=== PATIENT | female | born 1950 | race Two or more races ===

== ENCOUNTER 2024-05-09 18:03 | Inpatient (IN) | payer OTHER ==
[~2024-05-09] VITALS: Ht 162.6 cm; Wt 119.8 kg
--- NOTE | 2024-05-09 18:34 | ECG ---
[facility] Test Date: 2024-05-09 Test Time: 18:21:00 Pat Name: ARELIS CROWLEY Department: er Room: 0216T Gender: F Clinical Administrator: gp : 1950 Requested By: PRISCILA ALLEN Order Number: [id number] Reading MD: Noel Mojica Measurements Intervals [place] Rate: 132 P: 0 OR: 0 QRS: -36 QRSD: 96 T: -5 QT: 346 QTc: 513 Interpretive Statements Atrial fibrillation Left axis deviation Repol abnrm suggests ischemia, inferior leads Electronically Signed On 05-10-2024 14:59:39 PDT by Noel Mojica Please click the below link to view image of tracing.
[2024-05-09 19:00] VITALS: PULSE 115; RESP 17; O2SAT 95
--- NOTE | 2024-05-09 19:52 | ED.PDOC ---
History of Present Illness HPI Comments 73 y/o F, with a Hx of HLD, HTN, hypothyroidism, morbid obesity, and 2xC- sections, presents with c/o non-radiating, lower abdominal pain, nausea, diarrhea, and poor appetite, today. Patient reports being sent from an urgent care facility after being seen, earlier today, for unprovoked onset of persisting symptoms, with exception of diarrhea, 3 days ago. Patient states on also having urine retention, constipation, and fever symptoms, initially, for the first 2 days that subsided on their own, with onset of diarrhea, today. Patient denies having any vomiting, blood-streaked stools, urinary symptoms, weakness, fever, chills, or other associated symptoms or modifiers at this time. 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 Hx Family History Family History: Unknown Social History Smoker: Non-Smoker Alcohol: Denies ETOH Use Drugs: Denies Drug Use Lives In: Home Constitutional: denies: chills, diaphoresis, fatigue, fever, malaise, sweats, weakness, others EENTM: denies: blurred vision, double vision, ear bleeding, ear discharge, ear drainage, ear pain, ear ringing, eye pain, eye redness, hearing loss, mouth pain, mouth swelling, nasal discharge, nose bleeding, nose congestion, nose pain , photophobia, tearing, throat pain, throat swelling, voice changes, others Respiratory: denies: cough, hemoptysis, orthopnea, SOB at rest, shortness of breath, SOB with excertion, stridor, wheezing, others Cardiovascular: denies: chest pain, dizzy spells, diaphoresis, Dyspnea on exertion, edema, irregular heart beat, left arm pain, lightheadedness, palpitations, PND, syncope, others Gastrointestinal: reports: abdominal pain (lower abdominal region ), diarrhea, nausea, poor appetite; denies: abdomen distended, blood streaked bowels, constipated, dysphagia, difficulty swallowing, hematemesis, melena, poor fluid intake, rectal bleeding, rectal pain, vomiting, others Genitourinary: denies: abnormal vagina bleeding, burning, dyspareunia, dysuria, flank pain, frequency, hematuria, incontinence, pain, , vagina discharge, urgency, others Neurological: denies: dizziness, fainting, headache, left sided numbness, left sided weakness, numbness, paresthesia, pre-existing deficit, right sided numbness, right sided weakness, seizure, speech problems, tingling, tremors, weakness, others Musculoskeletal: denies: back pain, gout, joint pain, joint swelling, muscle pain, muscle stiffness, neck pain, others Integumetry: denies: bruises, change in color, change in hair/nails, dryness, laceration, lesions, lumps, rash, wounds, others Hematologic/Lymphatic: denies: anemia, blood clots, easy bleeding, easy bruising, swollen glands, others Endocrine: denies: excessive hunger, excessive sweating, excessive thirst, excessive urination, flushing, intolerance to cold, intolerance to heat, unexplained weight gain, unexplained weight loss, others Psychiatric: denies: anxiety, bipolar disorder, depression, hopeless, panic disorder, schizophrenia, sleepless, suicidal, others All Other Systems: Reviewed and Negative Physical Exam General Appearance: Moderate Distress, Obese HEENT: Normal ENT Inspection, Pharynx Normal, TMs Normal Neck: Full Range of Motion, Non-Tender, Normal, Normal Inspection Respiratory: Chest Non-Tender, Lungs Clear, No Accessory Muscle Use, No Respiratory Distress, Normal Breath Sounds Cardiovascular: No Edema, No JVD, No Murmur, No Gallop, Normal Peripheral Pulses, Regular Rate/Rhythm Breast Exam: Deferred Gastrointestinal: No Organomegaly, No Pulsatile Mass, Normal Bowel Sounds, Soft, Other (lower sub-pannus tenderness ) Genitalia: Deferred Pelvic: Deferred Rectal: Deferred Extremities: No calf tenderness, Normal capillary refill, Normal inspection, Normal range of motion, Non-tender, No pedal edema Musculoskeletal : Apperance: Normal 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 Was a procedure done?: No EKG EKG : Pulse Rate (adult): 132 [place]: Normal Cardiac Rhythm: Afib Block: None Hypertrophy: None ST: Normal Differential Dx Considerations may include: gastritis, gastroenteritis, appendicitis, diverticulitis, cholecystitis, cholelithiasis, nephrolithiasis, PUD, spoiled food, UTI, acute abdomen X-Ray, Labs, Meds, VS Vital Signs Date Time Temp Pulse Resp B/P (MAP) Pulse Ox O2 Delivery O2 Flow Rate FiO2 05/09/24 22:16 98 21 149/51 05/09/24 22:11 98 149/58 05/09/24 20:08 98.8 109 15 155/49 (84) 96 98.8 05/09/24 20:08 109 15 96 Room Air* 0 21 05/09/24 19:52 132 05/09/24 19:00 115 17 95 Room Air* 0 21 05/09/24 19:00 115 14 125/52 (76) 93 05/09/24 18:21 132 05/09/24 18:15 98.6 132 18 121/96 (104) 98 Lab Test 05/09/24 21:26 05/09/24 21:14 05/09/24 20:14 05/09/24 18:24 Range/Units Troponin I High Sensitivity 324 *H 322 *H </=34 ng/L Urine Color [place] H Yellow Urine Clarity Turbid H Clear Urine pH 6.0 5.0-9.0 Urine Specific [place] 1.024 1.001-1.035 Urine Protein 3+ H Negative Urine Ketones Trace Negative Urine Blood 1+ H Negative /uL Urine Nitrite Negative Negative Urine Bilirubin 1+ H Negative Urine Urobilinogen 3 H Negative mg/dL Urine Leukocyte Esterase 3+ Negative /uL Urine RBC 4 0 - 4 /hpf Urine WBC 316 0 - 5 /hpf Urine Squamous Epithelial Cells Few <5 /hpf Urine Bacteria None seen None Seen /hpf Urine Hyaline Casts Mod 0 - 2 /lpf Urine Granular Casts Few 0 /lpf Urine Mucus Moderate None Seen Urine Glucose Normal Normal mg/dL White Blood Count 22.2 H 4.4-10.8 10^3/uL Red Blood Count 3.75 L 4.0-5.20 10^6/uL Hemoglobin 11.1 L 12.2-16.2 g/dL Hematocrit 34.2 L 36.0-46.0 % Mean Corpuscular Volume 91.2 80.0-100.0 fL Mean Corpuscular Hemoglobin 29.7 28.0-32.0 pg Mean Corpuscular Hemoglobin Concent 32.6 32.0-36.0 g/dL Red Cell Distribution Width 14.8 H 11.8-14.3 % Platelet Count 385 140-450 10^3/uL Mean Platelet Volume 8.6 6.9-10.8 fL Neutrophils (%) (Auto) 86.7 H 37.0-80.0 % Lymphocytes (%) (Auto) 5.4 L 10.0-50.0 % Monocytes (%) (Auto) 7.0 0.0-12.0 % Eosinophils (%) (Auto) 0.6 0.0-7.0 % Basophils (%) (Auto) 0.3 0.0-2.0 % Neutrophils # (Auto) 19.3 H 1.6-8.6 10 ^3/uL Lymphocytes # (Auto) 1.2 0.4-5.4 10 ^3/uL Monocytes # (Auto) 1.6 H 0-1.3 10 ^3/uL Eosinophils # (Auto) 0.1 0-0.8 10 ^3/uL Basophils # (Auto) 0.1 0-0.2 10 ^3/uL Nucleated Red Blood Cells 0.0 % Prothrombin Time 12.1 H 9.3-11.8 sec Prothrombin Time INR 1.15 0.9-1.15 Activated Partial Thromboplast Time 28.3 24.5-34.5 SEC Sodium Level 132 L 136-145 mmol/L Potassium Level 3.4 L 3.5-5.1 mmol/L Chloride Level 101 98-107 mmol/L Carbon Dioxide Level 25 20-31 mmol/L Anion Gap 6 5-15 Blood Urea Nitrogen 10 9-23 mg/dL Creatinine 0.91 0.550-1.02 mg/dL Glomerular Filtration Rate Calc 66 >90 mL/min BUN/Creatinine Ratio 11.0 10.0-20.0 Serum Glucose 111 H 74-106 mg/dL Calcium Level 9.0 8.7-10.4 mg/dL Total Bilirubin 1.0 0.2-1.0 mg/dL Aspartate Amino Transferase (AST) 36 13-40 U/L Alanine Aminotransferase (ALT) 78 H 7-40 U/L Alkaline Phosphatase 150 H 46-116 U/L B-Type Natriuretic Peptide 722.28 0-100 pg/mL Total Protein 6.0 5.7-8.2 g/dL Albumin 3.6 3.2-4.8 g/dL Lipase 29 12-53 U/L POC Glucose 123 H 70-106 mg/dl Current Medications Medications (Trade) Dose Ordered Sig/Lanette Route Start Time Stop Time Status Last Admin Metoprolol Tartrate (Lopressor) 5 mg Q5M IV 05/09/24 19:45 05/09/24 22:11 Hydromorphone HCl (Dilaudid Injection) 1 mg ONCE ONCE IV 05/09/24 20:15 05/09/24 20:16 DC 05/09/24 22:16 Sodium Chloride 1,000 ml @ 1,000 mls/hr Q1H ONCE IV 05/09/24 20:15 05/09/24 21:14 DC 05/09/24 22:08 Ondansetron HCl (Zofran) 4 mg ONCE ONCE IV 05/09/24 20:15 05/09/24 20:16 DC 05/09/24 22:16 [place] [id number] Ph: [phone] DIAGNOSTIC IMAGING Diagnostic Imaging Report : [id number] Signed PATIENT: ARELIS CROWLEY ACCT: [id number] UNIT: [id number] : 1950 LOC: ER ROOM / BED: / AGE / SEX: 73 / F ADM STATUS: REG ER SERVICE 02 ORDERING PHYSICIAN: PRISCILA ALLEN MD PROCEDURE(s): CXRP - CHEST PORTABLE REASON: abd pain ORDER NUMBER(s): [id number], ACCESSION NUMBER(s): [id number] CHEST RADIOGRAPH Indication:abd pain Technique: Single frontal view of the chest was obtained Comparison: None FINDINGS: Lines and Tubes: None Lungs: No focal consolidation. Pleura: No effusion. No pneumothorax. Cardiomediastinal contours: Unremarkable Bones: No acute osseous abnormality. IMPRESSION: No acute cardiopulmonary disease. ATED BY: JANAK SCANLON DO DICTATED DATE/TIME: 05/09/242208 SIGNED BY: JANAK SCANLON DO SIGNED DATE/TIME: 05/09/242208 CC: [place] [id number] Ph: [phone] DIAGNOSTIC IMAGING Diagnostic Imaging Report : [id number] Signed PATIENT: ARELIS CROWLEY ACCT: [id number] UNIT: [id number] : 1950 LOC: ER ROOM / BED: / AGE / SEX: 73 / F ADM STATUS: REG ER SERVICE 02 ORDERING PHYSICIAN: PRISCILA ALLEN MD PROCEDURE(s): ABPL - CT AB PEL WO CON-NO ORAL OR IV REASON: abd pain ORDER NUMBER(s): [id number], ACCESSION NUMBER(s): [id number] Exam: CT CT AB PEL WO CON-NO ORAL OR IV History: abd pain Comparison Study: None available at time of dictation. TECHNIQUE: Multidetector CT of the abdomen was performed from lung bases to pubic symphysis. Imaging was performed without IV contrast. Axial, coronal and sagittal multiplanar reformats were obtained from the axial data set by the technologist. Radiation Dose Information: CT Dose: CTDI volume is 25.83 mGy. Dose-length product is 1601.61 mGy*cm FINDINGS: Evaluation of solid organs is limited due to lack of intravenous contrast use. Findings: Lung Bases: No acute or significant lung base finding. Normal heart size. No pleural or pericardial effusion. Liver: The liver is normal in size. No focal lesions. Gallbladder and Biliary Tree: Unremarkable Spleen: Unremarkable Pancreas: The pancreas is grossly normal in appearance. Adrenal Glands: Unremarkable Kidneys: Kidneys are grossly normal without calculi or hydronephrosis. Bladder: Grossly unremarkable for degree of distention. SBowel: The stomach is grossly normal in appearance. Small hiatal hernia. Sigmoid diverticulosis with radiographic findings suggesting diverticulitis. Pneumoperitoneum is seen in the pelvis. The appendix is not visualized; however, no secondary findings of acute appendicitis identified. Ascites: Absent Lymphadenopathy: No mesenteric, retroperitoneal or periportal lymphadenopathy. Abdominal Wall and Mesentery: Unremarkable. Vasculature: The visualized abdominal aorta is normal in size and caliber. Evaluation of abdominal and pelvic vessels is limited due to lack of intravenous contrast. Pelvic Organs: Unremarkable Musculoskeletal: No aggressive focal bony lesions, acute fractures or dislocation. Soft tissues: Unremarkable IMPRESSION: 1. Diverticulitis with air in the retroperitoneum. No findings to suggest abscess at this time. 2. Cholelithiasis 3. Small hiatal hernia. Radiation optimization: All CT scans at this facility use at least one of these dose optimization techniques: automated exposure control mA and/or kV adjustment per patient size (includes targeted exams where dose is matched to clinical indication) or iterative reconstruction. ATED BY: SHELLI KIM Jr., DO DICTATED DATE/TIME: 05/09/242214 SIGNED BY: SHELLI KIM Jr., SIGNED DATE/TIME: 05/09/242214 CC: First troponin is is 322. Second troponin is 324. EKG shows no signs of ischemia, but AFib rhythm at a heart rate of 150 which was treated with metoprolol. UA reveals urinary tract [place] [address]. CMP essentially normal except elevated LFTs UA reveals urinary tract infection. The patient was started on antibiotics Zosyn and Levaquin. She was given IV fluids. Pain management with Dilaudid. NG tube was placed for diverticulitis. Time of 1ST Reevaluation: 19:10 Reevaluation 1ST: Unchanged Patient Education/Counseling: Diagnosis, Treatment Family Education/Counseling: No Family Present Departure 1 Departure Time of Disposition: 23:06 Impression: Primary Impression: Urinary tract infection Qualified Codes: N30.01 - Acute cystitis with hematuria Additional Impressions: Atrial fibrillation Qualified Codes: I48.91 - Unspecified atrial fibrillation Non-STEMI (non-ST elevated myocardial infarction) Elevated brain natriuretic peptide (BNP) level Cholelithiasis Qualified Codes: K80.42 - Calculus of bile duct with acute cholecystitis without obstruction Hiatal hernia Diverticulitis Elevated LFTs Disposition: ADMITTED INPATIENT Admit to: Tele Condition: Guarded Critical Care Note Critical Care Time?: Yes (1 hr-critical care time only) Stability Stability form required: No Heart Score Heart Score: Heart Score Response (Comments) Value History Slightly Suspicious 0 EKG Repolarization Disturb 1 Age >65 2 Risk Factors >3 or Hx ASHD 2 Troponin >3 x's Normal limit 2 Total 7 I personally scribed for PRISCILA ALLEN MD ([email or web address]) on 05/09/24 at 19:52. Electronically submitted by Aniceto Reed ([email or web address]). I personally scribed for PRISCILA ALLEN MD ([email or web address]) on 05/09/24 at 22:52. Electronically submitted by Aniceto Reed ([email or web address]). PRISCILA ALLEN MD May 09, 2024 19:52
[2024-05-09 20:08] VITALS: PULSE 109; RESP 15; O2SAT 96
[2024-05-09 20:39] LABS: Basophils # (auto) 0.1 10 ^3/uL (0-0.2); Basophils % (auto) 0.3 % (0.0-2.0); Eosinophils # (auto) 0.1 10 ^3/uL (0-0.8); Eosinophils % (auto) 0.6 % (0.0-7.0); Hematocrit 34.2 % (36.0-46.0); Hemoglobin 11.1 g/dL (12.2-16.2); Lymphocytes # (auto) 1.2 10 ^3/uL (0.4-5.4); Lymphocytes % (auto) 5.4 % (10.0-50.0); Mean Corpuscular Hemoglobin 29.7 pg (28.0-32.0); Mean Corpuscular Hgb Conc. 32.6 g/dL (32.0-36.0); Mean Corpuscular Volume 91.2 fL (80.0-100.0); Monocytes # (auto) 1.6 10 ^3/uL (0-1.3); Neutrophils # (auto) 19.3 10 ^3/uL (1.6-8.6); Neutrophils % (auto) 86.7 % (37.0-80.0); Platelet Count (auto) 385 10^3/uL (140-450); Red Blood Cells 3.75 10^6/uL (4.0-5.20); Red Cell Distribution Width 14.8 % (11.8-14.3); White Blood Cell 22.2 10^3/uL (4.4-10.8)
[2024-05-09 20:56] LABS: Alanine Aminotransferase 78 U/L (7-40); Albumin 3.6 g/dL (3.2-4.8); Alkaline Phosphatase 150 U/L (46-116); Anion Gap 6 (5-15); Aspartate Aminotransferase 36 U/L (13-40); Blood Urea Nitrogen 10 mg/dL (9-23); Carbon Dioxide 25 mmol/L (20-31); Chloride 101 mmol/L (98-107); Glucose 111 mg/dL (74-106); Lipase 29 U/L (12-53); Potassium 3.4 mmol/L (3.5-5.1); Sodium 132 mmol/L (136-145)
[2024-05-09 21:25] LABS: INR 1.15 (0.9-1.15); Partial Thromboplastin Time 28.3 SEC (24.5-34.5); Prothrombin Time 12.1 sec (9.3-11.8)
[2024-05-09 21:28] LABS: Urine Bacteria None Seen /hpf (None Seen)
[2024-05-09 21:54] LABS: Urine Blood 1+ /uL (Negative); Urine Clarity Turbid (Clear); Urine Color Orange (Yellow); Urine Hyaline Cast MOD /lpf (0 - 2); Urine Mucus MODERATE (None Seen); Urine Protein, UAD 3+ (Negative); Urine Specific Gravity 1.024 (1.001-1.035); Urine Urobilinogen 3 mg/dL (Negative); Urine WBC 316 /hpf (0 - 5)
[2024-05-09] MEDS: SODIUM CHLORIDE 0.9% 1,000 ML IV ONE ×2 (22:08→23:00)
[2024-05-09] MEDS: METOPROLOL TARTRATE 1MG/1ML-5ML VIAL IV SCH (22:11)
--- NOTE | 2024-05-09 22:11 | DVH ---
CHEST RADIOGRAPH Indication:abd pain Technique: Single frontal view of the chest was obtained Comparison: None FINDINGS: Lines and Tubes: None Lungs: No focal consolidation. Pleura: No effusion. No pneumothorax. Cardiomediastinal contours: Unremarkable Bones: No acute osseous abnormality. IMPRESSION: No acute cardiopulmonary disease.
[2024-05-09] MEDS: ONDANSETRON HCL 4 MG/2 ML VIAL IV ONE (22:16)
[2024-05-09] MEDS: HYDROmorphone HCL 2 MG/ML VL/or syr IV ONE (22:16)
--- NOTE | 2024-05-09 22:17 | DVH ---
Exam: CT CT AB PEL WO CON-NO ORAL OR IV History: abd pain Comparison Study: None available at time of dictation. TECHNIQUE: Multidetector CT of the abdomen was performed from lung bases to pubic symphysis. Imaging was performed without IV contrast. Axial, coronal and sagittal multiplanar reformats were obtained fr om the axial data set by the technologist. Radiation Dose Information: CT Dose: CTDI volume is 25.83 mGy. Dose-length product is 1601.61 mGy*cm FINDINGS: Evaluation of solid organs is limited due to lack of intravenous contrast use. Findings: Lung Bases: No acute or significant lung base finding. Normal heart size. No pleural or pericardial effusion. Liver: The liver is normal in size. No focal lesions. Gallbladder and Biliary Tree: Unremarkable Spleen: Unremarkable Pancreas: The pancreas is grossly normal in appearance. Adrenal Glands: Unremarkable Kidneys: Kidneys are grossly normal without calculi or hydronephrosis. Bladder: Grossly unremarkable for degree of distention. SBowel: The stomach is grossly normal in appearance. Small hiatal hernia. Sigmoid diverticulosis with radiographic findings suggesting diverticulitis. Pneumoperitoneum is seen in the pelvis. The appen hong is not visualized; however, no secondary findings of acute appendicitis identified. Ascites: Absent Lymphadenopathy: No mesenteric, retroperitoneal or periportal lymphadenopathy. Abdominal Wall and Mesentery: Unremarkable. Vasculature: The visualized abdominal aorta is normal in size and caliber. Evaluation of abdominal a nd pelvic vessels is limited due to lack of intravenous contrast. Pelvic Organs: Unremarkable Musculoskeletal: No aggressive focal bony lesions, acute fractures or dislocation. Soft tissues: Unremarkable IMPRESSION: 1. Diverticulitis with air in the retroperitoneum. No findings to suggest abscess at this time. 2. Cholelithiasis 3. Small hiatal hernia. Radiation optimization: All CT scans at this facility use at least one of these dose optimization salian hniques: automated exposure control mA and/or kV adjustment per patient size (includes targeted exam s where dose is matched to clinical indication) or iterative reconstruction.
[2024-05-09] MEDS ORDERED: MORPHINE SULFATE INJ 2 MG/ml SYRG IV PRN (23:00)
[2024-05-09] MEDS ORDERED: ONDANSETRON HCL 4 MG/2 ML VIAL IV PRN (23:00)
[2024-05-09] MEDS ORDERED: NITROGLYCERIN 0.4 MG SL TAB SL PRN (23:00)
[2024-05-10] VITALS (9 sets, daily range): BP systolic 90–143; BP diastolic 25–67; PULSE 67–138; RESP 18–22; TEMP 98–100; O2SAT 90–98
--- NOTE | 2024-05-10 00:39 | DVHHP2 ---
History of Present Illness Reason for Visit: Abdominal pain History of Present Illness 73-year-old female presents for evaluation of abdominal pain. Patient presents with a four day history of lower abdominal pain with associated nausea and diarrhea for the past two days. Denies fever or chills. Denies cardiac or respiratory symptoms. Past Medical History Hypothyroid, hypertension and dyslipidemia Past Surgical History Family History Noncontributory Smoke: No ALCOHOL: none Drugs: None Lives: with Family Review of Systems Review of Systems Review of systems are currently negative otherwise addressed in HPI. Allergies: Coded Allergies: NO KNOWN ALLERGIES (Unverified , 05/09/24) Medications Current Medications Medications Dose Ordered Sig/Lanette Route Start Time Stop Time Status Last Admin Dose Admin Metoprolol Tartrate 5 mg Q5M IV 05/09/24 19:45 05/09/24 22:11 5 MG Ceftriaxone Sodium 50 ml @ 100 mls/hr DAILY@09 IV 05/10/24 09:00 Metronidazole 100 ml @ 100 mls/hr Q8HR IV 05/10/24 06:00 Aspirin 81 mg DAILY PO 05/10/24 10:00 Atenolol 25 mg BID PO 05/10/24 10:00 Levothyroxine Sodium 125 mcg QAM@0600 PO 05/10/24 06:00 Lisinopril 40 mg DAILY PO 05/10/24 10:00 Atorvastatin Calcium 40 mg HS PO 05/10/24 22:00 Acetaminophen/ Hydrocodone Bitart 1 tab Q4HP PRN PO 05/09/24 23:00 Ondansetron HCl 4 mg Q4HP PRN IV 05/09/24 23:00 UNV Acetaminophen 650 mg Q6HP PRN PO 05/09/24 23:00 Morphine Sulfate 2 mg Q6HPRN PRN IV 05/09/24 23:00 Nitroglycerin 0.4 mg Q5MINP PRN SL 05/09/24 23:00 Morphine Sulfate 2 mg Q30M PRN IV 05/09/24 23:00 Exam Vital Signs Vital Signs Date Time Temp Pulse Resp B/P (MAP) Pulse Ox O2 Delivery O2 Flow Rate FiO2 05/09/24 22:16 98 21 149/51 05/09/24 20:08 98.8 96 98.8 05/09/24 20:08 Room Air* 0 21 Exam Gen: 73-year-old female in mild distress, morbidly obese Skin: Warm, dry, normal color and texture, no rash. HEENT: Normocephalic atraumatic, mucous membranes moist and pink. Neck: Cervical and supraclavicular nodes normal without enlargement, trachea is midline, thyroid gland is normal without masses. Pulmonary: Clear to auscultation and percussion bilaterally. Cardiac: Regular rate and rhythm. No murmur Abdomen: Soft, lower abdominal pain, nondistended, bowel sounds present all 4 quadrants, no guarding, no rigidity, no organomegaly. Extremities: No cyanosis, clubbing, no edema Neuro: Cranial nerves II through XII grossly intact, normal affect and speech, no focal motor deficits. Labs/Xrays ORDERING PHYSICIAN: PRISCILA ALLEN MD PROCEDURE(s): CXRP - CHEST PORTABLE REASON: abd pain ORDER NUMBER(s): [id number], ACCESSION NUMBER(s): [id number] CHEST RADIOGRAPH Indication:abd pain Technique: Single frontal view of the chest was obtained Comparison: None FINDINGS: Lines and Tubes: None Lungs: No focal consolidation. Pleura: No effusion. No pneumothorax. Cardiomediastinal contours: Unremarkable Bones: No acute osseous abnormality. IMPRESSION: No acute cardiopulmonary disease. RING PHYSICIAN: PRISCILA ALLEN MD PROCEDURE(s): ABPL - CT AB PEL WO CON-NO ORAL OR IV REASON: abd pain ORDER NUMBER(s): [id number], ACCESSION NUMBER(s): [id number] Exam: CT CT AB PEL WO CON-NO ORAL OR IV History: abd pain Comparison Study: None available at time of dictation. TECHNIQUE: Multidetector CT of the abdomen was performed from lung bases to pubic symphysis. Imaging was performed without IV contrast. Axial, coronal and sagittal multiplanar reformats were obtained from the axial data set by the technologist. Radiation Dose Information: CT Dose: CTDI volume is 25.83 mGy. Dose-length product is 1601.61 mGy*cm FINDINGS: Evaluation of solid organs is limited due to lack of intravenous contrast use. Findings: Lung Bases: No acute or significant lung base finding. Normal heart size. No pleural or pericardial effusion. Liver: The liver is normal in size. No focal lesions. Gallbladder and Biliary Tree: Unremarkable Spleen: Unremarkable Pancreas: The pancreas is grossly normal in appearance. Adrenal Glands: Unremarkable Kidneys: Kidneys are grossly normal without calculi or hydronephrosis. Bladder: Grossly unremarkable for degree of distention. SBowel: The stomach is grossly normal in appearance. Small hiatal hernia. Sigmoid diverticulosis with radiographic findings suggesting diverticulitis. Pneumoperitoneum is seen in the pelvis. The appendix is not visualized; however, no secondary findings of acute appendicitis identified. Ascites: Absent Lymphadenopathy: No mesenteric, retroperitoneal or periportal lymphadenopathy. Abdominal Wall and Mesentery: Unremarkable. Vasculature: The visualized abdominal aorta is normal in size and caliber. Ev aluation of abdominal and pelvic vessels is limited due to lack of intravenous contrast. Pelvic Organs: Unremarkable Musculoskeletal: No aggressive focal bony lesions, acute fractures or dislocation. Soft tissues: Unremarkable IMPRESSION: 1. Diverticulitis with air in the retroperitoneum. No findings to suggest abscess at this time. 2. Cholelithiasis 3. Small hiatal hernia. Radiation optimization: All CT scans at this facility use at least one of these dose optimization techniques: automated exposure control mA and/or kV adjustment per patient size (includes targeted exams where dose is matched to clinical indication) or iterative reconstruction. Labs Test 05/09/24 23:42 05/09/24 23:20 05/09/24 21:14 05/09/24 20:14 Range/Units Lactic Acid Level 0.7 0.4-2.0 mmol/L Troponin I High Sensitivity 307 *H </=34 ng/L Urine Color Ernul H Yellow Urine Clarity Turbid H Clear Urine pH 6.0 5.0-9.0 Urine Specific [place] 1.024 1.001-1.035 Urine Protein 3+ H Negative Urine Ketones Trace Negative Urine Blood 1+ H Negative /uL Urine Nitrite Negative Negative Urine Bilirubin 1+ H Negative Urine Urobilinogen 3 H Negative mg/dL Urine Leukocyte Esterase 3+ Negative /uL Urine RBC 4 0 - 4 /hpf Urine WBC 316 0 - 5 /hpf Urine Squamous Epithelial Cells Few <5 /hpf Urine Bacteria None seen None Seen /hpf Urine Hyaline Casts Mod 0 - 2 /lpf Urine Granular Casts Few 0 /lpf Urine Mucus Moderate None Seen Urine Glucose Normal Normal mg/dL White Blood Count 22.2 H 4.4-10.8 10^3/uL Red Blood Count 3.75 L 4.0-5.20 10^6/uL Hemoglobin 11.1 L 12.2-16.2 g/dL Hematocrit 34.2 L 36.0-46.0 % Mean Corpuscular Volume 91.2 80.0-100.0 fL Mean Corpuscular Hemoglobin 29.7 28.0-32.0 pg Mean Corpuscular Hemoglobin Concent 32.6 32.0-36.0 g/dL Red Cell Distribution Width 14.8 H 11.8-14.3 % Platelet Count 385 140-450 10^3/uL Mean Platelet Volume 8.6 6.9-10.8 fL Neutrophils (%) (Auto) 86.7 H 37.0-80.0 % Lymphocytes (%) (Auto) 5.4 L 10.0-50.0 % Monocytes (%) (Auto) 7.0 0.0-12.0 % Eosinophils (%) (Auto) 0.6 0.0-7.0 % Basophils (%) (Auto) 0.3 0.0-2.0 % Neutrophils # (Auto) 19.3 H 1.6-8.6 10 ^3/uL Lymphocytes # (Auto) 1.2 0.4-5.4 10 ^3/uL Monocytes # (Auto) 1.6 H 0-1.3 10 ^3/uL Eosinophils # (Auto) 0.1 0-0.8 10 ^3/uL Basophils # (Auto) 0.1 0-0.2 10 ^3/uL Nucleated Red Blood Cells 0.0 % Prothrombin Time 12.1 H 9.3-11.8 sec Prothrombin Time INR 1.15 0.9-1.15 Activated Partial Thromboplast Time 28.3 24.5-34.5 SEC Sodium Level 132 L 136-145 mmol/L Potassium Level 3.4 L 3.5-5.1 mmol/L Chloride Level 101 98-107 mmol/L Carbon Dioxide Level 25 20-31 mmol/L Anion Gap 6 5-15 Blood Urea Nitrogen 10 9-23 mg/dL Creatinine 0.91 0.550-1.02 mg/dL Glomerular Filtration Rate Calc 66 >90 mL/min BUN/Creatinine Ratio 11.0 10.0-20.0 Serum Glucose 111 H 74-106 mg/dL Calcium Level 9.0 8.7-10.4 mg/dL Total Bilirubin 1.0 0.2-1.0 mg/dL Aspartate Amino Transferase (AST) 36 13-40 U/L Alanine Aminotransferase (ALT) 78 H 7-40 U/L Alkaline Phosphatase 150 H 46-116 U/L B-Type Natriuretic Peptide 722.28 0-100 pg/mL Total Protein 6.0 5.7-8.2 g/dL Albumin 3.6 3.2-4.8 g/dL Lipase 29 12-53 U/L Test 05/09/24 18:24 Range/Units POC Glucose 123 H 70-106 mg/dl Assessment/Plan Assessment/Plan Assessment Acute diverticulitis Acute abdominal pain Elevated troponin, downtrending Hypokalemia UTI Morbid obesity Plan Admit the patient to telemetry hospitalist GI consultation Cardiology consult Clear liquid diet Rocephin/Flagyl Replete electrolytes Resume home medications Continue treatment per orders. Plan discussed with: Patient My Orders Orders - LULU MINOR Procedure Category Date Status Time Stool Occult Blood LAB 05/09/24 Logged 22:59 Stool Bacterial ELIDA 05/09/24 Logged Culture 22:59 * Gi Dvh Sampler And Test Preparer CONS 05/09/24 Transmitted 22:59 Urine Bacterial ELIDA 05/09/24 In Process Culture 22:59 Ceftriaxone 1gm/50ml PHA 05/10/24 In Process D5w (Rocephin) 09:00 Metronidazole PHA 05/10/24 In Process 500mg/100ml (Flagyl 06:00 * Cardiology Consult CONS 05/09/24 Transmitted 22:59 Aspirin Tablet PHA 05/10/24 In Process 10:00 Atenolol Tablet PHA 05/10/24 In Process (Tenormin Tablet) 10:00 Levothyroxine Tablet PHA 05/10/24 In Process (Synthroid Tablet) 06:00 Lisinopril Tablet PHA 05/10/24 In Process (Zestril Tablet) 10:00 Atorvastatin (Lipitor) PHA 05/10/24 In Process 22:00 Admit ADMIT 05/09/24 Transmitted 22:59 Hydrocodone-Acet PHA 05/09/24 In Process 5/325mg Tab ([place] 23:00 Ondansetron Hcl PHA 05/09/24 Pending (Zofran) 23:00 Complete Blood Count LAB 05/10/24 Logged 04:00 Comprehensive LAB 05/10/24 Logged Metabolic Panel 04:00 Echo 2d Mode Cardiac US 05/09/24 Logged DOP 22:59 Condition: Fair SRINI 05/09/24 In Process 22:59 Acetaminophen Tablet PHA 05/09/24 In Process (Tylenol Tablet) 23:00 Clear Liq Diet DIET 05/10/24 Transmitted Breakfast Bedrest With Bathroom SRINI 05/09/24 In Process Privileg 22:59 Morphine Sulfate PHA 05/09/24 In Process Injection 23:00 Nitroglycerin PHA 05/09/24 In Process Sublingual (Ntrostat 23:00 Morphine Sulfate PHA 05/09/24 In Process Injection 23:00 Stat Ekg For Chest [facility] 05/09/24 In Process Pain 22:59 Notify Of Changes [facility] 05/09/24 In Process From Base 22:59 Disintegrator Operator For [facility] 05/09/24 In Process 24 Hours 22:59 Emergency Dysrhythmia [facility] 05/09/24 In Process Protocol 22:59 Rhythm Strips Once [facility] 05/09/24 In Process Every Shift 22:59 Oxygen By Nasal RT 05/09/24 Transmitted Cannula 22:59 Date of Service: May 09, 2024 Billing Provider: LULU MINOR Common Visit Codes: [id number] INP/OBS CARE (HIGH) LULU MINOR May 10, 2024 00:39
[2024-05-10] MEDS ORDERED: CHOL20007 PO (04:48)
[2024-05-10] MEDS ORDERED: LEVO125T7 PO (04:48)
[2024-05-10] MEDS ORDERED: OMEG1400 PO (04:48)
[2024-05-10] MEDS ORDERED: ATEN-60 PO (04:48)
[2024-05-10] MEDS ORDERED: ASCO500T11 PO (04:48)
[2024-05-10] MEDS ORDERED: VITA1POW XX (04:48)
[2024-05-10] MEDS ORDERED: LISI40TA16 PO (04:48)
[2024-05-10] MEDS: metroNIDAZOLE 500MG/100ML 100 ML IV SCH (05:14)
[2024-05-10] MEDS: POTASSIUM CHL 20 Meq TABLET PO ONE (05:15)
[2024-05-10] MEDS: LEVOTHYROXINE SODIUM 50 MCG TAB PO SCH (05:15)
[2024-05-10] MEDS: PIPERACILLIN-TAZOB 3.375GM 100 ML IV ONE (05:15)
[2024-05-10 06:08] LABS: Basophils # (auto) 0 10 ^3/uL (0-0.2); Basophils % (auto) 0.2 % (0.0-2.0); Eosinophils # (auto) 0.4 10 ^3/uL (0-0.8); Hematocrit 30.2 % (36.0-46.0); Hemoglobin 10.1 g/dL (12.2-16.2); Lymphocytes # (auto) 1.2 10 ^3/uL (0.4-5.4); Lymphocytes % (auto) 5.5 % (10.0-50.0); Mean Corpuscular Hemoglobin 30.2 pg (28.0-32.0); Mean Corpuscular Hgb Conc. 33.3 g/dL (32.0-36.0); Mean Corpuscular Volume 90.7 fL (80.0-100.0); Monocytes # (auto) 1.9 10 ^3/uL (0-1.3); Neutrophils # (auto) 17.9 10 ^3/uL (1.6-8.6); Neutrophils % (auto) 83.3 % (37.0-80.0); Platelet Count (auto) 359 10^3/uL (140-450); Red Blood Cells 3.33 10^6/uL (4.0-5.20); Red Cell Distribution Width 14.8 % (11.8-14.3); White Blood Cell 21.5 10^3/uL (4.4-10.8)
[2024-05-10 06:51] LABS: Alanine Aminotransferase 63 U/L (7-40); Albumin 3.2 g/dL (3.2-4.8); Alkaline Phosphatase 138 U/L (46-116); Anion Gap 10 (5-15); Aspartate Aminotransferase 30 U/L (13-40); BUN/Creatinine Ratio 13.1 (10.0-20.0); Blood Urea Nitrogen 14 mg/dL (9-23); Calcium 8.6 mg/dL (8.7-10.4); Carbon Dioxide 22 mmol/L (20-31); Chloride 103 mmol/L (98-107); Glucose 106 mg/dL (74-106); Potassium 3.6 mmol/L (3.5-5.1); Sodium 135 mmol/L (136-145)
[2024-05-10 06:52] LABS: Bilirubin, Total 0.6 mg/dL (0.2-1.0); Total Protein 5.6 g/dL (5.7-8.2)
[2024-05-10 08:57] LABS: Magnesium 1.7 mg/dL (1.6-2.6)
[2024-05-10 08:58] LABS: Phosphorus 3.7 mg/dL (2.4-5.1)
[2024-05-10] MEDS: cefTRIAXone 1GM/50ML D5W 50 ML IV SCH (09:24)
[2024-05-10] MEDS: ACETAMINOPHEN 325 MG TAB PO PRN (09:30)
[2024-05-10] MEDS ORDERED: ENOXAPARIN SOD 100 MG/1 ML SYRINGE SC SCH (10:00)
[2024-05-10] MEDS: ASPirin 81 mg TAB PO SCH (11:00)
[2024-05-10] MEDS: LISINOPRIL 20 MG TAB PO SCH (11:00)
[2024-05-10] MEDS: ATENOLOL 25 MG TAB PO SCH (11:00)
[2024-05-10] MEDS: ENOXAPARIN SOD 150 MG/1 ML SYRINGE SC SCH (11:00)
--- NOTE | 2024-05-10 11:06 | DVHINCON2 ---
Date Seen: May 10, 2024 Referring Physician Rob Covington NP Reason for Consultation Elevated Troponin History of Present Illness Vane Reyna is a 73-year-old female patient who presents to the ED with constant, oppressive lower abdominal pain which started on 05/06/2024) associated with fever, chills constipation anuria which lasted 48 hours, and then presented diarrhea, prompting her visit to the ED. denies palpitation, syncope, chest pain, dyspnea, nausea, vomiting, bloody stool, any other kind of bleeding, recent travel, sick contacts, dysuria and motor or sensory deficits. 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 Surgical history: in two opportunities, three eye surgeries (cataracts and retinal detachment) Family history: Noncontributory Social history: Lives in [place] with . Denies tobacco, alcohol and other drug abuse Allergies: Seasonal Home medication: Vitamin ACD, atenolol 25 mg p.o. b.i.d., lisinopril 40 mg p.o. daily, levothyroxine 125 mcg p.o. daily, Arvilla three. Patient seen and examined at bedside. Currently continues with abdominal pain. Was on clear liquid diet, switch to NPO due to CT findings (diverticulitis with air in retroperitoneum) Past Medical History Per HPI Past Surgical History Per HPI Family History: Hypertension G8 MOTHER, , Age: 99 Family History Per HPI Social History Per HPI Allergies: Coded Allergies: NO KNOWN ALLERGIES (Unverified , 05/09/24) Home Meds Reported Medications Ascorbic Acid (VITAMIN C TABLET) 500 Mg Tb, PO, TAB 05/10/24 Vitamin A (Synthetic) (Vitamin A) 1 Pow Pow, 1 XX, POW 05/10/24 Cholecalciferol (VITAMIN D3) 2,000 Unit Tab, PO, TAB 05/10/24 Arvilla-3 Fatty Acids (Arvilla-3) 1,400 Mg Cap, PO, CAP 05/10/24 Levothyroxine Sodium (Levothyroxine Sodium) 125 Mcg Tab, 125 MCG PO QAM for 30 Days, MCG 05/10/24 Lisinopril (Lisinopril) 40 Mg Tab, 40 MG PO DAILY for 30 Days, MG 05/10/24 Atenolol (Atenolol) 25 Mg Tab, 25 MG PO BID for 30 Days, MG 05/10/24 Current Medications Current Medications Medications (Trade) Dose Ordered Sig/Lanette Route PRN Reason Start Time Stop Time Status Last Admin Metoprolol Tartrate (Lopressor) 5 mg Q5M IV 05/09/24 19:45 05/10/24 08:04 DC 05/09/24 22:11 Ceftriaxone Sodium 50 ml @ 100 mls/hr DAILY@09 IV 05/10/24 09:00 05/10/24 09:24 Metronidazole 100 ml @ 100 mls/hr Q8HR IV 05/10/24 06:00 05/10/24 05:14 Aspirin 81 mg DAILY PO 05/10/24 10:00 Atenolol (Tenormin Tablet) 25 mg BID PO 05/10/24 10:00 Levothyroxine Sodium (Synthroid Tablet) 125 mcg QAM@0600 PO 05/10/24 06:00 05/10/24 05:15 Lisinopril (Zestril Tablet) 40 mg DAILY PO 05/10/24 10:00 Atorvastatin Calcium (Lipitor) 40 mg HS PO 05/10/24 22:00 Acetaminophen/ Hydrocodone Bitart ([place] 5/325MG Tab) 1 tab Q4HP PRN PO MODERATE PAIN (4-6 PAIN SCALE) 05/09/24 23:00 Ondansetron HCl (Zofran) 4 mg Q4HP PRN IV NAUSEA / VOMITING 05/09/24 23:00 Hold Acetaminophen (Tylenol Tablet) 650 mg Q6HP PRN PO PAIN SCALE 1-3 OR TEMP>100.4 05/09/24 23:00 05/10/24 09:30 Morphine Sulfate 2 mg Q6HPRN PRN IV SEVERE PAIN (7-10 PAIN SCALE) 05/09/24 23:00 Nitroglycerin (Ntrostat Sublingual) 0.4 mg Q5MINP PRN SL FOR CHEST PAIN 05/09/24 23:00 Morphine Sulfate 2 mg Q30M PRN IV FOR CHEST PAIN 05/09/24 23:00 Enoxaparin Sodium (Lovenox) 130 mg Q12HR SC 05/10/24 10:00 UNV Enoxaparin Sodium (Lovenox) 130 mg BID SC 05/10/24 10:00 Review of Systems Per HPI Vital Signs Vital Signs Date Time Temp Pulse Resp B/P (MAP) Pulse Ox O2 Delivery O2 Flow Rate FiO2 05/10/24 09:31 98.7 107 22 106/25 (52) 90 98.7 05/10/24 02:04 Nasal Cannula* 2 28 Physical Exam Patient lying in bed, in no acute distress General: Lucid, afebrile, mucosae are moist Cardiovascular: Variable S1 and S2, tachycardic. No murmurs, gallops or rubs Respiratory: Normal ventilation mechanics. Clear lung sounds on auscultation Abdomen: Distended, predominant, diffuse tenderness on superficial palpation, no organomegaly, reduced bowel sounds MSK/skin: Mobilizes 4 limbs. Skin is dry and warm Neurological: Oriented in 3 spheres. No motor no sensitive deficits. Pupils are isocoric and reactive Labs/Diagnostic Data Labs Test 05/10/24 05:35 05/10/24 05:25 05/09/24 23:42 05/09/24 23:20 Range/Units Phosphorus Level 3.7 2.4-5.1 mg/dL Magnesium Level 1.7 1.6-2.6 mg/dL White Blood Count 21.5 H 4.4-10.8 10^3/uL Red Blood Count 3.33 L 4.0-5.20 10^6/uL Hemoglobin 10.1 L 12.2-16.2 g/dL Hematocrit 30.2 #L 36.0-46.0 % Mean Corpuscular Volume 90.7 80.0-100.0 fL Mean Corpuscular Hemoglobin 30.2 28.0-32.0 pg Mean Corpuscular Hemoglobin Concent 33.3 32.0-36.0 g/dL Red Cell Distribution Width 14.8 H 11.8-14.3 % Platelet Count 359 140-450 10^3/uL Mean Platelet Volume 8.5 6.9-10.8 fL Neutrophils (%) (Auto) 83.3 H 37.0-80.0 % Lymphocytes (%) (Auto) 5.5 L 10.0-50.0 % Monocytes (%) (Auto) 9.0 0.0-12.0 % Eosinophils (%) (Auto) 2.0 0.0-7.0 % Basophils (%) (Auto) 0.2 0.0-2.0 % Neutrophils # (Auto) 17.9 H 1.6-8.6 10 ^3/uL Lymphocytes # (Auto) 1.2 0.4-5.4 10 ^3/uL Monocytes # (Auto) 1.9 H 0-1.3 10 ^3/uL Eosinophils # (Auto) 0.4 0-0.8 10 ^3/uL Basophils # (Auto) 0 0-0.2 10 ^3/uL Nucleated Red Blood Cells 0.0 % Sodium Level 135 L 136-145 mmol/L Potassium Level 3.6 3.5-5.1 mmol/L Chloride Level 103 98-107 mmol/L Carbon Dioxide Level 22 20-31 mmol/L Anion Gap 10 5-15 Blood Urea Nitrogen 14 9-23 mg/dL Creatinine 1.07 H 0.550-1.02 mg/dL Glomerular Filtration Rate Calc 55 >90 mL/min BUN/Creatinine Ratio 13.1 10.0-20.0 Serum Glucose 106 74-106 mg/dL Hemoglobin A1c 5.5 <5.7 % A1C Calcium Level 8.6 L 8.7-10.4 mg/dL Total Bilirubin 0.6 0.2-1.0 mg/dL Aspartate Amino Transferase (AST) 30 13-40 U/L Alanine Aminotransferase (ALT) 63 H 7-40 U/L Alkaline Phosphatase 138 H 46-116 U/L Total Protein 5.6 L 5.7-8.2 g/dL Albumin 3.2 3.2-4.8 g/dL Vitamin B12 Level 313 211-911 pg/mL Vitamin D 25-Hydroxy 48.6 30.0-100 ng/mL Thyroid Stimulating Hormone (TSH) 0.74 0.55-4.78 uIU/mL Lactic Acid Level 0.7 0.4-2.0 mmol/L Troponin I High Sensitivity 307 *H </=34 ng/L Test 05/09/24 21:14 05/09/24 20:14 05/09/24 18:24 Range/Units Urine Color Leonard H Yellow Urine Clarity Turbid H Clear Urine pH 6.0 5.0-9.0 Urine Specific [place] 1.024 1.001-1.035 Urine Protein 3+ H Negative Urine Ketones Trace Negative Urine Blood 1+ H Negative /uL Urine Nitrite Negative Negative Urine Bilirubin 1+ H Negative Urine Urobilinogen 3 H Negative mg/dL Urine Leukocyte Esterase 3+ Negative /uL Urine RBC 4 0 - 4 /hpf Urine WBC 316 0 - 5 /hpf Urine Squamous Epithelial Cells Few <5 /hpf Urine Bacteria None seen None Seen /hpf Urine Hyaline Casts Mod 0 - 2 /lpf Urine Granular Casts Few 0 /lpf Urine Mucus Moderate None Seen Urine Glucose Normal Normal mg/dL Prothrombin Time 12.1 H 9.3-11.8 sec Prothrombin Time INR 1.15 0.9-1.15 Activated Partial Thromboplast Time 28.3 24.5-34.5 SEC B-Type Natriuretic Peptide 722.28 0-100 pg/mL Lipase 29 12-53 U/L POC Glucose 123 H 70-106 mg/dl Assessment NSTEMI probable type 2 secondary to sepsis Atrial fibrillation RVR of unknown duration (chads Vasc 3 / has bled 0) secondary hypercoagulability state Rule out mesenteric ischemia secondary to AFib Sepsis secondary to diverticulitis with probable perforation Cholelithiasis Hypertension Hypothyroidism Morbid obesity Plan/Recommendation Most likely cause of elevated troponin is sepsis due to diverticulitis with probable perforation. Patient's EKG shows AFib RVR of unknown time, we will indicate rate control at this time, no cardioversion. Have hold enoxaparin since patient may need urgent surgery. Consulted surgery, patient is currently NPO Ordered echocardiogram, pending Ordered abdominal CT with contrast to rule out acute mesenteric ischemia. Discussed case with Dr. Cho, patient, family and nurses: NSTEMI probably secondary to sepsis due to perforated diverticulitis. Diagnosed AFib RVR of unknown time, have hold enoxaparin at this time since unclear if patient will require surgery. Suggest ruling out mesenteric ischemia. Pending echocardiogram Plan discussed with: Patient, Daughter, Other (Nurses) Date of Service: May 10, 2024 Billing Provider: YESSICA CHO MD Cardiology Common Codes: [id number] INP/OBS CARE (High), [id number] CARE 30-74 MIN NANETTE CRAFT RESIDENT May 10, 2024 11:06
--- NOTE | 2024-05-10 13:02 | DVHINCON2 ---
GI Consult Consult Note GI consult note Date of Consultation: 05/10/2024 Chief Complaint: Diverticulitis Referring Physician: Adria BEY H&P: 73-year-old female admitted for abdominal pain Patient admits to lower abdominal pain started five days ago. Patient has nausea, no vomiting Patient is started with diarrhea, one day ago an episode every 30 minutes to 1 hour. Yellow in color. No melena or red blood in stool Patient had similar episode about 20 years ago No colonoscopy in past Past Medical History: Hypothyroid, hypertension and dyslipidemia Past Surgical History: Social History: NO smoking, drinking ETOH and use of illegal drugs. Family History: Noncontributory Review of Systems: Constitutional: no fever, chill, weight loss HEENT: no eye pain, no hearing loss, no oral lesion, no scleral icterus Heart: no chest pain, no chest pressure Lung: no cough, no dyspnea with exertion Abdomen: see HPI Physical exam: General: NAD, AAOX3 Chest: lung torres clear to auscultation Heart: RRR, no murmur Abdomen: [id number] lower abdominal and suprapubic tenderness to palpation, +BS Labs: Labs Test 05/10/24 05:35 05/10/24 05:25 05/09/24 23:42 05/09/24 23:20 Range/Units Phosphorus Level 3.7 2.4-5.1 mg/dL Magnesium Level 1.7 1.6-2.6 mg/dL White Blood Count 21.5 H 4.4-10.8 10^3/uL Red Blood Count 3.33 L 4.0-5.20 10^6/uL Hemoglobin 10.1 L 12.2-16.2 g/dL Hematocrit 30.2 #L 36.0-46.0 % Mean Corpuscular Volume 90.7 80.0-100.0 fL Mean Corpuscular Hemoglobin 30.2 28.0-32.0 pg Mean Corpuscular Hemoglobin Concent 33.3 32.0-36.0 g/dL Red Cell Distribution Width 14.8 H 11.8-14.3 % Platelet Count 359 140-450 10^3/uL Mean Platelet Volume 8.5 6.9-10.8 fL Neutrophils (%) (Auto) 83.3 H 37.0-80.0 % Lymphocytes (%) (Auto) 5.5 L 10.0-50.0 % Monocytes (%) (Auto) 9.0 0.0-12.0 % Eosinophils (%) (Auto) 2.0 0.0-7.0 % Basophils (%) (Auto) 0.2 0.0-2.0 % Neutrophils # (Auto) 17.9 H 1.6-8.6 10 ^3/uL Lymphocytes # (Auto) 1.2 0.4-5.4 10 ^3/uL Monocytes # (Auto) 1.9 H 0-1.3 10 ^3/uL Eosinophils # (Auto) 0.4 0-0.8 10 ^3/uL Basophils # (Auto) 0 0-0.2 10 ^3/uL Nucleated Red Blood Cells 0.0 % Sodium Level 135 L 136-145 mmol/L Potassium Level 3.6 3.5-5.1 mmol/L Chloride Level 103 98-107 mmol/L Carbon Dioxide Level 22 20-31 mmol/L Anion Gap 10 5-15 Blood Urea Nitrogen 14 9-23 mg/dL Creatinine 1.07 H 0.550-1.02 mg/dL Glomerular Filtration Rate Calc 55 >90 mL/min BUN/Creatinine Ratio 13.1 10.0-20.0 Serum Glucose 106 74-106 mg/dL Hemoglobin A1c 5.5 <5.7 % A1C Calcium Level 8.6 L 8.7-10.4 mg/dL Total Bilirubin 0.6 0.2-1.0 mg/dL Aspartate Amino Transferase (AST) 30 13-40 U/L Alanine Aminotransferase (ALT) 63 H 7-40 U/L Alkaline Phosphatase 138 H 46-116 U/L Total Protein 5.6 L 5.7-8.2 g/dL Albumin 3.2 3.2-4.8 g/dL Vitamin B12 Level 313 211-911 pg/mL Vitamin D 25-Hydroxy 48.6 30.0-100 ng/mL Thyroid Stimulating Hormone (TSH) 0.74 0.55-4.78 uIU/mL Lactic Acid Level 0.7 0.4-2.0 mmol/L Troponin I High Sensitivity 307 *H </=34 ng/L Test 05/09/24 21:14 05/09/24 20:14 05/09/24 18:24 Range/Units Urine Color [place] H Yellow Urine Clarity Turbid H Clear Urine pH 6.0 5.0-9.0 Urine Specific [place] 1.024 1.001-1.035 Urine Protein 3+ H Negative Urine Ketones Trace Negative Urine Blood 1+ H Negative /uL Urine Nitrite Negative Negative Urine Bilirubin 1+ H Negative Urine Urobilinogen 3 H Negative mg/dL Urine Leukocyte Esterase 3+ Negative /uL Urine RBC 4 0 - 4 /hpf Urine WBC 316 0 - 5 /hpf Urine Squamous Epithelial Cells Few <5 /hpf Urine Bacteria None seen None Seen /hpf Urine Hyaline Casts Mod 0 - 2 /lpf Urine Granular Casts Few 0 /lpf Urine Mucus Moderate None Seen Urine Glucose Normal Normal mg/dL Prothrombin Time 12.1 H 9.3-11.8 sec Prothrombin Time INR 1.15 0.9-1.15 Activated Partial Thromboplast Time 28.3 24.5-34.5 SEC B-Type Natriuretic Peptide 722.28 0-100 pg/mL Lipase 29 12-53 U/L POC Glucose 123 H 70-106 mg/dl Imaging: CT abdomen pelvis IMPRESSION: 1. Diverticulitis with air in the retroperitoneum. No findings to suggest abscess at this time. 2. Cholelithiasis 3. Small hiatal hernia. Assessment: Acute diverticulitis Abdominal pain Diarrhea Plan: Discussed with Dr. Dumont Strict NPO IVF IV antibiotic Surgical consult Stool for stool culture and C diff Discussed plan with patient, family at bedside and RN Thank you for this consult Date of Service: May 10, 2024 Billing Provider: WILLIAN CARR Common Visit Codes: CONSULT ONLY Consultation Codes: [id number] CONSULT <60MIN WILLIAN CARR May 10, 2024 13:02
[2024-05-10] MEDS: SODIUM CHLORIDE 0.9% 1,000 ML IV SCH (14:33)
[2024-05-10 14:38] LABS: Hepatitis B Surface Antigen Negative (Negative)
[2024-05-10 14:59] LABS: Hepatitis C Antibody Negative (Negative)
[2024-05-10] MEDS: IOHEXOL 350 MG/ML 100ML IJ ONE (17:25)
[2024-05-10] MEDS: HYDROcodone-ACET 5/325MG TAB PO PRN (20:32)
[2024-05-10] MEDS: ATORVASTATIN 20 MG TAB PO SCH (21:37)
--- NOTE | 2024-05-10 22:33 | DVHINCON2 ---
Date of service: May 10, [address] Rob Covington Reason for Consultation Transfer of care. 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 Patient endorses having abdominal day for the past four days associated with nausea and diarrhea for the past two days. No fever or chills. While in ED, Chest x-ray reported no acute cardiopulmonary disease. CT Abdomen Pelvis without contrast reported diverticulitis with air in the retroperitoneum; no findings to suggest abscess at this time; cholelithiasis; small bilateral hernia. Initial Troponin was elevated and downtrended with latest result 307. EKG showed A-Fib with RVR of unknown time. WBC this AM is elevated at 21.5. Hgb 10.1. Na is 135. Patient's care was transferred to my services today. Patient continues with abdominal pain. No nausea and vomiting. Currently NPO due to CT findings. Family History: Hypertension G8 MOTHER, , Age: 99 Allergies: Coded Allergies: NO KNOWN ALLERGIES (Unverified , 05/09/24) Home Meds Reported Medications Ascorbic Acid (VITAMIN C TABLET) 500 Mg Tb, PO, TAB 05/10/24 Vitamin A (Synthetic) (Vitamin A) 1 Pow Pow, 1 XX, POW 05/10/24 Cholecalciferol (VITAMIN D3) 2,000 Unit Tab, PO, TAB 05/10/24 [place]-3 Fatty Acids ([place]-3) 1,400 Mg Cap, PO, CAP 05/10/24 Levothyroxine Sodium (Levothyroxine Sodium) 125 Mcg Tab, 125 MCG PO QAM for 30 Days, MCG 05/10/24 Lisinopril (Lisinopril) 40 Mg Tab, 40 MG PO DAILY for 30 Days, MG 05/10/24 Atenolol (Atenolol) 25 Mg Tab, 25 MG PO BID for 30 Days, MG 05/10/24 Current Medications Current Medications Medications (Trade) Dose Ordered Sig/Lanette Route PRN Reason Start Time Stop Time Status Last Admin Ceftriaxone Sodium 50 ml @ 100 mls/hr DAILY@09 IV 05/10/24 09:00 05/10/24 09:24 Metronidazole 100 ml @ 100 mls/hr Q8HR IV 05/10/24 06:00 05/10/24 21:38 Aspirin 81 mg DAILY PO 05/10/24 10:00 05/10/24 11:05 DC Atenolol (Tenormin Tablet) 25 mg BID PO 05/10/24 10:00 05/10/24 21:38 Levothyroxine Sodium (Synthroid Tablet) 125 mcg QAM@0600 PO 05/10/24 06:00 05/10/24 05:15 Lisinopril (Zestril Tablet) 40 mg DAILY PO 05/10/24 10:00 Atorvastatin Calcium (Lipitor) 40 mg HS PO 05/10/24 22:00 05/10/24 21:37 Acetaminophen/ Hydrocodone Bitart ([place] 5/325MG Tab) 1 tab Q4HP PRN PO MODERATE PAIN (4-6 PAIN SCALE) 05/09/24 23:00 05/10/24 20:32 Ondansetron HCl (Zofran) 4 mg Q4HP PRN IV NAUSEA / VOMITING 05/09/24 23:00 Hold Acetaminophen (Tylenol Tablet) 650 mg Q6HP PRN PO PAIN SCALE 1-3 OR TEMP>100.4 05/09/24 23:00 05/10/24 09:30 Morphine Sulfate 2 mg Q6HPRN PRN IV SEVERE PAIN (7-10 PAIN SCALE) 05/09/24 23:00 Nitroglycerin (Ntrostat Sublingual) 0.4 mg Q5MINP PRN SL FOR CHEST PAIN 05/09/24 23:00 Morphine Sulfate 2 mg Q30M PRN IV FOR CHEST PAIN 05/09/24 23:00 Enoxaparin Sodium (Lovenox) 130 mg Q12HR SC 05/10/24 10:00 UNV Enoxaparin Sodium (Lovenox) 130 mg BID SC 05/10/24 10:00 05/10/24 11:05 DC Sodium Chloride 1,000 ml @ 100 mls/hr Q10H IV 05/10/24 13:15 05/10/24 14:33 Review of Systems Constitutional: no fever, chill, weight loss HEENT: no eye pain, no hearing loss, no oral lesion, no scleral icterus Heart: no chest pain, no chest pressure Lung: no cough, no dyspnea with exertion Abdomen: see HPI All other systems reviewed and negative unless otherwise noted in HPI. Vital Signs Vital Signs Date Time Temp Pulse Resp B/P (MAP) Pulse Ox O2 Delivery O2 Flow Rate FiO2 05/10/24 21:38 107 143/67 05/10/24 12:22 98.7 20 91 98.7 05/10/24 08:30 Room Air* 0 21 Physical Exam Physical exam: Vitals and nursing notes reviewed. General: In no acute distress, morbidly obese. HEENT: Normocephalic atraumatic, mucous membranes moist and pink. Neck: Cervical and supraclavicular nodes normal without enlargement. Pulmonary: Clear to auscultation and percussion bilaterally. Cardiac: Regular rate and rhythm. No murmur. Abdomen: Soft, lower abdominal pain, nondistended, bowel sounds present all 4 quadrants, no guarding. Extremities: No cyanosis, clubbing, no edema. Neuro: Cranial nerves II through XII grossly intact, normal affect and speech, no focal motor deficits. Skin: Warm, dry, normal color and texture, no rash. Labs/Diagnostic Data Labs Test 05/10/24 05:35 05/10/24 05:25 05/09/24 23:42 05/09/24 23:20 Range/Units Phosphorus Level 3.7 2.4-5.1 mg/dL Magnesium Level 1.7 1.6-2.6 mg/dL White Blood Count 21.5 H 4.4-10.8 10^3/uL Red Blood Count 3.33 L 4.0-5.20 10^6/uL Hemoglobin 10.1 L 12.2-16.2 g/dL Hematocrit 30.2 #L 36.0-46.0 % Mean Corpuscular Volume 90.7 80.0-100.0 fL Mean Corpuscular Hemoglobin 30.2 28.0-32.0 pg Mean Corpuscular Hemoglobin Concent 33.3 32.0-36.0 g/dL Red Cell Distribution Width 14.8 H 11.8-14.3 % Platelet Count 359 140-450 10^3/uL Mean Platelet Volume 8.5 6.9-10.8 fL Neutrophils (%) (Auto) 83.3 H 37.0-80.0 % Lymphocytes (%) (Auto) 5.5 L 10.0-50.0 % Monocytes (%) (Auto) 9.0 0.0-12.0 % Eosinophils (%) (Auto) 2.0 0.0-7.0 % Basophils (%) (Auto) 0.2 0.0-2.0 % Neutrophils # (Auto) 17.9 H 1.6-8.6 10 ^3/uL Lymphocytes # (Auto) 1.2 0.4-5.4 10 ^3/uL Monocytes # (Auto) 1.9 H 0-1.3 10 ^3/uL Eosinophils # (Auto) 0.4 0-0.8 10 ^3/uL Basophils # (Auto) 0 0-0.2 10 ^3/uL Nucleated Red Blood Cells 0.0 % Sodium Level 135 L 136-145 mmol/L Potassium Level 3.6 3.5-5.1 mmol/L Chloride Level 103 98-107 mmol/L Carbon Dioxide Level 22 20-31 mmol/L Anion Gap 10 5-15 Blood Urea Nitrogen 14 9-23 mg/dL Creatinine 1.07 H 0.550-1.02 mg/dL Glomerular Filtration Rate Calc 55 >90 mL/min BUN/Creatinine Ratio 13.1 10.0-20.0 Serum Glucose 106 74-106 mg/dL Hemoglobin A1c 5.5 <5.7 % A1C Calcium Level 8.6 L 8.7-10.4 mg/dL Total Bilirubin 0.6 0.2-1.0 mg/dL Aspartate Amino Transferase (AST) 30 13-40 U/L Alanine Aminotransferase (ALT) 63 H 7-40 U/L Alkaline Phosphatase 138 H 46-116 U/L Lactate Dehydrogenase 249 H 120-246 U/L Total Protein 5.6 L 5.7-8.2 g/dL Albumin 3.2 3.2-4.8 g/dL Vitamin B12 Level 313 211-911 pg/mL Vitamin D 25-Hydroxy 48.6 30.0-100 ng/mL Thyroid Stimulating Hormone (TSH) 0.74 0.55-4.78 uIU/mL Hepatitis B Surface Antigen Negative Negative Hepatitis C Antibody Negative Negative Lactic Acid Level 0.7 0.4-2.0 mmol/L Troponin I High Sensitivity 307 *H </=34 ng/L Test 05/09/24 21:14 05/09/24 20:14 05/09/24 18:24 Range/Units Urine Color [place] H Yellow Urine Clarity Turbid H Clear Urine pH 6.0 5.0-9.0 Urine Specific [place] 1.024 1.001-1.035 Urine Protein 3+ H Negative Urine Ketones Trace Negative Urine Blood 1+ H Negative /uL Urine Nitrite Negative Negative Urine Bilirubin 1+ H Negative Urine Urobilinogen 3 H Negative mg/dL Urine Leukocyte Esterase 3+ Negative /uL Urine RBC 4 0 - 4 /hpf Urine WBC 316 0 - 5 /hpf Urine Squamous Epithelial Cells Few <5 /hpf Urine Bacteria None seen None Seen /hpf Urine Hyaline Casts Mod 0 - 2 /lpf Urine Granular Casts Few 0 /lpf Urine Mucus Moderate None Seen Urine Glucose Normal Normal mg/dL Prothrombin Time 12.1 H 9.3-11.8 sec Prothrombin Time INR 1.15 0.9-1.15 Activated Partial Thromboplast Time 28.3 24.5-34.5 SEC B-Type Natriuretic Peptide 722.28 0-100 pg/mL Lipase 29 12-53 U/L POC Glucose 123 H 70-106 mg/dl Assessment Acute diverticulitis Acute abdominal pain Elevated troponin Hypokalemia UTI Morbid obesity Plan/Recommendation Continue current supportive medical care. GI and Cardiology consults. IV antibiotics with Rocephin and Flagyl. Monitor daily labs; electrolyte replacement prn. Reconcile and resume home medications. Diet: NPO. Pain management prn. Additional plan as per the hospital course. Plan discussed with: Patient, Other (RN) SMITHA MCFARLANE DO May 10, 2024 22:33
[2024-05-11] VITALS (9 sets, daily range): BP systolic 110–126; BP diastolic 31–48; PULSE 88–137; RESP 18–20; TEMP 97.8–99.3; O2SAT 91–97
--- NOTE | 2024-05-11 08:38 | DVHPNRES ---
Progress Note Date Seen: May 11, 2024 Resident Creating Document: NANETTE CRAFT RESIDENT Medical Necessity Reason Pt with a Central, PICC or Fol: No Subjective Review of Systems Vane Reyna is a 73-year-old female patient who presents to the ED with constant, oppressive lower abdominal pain which started on 05/06/2024) associated with fever, chills constipation anuria which lasted 48 hours, and then presented diarrhea, prompting her visit to the ED. denies palpitation, syncope, chest pain, dyspnea, nausea, vomiting, bloody stool, any other kind of bleeding, recent travel, sick contacts, dysuria and motor or sensory deficits. 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 Surgical history: in two opportunities, three eye surgeries (cataracts and retinal detachment) Family history: Noncontributory Social history: Lives in [place] with . Denies tobacco, alcohol and other drug abuse Allergies: Seasonal Home medication: Vitamin ACD, atenolol 25 mg p.o. b.i.d., lisinopril 40 mg p.o. daily, levothyroxine 125 mcg p.o. daily, [place] three. Patient seen and examined at bedside. Currently continues with abdominal pain. Continues NPO Objective vital signs Vital Sign Date Time Temp Pulse Resp B/P (MAP) Pulse Ox O2 Delivery O2 Flow Rate FiO2 05/11/24 05:00 97.8 88 20 111/37 (61) 96 97.8 05/10/24 20:00 Nasal Cannula* 2 28 Total Intake and Output 05/10/24 05/10/24 05/11/24 15:00 23:00 07:00 Intake Total 100 ml 850 ml Balance 100 ml 850 ml medications Current Medications Medications Dose Ordered Sig/Lanette Route Start Time Stop Time Status Last Admin Dose Admin Ceftriaxone Sodium 50 ml @ 100 mls/hr DAILY@09 IV 05/10/24 09:00 05/10/24 09:24 100 MLS/HR Metronidazole 100 ml @ 100 mls/hr Q8HR IV 05/10/24 06:00 05/11/24 05:34 100 MLS/HR Atenolol 25 mg BID PO 05/10/24 10:00 Hold 05/10/24 21:38 25 MG Levothyroxine Sodium 125 mcg QAM@0600 PO 05/10/24 06:00 05/11/24 05:35 125 MCG Lisinopril 40 mg DAILY PO 05/10/24 10:00 Hold Atorvastatin Calcium 40 mg HS PO 05/10/24 22:00 05/10/24 21:37 40 MG Acetaminophen/ Hydrocodone Bitart 1 tab Q4HP PRN PO 05/09/24 23:00 05/11/24 06:34 1 TAB Ondansetron HCl 4 mg Q4HP PRN IV 05/09/24 23:00 Hold Acetaminophen 650 mg Q6HP PRN PO 05/09/24 23:00 05/10/24 09:30 650 MG Morphine Sulfate 2 mg Q6HPRN PRN IV 05/09/24 23:00 Nitroglycerin 0.4 mg Q5MINP PRN SL 05/09/24 23:00 Morphine Sulfate 2 mg Q30M PRN IV 05/09/24 23:00 Enoxaparin Sodium 130 mg Q12HR SC 05/10/24 10:00 UNV Sodium Chloride 1,000 ml @ 100 mls/hr Q10H IV 05/10/24 13:15 05/10/24 14:33 100 MLS/HR Pantoprazole Sodium 40 mg DAILY IV 05/11/24 10:00 UNV Examination Patient lying in bed, in no acute distress General: Lucid, afebrile, mucosae are moist Cardiovascular: Variable S1 and S2, tachycardic. No murmurs, gallops or rubs Respiratory: Normal ventilation mechanics. Clear lung sounds on auscultation Abdomen: Distended, predominant, diffuse tenderness on superficial palpation, no organomegaly, reduced bowel sounds MSK/skin: Mobilizes 4 limbs. Skin is dry and warm Neurological: Oriented in 3 spheres. No motor no sensitive deficits. Pupils are isocoric and reactive laboratory and microbiology Laboratory Tests 05/10/24 05:25 Test 05/10/24 05:25 Range/Units Serum Glucose 106 74-106 mg/dL Problem List/Assessment/Plan Problem List/Assessment/Plan Assessment NSTEMI probable type 2 secondary to sepsis Atrial fibrillation RVR of unknown duration (chads Vasc 3 / has bled 0) secondary hypercoagulability state Ruled out mesenteric ischemia secondary to AFib Sepsis secondary to ruptured diverticulitis Cholelithiasis Hypertension Hypothyroidism Morbid obesity Plan/Recommendation Most likely cause of elevated troponin is sepsis due to ruptured diverticulitis. Called surgeon (Dr Gianni Dumont), who recommended IR consult for evaluation of drainage. Patient's EKG shows AFib RVR of unknown time, we will indicate rate control at this time, no cardioversion. Have hold enoxaparin since patient may need urgent surgery. Consulted surgery, patient is currently NPO Ordered echocardiogram, pending Ordered abdominal CT with contrast which ruled out acute mesenteric ischemia, evidenced ruptured diverticulitis Appreciate GI and Surgical evaluation Discussed case with Dr. Cho, patient, family and nurses: NSTEMI probably secondary to sepsis due to perforated diverticulitis. Diagnosed AFib RVR of unknown time, have hold enoxaparin at this time since unclear if patient will require surgery. Suggest ruling out mesenteric ischemia. Pending echocardiogram, which can be done in a nonurgent manner. No further cardiological workup needed during this admission. Have consulted compliance professional and interventional radiologist at this time. We will sign off the case. Please reconsult if needed, thank you. Plan discussed with: Patient, Son, Other (Nurses) My Orders My Orders Orders - NANETTE CRAFT Procedure Category Date Status Time Npo (Nothing By DIET 05/10/24 Transmitted Mouth) Diet Lunch Sodium Chloride 0.9% PHA 05/10/24 In Process 13:15 * Surgical Consult CONS 05/10/24 Transmitted 13:33 Ct Ab Pel With Iv Con CT 05/11/24 Logged Only 08:00 Phosphorus LAB 05/11/24 Logged 08:29 Magnesium LAB 05/11/24 Logged 08:29 Comprehensive LAB 05/11/24 Logged Metabolic Panel 08:29 Complete Blood Count LAB 05/11/24 Logged 08:29 Lactate Dehydrogenase LAB 05/11/24 Logged 08:29 Pantoprazole PHA 05/11/24 Logged (Protonix) 10:00 Visit Coding Cardiology RES Date of Service: May 11, 2024 Billing Provider: YESSICA CHO MD Cardiology Common Codes: [id number](High, [id number] CARE 30-74 MIN NANETTE CRAFT RESIDENT May 11, 2024 08:38
--- NOTE | 2024-05-11 09:00 | DVH ---
Exam: CT CT AB PEL WITH IV CON ONLY History: MENSENTARIC ISCHEMIA Comparison Study: TECHNIQUE: A digital hosiery knitter image was obtained. During the uneventful, intravenous administration of c ontrast material, multislice data acquisition was obtained through the abdomen and pelvis. The data s et was subsequently reconstructed into axial images. Images were reviewed on a work station using a c ombination of axial and multiplanar using a variety of window levels and settings. 100 cc of Omnipaqu e 300 contrast was injected intravenously. All CT scans at this medical facility are performed using dose modulation techniques as appropriate t o a performed exam including the following:Automated exposure control was utilized; adjustment of the MA and/or KV according to patient size; and use of iterative reconstruction technique. Radiation Dose Information: CT Dose: CTDI volume is 27.74 mGy. Dose-length product is 1441.83 mGy*cm FINDINGS: There is moderate fat stranding and induration in the central mesentery. There is an approximately 6. 5 x 6.2 cm collection within the mesentery containing air and minimal fluid. The sigmoid colon trave rses adjacent to this collection and contains diverticula. There are no dilated small or large bowel loops or evidence of bowel obstruction. There is a small to moderate size hiatal hernia. There are gallstones within the gallbladder. There i s mild fatty infiltration of the liver. The pancreas, kidneys, adrenal glands, and spleen appear within normal limits. There is no evidence of abdominal lymphadenopathy. There is no free fluid or free air. The abdominal aorta and IVC appear within normal limits. The bladder appears within normal limits the degree of distention. Pelvic organs is unremarkable. The re is no evidence of a pelvic mass or lymphadenopathy. There is no free fluid collection. Lung bases are clear. There is no acute osseous abnormality. IMPRESSION: 1. Moderate fat stranding and induration in the central mesentery. There is an approximately 6.5 x 6. 2 cm collection containing air and minimal fluid. The sigmoid colon traverses adjacent to this collec tion contains diverticula. Findings likely represent acute diverticulitis with rupture. 2. Small to moderate size hiatal hernia. 3. Cholelithiasis. 4. Mild fatty infiltration of the liver. HS:Y
--- NOTE | 2024-05-11 09:55 | DVH ---
Procedure: NM NM HIDA SCAN Exam Date: 05/10/2024 03:05 PM Clinical History: Cholecystitis Comparison Study: CT dated 05/11/2024 Nuclear Medicine Hepatobiliary Scan. Technique: Following the intravenous administration of 6 mCi of technetium 99m labeled Choletec multiple planar abdominal planar images were obtained in anterior projection in 5 minute intervals for60 minutes . Ri ght lateral images were obtained at 60 minutes after injection. Findings: The liver appears grossly normal in size. There is no abnormal persistence of the cardiac or blood po ol activity. There is non visualization of the gallbladder and there is excretion of activity into th e small bowel. Impression: Nonvisualization of the gallbladder suggestive of cystic duct obstruction.
[2024-05-11] MEDS: PANTOPRAZOLE 40 MG/10 ML VIAL INJ IV SCH (10:01)
[2024-05-11] MEDS: IOHEXOL 300 MG/ML 100ML BOTTLE IJ ONE (10:01)
[2024-05-11 11:59] LABS: Alanine Aminotransferase 52 U/L (7-40); Albumin 3.4 g/dL (3.2-4.8); Alkaline Phosphatase 134 U/L (46-116); Anion Gap 6 (5-15); Aspartate Aminotransferase 27 U/L (13-40); BUN/Creatinine Ratio 14.4 (10.0-20.0); Blood Urea Nitrogen 15 mg/dL (9-23); Calcium 8.7 mg/dL (8.7-10.4); Carbon Dioxide 24 mmol/L (20-31); Chloride 103 mmol/L (98-107); Glucose 86 mg/dL (74-106); Magnesium 1.7 mg/dL (1.6-2.6); Potassium 3.7 mmol/L (3.5-5.1); Sodium 133 mmol/L (136-145)
[2024-05-11 12:00] LABS: Bilirubin, Total 0.5 mg/dL (0.2-1.0); Phosphorus 3.8 mg/dL (2.4-5.1); Total Protein 5.6 g/dL (5.7-8.2)
[2024-05-11 12:03] LABS: Basophils # (auto) 0.1 10 ^3/uL (0-0.2); Basophils % (auto) 0.6 % (0.0-2.0); Eosinophils # (auto) 0.4 10 ^3/uL (0-0.8); Eosinophils % (auto) 2.8 % (0.0-7.0); Hematocrit 29.2 % (36.0-46.0); Hemoglobin 9.7 g/dL (12.2-16.2); Lymphocytes % (auto) 6.5 % (10.0-50.0); Mean Corpuscular Hemoglobin 30.4 pg (28.0-32.0); Mean Corpuscular Hgb Conc. 33.2 g/dL (32.0-36.0); Mean Corpuscular Volume 91.4 fL (80.0-100.0); Monocytes # (auto) 1.5 10 ^3/uL (0-1.3); Monocytes % (auto) 10.2 % (0.0-12.0); Neutrophils % (auto) 79.9 % (37.0-80.0); Platelet Count (auto) 376 10^3/uL (140-450); Red Blood Cells 3.19 10^6/uL (4.0-5.20); Red Cell Distribution Width 15.3 % (11.8-14.3)
--- NOTE | 2024-05-11 14:38 | DVHINCON2 ---
Date of service: May 11, 2024 Family History: Hypertension G8 MOTHER, , Age: 99 Allergies: Coded Allergies: NO KNOWN ALLERGIES (Unverified , 05/09/24) Home Meds Reported Medications Ascorbic Acid (VITAMIN C TABLET) 500 Mg Tb, PO, TAB 05/10/24 Vitamin A (Synthetic) (Vitamin A) 1 Pow Pow, 1 XX, POW 05/10/24 Cholecalciferol (VITAMIN D3) 2,000 Unit Tab, PO, TAB 05/10/24 [place]-3 Fatty Acids ([place]-3) 1,400 Mg Cap, PO, CAP 05/10/24 Levothyroxine Sodium (Levothyroxine Sodium) 125 Mcg Tab, 125 MCG PO QAM for 30 Days, MCG 05/10/24 Lisinopril (Lisinopril) 40 Mg Tab, 40 MG PO DAILY for 30 Days, MG 05/10/24 Atenolol (Atenolol) 25 Mg Tab, 25 MG PO BID for 30 Days, MG 05/10/24 Current Medications Current Medications Medications (Trade) Dose Ordered Sig/Lanette Route PRN Reason Start Time Stop Time Status Last Admin Atorvastatin Calcium (Lipitor) 40 mg HS PO 05/10/24 22:00 05/10/24 21:37 Pantoprazole Sodium (Protonix) 40 mg DAILY IV 05/11/24 10:00 05/11/24 10:01 Vital Signs Vital Signs Date Time Temp Pulse Resp B/P (MAP) Pulse Ox O2 Delivery O2 Flow Rate FiO2 05/11/24 10:42 96 05/11/24 08:00 99.3 19 110/37 (61) 94 99.3 05/10/24 20:00 Nasal Cannula* 2 28 Labs/Diagnostic Data Labs Test 05/11/24 10:52 05/10/24 05:25 05/09/24 23:42 05/09/24 23:20 Range/Units White Blood Count 15.0 #H 4.4-10.8 10^3/uL Red Blood Count 3.19 L 4.0-5.20 10^6/uL Hemoglobin 9.7 L 12.2-16.2 g/dL Hematocrit 29.2 L 36.0-46.0 % Mean Corpuscular Volume 91.4 80.0-100.0 fL Mean Corpuscular Hemoglobin 30.4 28.0-32.0 pg Mean Corpuscular Hemoglobin Concent 33.2 32.0-36.0 g/dL Red Cell Distribution Width 15.3 H 11.8-14.3 % Platelet Count 376 140-450 10^3/uL Mean Platelet Volume 8.4 6.9-10.8 fL Neutrophils (%) (Auto) 79.9 37.0-80.0 % Lymphocytes (%) (Auto) 6.5 L 10.0-50.0 % Monocytes (%) (Auto) 10.2 0.0-12.0 % Eosinophils (%) (Auto) 2.8 0.0-7.0 % Basophils (%) (Auto) 0.6 0.0-2.0 % Neutrophils # (Auto) 12.0 H 1.6-8.6 10 ^3/uL Lymphocytes # (Auto) 1.0 0.4-5.4 10 ^3/uL Monocytes # (Auto) 1.5 H 0-1.3 10 ^3/uL Eosinophils # (Auto) 0.4 0-0.8 10 ^3/uL Basophils # (Auto) 0.1 0-0.2 10 ^3/uL Nucleated Red Blood Cells 0.0 % Sodium Level 133 L 136-145 mmol/L Potassium Level 3.7 3.5-5.1 mmol/L Chloride Level 103 98-107 mmol/L Carbon Dioxide Level 24 20-31 mmol/L Anion Gap 6 5-15 Blood Urea Nitrogen 15 9-23 mg/dL Creatinine 1.04 H 0.550-1.02 mg/dL Glomerular Filtration Rate Calc 56 >90 mL/min BUN/Creatinine Ratio 14.4 10.0-20.0 Serum Glucose 86 74-106 mg/dL Calcium Level 8.7 8.7-10.4 mg/dL Phosphorus Level 3.8 2.4-5.1 mg/dL Magnesium Level 1.7 1.6-2.6 mg/dL Total Bilirubin 0.5 0.2-1.0 mg/dL Aspartate Amino Transferase (AST) 27 13-40 U/L Alanine Aminotransferase (ALT) 52 H 7-40 U/L Alkaline Phosphatase 134 H 46-116 U/L Lactate Dehydrogenase 296 H 120-246 U/L Total Protein 5.6 L 5.7-8.2 g/dL Albumin 3.4 3.2-4.8 g/dL Hemoglobin A1c 5.5 <5.7 % A1C Vitamin B12 Level 313 211-911 pg/mL Vitamin D 25-Hydroxy 48.6 30.0-100 ng/mL Thyroid Stimulating Hormone (TSH) 0.74 0.55-4.78 uIU/mL Hepatitis B Surface Antigen Negative Negative Hepatitis C Antibody Negative Negative Lactic Acid Level 0.7 0.4-2.0 mmol/L Troponin I High Sensitivity 307 *H </=34 ng/L Test 05/09/24 21:14 05/09/24 20:14 05/09/24 18:24 Range/Units Urine Color [place] H Yellow Urine Clarity Turbid H Clear Urine pH 6.0 5.0-9.0 Urine Specific [place] 1.024 1.001-1.035 Urine Protein 3+ H Negative Urine Ketones Trace Negative Urine Blood 1+ H Negative /uL Urine Nitrite Negative Negative Urine Bilirubin 1+ H Negative Urine Urobilinogen 3 H Negative mg/dL Urine Leukocyte Esterase 3+ Negative /uL Urine RBC 4 0 - 4 /hpf Urine WBC 316 0 - 5 /hpf Urine Squamous Epithelial Cells Few <5 /hpf Urine Bacteria None seen None Seen /hpf Urine Hyaline Casts Mod 0 - 2 /lpf Urine Granular Casts Few 0 /lpf Urine Mucus Moderate None Seen Urine Glucose Normal Normal mg/dL Prothrombin Time 12.1 H 9.3-11.8 sec Prothrombin Time INR 1.15 0.9-1.15 Activated Partial Thromboplast Time 28.3 24.5-34.5 SEC B-Type Natriuretic Peptide 722.28 0-100 pg/mL Lipase 29 12-53 U/L POC Glucose 123 H 70-106 mg/dl Microbiology Date/Time Source Procedure Growth Status 05/09/24 21:14 Voided Urine Urine Culture - Preliminary Resulted Assessment [id number] R/O AC DIVERTICULITIS POSSIBLE CONTAINED PERFORATION AFEBRILE VSS ABD SOFT MORBID OBESITY DIFFICULT EVAL NO REBOUND CLOSE OBSERVATION KEEP NPO IV ABX IR EVAL FOR POSSIBLE DRAINAGE HIGH RISK FOR SURGERY CARDIAC EVAL ONGOING CONSIDER EMEREGENT SURGERY BASED ON ONGOING EVAL Plan discussed with: Patient CATALINO DEMPSEY MD May 11, 2024 14:38
--- NOTE | 2024-05-11 15:56 | DVHSR ---
APPROVED REPORT EXAM: Two-dimensional and M-mode echocardiogram with Doppler and color Doppler. Blood Pressure: 111/37 mmHg INDICATION EF RISK FACTORS Obesity: Height: 5'4", Weight: 282 DIMENSIONS LVDd3.6 (3.8-5.7cm)LA (2D) (1.9-4.0cm)Aortic Root3.3 (2.0-3.7cm) LVDs2.5 (2.5-4.0cm)LA (MM) (1.9-4.0cm)Aortic Cusp Exc1.6 (1.5-2.0cm) EF (%) 60.0 (55-70%)Rt. Atrium (1.9-4.0cm)Asc. Aorta cm IVSd1.3 (0.7-1.1cm)RV (D) (1.8-2.4cm) PWd1.4 (0.7-1.1cm) Mitral Valve MitralMitral Stenosis E/A ratio0.02D MVAcm2 Aortic Valve Aortic ValveAortic Stenosis V11.31m/Benjamin Mean GR.5mmHg V21.42m/Benjamin Peak GR.8mmHg LVOT Diameter2.1 (1.8-2.4cm)Doppler AVA3.19cm2 Pulmonic Valve V21.11m/s Tricuspid Valve TR Velocity4.06m/s [id number] Other Information Quality : LimitedRhythm : Technically limited study due to body habitus. Conclusion Normal left ventricular size and dimension. Normal left ventricular systolic function estimated ejec tion fraction 55%. There is a grade 1 diastolic dysfunction. Normal right ventricular systolic and dimension. Normal right ventricular systolic function. Severe ly elevated right ventricular systolic pressure 70 mm of mercury. Mildly dilated right and left atria. Normal aortic valve structure and function. Normal mitral valve structure and function. Normal tricuspid valve structure and function. The pulmonary valve is grossly normal. No pericardial effusion.
--- NOTE | 2024-05-11 17:49 | DVHINCON2 ---
DATE OF CONSULTATION: 05/11/2024 HISTORY OF PRESENT ILLNESS: This patient is 73 years old, coming in with abdominal pain. She had this problem may be a several years ago, but not as bad. Some nausea, no vomiting. No constipation. She does have diarrhea. No hematemesis or melena. No bleeding per rectum. PAST MEDICAL HISTORY: Hypertension. PAST SURGICAL HISTORY: . PHYSICAL EXAMINATION: VITAL SIGNS: Afebrile, stable signs. HEENT: With no evidence of pallor, cyanosis, or jaundice. NECK: Supple, nontender with no thyromegaly, lymphadenopathy. CHEST AND LUNGS: Clear. HEART: Within normal limits. ABDOMEN: Soft. She is morbidly obese, difficult to evaluate, but she is tender in the left lower quadrant. No rebound. EXTREMITIES: Unremarkable. NEUROLOGIC: Intact. CLINICAL IMPRESSION: Possible sigmoid diverticulitis complicated by possibly contained perforation. There may be some collection of fluid as per the CAT scan. PLAN: Will be is to keep her under close observation, keep her n.p.o., give intravenous antibiotics, managed conservatively with IR evaluation for possible drainage of the localized collection and should there be need for surgery, she will be needing cardiac clearance. She is high risk for surgery because of her obesity as well as cardiac issues. MD ALBERTO Juan TID: [id number] RECEIPT: [id number] cc: Rob Covington NP
--- NOTE | 2024-05-11 18:27 | DVHPN2 ---
Progress Note Date Seen: May 11, 2024 Resident Creating Document: BREANNA JAMES RESIDENT Medical Necessity Reason Pt with a Central, PICC or Fol: No Medical Necessity Reason This is a 73-year-old female who presented to the ED with complaints of constant lower abdominal pains, nausea with fever, chills constipation. Then follow by diarrhea. Patient denied palpitation, syncope, chest pain, dyspnea, nausea, vomiting, bloody stool, any other kind of bleeding, recent travel, sick contacts, dysuria and motor or sensory deficits. Patient had similar episode about [address] abdomen Diverticulitis with air in the retroperitoneum. No findings to suggest abscess at this time, Cholelithiasis' Small hiatal hernia. No colonoscopy in past. Subjective Review of Systems Constitutional: no fever, chill, weight loss HEENT: no eye pain, no hearing loss, no oral lesion, no scleral icterus Heart: no chest pain, no chest pressure Lung: no cough, no dyspnea with exertion Abdomen: Lower abdominal pain, Objective vital signs Vital Sign Date Time Temp Pulse Resp B/P (MAP) Pulse Ox O2 Delivery O2 Flow Rate FiO2 05/11/24 12:00 98.1 89 20 117/31 (59) 96 98.1 05/11/24 07:34 Room Air* 0 21 Total Intake and Output 05/10/24 05/10/24 05/11/24 15:00 23:00 07:00 Intake Total 100 ml 850 ml Balance 100 ml 850 ml medications Current Medications Medications Dose Ordered Sig/Lanette Route Start Time Stop Time Status Last Admin Dose Admin Ceftriaxone Sodium 50 ml @ 100 mls/hr DAILY@09 IV 05/10/24 09:00 05/11/24 10:01 100 MLS/HR Metronidazole 100 ml @ 100 mls/hr Q8HR IV 05/10/24 06:00 05/11/24 13:31 100 MLS/HR Atenolol 25 mg BID PO 05/10/24 10:00 Hold 05/10/24 21:38 25 MG Levothyroxine Sodium 125 mcg QAM@0600 PO 05/10/24 06:00 05/11/24 05:35 125 MCG Lisinopril 40 mg DAILY PO 05/10/24 10:00 Hold Atorvastatin Calcium 40 mg HS PO 05/10/24 22:00 05/10/24 21:37 40 MG Acetaminophen/ Hydrocodone Bitart 1 tab Q4HP PRN PO 05/09/24 23:00 05/11/24 13:49 1 TAB Ondansetron HCl 4 mg Q4HP PRN IV 05/09/24 23:00 Hold Acetaminophen 650 mg Q6HP PRN PO 05/09/24 23:00 05/10/24 09:30 650 MG Morphine Sulfate 2 mg Q6HPRN PRN IV 05/09/24 23:00 Nitroglycerin 0.4 mg Q5MINP PRN SL 05/09/24 23:00 Morphine Sulfate 2 mg Q30M PRN IV 05/09/24 23:00 Enoxaparin Sodium 130 mg Q12HR SC 05/10/24 10:00 UNV Sodium Chloride 1,000 ml @ 100 mls/hr Q10H IV 05/10/24 13:15 05/10/24 14:33 100 MLS/HR Pantoprazole Sodium 40 mg DAILY IV 05/11/24 10:00 05/11/24 10:01 40 MG Examination General examination-no acute distress lying comfortably in bed, morbidly obese female HEENT- PEERLA, no acute nasal discharge Heart S1-S2 audible, rate and rhythm regular, no murmur Lungs- CTAB, no wheeze or rhonchi Abdomen- distended, lower abdominal tenderness, bowel sound+ Musculoskeletal-no acute joint swelling or tenderness or redness Lower extremity- no leg edema Neurological- cranial nerves intact, no acute dysarthria or dysphagia Psychiatry- denies depression or SI or HI Skin- no acute rash or purpura laboratory and microbiology Laboratory Tests 05/11/24 10:52 Test 05/11/24 10:52 Range/Units Serum Glucose 86 74-106 mg/dL Microbiology Date/Time Source Procedure Growth Status 05/09/24 21:14 Voided Urine Urine Culture - Preliminary Resulted Problem List/Assessment/Plan Problem List/Assessment/Plan Possible sigmoid diverticulitis with possibly bowel perforation. Fluid collection CT scan. Abdominal pain Diarrhea --> Stool for stool culture and C diff: Pending Plan: Continue IV antibiotics Surgery: under close observation, keep her n.p.o., give intravenous antibiotics, managed conservatively with IR evaluation for possible drainage Outpatient follow up in consideration for colonoscopy Goal of care discussed for more than 19 minute: Full code Case and plan discussed with Dr. Dumont Plan discussed with: Patient Dietary Evaluation Review Comments: 1) Advance pt diet when medically feasible to a [id number] diet 2) Continue current plan of care Expected Outcomes/Goals: F/U in 3-5 days BREANNA JAMES RESIDENT May 11, 2024 18:27
--- NOTE | 2024-05-11 23:02 | DVHPN2 ---
Progress Note - Dictate Date Seen: May 11, 2024 Medical Necessity Reason Pt with a Central, PICC or Fol: No Subjective Patient was seen and evaluated in follow up. No acute events overnight. Patient complains of continued abdominal pain associated with nausea. No vomiting. Repeated CT Abdomen Pelvis today reported moderate fat stranding and induration in the central mesentery; there is an approximately 6.5 x 6.2 cm collection containing air and minimal fluid; the sigmoid colon traverses adjacent to this collection contains diverticula; findings likely represent acute diverticulitis with rupture; small to moderate size hiatal hernia; cholelithiasis; mild fatty infiltration of the liver. vital signs Vital Sign Date Time Temp Pulse Resp B/P (MAP) Pulse Ox O2 Delivery O2 Flow Rate FiO2 05/11/24 21:00 98.1 137 19 111/48 (69) 94 98.1 05/11/24 20:00 Nasal Cannula* 2 28 Total Intake and Output 05/10/24 05/10/24 05/11/24 15:00 23:00 07:00 Intake Total 100 ml 850 ml Balance 100 ml 850 ml medications Current Medications Medications Dose Ordered Sig/Lanette Route Start Time Stop Time Status Last Admin Dose Admin Ceftriaxone Sodium 50 ml @ 100 mls/hr DAILY@09 IV 05/10/24 09:00 05/11/24 10:01 100 MLS/HR Metronidazole 100 ml @ 100 mls/hr Q8HR IV 05/10/24 06:00 05/11/24 21:43 100 MLS/HR Atenolol 25 mg BID PO 05/10/24 10:00 Hold 05/10/24 21:38 25 MG Levothyroxine Sodium 125 mcg QAM@0600 PO 05/10/24 06:00 05/11/24 05:35 125 MCG Lisinopril 40 mg DAILY PO 05/10/24 10:00 Hold Atorvastatin Calcium 40 mg HS PO 05/10/24 22:00 05/11/24 21:43 40 MG Acetaminophen/ Hydrocodone Bitart 1 tab Q4HP PRN PO 05/09/24 23:00 05/11/24 19:59 1 TAB Ondansetron HCl 4 mg Q4HP PRN IV 05/09/24 23:00 Hold Acetaminophen 650 mg Q6HP PRN PO 05/09/24 23:00 05/10/24 09:30 650 MG Morphine Sulfate 2 mg Q6HPRN PRN IV 05/09/24 23:00 Nitroglycerin 0.4 mg Q5MINP PRN SL 05/09/24 23:00 Morphine Sulfate 2 mg Q30M PRN IV 05/09/24 23:00 Enoxaparin Sodium 130 mg Q12HR SC 05/10/24 10:00 UNV Sodium Chloride 1,000 ml @ 100 mls/hr Q10H IV 05/10/24 13:15 05/10/24 14:33 100 MLS/HR Pantoprazole Sodium 40 mg DAILY IV 05/11/24 10:00 05/11/24 10:01 40 MG objective Physical exam: Vitals and nursing notes reviewed. General: In no acute distress, morbidly obese. HEENT: Normocephalic atraumatic, mucous membranes moist and pink. Neck: Cervical and supraclavicular nodes normal without enlargement. Pulmonary: Clear to auscultation and percussion bilaterally. Cardiac: Regular rate and rhythm. No murmur. Abdomen: Soft, tender in the left lower quadrant, nondistended, bowel sounds present all 4 quadrants, no guarding. Extremities: No cyanosis, clubbing, no edema. Neuro: Cranial nerves II through XII grossly intact, normal affect and speech, no focal motor deficits. Skin: Warm, dry, normal color and texture, no rash. laboratory and microbiology Laboratory Tests 05/11/24 10:52 Test 05/11/24 10:52 Range/Units Serum Glucose 86 74-106 mg/dL Problem List Acute diverticulitis Acute abdominal pain Elevated troponin Hypokalemia UTI Morbid obesity Assessment/Plan Continue current supportive medical care. Surgical consult. Radiology consult to evaluate drainage, perforated diverticulitis. GI and Cardiology consulted. High risk for surgery. IV antibiotics with Ceftriaxone and Metronidazole. Monitor daily labs; electrolyte replacement prn. IVFs. Protonix 40 mg IV daily. Keep NPO. Pain management prn. DVT prophylaxis: Enoxaparin 130 mg SC q12h. Additional plan as per the hospital course. Dietary Evaluation Review Comments: 1) Advance pt diet when medically feasible to a [id number]/[id number] diet 2) Continue current plan of care Expected Outcomes/Goals: F/U in 3-5 days Plan discussed with: Patient, Other (RN) SMITHA MCFARLANE DO May 11, 2024:02
[2024-05-12] VITALS (9 sets, daily range): BP systolic 100–129; BP diastolic 44–56; PULSE 71–129; RESP 16–19; TEMP 97.2–98.6; O2SAT 91–98
--- NOTE | 2024-05-12 15:45 | DVHPN2 ---
Progress Note Date Seen: May 12, 2024 Medical Necessity Reason Pt with a Central, PICC or Fol: No Objective vital signs Vital Sign Date Time Temp Pulse Resp B/P (MAP) Pulse Ox O2 Delivery O2 Flow Rate FiO2 05/12/24 08:00 123 05/12/24 08:00 18 98 Room Air* 0 21 05/12/24 06:00 97.8 107/56 (73) 97.8 Total Intake and Output 05/11/24 05/11/24 05/12/24 15:00 23:00 07:00 Intake Total 1250 ml 100 ml 1100 ml Balance 1250 ml 100 ml 1100 ml medications Current Medications Medications Dose Ordered Sig/Lanette Route Start Time Stop Time Status Last Admin Dose Admin Ceftriaxone Sodium 50 ml @ 100 mls/hr DAILY@09 IV 05/10/24 09:00 05/12/24 09:29 100 MLS/HR Metronidazole 100 ml @ 100 mls/hr Q8HR IV 05/10/24 06:00 05/12/24 05:22 100 MLS/HR Atenolol 25 mg BID PO 05/10/24 10:00 Hold 05/10/24 21:38 25 MG Levothyroxine Sodium 125 mcg QAM@0600 PO 05/10/24 06:00 05/12/24 05:23 125 MCG Lisinopril 40 mg DAILY PO 05/10/24 10:00 Hold Atorvastatin Calcium 40 mg HS PO 05/10/24 22:00 05/11/24 21:43 40 MG Acetaminophen/ Hydrocodone Bitart 1 tab Q4HP PRN PO 05/09/24 23:00 05/12/24 09:29 1 TAB Ondansetron HCl 4 mg Q4HP PRN IV 05/09/24 23:00 Hold Acetaminophen 650 mg Q6HP PRN PO 05/09/24 23:00 05/10/24 09:30 650 MG Morphine Sulfate 2 mg Q6HPRN PRN IV 05/09/24 23:00 Nitroglycerin 0.4 mg Q5MINP PRN SL 05/09/24 23:00 Morphine Sulfate 2 mg Q30M PRN IV 05/09/24 23:00 Enoxaparin Sodium 130 mg Q12HR SC 05/10/24 10:00 UNV Sodium Chloride 1,000 ml @ 100 mls/hr Q10H IV 05/10/24 13:15 05/11/24 23:50 100 MLS/HR Pantoprazole Sodium 40 mg DAILY IV 05/11/24 10:00 05/12/24 09:29 40 MG laboratory and microbiology Laboratory Tests 05/11/24 10:52 Test 05/11/24 10:52 Range/Units Serum Glucose 86 74-106 mg/dL Microbiology Date/Time Source Procedure Growth Status 05/09/24 21:14 Voided Urine Urine Culture - Final Complete Problem List/Assessment/Plan Problem List/Assessment/Plan AFEBRILE VSS ABD SOFT TENDER NO REBOUND FLATUS + WBC DOWN CONTINUE CLOSE OBSERVATION ALLOW SIPS OF WATER Plan discussed with: Patient Dietary Evaluation Review Comments: 1) Advance pt diet when medically feasible to a [id number]/2gNa diet 2) Continue current plan of care Expected Outcomes/Goals: F/U in 3-5 days CATALINO DEMPSEY MD May 12, 2024 15:45
[2024-05-12] MEDS: SODIUM CHLORIDE 0.9% 1,000 ML IV ONE (15:49)
[2024-05-12] MEDS: AMIODARONE BOLUS KIT 100 ML IV ONE (18:05)
[2024-05-12] MEDS: AMIODARONE 450mg/250ml AE 250 ML IV SCH ×2 (18:26→22:54)
[2024-05-12] MEDS ORDERED: BACLOFEN 10 MG TAB PO PRN (19:15)
--- NOTE | 2024-05-12 19:17 | DVHPN2 ---
Progress Note Date Seen: May 12, 2024 Resident Creating Document: BREANNA JAMES RESIDENT Medical Necessity Reason Pt with a Central, PICC or Fol: No Medical Necessity Reason This is a 73-year-old female who presented to the ED with complaints of constant lower abdominal pains, nausea with fever, chills constipation. Then follow by diarrhea. Patient denied palpitation, syncope, chest pain, dyspnea, nausea, vomiting, bloody stool, any other kind of bleeding, recent travel, sick contacts, dysuria and motor or sensory deficits. Patient had similar episode about [address] abdomen Diverticulitis with air in the retroperitoneum. No findings to suggest abscess at this time, Cholelithiasis' Small hiatal hernia. No colonoscopy in past. Subjective Review of Systems Constitutional: Denies fever, chill, weight loss HEENT: Denies eye pain, no hearing loss, no oral lesion, no scleral icterus Heart: Denies chest pain, no chest pressure Lung: Denies cough, no dyspnea with exertion Abdomen: Lower abdominal pain Extremity: pain in the left lower extremity Objective vital signs Vital Sign Date Time Temp Pulse Resp B/P (MAP) Pulse Ox O2 Delivery O2 Flow Rate FiO2 05/12/24 17:00 97.2 104 16 129/44 (72) 91 97.2 05/12/24 08:00 Room Air* 0 21 Total Intake and Output 05/11/24 05/11/24 05/12/24 15:00 23:00 07:00 Intake Total 1250 ml 100 ml 1100 ml Balance 1250 ml 100 ml 1100 ml medications Current Medications Medications Dose Ordered Sig/Lanette Route Start Time Stop Time Status Last Admin Dose Admin Ceftriaxone Sodium 50 ml @ 100 mls/hr DAILY@09 IV 05/10/24 09:00 05/12/24 09:29 100 MLS/HR Metronidazole 100 ml @ 100 mls/hr Q8HR IV 05/10/24 06:00 05/12/24 15:48 100 MLS/HR Atenolol 25 mg BID PO 05/10/24 10:00 Hold 05/10/24 21:38 25 MG Levothyroxine Sodium 125 mcg QAM@0600 PO 05/10/24 06:00 05/12/24 05:23 125 MCG Lisinopril 40 mg DAILY PO 05/10/24 10:00 Hold Atorvastatin Calcium 40 mg HS PO 05/10/24 22:00 05/11/24 21:43 40 MG Acetaminophen/ Hydrocodone Bitart 1 tab Q4HP PRN PO 05/09/24 23:00 05/12/24 16:37 1 TAB Ondansetron HCl 4 mg Q4HP PRN IV 05/09/24 23:00 Hold Acetaminophen 650 mg Q6HP PRN PO 05/09/24 23:00 05/10/24 09:30 650 MG Morphine Sulfate 2 mg Q6HPRN PRN IV 05/09/24 23:00 Nitroglycerin 0.4 mg Q5MINP PRN SL 05/09/24 23:00 Morphine Sulfate 2 mg Q30M PRN IV 05/09/24 23:00 Enoxaparin Sodium 130 mg Q12HR SC 05/10/24 10:00 UNV Sodium Chloride 1,000 ml @ 100 mls/hr Q10H IV 05/10/24 13:15 05/12/24 15:50 100 MLS/HR Pantoprazole Sodium 40 mg DAILY IV 05/11/24 10:00 05/12/24 09:29 40 MG Amiodarone HCl 250 ml @ 33.333 mls/ hr Q7H30M IV 05/12/24 16:45 05/12/24 22:44 05/12/24 18:26 33.333 MLS/HR Amiodarone HCl 250 ml @ 16.667 mls/ hr Q15H IV 05/12/24 22:45 Examination General examination- Mild acute distress lying comfortably in bed, morbidly obese female HEENT- PEERLA, no acute nasal discharge Heart S1-S2 audible, rate and rhythm regular, no murmur Lungs- CTAB, no wheeze or rhonchi Abdomen- distended, lower abdominal tenderness, bowel sound+ Musculoskeletal-no acute joint swelling or tenderness or redness Lower extremity- no leg edema, but pain in the left lateral thigh Neurological- cranial nerves intact, no acute dysarthria or dysphagia Skin- no acute rash or purpura laboratory and microbiology Laboratory Tests 05/11/24 10:52 Test 05/11/24 10:52 Range/Units Serum Glucose 86 74-106 mg/dL Microbiology Date/Time Source Procedure Growth Status 05/09/24 21:14 Voided Urine Urine Culture - Final Complete Problem List/Assessment/Plan Problem List/Assessment/Plan Possible sigmoid diverticulitis with possibly bowel perforation. Fluid collection CT scan. Abdominal pain Diarrhea --> Stool for stool culture and C diff: Pending Left thigh pain Plan: Continue IV antibiotics baclofen for left leg pain Surgery following: under close observation, keep her n.p.o., give intravenous antibiotics, managed conservatively with IR evaluation for possible drainage Outpatient follow up in consideration for colonoscopy X-ray of the left leg pain Goal of care discussed for more than 19 minute: Full code Case and plan discussed with Dr. Dumont Plan discussed with: Patient, Other Dietary Evaluation Review Comments: 1) Advance pt diet when medically feasible to a [id number]/2gNa diet 2) Continue current plan of care Expected Outcomes/Goals: F/U in 3-5 days BREANNA JAMES RESIDENT May 12, 2024 19:17
[2024-05-12] MEDS: MORPHINE SULFATE INJ 2 MG/ml SYRG IV PRN (20:28)
--- NOTE | 2024-05-12 21:37 | DVHPN2 ---
Progress Note - Dictate Date Seen: May 12, 2024 Medical Necessity Reason Pt with a Central, PICC or Fol: No Subjective Patient was seen and evaluated in follow up. Chart/events reviewed. Patient's HR went up to the 180s and stayed in the 160s for approximately 10 minutes per RN. Patient was given Amio bolus and started on drip. Dr. Lexi Mcfarlane was consulted. Patient complains of left leg pain. WBC has decreased to 15.0 from 21.5. Hgb is 9.7. vital signs Vital Sign Date Time Temp Pulse Resp B/P (MAP) Pulse Ox O2 Delivery O2 Flow Rate FiO2 05/12/24 17:00 97.2 104 16 129/44 (72) 91 97.2 05/12/24 08:00 Room Air* 0 21 Total Intake and Output 05/11/24 05/11/24 05/12/24 15:00 23:00 07:00 Intake Total 1250 ml 100 ml 1100 ml Balance 1250 ml 100 ml 1100 ml medications Current Medications Medications Dose Ordered Sig/Lanette Route Start Time Stop Time Status Last Admin Dose Admin Ceftriaxone Sodium 50 ml @ 100 mls/hr DAILY@09 IV 05/10/24 09:00 05/12/24 09:29 100 MLS/HR Metronidazole 100 ml @ 100 mls/hr Q8HR IV 05/10/24 06:00 05/12/24 15:48 100 MLS/HR Atenolol 25 mg BID PO 05/10/24 10:00 Hold 05/10/24 21:38 25 MG Levothyroxine Sodium 125 mcg QAM@0600 PO 05/10/24 06:00 05/12/24 05:23 125 MCG Lisinopril 40 mg DAILY PO 05/10/24 10:00 Hold Atorvastatin Calcium 40 mg HS PO 05/10/24 22:00 05/11/24 21:43 40 MG Acetaminophen/ Hydrocodone Bitart 1 tab Q4HP PRN PO 05/09/24 23:00 05/12/24 20:34 1 TAB Ondansetron HCl 4 mg Q4HP PRN IV 05/09/24 23:00 Hold Acetaminophen 650 mg Q6HP PRN PO 05/09/24 23:00 05/10/24 09:30 650 MG Morphine Sulfate 2 mg Q6HPRN PRN IV 05/09/24 23:00 Nitroglycerin 0.4 mg Q5MINP PRN SL 05/09/24 23:00 Morphine Sulfate 2 mg Q30M PRN IV 05/09/24 23:00 Enoxaparin Sodium 130 mg Q12HR SC 05/10/24 10:00 UNV Sodium Chloride 1,000 ml @ 100 mls/hr Q10H IV 05/10/24 13:15 05/12/24 15:50 100 MLS/HR Pantoprazole Sodium 40 mg DAILY IV 05/11/24 10:00 05/12/24 09:29 40 MG Amiodarone HCl 250 ml @ 33.333 mls/ hr Q7H30M IV 05/12/24 16:45 05/12/24 22:44 05/12/24 18:26 33.333 MLS/HR Amiodarone HCl 250 ml @ 16.667 mls/ hr Q15H IV 05/12/24 22:45 Baclofen 5 mg Q8HP PRN PO 05/12/24 19:15 objective Physical exam: Vitals and nursing notes reviewed. General: In no acute distress, morbidly obese. HEENT: Normocephalic atraumatic, mucous membranes moist and pink. Neck: Cervical and supraclavicular nodes normal without enlargement. Pulmonary: Clear to auscultation and percussion bilaterally. Cardiac: Tachycardic. No murmur. Abdomen: Soft, tender in the left lower quadrant, nondistended, bowel sounds present all 4 quadrants, no guarding. Extremities: No cyanosis, clubbing, no edema. Neuro: Cranial nerves II through XII grossly intact, normal affect and speech, no focal motor deficits. Skin: Warm, dry, normal color and texture, no rash. laboratory and microbiology Laboratory Tests 05/11/24 10:52 Test 05/11/24 10:52 Range/Units Serum Glucose 86 74-106 mg/dL Problem List Acute diverticulitis Acute abdominal pain Elevated troponin Hypokalemia UTI Morbid obesity Assessment/Plan Continue current supportive medical care. Cardiology, Dr. Lexi Mcfarlane, consulted. F/u EKG. Amio bolus given. Continued on Amio drip. Surgical and GI consults. Radiology consult to evaluate drainage, perforated diverticulitis. Patient is High risk for surgery. IV antibiotics with Ceftriaxone and Metronidazole. Monitor daily labs; electrolyte replacement prn. IVFs. Protonix 40 mg IV daily. Keep NPO. Baclofen for left leg pain. Left Femur x-ray ordered/pending. DVT prophylaxis: Enoxaparin 130 mg SC q12h. Additional plan as per the hospital course. Dietary Evaluation Review Comments: 1) Advance pt diet when medically feasible to a [id number]/[id number] diet 2) Continue current plan of care Expected Outcomes/Goals: F/U in 3-5 days Plan discussed with: Patient, Other (RN) SMITHA MCFARLANE DO May 12, 2024 21:37
[2024-05-12] MEDS: BACLOFEN 10 MG TAB PO ONE (23:37)
--- NOTE | 2024-05-12 23:56 | DVHINCON2 ---
Date of service: May 12, 2024 Referring Physician Adria Reason for Consultation Tachycardia History of Present Illness This is a 73 year old female with a PMH of HLD, HTN, hypothyroidism, morbid obesity who presented to the ED on 05/09 with complaints of non-radiating, lower abdominal pain with associated symptoms of nausea, diarrhea, and poor appetite onset 05/09 morning. Patient reports that she was sent to [facility] ED by a local urgent care facility after being seen on 05/09 for unprovoked onset of persisting symptoms, with exception of diarrhea x 3 days prior. Patient states on also having urinary retention, constipation, and fever symptoms, initially, for the first 2 days that subsided on their own, with onset of diarrhea. CT ABD/PEL revealed diverticulitis with air in the retroperitoneum. No findings to suggest abscess at this time. Cholelithiasis. Small hiatal hernia. Chest x-ray showed NAD. NM HIDA showed nonvisualization of the gallbladder suggestive of cystic duct obstruction. Repeat CT abd/pel shows moderate fat stranding and induration in the central mesentery. There is an approximately 6.5 x 6.2 cm collection containing air and minimal fluid. The sigmoid colon traverses adjacent to this collection contains diverticula. Findings likely represent acute diverticulitis with rupture. Small to moderate size hiatal hernia.. Cholelithiasis. Mild fatty infiltration of the liver. I am asked to consult on this patient for tachycardia. Family History: Hypertension G8 MOTHER, , Age: 99 Allergies: Coded Allergies: NO KNOWN ALLERGIES (Unverified , 05/09/24) Home Meds Reported Medications Ascorbic Acid (VITAMIN C TABLET) 500 Mg Tb, PO, TAB 05/10/24 Vitamin A (Synthetic) (Vitamin A) 1 Pow Pow, 1 XX, POW 05/10/24 Cholecalciferol (VITAMIN D3) 2,000 Unit Tab, PO, TAB 05/10/24 [place]-3 Fatty Acids ([place]-3) 1,400 Mg Cap, PO, CAP 05/10/24 Levothyroxine Sodium (Levothyroxine Sodium) 125 Mcg Tab, 125 MCG PO QAM for 30 Days, MCG 05/10/24 Lisinopril (Lisinopril) 40 Mg Tab, 40 MG PO DAILY for 30 Days, MG 05/10/24 Atenolol (Atenolol) 25 Mg Tab, 25 MG PO BID for 30 Days, MG 05/10/24 Current Medications Current Medications Medications (Trade) Dose Ordered Sig/Lanette Route PRN Reason Start Time Stop Time Status Last Admin Amiodarone HCl 250 ml @ 33.333 mls/ hr Q7H30M IV 05/12/24 16:45 05/12/24 22:44 Amiodarone HCl 250 ml @ 16.667 mls/ hr Q15H IV 05/12/24 22:45 Review of Systems Constitutional: denies: chills, diaphoresis, fatigue, fever, malaise, sweats, weakness, others EENTM: denies: blurred vision, double vision, ear bleeding, ear discharge, ear drainage, ear pain, ear ringing, eye pain, eye redness, hearing loss, mouth pain, mouth swelling, nasal discharge, nose bleeding, nose congestion, nose pain, photophobia, tearing, throat pain, throat swelling, voice changes, others Respiratory: denies: cough, hemoptysis, orthopnea, SOB at rest, shortness of breath, SOB with excertion, stridor, wheezing, others Cardiovascular: denies: chest pain, dizzy spells, diaphoresis, Dyspnea on exertion, edema, irregular heart beat, left arm pain, lightheadedness, palpitations, PND, syncope, others Gastrointestinal: reports: abdominal pain (lower abdominal region ), diarrhea, nausea, poor appetite; denies: abdomen distended, blood streaked bowels, constipated, dysphagia, difficulty swallowing, hematemesis, melena, poor fluid intake, rectal bleeding, rectal pain, vomiting, others Genitourinary: denies: abnormal vagina bleeding, burning, dyspareunia, dysuria, flank pain, frequency, hematuria, incontinence, pain, , vagina discharge, urgency, others Neurological: denies: dizziness, fainting, headache, left sided numbness, left sided weakness, numbness, paresthesia, pre-existing deficit, right sided numbness, right sided weakness, seizure, speech problems, tingling, tremors, weakness, others Musculoskeletal: denies: back pain, gout, joint pain, joint swelling, muscle pain, muscle stiffness, neck pain, others Integumetry: denies: bruises, change in color, change in hair/nails, dryness, laceration, lesions, lumps, rash, wounds, others Hematologic/Lymphatic: denies: anemia, blood clots, easy bleeding, easy bruising, swollen glands, others Endocrine: denies: excessive hunger, excessive sweating, excessive thirst, excessive urination, flushing, intolerance to cold, intolerance to heat, unexplained weight gain, unexplained weight loss, others Psychiatric: denies: anxiety, bipolar disorder, Vital Signs Vital Signs Date Time Temp Pulse Resp B/P (MAP) Pulse Ox O2 Delivery O2 Flow Rate FiO2 05/12/24 13:00 98.6 102 17 115/49 (71) 92 98.6 05/12/24 08:00 Room Air* 0 21 Physical Exam GENERAL: Awake, alert, oriented. Morbidly obese. LUNGS: Clear. CARDIOVASCULAR: Tachycardic. ABDOMEN: Soft, tender in the left lower quadrant, nondistended, bowel sounds present all 4 quadrants, no guarding. Labs/Diagnostic Data Labs Test 05/11/24 10:52 05/10/24 05:25 05/09/24 23:42 05/09/24 23:20 Range/Units White Blood Count 15.0 #H 4.4-10.8 10^3/uL Red Blood Count 3.19 L 4.0-5.20 10^6/uL Hemoglobin 9.7 L 12.2-16.2 g/dL Hematocrit 29.2 L 36.0-46.0 % Mean Corpuscular Volume 91.4 80.0-100.0 fL Mean Corpuscular Hemoglobin 30.4 28.0-32.0 pg Mean Corpuscular Hemoglobin Concent 33.2 32.0-36.0 g/dL Red Cell Distribution Width 15.3 H 11.8-14.3 % Platelet Count 376 140-450 10^3/uL Mean Platelet Volume 8.4 6.9-10.8 fL Neutrophils (%) (Auto) 79.9 37.0-80.0 % Lymphocytes (%) (Auto) 6.5 L 10.0-50.0 % Monocytes (%) (Auto) 10.2 0.0-12.0 % Eosinophils (%) (Auto) 2.8 0.0-7.0 % Basophils (%) (Auto) 0.6 0.0-2.0 % Neutrophils # (Auto) 12.0 H 1.6-8.6 10 ^3/uL Lymphocytes # (Auto) 1.0 0.4-5.4 10 ^3/uL Monocytes # (Auto) 1.5 H 0-1.3 10 ^3/uL Eosinophils # (Auto) 0.4 0-0.8 10 ^3/uL Basophils # (Auto) 0.1 0-0.2 10 ^3/uL Nucleated Red Blood Cells 0.0 % Sodium Level 133 L 136-145 mmol/L Potassium Level 3.7 3.5-5.1 mmol/L Chloride Level 103 98-107 mmol/L Carbon Dioxide Level 24 20-31 mmol/L Anion Gap 6 5-15 Blood Urea Nitrogen 15 9-23 mg/dL Creatinine 1.04 H 0.550-1.02 mg/dL Glomerular Filtration Rate Calc 56 >90 mL/min BUN/Creatinine Ratio 14.4 10.0-20.0 Serum Glucose 86 74-106 mg/dL Calcium Level 8.7 8.7-10.4 mg/dL Phosphorus Level 3.8 2.4-5.1 mg/dL Magnesium Level 1.7 1.6-2.6 mg/dL Total Bilirubin 0.5 0.2-1.0 mg/dL Aspartate Amino Transferase (AST) 27 13-40 U/L Alanine Aminotransferase (ALT) 52 H 7-40 U/L Alkaline Phosphatase 134 H 46-116 U/L Lactate Dehydrogenase 296 H 120-246 U/L Total Protein 5.6 L 5.7-8.2 g/dL Albumin 3.4 3.2-4.8 g/dL Hemoglobin A1c 5.5 <5.7 % A1C Vitamin B12 Level 313 211-911 pg/mL Vitamin D 25-Hydroxy 48.6 30.0-100 ng/mL Thyroid Stimulating Hormone (TSH) 0.74 0.55-4.78 uIU/mL Hepatitis B Surface Antigen Negative Negative Hepatitis C Antibody Negative Negative Lactic Acid Level 0.7 0.4-2.0 mmol/L Troponin I High Sensitivity 307 *H </=34 ng/L Test 05/09/24 21:14 05/09/24 20:14 05/09/24 18:24 Range/Units Urine Color [place] H Yellow Urine Clarity Turbid H Clear Urine pH 6.0 5.0-9.0 Urine Specific [place] 1.024 1.001-1.035 Urine Protein 3+ H Negative Urine Ketones Trace Negative Urine Blood 1+ H Negative /uL Urine Nitrite Negative Negative Urine Bilirubin 1+ H Negative Urine Urobilinogen 3 H Negative mg/dL Urine Leukocyte Esterase 3+ Negative /uL Urine RBC 4 0 - 4 /hpf Urine WBC 316 0 - 5 /hpf Urine Squamous Epithelial Cells Few <5 /hpf Urine Bacteria None seen None Seen /hpf Urine Hyaline Casts Mod 0 - 2 /lpf Urine Granular Casts Few 0 /lpf Urine Mucus Moderate None Seen Urine Glucose Normal Normal mg/dL Prothrombin Time 12.1 H 9.3-11.8 sec Prothrombin Time INR 1.15 0.9-1.15 Activated Partial Thromboplast Time 28.3 24.5-34.5 SEC B-Type Natriuretic Peptide 722.28 0-100 pg/mL Lipase 29 12-53 U/L POC Glucose 123 H 70-106 mg/dl Microbiology Date/Time Source Procedure Growth Status 05/09/24 21:14 Voided Urine Urine Culture - Final Complete Assessment Acute diverticulitis. Acute abdominal pain. Elevated troponin. Hypokalemia. UTI. Morbid obesity. Diarrhea. Hypertension. Hypothyroidism. Plan/Recommendation I agree with your ongoing assessment and care of plan. Morphine and [place] for pain management. Amiodarone. Lipitor. IV antibiotics as ordered. GI prophylactics. Additional plan as per the hospital course. A total of 45 minutes was spent reviewing the patient record, examining the patient, making a diagnostic and therapeutic plan, discussing this plan with medical personnel, following up on diagnostic studies and following the patient for clinical stability excluding any and all procedures. At least 50% of this time was spent in direct, [id number] contact. Plan discussed with: Patient TRESA MCFARLANE MD May 12, 2024 17:40
[2024-05-13] VITALS (8 sets, daily range): BP systolic 138–191; BP diastolic 48–97; PULSE 92–103; RESP 18–20; TEMP 97.2–98.2; O2SAT 93–97
--- NOTE | 2024-05-13 01:55 | DVHINCON2 ---
DATE OF CONSULTATION: 05/12/2024 HISTORY OF PRESENT ILLNESS: This is a 73-year-old lady seen with nurse, Rabia and Dr. Raciel Finn. The patient has atrial fibrillation with rapid ventricular response up to 170-180 per minute, morbidly obese, found to have acute diverticulitis. PAST MEDICAL HISTORY: The patient has previous history of . SOCIAL HISTORY: No smoke, no alcohol, no drugs. Living with her family. PHYSICAL EXAMINATION: GENERAL: Awake, alert, and oriented. ABDOMEN: Previous history of abdominal pain. HEART: No cardiac history. LUNGS: Clear. IMAGING DATA: CT scan of the abdomen has revealed acute diverticulitis with air in the retroperitoneum. DIAGNOSES: As follows: * Atrial fibrillation with rapid ventricular response. * Acute diverticulitis with microperforation. * Morbid obesity. * The patient with profound leukocytosis has been noted. PLAN: Advised the patient to have full bolus of amiodarone followed by amiodarone IV protocol and discussion done with nurse and the patient understood and accepted. The patient is cardiac clear to undergo surgery. Nikki Finn MD MP/ROMEL/DAVIDE TID: [id number] RECEIPT: [id number]
--- NOTE | 2024-05-13 08:45 | ECG ---
[facility] Test Date: 2024-05-12 Test Time: 16:08:14 Pat Name: ARELIS CROWLEY Department: Respiratoy Room: 0216T B Gender: F [employer] Shift Manager: CHANELL : 1950 Requested By: SMITHA MCFARLANE Order Number: [id number] Reading MD: Cipriano Hwang Measurements Intervals [place] Rate: 144 P: 0 IA: 0 QRS: 71 QRSD: 97 T: -16 QT: 308 QTc: 477 Interpretive Statements Atrial fibrillation Low voltage, precordial leads Electronically Signed On 05-14-2024 17:24:41 PST by Cipriano Hwang Please click the below link to view image of tracing.
--- NOTE | 2024-05-13 10:47 | DVH ---
CLINICAL INDICATION: PAIN TECHNIQUE: For XY L FEMUR XRAY Comparison: None FINDINGS/IMPRESSION: Limited examination secondary to patient body habitus . There is no evidence of acute fracture or dislocation. Soft tissues are unremarkable.
--- NOTE | 2024-05-13 13:50 | DVHPN2 ---
Progress Note - Dictate Date Seen: May 13, 2024 Medical Necessity Reason Pt with a Central, PICC or Fol: No Subjective Patient was seen and evaluated in follow up. Patient is complaining of 6/10 abdominal pain. Left femur x-ray is WNL. Urine culture growing >100,000 CFU/mL Mixed Nikki vital signs Vital Sign Date Time Temp Pulse Resp B/P (MAP) Pulse Ox O2 Delivery O2 Flow Rate FiO2 05/13/24 08:56 97.7 96 18 162/48 (86) 96 97.7 05/13/24 08:00 Room Air* 0 21 Total Intake and Output 05/12/24 05/12/24 05/13/24 15:00 23:00 07:00 Intake Total 2050 ml 800 ml Balance 2050 ml 800 ml medications Current Medications Medications Dose Ordered Sig/Lanette Route Start Time Stop Time Status Last Admin Dose Admin Ceftriaxone Sodium 50 ml @ 100 mls/hr DAILY@09 IV 05/10/24 09:00 05/13/24 08:50 100 MLS/HR Metronidazole 100 ml @ 100 mls/hr Q8HR IV 05/10/24 06:00 05/13/24 05:51 100 MLS/HR Atenolol 25 mg BID PO 05/10/24 10:00 Hold 05/10/24 21:38 25 MG Levothyroxine Sodium 125 mcg QAM@0600 PO 05/10/24 06:00 05/13/24 05:51 125 MCG Lisinopril 40 mg DAILY PO 05/10/24 10:00 Hold Atorvastatin Calcium 40 mg HS PO 05/10/24 22:00 05/12/24 23:38 40 MG Acetaminophen/ Hydrocodone Bitart 1 tab Q4HP PRN PO 05/09/24 23:00 05/13/24 09:01 1 TAB Ondansetron HCl 4 mg Q4HP PRN IV 05/09/24 23:00 Hold Acetaminophen 650 mg Q6HP PRN PO 05/09/24 23:00 05/10/24 09:30 650 MG Morphine Sulfate 2 mg Q6HPRN PRN IV 05/09/24 23:00 Nitroglycerin 0.4 mg Q5MINP PRN SL 05/09/24 23:00 Morphine Sulfate 2 mg Q30M PRN IV 05/09/24 23:00 Enoxaparin Sodium 130 mg Q12HR SC 10/31/24 10:00 UNV Sodium Chloride 1,000 ml @ 100 mls/hr Q10H IV 05/10/24 13:15 05/13/24 10:00 100 MLS/HR Pantoprazole Sodium 40 mg DAILY IV 05/11/24 10:00 05/13/24 08:50 40 MG Amiodarone HCl 250 ml @ 16.667 mls/ hr Q15H IV 05/12/24 22:45 05/12/24 22:54 16.667 MLS/HR Baclofen 5 mg Q8HP PRN PO 05/12/24 19:15 objective GENERAL: Awake, alert, oriented. Morbidly obese. LUNGS: Clear. CARDIOVASCULAR: Tachycardic. ABDOMEN: Soft, tender in the left lower quadrant, nondistended, bowel sounds present all 4 quadrants, no guarding. laboratory and microbiology Laboratory Tests 05/11/24 10:52 Test 05/11/24 10:52 Range/Units Serum Glucose 86 74-106 mg/dL Problem List Atrial fibrillation with rapid ventricular response. Acute diverticulitis with microperforation. Morbid obesity. Profound leukocytosis. Acute abdominal pain. Elevated troponin. Hypokalemia. UTI. Morbid obesity. Diarrhea. Hypertension. Hypothyroidism. Assessment/Plan Continued all current supportive medical care. The patient is cardiac clear to undergo surgery. Morphine and [place] for pain management. Amiodarone. Lipitor, Metoprolol. IV antibiotics as ordered. GI prophylactics. Lisinopril. Additional plan as per the hospital course. Dietary Evaluation Review Comments: 1) Advance pt diet when medically feasible to a [id number]/[id number] diet 2) Continue current plan of care Expected Outcomes/Goals: F/U in 3-5 days Plan discussed with: Patient TRESA MCFARLANE MD May 13, 2024 13:02
[2024-05-13] MEDS: METOPROLOL SUCCINATE XL 50 MG TAB PO SCH (14:08)
--- NOTE | 2024-05-13 14:51 | DVHPN2 ---
Progress Note Date Seen: May 13, 2024 Medical Necessity Reason Pt with a Central, PICC or Fol: No Objective vital signs Vital Sign Date Time Temp Pulse Resp B/P (MAP) Pulse Ox O2 Delivery O2 Flow Rate FiO2 05/13/24 14:08 94 184/65 05/13/24 13:00 97.2 18 95 97.2 05/13/24 08:00 Room Air* 0 21 Total Intake and Output 05/12/24 05/12/24 05/13/24 15:00 23:00 07:00 Intake Total 2050 ml 800 ml Balance 2050 ml 800 ml medications Current Medications Medications Dose Ordered Sig/Lanette Route Start Time Stop Time Status Last Admin Dose Admin Ceftriaxone Sodium 50 ml @ 100 mls/hr DAILY@09 IV 05/10/24 09:00 05/13/24 08:50 100 MLS/HR Metronidazole 100 ml @ 100 mls/hr Q8HR IV 05/10/24 06:00 05/13/24 13:38 100 MLS/HR Atenolol 25 mg BID PO 05/10/24 10:00 Hold 05/10/24 21:38 25 MG Levothyroxine Sodium 125 mcg QAM@0600 PO 05/10/24 06:00 05/13/24 05:51 125 MCG Atorvastatin Calcium 40 mg HS PO 05/10/24 22:00 05/12/24 23:38 40 MG Acetaminophen/ Hydrocodone Bitart 1 tab Q4HP PRN PO 05/09/24 23:00 05/13/24 09:01 1 TAB Ondansetron HCl 4 mg Q4HP PRN IV 05/09/24 23:00 Hold Acetaminophen 650 mg Q6HP PRN PO 05/09/24 23:00 05/10/24 09:30 650 MG Morphine Sulfate 2 mg Q6HPRN PRN IV 05/09/24 23:00 Nitroglycerin 0.4 mg Q5MINP PRN SL 05/09/24 23:00 Morphine Sulfate 2 mg Q30M PRN IV 05/09/24 23:00 Enoxaparin Sodium 130 mg Q12HR SC 05/10/24 10:00 UNV Sodium Chloride 1,000 ml @ 100 mls/hr Q10H IV 05/10/24 13:15 05/13/24 10:00 100 MLS/HR Pantoprazole Sodium 40 mg DAILY IV 05/11/24 10:00 05/13/24 08:50 40 MG Amiodarone HCl 250 ml @ 16.667 mls/ hr Q15H IV 05/12/24 22:45 05/13/24 13:43 16.667 MLS/HR Baclofen 5 mg Q8HP PRN PO 05/12/24 19:15 Nifedipine 10 mg Q6HR PO 05/13/24 18:00 Metoprolol Succinate 25 mg TID PO 05/13/24 14:00 05/13/24 14:08 25 MG Lisinopril 40 mg DAILY PO 05/14/24 10:00 laboratory and microbiology Laboratory Tests 05/11/24 10:52 Test 05/11/24 10:52 Range/Units Serum Glucose 86 74-106 mg/dL Microbiology Date/Time Source Procedure Growth Status 05/09/24 21:14 Voided Urine Urine Culture - Final Complete Problem List/Assessment/Plan Problem List/Assessment/Plan AFEBRILE VSS ABD SOFT TENDER NO REBOUND FLATUS + WBC DOWN CONTINUE CLOSE OBSERVATION ALLOW SIPS OF WATER POSSIBLE REPEAT CT SCAN ABD PELVIS AM Plan discussed with: Patient Dietary Evaluation Review Comments: 1) Advance pt diet when medically feasible to a [id number]/[id number] diet 2) Continue current plan of care Expected Outcomes/Goals: F/U in 3-5 days CATALINO DEMPSEY MD May 13, 2024 14:51
[2024-05-13] MEDS: HYALURONIDASE 150 UNIT/1 ML SUBCUT ONE (15:30)
[2024-05-13] MEDS: NIFEdipine 10 MG CAP PO SCH (18:24)
--- NOTE | 2024-05-13 19:33 | DVHPN2 ---
Progress Note - Dictate Date Seen: May 13, 2024 Medical Necessity Reason Pt with a Central, PICC or Fol: No Subjective Patient ambulated with the assistance to bathroom On IV Abx L hip X Ray negative Pt had a bowel movement and is urinating well vital signs Vital Sign Date Time Temp Pulse Resp B/P (MAP) Pulse Ox O2 Delivery O2 Flow Rate FiO2 05/13/24 18:24 191/66 05/13/24 17:00 97.6 94 18 93 97.6 05/13/24 08:00 Room Air* 0 21 Total Intake and Output 05/12/24 05/12/24 05/13/24 15:00 23:00 07:00 Intake Total 2050 ml 800 ml Balance 2050 ml 800 ml medications Current Medications Medications Dose Ordered Sig/Lanette Route Start Time Stop Time Status Last Admin Dose Admin Ceftriaxone Sodium 50 ml @ 100 mls/hr DAILY@09 IV 05/10/24 09:00 05/13/24 08:50 100 MLS/HR Metronidazole 100 ml @ 100 mls/hr Q8HR IV 05/10/24 06:00 05/13/24 13:38 100 MLS/HR Atenolol 25 mg BID PO 05/10/24 10:00 Hold 05/10/24 21:38 25 MG Levothyroxine Sodium 125 mcg QAM@0600 PO 05/10/24 06:00 05/13/24 05:51 125 MCG Atorvastatin Calcium 40 mg HS PO 05/10/24 22:00 05/12/24 23:38 40 MG Acetaminophen/ Hydrocodone Bitart 1 tab Q4HP PRN PO 05/09/24 23:00 05/13/24 15:01 1 TAB Ondansetron HCl 4 mg Q4HP PRN IV 05/09/24 23:00 Hold Acetaminophen 650 mg Q6HP PRN PO 05/09/24 23:00 05/10/24 09:30 650 MG Morphine Sulfate 2 mg Q6HPRN PRN IV 05/09/24 23:00 Nitroglycerin 0.4 mg Q5MINP PRN SL 05/09/24 23:00 Morphine Sulfate 2 mg Q30M PRN IV 05/09/24 23:00 Enoxaparin Sodium 130 mg Q12HR SC 05/10/24 10:00 UNV Sodium Chloride 1,000 ml @ 100 mls/hr Q10H IV 05/10/24 13:15 05/13/24 10:00 100 MLS/HR Pantoprazole Sodium 40 mg DAILY IV 05/11/24 10:00 05/13/24 08:50 40 MG Amiodarone HCl 250 ml @ 16.667 mls/ hr Q15H IV 05/12/24 22:45 05/13/24 13:43 16.667 MLS/HR Baclofen 5 mg Q8HP PRN PO 05/12/24 19:15 Nifedipine 10 mg Q6HR PO 05/13/24 18:00 05/13/24 18:24 10 MG Metoprolol Succinate 25 mg TID PO 05/13/24 14:00 05/13/24 14:08 25 MG Lisinopril 40 mg DAILY PO 05/14/24 10:00 objective General examination- No acute distress , was able to ambulate to bathroom;morbidly obese female HEENT- [place], EOMI intact Heart S1-S2 audible, rate and rhythm regular, no murmur Lungs- CTAB, no wheeze or rhonchi Abdomen- distended, lower abdominal tenderness, bowel sound+ Musculoskeletal-no acute joint swelling or tenderness or redness Lower extremity- no leg edema, but pain in the left lateral thigh Neurological- cranial nerves intact, no acute dysarthria or dysphagia Skin- no acute rash or purpura laboratory and microbiology Laboratory Tests 05/11/24 10:52 Test 05/11/24 10:52 Range/Units Serum Glucose 86 74-106 mg/dL Problems(with codes): (1) Elevated brain natriuretic peptide (BNP) level (2) Non-STEMI (non-ST elevated myocardial infarction) (3) Elevated LFTs (4) Diverticulitis (5) Urinary tract infection (6) Cholelithiasis (7) Hiatal hernia (8) Atrial fibrillation Prognosis Plan Continue IV fluid hydration Continue IV antibiotics Surgical follow up appreciated Patient may be allowed ice chips Repeat CT of the abdomen plan for a.m. to evaluate for possible IR drainage Continue to monitor labs Dietary Evaluation Review Comments: 1) Advance pt diet when medically feasible to a [id number]/[id number] diet 2) Continue current plan of care Expected Outcomes/Goals: F/U in 3-5 days Plan discussed with: Patient, Daughter MITCHELL DEMPSEY MD May 13, 2024 19:33
[2024-05-13 20:11] LABS: Alanine Aminotransferase 34 U/L (7-40); Albumin 3.5 g/dL (3.2-4.8); Alkaline Phosphatase 130 U/L (46-116); Anion Gap 8 (5-15); Aspartate Aminotransferase 27 U/L (13-40); BUN/Creatinine Ratio 10.8 (10.0-20.0); Bilirubin, Total 0.4 mg/dL (0.2-1.0); Blood Urea Nitrogen 8 mg/dL (9-23); Carbon Dioxide 20 mmol/L (20-31); Chloride 106 mmol/L (98-107); Glucose 97 mg/dL (74-106); Potassium 3.7 mmol/L (3.5-5.1); Sodium 134 mmol/L (136-145); Total Protein 6.1 g/dL (5.7-8.2)
--- NOTE | 2024-05-13 20:21 | DVHPN2 ---
Progress Note - Dictate Date Seen: May 13, 2024 Medical Necessity Reason Pt with a Central, PICC or Fol: No Subjective Patient was seen and evaluated in follow up. No acute events overnight. Blood pressure is elevated. Patient is complaining of 6/10 abdominal pain. Patient ambulated with assistance to restroom. Reports having a bowel movement. Urinating well. Urine cultures reported >100k Mixed Nikki. Left Femur x-ray is unremarkable. New labs pending. vital signs Vital Sign Date Time Temp Pulse Resp B/P (MAP) Pulse Ox O2 Delivery O2 Flow Rate FiO2 05/13/24 18:24 191/66 05/13/24 17:00 97.6 94 18 93 97.6 05/13/24 08:00 Room Air* 0 21 Total Intake and Output 05/12/24 05/12/24 05/13/24 15:00 23:00 07:00 Intake Total 2050 ml 800 ml Balance 2050 ml 800 ml medications Current Medications Medications Dose Ordered Sig/Lanette Route Start Time Stop Time Status Last Admin Dose Admin Ceftriaxone Sodium 50 ml @ 100 mls/hr DAILY@09 IV 05/10/24 09:00 05/13/24 08:50 100 MLS/HR Metronidazole 100 ml @ 100 mls/hr Q8HR IV 05/10/24 06:00 05/13/24 13:38 100 MLS/HR Atenolol 25 mg BID PO 05/10/24 10:00 Hold 05/10/24 21:38 25 MG Levothyroxine Sodium 125 mcg QAM@0600 PO 05/10/24 06:00 05/13/24 05:51 125 MCG Atorvastatin Calcium 40 mg HS PO 05/10/24 22:00 05/12/24 23:38 40 MG Acetaminophen/ Hydrocodone Bitart 1 tab Q4HP PRN PO 05/09/24 23:00 05/13/24 15:01 1 TAB Ondansetron HCl 4 mg Q4HP PRN IV 05/09/24 23:00 Hold Acetaminophen 650 mg Q6HP PRN PO 05/09/24 23:00 05/10/24 09:30 650 MG Morphine Sulfate 2 mg Q6HPRN PRN IV 05/09/24 23:00 Nitroglycerin 0.4 mg Q5MINP PRN SL 05/09/24 23:00 Morphine Sulfate 2 mg Q30M PRN IV 05/09/24 23:00 Enoxaparin Sodium 130 mg Q12HR SC 05/10/24 10:00 UNV Sodium Chloride 1,000 ml @ 100 mls/hr Q10H IV 05/10/24 13:15 05/13/24 10:00 100 MLS/HR Pantoprazole Sodium 40 mg DAILY IV 05/11/24 10:00 05/13/24 08:50 40 MG Amiodarone HCl 250 ml @ 16.667 mls/ hr Q15H IV 05/12/24 22:45 05/13/24 13:43 16.667 MLS/HR Baclofen 5 mg Q8HP PRN PO 05/12/24 19:15 Nifedipine 10 mg Q6HR PO 05/13/24 18:00 05/13/24 18:24 10 MG Metoprolol Succinate 25 mg TID PO 05/13/24 14:00 05/13/24 14:08 25 MG Lisinopril 40 mg DAILY PO 05/14/24 10:00 objective Physical exam: Vitals and nursing notes reviewed. General: In no acute distress, morbidly obese. HEENT: Normocephalic atraumatic, mucous membranes moist and pink. Neck: Cervical and supraclavicular nodes normal without enlargement. Pulmonary: Clear to auscultation and percussion bilaterally. Cardiac: Tachycardic. No murmur. Abdomen: Soft, tender in the left lower quadrant, nondistended, bowel sounds present all 4 quadrants, no guarding. Extremities: No cyanosis, clubbing, no edema. Neuro: Cranial nerves II through XII grossly intact, normal affect and speech, no focal motor deficits. Skin: Warm, dry, normal color and texture, no rash. laboratory and microbiology Test 05/13/24 19:47 Range/Units Serum Glucose Pending Problem List Acute diverticulitis Acute abdominal pain Elevated troponin Hypokalemia UTI Morbid obesity Assessment/Plan Continue current supportive medical care. Surgery, GI and Cardiology consults. Amio drip. Repeat CT Abdomen ordered for AM to evaluate for possible IR drainage. Patient is High risk for surgery. IV antibiotics with Ceftriaxone and Metronidazole. Optimization of BP with Nifedipine 10 mg po q6h for SBP >150. Metoprolol 25 mg p.o TID and Lisinopril 40 mg daily. Monitor daily labs; electrolyte replacement prn. IVFs. Protonix 40 mg IV daily. Keep NPO. Patient may be allowed ice chips. Baclofen for left leg pain. DVT prophylaxis: Enoxaparin 130 mg SC q12h. Additional plan as per the hospital course. Dietary Evaluation Review Comments: 1) Advance pt diet when medically feasible to a [id number] diet 2) Continue current plan of care Expected Outcomes/Goals: F/U in 3-5 days Plan discussed with: Patient, Other (RN) SMITHA MCFARLANE DO May 13, 2024 20:21
[2024-05-13 20:32] LABS: Basophils # (auto) 0.1 10 ^3/uL (0-0.2); Basophils % (auto) 0.6 % (0.0-2.0); Eosinophils # (auto) 0.3 10 ^3/uL (0-0.8); Hematocrit 31.8 % (36.0-46.0); Hemoglobin 10.3 g/dL (12.2-16.2); Lymphocytes # (auto) 0.9 10 ^3/uL (0.4-5.4); Lymphocytes % (auto) 5.3 % (10.0-50.0); Mean Corpuscular Hemoglobin 29.3 pg (28.0-32.0); Mean Corpuscular Hgb Conc. 32.4 g/dL (32.0-36.0); Mean Corpuscular Volume 90.4 fL (80.0-100.0); Monocytes # (auto) 1.2 10 ^3/uL (0-1.3); Monocytes % (auto) 6.9 % (0.0-12.0); Neutrophils % (auto) 85.2 % (37.0-80.0); Nucleated Red Blood Cells % 0.1 %; Platelet Count (auto) 478 10^3/uL (140-450); Red Blood Cells 3.51 10^6/uL (4.0-5.20); Red Cell Distribution Width 15.2 % (11.8-14.3); White Blood Cell 17.6 10^3/uL (4.4-10.8)
[2024-05-14] VITALS (7 sets, daily range): BP systolic 138–167; BP diastolic 57–92; PULSE 85–99; RESP 15–20; TEMP 97.4–98.6; O2SAT 92–97
--- NOTE | 2024-05-14 09:28 | DVHPN2 ---
Progress Note - Dictate Date Seen: May 14, 2024 Medical Necessity Reason Pt with a Central, PICC or Fol: No Subjective Patient was seen and evaluated in follow up. No overnight events. Patient is complaining of abdominal pain. Patient is urinating well and having BMs. She denies any chest pain. vital signs Vital Sign Date Time Temp Pulse Resp B/P (MAP) Pulse Ox O2 Delivery O2 Flow Rate FiO2 05/14/24 08:53 98.6 86 19 138/63 (88) 92 98.6 05/13/24 20:00 Nasal Cannula* 2 28 Total Intake and Output 05/13/24 05/13/24 05/14/24 15:00 23:00 07:00 Intake Total 250 ml 485 ml 0 ml Balance 250 ml 485 ml 0 ml medications Current Medications Medications Dose Ordered Sig/Alnette Route Start Time Stop Time Status Last Admin Dose Admin Ceftriaxone Sodium 50 ml @ 100 mls/hr DAILY@09 IV 05/10/24 09:00 05/13/24 08:50 100 MLS/HR Metronidazole 100 ml @ 100 mls/hr Q8HR IV 05/10/24 06:00 05/14/24 05:21 100 MLS/HR Atenolol 25 mg BID PO 05/10/24 10:00 Hold 05/10/24 21:38 25 MG Levothyroxine Sodium 125 mcg QAM@0600 PO 05/10/24 06:00 05/14/24 05:39 125 MCG Atorvastatin Calcium 40 mg HS PO 05/10/24 22:00 05/13/24 22:44 40 MG Acetaminophen/ Hydrocodone Bitart 1 tab Q4HP PRN PO 05/09/24 23:00 05/14/24 06:02 1 TAB Ondansetron HCl 4 mg Q4HP PRN IV 05/09/24 23:00 Hold Acetaminophen 650 mg Q6HP PRN PO 05/09/24 23:00 05/10/24 09:30 650 MG Morphine Sulfate 2 mg Q6HPRN PRN IV 05/09/24 23:00 Nitroglycerin 0.4 mg Q5MINP PRN SL 05/09/24 23:00 Morphine Sulfate 2 mg Q30M PRN IV 05/09/24 23:00 Enoxaparin Sodium 130 mg Q12HR SC 05/10/24 10:00 UNV Sodium Chloride 1,000 ml @ 100 mls/hr Q10H IV 05/10/24 13:15 05/13/24 21:15 100 MLS/HR Pantoprazole Sodium 40 mg DAILY IV 05/11/24 10:00 05/13/24 08:50 40 MG Amiodarone HCl 250 ml @ 16.667 mls/ hr Q15H IV 05/12/24 22:45 05/14/24 05:22 16.667 MLS/HR Baclofen 5 mg Q8HP PRN PO 05/12/24 19:15 Nifedipine 10 mg Q6HR PO 05/13/24 18:00 05/14/24 05:38 10 MG Metoprolol Succinate 25 mg TID PO 05/13/24 14:00 05/14/24 05:48 25 MG Lisinopril 40 mg DAILY PO 05/14/24 10:00 objective GENERAL: Awake, alert, oriented. Morbidly obese. LUNGS: Clear. CARDIOVASCULAR: Tachycardic. ABDOMEN: Soft, tender in the left lower quadrant, nondistended, bowel sounds present all 4 quadrants, no guarding. laboratory and microbiology Laboratory Tests 05/13/24 20:23 05/13/24 19:47 Test 05/13/24 19:47 Range/Units Serum Glucose 97 74-106 mg/dL Problem List Atrial fibrillation with rapid ventricular response. Acute diverticulitis with microperforation. Morbid obesity. Profound leukocytosis. Acute abdominal pain. Elevated troponin. Hypokalemia. UTI. Morbid obesity. Diarrhea. Hypertension. Hypothyroidism. Assessment/Plan Continued all current supportive medical care. The patient is cardiac clear to undergo surgery. Morphine and Edmonds for pain management. Amiodarone. Lipitor, Metoprolol. IV antibiotics as ordered. GI prophylactics. Lisinopril, Nifedipine. Additional plan as per the hospital course. Dietary Evaluation Review Comments: 1) Advance pt diet when medically feasible to a [id number]/2gNa diet 2) Continue current plan of care Expected Outcomes/Goals: F/U in 3-5 days Plan discussed with: Patient TRESA MCFARLANE MD May 14, 2024 09:28
[2024-05-14] MEDS: LISINOPRIL 20 MG TAB PO SCH (09:57)
--- NOTE | 2024-05-14 15:10 | DVHPN2 ---
Progress Note Date Seen: May 14, 2024 Medical Necessity Reason Pt with a Central, PICC or Fol: No Objective vital signs Vital Sign Date Time Temp Pulse Resp B/P (MAP) Pulse Ox O2 Delivery O2 Flow Rate FiO2 05/14/24 12:13 86 156/59 05/14/24 08:53 98.6 19 92 98.6 05/13/24 20:00 Nasal Cannula* 2 28 Total Intake and Output 05/13/24 05/13/24 05/14/24 15:00 23:00 07:00 Intake Total 250 ml 485 ml 0 ml Balance 250 ml 485 ml 0 ml medications Current Medications Medications Dose Ordered Sig/Lanette Route Start Time Stop Time Status Last Admin Dose Admin Ceftriaxone Sodium 50 ml @ 100 mls/hr DAILY@09 IV 05/10/24 09:00 05/14/24 12:07 100 MLS/HR Metronidazole 100 ml @ 100 mls/hr Q8HR IV 05/10/24 06:00 05/14/24 13:04 100 MLS/HR Atenolol 25 mg BID PO 05/10/24 10:00 Hold 05/10/24 21:38 25 MG Levothyroxine Sodium 125 mcg QAM@0600 PO 05/10/24 06:00 05/14/24 05:39 125 MCG Atorvastatin Calcium 40 mg HS PO 05/10/24 22:00 05/13/24 22:44 40 MG Acetaminophen/ Hydrocodone Bitart 1 tab Q4HP PRN PO 05/09/24 23:00 05/14/24 10:38 1 TAB Ondansetron HCl 4 mg Q4HP PRN IV 05/09/24 23:00 Hold Acetaminophen 650 mg Q6HP PRN PO 05/09/24 23:00 05/10/24 09:30 650 MG Morphine Sulfate 2 mg Q6HPRN PRN IV 05/09/24 23:00 Nitroglycerin 0.4 mg Q5MINP PRN SL 05/09/24 23:00 Morphine Sulfate 2 mg Q30M PRN IV 05/09/24 23:00 Enoxaparin Sodium 130 mg Q12HR SC 05/10/24 10:00 UNV Sodium Chloride 1,000 ml @ 100 mls/hr Q10H IV 05/10/24 13:15 05/13/24 21:15 100 MLS/HR Pantoprazole Sodium 40 mg DAILY IV 05/11/24 10:00 05/14/24 09:57 40 MG Amiodarone HCl 250 ml @ 16.667 mls/ hr Q15H IV 05/12/24 22:45 05/14/24 05:22 16.667 MLS/HR Baclofen 5 mg Q8HP PRN PO 05/12/24 19:15 Nifedipine 10 mg Q6HR PO 05/13/24 18:00 05/14/24 12:13 10 MG Metoprolol Succinate 25 mg TID PO 05/13/24 14:00 05/14/24 12:13 25 MG Lisinopril 40 mg DAILY PO 05/14/24 10:00 05/14/24 09:57 40 MG laboratory and microbiology Laboratory Tests 05/13/24 20:23 05/13/24 19:47 Test 05/13/24 19:47 Range/Units Serum Glucose 97 74-106 mg/dL Microbiology Date/Time Source Procedure Growth Status 05/09/24 21:14 Voided Urine Urine Culture - Final Complete Problem List/Assessment/Plan Problem List/Assessment/Plan AFEBRILE VSS ABD SOFT TENDER NO REBOUND FLATUS + WBC ELEVATED CONTINUE CLOSE OBSERVATION ALLOW SIPS OF WATER REPEAT CT SCAN ABD PELVIS AM Plan discussed with: Patient Dietary Evaluation Review Comments: 1) Advance pt diet when medically feasible to a [id number]/2gNa diet 2) Continue current plan of care Expected Outcomes/Goals: F/U in 3-5 days CATALINO DEMPSEY MD May 14, 2024 15:10
--- NOTE | 2024-05-14 15:53 | DVH ---
Exam: CT CT AB PEL WO CON-NO ORAL OR IV History: WBC level is increasing Comparison Study: CT CT AB PEL WO CON-NO ORAL OR IV on DOS: 05/09/24 Technique: Multidetector spiral CT of the abdomen and pelvis was performed from lung bases to pubic symphysis. Imaging was performed without IV contrast. Axial, coronal and sagittal multiplanar reform ats were obtained from the axial data set by the technologist. Radiation dose : Abdomen/Pelvis: CTDIvol 27.3 mGy, DLP 1651.34 mGy*cm. Findings: Evaluation of solid organs is limited due to lack of intravenous contrast use. Lung Bases: Atelectasis and scarring in the lung bases. Liver: The liver is normal in size. No focal lesions. Gallbladder and biliary Tree: Cholelithiasis noted without secondary findings of cholecystitis or lizz iary obstruction. Spleen: Unremarkable Pancreas: The pancreas is grossly normal in appearance. Adrenal Glands: Unremarkable Kidneys: Kidneys are grossly normal without calculi or hydronephrosis. Bladder: Grossly unremarkable for degree of distention. Bowel: The stomach is grossly normal in appearance. There is sigmoid diverticulosis with periclonic s tranding. There is an adjacent fluid and air collection measuring up to 82 x 70mm. The appendix is no t visualized; however, no secondary findings of acute appendicitis identified. Ascites: Absent Lymphadenopathy: No mesenteric, retroperitoneal or periportal lymphadenopathy. Abdominal wall and Mesentery: See above Vasculature: The visualized abdominal aorta is normal in size and caliber. Evaluation of abdominal a nd pelvic vessels is limited due to lack of intravenous contrast. Pelvic Organs: Unremarkable Musculoskeletal: No aggressive focal bony lesions, acute fractures or dislocation. IMPRESSION: 1. Acute diverticulitis with developing abscess measuring up to 82 X 70 mm. This could be further lucretia luated with contrast. Recommend CT guided or surgical drainage. Radiation optimization: All CT scans at this facility use at least one of these dose optimization salina hniques: Automated exposure control mA and/or kV adjustment per patient size (includes targeted exams where dose is matched to clinical indication) or iterative reconstruction. HS:Y
--- NOTE | 2024-05-14 19:08 | DVHPN2 ---
Progress Note - Dictate Date Seen: May 14, 2024 Medical Necessity Reason Pt with a Central, PICC or Fol: No Subjective Patient ambulated with the assistance to bathroom On IV Abx; L hip X Ray negative Pt had a bowel movement and is urinating well However patient has worsening leukocytosis today Repeat CT of the abdomen pelvis today shows an organizing developing abscess collection of about 8 x 7 cm vital signs Vital Sign Date Time Temp Pulse Resp B/P (MAP) Pulse Ox O2 Delivery O2 Flow Rate FiO2 05/14/24 17:18 98.3 92 15 167/77 (107) 95 98.3 05/14/24 08:00 Room Air* 0 N/A Nasal Cannula* Total Intake and Output 05/13/24 05/13/24 05/14/24 15:00 23:00 07:00 Intake Total 250 ml 485 ml 0 ml Balance 250 ml 485 ml 0 ml medications Current Medications Medications Dose Ordered Sig/Lanette Route Start Time Stop Time Status Last Admin Dose Admin Ceftriaxone Sodium 50 ml @ 100 mls/hr DAILY@09 IV 05/10/24 09:00 05/14/24 12:07 100 MLS/HR Metronidazole 100 ml @ 100 mls/hr Q8HR IV 05/10/24 06:00 05/14/24 13:04 100 MLS/HR Atenolol 25 mg BID PO 05/10/24 10:00 Hold 05/10/24 21:38 25 MG Levothyroxine Sodium 125 mcg QAM@0600 PO 05/10/24 06:00 05/14/24 05:39 125 MCG Atorvastatin Calcium 40 mg HS PO 05/10/24 22:00 05/13/24 22:44 40 MG Acetaminophen/ Hydrocodone Bitart 1 tab Q4HP PRN PO 05/09/24 23:00 05/14/24 10:38 1 TAB Ondansetron HCl 4 mg Q4HP PRN IV 05/09/24 23:00 Hold Acetaminophen 650 mg Q6HP PRN PO 05/09/24 23:00 05/10/24 09:30 650 MG Morphine Sulfate 2 mg Q6HPRN PRN IV 05/09/24 23:00 Nitroglycerin 0.4 mg Q5MINP PRN SL 05/09/24 23:00 Morphine Sulfate 2 mg Q30M PRN IV 05/09/24 23:00 Enoxaparin Sodium 130 mg Q12HR SC 05/10/24 10:00 UNV Sodium Chloride 1,000 ml @ 100 mls/hr Q10H IV 05/10/24 13:15 05/13/24 21:15 100 MLS/HR Pantoprazole Sodium 40 mg DAILY IV 05/11/24 10:00 05/14/24 09:57 40 MG Amiodarone HCl 250 ml @ 16.667 mls/ hr Q15H IV 05/12/24 22:45 05/14/24 05:22 16.667 MLS/HR Baclofen 5 mg Q8HP PRN PO 05/12/24 19:15 Nifedipine 10 mg Q6HR PO 05/13/24 18:00 05/14/24 12:13 10 MG Metoprolol Succinate 25 mg TID PO 05/13/24 14:00 05/14/24 12:13 25 MG Lisinopril 40 mg DAILY PO 05/14/24 10:00 05/14/24 09:57 40 MG objective General examination- No acute distress , was able to ambulate to bathroom;morbidly obese female HEENT- PEERLA, EOMI intact Heart S1-S2 audible, rate and rhythm regular, no murmur Lungs- CTAB, no wheeze or rhonchi Abdomen- distended, lower abdominal tenderness, bowel sound+ Musculoskeletal-no acute joint swelling or tenderness or redness Lower extremity- no leg edema, but pain in the left lateral thigh Neurological- cranial nerves intact, no acute dysarthria or dysphagia Skin- no acute rash or purpura laboratory and microbiology Laboratory Tests 05/13/24 20:23 05/13/24 19:47 Test 05/13/24 19:47 Range/Units Serum Glucose 97 74-106 mg/dL Problems(with codes): (1) Diverticulitis (2) Urinary tract infection (3) Cholelithiasis (4) Diverticulitis of intestine with perforation and abscess Prognosis Plan Keep NPO IV fluid hydration IV [facility] Radiology consult for CT-guided drainage of abscess Surgical follow up appreciated Dietary Evaluation Review Comments: 1) Advance pt diet when medically feasible to a [id number]/2gNa diet 2) Continue current plan of care Expected Outcomes/Goals: F/U in 3-5 days Plan discussed with: Other (Nurse) MITCHELL DEMPSEY MD May 14, 2024:08
--- NOTE | 2024-05-14 20:24 | DVHPN2 ---
Progress Note - Dictate Date Seen: May 14, 2024 Medical Necessity Reason Pt with a Central, PICC or Fol: No Subjective Patient was seen and evaluated in follow up. No acute events overnight. Patient had a bowel movement and is urinating well. WBC worsened to 17.[address] Abdomen Pelvis performed today shows an organizing developing abscess collection of approximately 8x7 cm. vital signs Vital Sign Date Time Temp Pulse Resp B/P (MAP) Pulse Ox O2 Delivery O2 Flow Rate FiO2 05/14/24 19:14 69 17 157/86 05/14/24 17:18 98.3 95 98.3 05/14/24 08:00 Room Air* 0 N/A Nasal Cannula* Total Intake and Output 05/13/24 05/13/24 05/14/24 15:00 23:00 07:00 Intake Total 250 ml 485 ml 0 ml Balance 250 ml 485 ml 0 ml medications Current Medications Medications Dose Ordered Sig/Lanette Route Start Time Stop Time Status Last Admin Dose Admin Ceftriaxone Sodium 50 ml @ 100 mls/hr DAILY@09 IV 05/10/24 09:00 05/14/24 12:07 100 MLS/HR Metronidazole 100 ml @ 100 mls/hr Q8HR IV 05/10/24 06:00 05/14/24 13:04 100 MLS/HR Atenolol 25 mg BID PO 05/10/24 10:00 Hold 05/10/24 21:38 25 MG Levothyroxine Sodium 125 mcg QAM@0600 PO 05/10/24 06:00 05/14/24 05:39 125 MCG Atorvastatin Calcium 40 mg HS PO 05/10/24 22:00 05/13/24 22:44 40 MG Acetaminophen/ Hydrocodone Bitart 1 tab Q4HP PRN PO 05/09/24 23:00 05/14/24 10:38 1 TAB Ondansetron HCl 4 mg Q4HP PRN IV 05/09/24 23:00 Hold Acetaminophen 650 mg Q6HP PRN PO 05/09/24 23:00 05/10/24 09:30 650 MG Morphine Sulfate 2 mg Q6HPRN PRN IV 05/09/24 23:00 05/14/24 19:14 2 MG Nitroglycerin 0.4 mg Q5MINP PRN SL 05/09/24 23:00 Morphine Sulfate 2 mg Q30M PRN IV 05/09/24 23:00 Enoxaparin Sodium 130 mg Q12HR SC 05/10/24 10:00 UNV Sodium Chloride 1,000 ml @ 100 mls/hr Q10H IV 05/10/24 13:15 05/13/24 21:15 100 MLS/HR Pantoprazole Sodium 40 mg DAILY IV 05/11/24 10:00 05/14/24 09:57 40 MG Amiodarone HCl 250 ml @ 16.667 mls/ hr Q15H IV 05/12/24 22:45 05/14/24 05:22 16.667 MLS/HR Baclofen 5 mg Q8HP PRN PO 05/12/24 19:15 Nifedipine 10 mg Q6HR PO 05/13/24 18:00 05/14/24 12:13 10 MG Metoprolol Succinate 25 mg TID PO 05/13/24 14:00 05/14/24 12:13 25 MG Lisinopril 40 mg DAILY PO 05/14/24 10:00 05/14/24 09:57 40 MG objective Physical exam: Vitals and nursing notes reviewed. General: In no acute distress, morbidly obese. HEENT: Normocephalic atraumatic, mucous membranes moist and pink. Neck: Cervical and supraclavicular nodes normal without enlargement. Pulmonary: Clear to auscultation and percussion bilaterally. Cardiac: Tachycardic. No murmur. Abdomen: Soft, tender in the left lower quadrant, nondistended, bowel sounds present all 4 quadrants, no guarding. Extremities: No cyanosis, clubbing, no edema. Neuro: Cranial nerves II through XII grossly intact, normal affect and speech, no focal motor deficits. Skin: Warm, dry, normal color and texture, no rash. laboratory and microbiology Laboratory Tests 05/13/24 20:23 05/13/24 19:47 Test 05/13/24 19:47 Range/Units Serum Glucose 97 74-106 mg/dL Problem List Acute diverticulitis Acute abdominal pain Elevated troponin Hypokalemia UTI Morbid obesity Assessment/Plan Continue current supportive medical care. Surgery, GI and Cardiology consults. Radiology consult for CT-guided drainage of abscess. Patient is High Risk for surgery. Remains on Amio drip. IV antibiotics with Ceftriaxone and Metronidazole. Optimization of BP with Nifedipine 10 mg po q6h for SBP >150. Metoprolol 25 mg p.o TID. Monitor daily labs; electrolyte replacement prn. IVFs with NS at 100 mL/hr. Protonix 40 mg IV daily. Keep NPO. Pain management prn. DVT prophylaxis: Enoxaparin 130 mg SC q12h. Additional plan as per the hospital course. Dietary Evaluation Review Comments: 1) Advance pt diet when medically feasible to a [id number]/2gNa diet 2) Continue current plan of care Expected Outcomes/Goals: F/U in 3-5 days Plan discussed with: Patient, Other (RN) SMITHA MCFARLANE DO May 14, 2024 20:24
[2024-05-15] VITALS (9 sets, daily range): BP systolic 126–158; BP diastolic 60–80; PULSE 68–97; RESP 18–20; TEMP 97.9–98.8; O2SAT 94–98
[2024-05-15] MEDS: GASTROGRAFIN 30 ML SOL ONE (09:15)
[2024-05-15] MEDS: MIDAZOLAM HCL 2MG/2ML 2ml VIAL (1mg/ml) ONE (12:40)
[2024-05-15] MEDS: fentaNYL CITRATE 100 MCG/2 ML VL ONE (12:40)
[2024-05-15] MEDS: LIDOCAINE 2%HCL (LOCAL ANESTH.) INJ 10ml MDV ONE (12:40)
[2024-05-15] MEDS: AMIODARONE HCL 200 MG TAB PO SCH (13:03)
--- NOTE | 2024-05-15 13:15 | DVH ---
CT ABDOMEN AND PELVIS WITHOUT CONTRAST CLINICAL HISTORY: ABCESS DRAIN TECHNIQUE: Multidetector CT of the abdomen was performed from lung bases to pubic symphysis. Imaging was performed without IV and with oral contrast. Axial, coronal and sagittal multiplanar reformats we re obtained from the axial data set by the technologist. Radiation optimization: All CT scans at this facility use at least one of these dose optimization salina hniques: automated exposure control mA and/or kV adjustment per patient size (includes targeted exam s where dose is matched to clinical indication) or iterative reconstruction. Radiation Dose Information: CT Dose: CTDI volume is 22 mGy. Dose-length product is 200 mGy*cm Comparison: 05/14/2024 FINDINGS: [Findings] Evaluation of the abdominal viscera is limited without intravenous contrast. There are multiple diverticula in the sigmoid colon with a segment demonstrating irregular thickened hassan and surrounding inflammatory changes. There is associated 7.4 x 7.7 cm irregular fluid collecti on with air along the nondependent portion. There are no dilated small or large bowel loops. There is oral contrast seen in the small and large bowel loops to the level of the rectum. There is trace marti unt of contrast seen within the air-fluid collection. There is a small hiatal hernia . There are small calcified gallstones within the gallbladder. The l iver, pancreas, kidneys, adrenal glands, and spleen appear within normal limits. There is no gross evidence of abdominal lymphadenopathy. The abdominal aorta and IVC appear within normal limits. The bladder appears unremarkable for the degree of distention.. The uterus grossly appears unremarka ble. There is no evidence of a pelvic mass or free fluid. Lung bases are clear. There is no acute osseous abnormality. IMPRESSION: 1. There is redemonstration of the sigmoid diverticulitis with likely bowel rupture and associated abscess measuring 7.4 x 7.7 cm. There is small amount of contrast seen within the collection. HS:Y
--- NOTE | 2024-05-15 13:29 | DVH ---
CT CT GUIDANCE FOR NEEDLE PLACEME, HISTORY: ABCESS DRAIN of a perforated diverticular abscess. COMPARISON: None PROCEDURE: Informed consent was obtained. Oral contrast was given to the patient for a bowel prep 2ho urs prior. The patient was placed supine on the CT scanner. IV sedation was administered. The fluid c ollection was localized under CT scan and the overlying skin prepped with chlorhexidine which was all owed to dry and draped in the usual sterile fashion and infiltrated with Xylocaine. Time out was perf ormed. With CT guidance, a 19-gauge centesis needle catheter was advanced via trans-peritoneal approa ch into the fluid collection. Following aspiration of a small amount of fluid, a 0.035 wire was advan mamadou into the fluid collection. Placement was confirmed with CT scan. After serial dilatation, a 8.5 F rench pigtail drain was placed into the collection. Approximately 30 cc of purulent fluid was aspira hunter, with specimen sent for appropriate laboratory/cytology/laboratory and cytology evaluation. The d rain was sutured at the skin surface and connected to suction drainage. No immediate complication was noted. Post procedure CT imaging through the drain site was obtained. DLP = 3262 mGy-cm. SEDATION: Dr. Gianni Armando was personally responsible for the administration of moderate sedation during the procedure performed, including the use of an independent trained observer who had no other duties during the procedure. The drugs utilized were IV fentanyl and versed (see nursing log for details). The total time of supervision by the attending physician was approximately 45 minutes. FINDINGS: Limited CT scan of through the abdomen demonstrates a complex fluid collection in the mid l ower abdomen. Collection appears complex. Post procedure scan shows pigtail drain within the collecti on , which is decreased in size. No immediate complication was identified. IMPRESSION: CT guided placement of 8.5 Kinyarwanda pigtail drain into a midline lower intra-abdominal abscess. 30 mL o f purulent fluid was aspirated for analysis. PLAN: Routine tube care.
[2024-05-15] MEDS: levoFLOXacin 500MG 100 ML IV ONE (14:21)
--- NOTE | 2024-05-15 16:14 | DVHPN2 ---
Progress Note Date Seen: May 15, 2024 Medical Necessity Reason Pt with a Central, PICC or Fol: No Objective vital signs Vital Sign Date Time Temp Pulse Resp B/P (MAP) Pulse Ox O2 Delivery O2 Flow Rate FiO2 05/15/24 13:49 120 186/70 05/15/24 08:30 98.2 20 94 98.2 05/15/24 08:05 Room Air* 0 21 Total Intake and Output 05/14/24 05/14/24 05/15/24 15:00 23:00 07:00 Intake Total 1100 ml 0 ml Balance 1100 ml 0 ml medications Current Medications Medications Dose Ordered Sig/Lanette Route Start Time Stop Time Status Last Admin Dose Admin Ceftriaxone Sodium 50 ml @ 100 mls/hr DAILY@09 IV 05/10/24 09:00 05/15/24 10:21 100 MLS/HR Metronidazole 100 ml @ 100 mls/hr Q8HR IV 05/10/24 06:00 05/15/24 13:52 100 MLS/HR Atenolol 25 mg BID PO 05/10/24 10:00 Hold 05/10/24 21:38 25 MG Levothyroxine Sodium 125 mcg QAM@0600 PO 05/10/24 06:00 05/15/24 05:57 125 MCG Atorvastatin Calcium 40 mg HS PO 05/10/24 22:00 05/14/24 21:32 40 MG Acetaminophen/ Hydrocodone Bitart 1 tab Q4HP PRN PO 05/09/24 23:00 05/15/24 00:27 1 TAB Ondansetron HCl 4 mg Q4HP PRN IV 05/09/24 23:00 Hold Acetaminophen 650 mg Q6HP PRN PO 05/09/24 23:00 05/10/24 09:30 650 MG Nitroglycerin 0.4 mg Q5MINP PRN SL 05/09/24 23:00 Morphine Sulfate 2 mg Q30M PRN IV 05/09/24 23:00 Enoxaparin Sodium 130 mg Q12HR SC 05/10/24 10:00 UNV Sodium Chloride 1,000 ml @ 100 mls/hr Q10H IV 05/10/24 13:15 05/15/24 13:15 100 MLS/HR Pantoprazole Sodium 40 mg DAILY IV 05/11/24 10:00 05/15/24 13:02 40 MG Baclofen 5 mg Q8HP PRN PO 05/12/24 19:15 Nifedipine 10 mg Q6HR PO 05/13/24 18:00 05/15/24 13:49 10 MG Metoprolol Succinate 25 mg TID PO 05/13/24 14:00 05/15/24 13:49 25 MG Lisinopril 40 mg DAILY PO 05/14/24 10:00 05/15/24 13:08 40 MG Amiodarone HCl 200 mg Q12HR PO 05/15/24 10:00 05/15/24 13:03 200 MG Rivaroxaban 20 mg QPM PO 05/15/24 18:00 Hydromorphone HCl 0.25 mg Q4HPRN PRN IV 05/15/24 16:15 UNV laboratory and microbiology Laboratory Tests 05/13/24 20:23 05/13/24 19:47 Test 05/13/24 19:47 Range/Units Serum Glucose 97 74-106 mg/dL Microbiology Date/Time Source Procedure Growth Status 05/09/24 21:14 Voided Urine Urine Culture - Final Complete Problem List/Assessment/Plan Problem List/Assessment/Plan AFEBRILE VSS ABD SOFT TENDER NO REBOUND FLATUS + IR DRAINAGE OF INTRAABD ABSCESS DONE CONTINUE CLOSE OBSERVATION ALLOW SIPS OF WATER Plan discussed with: Patient My Orders My Orders Orders - CATALINO DEMPSEY MD Procedure Category Date Status Time Hydromorphone PHA 05/15/24 Logged Injection (Dilaudid 16:15 Communication Order ORDERS 05/15/24 Transmitted 16:10 Dietary Evaluation Review Comments: 1) Advance pt diet when medically feasible to a [id number]/[id number] diet 2) Continue current plan of care Expected Outcomes/Goals: F/U in 3-5 days CATALINO DEMPSEY MD May 15, 2024 16:14
[2024-05-15] MEDS: HYDROmorphone HCL 2 MG/ML VL/or syr IV PRN (16:34)
[2024-05-15] MEDS: RIVAROXABAN 20 MG TAB PO SCH (18:17)
--- NOTE | 2024-05-15 18:33 | DVHPN2 ---
Progress Note - Dictate Date Seen: May 15, 2024 Medical Necessity Reason Pt with a Central, PICC or Fol: No Subjective Patient seen at bedside Trying to move around with a walker Patient underwent IR drainage of the pelvic abscess No further drainage were noted in the epic team catheter bag CT guided placement of 8.5 Amharic pigtail drain into a midline lower intra- abdominal abscess. 30 mL of purulent fluid was aspirated for analysis. vital signs Vital Sign Date Time Temp Pulse Resp B/P (MAP) Pulse Ox O2 Delivery O2 Flow Rate FiO2 05/15/24 18:18 154/54 05/15/24 17:05 98.1 79 20 96 98.1 05/15/24 08:05 Room Air* 0 21 Total Intake and Output 05/14/24 05/14/24 05/15/24 15:00 23:00 07:00 Intake Total 1100 ml 0 ml Balance 1100 ml 0 ml medications Current Medications Medications Dose Ordered Sig/Lanette Route Start Time Stop Time Status Last Admin Dose Admin Ceftriaxone Sodium 50 ml @ 100 mls/hr DAILY@09 IV 05/10/24 09:00 05/15/24 10:21 100 MLS/HR Metronidazole 100 ml @ 100 mls/hr Q8HR IV 05/10/24 06:00 05/15/24 13:52 100 MLS/HR Atenolol 25 mg BID PO 05/10/24 10:00 Hold 05/10/24 21:38 25 MG Levothyroxine Sodium 125 mcg QAM@0600 PO 05/10/24 06:00 05/15/24 05:57 125 MCG Atorvastatin Calcium 40 mg HS PO 05/10/24 22:00 05/14/24 21:32 40 MG Acetaminophen/ Hydrocodone Bitart 1 tab Q4HP PRN PO 05/09/24 23:00 05/15/24 00:27 1 TAB Ondansetron HCl 4 mg Q4HP PRN IV 05/09/24 23:00 Hold Acetaminophen 650 mg Q6HP PRN PO 05/09/24 23:00 05/10/24 09:30 650 MG Nitroglycerin 0.4 mg Q5MINP PRN SL 05/09/24 23:00 Morphine Sulfate 2 mg Q30M PRN IV 05/09/24 23:00 Enoxaparin Sodium 130 mg Q12HR SC 05/10/24 10:00 UNV Sodium Chloride 1,000 ml @ 100 mls/hr Q10H IV 05/10/24 13:15 05/15/24 13:15 100 MLS/HR Pantoprazole Sodium 40 mg DAILY IV 05/11/24 10:00 05/15/24 13:02 40 MG Baclofen 5 mg Q8HP PRN PO 05/12/24 19:15 Nifedipine 10 mg Q6HR PO 05/13/24 18:00 05/15/24 18:18 10 MG Metoprolol Succinate 25 mg TID PO 05/13/24 14:00 05/15/24 13:49 25 MG Lisinopril 40 mg DAILY PO 05/14/24 10:00 05/15/24 13:08 40 MG Amiodarone HCl 200 mg Q12HR PO 05/15/24 10:00 05/15/24 13:03 200 MG Rivaroxaban 20 mg QPM PO 05/15/24 18:00 05/15/24 18:17 20 MG Hydromorphone HCl 0.25 mg Q4HPRN PRN IV 05/15/24 16:15 05/15/24 16:34 0.25 MG objective General examination- No acute distress , was able to ambulate to bathroom;morbidly obese female HEENT- PEERLA, EOMI intact Heart S1-S2 audible, rate and rhythm regular, no murmur Lungs- CTAB, no wheeze or rhonchi Abdomen- distended, lower abdominal tenderness, bowel sound+ Musculoskeletal-no acute joint swelling or tenderness or redness Lower extremity- no leg edema, but pain in the left lateral thigh Neurological- cranial nerves intact, no acute dysarthria or dysphagia Skin- no acute rash or purpura laboratory and microbiology Laboratory Tests 05/13/24 20:23 05/13/24 19:47 Test 05/13/24 19:47 Range/Units Serum Glucose 97 74-106 mg/dL Problems(with codes): (1) Diverticulitis of intestine with perforation and abscess (2) Elevated LFTs (3) Diverticulitis (4) Urinary tract infection (5) Cholelithiasis Prognosis Plan Continue supportive care IV fluid hydration IV antibiotics Surgical follow up Patient is high-risk for surgery and conservative management is ongoing Dietary Evaluation Review Comments: 1) Advance pt diet when medically feasible to a [id number] diet 2) Continue current plan of care Expected Outcomes/Goals: F/U in 3-5 days Plan discussed with: Patient, Daughter MITCHELL DEMPSEY MD May 15, 2024 18:32
--- NOTE | 2024-05-15 20:05 | DVH ---
EXAM: US LT UPPER DVT Clinical History: SWELLING,REDNESS Comparison: None Technique: Duplex Doppler evaluation of the deep venous systems of the left upper extremity from the internal ju gular to the ulnar vein including color Doppler and spectral/pulsed waveform analysis was performed. Findings: Normal compressibility and color Doppler flow is seen in the left upper extremity veins including the internal jugular, subclavian, axillary, brachial, radial and ulnar veins. There is a superficial venous thrombus in the left cephalic vein. Impression: 1. No sonographic evidence for left upper extremity DVT. 2. Superficial venous thrombus in the left cephalic vein.
--- NOTE | 2024-05-15 20:24 | DVHPN2 ---
Progress Note - Dictate Date Seen: May 15, 2024 Medical Necessity Reason Pt with a Central, PICC or Fol: No Subjective Patient was seen and evaluated in follow up. No acute events overnight. Patient underwent IR drainage of the pelvic abscess. CT guided placement of 8.5 Vincentian pigtail drain into midline lower intra-abdominal abscess. Remains NPO. Noted with swelling and redness to left upper extremity. vital signs Vital Sign Date Time Temp Pulse Resp B/P (MAP) Pulse Ox O2 Delivery O2 Flow Rate FiO2 05/15/24 18:18 154/54 05/15/24 17:05 98.1 79 20 96 98.1 05/15/24 08:05 Room Air* 0 21 Total Intake and Output 05/14/24 05/14/24 05/15/24 15:00 23:00 07:00 Intake Total 1100 ml 0 ml Balance 1100 ml 0 ml medications Current Medications Medications Dose Ordered Sig/Lanette Route Start Time Stop Time Status Last Admin Dose Admin Ceftriaxone Sodium 50 ml @ 100 mls/hr DAILY@09 IV 05/10/24 09:00 05/15/24 10:21 100 MLS/HR Metronidazole 100 ml @ 100 mls/hr Q8HR IV 05/10/24 06:00 05/15/24 13:52 100 MLS/HR Atenolol 25 mg BID PO 05/10/24 10:00 Hold 05/10/24 21:38 25 MG Levothyroxine Sodium 125 mcg QAM@0600 PO 05/10/24 06:00 05/15/24 05:57 125 MCG Atorvastatin Calcium 40 mg HS PO 05/10/24 22:00 05/14/24 21:32 40 MG Acetaminophen/ Hydrocodone Bitart 1 tab Q4HP PRN PO 05/09/24 23:00 05/15/24 00:27 1 TAB Ondansetron HCl 4 mg Q4HP PRN IV 05/09/24 23:00 Hold Acetaminophen 650 mg Q6HP PRN PO 05/09/24 23:00 05/10/24 09:30 650 MG Nitroglycerin 0.4 mg Q5MINP PRN SL 05/09/24 23:00 Morphine Sulfate 2 mg Q30M PRN IV 05/09/24 23:00 Enoxaparin Sodium 130 mg Q12HR SC 05/10/24 10:00 UNV Sodium Chloride 1,000 ml @ 100 mls/hr Q10H IV 05/10/24 13:15 05/15/24 13:15 100 MLS/HR Pantoprazole Sodium 40 mg DAILY IV 05/11/24 10:00 05/15/24 13:02 40 MG Baclofen 5 mg Q8HP PRN PO 05/12/24 19:15 Nifedipine 10 mg Q6HR PO 05/13/24 18:00 05/15/24 18:18 10 MG Metoprolol Succinate 25 mg TID PO 05/13/24 14:00 05/15/24 13:49 25 MG Lisinopril 40 mg DAILY PO 05/14/24 10:00 05/15/24 13:08 40 MG Amiodarone HCl 200 mg Q12HR PO 05/15/24 10:00 05/15/24 13:03 200 MG Rivaroxaban 20 mg QPM PO 05/15/24 18:00 05/15/24 18:17 20 MG Hydromorphone HCl 0.25 mg Q4HPRN PRN IV 05/15/24 16:15 05/15/24 16:34 0.25 MG objective Physical exam: Vitals and nursing notes reviewed. General: In no acute distress, morbidly obese. HEENT: Normocephalic atraumatic, mucous membranes moist and pink. Neck: Cervical and supraclavicular nodes normal without enlargement. Pulmonary: Clear to auscultation and percussion bilaterally. Cardiac: Tachycardic. No murmur. Abdomen: Soft, tender in the left lower quadrant, nondistended, bowel sounds present all 4 quadrants, no guarding. Extremities: Swelling and redness to left upper extremity. Neuro: Cranial nerves II through XII grossly intact, normal affect and speech, no focal motor deficits. Skin: Warm, dry, normal color and texture, no rash. laboratory and microbiology Laboratory Tests 05/13/24 20:23 05/13/24 19:47 Test 05/13/24 19:47 Range/Units Serum Glucose 97 74-106 mg/dL Problem List Acute diverticulitis Acute abdominal pain Elevated troponin Hypokalemia UTI Morbid obesity Assessment/Plan Continue current supportive medical care. Surgery, GI and Cardiology consults. S/p CT-guided drainage of abscess with IR. Purulent fluid aspirated and sent for analysis. Started on Xarelto 20 mg QPM. LUE US to r/o DVT. Transitioned to PO Amiodarone 200 mg BID. IV antibiotics with Ceftriaxone and Metronidazole. Optimization of BP. Monitor daily labs; electrolyte replacement prn. IVFs with NS at 100 mL/hr. Protonix 40 mg IV daily. Keep NPO. Allow sips of water. Pain management prn. Additional plan as per the hospital course. Dietary Evaluation Review Comments: 1) Advance pt diet when medically feasible to a [id number]/[id number] diet 2) Continue current plan of care Expected Outcomes/Goals: F/U in 3-5 days Plan discussed with: Patient, Other (RN) SMITHA MCFARLANE DO May 15, 2024 20:24
--- NOTE | 2024-05-15 23:31 | DVHPN2 ---
Progress Note - Dictate Date Seen: May 15, 2024 Medical Necessity Reason Pt with a Central, PICC or Fol: No Subjective Patient was seen and evaluated in follow up. Patient underwent CT guided placement of 8.5 Slovak pigtail drain into midline lower intra-abdominal abscess, tolerated procedure well. CT abd/pel shows redemonstration of the sigmoid diverticulitis with likely bowel rupture and associated abscess measuring 7.4 x 7.7 cm. There is small amount of contrast seen within the collection. LUE ultrasound shows no evidence of DVT. There is superficial venous thrombus in the left cephalic vein. vital signs Vital Sign Date Time Temp Pulse Resp B/P (MAP) Pulse Ox O2 Delivery O2 Flow Rate FiO2 05/15/24 22:30 81 158/61 05/15/24 21:00 98.8 20 98 98.8 05/15/24 08:05 Room Air* 0 21 Total Intake and Output 05/14/24 05/14/24 05/15/24 15:00 23:00 07:00 Intake Total 1100 ml 0 ml Balance 1100 ml 0 ml medications Current Medications Medications Dose Ordered Sig/Lanette Route Start Time Stop Time Status Last Admin Dose Admin Ceftriaxone Sodium 50 ml @ 100 mls/hr DAILY@09 IV 05/10/24 09:00 05/15/24 10:21 100 MLS/HR Metronidazole 100 ml @ 100 mls/hr Q8HR IV 05/10/24 06:00 05/15/24 22:30 100 MLS/HR Atenolol 25 mg BID PO 05/10/24 10:00 Hold 05/10/24 21:38 25 MG Levothyroxine Sodium 125 mcg QAM@0600 PO 05/10/24 06:00 05/15/24 05:57 125 MCG Atorvastatin Calcium 40 mg HS PO 05/10/24 22:00 05/15/24 22:30 40 MG Acetaminophen/ Hydrocodone Bitart 1 tab Q4HP PRN PO 05/09/24 23:00 05/15/24 00:27 1 TAB Ondansetron HCl 4 mg Q4HP PRN IV 05/09/24 23:00 Hold Acetaminophen 650 mg Q6HP PRN PO 05/09/24 23:00 05/10/24 09:30 650 MG Nitroglycerin 0.4 mg Q5MINP PRN SL 05/09/24 23:00 Morphine Sulfate 2 mg Q30M PRN IV 05/09/24 23:00 Enoxaparin Sodium 130 mg Q12HR SC 05/10/24 10:00 UNV Sodium Chloride 1,000 ml @ 100 mls/hr Q10H IV 05/10/24 13:15 05/15/24 13:15 100 MLS/HR Pantoprazole Sodium 40 mg DAILY IV 05/11/24 10:00 05/15/24 13:02 40 MG Baclofen 5 mg Q8HP PRN PO 05/12/24 19:15 Nifedipine 10 mg Q6HR PO 05/13/24 18:00 05/15/24 18:18 10 MG Metoprolol Succinate 25 mg TID PO 05/13/24 14:00 05/15/24 22:30 25 MG Lisinopril 40 mg DAILY PO 05/14/24 10:00 05/15/24 13:08 40 MG Amiodarone HCl 200 mg Q12HR PO 05/15/24 10:00 05/15/24 22:30 200 MG Rivaroxaban 20 mg QPM PO 05/15/24 18:00 05/15/24 18:17 20 MG Hydromorphone HCl 0.25 mg Q4HPRN PRN IV 05/15/24 16:15 05/15/24 16:34 0.25 MG objective GENERAL: Awake, alert, oriented. Morbidly obese. LUNGS: Clear. CARDIOVASCULAR: Tachycardic. ABDOMEN: Soft, tender in the left lower quadrant, nondistended, bowel sounds present all 4 quadrants, no guarding. laboratory and microbiology Laboratory Tests 05/13/24 20:23 05/13/24 19:47 Test 05/13/24 19:47 Range/Units Serum Glucose 97 74-106 mg/dL Problem List Atrial fibrillation with rapid ventricular response. Acute diverticulitis with microperforation. Morbid obesity. Profound leukocytosis. Acute abdominal pain. Elevated troponin. Hypokalemia. UTI. Morbid obesity. Diarrhea. Hypertension. Hypothyroidism. Assessment/Plan Continued all current supportive medical care. The patient is cardiac clear to undergo surgery. Morphine and Jay for pain management. Amiodarone. Lipitor, Metoprolol. IV antibiotics as ordered. GI prophylactics. Lisinopril, Nifedipine. Additional plan as per the hospital course. Dietary Evaluation Review Comments: 1) Advance pt diet when medically feasible to a [id number]/[id number] diet 2) Continue current plan of care Expected Outcomes/Goals: F/U in 3-5 days Plan discussed with: Patient TRESA MCFARLANE MD May 15, 2024 23:31
[2024-05-16] VITALS (8 sets, daily range): BP systolic 138–162; BP diastolic 51–70; PULSE 88–93; RESP 18–22; TEMP 97.6–98.8; O2SAT 93–100
--- NOTE | 2024-05-16 11:09 | DVHINCON2 ---
Date of service: May 16, 2024 Reason for Consultation Tachycardia History of Present Illness Patient is a 73-year-old female presented to the hospital on 05/09 for the complaint of lower abdominal pain. She reports that the pain was non-radiating associated with nausea, diarrhea, and poor appetite. Patient reports that she was sent to [facility] by a local urgent care facility after being seen on 05/09 for unprovoked onset of persisting symptoms, with exception of diarrhea for the past days. She states that she experienced urinary retention, constipation, and fever initially, for the first 2 days that subsided on their own, with onset of diarrhea. Previous findings: --CT ABD/PEL revealed diverticulitis with air in the retroperitoneum. No findings to suggest abscess at this time. Cholelithiasis. Small hiatal hernia. --Chest x-ray showed NAD. --NM HIDA showed nonvisualization of the gallbladder suggestive of cystic duct obstruction. --Repeat CT ABD/PEL shows moderate fat stranding and induration in the central mesentery. There is an approximately 6.5 x 6.2 cm collection containing air and minimal fluid. The sigmoid colon traverses adjacent to this collection contains diverticula. Findings likely represent acute diverticulitis with rupture. Small to moderate size hiatal hernia.. Cholelithiasis. Mild fatty infiltration of the liver. Urine culture revealed: 05/09: >100,000 CFU/mL Mixed Nikki >[address] [place] [address] Abdomen revealed: 05/15: There is redemonstration of the sigmoid diverticulitis with likely bowel rupture and associated abscess measuring 7.4 x 7.7 cm. There is small amount of contrast seen within the collection. Extremity venous study: 05/15: 1. No sonographic evidence for left upper extremity DVT. 2. Superficial venous thrombus in the left cephalic vein. Patient underwent IR drainage of the pelvic abscess. No further drainage were noted in the epic team catheter bag. Antibiotic status: Ceftriaxone Sodium IV 50 ml@100 mls/hr: [Started 05/10 - Ongoing] Past Medical History Patient's past medical history is significant for Hyperlipidemia, Hypertension, hypothyroidism and morbid obesity. Family History: Hypertension G8 MOTHER, , Age: 99 Allergies: Coded Allergies: NO KNOWN ALLERGIES (Unverified , 05/09/24) Home Meds Reported Medications Ascorbic Acid (VITAMIN C TABLET) 500 Mg Tb, PO, TAB 05/10/24 Vitamin A (Synthetic) (Vitamin A) 1 Pow Pow, 1 XX, POW 05/10/24 Cholecalciferol (VITAMIN D3) 2,000 Unit Tab, PO, TAB 05/10/24 [place]-3 Fatty Acids ([place]-3) 1,400 Mg Cap, PO, CAP 05/10/24 Levothyroxine Sodium (Levothyroxine Sodium) 125 Mcg Tab, 125 MCG PO QAM for 30 Days, MCG 05/10/24 Lisinopril (Lisinopril) 40 Mg Tab, 40 MG PO DAILY for 30 Days, MG 05/10/24 Atenolol (Atenolol) 25 Mg Tab, 25 MG PO BID for 30 Days, MG 05/10/24 Current Medications Current Medications Medications (Trade) Dose Ordered Sig/Lanette Route PRN Reason Start Time Stop Time Status Last Admin Rivaroxaban (Xarelto Tablet) 20 mg QPM PO 05/15/24 18:00 05/15/24 18:17 Hydromorphone HCl (Dilaudid Injection) 0.25 mg Q4HPRN PRN IV SEVERE PAIN (7-10 PAIN SCALE) 05/15/24 16:15 05/15/24 16:34 Review of Systems General: No Fever, chills, night sweats or weight loss HEENT: No Sinus pain, headache, vision changes or sore throat Respiratory: No Cough, dyspnea, sputum production Cardiovascular: No Chest pain, palpitations or leg edema Gastrointestinal: No vomiting. Reports abdominal pain, nausea, diarrhea and poor appetite. Genitourinary: No Dysuria, urinary frequency, hematuria, pelvic pain Skin: No Rashes, ulcers, abscesses, redness or swelling Musculoskeletal: No Joint pain, muscle pain or swelling Neurologic: No Altered mental status, headaches or focal neurological deficits Psychiatric: No Anxiety, depression or confusion Vital Signs Vital Signs Date Time Temp Pulse Resp B/P (MAP) Pulse Ox O2 Delivery O2 Flow Rate FiO2 05/16/24 08:46 98.8 91 18 138/51 (80) 94 98.8 05/15/24 20:10 Room Air* 0 21 Physical Exam General: Patient appears comfortable, well-appearing, resting comfortably. She is alert, awake, oriented and morbidly obese. HEENT: Normocephalic, atraumatic, Sclera anicteric, conjunctiva clear, No nasal discharge or congestion. Mucous membranes moist, no tonsillar erythema or exudates. Neck: No cervical lymphadenopathy or masses. Trachea midline, no neck stiffness. Lungs: Breath sounds clear bilaterally, no wheezes, rales, or rhonchi. No use of accessory muscles or respiratory distress. Cardiovascular: Tachycardiac. Pulses equal radial and peripheral. Abdomen: Soft, tender in the left lower quadrant, non-distended. Bowel sounds present in all quadrants. No hepatosplenomegaly or masses. Skin: No rash, petechiae, or ecchymosis. Extremities: No edema, cyanosis, or clubbing. No tenderness to palpation, erythema, or swelling in joints. No signs of deep vein thrombosis (DVT). Neurologic: Patient is alert and oriented to person, place, and time. Cranial nerves II-XII intact. Motor strength 5/5 bilaterally in all extremities. Sensory function intact to light touch and proprioception. No focal deficits or ataxia. Labs/Diagnostic Data Labs Test 05/13/24 20:23 05/13/24 19:47 05/11/24 10:52 05/10/24 05:25 Range/Units White Blood Count 17.6 H 4.4-10.8 10^3/uL Red Blood Count 3.51 L 4.0-5.20 10^6/uL Hemoglobin 10.3 L 12.2-16.2 g/dL Hematocrit 31.8 L 36.0-46.0 % Mean Corpuscular Volume 90.4 80.0-100.0 fL Mean Corpuscular Hemoglobin 29.3 28.0-32.0 pg Mean Corpuscular Hemoglobin Concent 32.4 32.0-36.0 g/dL Red Cell Distribution Width 15.2 H 11.8-14.3 % Platelet Count 478 H 140-450 10^3/uL Mean Platelet Volume 7.4 6.9-10.8 fL Neutrophils (%) (Auto) 85.2 H 37.0-80.0 % Lymphocytes (%) (Auto) 5.3 L 10.0-50.0 % Monocytes (%) (Auto) 6.9 0.0-12.0 % Eosinophils (%) (Auto) 2.0 0.0-7.0 % Basophils (%) (Auto) 0.6 0.0-2.0 % Neutrophils # (Auto) 15.0 H 1.6-8.6 10 ^3/uL Lymphocytes # (Auto) 0.9 0.4-5.4 10 ^3/uL Monocytes # (Auto) 1.2 0-1.3 10 ^3/uL Eosinophils # (Auto) 0.3 0-0.8 10 ^3/uL Basophils # (Auto) 0.1 0-0.2 10 ^3/uL Nucleated Red Blood Cells 0.1 % Sodium Level 134 L 136-145 mmol/L Potassium Level 3.7 3.5-5.1 mmol/L Chloride Level 106 98-107 mmol/L Carbon Dioxide Level 20 20-31 mmol/L Anion Gap 8 5-15 Blood Urea Nitrogen 8 L 9-23 mg/dL Creatinine 0.74 0.550-1.02 mg/dL Glomerular Filtration Rate Calc 85 >90 mL/min BUN/Creatinine Ratio 10.8 10.0-20.0 Serum Glucose 97 74-106 mg/dL Calcium Level 9.0 8.7-10.4 mg/dL Total Bilirubin 0.4 0.2-1.0 mg/dL Aspartate Amino Transferase (AST) 27 13-40 U/L Alanine Aminotransferase (ALT) 34 7-40 U/L Alkaline Phosphatase 130 H 46-116 U/L Total Protein 6.1 5.7-8.2 g/dL Albumin 3.5 3.2-4.8 g/dL Phosphorus Level 3.8 2.4-5.1 mg/dL Magnesium Level 1.7 1.6-2.6 mg/dL Lactate Dehydrogenase 296 H 120-246 U/L Hemoglobin A1c 5.5 <5.7 % A1C Vitamin B12 Level 313 211-911 pg/mL Vitamin D 25-Hydroxy 48.6 30.0-100 ng/mL Thyroid Stimulating Hormone (TSH) 0.74 0.55-4.78 uIU/mL Hepatitis B Surface Antigen Negative Negative Hepatitis C Antibody Negative Negative Test 05/09/24 23:42 05/09/24 23:20 05/09/24 21:14 05/09/24 20:14 Range/Units Lactic Acid Level 0.7 0.4-2.0 mmol/L Troponin I High Sensitivity 307 *H </=34 ng/L Urine Color [place] H Yellow Urine Clarity Turbid H Clear Urine pH 6.0 5.0-9.0 Urine Specific [place] 1.024 1.001-1.035 Urine Protein 3+ H Negative Urine Ketones Trace Negative Urine Blood 1+ H Negative /uL Urine Nitrite Negative Negative Urine Bilirubin 1+ H Negative Urine Urobilinogen 3 H Negative mg/dL Urine Leukocyte Esterase 3+ Negative /uL Urine RBC 4 0 - 4 /hpf Urine WBC 316 0 - 5 /hpf Urine Squamous Epithelial Cells Few <5 /hpf Urine Bacteria None seen None Seen /hpf Urine Hyaline Casts Mod 0 - 2 /lpf Urine Granular Casts Few 0 /lpf Urine Mucus Moderate None Seen Urine Glucose Normal Normal mg/dL Prothrombin Time 12.1 H 9.3-11.8 sec Prothrombin Time INR 1.15 0.9-1.15 Activated Partial Thromboplast Time 28.3 24.5-34.5 SEC B-Type Natriuretic Peptide 722.28 0-100 pg/mL Lipase 29 12-53 U/L Test 05/09/24 18:24 Range/Units POC Glucose 123 H 70-106 mg/dl Microbiology Date/Time Source Procedure Growth Status 05/09/24 21:14 Voided Urine Urine Culture - Final Complete Assessment Patient is a 73-year-old female presented to the hospital for the complaint of lower abdominal pain, Acute diverticulitis Acute abdominal pain UTI Elevated troponin Hypokalemia Morbid obesity Diarrhea Hypertension Hypothyroidism Recommendations: Thank you for consult. SAM GILES MD May 16, 2024 11:09
--- NOTE | 2024-05-16 13:51 | DVHPN2 ---
Progress Note - Dictate Date Seen: May 16, 2024 Medical Necessity Reason Pt with a Central, PICC or Fol: No Subjective Patient was seen and evaluated in follow up. Patient is c/o abdominal pain. Blood cultures are growing gram negative rods. LUE Venous Doppler is negative for DVT. There is superficial venous thrombus in the left cephalic vein. vital signs Vital Sign Date Time Temp Pulse Resp B/P (MAP) Pulse Ox O2 Delivery O2 Flow Rate FiO2 05/16/24 12:20 84 16 135/66 05/16/24 08:46 98.8 94 98.8 05/15/24 20:10 Room Air* 0 21 Total Intake and Output 05/15/24 05/15/24 05/16/24 15:00 23:00 07:00 Intake Total 150 ml 0 ml 25 ml Output Total 1 ml 100 ml Balance 150 ml -1 ml -75 ml medications Current Medications Medications Dose Ordered Sig/Lanette Route Start Time Stop Time Status Last Admin Dose Admin Ceftriaxone Sodium 50 ml @ 100 mls/hr DAILY@09 IV 05/10/24 09:00 05/16/24 11:34 100 MLS/HR Metronidazole 100 ml @ 100 mls/hr Q8HR IV 05/10/24 06:00 05/16/24 05:41 100 MLS/HR Atenolol 25 mg BID PO 05/10/24 10:00 Hold 05/10/24 21:38 25 MG Levothyroxine Sodium 125 mcg QAM@0600 PO 05/10/24 06:00 05/16/24 05:41 125 MCG Atorvastatin Calcium 40 mg HS PO 05/10/24 22:00 05/15/24 22:30 40 MG Acetaminophen/ Hydrocodone Bitart 1 tab Q4HP PRN PO 05/09/24 23:00 05/15/24 00:27 1 TAB Ondansetron HCl 4 mg Q4HP PRN IV 05/09/24 23:00 Hold Acetaminophen 650 mg Q6HP PRN PO 05/09/24 23:00 05/10/24 09:30 650 MG Nitroglycerin 0.4 mg Q5MINP PRN SL 05/09/24 23:00 Morphine Sulfate 2 mg Q30M PRN IV 05/09/24 23:00 Enoxaparin Sodium 130 mg Q12HR SC 05/10/24 10:00 UNV Sodium Chloride 1,000 ml @ 100 mls/hr Q10H IV 05/10/24 13:15 05/16/24 11:28 100 MLS/HR Pantoprazole Sodium 40 mg DAILY IV 05/11/24 10:00 05/16/24 11:26 40 MG Baclofen 5 mg Q8HP PRN PO 05/12/24 19:15 Nifedipine 10 mg Q6HR PO 05/13/24 18:00 05/16/24 11:49 10 MG Metoprolol Succinate 25 mg TID PO 05/13/24 14:00 05/16/24 05:41 25 MG Lisinopril 40 mg DAILY PO 05/14/24 10:00 05/16/24 11:44 40 MG Amiodarone HCl 200 mg Q12HR PO 05/15/24 10:00 05/16/24 11:45 200 MG Rivaroxaban 20 mg QPM PO 05/15/24 18:00 05/15/24 18:17 20 MG Hydromorphone HCl 0.25 mg Q4HPRN PRN IV 05/15/24 16:15 05/16/24 12:20 0.25 MG objective GENERAL: Awake, alert, oriented. Morbidly obese. LUNGS: Clear. CARDIOVASCULAR: Tachycardic. ABDOMEN: Soft, tender in the left lower quadrant, nondistended, bowel sounds present all 4 quadrants, no guarding. laboratory and microbiology Laboratory Tests 05/13/24 20:23 05/13/24 19:47 Test 05/13/24 19:47 Range/Units Serum Glucose 97 74-106 mg/dL Problem List Atrial fibrillation with rapid ventricular response. Acute diverticulitis with microperforation. Morbid obesity. Profound leukocytosis. Acute abdominal pain. Elevated troponin. Hypokalemia. UTI. Morbid obesity. Diarrhea. Hypertension. Hypothyroidism. Assessment/Plan Continued all current supportive medical care. The patient is cardiac clear to undergo surgery. Morphine and [place] for pain management. Amiodarone. Lipitor, Metoprolol. IV antibiotics as ordered. GI prophylactics. Lisinopril, Nifedipine. Additional plan as per the hospital course. Dietary Evaluation Review Comments: 1) Advance pt diet when medically feasible to a [id number] diet 2) Continue current plan of care Expected Outcomes/Goals: F/U in 3-5 days Plan discussed with: Patient TRESA MCFARLANE MD May 16, 2024 13:07
--- NOTE | 2024-05-16 13:58 | DVHPN2 ---
Progress Note - Dictate Date Seen: May 16, 2024 Medical Necessity Reason Pt with a Central, PICC or Fol: No Subjective Patient seen at bedside Patient is feeling better Abdominal pain has improved Minimal drainage noted in the tubing of the PEG tail catheter Patient underwent IR drainage of the pelvic abscess vital signs Vital Sign Date Time Temp Pulse Resp B/P (MAP) Pulse Ox O2 Delivery O2 Flow Rate FiO2 05/16/24 13:09 97.9 88 18 154/61 (92) 96 97.9 05/15/24 20:10 Room Air* 0 21 Total Intake and Output 05/15/24 05/15/24 05/16/24 15:00 23:00 07:00 Intake Total 150 ml 0 ml 25 ml Output Total 1 ml 100 ml Balance 150 ml -1 ml -75 ml medications Current Medications Medications Dose Ordered Sig/Lanette Route Start Time Stop Time Status Last Admin Dose Admin Ceftriaxone Sodium 50 ml @ 100 mls/hr DAILY@09 IV 05/10/24 09:00 05/16/24 11:34 100 MLS/HR Metronidazole 100 ml @ 100 mls/hr Q8HR IV 05/10/24 06:00 05/16/24 05:41 100 MLS/HR Atenolol 25 mg BID PO 05/10/24 10:00 Hold 05/10/24 21:38 25 MG Levothyroxine Sodium 125 mcg QAM@0600 PO 05/10/24 06:00 05/16/24 05:41 125 MCG Atorvastatin Calcium 40 mg HS PO 05/10/24 22:00 05/15/24 22:30 40 MG Acetaminophen/ Hydrocodone Bitart 1 tab Q4HP PRN PO 05/09/24 23:00 05/15/24 00:27 1 TAB Ondansetron HCl 4 mg Q4HP PRN IV 05/09/24 23:00 Hold Acetaminophen 650 mg Q6HP PRN PO 05/09/24 23:00 05/10/24 09:30 650 MG Nitroglycerin 0.4 mg Q5MINP PRN SL 05/09/24 23:00 Morphine Sulfate 2 mg Q30M PRN IV 05/09/24 23:00 Enoxaparin Sodium 130 mg Q12HR SC 05/10/24 10:00 UNV Sodium Chloride 1,000 ml @ 100 mls/hr Q10H IV 05/10/24 13:15 05/16/24 11:28 100 MLS/HR Pantoprazole Sodium 40 mg DAILY IV 05/11/24 10:00 05/16/24 11:26 40 MG Baclofen 5 mg Q8HP PRN PO 05/12/24 19:15 Nifedipine 10 mg Q6HR PO 05/13/24 18:00 05/16/24 11:49 10 MG Metoprolol Succinate 25 mg TID PO 05/13/24 14:00 05/16/24 05:41 25 MG Lisinopril 40 mg DAILY PO 05/14/24 10:00 05/16/24 11:44 40 MG Amiodarone HCl 200 mg Q12HR PO 05/15/24 10:00 05/16/24 11:45 200 MG Rivaroxaban 20 mg QPM PO 05/15/24 18:00 05/15/24 18:17 20 MG Hydromorphone HCl 0.25 mg Q4HPRN PRN IV 05/15/24 16:15 05/16/24 12:20 0.25 MG objective General examination- No acute distress , was able to ambulate to bathroom;morbidly obese female HEENT- PEERLA, EOMI intact Heart S1-S2 audible, rate and rhythm regular, no murmur Lungs- CTAB, no wheeze or rhonchi Abdomen- distended, lower abdominal tenderness, bowel sound+ Musculoskeletal-no acute joint swelling or tenderness or redness Lower extremity- no leg edema, but pain in the left lateral thigh Neurological- cranial nerves intact, no acute dysarthria or dysphagia Skin- no acute rash or purpura laboratory and microbiology Laboratory Tests 05/13/24 20:23 05/13/24 19:47 Test 05/13/24 19:47 Range/Units Serum Glucose 97 74-106 mg/dL Problems(with codes): (1) Diverticulitis of intestine with perforation and abscess (2) Cholelithiasis (3) Hiatal hernia (4) Elevated LFTs Prognosis Plan Continue IV antibiotics Repeat labs in a.m. Patient is allowed sips of water Surgical follow up appreciated Dietary Evaluation Review Comments: 1) Advance pt diet when medically feasible to a [id number] diet 2) Continue current plan of care Expected Outcomes/Goals: F/U in 3-5 days Plan discussed with: Patient, Daughter MITCHELL DEMPSEY MD 6, 2024 13:58
--- NOTE | 2024-05-16 21:18 | DVHPN2 ---
Progress Note - Dictate Date Seen: May 16, 2024 Medical Necessity Reason Pt with a Central, PICC or Fol: No Subjective Patient was seen and evaluated in follow up. No acute events overnight. Patient reports feeling better. Abdominal pain improved. Noted with minimal drainage in the tubing of PEG tail catheter. S/p IR drainage of the pelvic abscess. LUE Venous Doppler is negative for DVT; superficial venous thrombus in the left cephalic vein. vital signs Vital Sign Date Time Temp Pulse Resp B/P (MAP) Pulse Ox O2 Delivery O2 Flow Rate FiO2 05/16/24 20:24 140/73 05/16/24 20:11 91 19 05/16/24 16:47 97.6 93 97.6 05/16/24 08:30 Room Air* 0 21 Total Intake and Output 05/15/24 05/15/24 05/16/24 15:00 23:00 07:00 Intake Total 150 ml 0 ml 25 ml Output Total 1 ml 100 ml Balance 150 ml -1 ml -75 ml medications Current Medications Medications Dose Ordered Sig/Lanette Route Start Time Stop Time Status Last Admin Dose Admin Ceftriaxone Sodium 50 ml @ 100 mls/hr DAILY@09 IV 05/10/24 09:00 05/16/24 11:34 100 MLS/HR Metronidazole 100 ml @ 100 mls/hr Q8HR IV 05/10/24 06:00 05/16/24 18:49 100 MLS/HR Atenolol 25 mg BID PO 05/10/24 10:00 Hold 05/10/24 21:38 25 MG Levothyroxine Sodium 125 mcg QAM@0600 PO 05/10/24 06:00 05/16/24 05:41 125 MCG Atorvastatin Calcium 40 mg HS PO 05/10/24 22:00 05/15/24 22:30 40 MG Acetaminophen/ Hydrocodone Bitart 1 tab Q4HP PRN PO 05/09/24 23:00 05/15/24 00:27 1 TAB Ondansetron HCl 4 mg Q4HP PRN IV 05/09/24 23:00 Hold Acetaminophen 650 mg Q6HP PRN PO 05/09/24 23:00 05/10/24 09:30 650 MG Nitroglycerin 0.4 mg Q5MINP PRN SL 05/09/24 23:00 Morphine Sulfate 2 mg Q30M PRN IV 05/09/24 23:00 Enoxaparin Sodium 130 mg Q12HR SC 05/10/24 10:00 UNV Sodium Chloride 1,000 ml @ 100 mls/hr Q10H IV 05/10/24 13:15 05/16/24 11:28 100 MLS/HR Pantoprazole Sodium 40 mg DAILY IV 05/11/24 10:00 05/16/24 11:26 40 MG Baclofen 5 mg Q8HP PRN PO 05/12/24 19:15 Nifedipine 10 mg Q6HR PO 05/13/24 18:00 05/16/24 20:24 10 MG Metoprolol Succinate 25 mg TID PO 05/13/24 14:00 05/16/24 18:56 25 MG Lisinopril 40 mg DAILY PO 05/14/24 10:00 05/16/24 11:44 40 MG Amiodarone HCl 200 mg Q12HR PO 05/15/24 10:00 05/16/24 11:45 200 MG Rivaroxaban 20 mg QPM PO 05/15/24 18:00 05/16/24 18:49 20 MG Hydromorphone HCl 0.25 mg Q4HPRN PRN IV 05/15/24 16:15 05/16/24 20:11 0.25 MG objective Physical exam: Vitals and nursing notes reviewed. General: In no acute distress, morbidly obese. HEENT: Normocephalic atraumatic, mucous membranes moist and pink. Neck: Cervical and supraclavicular nodes normal without enlargement. Pulmonary: Clear to auscultation and percussion bilaterally. Cardiac: Tachycardic. No murmur. Abdomen: Soft, tender in the left lower quadrant, nondistended, bowel sounds present all 4 quadrants, no guarding. Extremities: Swelling and redness to left upper extremity. Neuro: Cranial nerves II through XII grossly intact, normal affect and speech, no focal motor deficits. Skin: Warm, dry, normal color and texture, no rash. laboratory and microbiology Laboratory Tests 05/13/24 20:23 05/13/24 19:47 Test 05/13/24 19:47 Range/Units Serum Glucose 97 74-106 mg/dL Problem List Acute diverticulitis Acute abdominal pain Elevated troponin Hypokalemia UTI Morbid obesity Assessment/Plan Continue current supportive medical care. Surgery, GI and Cardiology consults. S/p CT-guided drainage of abscess with IR 05/15. Purulent fluid aspirated and sent for analysis. Xarelto 20 mg QPM. Amiodarone 200 mg BID. IV antibiotics with Ceftriaxone and Metronidazole. Optimization of BP. AM labs. IVFs with NS at 100 mL/hr. Protonix 40 mg IV daily. Keep NPO. Allow sips of water. Pain management prn. Additional plan as per the hospital course. Dietary Evaluation Review Comments: 1) Advance pt diet when medically feasible to a [id number] diet 2) Continue current plan of care Expected Outcomes/Goals: F/U in 3-5 days Plan discussed with: Patient, Other (RN) SMITHA MCFARLANE DO May 16, 2024 21:18
[2024-05-17] VITALS (8 sets, daily range): BP systolic 129–156; BP diastolic 51–75; PULSE 80–90; RESP 18–20; TEMP 97.5–98.2; O2SAT 94–99
--- NOTE | 2024-05-17 07:47 | DVHPN2 ---
Progress Note - Dictate Date Seen: May 17, 2024 Medical Necessity Reason Pt with a Central, PICC or Fol: No Subjective Patient seen at bedside Patient is feeling better Abdominal pain has improved Minimal drainage noted in the tubing of the PEG tail catheter Patient underwent IR drainage of the pelvic abscess Patient had mild crackles at the bases and she was advised incentive spirometry vital signs Vital Sign Date Time Temp Pulse Resp B/P (MAP) Pulse Ox O2 Delivery O2 Flow Rate FiO2 05/17/24 06:07 86 130/51 05/17/24 05:00 98.0 18 94 98.0 05/16/24 20:00 Room Air* 0 21 Total Intake and Output 05/16/24 05/16/24 05/17/24 15:00 23:00 07:00 Intake Total 50 ml 400 ml 100 ml Balance 50 ml 400 ml 100 ml medications Current Medications Medications Dose Ordered Sig/Lanette Route Start Time Stop Time Status Last Admin Dose Admin Ceftriaxone Sodium 50 ml @ 100 mls/hr DAILY@09 IV 05/10/24 09:00 05/16/24 11:34 100 MLS/HR Metronidazole 100 ml @ 100 mls/hr Q8HR IV 05/10/24 06:00 05/17/24 05:29 100 MLS/HR Atenolol 25 mg BID PO 05/10/24 10:00 Hold 05/10/24 21:38 25 MG Levothyroxine Sodium 125 mcg QAM@0600 PO 05/10/24 06:00 05/17/24 05:29 125 MCG Atorvastatin Calcium 40 mg HS PO 05/10/24 22:00 05/16/24 21:52 40 MG Acetaminophen/ Hydrocodone Bitart 1 tab Q4HP PRN PO 05/09/24 23:00 05/15/24 00:27 1 TAB Ondansetron HCl 4 mg Q4HP PRN IV 05/09/24 23:00 Hold Acetaminophen 650 mg Q6HP PRN PO 05/09/24 23:00 05/10/24 09:30 650 MG Nitroglycerin 0.4 mg Q5MINP PRN SL 05/09/24 23:00 Morphine Sulfate 2 mg Q30M PRN IV 05/09/24 23:00 Enoxaparin Sodium 130 mg Q12HR SC 05/10/24 10:00 UNV Sodium Chloride 1,000 ml @ 100 mls/hr Q10H IV 05/10/24 13:15 05/16/24 19:15 100 MLS/HR Pantoprazole Sodium 40 mg DAILY IV 05/11/24 10:00 05/16/24 11:26 40 MG Baclofen 5 mg Q8HP PRN PO 05/12/24 19:15 Nifedipine 10 mg Q6HR PO 05/13/24 18:00 05/17/24 03:43 10 MG Metoprolol Succinate 25 mg TID PO 05/13/24 14:00 05/17/24 06:07 25 MG Lisinopril 40 mg DAILY PO 05/14/24 10:00 05/16/24 11:44 40 MG Amiodarone HCl 200 mg Q12HR PO 05/15/24 10:00 05/16/24 21:51 200 MG Rivaroxaban 20 mg QPM PO 05/15/24 18:00 05/16/24 18:49 20 MG Hydromorphone HCl 0.25 mg Q4HPRN PRN IV 05/15/24 16:15 05/17/24 03:34 0.25 MG objective General examination- No acute distress , was able to ambulate to bathroom;morbidly obese female HEENT- PEERLA, EOMI intact Heart S1-S2 audible, rate and rhythm regular, no murmur Lungs- CTAB, no wheeze or rhonchi Abdomen- distended, lower abdominal tenderness, bowel sound+ Musculoskeletal-no acute joint swelling or tenderness or redness Lower extremity- no leg edema, but pain in the left lateral thigh Neurological- cranial nerves intact, no acute dysarthria or dysphagia Skin- no acute rash or purpura laboratory and microbiology Laboratory Tests 05/13/24 20:23 05/13/24 19:47 Test 05/13/24 19:47 Range/Units Serum Glucose 97 74-106 mg/dL Problems(with codes): (1) Diverticulitis of intestine with perforation and abscess (2) Non-STEMI (non-ST elevated myocardial infarction) (3) Elevated LFTs (4) Diverticulitis (5) Urinary tract infection (6) Cholelithiasis Prognosis Plan Patient will likely need IV antibiotics for two weeks Clear liquid diet Likely repeat CT in 1-2 weeks to re-evaluate pelvic abscess with removal of pigtail drain at that time Dietary Evaluation Review Comments: 1) Advance pt diet when medically feasible to a [id number] diet 2) Continue current plan of care Expected Outcomes/Goals: F/U in 3-5 days Plan discussed with: Other (Dr Mikey Dumont) MITCHELL DUMONT MD May 17, 2024 07:47
--- NOTE | 2024-05-17 09:46 | DVHINCON2 ---
"Date of service: May 16, 2024 Family History: Hypertension G8 MOTHER, , Age: 99 Allergies: Coded Allergies: NO KNOWN ALLERGIES (Unverified , 05/09/24) Home Meds Reported Medications Ascorbic Acid (VITAMIN C TABLET) 500 Mg Tb, PO, TAB 05/10/24 Vitamin A (Synthetic) (Vitamin A) 1 Pow Pow, 1 XX, POW 05/10/24 Cholecalciferol (VITAMIN D3) 2,000 Unit Tab, PO, TAB 05/10/24 Holbrook-3 Fatty Acids (Holbrook-3) 1,400 Mg Cap, PO, CAP 05/10/24 Levothyroxine Sodium (Levothyroxine Sodium) 125 Mcg Tab, 125 MCG PO QAM for 30 Days, MCG 05/10/24 Lisinopril (Lisinopril) 40 Mg Tab, 40 MG PO DAILY for 30 Days, MG 05/10/24 Atenolol (Atenolol) 25 Mg Tab, 25 MG PO BID for 30 Days, MG 05/10/24 Vital Signs Vital Signs Date Time Temp Pulse Resp B/P (MAP) Pulse Ox O2 Delivery O2 Flow Rate FiO2 05/17/24 06:07 86 130/51 05/17/24 05:00 98.0 18 94 98.0 05/16/24 20:00 Room Air* 0 21 Labs/Diagnostic Data Labs Test 05/13/24 20:23 05/13/24 19:47 05/11/24 10:52 05/10/24 05:25 Range/Units White Blood Count 17.6 H 4.4-10.8 10^3/uL Red Blood Count 3.51 L 4.0-5.20 10^6/uL Hemoglobin 10.3 L 12.2-16.2 g/dL Hematocrit 31.8 L 36.0-46.0 % Mean Corpuscular Volume 90.4 80.0-100.0 fL Mean Corpuscular Hemoglobin 29.3 28.0-32.0 pg Mean Corpuscular Hemoglobin Concent 32.4 32.0-36.0 g/dL Red Cell Distribution Width 15.2 H 11.8-14.3 % Platelet Count 478 H 140-450 10^3/uL Mean Platelet Volume 7.4 6.9-10.8 fL Neutrophils (%) (Auto) 85.2 H 37.0-80.0 % Lymphocytes (%) (Auto) 5.3 L 10.0-50.0 % Monocytes (%) (Auto) 6.9 0.0-12.0 % Eosinophils (%) (Auto) 2.0 0.0-7.0 % Basophils (%) (Auto) 0.6 0.0-2.0 % Neutrophils # (Auto) 15.0 H 1.6-8.6 10 ^3/uL Lymphocytes # (Auto) 0.9 0.4-5.4 10 ^3/uL Monocytes # (Auto) 1.2 0-1.3 10 ^3/uL Eosinophils # (Auto) 0.3 0-0.8 10 ^3/uL Basophils # (Auto) 0.1 0-0.2 10 ^3/uL Nucleated Red Blood Cells 0.1 % Sodium Level 134 L 136-145 mmol/L Potassium Level 3.7 3.5-5.1 mmol/L Chloride Level 106 98-107 mmol/L Carbon Dioxide Level 20 20-31 mmol/L Anion Gap 8 5-15 Blood Urea Nitrogen 8 L 9-23 mg/dL Creatinine 0.74 0.550-1.02 mg/dL Glomerular Filtration Rate Calc 85 >90 mL/min BUN/Creatinine Ratio 10.8 10.0-20.0 Serum Glucose 97 74-106 mg/dL Calcium Level 9.0 8.7-10.4 mg/dL Total Bilirubin 0.4 0.2-1.0 mg/dL Aspartate Amino Transferase (AST) 27 13-40 U/L Alanine Aminotransferase (ALT) 34 7-40 U/L Alkaline Phosphatase 130 H 46-116 U/L Total Protein 6.1 5.7-8.2 g/dL Albumin 3.5 3.2-4.8 g/dL Phosphorus Level 3.8 2.4-5.1 mg/dL Magnesium Level 1.7 1.6-2.6 mg/dL Lactate Dehydrogenase 296 H 120-246 U/L Hemoglobin A1c 5.5 <5.7 % A1C Vitamin B12 Level 313 211-911 pg/mL Vitamin D 25-Hydroxy 48.6 30.0-100 ng/mL Thyroid Stimulating Hormone (TSH) 0.74 0.55-4.78 uIU/mL Hepatitis B Surface Antigen Negative Negative Hepatitis C Antibody Negative Negative Test 05/09/24 23:42 05/09/24 23:20 05/09/24 21:14 05/09/24 20:14 Range/Units Lactic Acid Level 0.7 0.4-2.0 mmol/L Troponin I High Sensitivity 307 *H </=34 ng/L Urine Color [place] H Yellow Urine Clarity Turbid H Clear Urine pH 6.0 5.0-9.0 Urine Specific [place] 1.024 1.001-1.035 Urine Protein 3+ H Negative Urine Ketones Trace Negative Urine Blood 1+ H Negative /uL Urine Nitrite Negative Negative Urine Bilirubin 1+ H Negative Urine Urobilinogen 3 H Negative mg/dL Urine Leukocyte Esterase 3+ Negative /uL Urine RBC 4 0 - 4 /hpf Urine WBC 316 0 - 5 /hpf Urine Squamous Epithelial Cells Few <5 /hpf Urine Bacteria None seen None Seen /hpf Urine Hyaline Casts Mod 0 - 2 /lpf Urine Granular Casts Few 0 /lpf Urine Mucus Moderate None Seen Urine Glucose Normal Normal mg/dL Prothrombin Time 12.1 H 9.3-11.8 sec Prothrombin Time INR 1.15 0.9-1.15 Activated Partial Thromboplast Time 28.3 24.5-34.5 SEC B-Type Natriuretic Peptide 722.28 0-100 pg/mL Lipase 29 12-53 U/L Test 05/09/24 18:24 Range/Units POC Glucose 123 H 70-106 mg/dl Microbiology Date/Time Source Procedure Growth Status 05/15/24 13:15 Aspirate Gram Stain - Final Resulted 05/15/24 13:15 Body Fluid Culture - Preliminary Escherichia coli Proteus mirabilis Resulted 05/09/24 21:14 Voided Urine Urine Culture - Final Complete Problems(with codes): (1) Diverticulitis of intestine with perforation and abscess (2) Elevated LFTs (3) Diverticulitis (4) Urinary tract infection Plan/Recommendation Sure, I'll generate a clinical note for you using the provided format, paying close attention to the structure, headers, writing style, and formatting. - ASSESSMENT AND PLAN: ID Problem List: - Acute diverticulitis - Diverticular abscess - Acute abdominal pain UTI - Elevated troponin - Hypokalemia - Morbid obesity - Diarrhea - Hypertension - Hypothyroidism Assessment: This is a 73 y.o. female with a past medical history of hypertension, hyperlipidemia, kidney transplant, hypothyroidism, morbid obesity, and end-stage renal disease who presents with lower abdominal pain on May 09. The pain was nonradiating and associated with nausea, diarrhea, and poor appetite. The patient visited [facility] urgent care on May 09 for unprovoked onset of persisting symptoms except with the exception of diarrhea for the past days. The patient reported experiencing urinary retention, constipation, and fever initially for 2 days, then it subsided on its own. CT abdomen revealed diverticulitis with air in the retroperitoneum, findings suggestive of abscess, cholestasis, and small hiatal hernia. Chest X-ray showed no acute findings, and HIDA scan showed nonvisualization of the gallbladder suggestive of cystic duct obstruction. Repeat CT abdomen on May 15 showed moderate fat stranding and induration of the central mesentery, with a 6.5 by 6.2 cm collection of air and minimal fluid suggestive of acute diverticulitis with rupture and associated abscess. The patient underwent IR drainage of the pelvic abscess on July 16. Culture revealed E. coli and Proteus mirabilis, both sensitive to ANCEF and Unison. The patient has been on ceftriaxone and Flagyl. Plan: - can switch to Unasyn - Monitor drainage and consider additional IR drainage or surgical I&D if necessary - post IR drainage CT suggests persistence of a large abscess, concern being that IV antibiotics may not be sufficient to clear infection or penetrate an abscess this size (expected around 250cc, only 30cc drained). - Discuss the need for extended IV antibiotic therapy, potentially 30 days with follow up CT abd pelvis afterwards Isolation Precautions: standard Assessment and plan were discussed with the patient as written above. Plan is subject to change pending incorporation of new incoming information/diagnostics. Updates may be added as an addendum at the bottom (OR TOP) of this note. Thank you for the interesting consult. ID will continue to follow. Please contact Infectious Disease for any questions or concerns. Quincy Hurst M.D. [facility] Electronically signed by: Quincy Hurst MD, 05/17/2024 - History: The patient's chart and medications were reviewed in detail, and the patient was seen and examined. History obtained from the patient. Vane Zhao is a 73 y.o. female with a past medical history of hypertension, hyperlipidemia, kidney transplant, hypothyroidism, morbid obesity, and end-stage renal disease who presents with lower abdominal pain on May 09. This was associated with nausea, diarrhea, poor appetite, urinary retention, con stipation, and fever initially for 2 days which subsided on its own. Negative for chest pain, cough, or dyspnea. Review of Systems: A complete 10 system review of systems was completed and negative except as noted in the HPI or here. - CONSTITUTIONAL: Denies weight loss, fever and chills. - HEENT: Denies changes in vision and hearing. - RESPIRATORY: Denies SOB and cough. - CV: Denies palpitations and CP. - GI: Denies abdominal pain, nausea, vomiting and diarrhea. - : Denies dysuria and urinary frequency. - MSK: Denies myalgia and joint pain. - SKIN: Denies rash and pruritus. - NEUROLOGICAL: Denies headache and syncope. - PSYCHIATRIC: Denies recent changes in mood. Denies anxiety and depression. Past Medical History: Diagnosis Date - Hypertension - Hyperlipidemia - Kidney transplant - Hypothyroidism - Morbid obesity - End-stage renal disease Past Surgical History: History reviewed. No pertinent surgical history. Home Medications: Prior to Admission medications: | Medication | Sig | |-|-| | Vitamin A | OTC agent, Take 1 tablet daily | | Cholecalciferol | OTC agent, Take 1 tablet daily | | Holbrook-3 | OTC agent, Take 1 tablet daily | | Levothyroxine | 50 mcg, Take 1 tablet daily | | Lisinopril | 10 mg, Take 1 tablet daily | | Atenolol | 25 mg, Take 1 tablet daily | Allergies: No Known Allergies Family History: - Prostate cancer, Father - Diabetes, Sister - Prostate cancer, Brother Social History: - Marital status: , spouse name not on file - Number of children: Not on file - Smoking status: Never - Smokeless tobacco: Never - Vaping status: Never Used - Alcohol use: Never - Drug use: Never - Sexual activity: Not Currently Objective: Vital Signs on Arrival: - Temp: 36.3C (97.4F) BP: 138/51 - Pulse: 94 - Resp: 18 - SpO2: 98% on room air Most Recent Vital Signs: - Temp: 36.5C (97.7F) BP: 138/51 - Pulse: 94 - Resp: 18 - SpO2: 98% on room air Admission Weight: 85 kg (187 lb), BMI: 29.3 kg/m Physical Exam: - General: Alert, awake, obese, tachycardic. NAD. - Neck: Supple. No masses. - HEENT: PERRL. Normal lids and conjunctiva. Moist mucous membranes. Oropharynx without lesions, exudates, or excessive erythema. Normal appearance of the external aspects of the nose and ears. - Heart: Regular rhythm, normal rate. No murmur. No lower extremity edema. - Lungs: Normal respiratory effort. Clear to auscultation bilaterally. No wheezes, no crackles. - Abdomen: Tender in the left lower quadrant with a drain in place, and seropurulent drainage. - Msk: No digital cyanosis. Normal strength and tone in all 4 limbs. - Skin: Warm and dry, with no rashes. - Neuro: Alert. No facial droop or slurred speech. Extra-ocular movements intact. Sensation intact to soft touch in all 4 limbs. - Psych: Appropriate mood. Full affect. Oriented to person, place, time, and situation. Diagnostic Studies: Available diagnostic studies were reviewed personally. Pertinent Imaging: - CT Abdomen, 05/09/2024: Diverticulitis with air in the retroperitoneum, suggestive of abscess, cholestasis, and small hiatal hernia. - Chest X-ray: No acute findings, no cardiopulmonary disease. - HIDA Scan: Nonvisualization of gallbladder, suggestive of cystic duct obstruction. - Repeat CT Abdomen, 05/15/2024: Moderate fat stranding and induration of the central mesentery, with a 6.5x6.2 cm air and fluid collection, suggestive of diverticulitis with rupture. - Drainage cultures: 07/16/2024: E. coli and Proteus mirabilis, both sensitive to ANCEF and Unison. - Plan discussed with: Patient QUINCY HURST MD May 17, 2024 09:46"
[2024-05-17] MEDS: INFLUENZA TRIVALENT 2024-2025 0.5 ML INJ IM ONE (11:13)
[2024-05-17] MEDS: AMPICILLIN & SULBACTAM SODIUM 3 GM in SODIUM CHL 0.9% 100 ML IV SCH (13:34)
--- NOTE | 2024-05-17 16:33 | DVHPN2 ---
Progress Note - Dictate Date Seen: May 17, 2024 Medical Necessity Reason Pt with a Central, PICC or Fol: No Subjective Patient was seen and evaluated in follow up. Patient reports her abdominal pain is improving. Patient endorses feeling better since admission. Patient has minimal drainage noted in the tubing of the PEG tail catheter. Patient is encouraged to use IS while awake. vital signs Vital Sign Date Time Temp Pulse Resp B/P (MAP) Pulse Ox O2 Delivery O2 Flow Rate FiO2 05/17/24 11:20 75 16 133/58 05/17/24 09:27 98.0 99 98.0 05/17/24 08:00 Room Air* 0 21 Total Intake and Output 05/16/24 05/16/24 05/17/24 15:00 23:00 07:00 Intake Total 50 ml 400 ml 100 ml Balance 50 ml 400 ml 100 ml medications Current Medications Medications Dose Ordered Sig/Lanette Route Start Time Stop Time Status Last Admin Dose Admin Atenolol 25 mg BID PO 05/10/24 10:00 Hold 05/10/24 21:38 25 MG Levothyroxine Sodium 125 mcg QAM@0600 PO 05/10/24 06:00 05/17/24 05:29 125 MCG Atorvastatin Calcium 40 mg HS PO 05/10/24 22:00 05/16/24 21:52 40 MG Acetaminophen/ Hydrocodone Bitart 1 tab Q4HP PRN PO 05/09/24 23:00 05/15/24 00:27 1 TAB Ondansetron HCl 4 mg Q4HP PRN IV 05/09/24 23:00 Hold Acetaminophen 650 mg Q6HP PRN PO 05/09/24 23:00 05/10/24 09:30 650 MG Nitroglycerin 0.4 mg Q5MINP PRN SL 05/09/24 23:00 Morphine Sulfate 2 mg Q30M PRN IV 05/09/24 23:00 Enoxaparin Sodium 130 mg Q12HR SC 05/10/24 10:00 UNV Sodium Chloride 1,000 ml @ 100 mls/hr Q10H IV 05/10/24 13:15 05/16/24 19:15 100 MLS/HR Pantoprazole Sodium 40 mg DAILY IV 05/11/24 10:00 05/17/24 09:53 40 MG Baclofen 5 mg Q8HP PRN PO 05/12/24 19:15 Nifedipine 10 mg Q6HR PO 05/13/24 18:00 05/17/24 03:43 10 MG Metoprolol Succinate 25 mg TID PO 05/13/24 14:00 05/17/24 06:07 25 MG Lisinopril 40 mg DAILY PO 05/14/24 10:00 05/17/24 09:54 40 MG Amiodarone HCl 200 mg Q12HR PO 05/15/24 10:00 05/17/24 09:53 200 MG Rivaroxaban 20 mg QPM PO 05/15/24 18:00 05/16/24 18:49 20 MG Hydromorphone HCl 0.25 mg Q4HPRN PRN IV 05/15/24 16:15 05/17/24 10:50 0.25 MG Ampicillin Sodium/ Sulbactam Sodium 3 gm/Sodium Chloride 100 ml @ 100 mls/hr Q6H IV 05/17/24 10:00 objective GENERAL: Awake, alert, oriented. Morbidly obese. LUNGS: Clear. CARDIOVASCULAR: Tachycardic. ABDOMEN: Soft, tender in the left lower quadrant, nondistended, bowel sounds present all 4 quadrants, no guarding. laboratory and microbiology Laboratory Tests 05/13/24 20:23 05/13/24 19:47 Test 05/13/24 19:47 Range/Units Serum Glucose 97 74-106 mg/dL Problem List Atrial fibrillation with rapid ventricular response. Acute diverticulitis with microperforation. Morbid obesity. Profound leukocytosis. Acute abdominal pain. Elevated troponin. Hypokalemia. UTI. Morbid obesity. Diarrhea. Hypertension. Hypothyroidism. Assessment/Plan Continued all current supportive medical care. Morphine and [place] for pain management. Amiodarone. Lipitor, Metoprolol. IV antibiotics as ordered. GI prophylactics. Lisinopril, Nifedipine. Additional plan as per the hospital course. Dietary Evaluation Review Comments: 1) Advance pt diet when medically feasible to a [id number]/[id number] diet 2) Continue current plan of care Expected Outcomes/Goals: F/U in 3-5 days Plan discussed with: Patient TRESA MCFARLANE MD May 17, 2024 11:56
--- NOTE | 2024-05-17 21:18 | DVHPN2 ---
Consult Progress Note Date Seen: May 17, 2024 Subjective Patient reports: Feels better (some abdominal pain , 1 bowel movement in last 24 hours , no drain in place, obese ) Objective vital signs Vital Sign Date Time Temp Pulse Resp B/P (MAP) Pulse Ox O2 Delivery O2 Flow Rate FiO2 05/17/24 19:00 89 19 129/57 05/17/24 17:00 97.7 95 97.7 05/17/24 08:00 Room Air* 0 21 Total Intake and Output 05/16/24 05/16/24 05/17/24 15:00 23:00 07:00 Intake Total 50 ml 400 ml 100 ml Balance 50 ml 400 ml 100 ml medications Current Medications Medications Dose Ordered Sig/Lanette Route Start Time Stop Time Status Last Admin Dose Admin Atenolol 25 mg BID PO 05/10/24 10:00 Hold 05/10/24 21:38 25 MG Levothyroxine Sodium 125 mcg QAM@0600 PO 05/10/24 06:00 05/17/24 05:29 125 MCG Atorvastatin Calcium 40 mg HS PO 05/10/24 22:00 05/16/24 21:52 40 MG Acetaminophen/ Hydrocodone Bitart 1 tab Q4HP PRN PO 05/09/24 23:00 05/17/24 14:48 1 TAB Ondansetron HCl 4 mg Q4HP PRN IV 05/09/24 23:00 Hold Acetaminophen 650 mg Q6HP PRN PO 05/09/24 23:00 05/10/24 09:30 650 MG Nitroglycerin 0.4 mg Q5MINP PRN SL 05/09/24 23:00 Morphine Sulfate 2 mg Q30M PRN IV 05/09/24 23:00 Enoxaparin Sodium 130 mg Q12HR SC 05/10/24 10:00 UNV Sodium Chloride 1,000 ml @ 100 mls/hr Q10H IV 05/10/24 13:15 05/17/24 16:02 100 MLS/HR Pantoprazole Sodium 40 mg DAILY IV 05/11/24 10:00 05/17/24 09:53 40 MG Baclofen 5 mg Q8HP PRN PO 05/12/24 19:15 Nifedipine 10 mg Q6HR PO 05/13/24 18:00 05/17/24 18:29 10 MG Metoprolol Succinate 25 mg TID PO 05/13/24 14:00 05/17/24 14:43 25 MG Lisinopril 40 mg DAILY PO 05/14/24 10:00 05/17/24 09:54 40 MG Amiodarone HCl 200 mg Q12HR PO 05/15/24 10:00 05/17/24 09:53 200 MG Rivaroxaban 20 mg QPM PO 05/15/24 18:00 05/17/24 18:15 20 MG Hydromorphone HCl 0.25 mg Q4HPRN PRN IV 05/15/24 16:15 05/17/24 18:30 0.25 MG Ampicillin Sodium/ Sulbactam Sodium 3 gm/Sodium Chloride 100 ml @ 100 mls/hr Q6H IV 05/17/24 10:00 05/17/24 16:00 100 MLS/HR Physical Exam: - General: Alert, awake, obese, tachycardic. NAD. - Neck: Supple. No masses. - HEENT: PERRL. Normal lids and conjunctiva. Moist mucous membranes. Oropharynx without lesions, exudates, or excessive erythema. Normal appearance of the external aspects of the nose and ears. - Heart: Regular rhythm, normal rate. No murmur. No lower extremity edema. - Lungs: Normal respiratory effort. Clear to auscultation bilaterally. No wheezes, no crackles. - Abdomen: Tender in the left lower quadrant where drain was inserted as well as bloating - Msk: No digital cyanosis. Normal strength and tone in all 4 limbs. - Skin: Warm and dry, with no rashes. - Neuro: Alert. No facial droop or slurred speech. Extra-ocular movements intact. Sensation intact to soft touch in all 4 limbs. - Psych: Appropriate mood. Full affect. Oriented to person, place, time, and situation. laboratory and microbiology Laboratory Tests 05/13/24 20:23 05/13/24 19:47 Test 05/13/24 19:47 Range/Units Serum Glucose 97 74-106 mg/dL Problem List/Assessment/Plan Problems(with codes): (1) Atrial fibrillation (2) Hiatal hernia (3) Cholelithiasis (4) Urinary tract infection (5) Diverticulitis (6) Elevated LFTs (7) Non-STEMI (non-ST elevated myocardial infarction) (8) Elevated brain natriuretic peptide (BNP) level (9) Diverticulitis of intestine with perforation and abscess Problem List/Assessment/Plan ID Problem List: - Acute diverticulitis - Diverticular abscess - Acute abdominal pain UTI - Elevated troponin - Hypokalemia - Morbid obesity - Diarrhea - Hypertension - Hypothyroidism Assessment: This is a 73 y.o. female with a past medical history of hypertension, hyperlipidemia, kidney transplant, hypothyroidism, morbid obesity, and end-stage renal disease who presents with lower abdominal pain on May 09. The pain was nonradiating and associated with nausea, diarrhea, and poor appetite. The patient visited [facility] urgent care on May 09 for unprovoked onset of persisting symptoms except with the exception of diarrhea for the past days. The patient reported experiencing urinary retention, constipation, and fever initially for 2 days, then it subsided on its own. CT abdomen revealed diverticulitis with air in the retroperitoneum, findings suggestive of abscess, cholestasis, and small hiatal hernia. Chest X-ray showed no acute findings, and HIDA scan showed nonvisualization of the gallbladder suggestive of cystic duct obstruction. Repeat CT abdomen on May 15 showed moderate fat stranding and induration of the central mesentery, with a 6.5 by 6.2 cm collection of air and minimal fluid suggestive of acute diverticulitis with rupture and associated abscess. The patient underwent IR drainage of the pelvic abscess on July 16. Culture revealed E. coli and Proteus mirabilis, both sensitive to ANCEF and Unison. The patient has been on ceftriaxone and Flagyl. Plan: - can switch to Unasyn - Monitor drainage and consider additional IR drainage or surgical I&D if necessary - post IR drainage CT suggests persistence of a large abscess, concern being that IV antibiotics may not be sufficient to clear infection or penetrate an abscess this size (expected around 250cc, only 30cc drained). - Discuss the need for extended IV antibiotic therapy, potentially 30 days with follow up CT abd pelvis afterwards Isolation Precautions: standard Assessment and plan were discussed with the patient as written above. Plan is subject to change pending incorporation of new incoming information/diagnostics. Updates may be added as an addendum at the bottom (OR TOP) of this note. Thank you for the interesting consult. ID will continue to follow. Please contact Infectious Disease for any questions or concerns. Quincy Wooten M.D. [facility] Plan discussed with: Other Dietary Evaluation Review Comments: 1) Advance pt diet when medically feasible to a [id number]/2gNa diet 2) Continue current plan of care Expected Outcomes/Goals: F/U in 3-5 days QUINCY WOOTEN MD May 17, 2024 21:18
[2024-05-18] VITALS (8 sets, daily range): BP systolic 114–159; BP diastolic 53–72; PULSE 72–91; RESP 17–19; TEMP 97.8–98.7; O2SAT 92–98
[2024-05-18 08:15] LABS: Basophils # (auto) 0.1 10 ^3/uL (0-0.2); Eosinophils # (auto) 0.5 10 ^3/uL (0-0.8); Hemoglobin 11.4 g/dL (12.2-16.2); Monocytes # (auto) 0.9 10 ^3/uL (0-1.3)
[2024-05-18 08:17] LABS: Basophils % (auto) 1.1 % (0.0-2.0); Eosinophils % (auto) 3.9 % (0.0-7.0); Hematocrit 35.7 % (36.0-46.0); Lymphocytes # (auto) 1.6 10 ^3/uL (0.4-5.4); Lymphocytes % (auto) 12.5 % (10.0-50.0); Mean Corpuscular Hemoglobin 29.2 pg (28.0-32.0); Mean Corpuscular Hgb Conc. 31.9 g/dL (32.0-36.0); Mean Corpuscular Volume 91.5 fL (80.0-100.0); Neutrophils # (auto) 9.8 10 ^3/uL (1.6-8.6); Neutrophils % (auto) 75.5 % (37.0-80.0); Nucleated Red Blood Cells % 0.1 %; Platelet Count (auto) 727 10^3/uL (140-450); Red Cell Distribution Width 16.1 % (11.8-14.3)
--- NOTE | 2024-05-18 08:32 | DVHPN2 ---
Progress Note - Dictate Date Seen: May 18, 2024 Medical Necessity Reason Pt with a Central, PICC or Fol: No Subjective Abdominal pain has improved Patient is having bowel movements Minimal drainage 75 ml noted in the tubing of the PEG tail catheter vital signs Vital Sign Date Time Temp Pulse Resp B/P (MAP) Pulse Ox O2 Delivery O2 Flow Rate FiO2 05/18/24 08:10 Room Air* 0 21 05/18/24 06:03 80 129/54 05/18/24 05:00 97.8 19 92 97.8 Total Intake and Output 05/17/24 05/17/24 05/18/24 15:00 23:00 07:00 Intake Total 200 ml 1100 ml Output Total 600 ml 400 ml Balance -400 ml 700 ml medications Current Medications Medications Dose Ordered Sig/Lanette Route Start Time Stop Time Status Last Admin Dose Admin Atenolol 25 mg BID PO 05/10/24 10:00 Hold 05/10/24 21:38 25 MG Levothyroxine Sodium 125 mcg QAM@0600 PO 05/10/24 06:00 05/18/24 05:57 125 MCG Atorvastatin Calcium 40 mg HS PO 05/10/24 22:00 05/17/24 22:03 40 MG Acetaminophen/ Hydrocodone Bitart 1 tab Q4HP PRN PO 05/09/24 23:00 05/18/24 04:16 1 TAB Ondansetron HCl 4 mg Q4HP PRN IV 05/09/24 23:00 Hold Acetaminophen 650 mg Q6HP PRN PO 05/09/24 23:00 05/10/24 09:30 650 MG Nitroglycerin 0.4 mg Q5MINP PRN SL 05/09/24 23:00 Morphine Sulfate 2 mg Q30M PRN IV 05/09/24 23:00 Enoxaparin Sodium 130 mg Q12HR SC 05/10/24 10:00 UNV Sodium Chloride 1,000 ml @ 100 mls/hr Q10H IV 05/10/24 13:15 05/17/24 22:02 100 MLS/HR Pantoprazole Sodium 40 mg DAILY IV 05/11/24 10:00 05/17/24 09:53 40 MG Baclofen 5 mg Q8HP PRN PO 05/12/24 19:15 Nifedipine 10 mg Q6HR PO 05/13/24 18:00 05/18/24 06:01 10 MG Metoprolol Succinate 25 mg TID PO 05/13/24 14:00 05/18/24 06:03 25 MG Lisinopril 40 mg DAILY PO 05/14/24 10:00 05/17/24 09:54 40 MG Amiodarone HCl 200 mg Q12HR PO 05/15/24 10:00 05/17/24 22:03 200 MG Rivaroxaban 20 mg QPM PO 05/15/24 18:00 05/17/24 18:15 20 MG Hydromorphone HCl 0.25 mg Q4HPRN PRN IV 05/15/24 16:15 05/17/24 23:04 0.25 MG Ampicillin Sodium/ Sulbactam Sodium 3 gm/Sodium Chloride 100 ml @ 100 mls/hr Q6H IV 05/17/24 10:00 05/18/24 03:51 100 MLS/HR objective General examination- No acute distress , was able to ambulate to bathroom;morbidly obese female HEENT- PEERLA, EOMI intact Heart S1-S2 audible, rate and rhythm regular, no murmur Lungs- CTAB, no wheeze or rhonchi Abdomen- distended, lower abdominal tenderness, bowel sound+ Musculoskeletal-no acute joint swelling or tenderness or redness Lower extremity- no leg edema, but pain in the left lateral thigh Neurological- cranial nerves intact, no acute dysarthria or dysphagia Skin- no acute rash or purpura laboratory and microbiology Laboratory Tests 05/18/24 07:53 05/13/24 19:47 Test 05/13/24 19:47 Range/Units Serum Glucose 97 74-106 mg/dL Problems(with codes): (1) Diverticulitis of intestine with perforation and abscess (2) Urinary tract infection (3) Cholelithiasis Prognosis Plan ID consult appreciated Continue IV antibiotics Ice chips water Start IV Clinimix Patient may need IV TPN and a PICC line for IV antibiotics Radiology re-evaluation to see if more drainage can be obtained and pigtail reposition Dietary Evaluation Review Comments: 1) Advance pt diet when medically feasible to a [id number]/[id number] diet 2) Continue current plan of care Expected Outcomes/Goals: F/U in 3-5 days Plan discussed with: Other (Nurse) MITCHELL DEMPSEY MD May 18, 2024 08:32
[2024-05-18 08:35] LABS: INR 1.32 (0.9-1.15); Partial Thromboplastin Time 32.6 SEC (24.5-34.5); Prothrombin Time 13.7 sec (9.3-11.8)
[2024-05-18 08:57] LABS: Platelet Estimate Increased
--- NOTE | 2024-05-18 10:08 | DVHPN2 ---
Progress Note Date Seen: May 18, 2024 Medical Necessity Reason Pt with a Central, PICC or Fol: No Objective vital signs Vital Sign Date Time Temp Pulse Resp B/P (MAP) Pulse Ox O2 Delivery O2 Flow Rate FiO2 05/18/24 09:59 77 18 136/69 05/18/24 08:42 98.7 96 98.7 05/18/24 08:10 Room Air* 0 21 Total Intake and Output 05/17/24 05/17/24 05/18/24 15:00 23:00 07:00 Intake Total 200 ml 1100 ml Output Total 600 ml 400 ml Balance -400 ml 700 ml medications Current Medications Medications Dose Ordered Sig/Lanette Route Start Time Stop Time Status Last Admin Dose Admin Atenolol 25 mg BID PO 05/10/24 10:00 Hold 05/10/24 21:38 25 MG Levothyroxine Sodium 125 mcg QAM@0600 PO 05/10/24 06:00 05/18/24 05:57 125 MCG Atorvastatin Calcium 40 mg HS PO 05/10/24 22:00 05/17/24 22:03 40 MG Acetaminophen/ Hydrocodone Bitart 1 tab Q4HP PRN PO 05/09/24 23:00 05/18/24 04:16 1 TAB Ondansetron HCl 4 mg Q4HP PRN IV 05/09/24 23:00 Hold Acetaminophen 650 mg Q6HP PRN PO 05/09/24 23:00 05/10/24 09:30 650 MG Nitroglycerin 0.4 mg Q5MINP PRN SL 05/09/24 23:00 Morphine Sulfate 2 mg Q30M PRN IV 05/09/24 23:00 Enoxaparin Sodium 130 mg Q12HR SC 05/10/24 10:00 UNV Sodium Chloride 1,000 ml @ 100 mls/hr Q10H IV 05/10/24 13:15 05/17/24 22:02 100 MLS/HR Pantoprazole Sodium 40 mg DAILY IV 05/11/24 10:00 05/18/24 09:57 40 MG Baclofen 5 mg Q8HP PRN PO 05/12/24 19:15 Nifedipine 10 mg Q6HR PO 05/13/24 18:00 05/18/24 06:01 10 MG Metoprolol Succinate 25 mg TID PO 05/13/24 14:00 05/18/24 06:03 25 MG Lisinopril 40 mg DAILY PO 05/14/24 10:00 05/18/24 09:39 40 MG Amiodarone HCl 200 mg Q12HR PO 05/15/24 10:00 05/18/24 09:39 200 MG Rivaroxaban 20 mg QPM PO 05/15/24 18:00 05/17/24 18:15 20 MG Hydromorphone HCl 0.25 mg Q4HPRN PRN IV 05/15/24 16:15 05/18/24 09:59 0.25 MG Ampicillin Sodium/ Sulbactam Sodium 3 gm/Sodium Chloride 100 ml @ 100 mls/hr Q6H IV 05/17/24 10:00 05/18/24 09:58 100 MLS/HR laboratory and microbiology Laboratory Tests 05/18/24 07:53 05/13/24 19:47 Test 05/13/24 19:47 Range/Units Serum Glucose 97 74-106 mg/dL Microbiology Date/Time Source Procedure Growth Status 05/15/24 13:15 Aspirate Gram Stain - Final Resulted 05/15/24 13:15 Body Fluid Culture - Preliminary Escherichia coli Proteus mirabilis Resulted 05/09/24 21:14 Voided Urine Urine Culture - Final Complete Problem List/Assessment/Plan Problem List/Assessment/Plan AFEBRILE VSS ABD SOFT TENDER NO REBOUND FLATUS + WBC TRENDING DOWN IR DRAINAGE OF INTRAABD ABSCESS DONE CONTINUE CLOSE OBSERVATION ALLOW SIPS OF WATER Plan discussed with: Patient Dietary Evaluation Review Comments: 1) Advance pt diet when medically feasible to a [id number]/2gNa diet 2) Continue current plan of care Expected Outcomes/Goals: F/U in 3-5 days CATALINO DEMPSEY MD May 18, 2024 10:08
--- NOTE | 2024-05-18 11:30 | DVH ---
Exam: CT CT AB PEL WO CON-NO ORAL OR IV History: RE-EVALUATE EXISTING PELVIC DRAIN Comparison Study: CT CT AB PEL WO CON-NO ORAL OR IV on DOS: 05/14/24, CT CT AB PEL WITH IV CON ONLY o n DOS: 05/11/24, CT CT AB PEL WO CON-NO ORAL OR IV on DOS: 05/09/24 Technique: Multidetector spiral CT of the abdomen and pelvis was performed from lung bases to pubic symphysis. Imaging was performed without IV contrast. Axial, coronal and sagittal multiplanar reform ats were obtained from the axial data set by the technologist. Radiation dose : Abdomen/Pelvis: CTDIvol 27 mGy, DLP 1421.29 mGy*cm. Findings: Evaluation of solid organs is limited due to lack of intravenous contrast use. Lung Bases: No acute or significant lung base finding. Normal heart size. No pleural or pericardial effusion. Liver: The liver is normal in size. No focal lesions. Gallbladder and biliary Tree: Cholelithiasis noted without secondary findings of cholecystitis or lizz iary obstruction. Spleen: Unremarkable Pancreas: The pancreas is grossly normal in appearance. Adrenal Glands: Unremarkable Kidneys: There is an exophytic likely hyperdense cyst projecting off the upper pole of the right kidn ey which is subcentimeter. No hydronephrosis or nephrolithiasis. Bladder: Grossly unremarkable for degree of distention. Bowel: The stomach is grossly normal in appearance. There is again sigmoid diverticulitis noted with an adjacent abscess. There is a pigtail catheter at the anterior margin of the abscess, not definitel y within the abscess. Abscess measures up to 85 x 75 mm The appendix is not visualized; however, no secondary findings of acute appendicitis identified. Ascites: Absent Lymphadenopathy: No mesenteric, retroperitoneal or periportal lymphadenopathy. Abdominal wall and Mesentery: Pericolonic abscess as described above. Vasculature: The visualized abdominal aorta is normal in size and caliber. Evaluation of abdominal a nd pelvic vessels is limited due to lack of intravenous contrast. Pelvic Organs: Unremarkable Musculoskeletal: No aggressive focal bony lesions, acute fractures or dislocation. IMPRESSION: 1. Acute diverticulitis with an adjacent pericolonic abscess measuring up to 85 mm. Interval placeme nt of a pigtail catheter which is not definitely within the collection. Collection has not significa ntly decreased in size. Recommend repositioning or placement of a new drain. Radiation optimization: All CT scans at this facility use at least one of these dose optimization [place] hniques: Automated exposure control mA and/or kV adjustment per patient size (includes targeted exams where dose is matched to clinical indication) or iterative reconstruction. HS:Y
--- NOTE | 2024-05-18 13:31 | DVHPN2 ---
Progress Note - Dictate Date Seen: May 18, 2024 Medical Necessity Reason Pt with a Central, PICC or Fol: No Subjective Patient was seen and evaluated in follow up. Patient is c/o generalized pain. Patient is having BMs, abdominal pain is improving. There is minimal drainage, approx. 75 ml in the tubing of the PEG tail catheter. CT ABD PEL shows acute diverticulitis with an adjacent pericolonic abscess measuring up to 85 mm, interval placement of a pigtail catheter which is not definitely within the collection, collection has not significantly decreased in size. WBC 13. vital signs Vital Sign Date Time Temp Pulse Resp B/P (MAP) Pulse Ox O2 Delivery O2 Flow Rate FiO2 05/18/24 10:29 70 18 126/65 05/18/24 08:42 98.7 96 98.7 05/18/24 08:10 Room Air* 0 21 Total Intake and Output 05/17/24 05/17/24 05/18/24 15:00 23:00 07:00 Intake Total 200 ml 1100 ml Output Total 600 ml 400 ml Balance -400 ml 700 ml medications Current Medications Medications Dose Ordered Sig/Lanette Route Start Time Stop Time Status Last Admin Dose Admin Atenolol 25 mg BID PO 05/10/24 10:00 Hold 05/10/24 21:38 25 MG Levothyroxine Sodium 125 mcg QAM@0600 PO 05/10/24 06:00 05/18/24 05:57 125 MCG Atorvastatin Calcium 40 mg HS PO 05/10/24 22:00 05/17/24 22:03 40 MG Acetaminophen/ Hydrocodone Bitart 1 tab Q4HP PRN PO 05/09/24 23:00 05/18/24 04:16 1 TAB Ondansetron HCl 4 mg Q4HP PRN IV 05/09/24 23:00 Hold Acetaminophen 650 mg Q6HP PRN PO 05/09/24 23:00 05/10/24 09:30 650 MG Nitroglycerin 0.4 mg Q5MINP PRN SL 05/09/24 23:00 Morphine Sulfate 2 mg Q30M PRN IV 05/09/24 23:00 Enoxaparin Sodium 130 mg Q12HR SC 05/10/24 10:00 UNV Sodium Chloride 1,000 ml @ 100 mls/hr Q10H IV 05/10/24 13:15 05/18/24 11:55 100 MLS/HR Pantoprazole Sodium 40 mg DAILY IV 05/11/24 10:00 05/18/24 09:57 40 MG Baclofen 5 mg Q8HP PRN PO 05/12/24 19:15 Nifedipine 10 mg Q6HR PO 05/13/24 18:00 05/18/24 06:01 10 MG Metoprolol Succinate 25 mg TID PO 05/13/24 14:00 05/18/24 06:03 25 MG Lisinopril 40 mg DAILY PO 05/14/24 10:00 05/18/24 09:39 40 MG Amiodarone HCl 200 mg Q12HR PO 05/15/24 10:00 05/18/24 09:39 200 MG Rivaroxaban 20 mg QPM PO 05/15/24 18:00 05/17/24 18:15 20 MG Hydromorphone HCl 0.25 mg Q4HPRN PRN IV 05/15/24 16:15 05/18/24 09:59 0.25 MG Ampicillin Sodium/ Sulbactam Sodium 3 gm/Sodium Chloride 100 ml @ 100 mls/hr Q6H IV 05/17/24 10:00 05/18/24 09:58 100 MLS/HR objective GENERAL: Awake, alert, oriented. Morbidly obese. LUNGS: Clear. CARDIOVASCULAR: Tachycardic. ABDOMEN: Soft, tender in the left lower quadrant, nondistended, bowel sounds present all 4 quadrants, no guarding. laboratory and microbiology Laboratory Tests 05/18/24 07:53 05/13/24 19:47 Test 05/13/24 19:47 Range/Units Serum Glucose 97 74-106 mg/dL Problem List Atrial fibrillation with rapid ventricular response. Acute diverticulitis with microperforation. Morbid obesity. Profound leukocytosis. Acute abdominal pain. Elevated troponin. Hypokalemia. UTI. Morbid obesity. Diarrhea. Hypertension. Hypothyroidism. Assessment/Plan Continued all current supportive medical care. Morphine and [place] for pain management. Amiodarone. Lipitor, Metoprolol. IV antibiotics as ordered. GI prophylactics. Lisinopril, Nifedipine. Additional plan as per the hospital course. Dietary Evaluation Review Comments: 1) Advance pt diet when medically feasible to a [id number]/[id number] diet 2) Continue current plan of care Expected Outcomes/Goals: F/U in 3-5 days Plan discussed with: Patient TRESA MCFARLANE MD May 18, 2024 12:25
[2024-05-18 13:33] LABS: Alanine Aminotransferase 21 U/L (7-40); Albumin 3.1 g/dL (3.2-4.8); Alkaline Phosphatase 116 U/L (46-116); Anion Gap 9 (5-15); Aspartate Aminotransferase 23 U/L (13-40); BUN/Creatinine Ratio 12.5 (10.0-20.0); Blood Urea Nitrogen 8 mg/dL (9-23); Calcium 8.5 mg/dL (8.7-10.4); Carbon Dioxide 23 mmol/L (20-31); Chloride 108 mmol/L (98-107); Glucose 76 mg/dL (74-106); Magnesium 1.5 mg/dL (1.6-2.6); Potassium 3.9 mmol/L (3.5-5.1); Sodium 140 mmol/L (136-145)
[2024-05-18 13:34] LABS: Bilirubin, Total 0.2 mg/dL (0.2-1.0)
[2024-05-18] MEDS ORDERED: TPN PER PHARMACY 0 ML IV SCH (14:15)
[2024-05-18] MEDS: LIDOCAINE 1% (LOCAL ANESTH.) PF 5ml SDV ID ONE (15:00)
[2024-05-18] MEDS: MAGNESIUM SULFATE 1GM/100ML 100 ML IV SCH (15:29)
--- NOTE | 2024-05-18 16:11 | DVHPN2 ---
Consult Progress Note Date Seen: May 18, 2024 Subjective Patient reports: Feels better (75 cc additional drained) Objective vital signs Vital Sign Date Time Temp Pulse Resp B/P (MAP) Pulse Ox O2 Delivery O2 Flow Rate FiO2 05/18/24 14:45 114/53 05/18/24 14:43 82 05/18/24 13:09 97.9 17 95 97.9 05/18/24 08:10 Room Air* 0 21 Total Intake and Output 05/17/24 05/17/24 05/18/24 15:00 23:00 07:00 Intake Total 200 ml 1100 ml Output Total 600 ml 400 ml Balance -400 ml 700 ml medications Current Medications Medications Dose Ordered Sig/Lanette Route Start Time Stop Time Status Last Admin Dose Admin Atenolol 25 mg BID PO 05/10/24 10:00 Hold 05/10/24 21:38 25 MG Levothyroxine Sodium 125 mcg QAM@0600 PO 05/10/24 06:00 05/18/24 05:57 125 MCG Atorvastatin Calcium 40 mg HS PO 05/10/24 22:00 05/17/24 22:03 40 MG Acetaminophen/ Hydrocodone Bitart 1 tab Q4HP PRN PO 05/09/24 23:00 05/18/24 04:16 1 TAB Ondansetron HCl 4 mg Q4HP PRN IV 05/09/24 23:00 Hold Acetaminophen 650 mg Q6HP PRN PO 05/09/24 23:00 05/10/24 09:30 650 MG Nitroglycerin 0.4 mg Q5MINP PRN SL 05/09/24 23:00 Morphine Sulfate 2 mg Q30M PRN IV 05/09/24 23:00 Enoxaparin Sodium 130 mg Q12HR SC 05/10/24 10:00 UNV Sodium Chloride 1,000 ml @ 100 mls/hr Q10H IV 05/10/24 13:15 05/18/24 11:55 100 MLS/HR Pantoprazole Sodium 40 mg DAILY IV 05/11/24 10:00 05/18/24 09:57 40 MG Baclofen 5 mg Q8HP PRN PO 05/12/24 19:15 Nifedipine 10 mg Q6HR PO 05/13/24 18:00 05/18/24 14:45 10 MG Metoprolol Succinate 25 mg TID PO 05/13/24 14:00 05/18/24 14:43 25 MG Lisinopril 40 mg DAILY PO 05/14/24 10:00 05/18/24 09:39 40 MG Amiodarone HCl 200 mg Q12HR PO 05/15/24 10:00 05/18/24 09:39 200 MG Rivaroxaban 20 mg QPM PO 05/15/24 18:00 05/17/24 18:15 20 MG Hydromorphone HCl 0.25 mg Q4HPRN PRN IV 05/15/24 16:15 05/18/24 09:59 0.25 MG Ampicillin Sodium/ Sulbactam Sodium 3 gm/Sodium Chloride 100 ml @ 100 mls/hr Q6H IV 05/17/24 10:00 05/18/24 09:58 100 MLS/HR Amino Acids 0 ml @ 0 mls/hr PER PHARMACY IV 05/18/24 14:15 Amino Acids/ Electrolytes/ Dextrose 1,000 ml @ 41 mls/hr DAILY@2200 IV 05/18/24 22:00 05/19/24 21:59 Diagnostic Test (Pha) 1 strip Q6HR 05/19/24 00:00 Insulin Human Regular FOLLOW SLIDING SCALE Q6HR SC 05/19/24 00:00 Dextrose 50 ml UD IV 05/19/24 00:00 Magnesium Sulfate/ Dextrose 100 ml @ 100 mls/hr Q1HR IV 05/18/24 15:00 05/18/24 16:59 05/18/24 15:29 100 MLS/HR Sodium Chloride 10 ml QSHIFT@10,22 IV 05/18/24 22:00 PHYSICAL EXAM: - GENERAL: Alert and oriented x 3. No acute distress. Well-nourished. - EYES: EOMI. Anicteric. - HENT: Moist mucous membranes. No scleral icterus. No cervical lymphadenopathy. - LUNGS: Clear to auscultation bilaterally. No accessory muscle use. - CARDIOVASCULAR: Regular rate and rhythm. No murmur. No JVD. - ABDOMEN: Soft, non-tender and non-distended. No palpable masses. drain w/ purulent output - EXTREMITIES: No edema. Non-tender.?SKIN: No rashes or lesions. Warm. - NEUROLOGIC: No focal neurological deficits. CN II-XII grossly intact, but not individually tested. - PSYCHIATRIC: Cooperative. Appropriate mood and affect. laboratory and microbiology Laboratory Tests 05/18/24 07:53 Test 05/18/24 07:53 Range/Units Serum Glucose 76 74-106 mg/dL Problem List/Assessment/Plan Problem List/Assessment/Plan ID Problem List: - Acute diverticulitis - Diverticular abscess - Acute abdominal pain UTI - Elevated troponin - Hypokalemia - Morbid obesity - Diarrhea - Hypertension - Hypothyroidism Assessment: This is a 73 y.o. female with a past medical history of hypertension, hyperlipidemia, kidney transplant, hypothyroidism, morbid obesity, and end-stage renal disease who presents with lower abdominal pain on May 09. The pain was nonradiating and associated with nausea, diarrhea, and poor appetite. The patient visited [facility] urgent care on May 09 for unprovoked onset of persisting symptoms except with the exception of diarrhea for the past days. The patient reported experiencing urinary retention, constipation, and fever initially for 2 days, then it subsided on its own. CT abdomen revealed diverticulitis with air in the retroperitoneum, findings suggestive of abscess, cholestasis, and small hiatal hernia. Chest X-ray showed no acute findings, and HIDA scan showed nonvisualization of the gallbladder suggestive of cystic duct obstruction. Repeat CT abdomen on May 15 showed moderate fat stranding and induration of the central mesentery, with a 6.5 by 6.2 cm collection of air and minimal fluid suggestive of acute diverticulitis with rupture and associated abscess. The patient underwent IR drainage of the pelvic abscess on July 16. Culture revealed E. coli and Proteus mirabilis, both sensitive to ANCEF and Unison. The patient has been on ceftriaxone and Flagyl. Plan: Unasyn 12g every 24 hours continuously weekly cmp, cbc. fax to [phone] via picc until 06/15/24, then remove picc picc line care, home health, saline and heparin flush prn ID fu in 4 weeks. [id number] - Monitor drainage and consider additional IR drainage or surgical I&D if necessary - post IR drainage CT suggests persistence of a large abscess, concern being that IV antibiotics may not be sufficient to clear infection or penetrate an abscess this size (expected around 250cc, only 105cc drained). - Discuss the need for extended IV antibiotic therapy, potentially 30 days with follow up CT abd pelvis afterwards Isolation Precautions: standard Assessment and plan were discussed with the patient as written above. Plan is subject to change pending incorporation of new incoming information/diagnostics. Updates may be added as an addendum at the bottom (OR TOP) of this note. Thank you for the interesting consult. ID will continue to follow. Please contact Infectious Disease for any questions or concerns. Mellissa Jack Medical Plan discussed with: Patient Dietary Evaluation Review Comments: 1) Advance pt diet when medically feasible to a [id number]/2gNa diet 2) Continue current plan of care Expected Outcomes/Goals: F/U in 3-5 days QUINCY HURST MD May 18, 2024 16:11
--- NOTE | 2024-05-18 21:21 | DVHPN2 ---
Progress Note - Dictate Date Seen: May 17, 2024 Medical Necessity Reason Pt with a Central, PICC or Fol: No Subjective Patient was seen and evaluated in follow up. No acute events overnight. Patient reports feeling better. Abdominal pain continues to improve. Minimal drainage noted in tubing of the PEG tail catheter. vital signs Vital Sign Date Time Temp Pulse Resp B/P (MAP) Pulse Ox O2 Delivery O2 Flow Rate FiO2 05/18/24 18:18 130/74 05/18/24 17:29 70 18 05/18/24 17:26 98.7 94 98.7 05/18/24 08:10 Room Air* 0 21 Total Intake and Output 05/17/24 05/17/24 05/18/24 15:00 23:00 07:00 Intake Total 200 ml 1100 ml Output Total 600 ml 400 ml Balance -400 ml 700 ml medications Current Medications Medications Dose Ordered Sig/Lanette Route Start Time Stop Time Status Last Admin Dose Admin Atenolol 25 mg BID PO 05/10/24 10:00 Hold 05/10/24 21:38 25 MG Levothyroxine Sodium 125 mcg QAM@0600 PO 05/10/24 06:00 05/18/24 05:57 125 MCG Atorvastatin Calcium 40 mg HS PO 05/10/24 22:00 05/17/24 22:03 40 MG Acetaminophen/ Hydrocodone Bitart 1 tab Q4HP PRN PO 05/09/24 23:00 05/18/24 04:16 1 TAB Ondansetron HCl 4 mg Q4HP PRN IV 05/09/24 23:00 Hold Acetaminophen 650 mg Q6HP PRN PO 05/09/24 23:00 05/10/24 09:30 650 MG Nitroglycerin 0.4 mg Q5MINP PRN SL 05/09/24 23:00 Morphine Sulfate 2 mg Q30M PRN IV 05/09/24 23:00 Enoxaparin Sodium 130 mg Q12HR SC 05/10/24 10:00 UNV Sodium Chloride 1,000 ml @ 100 mls/hr Q10H IV 05/10/24 13:15 05/18/24 11:55 100 MLS/HR Pantoprazole Sodium 40 mg DAILY IV 05/11/24 10:00 05/18/24 09:57 40 MG Baclofen 5 mg Q8HP PRN PO 05/12/24 19:15 Nifedipine 10 mg Q6HR PO 05/13/24 18:00 05/18/24 18:18 10 MG Metoprolol Succinate 25 mg TID PO 05/13/24 14:00 05/18/24 14:43 25 MG Lisinopril 40 mg DAILY PO 05/14/24 10:00 05/18/24 09:39 40 MG Amiodarone HCl 200 mg Q12HR PO 05/15/24 10:00 05/18/24 09:39 200 MG Hydromorphone HCl 0.25 mg Q4HPRN PRN IV 05/15/24 16:15 05/18/24 16:59 0.25 MG Ampicillin Sodium/ Sulbactam Sodium 3 gm/Sodium Chloride 100 ml @ 100 mls/hr Q6H IV 05/17/24 10:00 05/18/24 18:29 100 MLS/HR Amino Acids 0 ml @ 0 mls/hr PER PHARMACY IV 05/18/24 14:15 Amino Acids/ Electrolytes/ Dextrose 1,000 ml @ 41 mls/hr DAILY@2200 IV 05/18/24 22:00 05/19/24 21:59 Diagnostic Test (Pha) 1 strip Q6HR 05/19/24 00:00 Insulin Human Regular FOLLOW SLIDING SCALE Q6HR SC 05/19/24 00:00 Dextrose 50 ml UD IV 05/19/24 00:00 Sodium Chloride 10 ml QSHIFT@10,22 IV 05/18/24 22:00 objective Physical exam: Vitals and nursing notes reviewed. General: In no acute distress, morbidly obese. HEENT: Normocephalic atraumatic, mucous membranes moist and pink. Neck: Cervical and supraclavicular nodes normal without enlargement. Pulmonary: Clear to auscultation and percussion bilaterally. Cardiac: RRR. No murmur. Abdomen: Soft, nondistended, bowel sounds present all 4 quadrants, no guarding. Musculoskeletal: No deformity. Neuro: Cranial nerves II through XII grossly intact, normal affect and speech, no focal motor deficits. Skin: Warm, dry, normal color and texture, no rash. laboratory and microbiology Laboratory Tests 05/18/24 07:53 Test 05/18/24 07:53 Range/Units Serum Glucose 76 74-106 mg/dL Problem List Acute diverticulitis Acute abdominal pain Elevated troponin Hypokalemia UTI Morbid obesity Assessment/Plan Continue current supportive medical care. Surgery, GI and Cardiology consults. S/p CT-guided drainage of abscess with IR 05/15. Purulent fluid aspirated and sent for analysis. Midline insertion pending. Patient will likely need IV antibiotics x [address] Luci Dumont. Also repeat CT in 1-2 weeks to reevaluate pelvic abscess with removal of pigtail drain at that time. Advised to use incentive spirometry. Xarelto 20 mg QPM. Amiodarone 200 mg BID. IV antibiotics. IVFs with NS at 100 mL/hr. Protonix 40 mg IV daily. Started on clear liquid diet. Pain management prn. Additional plan as per the hospital course. Dietary Evaluation Review Comments: 1) Advance pt diet when medically feasible to a [id number]/2gNa diet 2) Continue current plan of care Expected Outcomes/Goals: F/U in 3-5 days Plan discussed with: Other (RN) SMITHA MCFARLANE DO May 18, 2024 21:21
--- NOTE | 2024-05-18 21:22 | DVHPN2 ---
Progress Note - Dictate Date Seen: May 18, 2024 Medical Necessity Reason Pt with a Central, PICC or Fol: No Subjective Patient was seen and evaluated in follow up. No acute events overnight. Patient reports feeling better. Approx. 75 ml in the tubing of the PEG tail catheter. Abdominal pain is improved. Patient is having bowel movements. Repeated CT Abdomen Pelvis today reported acute diverticulitis with an adjacent pericolonic abscess measuring up to 85 mm, interval placement of a pigtail catheter which is not definitely within the collection, collection has not significantly decreased in size. WBC 13. vital signs Vital Sign Date Time Temp Pulse Resp B/P (MAP) Pulse Ox O2 Delivery O2 Flow Rate FiO2 05/18/24 18:18 130/74 05/18/24 17:29 70 18 05/18/24 17:26 98.7 94 98.7 05/18/24 08:10 Room Air* 0 21 Total Intake and Output 05/17/24 05/17/24 05/18/24 15:00 23:00 07:00 Intake Total 200 ml 1100 ml Output Total 600 ml 400 ml Balance -400 ml 700 ml medications Current Medications Medications Dose Ordered Sig/Lanette Route Start Time Stop Time Status Last Admin Dose Admin Atenolol 25 mg BID PO 05/10/24 10:00 Hold 05/10/24 21:38 25 MG Levothyroxine Sodium 125 mcg QAM@0600 PO 05/10/24 06:00 05/18/24 05:57 125 MCG Atorvastatin Calcium 40 mg HS PO 05/10/24 22:00 05/17/24 22:03 40 MG Acetaminophen/ Hydrocodone Bitart 1 tab Q4HP PRN PO 05/09/24 23:00 05/18/24 04:16 1 TAB Ondansetron HCl 4 mg Q4HP PRN IV 05/09/24 23:00 Hold Acetaminophen 650 mg Q6HP PRN PO 05/09/24 23:00 05/10/24 09:30 650 MG Nitroglycerin 0.4 mg Q5MINP PRN SL 05/09/24 23:00 Morphine Sulfate 2 mg Q30M PRN IV 05/09/24 23:00 Enoxaparin Sodium 130 mg Q12HR SC 05/10/24 10:00 UNV Sodium Chloride 1,000 ml @ 100 mls/hr Q10H IV 05/10/24 13:15 05/18/24 11:55 100 MLS/HR Pantoprazole Sodium 40 mg DAILY IV 05/11/24 10:00 05/18/24 09:57 40 MG Baclofen 5 mg Q8HP PRN PO 05/12/24 19:15 Nifedipine 10 mg Q6HR PO 05/13/24 18:00 05/18/24 18:18 10 MG Metoprolol Succinate 25 mg TID PO 05/13/24 14:00 05/18/24 14:43 25 MG Lisinopril 40 mg DAILY PO 05/14/24 10:00 05/18/24 09:39 40 MG Amiodarone HCl 200 mg Q12HR PO 05/15/24 10:00 05/18/24 09:39 200 MG Hydromorphone HCl 0.25 mg Q4HPRN PRN IV 05/15/24 16:15 05/18/24 16:59 0.25 MG Ampicillin Sodium/ Sulbactam Sodium 3 gm/Sodium Chloride 100 ml @ 100 mls/hr Q6H IV 05/17/24 10:00 05/18/24 18:29 100 MLS/HR Amino Acids 0 ml @ 0 mls/hr PER PHARMACY IV 05/18/24 14:15 Amino Acids/ Electrolytes/ Dextrose 1,000 ml @ 41 mls/hr DAILY@2200 IV 05/18/24 22:00 05/19/24 21:59 Diagnostic Test (Pha) 1 strip Q6HR 05/19/24 00:00 Insulin Human Regular FOLLOW SLIDING SCALE Q6HR SC 05/19/24 00:00 Dextrose 50 ml UD IV 05/19/24 00:00 Sodium Chloride 10 ml QSHIFT@10,22 IV 05/18/24 22:00 objective Physical exam: Vitals and nursing notes reviewed. General: In no acute distress, morbidly obese. HEENT: Normocephalic atraumatic, mucous membranes moist and pink. Neck: Cervical and supraclavicular nodes normal without enlargement. Pulmonary: Clear to auscultation and percussion bilaterally. Cardiac: RRR. No murmur. Abdomen: Soft, nondistended, bowel sounds present all 4 quadrants, no guarding. Musculoskeletal: No deformity. Neuro: Cranial nerves II through XII grossly intact, normal affect and speech, no focal motor deficits. Skin: Warm, dry, normal color and texture, no rash. laboratory and microbiology Laboratory Tests 05/18/24 07:53 Test 05/18/24 07:53 Range/Units Serum Glucose 76 74-106 mg/dL Problem List Acute diverticulitis Acute abdominal pain Elevated troponin Hypokalemia UTI Morbid obesity Assessment/Plan Continue current supportive medical care. Surgery, GI and Cardiology consults. S/p CT-guided drainage of abscess with IR 05/15. Purulent fluid aspirated and sent for analysis. PICC line placed. Case Management consulted for HHS and IV Abx. Patient to remain with PICC until 06/15/24. F/u with ID outpatient in 4 weeks. Xarelto DC. Amiodarone 200 mg BID. IV antibiotics. IVFs with NS at 100 mL/hr. Protonix 40 mg IV daily. Nutritional support with TPN. Pain management prn. Additional plan as per the hospital course. Dietary Evaluation Review Comments: 1) Advance pt diet when medically feasible to a TION10g/2gNa diet 2) Continue current plan of care Expected Outcomes/Goals: F/U in 3-5 days Plan discussed with: Other (RN) SMITHA MCFARLANE DO May 18, 2024 21:21
[2024-05-18] MEDS: SODIUM CHLOR 0.9% PF (SALINE LOCK) 10ML VIAL/SYR IV SCH (21:39)
[2024-05-18] MEDS: AMINO ACID INFUSION IN D10W 1,000 ML IV SCH (21:43)
[2024-05-19] VITALS (8 sets, daily range): BP systolic 116–163; BP diastolic 50–68; PULSE 80–90; RESP 16–19; TEMP 97.5–98.7; O2SAT 90–94
[2024-05-19] MEDS: ACCU-CHEK COMFORT CURVE STRIP VI SCH
[2024-05-19] MEDS: InsuLIN REG 1unit/0.01ml Soln (100units/ml) SC SCH
[2024-05-19] MEDS ORDERED: DEXTROSE (50%) 50ML SYRG IV SCH
[2024-05-19 06:46] LABS: Alanine Aminotransferase 14 U/L (7-40); Albumin 3.1 g/dL (3.2-4.8); Alkaline Phosphatase 93 U/L (46-116); Anion Gap 13 (5-15); Aspartate Aminotransferase 22 U/L (13-40); BUN/Creatinine Ratio 9.6 (10.0-20.0); Blood Urea Nitrogen < 5 mg/dL (9-23); Calcium 8.3 mg/dL (8.7-10.4); Carbon Dioxide 20 mmol/L (20-31); Chloride 107 mmol/L (98-107); Glucose 105 mg/dL (74-106); Magnesium 1.7 mg/dL (1.6-2.6); Phosphorus 2.3 mg/dL (2.4-5.1); Sodium 140 mmol/L (136-145)
[2024-05-19 06:47] LABS: Bilirubin, Total 0.2 mg/dL (0.2-1.0); Total Protein 5.8 g/dL (5.7-8.2)
[2024-05-19 08:17] LABS: Triglycerides 80 mg/dL (< 150)
--- NOTE | 2024-05-19 11:59 | DVHPN2 ---
Consult Progress Note Date Seen: May 19, 2024 Subjective Patient reports: Feels better (no fevers, patient remains NPO) Objective vital signs Vital Sign Date Time Temp Pulse Resp B/P (MAP) Pulse Ox O2 Delivery O2 Flow Rate FiO2 05/19/24 09:41 145/67 05/19/24 08:24 98.7 81 16 92 98.7 05/19/24 07:44 Room Air* 0 21 Total Intake and Output 05/18/24 05/18/24 05/19/24 15:00 23:00 07:00 Intake Total 0 ml 2000 ml 1200 ml Balance 0 ml 2000 ml 1200 ml medications Current Medications Medications Dose Ordered Sig/Lanette Route Start Time Stop Time Status Last Admin Dose Admin Atenolol 25 mg BID PO 05/10/24 10:00 Hold 05/10/24 21:38 25 MG Levothyroxine Sodium 125 mcg QAM@0600 PO 05/10/24 06:00 05/19/24 05:51 125 MCG Atorvastatin Calcium 40 mg HS PO 05/10/24 22:00 05/18/24 21:42 40 MG Ondansetron HCl 4 mg Q4HP PRN IV 05/09/24 23:00 Hold Acetaminophen 650 mg Q6HP PRN PO 05/09/24 23:00 05/10/24 09:30 650 MG Nitroglycerin 0.4 mg Q5MINP PRN SL 05/09/24 23:00 Enoxaparin Sodium 130 mg Q12HR SC 05/10/24 10:00 UNV Sodium Chloride 1,000 ml @ 100 mls/hr Q10H IV 05/10/24 13:15 05/18/24 21:39 100 MLS/HR Pantoprazole Sodium 40 mg DAILY IV 05/11/24 10:00 05/19/24 09:40 40 MG Baclofen 5 mg Q8HP PRN PO 05/12/24 19:15 Nifedipine 10 mg Q6HR PO 05/13/24 18:00 05/19/24 06:00 10 MG Metoprolol Succinate 25 mg TID PO 05/13/24 14:00 05/19/24 05:52 25 MG Lisinopril 40 mg DAILY PO 05/14/24 10:00 05/19/24 09:41 40 MG Amiodarone HCl 200 mg Q12HR PO 05/15/24 10:00 05/19/24 09:40 200 MG Hydromorphone HCl 0.25 mg Q4HPRN PRN IV 05/15/24 16:15 05/19/24 06:26 0.25 MG Ampicillin Sodium/ Sulbactam Sodium 3 gm/Sodium Chloride 100 ml @ 100 mls/hr Q6H IV 05/17/24 10:00 05/19/24 09:41 100 MLS/HR Amino Acids 0 ml @ 0 mls/hr PER PHARMACY IV 05/18/24 14:15 Amino Acids/ Electrolytes/ Dextrose 1,000 ml @ 41 mls/hr DAILY@2200 IV 05/18/24 22:00 05/19/24 21:59 05/18/24 21:43 41 MLS/HR Diagnostic Test (Pha) 1 strip Q6HR 05/19/24 00:00 05/19/24 05:42 1 STRIP Insulin Human Regular FOLLOW SLIDING SCALE Q6HR SC 05/19/24 00:00 Dextrose 50 ml UD IV 05/19/24 00:00 Sodium Chloride 10 ml QSHIFT@10,22 IV 05/18/24 22:00 05/19/24 09:40 10 ML Fat Emulsion Intravenous 100 ml/Sodium Acetate 40 meq/Sodium Phosphate 20 meq/ Potassium Acetate 40 meq/Potassium Phosphate 22 meq/ Magnesium Sulfate 12 meq/ Multivitamins 10 ml/Chromium/ Copper/Manganese/ Zinc 1 ml/Amino Acids/Dextrose 964 ml @ 40 mls/hr Q24H6M IV 05/19/24 22:00 05/20/24 21:59 laboratory and microbiology Laboratory Tests 05/19/24 05:31 05/18/24 07:53 Test 05/19/24 05:31 Range/Units Serum Glucose 105 74-106 mg/dL Problem List/Assessment/Plan Problem List/Assessment/Plan ID Problem List: - Acute diverticulitis - Diverticular abscess - Acute abdominal pain UTI - Elevated troponin - Hypokalemia - Morbid obesity - Diarrhea - Hypertension - Hypothyroidism Assessment: This is a 73 y.o. female with a past medical history of hypertension, hyperlipidemia, kidney transplant, hypothyroidism, morbid obesity, and end-stage renal disease who presents with lower abdominal pain on May 09. The pain was nonradiating and associated with nausea, diarrhea, and poor appetite. The patient visited [place] local urgent care on May 09 for unprovoked onset of persisting symptoms except with the exception of diarrhea for the past days. The patient reported experiencing urinary retention, constipation, and fever initially for 2 days, then it subsided on its own. CT abdomen revealed diverticulitis with air in the retroperitoneum, findings suggestive of abscess, cholestasis, and small hiatal hernia. Chest X-ray showed no acute findings, and HIDA scan showed nonvisualization of the gallbladder suggestive of cystic duct obstruction. Repeat CT abdomen on May 15 showed moderate fat stranding and induration of the central mesentery, with a 6.5 by 6.2 cm collection of air and minimal fluid suggestive of acute diverticulitis with rupture and associated abscess. The patient underwent IR drainage of the pelvic abscess on July 16. Culture revealed E. coli and Proteus mirabilis, both sensitive to ANCEF and Unison. The patient has been on ceftriaxone and Flagyl. Plan: - If patient is expected to go home w. TPN, then will need to change antibiotic to ceftazidime to be compatible. 6 g infused over 24 hours x 4 weeks - Monitor drainage and consider additional IR drainage or surgical I&D if necessary - post IR drainage CT suggests persistence of a large abscess, concern being that IV antibiotics may not be sufficient to clear infection or penetrate an abscess this size (expected around 250cc, only 105cc drained). - Discuss the need for extended IV antibiotic therapy, potentially 30 days with follow up CT abd pelvis afterwards Isolation Precautions: standard Assessment and plan were discussed with the patient as written above. Plan is subject to change pending incorporation of new incoming information/diagnostics. Updates may be added as an addendum at the bottom (OR TOP) of this note. Thank you for the interesting consult. ID will continue to follow. Please contact Infectious Disease for any questions or concerns. Mellissa Jack Medical Plan discussed with: Patient Dietary Evaluation Review Comments: 1) Advance pt diet when medically feasible to a [id number]/2gNa diet 2) Continue current plan of care Expected Outcomes/Goals: F/U in 3-5 days QUINCY HURST MD May 19, 2024 11:59
--- NOTE | 2024-05-19 12:28 | DVHPN2 ---
Progress Note - Dictate Date Seen: May 19, 2024 Medical Necessity Reason Pt with a Central, PICC or Fol: No Subjective Patient was seen and evaluated in follow up. No overnight events. Abdominal pain is improving. Patient is tolerating ice chips. K 3, CA 8.3. vital signs Vital Sign Date Time Temp Pulse Resp B/P (MAP) Pulse Ox O2 Delivery O2 Flow Rate FiO2 05/19/24 09:41 145/67 05/19/24 08:24 98.7 81 16 92 98.7 05/19/24 07:44 Room Air* 0 21 Total Intake and Output 05/18/24 05/18/24 05/19/24 15:00 23:00 07:00 Intake Total 0 ml 2000 ml 1200 ml Balance 0 ml 2000 ml 1200 ml medications Current Medications Medications Dose Ordered Sig/Lanette Route Start Time Stop Time Status Last Admin Dose Admin Atenolol 25 mg BID PO 05/10/24 10:00 Hold 05/10/24 21:38 25 MG Levothyroxine Sodium 125 mcg QAM@0600 PO 05/10/24 06:00 05/19/24 05:51 125 MCG Atorvastatin Calcium 40 mg HS PO 05/10/24 22:00 05/18/24 21:42 40 MG Ondansetron HCl 4 mg Q4HP PRN IV 05/09/24 23:00 Hold Acetaminophen 650 mg Q6HP PRN PO 05/09/24 23:00 05/10/24 09:30 650 MG Nitroglycerin 0.4 mg Q5MINP PRN SL 05/09/24 23:00 Enoxaparin Sodium 130 mg Q12HR SC 05/10/24 10:00 UNV Sodium Chloride 1,000 ml @ 100 mls/hr Q10H IV 05/10/24 13:15 05/18/24 21:39 100 MLS/HR Pantoprazole Sodium 40 mg DAILY IV 05/11/24 10:00 05/19/24 09:40 40 MG Baclofen 5 mg Q8HP PRN PO 05/12/24 19:15 Nifedipine 10 mg Q6HR PO 05/13/24 18:00 05/19/24 06:00 10 MG Metoprolol Succinate 25 mg TID PO 05/13/24 14:00 05/19/24 05:52 25 MG Lisinopril 40 mg DAILY PO 05/14/24 10:00 05/19/24 09:41 40 MG Amiodarone HCl 200 mg Q12HR PO 05/15/24 10:00 05/19/24 09:40 200 MG Hydromorphone HCl 0.25 mg Q4HPRN PRN IV 05/15/24 16:15 05/19/24 06:26 0.25 MG Ampicillin Sodium/ Sulbactam Sodium 3 gm/Sodium Chloride 100 ml @ 100 mls/hr Q6H IV 05/17/24 10:00 05/19/24 09:41 100 MLS/HR Amino Acids 0 ml @ 0 mls/hr PER PHARMACY IV 05/18/24 14:15 Amino Acids/ Electrolytes/ Dextrose 1,000 ml @ 41 mls/hr DAILY@2200 IV 05/18/24 22:00 05/19/24 21:59 05/18/24 21:43 41 MLS/HR Diagnostic Test (Pha) 1 strip Q6HR 05/19/24 00:00 05/19/24 05:42 1 STRIP Insulin Human Regular FOLLOW SLIDING SCALE Q6HR SC 05/19/24 00:00 Dextrose 50 ml UD IV 05/19/24 00:00 Sodium Chloride 10 ml QSHIFT@10,22 IV 05/18/24 22:00 05/19/24 09:40 10 ML Fat Emulsion Intravenous 100 ml/Sodium Acetate 40 meq/Sodium Phosphate 20 meq/ Potassium Acetate 40 meq/Potassium Phosphate 22 meq/ Magnesium Sulfate 12 meq/ Multivitamins 10 ml/Chromium/ Copper/Manganese/ Zinc 1 ml/Amino Acids/Dextrose 964 ml @ 40 mls/hr Q24H6M IV 05/19/24 22:00 05/20/24 21:59 objective GENERAL: Awake, alert, oriented. Morbidly obese. LUNGS: Clear. CARDIOVASCULAR: Tachycardic. ABDOMEN: Soft, tender in the left lower quadrant, nondistended, bowel sounds present all 4 quadrants, no guarding. laboratory and microbiology Laboratory Tests 05/19/24 05:31 05/18/24 07:53 Test 05/19/24 05:31 Range/Units Serum Glucose 105 74-106 mg/dL Problem List Atrial fibrillation with rapid ventricular response. Acute diverticulitis with microperforation. Morbid obesity. Profound leukocytosis. Acute abdominal pain. Elevated troponin. Hypokalemia. UTI. Morbid obesity. Diarrhea. Hypertension. Hypothyroidism. Assessment/Plan Continued all current supportive medical care. Morphine and [place] for pain management. Amiodarone. Lipitor, Metoprolol. IV antibiotics as ordered. GI prophylactics. Lisinopril, Nifedipine. Additional plan as per the hospital course. Dietary Evaluation Review Comments: 1) Advance pt diet when medically feasible to a [id number]/2gNa diet 2) Continue current plan of care Expected Outcomes/Goals: F/U in 3-5 days Plan discussed with: Patient TRESA MCFARLANE MD May 19, 2024 11:29
[2024-05-19] MEDS ORDERED: cefTAZidime 2GM/NS 50 ML IV SCH (14:00)
[2024-05-19] MEDS: SODIUM CHL 0.9% IV SCH (15:03)
[2024-05-19] MEDS: CEFTAZIDIME IV SCH (15:03)
[2024-05-19] MEDS: POTASSIUM PHOSPHATE 26.4 MEQ in SODIUM CHL 0.9% 100 ML IV ONE (17:22)
--- NOTE | 2024-05-19 20:05 | DVHPN2 ---
Progress Note - Dictate Date Seen: May 19, 2024 Medical Necessity Reason Pt with a Central, PICC or Fol: No Subjective No new complaints S/P PICC line placement Pigtail catheter has started draining pus over the last 24 hours after the repeat CT Repeat CT abdomen suggestive of persistent pelvic abscess and the pigtail catheter was not within the collection but since then it has started draining possibly due to adjustment by the radiologist Abdominal pain has improved ; leukocytosis has improved Patient is having bowel movements vital signs Vital Sign Date Time Temp Pulse Resp B/P (MAP) Pulse Ox O2 Delivery O2 Flow Rate FiO2 05/19/24 18:03 163/68 05/19/24 15:30 97.9 89 19 90 97.9 05/19/24 07:44 Room Air* 0 21 Total Intake and Output 05/18/24 05/18/24 05/19/24 15:00 23:00 07:00 Intake Total 0 ml 2000 ml 1200 ml Balance 0 ml 2000 ml 1200 ml medications Current Medications Medications Dose Ordered Sig/Lanette Route Start Time Stop Time Status Last Admin Dose Admin Atenolol 25 mg BID PO 05/10/24 10:00 Hold 05/10/24 21:38 25 MG Levothyroxine Sodium 125 mcg QAM@0600 PO 05/10/24 06:00 05/19/24 05:51 125 MCG Atorvastatin Calcium 40 mg HS PO 05/10/24 22:00 05/18/24 21:42 40 MG Ondansetron HCl 4 mg Q4HP PRN IV 05/09/24 23:00 Hold Acetaminophen 650 mg Q6HP PRN PO 05/09/24 23:00 05/10/24 09:30 650 MG Nitroglycerin 0.4 mg Q5MINP PRN SL 05/09/24 23:00 Enoxaparin Sodium 130 mg Q12HR SC 05/10/24 10:00 UNV Sodium Chloride 1,000 ml @ 100 mls/hr Q10H IV 05/10/24 13:15 05/19/24 17:22 100 MLS/HR Pantoprazole Sodium 40 mg DAILY IV 05/11/24 10:00 05/19/24 09:40 40 MG Baclofen 5 mg Q8HP PRN PO 05/12/24 19:15 Nifedipine 10 mg Q6HR PO 05/13/24 18:00 05/19/24 18:03 10 MG Metoprolol Succinate 25 mg TID PO 05/13/24 14:00 05/19/24 16:09 25 MG Lisinopril 40 mg DAILY PO 05/14/24 10:00 05/19/24 09:41 40 MG Amiodarone HCl 200 mg Q12HR PO 05/15/24 10:00 05/19/24 09:40 200 MG Hydromorphone HCl 0.25 mg Q4HPRN PRN IV 05/15/24 16:15 05/19/24 12:38 0.25 MG Amino Acids 0 ml @ 0 mls/hr PER PHARMACY IV 05/18/24 14:15 Amino Acids/ Electrolytes/ Dextrose 1,000 ml @ 41 mls/hr DAILY@2200 IV 05/18/24 22:00 05/19/24 21:59 05/18/24 21:43 41 MLS/HR Diagnostic Test (Pha) 1 strip Q6HR 05/19/24 00:00 05/19/24 17:31 1 STRIP Insulin Human Regular FOLLOW SLIDING SCALE Q6HR SC 05/19/24 00:00 Dextrose 50 ml UD IV 05/19/24 00:00 Sodium Chloride 10 ml QSHIFT@10,22 IV 05/18/24 22:00 05/19/24 09:40 10 ML Fat Emulsion Intravenous 100 ml/Sodium Acetate 40 meq/Sodium Phosphate 20 meq/ Potassium Acetate 40 meq/Potassium Phosphate 22 meq/ Magnesium Sulfate 12 meq/ Multivitamins 10 ml/Chromium/ Copper/Manganese/ Zinc 1 ml/Amino Acids/Dextrose 964 ml @ 40 mls/hr Q24H6M IV 05/19/24 22:00 05/20/24 21:59 Ceftazidime/ Dextrose 2 gm/ Sodium Chloride 50 ml @ 17.5 mls/hr Q8HR IV 05/19/24 14:00 05/19/24 15:03 17.5 MLS/HR objective General examination- No acute distress , was able to ambulate to bathroom;morbidly obese female HEENT- PEERLA, EOMI intact Heart S1-S2 audible, rate and rhythm regular, no murmur Lungs- CTAB, no wheeze or rhonchi Abdomen- distended, lower abdominal tenderness, bowel sound+ Musculoskeletal-no acute joint swelling or tenderness or redness Lower extremity- no leg edema, but pain in the left lateral thigh Neurological- cranial nerves intact, no acute dysarthria or dysphagia Skin- no acute rash or purpura laboratory and microbiology Laboratory Tests 05/19/24 05:31 05/18/24 07:53 Test 05/19/24 05:31 Range/Units Serum Glucose 105 74-106 mg/dL Problems(with codes): (1) Diverticulitis of intestine with perforation and abscess (2) Non-STEMI (non-ST elevated myocardial infarction) (3) Elevated LFTs (4) Diverticulitis (5) Urinary tract infection Prognosis PLAN Continue IV antibiotics Possible referral to snf for ongoing IV antibiotics and nutritional support Start IV Clinimix 42 mL/hour and then possibly arrange TPN Dietary Evaluation Review Comments: 1) Advance pt diet when medically feasible to a [id number]/[id number] diet 2) Continue current plan of care Expected Outcomes/Goals: F/U in 3-5 days Plan discussed with: Other (Dr Mikey Dumont) MITCHELL DUMONT MD May 19, 2024 20:05
--- NOTE | 2024-05-19 20:36 | DVHPN2 ---
Progress Note - Dictate Date Seen: May 19, 2024 Medical Necessity Reason Pt with a Central, PICC or Fol: No Subjective Patient was seen and evaluated in follow up. No acute events overnight. No new complaints. Abdominal pain has improved. No fevers. Patient remains NPO. Having bowel movements. vital signs Vital Sign Date Time Temp Pulse Resp B/P (MAP) Pulse Ox O2 Delivery O2 Flow Rate FiO2 05/19/24 18:03 163/68 05/19/24 15:30 97.9 89 19 90 97.9 05/19/24 07:44 Room Air* 0 21 Total Intake and Output 05/18/24 05/18/24 05/19/24 15:00 23:00 07:00 Intake Total 0 ml 2000 ml 1200 ml Balance 0 ml 2000 ml 1200 ml medications Current Medications Medications Dose Ordered Sig/Lanette Route Start Time Stop Time Status Last Admin Dose Admin Atenolol 25 mg BID PO 05/10/24 10:00 Hold 05/10/24 21:38 25 MG Levothyroxine Sodium 125 mcg QAM@0600 PO 05/10/24 06:00 05/19/24 05:51 125 MCG Atorvastatin Calcium 40 mg HS PO 05/10/24 22:00 05/18/24 21:42 40 MG Ondansetron HCl 4 mg Q4HP PRN IV 05/09/24 23:00 Hold Acetaminophen 650 mg Q6HP PRN PO 05/09/24 23:00 05/10/24 09:30 650 MG Nitroglycerin 0.4 mg Q5MINP PRN SL 05/09/24 23:00 Enoxaparin Sodium 130 mg Q12HR SC 05/10/24 10:00 UNV Sodium Chloride 1,000 ml @ 100 mls/hr Q10H IV 05/10/24 13:15 05/19/24 17:22 100 MLS/HR Pantoprazole Sodium 40 mg DAILY IV 05/11/24 10:00 05/19/24 09:40 40 MG Baclofen 5 mg Q8HP PRN PO 05/12/24 19:15 Nifedipine 10 mg Q6HR PO 05/13/24 18:00 05/19/24 18:03 10 MG Metoprolol Succinate 25 mg TID PO 05/13/24 14:00 05/19/24 16:09 25 MG Lisinopril 40 mg DAILY PO 05/14/24 10:00 05/19/24 09:41 40 MG Amiodarone HCl 200 mg Q12HR PO 05/15/24 10:00 05/19/24 09:40 200 MG Hydromorphone HCl 0.25 mg Q4HPRN PRN IV 05/15/24 16:15 05/19/24 12:38 0.25 MG Amino Acids 0 ml @ 0 mls/hr PER PHARMACY IV 05/18/24 14:15 Amino Acids/ Electrolytes/ Dextrose 1,000 ml @ 41 mls/hr DAILY@2200 IV 05/18/24 22:00 05/19/24 21:59 05/18/24 21:43 41 MLS/HR Diagnostic Test (Pha) 1 strip Q6HR 05/19/24 00:00 05/19/24 17:31 1 STRIP Insulin Human Regular FOLLOW SLIDING SCALE Q6HR SC 05/19/24 00:00 Dextrose 50 ml UD IV 05/19/24 00:00 Sodium Chloride 10 ml QSHIFT@10,22 IV 05/18/24 22:00 05/19/24 09:40 10 ML Fat Emulsion Intravenous 100 ml/Sodium Acetate 40 meq/Sodium Phosphate 20 meq/ Potassium Acetate 40 meq/Potassium Phosphate 22 meq/ Magnesium Sulfate 12 meq/ Multivitamins 10 ml/Chromium/ Copper/Manganese/ Zinc 1 ml/Amino Acids/Dextrose 964 ml @ 40 mls/hr Q24H6M IV 05/19/24 22:00 05/20/24 21:59 Ceftazidime/ Dextrose 2 gm/ Sodium Chloride 50 ml @ 17.5 mls/hr Q8HR IV 05/19/24 14:00 05/19/24 15:03 17.5 MLS/HR objective Physical exam: Vitals and nursing notes reviewed. General: In no acute distress, morbidly obese. HEENT: Normocephalic atraumatic, mucous membranes moist and pink. Neck: Cervical and supraclavicular nodes normal without enlargement. Pulmonary: Clear to auscultation and percussion bilaterally. Cardiac: RRR. No murmur. Abdomen: Soft, nondistended, bowel sounds present all 4 quadrants, no guarding. Musculoskeletal: No deformity. Neuro: Cranial nerves II through XII grossly intact, normal affect and speech, no focal motor deficits. Skin: Warm, dry, normal color and texture, no rash. laboratory and microbiology Laboratory Tests 05/19/24 05:31 05/18/24 07:53 Test 05/19/24 05:31 Range/Units Serum Glucose 105 74-106 mg/dL Problem List Acute diverticulitis Acute abdominal pain Elevated troponin Hypokalemia UTI Morbid obesity Assessment/Plan Continue current supportive medical care. Surgery, GI and Cardiology consults. S/p CT-guided drainage of abscess with IR 05/15. Purulent fluid aspirated- cultures are positive for E.Coli, Proteus mirabilis, Enterococcus faecium. Case Management is arranging HHS and IV Abx. Patient to remain with PICC until 06/15/24. F/u with ID outpatient in 4 weeks. Possible referral for SNF. Nutritional support with Clinimix 42 mL/hr and then possibly arrange TPN. IV antibiotics. IVFs with NS at 100 mL/hr. Amiodarone 200 mg BID. Metoprolol 25 mg PO TID. Nifedipine 10 mg PO q6h. Levothyroxine 125 mcg QAM. Protonix 40 mg IV daily. Enoxaparin 130 mg SC q12h. Pain management prn. Additional plan as per the hospital course. Dietary Evaluation Review Comments: 1) Advance pt diet when medically feasible to a [id number] diet 2) Continue current plan of care Expected Outcomes/Goals: F/U in 3-5 days Plan discussed with: Patient, Other (RN) SMITHA MCFARLANE DO May 19, 2024 20:36
--- NOTE | 2024-05-19 21:16 | DVHPN2 ---
Progress Note Date Seen: May 19, 2024 Medical Necessity Reason Pt with a Central, PICC or Fol: No Objective vital signs Vital Sign Date Time Temp Pulse Resp B/P (MAP) Pulse Ox O2 Delivery O2 Flow Rate FiO2 05/19/24 18:03 163/68 05/19/24 15:30 97.9 89 19 90 97.9 05/19/24 07:44 Room Air* 0 21 Total Intake and Output 05/18/24 05/18/24 05/19/24 15:00 23:00 07:00 Intake Total 0 ml 2000 ml 1200 ml Balance 0 ml 2000 ml 1200 ml medications Current Medications Medications Dose Ordered Sig/Lanette Route Start Time Stop Time Status Last Admin Dose Admin Atenolol 25 mg BID PO 05/10/24 10:00 Hold 05/10/24 21:38 25 MG Levothyroxine Sodium 125 mcg QAM@0600 PO 05/10/24 06:00 05/19/24 05:51 125 MCG Atorvastatin Calcium 40 mg HS PO 05/10/24 22:00 05/18/24 21:42 40 MG Ondansetron HCl 4 mg Q4HP PRN IV 05/09/24 23:00 Hold Acetaminophen 650 mg Q6HP PRN PO 05/09/24 23:00 05/10/24 09:30 650 MG Nitroglycerin 0.4 mg Q5MINP PRN SL 05/09/24 23:00 Enoxaparin Sodium 130 mg Q12HR SC 05/10/24 10:00 UNV Sodium Chloride 1,000 ml @ 100 mls/hr Q10H IV 05/10/24 13:15 05/19/24 17:22 100 MLS/HR Pantoprazole Sodium 40 mg DAILY IV 05/11/24 10:00 05/19/24 09:40 40 MG Baclofen 5 mg Q8HP PRN PO 05/12/24 19:15 Nifedipine 10 mg Q6HR PO 05/13/24 18:00 05/19/24 18:03 10 MG Metoprolol Succinate 25 mg TID PO 05/13/24 14:00 05/19/24 16:09 25 MG Lisinopril 40 mg DAILY PO 05/14/24 10:00 05/19/24 09:41 40 MG Amiodarone HCl 200 mg Q12HR PO 05/15/24 10:00 05/19/24 09:40 200 MG Hydromorphone HCl 0.25 mg Q4HPRN PRN IV 05/15/24 16:15 05/19/24 12:38 0.25 MG Amino Acids 0 ml @ 0 mls/hr PER PHARMACY IV 05/18/24 14:15 Amino Acids/ Electrolytes/ Dextrose 1,000 ml @ 41 mls/hr DAILY@2200 IV 05/18/24 22:00 05/19/24 21:59 05/18/24 21:43 41 MLS/HR Diagnostic Test (Pha) 1 strip Q6HR 05/19/24 00:00 05/19/24 17:31 1 STRIP Insulin Human Regular FOLLOW SLIDING SCALE Q6HR SC 05/19/24 00:00 Dextrose 50 ml UD IV 05/19/24 00:00 Sodium Chloride 10 ml QSHIFT@,22 IV 05/18/24 22:00 05/19/24 09:40 10 ML Fat Emulsion Intravenous 100 ml/Sodium Acetate 40 meq/Sodium Phosphate 20 meq/ Potassium Acetate 40 meq/Potassium Phosphate 22 meq/ Magnesium Sulfate 12 meq/ Multivitamins 10 ml/Chromium/ Copper/Manganese/ Zinc 1 ml/Amino Acids/Dextrose 964 ml @ 40 mls/hr Q24H6M IV 05/19/24 22:00 05/20/24 21:59 Ceftazidime/ Dextrose 2 gm/ Sodium Chloride 50 ml @ 17.5 mls/hr Q8HR IV 05/19/24 14:00 05/19/24 15:03 17.5 MLS/HR laboratory and microbiology Laboratory Tests 05/19/24 05:31 05/18/24 07:53 Test 05/19/24 05:31 Range/Units Serum Glucose 105 74-106 mg/dL Microbiology Date/Time Source Procedure Growth Status 05/15/24 13:15 Aspirate Gram Stain - Final Complete 05/15/24 13:15 Body Fluid Culture - Final Escherichia coli Proteus mirabilis Enterococcus faecium Yeast, not Nilsa albicans Complete 05/09/24 21:14 Voided Urine Urine Culture - Final Complete Problem List/Assessment/Plan Problem List/Assessment/Plan AFEBRILE VSS ABD SOFT TENDER NO REBOUND FLATUS + WBC TRENDING DOWN IR DRAINAGE OF INTRAABD ABSCESS DONE AND EVAL ONGOING PURULENT DRAINAGE NOTED IN DRAINAGE BAG CONTINUE CLOSE OBSERVATION IV ABX Plan discussed with: Patient Dietary Evaluation Review Comments: 1) Advance pt diet when medically feasible to a ILIQ46l/2gNa diet 2) Continue current plan of care Expected Outcomes/Goals: F/U in 3-5 days CATALINO DEMPSEY MD May 19, 2024 21:16
[2024-05-19] MEDS: TPN PER PHARMACY IV NR (22:33)
[2024-05-20] VITALS (8 sets, daily range): BP systolic 148–171; BP diastolic 56–91; PULSE 79–96; RESP 17–20; TEMP 97.5–98; O2SAT 90–96
[2024-05-20 04:36] LABS: Alanine Aminotransferase 14 U/L (7-40); Albumin 3.2 g/dL (3.2-4.8); Alkaline Phosphatase 88 U/L (46-116); Anion Gap 6 (5-15); Aspartate Aminotransferase 19 U/L (13-40); Calcium 8.4 mg/dL (8.7-10.4); Carbon Dioxide 24 mmol/L (20-31); Chloride 109 mmol/L (98-107); Glucose 139 mg/dL (74-106); Magnesium 1.6 mg/dL (1.6-2.6); Potassium 2.8 mmol/L (3.5-5.1); Sodium 139 mmol/L (136-145)
[2024-05-20 04:37] LABS: Bilirubin, Total 0.2 mg/dL (0.2-1.0); Phosphorus 2.3 mg/dL (2.4-5.1); Total Protein 5.8 g/dL (5.7-8.2)
[2024-05-20 04:40] LABS: BUN/Creatinine Ratio 9.8 (10.0-20.0); Blood Urea Nitrogen < 5 mg/dL (9-23)
[2024-05-20] MEDS: POTASSIUM PHOSPHATE 26.4 MEQ in SODIUM CHL 0.9% 100 ML IV ONE (08:15)
[2024-05-20] MEDS: POTASSIUM CHL 20MEQ/100ML 100 ML IV SCH (11:33)
--- NOTE | 2024-05-20 12:15 | DVHPN2 ---
Progress Note Date Seen: May 20, 2024 Medical Necessity Reason Pt with a Central, PICC or Fol: No Objective vital signs Vital Sign Date Time Temp Pulse Resp B/P (MAP) Pulse Ox O2 Delivery O2 Flow Rate FiO2 05/20/24 11:37 158/62 05/20/24 11:35 87 18 05/20/24 07:59 97.6 94 97.6 05/19/24 20:00 Room Air* 0 21 Total Intake and Output 05/19/24 05/19/24 05/20/24 14:59 22:59 06:59 Intake Total 0 ml 0 ml 50 ml Output Total 800 ml Balance 0 ml -800 ml 50 ml medications Current Medications Medications Dose Ordered Sig/Lanette Route Start Time Stop Time Status Last Admin Dose Admin Atenolol 25 mg BID PO 05/10/24 10:00 Hold 05/10/24 21:38 25 MG Levothyroxine Sodium 125 mcg QAM@0600 PO 05/10/24 06:00 05/20/24 05:51 125 MCG Atorvastatin Calcium 40 mg HS PO 05/10/24 22:00 05/19/24 21:54 40 MG Ondansetron HCl 4 mg Q4HP PRN IV 05/09/24 23:00 Hold Acetaminophen 650 mg Q6HP PRN PO 05/09/24 23:00 05/10/24 09:30 650 MG Nitroglycerin 0.4 mg Q5MINP PRN SL 05/09/24 23:00 Enoxaparin Sodium 130 mg Q12HR SC 05/10/24 10:00 UNV Pantoprazole Sodium 40 mg DAILY IV 05/11/24 10:00 05/20/24 11:34 40 MG Baclofen 5 mg Q8HP PRN PO 05/12/24 19:15 Nifedipine 10 mg Q6HR PO 05/13/24 18:00 05/20/24 11:37 10 MG Metoprolol Succinate 25 mg TID PO 05/13/24 14:00 05/20/24 05:43 25 MG Lisinopril 40 mg DAILY PO 05/14/24 10:00 05/20/24 11:36 40 MG Amiodarone HCl 200 mg Q12HR PO 05/15/24 10:00 05/20/24 11:36 200 MG Hydromorphone HCl 0.25 mg Q4HPRN PRN IV 05/15/24 16:15 05/20/24 11:35 0.25 MG Amino Acids 0 ml @ 0 mls/hr PER PHARMACY IV 05/18/24 14:15 Diagnostic Test (Pha) 1 strip Q6HR 05/19/24 00:00 05/20/24 05:36 1 STRIP Insulin Human Regular FOLLOW SLIDING SCALE Q6HR SC 05/19/24 00:00 05/20/24 06:46 2 UNITS Dextrose 50 ml UD IV 05/19/24 00:00 Sodium Chloride 10 ml QSHIFT@,22 IV 05/18/24 22:00 05/20/24 10:00 10 ML Fat Emulsion Intravenous 100 ml/Sodium Acetate 40 meq/Sodium Phosphate 20 meq/ Potassium Acetate 40 meq/Potassium Phosphate 22 meq/ Magnesium Sulfate 12 meq/ Multivitamins 10 ml/Chromium/ Copper/Manganese/ Zinc 1 ml/Amino Acids/Dextrose 964 ml @ 40 mls/hr Q24H6M IV 05/19/24 22:00 05/20/24 21:59 05/19/24 22:33 40 MLS/HR Ceftazidime/ Dextrose 2 gm/ Sodium Chloride 50 ml @ 17.5 mls/hr Q8HR IV 05/19/24 14:00 05/20/24 06:37 17.5 MLS/HR Potassium Chloride 100 ml @ 50 mls/hr Q2HR IV 05/20/24 10:00 05/20/24 15:59 05/20/24 11:33 50 MLS/HR Fat Emulsion Intravenous 150 ml/Sodium Acetate 40 meq/Sodium Phosphate 40 meq/ Potassium Acetate 40 meq/Potassium Phosphate 44 meq/ Magnesium Sulfate 18 meq/ Multivitamins 10 ml/Chromium/ Copper/Manganese/ Zinc 1 ml/Insulin Human Regular 2 units/Amino Acids/ Dextrose 1,225.52 ml @ 51 mls/hr Q24H2M IV 05/20/24 22:00 05/21/24 21:59 laboratory and microbiology Laboratory Tests 05/20/24 03:41 05/18/24 07:53 Test 05/20/24 03:41 Range/Units Serum Glucose 139 H 74-106 mg/dL Microbiology Date/Time Source Procedure Growth Status 05/15/24 13:15 Aspirate Gram Stain - Final Complete 05/15/24 13:15 Body Fluid Culture - Final Escherichia coli Proteus mirabilis Enterococcus faecium Yeast, not Nilsa albicans Complete 05/09/24 21:14 Voided Urine Urine Culture - Final Complete Problem List/Assessment/Plan Problem List/Assessment/Plan AFEBRILE VSS ABD SOFT TENDER NO REBOUND FLATUS + WBC TRENDING DOWN IR DRAINAGE OF INTRAABD ABSCESS DONE AND EVAL ONGOING PURULENT DRAINAGE NOTED IN DRAINAGE BAG CONTINUE CLOSE OBSERVATION IV ABX NURSE AND FAMILY AT BEDSIDE Plan discussed with: Patient Dietary Evaluation Review Comments: 1) Advance pt diet when medically feasible to a EVUX16e/2gNa diet 2) Continue current plan of care Expected Outcomes/Goals: F/U in 3-5 days CATALINO DEMPSEY MD May 20, 2024 12:15
--- NOTE | 2024-05-20 16:32 | DVHPN2 ---
Progress Note - Dictate Date Seen: May 20, 2024 Medical Necessity Reason Pt with a Central, PICC or Fol: No Subjective No new complaints S/P PICC line placement, patient is getting IV TPN Pigtail catheter has started draining pus over the last 24 hours after the repeat CT, total of [address] abdomen suggestive of persistent pelvic abscess and the pigtail catheter was not within the collection but since then it has started draining possibly due to adjustment by the radiologist Abdominal pain has improved ; leukocytosis has improved Patient is having bowel movements vital signs Vital Sign Date Time Temp Pulse Resp B/P (MAP) Pulse Ox O2 Delivery O2 Flow Rate FiO2 05/20/24 15:57 88 18 148/86 05/20/24 13:00 97.9 96 97.9 05/19/24 20:00 Room Air* 0 21 Total Intake and Output 05/19/24 05/19/24 05/20/24 15:00 23:00 07:00 Intake Total 0 ml 0 ml 50 ml Output Total 800 ml Balance 0 ml -800 ml 50 ml medications Current Medications Medications Dose Ordered Sig/Lanette Route Start Time Stop Time Status Last Admin Dose Admin Atenolol 25 mg BID PO 05/10/24 10:00 Hold 05/10/24 21:38 25 MG Levothyroxine Sodium 125 mcg QAM@0600 PO 05/10/24 06:00 05/20/24 05:51 125 MCG Atorvastatin Calcium 40 mg HS PO 05/10/24 22:00 05/19/24 21:54 40 MG Ondansetron HCl 4 mg Q4HP PRN IV 05/09/24 23:00 Hold Acetaminophen 650 mg Q6HP PRN PO 05/09/24 23:00 05/10/24 09:30 650 MG Nitroglycerin 0.4 mg Q5MINP PRN SL 05/09/24 23:00 Enoxaparin Sodium 130 mg Q12HR SC 05/10/24 10:00 UNV Pantoprazole Sodium 40 mg DAILY IV 05/11/24 10:00 05/20/24 11:34 40 MG Baclofen 5 mg Q8HP PRN PO 05/12/24 19:15 Nifedipine 10 mg Q6HR PO 05/13/24 18:00 05/20/24 11:37 10 MG Metoprolol Succinate 25 mg TID PO 05/13/24 14:00 05/20/24 15:56 25 MG Lisinopril 40 mg DAILY PO 05/14/24 10:00 05/20/24 11:36 40 MG Amiodarone HCl 200 mg Q12HR PO 05/15/24 10:00 05/20/24 11:36 200 MG Hydromorphone HCl 0.25 mg Q4HPRN PRN IV 05/15/24 16:15 05/20/24 15:57 0.25 MG Amino Acids 0 ml @ 0 mls/hr PER PHARMACY IV 05/18/24 14:15 Diagnostic Test (Pha) 1 strip Q6HR 05/19/24 00:00 05/20/24 12:22 1 STRIP Insulin Human Regular FOLLOW SLIDING SCALE Q6HR SC 05/19/24 00:00 05/20/24 06:46 2 UNITS Dextrose 50 ml UD IV 05/19/24 00:00 Sodium Chloride 10 ml QSHIFT@10,22 IV 05/18/24 22:00 05/20/24 10:00 10 ML Fat Emulsion Intravenous 100 ml/Sodium Acetate 40 meq/Sodium Phosphate 20 meq/ Potassium Acetate 40 meq/Potassium Phosphate 22 meq/ Magnesium Sulfate 12 meq/ Multivitamins 10 ml/Chromium/ Copper/Manganese/ Zinc 1 ml/Amino Acids/Dextrose 964 ml @ 40 mls/hr Q24H6M IV 05/19/24 22:00 05/20/24 21:59 05/19/24 22:33 40 MLS/HR Ceftazidime/ Dextrose 2 gm/ Sodium Chloride 50 ml @ 17.5 mls/hr Q8HR IV 05/19/24 14:00 05/20/24 06:37 17.5 MLS/HR Fat Emulsion Intravenous 150 ml/Sodium Acetate 40 meq/Sodium Phosphate 40 meq/ Potassium Acetate 40 meq/Potassium Phosphate 44 meq/ Magnesium Sulfate 18 meq/ Multivitamins 10 ml/Chromium/ Copper/Manganese/ Zinc 1 ml/Insulin Human Regular 2 units/Amino Acids/ Dextrose 1,225.52 ml @ 51 mls/hr Q24H2M IV 05/20/24 22:00 05/21/24 21:59 objective General examination- No acute distress , was able to ambulate to bathroom;morbidly obese female HEENT- PEERLA, EOMI intact Heart S1-S2 audible, rate and rhythm regular, no murmur Lungs- CTAB, no wheeze or rhonchi Abdomen- distended, lower abdominal tenderness, bowel sound+ Musculoskeletal-no acute joint swelling or tenderness or redness Lower extremity- no leg edema, but pain in the left lateral thigh Neurological- cranial nerves intact, no acute dysarthria or dysphagia Skin- no acute rash or purpura laboratory and microbiology Laboratory Tests 05/20/24 03:41 05/18/24 07:53 Test 05/20/24 03:41 Range/Units Serum Glucose 139 H 74-106 mg/dL Problems(with codes): (1) Diverticulitis of intestine with perforation and abscess (2) Non-STEMI (non-ST elevated myocardial infarction) (3) Elevated LFTs (4) Diverticulitis (5) Urinary tract infection (6) Elevated brain natriuretic peptide (BNP) level (7) Cholelithiasis Prognosis PLAN Surgical follow up appreciated Continue IV antibiotics Possible referral to snf for ongoing IV antibiotics and nutritional support Start IV Clinimix 42 mL/hour and then possibly arrange TPN Dietary Evaluation Review Comments: 1) Advance pt diet when medically feasible to a [id number]/[id number] diet 2) Continue current plan of care Expected Outcomes/Goals: F/U in 3-5 days Plan discussed with: Patient, Other (Nurse) MITCHELL DEMPSEY MD May 20, 2024 16:32
--- NOTE | 2024-05-20 19:17 | DVHPN2 ---
Consult Progress Note Date Seen: May 20, 2024 Subjective Patient reports: Feels better (additional growth of enterococcus on subculture) Objective vital signs Vital Sign Date Time Temp Pulse Resp B/P (MAP) Pulse Ox O2 Delivery O2 Flow Rate FiO2 05/20/24 18:56 159/91 05/20/24 16:55 98.0 90 20 94 98.0 05/20/24 08:00 Room Air* 0 21 Total Intake and Output 05/19/24 05/19/24 05/20/24 15:00 23:00 07:00 Intake Total 0 ml 0 ml 50 ml Output Total 800 ml Balance 0 ml -800 ml 50 ml medications Current Medications Medications Dose Ordered Sig/Lanette Route Start Time Stop Time Status Last Admin Dose Admin Atenolol 25 mg BID PO 05/10/24 10:00 Hold 05/10/24 21:38 25 MG Levothyroxine Sodium 125 mcg QAM@0600 PO 05/10/24 06:00 05/20/24 05:51 125 MCG Atorvastatin Calcium 40 mg HS PO 05/10/24 22:00 05/19/24 21:54 40 MG Ondansetron HCl 4 mg Q4HP PRN IV 05/09/24 23:00 Hold Acetaminophen 650 mg Q6HP PRN PO 05/09/24 23:00 05/10/24 09:30 650 MG Nitroglycerin 0.4 mg Q5MINP PRN SL 05/09/24 23:00 Enoxaparin Sodium 130 mg Q12HR SC 05/10/24 10:00 UNV Pantoprazole Sodium 40 mg DAILY IV 05/11/24 10:00 05/20/24 11:34 40 MG Baclofen 5 mg Q8HP PRN PO 05/12/24 19:15 Nifedipine 10 mg Q6HR PO 05/13/24 18:00 05/20/24 18:56 10 MG Metoprolol Succinate 25 mg TID PO 05/13/24 14:00 05/20/24 15:56 25 MG Lisinopril 40 mg DAILY PO 05/14/24 10:00 05/20/24 11:36 40 MG Amiodarone HCl 200 mg Q12HR PO 05/15/24 10:00 05/20/24 11:36 200 MG Hydromorphone HCl 0.25 mg Q4HPRN PRN IV 05/15/24 16:15 05/20/24 15:57 0.25 MG Amino Acids 0 ml @ 0 mls/hr PER PHARMACY IV 05/18/24 14:15 Diagnostic Test (Pha) 1 strip Q6HR 05/19/24 00:00 05/20/24 17:08 1 STRIP Insulin Human Regular FOLLOW SLIDING SCALE Q6HR SC 05/19/24 00:00 05/20/24 06:46 2 UNITS Dextrose 50 ml UD IV 05/19/24 00:00 Sodium Chloride 10 ml QSHIFT@10,22 IV 05/18/24 22:00 05/20/24 10:00 10 ML Fat Emulsion Intravenous 100 ml/Sodium Acetate 40 meq/Sodium Phosphate 20 meq/ Potassium Acetate 40 meq/Potassium Phosphate 22 meq/ Magnesium Sulfate 12 meq/ Multivitamins 10 ml/Chromium/ Copper/Manganese/ Zinc 1 ml/Amino Acids/Dextrose 964 ml @ 40 mls/hr Q24H6M IV 05/19/24 22:00 05/20/24 21:59 05/19/24 22:33 40 MLS/HR Ceftazidime/ Dextrose 2 gm/ Sodium Chloride 50 ml @ 17.5 mls/hr Q8HR IV 05/19/24 14:00 05/20/24 06:37 17.5 MLS/HR Fat Emulsion Intravenous 150 ml/Sodium Acetate 40 meq/Sodium Phosphate 40 meq/ Potassium Acetate 40 meq/Potassium Phosphate 44 meq/ Magnesium Sulfate 18 meq/ Multivitamins 10 ml/Chromium/ Copper/Manganese/ Zinc 1 ml/Insulin Human Regular 2 units/Amino Acids/ Dextrose 1,225.52 ml @ 51 mls/hr Q24H2M IV 05/20/24 22:00 05/21/24 21:59 Physical Exam: General: NAD Neck: Supple. No masses. HEENT: PERRL. Normal lids and conjunctiva. Moist mucous membranes. Oropharynx without lesions, exudates, or excessive erythema. Normal appearance of the external aspects of the nose and ears. Heart: Regular rhythm, normal rate. No murmur. No lower extremity edema. Lungs: Normal respiratory effort. Clear to auscultation bilaterally. No wheezes. No crackles. Abdomen: Soft. Non-tender. Non-distended. No masses or abdominal hernia. Msk: No digital cyanosis. Normal strength and tone in all 4 limbs. Skin: Warm and dry, no rashes. Neuro: Alert. No facial droop or slurred speech. Extra-ocular movements intact. Sensation intact to soft touch in all 4 limbs. Psych: Appropriate mood. Full affect. Oriented to person, place, time, and situation. laboratory and microbiology Laboratory Tests 05/20/24 03:41 05/18/24 07:53 Test 05/20/24 03:41 Range/Units Serum Glucose 139 H 74-106 mg/dL Problem List/Assessment/Plan Problem List/Assessment/Plan ID Problem List: - Acute diverticulitis - Diverticular abscess - Acute abdominal pain UTI - Elevated troponin - Hypokalemia - Morbid obesity - Diarrhea - Hypertension - Hypothyroidism Assessment: This is a 73 y.o. female with a past medical history of hypertension, hyperlipidemia, kidney transplant, hypothyroidism, morbid obesity, and end-stage renal disease who presents with lower abdominal pain on May 09. The pain was nonradiating and associated with nausea, diarrhea, and poor appetite. The patient visited [facility] urgent care on May 09 for unprovoked onset of persisting symptoms except with the exception of diarrhea for the past days. The patient reported experiencing urinary retention, constipation, and fever initially for 2 days, then it subsided on its own. CT abdomen revealed diverticulitis with air in the retroperitoneum, findings suggestive of abscess, cholestasis, and small hiatal hernia. Chest X-ray showed no acute findings, and HIDA scan showed nonvisualization of the gallbladder suggestive of cystic duct obstruction. Repeat CT abdomen on May 15 showed moderate fat stranding and induration of the central mesentery, with a 6.5 by 6.2 cm collection of air and minimal fluid suggestive of acute diverticulitis with rupture and associated abscess. The patient underwent IR drainage of the pelvic abscess on July 16. Culture revealed E. coli and Proteus mirabilis, both sensitive to ANCEF and [place]. The patient has been on ceftriaxone and Flagyl. Plan: - If patient is expected to go home w. TPN, then continue ceftazidime to be compatible. 6 g infused over 24 hours x 4 weeks - Monitor drainage and consider additional IR drainage or surgical I&D if necessary - post IR drainage CT suggests persistence of a large abscess, concern being that IV antibiotics may not be sufficient to clear infection or penetrate an abscess this size (expected around 250cc, only 105cc drained). - Discuss the need for extended IV antibiotic therapy, potentially 30 days with follow up CT abd pelvis afterwards Isolation Precautions: standard Assessment and plan were discussed with the patient as written above. Plan is subject to change pending incorporation of new incoming information/diagnostics. Updates may be added as an addendum at the bottom (OR TOP) of this note. Thank you for the interesting consult. ID will continue to follow. Please contact Infectious Disease for any questions or concerns. Quincy Wooten M.D. [facility] Plan discussed with: Patient Dietary Evaluation Review Comments: 1) Advance pt diet when medically feasible to a SODG57h/2gNa diet 2) Continue current plan of care Expected Outcomes/Goals: F/U in 3-5 days QUINCY WOOTEN MD May 20, 2024 19:16
--- NOTE | 2024-05-20 20:04 | DVHPN2 ---
Progress Note - Dictate Date Seen: May 20, 2024 Medical Necessity Reason Pt with a Central, PICC or Fol: No Subjective Patient was seen and evaluated in follow up. Patient is complaining of generalized pain. Patient reports passing flatus. Patient is S/P PICC line placement, patient is getting IV TPN. Pigtail catheter has started draining pus over the last 24 hours after the repeat CT, total of [address] abdomen suggestive of persistent pelvic abscess and the pigtail catheter was not within the collection. K 2.8. vital signs Vital Sign Date Time Temp Pulse Resp B/P (MAP) Pulse Ox O2 Delivery O2 Flow Rate FiO2 05/20/24 11:37 158/62 05/20/24 11:35 87 18 05/20/24 07:59 97.6 94 97.6 05/19/24 20:00 Room Air* 0 21 Total Intake and Output 05/19/24 05/19/24 05/20/24 15:00 23:00 07:00 Intake Total 0 ml 0 ml 50 ml Output Total 800 ml Balance 0 ml -800 ml 50 ml medications Current Medications Medications Dose Ordered Sig/Lanette Route Start Time Stop Time Status Last Admin Dose Admin Atenolol 25 mg BID PO 05/10/24 10:00 Hold 05/10/24 21:38 25 MG Levothyroxine Sodium 125 mcg QAM@0600 PO 05/10/24 06:00 05/20/24 05:51 125 MCG Atorvastatin Calcium 40 mg HS PO 05/10/24 22:00 05/19/24 21:54 40 MG Ondansetron HCl 4 mg Q4HP PRN IV 05/09/24 23:00 Hold Acetaminophen 650 mg Q6HP PRN PO 05/09/24 23:00 05/10/24 09:30 650 MG Nitroglycerin 0.4 mg Q5MINP PRN SL 05/09/24 23:00 Enoxaparin Sodium 130 mg Q12HR SC 05/10/24 10:00 UNV Pantoprazole Sodium 40 mg DAILY IV 05/11/24 10:00 05/20/24 11:34 40 MG Baclofen 5 mg Q8HP PRN PO 05/12/24 19:15 Nifedipine 10 mg Q6HR PO 05/13/24 18:00 05/20/24 11:37 10 MG Metoprolol Succinate 25 mg TID PO 05/13/24 14:00 05/20/24 05:43 25 MG Lisinopril 40 mg DAILY PO 05/14/24 10:00 05/20/24 11:36 40 MG Amiodarone HCl 200 mg Q12HR PO 05/15/24 10:00 05/20/24 11:36 200 MG Hydromorphone HCl 0.25 mg Q4HPRN PRN IV 05/15/24 16:15 05/20/24 11:35 0.25 MG Amino Acids 0 ml @ 0 mls/hr PER PHARMACY IV 05/18/24 14:15 Diagnostic Test (Pha) 1 strip Q6HR 05/19/24 00:00 05/20/24 12:22 1 STRIP Insulin Human Regular FOLLOW SLIDING SCALE Q6HR SC 05/19/24 00:00 05/20/24 06:46 2 UNITS Dextrose 50 ml UD IV 05/19/24 00:00 Sodium Chloride 10 ml QSHIFT@10,22 IV 05/18/24 22:00 05/20/24 10:00 10 ML Fat Emulsion Intravenous 100 ml/Sodium Acetate 40 meq/Sodium Phosphate 20 meq/ Potassium Acetate 40 meq/Potassium Phosphate 22 meq/ Magnesium Sulfate 12 meq/ Multivitamins 10 ml/Chromium/ Copper/Manganese/ Zinc 1 ml/Amino Acids/Dextrose 964 ml @ 40 mls/hr Q24H6M IV 05/19/24 22:00 05/20/24 21:59 05/19/24 22:33 40 MLS/HR Ceftazidime/ Dextrose 2 gm/ Sodium Chloride 50 ml @ 17.5 mls/hr Q8HR IV 05/19/24 14:00 05/20/24 06:37 17.5 MLS/HR Potassium Chloride 100 ml @ 50 mls/hr Q2HR IV 05/20/24 10:00 05/20/24 15:59 05/20/24 11:33 50 MLS/HR Fat Emulsion Intravenous 150 ml/Sodium Acetate 40 meq/Sodium Phosphate 40 meq/ Potassium Acetate 40 meq/Potassium Phosphate 44 meq/ Magnesium Sulfate 18 meq/ Multivitamins 10 ml/Chromium/ Copper/Manganese/ Zinc 1 ml/Insulin Human Regular 2 units/Amino Acids/ Dextrose 1,225.52 ml @ 51 mls/hr Q24H2M IV 05/20/24 22:00 05/21/24 21:59 objective GENERAL: Awake, alert, oriented. Morbidly obese. LUNGS: Clear. CARDIOVASCULAR: Tachycardic. ABDOMEN: Soft, tender in the left lower quadrant, nondistended, bowel sounds present all 4 quadrants, no guarding. laboratory and microbiology Laboratory Tests 05/20/24 03:41 05/18/24 07:53 Test 05/20/24 03:41 Range/Units Serum Glucose 139 H 74-106 mg/dL Problem List Atrial fibrillation with rapid ventricular response. Acute diverticulitis with microperforation. Morbid obesity. Profound leukocytosis. Acute abdominal pain. Elevated troponin. Hypokalemia. UTI. Morbid obesity. Diarrhea. Hypertension. Hypothyroidism. Assessment/Plan Continued all current supportive medical care. Morphine and [place] for pain management. Amiodarone. Lipitor, Metoprolol. IV antibiotics as ordered. GI prophylactics. Lisinopril, Nifedipine. Additional plan as per the hospital course. Dietary Evaluation Review Comments: 1) Advance pt diet when medically feasible to a [id number]/2gNa diet 2) Continue current plan of care Expected Outcomes/Goals: F/U in 3-5 days Plan discussed with: Patient TRESA MCFARLANE MD May 20, 2024 13:17
--- NOTE | 2024-05-20 22:02 | DVHPN2 ---
Progress Note - Dictate Date Seen: May 20, 2024 Medical Necessity Reason Pt with a Central, PICC or Fol: No Subjective Patient was seen and evaluated in follow up. No acute events overnight. Patient reports feeling better. Noted with additional growth of enterococcus on subculture. Patient has 100ml purulent drainage from pigtail drain from 05/15/24. No new drainage today. Receiving TPN. WBC improved to 13.0. K is low at 2.8. Phos 2.3. Calcium 8.4. Cl 109. BUN <5. vital signs Vital Sign Date Time Temp Pulse Resp B/P (MAP) Pulse Ox O2 Delivery O2 Flow Rate FiO2 05/20/24 21:28 91 18 150/89 05/20/24 21:00 97.5 94 97.5 05/20/24 08:00 Room Air* 0 21 Total Intake and Output 05/19/24 05/19/24 05/20/24 15:00 23:00 07:00 Intake Total 0 ml 0 ml 50 ml Output Total 800 ml Balance 0 ml -800 ml 50 ml medications Current Medications Medications Dose Ordered Sig/Lanette Route Start Time Stop Time Status Last Admin Dose Admin Atenolol 25 mg BID PO 05/10/24 10:00 Hold 05/10/24 21:38 25 MG Levothyroxine Sodium 125 mcg QAM@0600 PO 05/10/24 06:00 05/20/24 05:51 125 MCG Atorvastatin Calcium 40 mg HS PO 05/10/24 22:00 05/20/24 21:26 40 MG Ondansetron HCl 4 mg Q4HP PRN IV 05/09/24 23:00 Hold Acetaminophen 650 mg Q6HP PRN PO 05/09/24 23:00 05/10/24 09:30 650 MG Nitroglycerin 0.4 mg Q5MINP PRN SL 05/09/24 23:00 Enoxaparin Sodium 130 mg Q12HR SC 05/10/24 10:00 UNV Pantoprazole Sodium 40 mg DAILY IV 05/11/24 10:00 05/20/24 11:34 40 MG Baclofen 5 mg Q8HP PRN PO 05/12/24 19:15 Nifedipine 10 mg Q6HR PO 05/13/24 18:00 05/20/24 18:56 10 MG Metoprolol Succinate 25 mg TID PO 05/13/24 14:00 11/10/24 21:27 25 MG Lisinopril 40 mg DAILY PO 05/14/24 10:00 05/20/24 11:36 40 MG Amiodarone HCl 200 mg Q12HR PO 05/15/24 10:00 05/20/24 21:26 200 MG Hydromorphone HCl 0.25 mg Q4HPRN PRN IV 05/15/24 16:15 05/20/24 21:28 0.25 MG Amino Acids 0 ml @ 0 mls/hr PER PHARMACY IV 05/18/24 14:15 Diagnostic Test (Pha) 1 strip Q6HR 05/19/24 00:00 05/20/24 17:08 1 STRIP Insulin Human Regular FOLLOW SLIDING SCALE Q6HR SC 05/19/24 00:00 05/20/24 06:46 2 UNITS Dextrose 50 ml UD IV 05/19/24 00:00 Sodium Chloride 10 ml QSHIFT@10,22 IV 05/18/24 22:00 05/20/24 10:00 10 ML Ceftazidime/ Dextrose 2 gm/ Sodium Chloride 50 ml @ 17.5 mls/hr Q8HR IV 05/19/24 14:00 05/20/24 21:23 17.5 MLS/HR Fat Emulsion Intravenous 150 ml/Sodium Acetate 40 meq/Sodium Phosphate 40 meq/ Potassium Acetate 40 meq/Potassium Phosphate 44 meq/ Magnesium Sulfate 18 meq/ Multivitamins 10 ml/Chromium/ Copper/Manganese/ Zinc 1 ml/Insulin Human Regular 2 units/Amino Acids/ Dextrose 1,225.52 ml @ 51 mls/hr Q24H2M IV 05/20/24 22:00 05/21/24 21:59 objective Physical exam: Vitals and nursing notes reviewed. General: In no acute distress, morbidly obese. HEENT: Normocephalic atraumatic, mucous membranes moist and pink. Neck: Cervical and supraclavicular nodes normal without enlargement. Pulmonary: Clear to auscultation and percussion bilaterally. Cardiac: RRR. No murmur. Abdomen: Soft, nondistended, bowel sounds present all 4 quadrants, no guarding. Musculoskeletal: No deformity. Neuro: Cranial nerves II through XII grossly intact, normal affect and speech, no focal motor deficits. Skin: Warm, dry, normal color and texture, no rash. laboratory and microbiology Laboratory Tests 05/20/24 03:41 05/18/24 07:53 Test 05/20/24 03:41 Range/Units Serum Glucose 139 H 74-106 mg/dL Problem List Acute diverticulitis Acute abdominal pain Elevated troponin Hypokalemia UTI Morbid obesity Assessment/Plan Continue current supportive medical care. Surgery, GI and Cardiology consults. S/p CT-guided drainage of abscess with IR 05/15. SW is arranging HHS and IV Abx. Nutritional support with TPN. Potassium replacement. IV antibiotics. Amiodarone 200 mg BID. Metoprolol 25 mg PO TID. Nifedipine 10 mg PO q6h. Levothyroxine 125 mcg QAM. Protonix 40 mg IV daily. Enoxaparin 130 mg SC q12h. Pain management prn. Additional plan as per the hospital course. Dietary Evaluation Review Comments: 1) Advance pt diet when medically feasible to a [id number]/2gNa diet 2) Continue current plan of care Expected Outcomes/Goals: F/U in 3-5 days Plan discussed with: Patient, Other (RN) SMITHA MCFARLANE DO May 20, 2024 22:02
[2024-05-20] MEDS: TPN PER PHARMACY IV NR (22:32)
[2024-05-21] VITALS (8 sets, daily range): BP systolic 113–177; BP diastolic 59–68; PULSE 87–101; RESP 18–22; TEMP 97.7–98.4; O2SAT 90–95
[2024-05-21 05:29] LABS: Alanine Aminotransferase 13 U/L (7-40); Alkaline Phosphatase 85 U/L (46-116); Anion Gap 5 (5-15); Aspartate Aminotransferase 17 U/L (13-40); Calcium 8.3 mg/dL (8.7-10.4); Carbon Dioxide 26 mmol/L (20-31); Chloride 109 mmol/L (98-107); Glucose 144 mg/dL (74-106); Magnesium 1.7 mg/dL (1.6-2.6); Potassium 3.4 mmol/L (3.5-5.1); Sodium 140 mmol/L (136-145)
[2024-05-21 05:30] LABS: Bilirubin, Total 0.2 mg/dL (0.2-1.0); Phosphorus 2.7 mg/dL (2.4-5.1); Total Protein 5.9 g/dL (5.7-8.2)
[2024-05-21 05:52] LABS: BUN/Creatinine Ratio 9.1 (10.0-20.0); Blood Urea Nitrogen < 5 mg/dL (9-23)
--- NOTE | 2024-05-21 09:25 | DVHPN2 ---
Progress Note - Dictate Date Seen: May 21, 2024 Medical Necessity Reason Pt with a Central, PICC or Fol: No Subjective Patient was seen and evaluated in follow up. No overnight events. The patient reports feeling better since admission. Patient continues to have drainage from pigtail catheter. There is additional growth of enterococcus on subculture). K 3.4, CA 8.3. vital signs Vital Sign Date Time Temp Pulse Resp B/P (MAP) Pulse Ox O2 Delivery O2 Flow Rate FiO2 05/21/24 09:00 98.0 89 20 145/66 (92) 90 98.0 05/20/24 20:00 Room Air* 0 21 Total Intake and Output 05/20/24 05/20/24 05/21/24 15:00 23:00 07:00 Intake Total 200 ml 0 ml Output Total 1000 ml 500 ml Balance -800 ml -500 ml medications Current Medications Medications Dose Ordered Sig/Lanette Route Start Time Stop Time Status Last Admin Dose Admin Atenolol 25 mg BID PO 05/10/24 10:00 Hold 05/10/24 21:38 25 MG Levothyroxine Sodium 125 mcg QAM@0600 PO 05/10/24 06:00 05/20/24 05:51 125 MCG Atorvastatin Calcium 40 mg HS PO 05/10/24 22:00 05/20/24 21:26 40 MG Ondansetron HCl 4 mg Q4HP PRN IV 05/09/24 23:00 Hold Acetaminophen 650 mg Q6HP PRN PO 05/09/24 23:00 05/10/24 09:30 650 MG Nitroglycerin 0.4 mg Q5MINP PRN SL 05/09/24 23:00 Enoxaparin Sodium 130 mg Q12HR SC 05/10/24 10:00 UNV Pantoprazole Sodium 40 mg DAILY IV 05/11/24 10:00 05/20/24 11:34 40 MG Baclofen 5 mg Q8HP PRN PO 05/12/24 19:15 Nifedipine 10 mg Q6HR PO 05/13/24 18:00 05/21/24 06:10 10 MG Metoprolol Succinate 25 mg TID PO 05/13/24 14:00 05/21/24 06:11 25 MG Lisinopril 40 mg DAILY PO 05/14/24 10:00 05/20/24 11:36 40 MG Amiodarone HCl 200 mg Q12HR PO 05/15/24 10:00 05/20/24 21:26 200 MG Hydromorphone HCl 0.25 mg Q4HPRN PRN IV 05/15/24 16:15 05/21/24 06:10 0.25 MG Amino Acids 0 ml @ 0 mls/hr PER PHARMACY IV 05/18/24 14:15 Diagnostic Test (Pha) 1 strip Q6HR 05/19/24 00:00 05/21/24 06:13 1 STRIP Insulin Human Regular FOLLOW SLIDING SCALE Q6HR SC 05/19/24 00:00 05/21/24 06:12 2 UNITS Dextrose 50 ml UD IV 05/19/24 00:00 Sodium Chloride 10 ml QSHIFT@10,22 IV 05/18/24 22:00 05/20/24 22:26 10 ML Ceftazidime/ Dextrose 2 gm/ Sodium Chloride 50 ml @ 17.5 mls/hr Q8HR IV 05/19/24 14:00 05/21/24 06:37 17.5 MLS/HR Fat Emulsion Intravenous 150 ml/Sodium Acetate 40 meq/Sodium Phosphate 40 meq/ Potassium Acetate 40 meq/Potassium Phosphate 44 meq/ Magnesium Sulfate 18 meq/ Multivitamins 10 ml/Chromium/ Copper/Manganese/ Zinc 1 ml/Insulin Human Regular 2 units/Amino Acids/ Dextrose 1,225.52 ml @ 51 mls/hr Q24H2M IV 05/20/24 22:00 05/21/24 21:59 05/20/24 22:32 51 MLS/HR objective GENERAL: Awake, alert, oriented. Morbidly obese. LUNGS: Clear. CARDIOVASCULAR: Tachycardic. ABDOMEN: Soft, tender in the left lower quadrant, nondistended, bowel sounds present all 4 quadrants, no guarding. laboratory and microbiology Laboratory Tests 05/21/24 04:30 05/18/24 07:53 Test 05/21/24 04:30 Range/Units Serum Glucose 144 H 74-106 mg/dL Problem List Atrial fibrillation with rapid ventricular response. Acute diverticulitis with microperforation. Morbid obesity. Profound leukocytosis. Acute abdominal pain. Elevated troponin. Hypokalemia. UTI. Morbid obesity. Diarrhea. Hypertension. Hypothyroidism. Assessment/Plan Continued all current supportive medical care. Morphine and [place] for pain management. Amiodarone. Lipitor, Metoprolol. IV antibiotics as ordered. GI prophylactics. Lisinopril, Nifedipine. Additional plan as per the hospital course. Dietary Evaluation Review Comments: 1) Advance pt diet when medically feasible to a [id number]/2gNa diet 2) Continue current plan of care Expected Outcomes/Goals: F/U in 3-5 days Plan discussed with: Patient TRESA MCFARLANE MD May 21, 2024 09:25
[2024-05-21] MEDS: POTASSIUM PHOSPHATE 22 MEQ in SODIUM CHL 0.9% 100 ML IV ONE (14:51)
--- NOTE | 2024-05-21 16:22 | DVHPN2 ---
Progress Note Date Seen: May 21, 2024 Medical Necessity Reason Pt with a Central, PICC or Fol: No Objective vital signs Vital Sign Date Time Temp Pulse Resp B/P (MAP) Pulse Ox O2 Delivery O2 Flow Rate FiO2 05/21/24 14:50 87 18 132/52 05/21/24 13:00 98.4 92 98.4 05/21/24 08:00 Room Air* 0 21 Total Intake and Output 05/20/24 05/20/24 05/21/24 15:00 23:00 07:00 Intake Total 200 ml 0 ml Output Total 1000 ml 500 ml Balance -800 ml -500 ml medications Current Medications Medications Dose Ordered Sig/Lanette Route Start Time Stop Time Status Last Admin Dose Admin Atenolol 25 mg BID PO 05/10/24 10:00 Hold 05/10/24 21:38 25 MG Levothyroxine Sodium 125 mcg QAM@0600 PO 05/10/24 06:00 05/21/24 10:19 125 MCG Atorvastatin Calcium 40 mg HS PO 05/10/24 22:00 05/20/24 21:26 40 MG Ondansetron HCl 4 mg Q4HP PRN IV 05/09/24 23:00 Hold Acetaminophen 650 mg Q6HP PRN PO 05/09/24 23:00 05/10/24 09:30 650 MG Nitroglycerin 0.4 mg Q5MINP PRN SL 05/09/24 23:00 Enoxaparin Sodium 130 mg Q12HR SC 05/10/24 10:00 UNV Pantoprazole Sodium 40 mg DAILY IV 05/11/24 10:00 05/21/24 10:17 40 MG Baclofen 5 mg Q8HP PRN PO 05/12/24 19:15 Nifedipine 10 mg Q6HR PO 05/13/24 18:00 05/21/24 12:32 10 MG Metoprolol Succinate 25 mg TID PO 05/13/24 14:00 05/21/24 13:35 25 MG Lisinopril 40 mg DAILY PO 05/14/24 10:00 05/21/24 10:18 40 MG Amiodarone HCl 200 mg Q12HR PO 05/15/24 10:00 05/21/24 10:18 200 MG Hydromorphone HCl 0.25 mg Q4HPRN PRN IV 05/15/24 16:15 05/21/24 14:50 0.25 MG Amino Acids 0 ml @ 0 mls/hr PER PHARMACY IV 05/18/24 14:15 Diagnostic Test (Pha) 1 strip Q6HR 05/19/24 00:00 05/21/24 11:53 1 STRIP Insulin Human Regular FOLLOW SLIDING SCALE Q6HR SC 05/19/24 00:00 05/21/24 06:12 2 UNITS Dextrose 50 ml UD IV 05/19/24 00:00 Sodium Chloride 10 ml QSHIFT@10,22 IV 05/18/24 22:00 05/21/24 10:19 10 ML Ceftazidime/ Dextrose 2 gm/ Sodium Chloride 50 ml @ 17.5 mls/hr Q8HR IV 05/19/24 14:00 05/21/24 13:35 17.5 MLS/HR Fat Emulsion Intravenous 150 ml/Sodium Acetate 40 meq/Sodium Phosphate 40 meq/ Potassium Acetate 40 meq/Potassium Phosphate 44 meq/ Magnesium Sulfate 18 meq/ Multivitamins 10 ml/Chromium/ Copper/Manganese/ Zinc 1 ml/Insulin Human Regular 2 units/Amino Acids/ Dextrose 1,225.52 ml @ 51 mls/hr Q24H2M IV 05/20/24 22:00 05/21/24 21:59 05/20/24 22:32 51 MLS/HR Fat Emulsion Intravenous 150 ml/Sodium Phosphate 80 meq/ Potassium Acetate 100 meq/Magnesium Sulfate 24 meq/ Multivitamins 10 ml/Chromium/ Copper/Manganese/ Zinc 1 ml/Amino Acids/Dextrose 1,337 ml @ 56 mls/hr [id number] IV 05/21/24 22:00 05/22/24 21:59 laboratory and microbiology Laboratory Tests 05/21/24 04:30 05/18/24 07:53 Test 05/21/24 04:30 Range/Units Serum Glucose 144 H 74-106 mg/dL Microbiology Date/Time Source Procedure Growth Status 05/15/24 13:15 Aspirate Gram Stain - Final Complete 05/15/24 13:15 Body Fluid Culture - Final Escherichia coli Proteus mirabilis Enterococcus faecium Yeast, not [place] albicans Complete 05/09/24 21:14 Voided Urine Urine Culture - Final Complete Problem List/Assessment/Plan Problem List/Assessment/Plan AFEBRILE VSS ABD SOFT TENDER NO REBOUND FLATUS + WBC TRENDING DOWN IR DRAINAGE OF INTRAABD ABSCESS DONE AND EVAL ONGOING PURULENT DRAINAGE NOTED IN DRAINAGE BAG CONTINUE CLOSE OBSERVATION IV ABX NURSE AND FAMILY AT BEDSIDE REPEAT LABS AM Plan discussed with: Other Dietary Evaluation Review Comments: 1) Advance pt diet when medically feasible to a [id number]/2gNa diet 2) Continue current plan of care Expected Outcomes/Goals: F/U in 3-5 days CATALINO DEMPSEY MD May 21, 2024 16:22
--- NOTE | 2024-05-21 19:18 | DVHPN2 ---
Progress Note - Dictate Date Seen: May 21, 2024 Medical Necessity Reason Pt with a Central, PICC or Fol: No Subjective No new complaints S/P PICC line placement, patient is getting IV TPN Pigtail catheter has started draining pus over the last 24 hours after the repeat CT, total of [address] abdomen suggestive of persistent pelvic abscess and the pigtail catheter was not within the collection but since then it has started draining possibly due to adjustment by the radiologist Abdominal pain has improved ; leukocytosis has improved Patient is having bowel movements vital signs Vital Sign Date Time Temp Pulse Resp B/P (MAP) Pulse Ox O2 Delivery O2 Flow Rate FiO2 05/21/24 18:29 141/62 05/21/24 18:00 89 21 05/21/24 17:00 98.1 92 98.1 05/21/24 08:00 Room Air* 0 21 Total Intake and Output 05/20/24 05/20/24 05/21/24 15:00 23:00 07:00 Intake Total 200 ml 0 ml Output Total 1000 ml 500 ml Balance -800 ml -500 ml medications Current Medications Medications Dose Ordered Sig/Lanette Route Start Time Stop Time Status Last Admin Dose Admin Atenolol 25 mg BID PO 05/10/24 10:00 Hold 05/10/24 21:38 25 MG Levothyroxine Sodium 125 mcg QAM@0600 PO 05/10/24 06:00 05/21/24 10:19 125 MCG Atorvastatin Calcium 40 mg HS PO 05/10/24 22:00 05/20/24 21:26 40 MG Ondansetron HCl 4 mg Q4HP PRN IV 05/09/24 23:00 Hold Acetaminophen 650 mg Q6HP PRN PO 05/09/24 23:00 05/10/24 09:30 650 MG Nitroglycerin 0.4 mg Q5MINP PRN SL 05/09/24 23:00 Enoxaparin Sodium 130 mg Q12HR SC 05/10/24 10:00 UNV Pantoprazole Sodium 40 mg DAILY IV 05/11/24 10:00 05/21/24 10:17 40 MG Baclofen 5 mg Q8HP PRN PO 05/12/24 19:15 Nifedipine 10 mg Q6HR PO 05/13/24 18:00 05/21/24 18:29 10 MG Metoprolol Succinate 25 mg TID PO 05/13/24 14:00 05/21/24 13:35 25 MG Lisinopril 40 mg DAILY PO 05/14/24 10:00 05/21/24 10:18 40 MG Amiodarone HCl 200 mg Q12HR PO 05/15/24 10:00 05/21/24 10:18 200 MG Hydromorphone HCl 0.25 mg Q4HPRN PRN IV 05/15/24 16:15 05/21/24 14:50 0.25 MG Amino Acids 0 ml @ 0 mls/hr PER PHARMACY IV 05/18/24 14:15 Diagnostic Test (Pha) 1 strip Q6HR 05/19/24 00:00 05/21/24 18:29 1 STRIP Insulin Human Regular FOLLOW SLIDING SCALE Q6HR SC 05/19/24 00:00 05/21/24 18:38 2 UNITS Dextrose 50 ml UD IV 05/19/24 00:00 Sodium Chloride 10 ml QSHIFT@10,22 IV 05/18/24 22:00 05/21/24 10:19 10 ML Ceftazidime/ Dextrose 2 gm/ Sodium Chloride 50 ml @ 17.5 mls/hr Q8HR IV 05/19/24 14:00 05/21/24 13:35 17.5 MLS/HR Fat Emulsion Intravenous 150 ml/Sodium Acetate 40 meq/Sodium Phosphate 40 meq/ Potassium Acetate 40 meq/Potassium Phosphate 44 meq/ Magnesium Sulfate 18 meq/ Multivitamins 10 ml/Chromium/ Copper/Manganese/ Zinc 1 ml/Insulin Human Regular 2 units/Amino Acids/ Dextrose 1,225.52 ml @ 51 mls/hr Q24H2M IV 05/20/24 22:00 05/21/24 21:59 05/20/24 22:32 51 MLS/HR Fat Emulsion Intravenous 150 ml/Sodium Phosphate 80 meq/ Potassium Acetate 100 meq/Magnesium Sulfate 24 meq/ Multivitamins 10 ml/Chromium/ Copper/Manganese/ Zinc 1 ml/Amino Acids/Dextrose 1,337 ml @ 56 mls/hr [id number] IV 05/21/24 22:00 05/22/24 21:59 objective General examination- No acute distress , was able to ambulate to bathroom;morbidly obese female HEENT- PEERLA, EOMI intact Heart S1-S2 audible, rate and rhythm regular, no murmur Lungs- CTAB, no wheeze or rhonchi Abdomen- distended, lower abdominal tenderness, bowel sound+ Musculoskeletal-no acute joint swelling or tenderness or redness Lower extremity- no leg edema, but pain in the left lateral thigh Neurological- cranial nerves intact, no acute dysarthria or dysphagia Skin- no acute rash or purpura laboratory and microbiology Laboratory Tests 05/21/24 04:30 05/18/24 07:53 Test 05/21/24 04:30 Range/Units Serum Glucose 144 H 74-106 mg/dL Problems(with codes): (1) Diverticulitis of intestine with perforation and abscess (2) Elevated brain natriuretic peptide (BNP) level (3) Non-STEMI (non-ST elevated myocardial infarction) (4) Elevated LFTs (5) Diverticulitis (6) Urinary tract infection (7) Cholelithiasis Prognosis PLAN IV ABx Clear liquids ON IV TPN IV Abx PICC line placed Dietary Evaluation Review Comments: 1) Advance pt diet when medically feasible to a [id number]/[id number] diet 2) Continue current plan of care Expected Outcomes/Goals: F/U in 3-5 days Plan discussed with: Patient MITCHELL DEMPSEY MD May 21, 2024 19:18
--- NOTE | 2024-05-21 20:22 | DVHPN2 ---
Progress Note - Dictate Date Seen: May 21, 2024 Medical Necessity Reason Pt with a Central, PICC or Fol: No Subjective Patient was seen and evaluated in follow up. No acute events overnight. Patient reports feeling better. Abdominal pain improved. IR evaluated and per Dr. Mikey To no repositioning of existing drain is needed at this time. Purulent drainage noted in drainage bag. Leukocytosis improved. Patient will be going home with pigtail tube. vital signs Vital Sign Date Time Temp Pulse Resp B/P (MAP) Pulse Ox O2 Delivery O2 Flow Rate FiO2 05/21/24 18:29 141/62 05/21/24 18:00 89 21 05/21/24 17:00 98.1 92 98.1 05/21/24 08:00 Room Air* 0 21 Total Intake and Output 05/20/24 05/20/24 05/21/24 14:59 22:59 06:59 Intake Total 200 ml 0 ml Output Total 1000 ml 500 ml Balance -800 ml -500 ml medications Current Medications Medications Dose Ordered Sig/Lanette Route Start Time Stop Time Status Last Admin Dose Admin Atenolol 25 mg BID PO 05/10/24 10:00 Hold 05/10/24 21:38 25 MG Levothyroxine Sodium 125 mcg QAM@0600 PO 05/10/24 06:00 05/21/24 10:19 125 MCG Atorvastatin Calcium 40 mg HS PO 05/10/24 22:00 05/20/24 21:26 40 MG Ondansetron HCl 4 mg Q4HP PRN IV 05/09/24 23:00 Hold Acetaminophen 650 mg Q6HP PRN PO 05/09/24 23:00 05/10/24 09:30 650 MG Nitroglycerin 0.4 mg Q5MINP PRN SL 05/09/24 23:00 Enoxaparin Sodium 130 mg Q12HR SC 05/10/24 10:00 UNV Pantoprazole Sodium 40 mg DAILY IV 05/11/24 10:00 05/21/24 10:17 40 MG Baclofen 5 mg Q8HP PRN PO 05/12/24 19:15 Nifedipine 10 mg Q6HR PO 05/13/24 18:00 05/21/24 18:29 10 MG Metoprolol Succinate 25 mg TID PO 05/13/24 14:00 05/21/24 13:35 25 MG Lisinopril 40 mg DAILY PO 05/14/24 10:00 05/21/24 10:18 40 MG Amiodarone HCl 200 mg Q12HR PO 05/15/24 10:00 05/21/24 10:18 200 MG Hydromorphone HCl 0.25 mg Q4HPRN PRN IV 05/15/24 16:15 05/21/24 14:50 0.25 MG Amino Acids 0 ml @ 0 mls/hr PER PHARMACY IV 05/18/24 14:15 Diagnostic Test (Pha) 1 strip Q6HR 05/19/24 00:00 05/21/24 18:29 1 STRIP Insulin Human Regular FOLLOW SLIDING SCALE Q6HR SC 05/19/24 00:00 05/21/24 18:38 2 UNITS Dextrose 50 ml UD IV 05/19/24 00:00 Sodium Chloride 10 ml QSHIFT@10,22 IV 05/18/24 22:00 05/21/24 10:19 10 ML Ceftazidime/ Dextrose 2 gm/ Sodium Chloride 50 ml @ 17.5 mls/hr Q8HR IV 05/19/24 14:00 05/21/24 13:35 17.5 MLS/HR Fat Emulsion Intravenous 150 ml/Sodium Acetate 40 meq/Sodium Phosphate 40 meq/ Potassium Acetate 40 meq/Potassium Phosphate 44 meq/ Magnesium Sulfate 18 meq/ Multivitamins 10 ml/Chromium/ Copper/Manganese/ Zinc 1 ml/Insulin Human Regular 2 units/Amino Acids/ Dextrose 1,225.52 ml @ 51 mls/hr Q24H2M IV 05/20/24 22:00 05/21/24 21:59 05/20/24 22:32 51 MLS/HR Fat Emulsion Intravenous 150 ml/Sodium Phosphate 80 meq/ Potassium Acetate 100 meq/Magnesium Sulfate 24 meq/ Multivitamins 10 ml/Chromium/ Copper/Manganese/ Zinc 1 ml/Amino Acids/Dextrose 1,337 ml @ 56 mls/hr [id number] IV 05/21/24 22:00 05/22/24 21:59 objective Physical exam: Vitals and nursing notes reviewed. General: In no acute distress, morbidly obese. HEENT: Normocephalic atraumatic, mucous membranes moist and pink. Neck: Cervical and supraclavicular nodes normal without enlargement. Pulmonary: Clear to auscultation and percussion bilaterally. Cardiac: RRR. No murmur. Abdomen: Soft, nondistended, bowel sounds present all 4 quadrants, no guarding. Musculoskeletal: No deformity. Neuro: Cranial nerves II through XII grossly intact, normal affect and speech, no focal motor deficits. Skin: Warm, dry, normal color and texture, no rash. laboratory and microbiology Laboratory Tests 05/21/24 04:30 05/18/24 07:53 Test 05/21/24 04:30 Range/Units Serum Glucose 144 H 74-106 mg/dL Problem List Acute diverticulitis Acute abdominal pain Elevated troponin Hypokalemia UTI Morbid obesity Assessment/Plan Continue all current supportive medical care. Surgery, GI and Cardiology consults. S/p CT-guided drainage of abscess with IR 05/15. SW is arranging HHS and IV Abx. I spoke with patient's daughter over the phone and updated POC for likely home with IV antibiotics vs SNF placement. Patient will need IV Zosyn to be infusing 24hr continuously per ID via PICC until 06/15/24. Nutritional support with TPN per pharmacy. Continued on IV Ceftazidime. Protonix 40 mg IV daily. Enoxaparin 130 mg SC q12h. Pain management prn. Additional plan as per the hospital course. Dietary Evaluation Review Comments: 1) Advance pt diet when medically feasible to a [id number] diet 2) Continue current plan of care Expected Outcomes/Goals: F/U in 3-5 days Plan discussed with: Patient, Other (Daughter, over the phone ) SMITHA MCFARLANE DO May 21, 2024 20:22
[2024-05-21] MEDS: TPN PER PHARMACY IV NR (21:42)
--- NOTE | 2024-05-21 23:04 | DVHPN2 ---
Consult Progress Note Date Seen: May 21, 2024 Subjective Patient reports: Feels better (having bowel movements , not tolerating diet and remains NPO , new midline in place) Objective vital signs Vital Sign Date Time Temp Pulse Resp B/P (MAP) Pulse Ox O2 Delivery O2 Flow Rate FiO2 05/21/24 22:00 97.7 89 19 145/65 (91) 90 97.7 05/21/24 08:00 Room Air* 0 21 Total Intake and Output 05/20/24 05/20/24 05/21/24 15:00 23:00 07:00 Intake Total 200 ml 0 ml Output Total 1000 ml 500 ml Balance -800 ml -500 ml medications Current Medications Medications Dose Ordered Sig/Lanette Route Start Time Stop Time Status Last Admin Dose Admin Atenolol 25 mg BID PO 05/10/24 10:00 Hold 05/10/24 21:38 25 MG Levothyroxine Sodium 125 mcg QAM@0600 PO 05/10/24 06:00 05/21/24 10:19 125 MCG Atorvastatin Calcium 40 mg HS PO 05/10/24 22:00 05/21/24 21:52 40 MG Ondansetron HCl 4 mg Q4HP PRN IV 05/09/24 23:00 Hold Acetaminophen 650 mg Q6HP PRN PO 05/09/24 23:00 05/10/24 09:30 650 MG Nitroglycerin 0.4 mg Q5MINP PRN SL 05/09/24 23:00 Enoxaparin Sodium 130 mg Q12HR SC 05/10/24 10:00 UNV Pantoprazole Sodium 40 mg DAILY IV 05/11/24 10:00 05/21/24 10:17 40 MG Baclofen 5 mg Q8HP PRN PO 05/12/24 19:15 Nifedipine 10 mg Q6HR PO 05/13/24 18:00 05/21/24 18:29 10 MG Metoprolol Succinate 25 mg TID PO 05/13/24 14:00 05/21/24 21:53 25 MG Lisinopril 40 mg DAILY PO 05/14/24 10:00 05/21/24 10:18 40 MG Amiodarone HCl 200 mg Q12HR PO 05/15/24 10:00 05/21/24 21:52 200 MG Hydromorphone HCl 0.25 mg Q4HPRN PRN IV 05/15/24 16:15 05/21/24 21:24 0.25 MG Amino Acids 0 ml @ 0 mls/hr PER PHARMACY IV 05/18/24 14:15 Diagnostic Test (Pha) 1 strip Q6HR 05/19/24 00:00 05/21/24 18:29 1 STRIP Insulin Human Regular FOLLOW SLIDING SCALE Q6HR SC 05/19/24 00:00 05/21/24 18:38 2 UNITS Dextrose 50 ml UD IV 05/19/24 00:00 Sodium Chloride 10 ml QSHIFT@10,22 IV 05/18/24 22:00 05/21/24 21:42 10 ML Fat Emulsion Intravenous 150 ml/Sodium Phosphate 80 meq/ Potassium Acetate 100 meq/Magnesium Sulfate 24 meq/ Multivitamins 10 ml/Chromium/ Copper/Manganese/ Zinc 1 ml/Amino Acids/Dextrose 1,337 ml @ 56 mls/hr [id number] IV 05/21/24 22:00 05/22/24 21:59 05/21/24 21:42 56 MLS/HR Piperacillin Sod/ Tazobactam Sod 100 ml @ 25 mls/hr Q6HR IV 05/22/24 00:00 Physical Exam: General: NAD Neck: Supple. No masses. HEENT: PERRL. Normal lids and conjunctiva. Moist mucous membranes. Oropharynx without lesions, exudates, or excessive erythema. Normal appearance of the external aspects of the nose and ears. Heart: Regular rhythm, normal rate. No murmur. No lower extremity edema. Lungs: Normal respiratory effort. Clear to auscultation bilaterally. No wheezes. No crackles. Abdomen: Soft. slightly tender. Non-distended. No masses or abdominal hernia. Msk: No digital cyanosis. Normal strength and tone in all 4 limbs. Skin: Warm and dry, no rashes. Neuro: Alert. No facial droop or slurred speech. Extra-ocular movements intact. Sensation intact to soft touch in all 4 limbs. Psych: Appropriate mood. Full affect. Oriented to person, place, time, and situation. laboratory and microbiology Laboratory Tests 05/21/24 04:30 05/18/24 07:53 Test 05/21/24 04:30 Range/Units Serum Glucose 144 H 74-106 mg/dL Problem List/Assessment/Plan Problems(with codes): (1) Atrial fibrillation (2) Hiatal hernia (3) Cholelithiasis (4) Urinary tract infection (5) Diverticulitis (6) Elevated LFTs (7) Non-STEMI (non-ST elevated myocardial infarction) (8) Elevated brain natriuretic peptide (BNP) level (9) Diverticulitis of intestine with perforation and abscess Problem List/Assessment/Plan ID Problem List: - Acute diverticulitis - Diverticular abscess - Acute abdominal pain UTI - Elevated troponin - Hypokalemia - Morbid obesity - Diarrhea - Hypertension - Hypothyroidism Assessment: This is a 73 y.o. female with a past medical history of hypertension, hyperlipidemia, kidney transplant, hypothyroidism, morbid obesity, and end-stage renal disease who presents with lower abdominal pain on May 09. The pain was nonradiating and associated with nausea, diarrhea, and poor appetite. The patient visited [facility] urgent care on May 09 for unprovoked onset of persisting symptoms except with the exception of diarrhea for the past days. The patient reported experiencing urinary retention, constipation, and fever initially for 2 days, then it subsided on its own. CT abdomen revealed diverticulitis with air in the retroperitoneum, findings suggestive of abscess, cholestasis, and small hiatal hernia. Chest X-ray showed no acute findings, and HIDA scan showed nonvisualization of the gallbladder suggestive of cystic duct obstruction. Repeat CT abdomen on May 15 showed moderate fat stranding and induration of the central mesentery, with a 6.5 by 6.2 cm collection of air and minimal fluid suggestive of acute diverticulitis with rupture and associated abscess. The patient underwent IR drainage of the pelvic abscess on July 16. Culture revealed E. coli and Proteus mirabilis, both sensitive to ANCEF and Unison. The patient has been on ceftriaxone and Flagyl. 05/21: appears to require prolonged TPN needs , pharmacy is not providing ceftazidime. Plan: - Start Zosyn for 1 month and then a follow up image needed at the end of the month - Monitor drainage and consider additional IR drainage or surgical I&D if necessary - post IR drainage CT suggests persistence of a large abscess, concern being that IV antibiotics may not be sufficient to clear infection or penetrate an abscess this size (expected around 250cc, only 105cc drained). - Discuss the need for extended IV antibiotic therapy, potentially 30 days with follow up CT abd pelvis afterwards Isolation Precautions: standard Assessment and plan were discussed with the patient as written above. Plan is subject to change pending incorporation of new incoming information/diagnostics. Updates may be added as an addendum at the bottom (OR TOP) of this note. Thank you for the interesting consult. ID will continue to follow. Please contact Infectious Disease for any questions or concerns. Mellissa Jack Medical Plan discussed with: Other Dietary Evaluation Review Comments: 1) Advance pt diet when medically feasible to a [id number]/[id number] diet 2) Continue current plan of care Expected Outcomes/Goals: F/U in 3-5 days QUINCY HURST MD May 21, 2024 23:04
[2024-05-22] VITALS (9 sets, daily range): BP systolic 125–157; BP diastolic 50–71; PULSE 79–97; RESP 16–18; TEMP 97.9–98.1; O2SAT 86–96
[2024-05-22] MEDS: PIPERACILLIN-TAZOB 3.375GM 100 ML IV SCH (00:30)
[2024-05-22 06:47] LABS: Basophils # (auto) 0.1 10 ^3/uL (0-0.2); Eosinophils # (auto) 0.4 10 ^3/uL (0-0.8); Hemoglobin 10.5 g/dL (12.2-16.2); Mean Corpuscular Hemoglobin 29.9 pg (28.0-32.0); Neutrophils # (auto) 4.8 10 ^3/uL (1.6-8.6); Nucleated Red Blood Cells % 0.1 %; Red Cell Distribution Width 15.6 % (11.8-14.3)
[2024-05-22 06:49] LABS: Calcium 8.6 mg/dL (8.7-10.4); Potassium 3.5 mmol/L (3.5-5.1)
[2024-05-22 06:50] LABS: Eosinophils % (auto) 5.7 % (0.0-7.0); Hematocrit 31.7 % (36.0-46.0); Lymphocytes # (auto) 1.7 10 ^3/uL (0.4-5.4); Lymphocytes % (auto) 21.2 % (10.0-50.0); Mean Corpuscular Hgb Conc. 33.2 g/dL (32.0-36.0); Monocytes # (auto) 0.8 10 ^3/uL (0-1.3); Monocytes % (auto) 10.5 % (0.0-12.0); Neutrophils % (auto) 61.6 % (37.0-80.0); Platelet Count (auto) 670 10^3/uL (140-450); Red Blood Cells 3.52 10^6/uL (4.0-5.20); White Blood Cell 7.8 10^3/uL (4.4-10.8)
[2024-05-22 06:54] LABS: Albumin 3.2 g/dL (3.2-4.8)
[2024-05-22 06:55] LABS: BUN/Creatinine Ratio 16.1 (10.0-20.0); Magnesium 2.1 mg/dL (1.6-2.6)
[2024-05-22 06:57] LABS: Phosphorus 3.5 mg/dL (2.4-5.1)
--- NOTE | 2024-05-22 13:21 | DVHPN2 ---
Progress Note - Dictate Date Seen: May 22, 2024 Medical Necessity Reason Pt with a Central, PICC or Fol: No Subjective Patient was seen and evaluated in follow up. Patient reports abdominal pain is improving. Patient has purulent drainage from pigtail drain. H&H stable. WBC corrected. vital signs Vital Sign Date Time Temp Pulse Resp B/P (MAP) Pulse Ox O2 Delivery O2 Flow Rate FiO2 05/22/24 11:54 136/60 05/22/24 10:43 79 18 05/22/24 09:00 97.9 95 97.9 05/22/24 08:10 Room Air* 0 21 Total Intake and Output 05/21/24 05/21/24 05/22/24 15:00 23:00 07:00 Intake Total 50 ml 1275.52 ml 100 ml Output Total 0 ml Balance 50 ml 1275.52 ml 100 ml medications Current Medications Medications Dose Ordered Sig/Lanette Route Start Time Stop Time Status Last Admin Dose Admin Atenolol 25 mg BID PO 05/10/24 10:00 Hold 05/10/24 21:38 25 MG Levothyroxine Sodium 125 mcg QAM@0600 PO 05/10/24 06:00 05/22/24 06:46 125 MCG Atorvastatin Calcium 40 mg HS PO 05/10/24 22:00 05/21/24 21:52 40 MG Ondansetron HCl 4 mg Q4HP PRN IV 05/09/24 23:00 Hold Acetaminophen 650 mg Q6HP PRN PO 05/09/24 23:00 05/10/24 09:30 650 MG Nitroglycerin 0.4 mg Q5MINP PRN SL 05/09/24 23:00 Enoxaparin Sodium 130 mg Q12HR SC 05/10/24 10:00 UNV Pantoprazole Sodium 40 mg DAILY IV 05/11/24 10:00 05/22/24 10:05 40 MG Baclofen 5 mg Q8HP PRN PO 05/12/24 19:15 Nifedipine 10 mg Q6HR PO 05/13/24 18:00 05/22/24 11:54 10 MG Metoprolol Succinate 25 mg TID PO 05/13/24 14:00 05/22/24 06:46 25 MG Lisinopril 40 mg DAILY PO 05/14/24 10:00 05/22/24 10:04 40 MG Amiodarone HCl 200 mg Q12HR PO 05/15/24 10:00 05/22/24 10:05 200 MG Hydromorphone HCl 0.25 mg Q4HPRN PRN IV 05/15/24 16:15 05/22/24 10:05 0.25 MG Amino Acids 0 ml @ 0 mls/hr PER PHARMACY IV 05/18/24 14:15 Diagnostic Test (Pha) 1 strip Q6HR 05/19/24 00:00 05/22/24 11:45 1 STRIP Insulin Human Regular FOLLOW SLIDING SCALE Q6HR SC 05/19/24 00:00 05/22/24 12:00 2 UNITS Dextrose 50 ml UD IV 05/19/24 00:00 Sodium Chloride 10 ml QSHIFT@10,22 IV 05/18/24 22:00 05/22/24 10:06 10 ML Fat Emulsion Intravenous 150 ml/Sodium Phosphate 80 meq/ Potassium Acetate 100 meq/Magnesium Sulfate 24 meq/ Multivitamins 10 ml/Chromium/ Copper/Manganese/ Zinc 1 ml/Amino Acids/Dextrose 1,337 ml @ 56 mls/hr [id number] IV 05/21/24 22:00 05/22/24 21:59 05/21/24 21:42 56 MLS/HR Piperacillin Sod/ Tazobactam Sod 100 ml @ 25 mls/hr Q6HR IV 05/22/24 00:00 05/22/24 11:53 25 MLS/HR Fat Emulsion Intravenous 150 ml/Sodium Phosphate 40 meq/ Potassium Chloride 40 meq/ Potassium Acetate 20 meq/Potassium Phosphate 44 meq/ Magnesium Sulfate 24 meq/ Multivitamins 10 ml/Chromium/ Copper/Manganese/ Zinc 1 ml/Insulin Human Regular 2 units/Amino Acids/ Dextrose 1,317.02 ml @ 55 mls/hr [id number] IV 05/22/24 22:00 05/23/24 21:56 Albumin Human 100 ml @ 100 mls/hr Q12HR IV 05/26/24 22:00 05/27/24 22:59 UNV Albumin Human 100 ml @ 100 mls/hr Q12HR IV 05/25/24 10:00 05/26/24 10:59 UNV Furosemide 40 mg BIDD IV 06/01/24 22:00 UNV objective GENERAL: Awake, alert, oriented. Morbidly obese. LUNGS: Clear. CARDIOVASCULAR: Tachycardic. ABDOMEN: Soft, tender in the left lower quadrant, nondistended, bowel sounds present all 4 quadrants, no guarding. laboratory and microbiology Laboratory Tests 05/22/24 06:00 Test 05/22/24 06:00 Range/Units Serum Glucose 133 H 74-106 mg/dL Problem List Atrial fibrillation with rapid ventricular response. Acute diverticulitis with microperforation. Morbid obesity. Profound leukocytosis. Acute abdominal pain. Elevated troponin. Hypokalemia. UTI. Morbid obesity. Diarrhea. Hypertension. Hypothyroidism. Assessment/Plan Continued all current supportive medical care. Morphine and [place] for pain management. Amiodarone. Lipitor, Metoprolol. IV antibiotics as ordered. GI prophylactics. Lisinopril, Nifedipine. Additional plan as per the hospital course. Dietary Evaluation Review Comments: 1) Advance pt diet when medically feasible to a [id number]/[id number] diet 2) Continue current plan of care Expected Outcomes/Goals: F/U in 3-5 days Plan discussed with: Patient TRESA MCFARLANE MD May 22, 2024 13:21
--- NOTE | 2024-05-22 14:12 | DVH ---
Exam: US US GUIDED VASCULAR ACCESS Date: 05/18/2024 02:26 PM Clinical History: PICC LINE PLACEMENT Comparison: None Findings: Targeted sonographic evaluation of the upper extremity was obtained utilizing grayscale and color Do ppler imaging. IMPRESSION: Sonographic assistance for central line placement. Please refer to procedural report for detailed fin dings.
[2024-05-22] MEDS: POTASSIUM CHL 20MEQ/100ML 100 ML IV ONE ×2 (14:15→17:57)
--- NOTE | 2024-05-22 14:19 | DVH ---
BILATERAL Lower Extremity Arterial Duplex Date: 05/22/2024 01:36 PM Clinical History: EDEMA IN THE LEGS Comparison: None Technique: Duplex Doppler evaluation including color Doppler and spectral/pulsed waveform analysis of the lower extremity arteries was performed. 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 LEFT: Peak systolic velocities are as follows: BED MACHINE OPERATOR 211 cm/s Deep femoral 125 cm/s SFA proximal 169 cm/s SFA mid-portion 141 cm/s SFA distal 162 cm/s Popliteal 113 cm/s Posterior tibial 74 cm/s Anterior tibial 116 cm/s Dorsalis pedis 113 cm/s Triphasic waveforms throughout the left lower extremity arteries. IMPRESSION: No hemodynamically significant stenosis of bilateral lower extremity arteries.
[2024-05-22] MEDS: POTASSIUM CHL 20MEQ/100ML 0 ML IV ONE (16:48)
--- NOTE | 2024-05-22 18:36 | DVHPN2 ---
Progress Note - Dictate Date Seen: May 22, 2024 Medical Necessity Reason Pt with a Central, PICC or Fol: No Subjective No new complaints S/P PICC line placement, patient is getting IV TPN Pigtail catheter drained 100 ml of pus over the first 24 hours after the repeat CT ; no more significant drainage since last 2 days Abdominal pain has improved ; leukocytosis has improved Patient is having bowel movements vital signs Vital Sign Date Time Temp Pulse Resp B/P (MAP) Pulse Ox O2 Delivery O2 Flow Rate FiO2 05/22/24 17:47 136/59 05/22/24 16:46 97.9 84 18 94 97.9 05/22/24 08:10 Room Air* 0 21 Total Intake and Output 05/21/24 05/21/24 05/22/24 15:00 23:00 07:00 Intake Total 50 ml 1275.52 ml 100 ml Output Total 0 ml Balance 50 ml 1275.52 ml 100 ml medications Current Medications Medications Dose Ordered Sig/Lanette Route Start Time Stop Time Status Last Admin Dose Admin Atenolol 25 mg BID PO 05/10/24 10:00 Hold 05/10/24 21:38 25 MG Levothyroxine Sodium 125 mcg QAM@0600 PO 05/10/24 06:00 05/22/24 06:46 125 MCG Atorvastatin Calcium 40 mg HS PO 05/10/24 22:00 05/21/24 21:52 40 MG Ondansetron HCl 4 mg Q4HP PRN IV 05/09/24 23:00 Hold Acetaminophen 650 mg Q6HP PRN PO 05/09/24 23:00 05/10/24 09:30 650 MG Nitroglycerin 0.4 mg Q5MINP PRN SL 05/09/24 23:00 Enoxaparin Sodium 130 mg Q12HR SC 05/10/24 10:00 UNV Pantoprazole Sodium 40 mg DAILY IV 05/11/24 10:00 05/22/24 10:05 40 MG Baclofen 5 mg Q8HP PRN PO 05/12/24 19:15 Nifedipine 10 mg Q6HR PO 05/13/24 18:00 05/22/24 17:47 10 MG Metoprolol Succinate 25 mg TID PO 05/13/24 14:00 05/22/24 14:16 25 MG Lisinopril 40 mg DAILY PO 05/14/24 10:00 05/22/24 10:04 40 MG Amiodarone HCl 200 mg Q12HR PO 05/15/24 10:00 05/22/24 10:05 200 MG Hydromorphone HCl 0.25 mg Q4HPRN PRN IV 05/15/24 16:15 05/22/24 14:29 0.25 MG Amino Acids 0 ml @ 0 mls/hr PER PHARMACY IV 05/18/24 14:15 Diagnostic Test (Pha) 1 strip Q6HR 05/19/24 00:00 05/22/24 17:47 1 STRIP Insulin Human Regular FOLLOW SLIDING SCALE Q6HR SC 05/19/24 00:00 05/22/24 12:00 2 UNITS Dextrose 50 ml UD IV 05/19/24 00:00 Sodium Chloride 10 ml QSHIFT@10,22 IV 05/18/24 22:00 05/22/24 10:06 10 ML Fat Emulsion Intravenous 150 ml/Sodium Phosphate 80 meq/ Potassium Acetate 100 meq/Magnesium Sulfate 24 meq/ Multivitamins 10 ml/Chromium/ Copper/Manganese/ Zinc 1 ml/Amino Acids/Dextrose 1,337 ml @ 56 mls/hr [id number] IV 05/21/24 22:00 05/22/24 21:59 05/21/24 21:42 56 MLS/HR Piperacillin Sod/ Tazobactam Sod 100 ml @ 25 mls/hr Q6HR IV 05/22/24 00:00 05/22/24 17:46 25 MLS/HR Fat Emulsion Intravenous 150 ml/Sodium Phosphate 80 meq/ Potassium Chloride 40 meq/ Potassium Acetate 60 meq/Magnesium Sulfate 24 meq/ Multivitamins 10 ml/Chromium/ Copper/Manganese/ Zinc 1 ml/Insulin Human Regular 2 units/Amino Acids/ Dextrose 1,337.02 ml @ 55 mls/hr [id number] IV 05/22/24 22:00 05/23/24 22:18 Albumin Human 100 ml @ 100 mls/hr BIDD IV 05/24/24 18:00 05/25/24 18:59 Albumin Human 100 ml @ 100 mls/hr BIDD IV 05/22/24 18:00 05/23/24 18:59 Furosemide 40 mg BIDD IV 05/22/24 18:00 objective General examination- No acute distress , was able to ambulate to bathroom;morbidly obese female HEENT- PEERLA, EOMI intact Heart S1-S2 audible, rate and rhythm regular, no murmur Lungs- CTAB, no wheeze or rhonchi Abdomen- distended, lower abdominal tenderness, bowel sound+ Musculoskeletal-no acute joint swelling or tenderness or redness Lower extremity- no leg edema, but pain in the left lateral thigh Neurological- cranial nerves intact, no acute dysarthria or dysphagia Skin- no acute rash or purpura laboratory and microbiology Laboratory Tests 05/22/24 06:00 Test 05/22/24 06:00 Range/Units Serum Glucose 133 H 74-106 mg/dL Duplex USG No DVT Problems(with codes): (1) Diverticulitis of intestine with perforation and abscess (2) Diverticulitis (3) Urinary tract infection (4) Cholelithiasis (5) Hiatal hernia (6) Atrial fibrillation Prognosis PLAN Continue IV antibiotics Continue IV TPN I had requested Radiology to re-evaluate to see if the abscess had decreased in size or if the PTH factor had reposition Discharge planning ongoing possibly with [facility] and infusion center Dietary Evaluation Review Comments: 1) Advance pt diet when medically feasible to a [id number]/2gNa diet 2) Continue current plan of care Expected Outcomes/Goals: F/U in 3-5 days Plan discussed with: Patient, Other (Nurse) MITCHELL DEMPSEY MD May 22, 2024 18:36
[2024-05-22] MEDS: ALBUMIN 25% 100 ML IV SCH (19:08)
[2024-05-22] MEDS: FUROSEMIDE 40 MG/4 ML VIAL IV SCH (19:09)
--- NOTE | 2024-05-22 20:43 | DVHPN2 ---
Progress Note - Dictate Date Seen: May 22, 2024 Medical Necessity Reason Pt with a Central, PICC or Fol: No Subjective Patient was seen and evaluated in follow up. No acute events overnight. Patient complains of increased edema in legs. Abdominal pain improved. Pigtail catheter drained 100 mL of pus over the first 24 hours after the repeat CT. No more significant drainage. IR consulted. Follow up Bilateral Lower Extremity Arterial Duplex reported no hemodynamically significant stenosis of bilateral lower extremity arteries. vital signs Vital Sign Date Time Temp Pulse Resp B/P (MAP) Pulse Ox O2 Delivery O2 Flow Rate FiO2 05/22/24 19:09 136/59 05/22/24 16:46 97.9 84 18 94 97.9 05/22/24 08:10 Room Air* 0 21 Total Intake and Output 05/21/24 05/21/24 05/22/24 15:00 23:00 07:00 Intake Total 50 ml 1275.52 ml 100 ml Output Total 0 ml Balance 50 ml 1275.52 ml 100 ml medications Current Medications Medications Dose Ordered Sig/Lanette Route Start Time Stop Time Status Last Admin Dose Admin Atenolol 25 mg BID PO 05/10/24 10:00 Hold 05/10/24 21:38 25 MG Levothyroxine Sodium 125 mcg QAM@0600 PO 05/10/24 06:00 05/22/24 06:46 125 MCG Atorvastatin Calcium 40 mg HS PO 05/10/24 22:00 05/21/24 21:52 40 MG Ondansetron HCl 4 mg Q4HP PRN IV 05/09/24 23:00 Hold Acetaminophen 650 mg Q6HP PRN PO 05/09/24 23:00 05/10/24 09:30 650 MG Nitroglycerin 0.4 mg Q5MINP PRN SL 05/09/24 23:00 Enoxaparin Sodium 130 mg Q12HR SC 05/10/24 10:00 UNV Pantoprazole Sodium 40 mg DAILY IV 05/11/24 10:00 05/22/24 10:05 40 MG Baclofen 5 mg Q8HP PRN PO 05/12/24 19:15 Nifedipine 10 mg Q6HR PO 05/13/24 18:00 05/22/24 17:47 10 MG Metoprolol Succinate 25 mg TID PO 05/13/24 14:00 05/22/24 14:16 25 MG Lisinopril 40 mg DAILY PO 05/14/24 10:00 05/22/24 10:04 40 MG Amiodarone HCl 200 mg Q12HR PO 05/15/24 10:00 05/22/24 10:05 200 MG Hydromorphone HCl 0.25 mg Q4HPRN PRN IV 05/15/24 16:15 05/22/24 14:29 0.25 MG Amino Acids 0 ml @ 0 mls/hr PER PHARMACY IV 05/18/24 14:15 Diagnostic Test (Pha) 1 strip Q6HR 05/19/24 00:00 05/22/24 17:47 1 STRIP Insulin Human Regular FOLLOW SLIDING SCALE Q6HR SC 05/19/24 00:00 05/22/24 12:00 2 UNITS Dextrose 50 ml UD IV 05/19/24 00:00 Sodium Chloride 10 ml QSHIFT@10,22 IV 05/18/24 22:00 05/22/24 10:06 10 ML Fat Emulsion Intravenous 150 ml/Sodium Phosphate 80 meq/ Potassium Acetate 100 meq/Magnesium Sulfate 24 meq/ Multivitamins 10 ml/Chromium/ Copper/Manganese/ Zinc 1 ml/Amino Acids/Dextrose 1,337 ml @ 56 mls/hr [id number] IV 05/21/24 22:00 05/22/24 21:59 05/21/24 21:42 56 MLS/HR Piperacillin Sod/ Tazobactam Sod 100 ml @ 25 mls/hr Q6HR IV 05/22/24 00:00 05/22/24 17:46 25 MLS/HR Fat Emulsion Intravenous 150 ml/Sodium Phosphate 80 meq/ Potassium Chloride 40 meq/ Potassium Acetate 60 meq/Magnesium Sulfate 24 meq/ Multivitamins 10 ml/Chromium/ Copper/Manganese/ Zinc 1 ml/Insulin Human Regular 2 units/Amino Acids/ Dextrose 1,337.02 ml @ 55 mls/hr [id number] IV 05/22/24 22:00 05/23/24 22:18 Albumin Human 100 ml @ 100 mls/hr BIDD IV 05/24/24 18:00 05/25/24 18:59 Albumin Human 100 ml @ 100 mls/hr BIDD IV 05/22/24 18:00 05/23/24 18:59 05/22/24 19:08 100 MLS/HR Furosemide 40 mg BIDD IV 05/22/24 18:00 05/22/24 19:09 40 MG objective Physical exam: Vitals and nursing notes reviewed. General: In no acute distress, morbidly obese. HEENT: Normocephalic atraumatic, mucous membranes moist and pink. Neck: Cervical and supraclavicular nodes normal without enlargement. Pulmonary: Clear to auscultation and percussion bilaterally. Cardiac: RRR. No murmur. Abdomen: Soft, nondistended, bowel sounds present all 4 quadrants, no guarding. Musculoskeletal: No deformity. Neuro: Cranial nerves II through XII grossly intact, normal affect and speech, no focal motor deficits. Skin: Warm, dry, normal color and texture, no rash. laboratory and microbiology Laboratory Tests 05/22/24 06:00 Test 05/22/24 06:00 Range/Units Serum Glucose 133 H 74-106 mg/dL Problem List Acute diverticulitis Acute abdominal pain Elevated troponin Hypokalemia UTI Morbid obesity Assessment/Plan Continue all current supportive medical care. Surgery, GI and Cardiology consults. S/p CT-guided drainage of abscess with IR 05/15. F/u IR recommendations. SW is arranging HHS and IV Abx. Awaiting for arrangements with [facility]. Patient will need IV Zosyn to be infusing 24hr continuously per ID via PICC until 06/15/24. Lasix 40 mg IV BID and Albumin 25% IV 100 ML BID for total of 6 doses. Nutritional support with TPN per pharmacy. Protonix 40 mg IV daily. Enoxaparin 130 mg SC q12h. Pain management prn. Additional plan as per the hospital course. Dietary Evaluation Review Comments: 1) Advance pt diet when medically feasible to a DPFQ20b/2gNa diet 2) Continue current plan of care Expected Outcomes/Goals: F/U in 3-5 days Plan discussed with: Patient, Other (RN) SMITHA MCFARLANE DO May 22, 2024 20:43
--- NOTE | 2024-05-22 22:08 | DVHPN2 ---
Consult Progress Note Date Seen: May 22, 2024 Subjective Patient reports: Other (noting new edema in legs , ultrasound showed arterial insufficiency, 100ccx of output from abdominal drain) Objective vital signs Vital Sign Date Time Temp Pulse Resp B/P (MAP) Pulse Ox O2 Delivery O2 Flow Rate FiO2 05/22/24 19:09 136/59 05/22/24 16:46 97.9 84 18 94 97.9 05/22/24 08:10 Room Air* 0 21 Total Intake and Output 05/21/24 05/21/24 05/22/24 15:00 23:00 07:00 Intake Total 50 ml 1275.52 ml 100 ml Output Total 0 ml Balance 50 ml 1275.52 ml 100 ml medications Current Medications Medications Dose Ordered Sig/Lanette Route Start Time Stop Time Status Last Admin Dose Admin Atenolol 25 mg BID PO 05/10/24 10:00 Hold 05/10/24 21:38 25 MG Levothyroxine Sodium 125 mcg QAM@0600 PO 05/10/24 06:00 05/22/24 06:46 125 MCG Atorvastatin Calcium 40 mg HS PO 05/10/24 22:00 05/21/24 21:52 40 MG Ondansetron HCl 4 mg Q4HP PRN IV 05/09/24 23:00 Hold Acetaminophen 650 mg Q6HP PRN PO 05/09/24 23:00 05/10/24 09:30 650 MG Nitroglycerin 0.4 mg Q5MINP PRN SL 05/09/24 23:00 Enoxaparin Sodium 130 mg Q12HR SC 05/10/24 10:00 UNV Pantoprazole Sodium 40 mg DAILY IV 05/11/24 10:00 05/22/24 10:05 40 MG Baclofen 5 mg Q8HP PRN PO 05/12/24 19:15 Nifedipine 10 mg Q6HR PO 05/13/24 18:00 05/22/24 17:47 10 MG Metoprolol Succinate 25 mg TID PO 05/13/24 14:00 05/22/24 14:16 25 MG Lisinopril 40 mg DAILY PO 05/14/24 10:00 05/22/24 10:04 40 MG Amiodarone HCl 200 mg Q12HR PO 05/15/24 10:00 05/22/24 10:05 200 MG Hydromorphone HCl 0.25 mg Q4HPRN PRN IV 05/15/24 16:15 05/22/24 14:29 0.25 MG Amino Acids 0 ml @ 0 mls/hr PER PHARMACY IV 05/18/24 14:15 Diagnostic Test (Pha) 1 strip Q6HR 05/19/24 00:00 05/22/24 17:47 1 STRIP Insulin Human Regular FOLLOW SLIDING SCALE Q6HR SC 05/19/24 00:00 05/22/24 12:00 2 UNITS Dextrose 50 ml UD IV 05/19/24 00:00 Sodium Chloride 10 ml QSHIFT@10,22 IV 05/18/24 22:00 05/22/24 10:06 10 ML Piperacillin Sod/ Tazobactam Sod 100 ml @ 25 mls/hr Q6HR IV 05/22/24 00:00 05/22/24 17:46 25 MLS/HR Fat Emulsion Intravenous 150 ml/Sodium Phosphate 80 meq/ Potassium Chloride 40 meq/ Potassium Acetate 60 meq/Magnesium Sulfate 24 meq/ Multivitamins 10 ml/Chromium/ Copper/Manganese/ Zinc 1 ml/Insulin Human Regular 2 units/Amino Acids/ Dextrose 1,337.02 ml @ 55 mls/hr [id number] IV 05/22/24 22:00 05/23/24 22:18 Albumin Human 100 ml @ 100 mls/hr BIDD IV 05/24/24 18:00 05/25/24 18:59 Albumin Human 100 ml @ 100 mls/hr BIDD IV 05/22/24 18:00 05/23/24 18:59 05/22/24 19:08 100 MLS/HR Furosemide 40 mg BIDD IV 05/22/24 18:00 05/22/24 19:09 40 MG laboratory and microbiology Laboratory Tests 05/22/24 06:00 Test 05/22/24 06:00 Range/Units Serum Glucose 133 H 74-106 mg/dL Problem List/Assessment/Plan Problems(with codes): (1) Atrial fibrillation (2) Hiatal hernia (3) Cholelithiasis (4) Urinary tract infection (5) Elevated LFTs (6) Non-STEMI (non-ST elevated myocardial infarction) (7) Diverticulitis (8) Elevated brain natriuretic peptide (BNP) level (9) Diverticulitis of intestine with perforation and abscess Problem List/Assessment/Plan ID Problem List: - Acute diverticulitis - Diverticular abscess - Acute abdominal pain UTI - Elevated troponin - Hypokalemia - Morbid obesity - Diarrhea - Hypertension - Hypothyroidism Assessment: This is a 73 y.o. female with a past medical history of hypertension, hyperlipidemia, kidney transplant, hypothyroidism, morbid obesity, and end-stage renal disease who presents with lower abdominal pain on May 09. The pain was nonradiating and associated with nausea, diarrhea, and poor appetite. The patient visited [facility] urgent care on May 09 for unprovoked onset of persisting symptoms except with the exception of diarrhea for the past days. The patient reported experiencing urinary retention, constipation, and fever initially for 2 days, then it subsided on its own. CT abdomen revealed diverticulitis with air in the retroperitoneum, findings suggestive of abscess, cholestasis, and small hiatal hernia. Chest X-ray showed no acute findings, and HIDA scan showed nonvisualization of the gallbladder suggestive of cystic duct obstruction. Repeat CT abdomen on May 15 showed moderate fat stranding and induration of the central mesentery, with a 6.5 by 6.2 cm collection of air and minimal fluid suggestive of acute diverticulitis with rupture and associated abscess. The patient underwent IR drainage of the pelvic abscess on July 16. Culture revealed E. coli and Proteus mirabilis, both sensitive to ANCEF and Unison. The patient has been on ceftriaxone and Flagyl. 05/21: appears to require prolonged TPN needs , pharmacy is not providing ceftazidime. 05/22: patient has had over 135 ccs of drainage , likely sufficient for antibiotics to be appropriate monotherapy for treatment Plan: - repeat CT abdomen and follow up on results - Start Zosyn for 1 month and then a follow up image needed at the end of the month - Monitor drainage and consider additional IR drainage or surgical I&D if necessary - Discuss the need for extended IV antibiotic therapy, potentially 30 days with follow up CT abd pelvis afterwards Isolation Precautions: standard Assessment and plan were discussed with the patient as written above. Plan is subject to change pending incorporation of new incoming information/diagnostics. Updates may be added as an addendum at the bottom (OR TOP) of this note. Thank you for the interesting consult. ID will continue to follow. Please contact Infectious Disease for any questions or concerns. Quincy Wooten M.D. [facility] Plan discussed with: Other Dietary Evaluation Review Comments: 1) Advance pt diet when medically feasible to a TTYU43a/2gNa diet 2) Continue current plan of care Expected Outcomes/Goals: F/U in 3-5 days QUINCY WOOTEN MD May 22, 2024 22:08
--- NOTE | 2024-05-22 22:13 | DVHPN2 ---
Progress Note Date Seen: May 22, 2024 Medical Necessity Reason Pt with a Central, PICC or Fol: Yes Objective vital signs Vital Sign Date Time Temp Pulse Resp B/P (MAP) Pulse Ox O2 Delivery O2 Flow Rate FiO2 05/22/24 19:09 136/59 05/22/24 16:46 97.9 84 18 94 97.9 05/22/24 08:10 Room Air* 0 21 Total Intake and Output 05/21/24 05/21/24 05/22/24 15:00 23:00 07:00 Intake Total 50 ml 1275.52 ml 100 ml Output Total 0 ml Balance 50 ml 1275.52 ml 100 ml medications Current Medications Medications Dose Ordered Sig/Lanette Route Start Time Stop Time Status Last Admin Dose Admin Atenolol 25 mg BID PO 05/10/24 10:00 Hold 05/10/24 21:38 25 MG Levothyroxine Sodium 125 mcg QAM@0600 PO 05/10/24 06:00 05/22/24 06:46 125 MCG Atorvastatin Calcium 40 mg HS PO 05/10/24 22:00 05/21/24 21:52 40 MG Ondansetron HCl 4 mg Q4HP PRN IV 05/09/24 23:00 Hold Acetaminophen 650 mg Q6HP PRN PO 05/09/24 23:00 05/10/24 09:30 650 MG Nitroglycerin 0.4 mg Q5MINP PRN SL 05/09/24 23:00 Enoxaparin Sodium 130 mg Q12HR SC 05/10/24 10:00 UNV Pantoprazole Sodium 40 mg DAILY IV 05/11/24 10:00 05/22/24 10:05 40 MG Baclofen 5 mg Q8HP PRN PO 05/12/24 19:15 Nifedipine 10 mg Q6HR PO 05/13/24 18:00 05/22/24 17:47 10 MG Metoprolol Succinate 25 mg TID PO 05/13/24 14:00 05/22/24 14:16 25 MG Lisinopril 40 mg DAILY PO 05/14/24 10:00 05/22/24 10:04 40 MG Amiodarone HCl 200 mg Q12HR PO 05/15/24 10:00 05/22/24 10:05 200 MG Hydromorphone HCl 0.25 mg Q4HPRN PRN IV 05/15/24 16:15 05/22/24 14:29 0.25 MG Amino Acids 0 ml @ 0 mls/hr PER PHARMACY IV 05/18/24 14:15 Diagnostic Test (Pha) 1 strip Q6HR 05/19/24 00:00 05/22/24 17:47 1 STRIP Insulin Human Regular FOLLOW SLIDING SCALE Q6HR SC 05/19/24 00:00 05/22/24 12:00 2 UNITS Dextrose 50 ml UD IV 05/19/24 00:00 Sodium Chloride 10 ml QSHIFT@10,22 IV 05/18/24 22:00 05/22/24 10:06 10 ML Piperacillin Sod/ Tazobactam Sod 100 ml @ 25 mls/hr Q6HR IV 05/22/24 00:00 05/22/24 17:46 25 MLS/HR Fat Emulsion Intravenous 150 ml/Sodium Phosphate 80 meq/ Potassium Chloride 40 meq/ Potassium Acetate 60 meq/Magnesium Sulfate 24 meq/ Multivitamins 10 ml/Chromium/ Copper/Manganese/ Zinc 1 ml/Insulin Human Regular 2 units/Amino Acids/ Dextrose 1,337.02 ml @ 55 mls/hr [id number] IV 05/22/24 22:00 05/23/24 22:18 Albumin Human 100 ml @ 100 mls/hr BIDD IV 05/24/24 18:00 05/25/24 18:59 Albumin Human 100 ml @ 100 mls/hr BIDD IV 05/22/24 18:00 05/23/24 18:59 05/22/24 19:08 100 MLS/HR Furosemide 40 mg BIDD IV 05/22/24 18:00 05/22/24 19:09 40 MG laboratory and microbiology Laboratory Tests 05/22/24 06:00 Test 05/22/24 06:00 Range/Units Serum Glucose 133 H 74-106 mg/dL Microbiology Date/Time Source Procedure Growth Status 05/15/24 13:15 Aspirate Gram Stain - Final Complete 05/15/24 13:15 Body Fluid Culture - Final Escherichia coli Proteus mirabilis Enterococcus faecium Yeast, not Nilsa albicans Complete 05/09/24 21:14 Voided Urine Urine Culture - Final Complete Problem List/Assessment/Plan Problem List/Assessment/Plan AFEBRILE VSS ABD SOFT TENDER NO REBOUND FLATUS + WBC wnl IR DRAINAGE OF INTRAABD ABSCESS DONE AND EVAL ONGOING PURULENT DRAINAGE NOTED IN DRAINAGE BAG CONTINUE CLOSE OBSERVATION IV ABX NURSE AND FAMILY AT BEDSIDE REPEAT LABS AM REPEAT CT SCAN ABD PELVIS WITH PO CONTRAST AM Plan discussed with: Patient My Orders My Orders Orders - CATALINO DEMPSEY MD Procedure Category Date Status Time * Radiologist Consult CONS 05/22/24 Transmitted 03:26 Dietary Evaluation Review Comments: 1) Advance pt diet when medically feasible to a [id number]/2gNa diet 2) Continue current plan of care Expected Outcomes/Goals: F/U in 3-5 days CATALINO DEMPSEY MD May 22, 2024 22:13
[2024-05-22] MEDS: TPN PER PHARMACY IV NR (23:29)
[2024-05-23] VITALS (8 sets, daily range): BP systolic 135–153; BP diastolic 53–85; PULSE 75–86; RESP 17–19; TEMP 97.6–98.6; O2SAT 92–95
[2024-05-23 07:34] LABS: Alanine Aminotransferase 12 U/L (7-40); Albumin 3.5 g/dL (3.2-4.8); Alkaline Phosphatase 82 U/L (46-116); Anion Gap 9 (5-15); Aspartate Aminotransferase 13 U/L (13-40); BUN/Creatinine Ratio 17.7 (10.0-20.0); Bilirubin, Total 0.3 mg/dL (0.2-1.0); Blood Urea Nitrogen 11 mg/dL (9-23); Calcium 8.9 mg/dL (8.7-10.4); Carbon Dioxide 28 mmol/L (20-31); Chloride 102 mmol/L (98-107); Magnesium 2.2 mg/dL (1.6-2.6); Phosphorus 3.2 mg/dL (2.4-5.1); Sodium 139 mmol/L (136-145); Total Protein 6.6 g/dL (5.7-8.2)
[2024-05-23 07:48] LABS: Glucose 128 mg/dL (74-106)
--- NOTE | 2024-05-23 16:38 | DVHPN2 ---
Progress Note Date Seen: May 23, 2024 Medical Necessity Reason Pt with a Central, PICC or Fol: Yes Objective vital signs Vital Sign Date Time Temp Pulse Resp B/P (MAP) Pulse Ox O2 Delivery O2 Flow Rate FiO2 05/23/24 14:22 83 137/68 05/23/24 13:32 97.6 18 95 97.6 05/23/24 08:00 Room Air* 0 21 Total Intake and Output 05/22/24 05/22/24 05/23/24 15:00 23:00 07:00 Intake Total 350 ml 1008 ml 100 ml Balance 350 ml 1008 ml 100 ml medications Current Medications Medications Dose Ordered Sig/Lanette Route Start Time Stop Time Status Last Admin Dose Admin Atenolol 25 mg BID PO 05/10/24 10:00 Hold 05/10/24 21:38 25 MG Levothyroxine Sodium 125 mcg QAM@0600 PO 05/10/24 06:00 05/23/24 06:49 125 MCG Atorvastatin Calcium 40 mg HS PO 05/10/24 22:00 05/22/24 23:20 40 MG Ondansetron HCl 4 mg Q4HP PRN IV 05/09/24 23:00 Hold Acetaminophen 650 mg Q6HP PRN PO 05/09/24 23:00 05/23/24 15:13 650 MG Nitroglycerin 0.4 mg Q5MINP PRN SL 05/09/24 23:00 Enoxaparin Sodium 130 mg Q12HR SC 05/10/24 10:00 UNV Pantoprazole Sodium 40 mg DAILY IV 05/11/24 10:00 05/23/24 09:46 40 MG Baclofen 5 mg Q8HP PRN PO 05/12/24 19:15 Nifedipine 10 mg Q6HR PO 05/13/24 18:00 05/23/24 12:20 10 MG Metoprolol Succinate 25 mg TID PO 05/13/24 14:00 05/23/24 14:22 25 MG Lisinopril 40 mg DAILY PO 05/14/24 10:00 05/23/24 09:47 40 MG Amiodarone HCl 200 mg Q12HR PO 05/15/24 10:00 05/23/24 09:46 200 MG Hydromorphone HCl 0.25 mg Q4HPRN PRN IV 05/15/24 16:15 05/23/24 12:20 0.25 MG Amino Acids 0 ml @ 0 mls/hr PER PHARMACY IV 05/18/24 14:15 Diagnostic Test (Pha) 1 strip Q6HR 05/19/24 00:00 05/23/24 11:54 1 STRIP Insulin Human Regular FOLLOW SLIDING SCALE Q6HR SC 05/19/24 00:00 05/22/24 12:00 2 UNITS Dextrose 50 ml UD IV 05/19/24 00:00 Sodium Chloride 10 ml QSHIFT@10,22 IV 05/18/24 22:00 05/23/24 09:47 10 ML Fat Emulsion Intravenous 150 ml/Sodium Phosphate 80 meq/ Potassium Chloride 40 meq/ Potassium Acetate 60 meq/Magnesium Sulfate 24 meq/ Multivitamins 10 ml/Chromium/ Copper/Manganese/ Zinc 1 ml/Insulin Human Regular 2 units/Amino Acids/ Dextrose 1,337.02 ml @ 55 mls/hr [id number] IV 05/22/24 22:00 05/23/24 22:18 05/22/24 23:29 55 MLS/HR Albumin Human 100 ml @ 100 mls/hr BIDD IV 05/24/24 18:00 05/25/24 18:59 Albumin Human 100 ml @ 100 mls/hr BIDD IV 05/22/24 18:00 05/23/24 18:59 05/23/24 06:47 100 MLS/HR Furosemide 40 mg BIDD IV 05/22/24 18:00 05/23/24 06:51 40 MG Fat Emulsion Intravenous 150 ml/Sodium Phosphate 80 meq/ Potassium Chloride 40 meq/ Potassium Acetate 60 meq/Potassium Phosphate 22 meq/ Magnesium Sulfate 24 meq/ Multivitamins 10 ml/Chromium/ Copper/Manganese/ Zinc 1 ml/Insulin Human Regular 2 units/Amino Acids/ Dextrose 1,342.02 ml @ 56 mls/hr [id number] IV 05/23/24 22:00 05/24/24 21:57 Piperacillin Sod/ Tazobactam Sod 100 ml @ 25 mls/hr Q8H IV 05/23/24 20:00 laboratory and microbiology Laboratory Tests 05/23/24 06:23 05/22/24 06:00 Test 05/23/24 06:23 Range/Units Serum Glucose 128 H 74-106 mg/dL Microbiology Date/Time Source Procedure Growth Status 05/15/24 13:15 Aspirate Gram Stain - Final Complete 05/15/24 13:15 Body Fluid Culture - Final Escherichia coli Proteus mirabilis Enterococcus faecium Yeast, not Nilsa albicans Complete 05/09/24 21:14 Voided Urine Urine Culture - Final Complete Problem List/Assessment/Plan Problem List/Assessment/Plan AFEBRILE VSS ABD SOFT TENDER NO REBOUND FLATUS + WBC wnl IR DRAINAGE OF INTRAABD ABSCESS DONE AND EVAL ONGOING PURULENT DRAINAGE NOTED IN DRAINAGE BAG CONTINUE CLOSE OBSERVATION IV ABX NURSE AND FAMILY AT BEDSIDE REPEAT LABS AM REPEAT CT SCAN ABD PELVIS WITH PO CONTRAST AM PENDING Plan discussed with: Patient Dietary Evaluation Review Comments: 1) Advance pt diet when medically feasible to a [id number]/2gNa diet 2) Continue current plan of care Expected Outcomes/Goals: F/U in 3-5 days CATALINO DEMPSEY MD May 23, 2024 16:38
--- NOTE | 2024-05-23 19:35 | DVH ---
Exam: CT CT ABD PELVIS W CON-ORAL IV History: TO SEE IF THE CATHETER NEEDS TO BE REMOVED OR NOT COMPARISON: CT CT AB PEL WO CON-NO ORAL OR IV on DOS: 05/18/24, CT CT AB PEL WO CON-NO ORAL OR IV on D OS: 05/14/24, CT CT AB PEL WITH IV CON ONLY on DOS: 05/11/24 Technique: Multidetector spiral CT of the abdomen and pelvis was performed from lung bases to pubic symphysis. Intravenous contrast was administered during this examination. Portal venous imaging was obtained. Axial, coronal and sagittal multiplanar reformats were performed by the technologist on a separate workstation. Radiation Dose : Abdomen/Pelvis: CTDIvol 27 mGy, DLP 1408.64 mGy*cm. CONTRAST: Type of contrast: Omni 300 Contrast injected: 100 mL Findings: Lung Bases: No acute or significant lung base finding. Normal heart size. No pleural or pericardial effusion. Liver: The liver is normal in size. No focal lesions. Normal hepatic vascular enhancement. Gallbladder and biliary Tree: Cholelithiasis noted without secondary findings of cholecystitis or lizz iary obstruction. Spleen: Unremarkable Pancreas: The pancreas is normal in appearance without focal lesions or abnormal enhancement. Adrenal Glands: Unremarkable Kidneys: No hydronephrosis. Right renal cysts. Bladder: Unremarkable Bowel: The stomach is grossly normal in appearance. Small bowel and colon are normal in caliber and d istribution. The appendix is not visualized; however, no secondary findings of acute appendicitis id entified. Ascites: Absent Lymphadenopathy: No mesenteric, retroperitoneal or periportal lymphadenopathy. Abdominal wall and Mesentery: There is a persistent abscess in the central pelvis measuring up to 76 x 66 mm. Pigtail catheter is no longer within the fluid collection. Pigtail catheter is at the level of the peritoneal wall. Vasculature: The visualized abdominal aorta is normal in size and caliber. Abdominal and pelvic vess els demonstrate normal enhancement. Pelvic Organs: Unremarkable Musculoskeletal: No aggressive focal bony lesions, acute fractures or dislocation. IMPRESSION: 1. Persistent abscess in the central pelvis measuring up to 76 x 66 mm. Pigtail catheter is not withi n the collection. Pigtail catheter should be removed and a new pigtail catheter should be placed with in the collection. Radiation optimization: All CT scans at this facility use at least one of these dose optimization salina hniques: Automated exposure control mA and/or kV adjustment per patient size (includes targeted exams where dose is matched to clinical indication) or iterative reconstruction. HS:Y
--- NOTE | 2024-05-23 19:54 | DVHPN2 ---
Progress Note - Dictate Date Seen: May 23, 2024 Medical Necessity Reason Pt with a Central, PICC or Fol: Yes Subjective Patient was seen and evaluated in follow up. No acute events overnight. Patient complains of abdominal discomfort. Afebrile. No N/V. WBC is normal. STAT CT Abd/Pelvis ordered/pending. vital signs Vital Sign Date Time Temp Pulse Resp B/P (MAP) Pulse Ox O2 Delivery O2 Flow Rate FiO2 05/23/24 17:52 76 18 137/61 05/23/24 17:00 98.6 94 98.6 05/23/24 08:00 Room Air* 0 21 Total Intake and Output 05/22/24 05/22/24 05/23/24 15:00 23:00 07:00 Intake Total 350 ml 1008 ml 100 ml Balance 350 ml 1008 ml 100 ml medications Current Medications Medications Dose Ordered Sig/Lanette Route Start Time Stop Time Status Last Admin Dose Admin Atenolol 25 mg BID PO 05/10/24 10:00 Hold 05/10/24 21:38 25 MG Levothyroxine Sodium 125 mcg QAM@0600 PO 05/10/24 06:00 05/23/24 06:49 125 MCG Atorvastatin Calcium 40 mg HS PO 05/10/24 22:00 05/22/24 23:20 40 MG Ondansetron HCl 4 mg Q4HP PRN IV 05/09/24 23:00 Hold Acetaminophen 650 mg Q6HP PRN PO 05/09/24 23:00 05/23/24 15:13 650 MG Nitroglycerin 0.4 mg Q5MINP PRN SL 05/09/24 23:00 Enoxaparin Sodium 130 mg Q12HR SC 05/10/24 10:00 UNV Pantoprazole Sodium 40 mg DAILY IV 05/11/24 10:00 05/23/24 09:46 40 MG Baclofen 5 mg Q8HP PRN PO 05/12/24 19:15 Nifedipine 10 mg Q6HR PO 05/13/24 18:00 05/23/24 17:23 10 MG Metoprolol Succinate 25 mg TID PO 05/13/24 14:00 05/23/24 14:22 25 MG Lisinopril 40 mg DAILY PO 05/14/24 10:00 05/23/24 09:47 40 MG Amiodarone HCl 200 mg Q12HR PO 05/15/24 10:00 05/23/24 09:46 200 MG Hydromorphone HCl 0.25 mg Q4HPRN PRN IV 05/15/24 16:15 05/23/24 17:23 0.25 MG Amino Acids 0 ml @ 0 mls/hr PER PHARMACY IV 05/18/24 14:15 Diagnostic Test (Pha) 1 strip Q6HR 05/19/24 00:00 05/23/24 17:28 1 STRIP Insulin Human Regular FOLLOW SLIDING SCALE Q6HR SC 05/19/24 00:00 05/22/24 12:00 2 UNITS Dextrose 50 ml UD IV 05/19/24 00:00 Sodium Chloride 10 ml QSHIFT@10,22 IV 05/18/24 22:00 05/23/24 09:47 10 ML Fat Emulsion Intravenous 150 ml/Sodium Phosphate 80 meq/ Potassium Chloride 40 meq/ Potassium Acetate 60 meq/Magnesium Sulfate 24 meq/ Multivitamins 10 ml/Chromium/ Copper/Manganese/ Zinc 1 ml/Insulin Human Regular 2 units/Amino Acids/ Dextrose 1,337.02 ml @ 55 mls/hr [id number] IV 05/22/24 22:00 05/23/24 22:18 05/22/24 23:29 55 MLS/HR Albumin Human 100 ml @ 100 mls/hr BIDD IV 05/24/24 18:00 05/25/24 18:59 Furosemide 40 mg BIDD IV 05/22/24 18:00 05/23/24 17:24 40 MG Fat Emulsion Intravenous 150 ml/Sodium Phosphate 80 meq/ Potassium Chloride 40 meq/ Potassium Acetate 60 meq/Potassium Phosphate 22 meq/ Magnesium Sulfate 24 meq/ Multivitamins 10 ml/Chromium/ Copper/Manganese/ Zinc 1 ml/Insulin Human Regular 2 units/Amino Acids/ Dextrose 1,342.02 ml @ 56 mls/hr [id number] IV 05/23/24 22:00 05/24/24 21:57 Piperacillin Sod/ Tazobactam Sod 100 ml @ 25 mls/hr Q8H IV 05/23/24 20:00 objective Physical exam: Vitals and nursing notes reviewed. General: In no acute distress, morbidly obese. HEENT: Normocephalic atraumatic, mucous membranes moist and pink. Neck: Cervical and supraclavicular nodes normal without enlargement. Pulmonary: Clear to auscultation and percussion bilaterally. Cardiac: RRR. No murmur. Abdomen: Soft, nondistended, bowel sounds present all 4 quadrants, no guarding. Musculoskeletal: No deformity. Neuro: Cranial nerves II through XII grossly intact, normal affect and speech, no focal motor deficits. Skin: Warm, dry, normal color and texture, no rash. laboratory and microbiology Laboratory Tests 05/23/24 06:23 05/22/24 06:00 Test 05/23/24 06:23 Range/Units Serum Glucose 128 H 74-106 mg/dL Problem List Acute diverticulitis Acute abdominal pain Elevated troponin Hypokalemia UTI Morbid obesity Assessment/Plan Continue all current supportive medical care. Surgery, GI and Cardiology consults. S/p CT-guided drainage of abscess with IR 05/15. IR drainage of intraabdominal abscess eval ongoing. Pending repeat CT Abd/Pelvis. HHS and IV Abx arrangements completed. Patient will need IV Zosyn to be infusing 24hr continuously per ID via PICC until 06/15/24. Lasix 40 mg IV BID and Albumin 25% IV 100 ML BID for total of 6 doses. Nutritional support with TPN per pharmacy. Protonix 40 mg IV daily. Enoxaparin 130 mg SC q12h. Pain management prn. Additional plan as per the hospital course. Dietary Evaluation Review Comments: 1) Advance pt diet when medically feasible to a [id number]/[id number] diet 2) Continue current plan of care Expected Outcomes/Goals: F/U in 3-5 days Plan discussed with: Patient, Other (RN) SMITHA MCFARLANE DO May 23, 2024 19:54
--- NOTE | 2024-05-23 20:13 | DVHPN2 ---
Progress Note - Dictate Date Seen: May 23, 2024 Medical Necessity Reason Pt with a Central, PICC or Fol: Yes Subjective No new complaints Patient stated there was another 50 mL of drainage of pus She underwent a repeat CT today which states that the pigtail catheter was not in the collection and there was a persistent pelvic collection Patient stated the test was painful to do the catheter insertion S/P PICC line placement, patient is getting IV TPN Abdominal pain has improved ; leukocytosis has improved Patient is having bowel movements vital signs Vital Sign Date Time Temp Pulse Resp B/P (MAP) Pulse Ox O2 Delivery O2 Flow Rate FiO2 05/23/24 17:52 76 18 137/61 05/23/24 17:00 98.6 94 98.6 05/23/24 08:00 Room Air* 0 21 Total Intake and Output 05/22/24 05/22/24 05/23/24 15:00 23:00 07:00 Intake Total 350 ml 1008 ml 100 ml Balance 350 ml 1008 ml 100 ml medications Current Medications Medications Dose Ordered Sig/Lanette Route Start Time Stop Time Status Last Admin Dose Admin Atenolol 25 mg BID PO 05/10/24 10:00 Hold 05/10/24 21:38 25 MG Levothyroxine Sodium 125 mcg QAM@0600 PO 05/10/24 06:00 05/23/24 06:49 125 MCG Atorvastatin Calcium 40 mg HS PO 05/10/24 22:00 05/22/24 23:20 40 MG Ondansetron HCl 4 mg Q4HP PRN IV 05/09/24 23:00 Hold Acetaminophen 650 mg Q6HP PRN PO 05/09/24 23:00 05/23/24 15:13 650 MG Nitroglycerin 0.4 mg Q5MINP PRN SL 05/09/24 23:00 Enoxaparin Sodium 130 mg Q12HR SC 05/10/24 10:00 UNV Pantoprazole Sodium 40 mg DAILY IV 05/11/24 10:00 05/23/24 09:46 40 MG Baclofen 5 mg Q8HP PRN PO 05/12/24 19:15 Nifedipine 10 mg Q6HR PO 05/13/24 18:00 05/23/24 17:23 10 MG Metoprolol Succinate 25 mg TID PO 05/13/24 14:00 05/23/24 14:22 25 MG Lisinopril 40 mg DAILY PO 05/14/24 10:00 05/23/24 09:47 40 MG Amiodarone HCl 200 mg Q12HR PO 05/15/24 10:00 05/23/24 09:46 200 MG Hydromorphone HCl 0.25 mg Q4HPRN PRN IV 05/15/24 16:15 05/23/24 17:23 0.25 MG Amino Acids 0 ml @ 0 mls/hr PER PHARMACY IV 05/18/24 14:15 Diagnostic Test (Pha) 1 strip Q6HR 05/19/24 00:00 05/23/24 17:28 1 STRIP Insulin Human Regular FOLLOW SLIDING SCALE Q6HR SC 05/19/24 00:00 05/22/24 12:00 2 UNITS Dextrose 50 ml UD IV 05/19/24 00:00 Sodium Chloride 10 ml QSHIFT@10,22 IV 05/18/24 22:00 05/23/24 09:47 10 ML Fat Emulsion Intravenous 150 ml/Sodium Phosphate 80 meq/ Potassium Chloride 40 meq/ Potassium Acetate 60 meq/Magnesium Sulfate 24 meq/ Multivitamins 10 ml/Chromium/ Copper/Manganese/ Zinc 1 ml/Insulin Human Regular 2 units/Amino Acids/ Dextrose 1,337.02 ml @ 55 mls/hr [id number] IV 05/22/24 22:00 05/23/24 22:18 05/22/24 23:29 55 MLS/HR Albumin Human 100 ml @ 100 mls/hr BIDD IV 05/24/24 18:00 05/25/24 18:59 Furosemide 40 mg BIDD IV 05/22/24 18:00 05/23/24 17:24 40 MG Fat Emulsion Intravenous 150 ml/Sodium Phosphate 80 meq/ Potassium Chloride 40 meq/ Potassium Acetate 60 meq/Potassium Phosphate 22 meq/ Magnesium Sulfate 24 meq/ Multivitamins 10 ml/Chromium/ Copper/Manganese/ Zinc 1 ml/Insulin Human Regular 2 units/Amino Acids/ Dextrose 1,342.02 ml @ 56 mls/hr [id number] IV 05/23/24 22:00 05/24/24 21:57 Piperacillin Sod/ Tazobactam Sod 100 ml @ 25 mls/hr Q8H IV 05/23/24 20:00 objective General examination- No acute distress , was able to ambulate to bathroom;morbidly obese female HEENT- PEERLA, EOMI intact Heart S1-S2 audible, rate and rhythm regular, no murmur Lungs- CTAB, no wheeze or rhonchi Abdomen- distended, lower abdominal tenderness, bowel sound+ Musculoskeletal-no acute joint swelling or tenderness or redness Lower extremity- no leg edema, but pain in the left lateral thigh Neurological- cranial nerves intact, no acute dysarthria or dysphagia Skin- no acute rash or purpura laboratory and microbiology Laboratory Tests 05/23/24 06:23 05/22/24 06:00 Test 05/23/24 06:23 Range/Units Serum Glucose 128 H 74-106 mg/dL Problems(with codes): (1) Diverticulitis of intestine with perforation and abscess (2) Diverticulitis (3) Non-STEMI (non-ST elevated myocardial infarction) Prognosis Assessment plan I have again consulted radiologist to please remove and replace pigtail catheter as it is not in the current position Patient still has a persistent pelvic abscess that needs drainage 7 x 6 cm Continue IV antibiotics NPO on IV TPN Dietary Evaluation Review Comments: 1) Advance pt diet when medically feasible to a [id number]/[id number] diet 2) Continue current plan of care Expected Outcomes/Goals: F/U in 3-5 days Plan discussed with: Patient, Other (Nurse) MITCHELL DEMPSEY MD May 23, 2024 20:13
[2024-05-23] MEDS ORDERED: VANCOMYCIN PER PHARMACY 0 MG IV SCH (20:45)
--- NOTE | 2024-05-23 21:06 | DVHPN2 ---
Progress Note - Dictate Date Seen: May 23, 2024 Medical Necessity Reason Pt with a Central, PICC or Fol: Yes Subjective Patient was seen and evaluated in follow up. Family is at bedside. Patient is complaining of abdominal pain/discomfort. CT abd/pel demonstrated persistent abscess in the central pelvis measuring up to 76 x 66 mm. Pigtail catheter is not within the collection. Pigtail catheter should be removed and a new pigtail catheter should be placed within the collection. Patient pending ID consult for reinsertion of pig tail catheter. vital signs Vital Sign Date Time Temp Pulse Resp B/P (MAP) Pulse Ox O2 Delivery O2 Flow Rate FiO2 05/23/24 17:52 76 18 137/61 05/23/24 17:00 98.6 94 98.6 05/23/24 08:00 Room Air* 0 21 Total Intake and Output 05/22/24 05/22/24 05/23/24 15:00 23:00 07:00 Intake Total 350 ml 1008 ml 100 ml Balance 350 ml 1008 ml 100 ml medications Current Medications Medications Dose Ordered Sig/Lanette Route Start Time Stop Time Status Last Admin Dose Admin Atenolol 25 mg BID PO 05/10/24 10:00 Hold 05/10/24 21:38 25 MG Levothyroxine Sodium 125 mcg QAM@0600 PO 05/10/24 06:00 05/23/24 06:49 125 MCG Atorvastatin Calcium 40 mg HS PO 05/10/24 22:00 05/22/24 23:20 40 MG Ondansetron HCl 4 mg Q4HP PRN IV 05/09/24 23:00 Hold Acetaminophen 650 mg Q6HP PRN PO 05/09/24 23:00 05/23/24 15:13 650 MG Nitroglycerin 0.4 mg Q5MINP PRN SL 05/09/24 23:00 Enoxaparin Sodium 130 mg Q12HR SC 05/10/24 10:00 UNV Pantoprazole Sodium 40 mg DAILY IV 05/11/24 10:00 05/23/24 09:46 40 MG Baclofen 5 mg Q8HP PRN PO 05/12/24 19:15 Nifedipine 10 mg Q6HR PO 05/13/24 18:00 05/23/24 17:23 10 MG Metoprolol Succinate 25 mg TID PO 05/13/24 14:00 05/23/24 14:22 25 MG Lisinopril 40 mg DAILY PO 05/14/24 10:00 05/23/24 09:47 40 MG Amiodarone HCl 200 mg Q12HR PO 05/15/24 10:00 05/23/24 09:46 200 MG Hydromorphone HCl 0.25 mg Q4HPRN PRN IV 05/15/24 16:15 05/23/24 17:23 0.25 MG Amino Acids 0 ml @ 0 mls/hr PER PHARMACY IV 05/18/24 14:15 Diagnostic Test (Pha) 1 strip Q6HR 05/19/24 00:00 05/23/24 17:28 1 STRIP Insulin Human Regular FOLLOW SLIDING SCALE Q6HR SC 05/19/24 00:00 05/22/24 12:00 2 UNITS Dextrose 50 ml UD IV 05/19/24 00:00 Sodium Chloride 10 ml QSHIFT@10,22 IV 05/18/24 22:00 05/23/24 09:47 10 ML Fat Emulsion Intravenous 150 ml/Sodium Phosphate 80 meq/ Potassium Chloride 40 meq/ Potassium Acetate 60 meq/Magnesium Sulfate 24 meq/ Multivitamins 10 ml/Chromium/ Copper/Manganese/ Zinc 1 ml/Insulin Human Regular 2 units/Amino Acids/ Dextrose 1,337.02 ml @ 55 mls/hr [id number] IV 05/22/24 22:00 05/23/24 22:18 05/22/24 23:29 55 MLS/HR Albumin Human 100 ml @ 100 mls/hr BIDD IV 05/24/24 18:00 05/25/24 18:59 Furosemide 40 mg BIDD IV 05/22/24 18:00 05/23/24 17:24 40 MG Fat Emulsion Intravenous 150 ml/Sodium Phosphate 80 meq/ Potassium Chloride 40 meq/ Potassium Acetate 60 meq/Potassium Phosphate 22 meq/ Magnesium Sulfate 24 meq/ Multivitamins 10 ml/Chromium/ Copper/Manganese/ Zinc 1 ml/Insulin Human Regular 2 units/Amino Acids/ Dextrose 1,342.02 ml @ 56 mls/hr [id number] IV 05/23/24 22:00 05/24/24 21:57 Piperacillin Sod/ Tazobactam Sod 100 ml @ 25 mls/hr Q8H IV 05/23/24 20:00 Vancomycin HCl 0 ml @ 0 mls/hr UD IV 05/23/24 20:45 Micafungin Sodium 100 mg/Sodium Chloride 100 ml @ 100 mls/hr DAILY IV 05/24/24 10:00 objective GENERAL: Awake, alert, oriented. Morbidly obese. LUNGS: Clear. CARDIOVASCULAR: Tachycardic. ABDOMEN: Soft, tender in the left lower quadrant, nondistended, bowel sounds present all 4 quadrants, no guarding. laboratory and microbiology Laboratory Tests 05/23/24 06:23 05/22/24 06:00 Test 05/23/24 06:23 Range/Units Serum Glucose 128 H 74-106 mg/dL Problem List Atrial fibrillation with rapid ventricular response. Acute diverticulitis with microperforation. Morbid obesity. Profound leukocytosis. Acute abdominal pain. Elevated troponin. Hypokalemia. UTI. Morbid obesity. Diarrhea. Hypertension. Hypothyroidism. Assessment/Plan Continued all current supportive medical care. Morphine and [place] for pain management. Amiodarone. Lipitor, Metoprolol. IV antibiotics as ordered. GI prophylactics. Lisinopril, Nifedipine. Additional plan as per the hospital course. Dietary Evaluation Review Comments: 1) Advance pt diet when medically feasible to a [id number]/2gNa diet 2) Continue current plan of care Expected Outcomes/Goals: F/U in 3-5 days Plan discussed with: Patient TRESA MCFARLANE MD May 23, 2024 21:06
[2024-05-23] MEDS: PIPERACILLIN-TAZOB 3.375GM 100 ML IV SCH (21:07)
[2024-05-23] MEDS: VANCOMYCIN 1GM/200ML PREMIX 200 ML IV SCH (22:00)
--- NOTE | 2024-05-23 22:36 | DVHPN2 ---
Consult Progress Note Date Seen: May 23, 2024 Subjective Patient reports: Other (still having intermitted abdominal pain , tolerating TPN feeds , having bowel movements and output from drainage catheter in abdomen) Objective vital signs Vital Sign Date Time Temp Pulse Resp B/P (MAP) Pulse Ox O2 Delivery O2 Flow Rate FiO2 05/23/24 21:09 86 19 148/63 05/23/24 21:00 98.1 94 98.1 05/23/24 08:00 Room Air* 0 21 Total Intake and Output 05/22/24 05/22/24 05/23/24 15:00 23:00 07:00 Intake Total 350 ml 1008 ml 100 ml Balance 350 ml 1008 ml 100 ml medications Current Medications Medications Dose Ordered Sig/Lanette Route Start Time Stop Time Status Last Admin Dose Admin Atenolol 25 mg BID PO 05/10/24 10:00 Hold 05/10/24 21:38 25 MG Levothyroxine Sodium 125 mcg QAM@0600 PO 05/10/24 06:00 05/23/24 06:49 125 MCG Atorvastatin Calcium 40 mg HS PO 05/10/24 22:00 05/23/24 21:07 40 MG Ondansetron HCl 4 mg Q4HP PRN IV 05/09/24 23:00 Hold Acetaminophen 650 mg Q6HP PRN PO 05/09/24 23:00 05/23/24 15:13 650 MG Nitroglycerin 0.4 mg Q5MINP PRN SL 05/09/24 23:00 Enoxaparin Sodium 130 mg Q12HR SC 05/10/24 10:00 UNV Pantoprazole Sodium 40 mg DAILY IV 05/11/24 10:00 05/23/24 09:46 40 MG Baclofen 5 mg Q8HP PRN PO 05/12/24 19:15 Nifedipine 10 mg Q6HR PO 05/13/24 18:00 05/23/24 17:23 10 MG Metoprolol Succinate 25 mg TID PO 05/13/24 14:00 05/23/24 21:07 25 MG Lisinopril 40 mg DAILY PO 05/14/24 10:00 05/23/24 09:47 40 MG Amiodarone HCl 200 mg Q12HR PO 05/15/24 10:00 05/23/24 21:07 200 MG Hydromorphone HCl 0.25 mg Q4HPRN PRN IV 05/15/24 16:15 05/23/24 21:09 0.25 MG Amino Acids 0 ml @ 0 mls/hr PER PHARMACY IV 05/18/24 14:15 Diagnostic Test (Pha) 1 strip Q6HR 05/19/24 00:00 05/23/24 17:28 1 STRIP Insulin Human Regular FOLLOW SLIDING SCALE Q6HR SC 05/19/24 00:00 05/22/24 12:00 2 UNITS Dextrose 50 ml UD IV 05/19/24 00:00 Sodium Chloride 10 ml QSHIFT@10,22 IV 05/18/24 22:00 05/23/24 09:47 10 ML Albumin Human 100 ml @ 100 mls/hr BIDD IV 05/24/24 18:00 05/25/24 18:59 Furosemide 40 mg BIDD IV 05/22/24 18:00 05/23/24 17:24 40 MG Fat Emulsion Intravenous 150 ml/Sodium Phosphate 80 meq/ Potassium Chloride 40 meq/ Potassium Acetate 60 meq/Potassium Phosphate 22 meq/ Magnesium Sulfate 24 meq/ Multivitamins 10 ml/Chromium/ Copper/Manganese/ Zinc 1 ml/Insulin Human Regular 2 units/Amino Acids/ Dextrose 1,342.02 ml @ 56 mls/hr [id number] IV 05/23/24 22:00 05/24/24 21:57 Piperacillin Sod/ Tazobactam Sod 100 ml @ 25 mls/hr Q8H IV 05/23/24 20:00 05/23/24 21:07 25 MLS/HR Vancomycin HCl 0 ml @ 0 mls/hr UD IV 05/23/24 20:45 Micafungin Sodium 100 mg/Sodium Chloride 100 ml @ 100 mls/hr DAILY IV 05/24/24 10:00 Vancomycin HCl 200 ml @ 200 mls/hr Q8H IV 05/23/24 22:00 Physical Exam: General: NAD Neck: Supple. No masses. HEENT: PERRL. Normal lids and conjunctiva. Moist mucous membranes. Oropharynx without lesions, exudates, or excessive erythema. Normal appearance of the external aspects of the nose and ears. Heart: Regular rhythm, normal rate. No murmur. No lower extremity edema. Lungs: Normal respiratory effort. Clear to auscultation bilaterally. No wheezes. No crackles. Abdomen: Soft. slightly tender. Non-distended. No masses or abdominal hernia. Msk: No digital cyanosis. Normal strength and tone in all 4 limbs. Skin: Warm and dry, no rashes. Neuro: Alert. No facial droop or slurred speech. Extra-ocular movements intact. Sensation intact to soft touch in all 4 limbs. Psych: Appropriate mood. Full affect. Oriented to person, place, time, and situation. laboratory and microbiology Laboratory Tests 05/23/24 06:23 05/22/24 06:00 Test 05/23/24 06:23 Range/Units Serum Glucose 128 H 74-106 mg/dL Problem List/Assessment/Plan Problems(with codes): (1) Diverticulitis of intestine with perforation and abscess (2) Elevated brain natriuretic peptide (BNP) level (3) Non-STEMI (non-ST elevated myocardial infarction) (4) Elevated LFTs (5) Diverticulitis (6) Urinary tract infection (7) Cholelithiasis (8) Hiatal hernia (9) Atrial fibrillation Problem List/Assessment/Plan ID Problem List: - Acute diverticulitis - Diverticular abscess - Acute abdominal pain UTI - Elevated troponin - Hypokalemia - Morbid obesity - Diarrhea - Hypertension - Hypothyroidism Assessment: This is a 73 y.o. female with a past medical history of hypertension, hyperlipidemia, kidney transplant, hypothyroidism, morbid obesity, and end-stage renal disease who presents with lower abdominal pain on May 09. The pain was nonradiating and associated with nausea, diarrhea, and poor appetite. The patient visited [facility] urgent care on May 09 for unprovoked onset of persisting symptoms except with the exception of diarrhea for the past days. The patient reported experiencing urinary retention, constipation, and fever initially for 2 days, then it subsided on its own. CT abdomen revealed diverticulitis with air in the retroperitoneum, findings suggestive of abscess, cholestasis, and small hiatal hernia. Chest X-ray showed no acute findings, and HIDA scan showed nonvisualization of the gallbladder suggestive of cystic duct obstruction. Repeat CT abdomen on May 15 showed moderate fat stranding and induration of the central mesentery, with a 6.5 by 6.2 cm collection of air and minimal fluid suggestive of acute diverticulitis with rupture and associated abscess. The patient underwent IR drainage of the pelvic abscess on July 16. Culture revealed E. coli and Proteus mirabilis, both sensitive to ANCEF and Unison. The patient has been on ceftriaxone and Flagyl. 05/21: appears to require prolonged TPN needs , pharmacy is not providing ceftazidime. 05/22: patient has had over 135 ccs of drainage , likely sufficient for antibiotics to be appropriate monotherapy for treatment 05/23: white count has normalized, microbiology shows E Coli, proteus , enterococcus and yeast. the E Coli and proteus are sensitive to zosyn. Ct scan shos a persistent abscess in the central pelvis 7.76 by 6.6 . pictile cathedeter should be removed and a new one placed . does not appear that patient would have any drug contraindications to vancomycin or fluconazol and start by IV because patient is NPO Plan: - start vancomycin or fluconazol and start by IV because patient is NPO - when patient is trransitioned to oral intake , patient can go home on an oral regimen otherwise patient will be required to take 2-3 IV medications to adequatly treat abscess - continue Zosyn for 1 month and then a follow up image needed at the end of the month - Monitor drainage and consider additional IR drainage or surgical I&D if necessary - Discuss the need for extended IV antibiotic therapy, potentially 30 days with follow up CT abd pelvis afterwards Isolation Precautions: standard Assessment and plan were discussed with the patient as written above. Plan is subject to change pending incorporation of new incoming information/diagnostics. Updates may be added as an addendum at the bottom (OR TOP) of this note. Thank you for the interesting consult. ID will continue to follow. Please contact Infectious Disease for any questions or concerns. Mellissa Jack Medical Plan discussed with: Other Dietary Evaluation Review Comments: 1) Advance pt diet when medically feasible to a [id number]/[id number] diet 2) Continue current plan of care Expected Outcomes/Goals: F/U in 3-5 days QUINCY HURST MD May 23, 2024 22:36
[2024-05-24] VITALS (7 sets, daily range): BP systolic 100–164; BP diastolic 54–78; PULSE 82–99; RESP 16–20; TEMP 97.7–98.2; O2SAT 91–95
[2024-05-24] MEDS: TPN PER PHARMACY IV NR (02:41)
[2024-05-24 06:42] LABS: Alanine Aminotransferase 10 U/L (7-40); Albumin 3.9 g/dL (3.2-4.8); Alkaline Phosphatase 77 U/L (46-116); Anion Gap 10 (5-15); Aspartate Aminotransferase 14 U/L (13-40); BUN/Creatinine Ratio 14.7 (10.0-20.0); Bilirubin, Total 0.5 mg/dL (0.2-1.0); Blood Urea Nitrogen 10 mg/dL (9-23); Calcium 9.6 mg/dL (8.7-10.4); Carbon Dioxide 30 mmol/L (20-31); Chloride 98 mmol/L (98-107); Glucose 110 mg/dL (74-106); Magnesium 2.1 mg/dL (1.6-2.6); Phosphorus 3.4 mg/dL (2.4-5.1); Potassium 3.6 mmol/L (3.5-5.1); Sodium 138 mmol/L (136-145); Total Protein 6.7 g/dL (5.7-8.2)
[2024-05-24] MEDS: LIDOCAINE 2%HCL (LOCAL ANESTH.) INJ 10ml MDV ONE (08:56)
[2024-05-24] MEDS: fentaNYL CITRATE 100 MCG/2 ML VL IV ONE (09:00)
[2024-05-24] MEDS: MIDAZOLAM HCL 2MG/2ML 2ml VIAL (1mg/ml) IV ONE (09:00)
--- NOTE | 2024-05-24 10:41 | DVH ---
PROCEDURE: CT GUIDED DRAIN PLACEMENT HISTORY: CHANGE DRAINAGE CATH EBL: 5 mL COMPLICATIONS: none immediate Radiation dose information: CTDI vol 21.96 mGy; DLP mGycm 200.[address] are the volume Computed Tomography (CT) Dose Index (CTDIvol) and the Dose Length Product (DLP), and are measured in units of mGy and mGy-cm, respectively. These indicators are not patient dose, but values generated from the CT scanner acquisition factors. The report includes radiation exposure data for exposures received during this examination. If multiple reports are prod uced from this examination, the exposure data is duplicated in each report. The exposure data report ed is indicative, but not determinative, of the radiation dose received by this patient. DOCUMENTATION: Informed consent was obtained and a procedural time out was performed. SEDATION: Moderate sedation was utilized during the procedure. The patient received benzodiazepines a nd opioids, the dosing of which was documented in the patient s permanent medical record. Pre-sedatio n history and evaluation revealed no contraindications to sedation. The patient s level of consciousn ess and physiologic status was monitored continuously by the physician and nursing staff throughout t he procedure. Total intra-service moderate sedation time was 30 minutes. TECHNIQUE: The skin over the anterior abdomen was sterilely prepped, draped, and infiltrated with 1% lidocaine. Computed tomography was used to locate the fluid collection. The collection was accessed w ith a 19-gauge Yueh needle and a wire coiled in the collection. A 8 [place] APD was then placed and th e coil formed. Tube placement was confirmed with follow up CT imaging. The catheter was secured and c onnected to bulb suction. Sterile dressings were applied. FINDINGS: CT demonstrates a small fluid collection. The final images show the tube in the collection. Purulent material was aspirated with a sample sent for laboratory evaluation. No complications were encountered. IMPRESSION: CT GUIDED PLACEMENT OF AN 8.5 FR DRAINAGE CATHETER WITHIN THE abdominal COLLECTION. RECOMMENDATION/PLAN: Maintain drainage tube to bulb suction gravity drainage.
[2024-05-24] MEDS: MICAFUNGIN SODIUM 100 MG in SODIUM CHL 0.9% 100 ML IV SCH (11:32)
[2024-05-24] MEDS: hydrALAZINE HCL 20 MG/ML VL IV PRN (13:46)
[2024-05-24 14:11] LABS: INR 1.1 (0.9-1.15); Partial Thromboplastin Time 27.8 SEC (24.5-34.5); Prothrombin Time 11.6 sec (9.3-11.8)
--- NOTE | 2024-05-24 14:29 | DVHPN2 ---
Progress Note Date Seen: May 24, 2024 Medical Necessity Reason Pt with a Central, PICC or Fol: Yes Objective vital signs Vital Sign Date Time Temp Pulse Resp B/P (MAP) Pulse Ox O2 Delivery O2 Flow Rate FiO2 05/24/24 13:46 164/67 05/24/24 13:00 97.7 85 16 93 97.7 05/23/24 20:00 Room Air* 0 21 Total Intake and Output 05/23/24 05/23/24 05/24/24 15:00 23:00 07:00 Intake Total 200 ml 865 ml 2142.02 ml Balance 200 ml 865 ml 2142.02 ml medications Current Medications Medications Dose Ordered Sig/Lanette Route Start Time Stop Time Status Last Admin Dose Admin Atenolol 25 mg BID PO 05/10/24 10:00 Hold 05/10/24 21:38 25 MG Levothyroxine Sodium 125 mcg QAM@0600 PO 05/10/24 06:00 05/24/24 06:45 125 MCG Atorvastatin Calcium 40 mg HS PO 05/10/24 22:00 05/23/24 21:07 40 MG Ondansetron HCl 4 mg Q4HP PRN IV 05/09/24 23:00 Hold Acetaminophen 650 mg Q6HP PRN PO 05/09/24 23:00 05/23/24 15:13 650 MG Nitroglycerin 0.4 mg Q5MINP PRN SL 05/09/24 23:00 Enoxaparin Sodium 130 mg Q12HR SC 05/10/24 10:00 UNV Pantoprazole Sodium 40 mg DAILY IV 05/11/24 10:00 05/24/24 11:32 40 MG Baclofen 5 mg Q8HP PRN PO 05/12/24 19:15 Nifedipine 10 mg Q6HR PO 05/13/24 18:00 05/24/24 07:12 10 MG Metoprolol Succinate 25 mg TID PO 05/13/24 14:00 05/24/24 06:46 25 MG Lisinopril 40 mg DAILY PO 05/14/24 10:00 05/23/24 09:47 40 MG Amiodarone HCl 200 mg Q12HR PO 05/15/24 10:00 05/23/24 21:07 200 MG Hydromorphone HCl 0.25 mg Q4HPRN PRN IV 05/15/24 16:15 05/24/24 06:47 0.25 MG Amino Acids 0 ml @ 0 mls/hr PER PHARMACY IV 05/18/24 14:15 Diagnostic Test (Pha) 1 strip Q6HR 05/19/24 00:00 05/24/24 12:00 1 STRIP Insulin Human Regular FOLLOW SLIDING SCALE Q6HR SC 05/19/24 00:00 05/22/24 12:00 2 UNITS Dextrose 50 ml UD IV 05/19/24 00:00 Sodium Chloride 10 ml QSHIFT@10,22 IV 05/18/24 22:00 05/24/24 10:00 10 ML Albumin Human 100 ml @ 100 mls/hr BIDD IV 05/24/24 18:00 05/25/24 18:59 Furosemide 40 mg BIDD IV 05/22/24 18:00 05/24/24 06:44 40 MG Fat Emulsion Intravenous 150 ml/Sodium Phosphate 80 meq/ Potassium Chloride 40 meq/ Potassium Acetate 60 meq/Potassium Phosphate 22 meq/ Magnesium Sulfate 24 meq/ Multivitamins 10 ml/Chromium/ Copper/Manganese/ Zinc 1 ml/Insulin Human Regular 2 units/Amino Acids/ Dextrose 1,342.02 ml @ 56 mls/hr [id number] IV 05/23/24 22:00 05/24/24 21:57 05/24/24 02:41 56 MLS/HR Piperacillin Sod/ Tazobactam Sod 100 ml @ 25 mls/hr Q8H IV 05/23/24 20:00 05/23/24 21:07 25 MLS/HR Vancomycin HCl 0 ml @ 0 mls/hr UD IV 05/23/24 20:45 Micafungin Sodium 100 mg/Sodium Chloride 100 ml @ 100 mls/hr DAILY IV 05/24/24 10:00 05/24/24 11:32 100 MLS/HR Vancomycin HCl 200 ml @ 200 mls/hr Q8H IV 05/23/24 22:00 05/24/24 13:46 200 MLS/HR Hydralazine HCl 5 mg Q4HP PRN IV 05/24/24 12:00 05/24/24 13:46 5 MG Fat Emulsion Intravenous 150 ml/Sodium Chloride 40 meq/ Potassium Chloride 100 meq/ Magnesium Sulfate 24 meq/ Multivitamins 10 ml/Chromium/ Copper/Manganese/ Zinc 1 ml/Sodium Phosphate 40 meq/ Amino Acids/ Dextrose 1,337 ml @ 56 mls/hr [id number] IV 05/24/24 22:00 05/25/24 21:59 laboratory and microbiology Laboratory Tests 05/24/24 05:07 05/22/24 06:00 Test 05/24/24 05:07 Range/Units Serum Glucose 110 H 74-106 mg/dL Microbiology Date/Time Source Procedure Growth Status 05/15/24 13:15 Aspirate Gram Stain - Final Complete 05/15/24 13:15 Body Fluid Culture - Final Escherichia coli Proteus mirabilis Enterococcus faecium Yeast, not Nilsa albicans Complete 05/09/24 21:14 Voided Urine Urine Culture - Final Complete Problem List/Assessment/Plan Problem List/Assessment/Plan AFEBRILE VSS ABD SOFT TENDER NO REBOUND FLATUS + WBC wnl REPEAT REPLACEMENT OF IR DRAINAGE OF INTRAABD ABSCESS DONE AND EVAL ONGOING PURULENT DRAINAGE NOTED IN DRAINAGE BAG CONTINUE CLOSE OBSERVATION IV ABX NURSE AND FAMILY AT BEDSIDE REPEAT LABS AM Plan discussed with: Other My Orders My Orders Orders - CATALINO DEMPSEY MD Procedure Category Date Status Time Ct Abd Pelvis W CT 05/23/24 Resulted Con-Oral & Iv 16:35 Dietary Evaluation Review Comments: 1) Advance pt diet when medically feasible to a [id number]/[id number] diet 2) Continue current plan of care Expected Outcomes/Goals: F/U in 3-5 days CATALINO DEMPSEY MD May 24, 2024 14:29
[2024-05-24] MEDS: LIDOCAINE 1% (LOCAL ANESTH.) PF 5ml SDV ID ONE (15:45)
[2024-05-24] MEDS: ALBUMIN 25% 100 ML IV SCH (18:06)
--- NOTE | 2024-05-24 21:09 | DVHPN2 ---
Progress Note - Dictate Date Seen: May 24, 2024 Medical Necessity Reason Pt with a Central, PICC or Fol: Yes Subjective Patient was seen and evaluated in follow up. Patient is complaining of 8/10 lower abdominal pain. GLUC 120. Patient underwent CT guided placement of drainage cath with the abdominal collection this afternoon. Patient tolerated the procedure well. vital signs Vital Sign Date Time Temp Pulse Resp B/P (MAP) Pulse Ox O2 Delivery O2 Flow Rate FiO2 05/24/24 09:00 124/78 05/24/24 09:00 98.2 82 17 95 98.2 05/23/24 20:00 Room Air* 0 21 Total Intake and Output 05/23/24 05/23/24 05/24/24 15:00 23:00 07:00 Intake Total 200 ml 865 ml 2142.02 ml Balance 200 ml 865 ml 2142.02 ml medications Current Medications Medications Dose Ordered Sig/Lanette Route Start Time Stop Time Status Last Admin Dose Admin Atenolol 25 mg BID PO 05/10/24 10:00 Hold 05/10/24 21:38 25 MG Levothyroxine Sodium 125 mcg QAM@0600 PO 05/10/24 06:00 05/24/24 06:45 125 MCG Atorvastatin Calcium 40 mg HS PO 05/10/24 22:00 05/23/24 21:07 40 MG Ondansetron HCl 4 mg Q4HP PRN IV 05/09/24 23:00 Hold Acetaminophen 650 mg Q6HP PRN PO 05/09/24 23:00 05/23/24 15:13 650 MG Nitroglycerin 0.4 mg Q5MINP PRN SL 05/09/24 23:00 Enoxaparin Sodium 130 mg Q12HR SC 05/10/24 10:00 UNV Pantoprazole Sodium 40 mg DAILY IV 05/11/24 10:00 05/24/24 11:32 40 MG Baclofen 5 mg Q8HP PRN PO 05/12/24 19:15 Nifedipine 10 mg Q6HR PO 05/13/24 18:00 05/24/24 07:12 10 MG Metoprolol Succinate 25 mg TID PO 05/13/24 14:00 05/24/24 06:46 25 MG Lisinopril 40 mg DAILY PO 05/14/24 10:00 05/23/24 09:47 40 MG Amiodarone HCl 200 mg Q12HR PO 05/15/24 10:00 05/23/24 21:07 200 MG Hydromorphone HCl 0.25 mg Q4HPRN PRN IV 05/15/24 16:15 05/24/24 06:47 0.25 MG Amino Acids 0 ml @ 0 mls/hr PER PHARMACY IV 05/18/24 14:15 Diagnostic Test (Pha) 1 strip Q6HR 05/19/24 00:00 05/24/24 06:46 1 STRIP Insulin Human Regular FOLLOW SLIDING SCALE Q6HR SC 05/19/24 00:00 05/22/24 12:00 2 UNITS Dextrose 50 ml UD IV 05/19/24 00:00 Sodium Chloride 10 ml QSHIFT@10,22 IV 05/18/24 22:00 05/24/24 10:00 10 ML Albumin Human 100 ml @ 100 mls/hr BIDD IV 05/24/24 18:00 05/25/24 18:59 Furosemide 40 mg BIDD IV 05/22/24 18:00 05/24/24 06:44 40 MG Fat Emulsion Intravenous 150 ml/Sodium Phosphate 80 meq/ Potassium Chloride 40 meq/ Potassium Acetate 60 meq/Potassium Phosphate 22 meq/ Magnesium Sulfate 24 meq/ Multivitamins 10 ml/Chromium/ Copper/Manganese/ Zinc 1 ml/Insulin Human Regular 2 units/Amino Acids/ Dextrose 1,342.02 ml @ 56 mls/hr [id number] IV 05/23/24 22:00 05/24/24 21:57 05/24/24 02:41 56 MLS/HR Piperacillin Sod/ Tazobactam Sod 100 ml @ 25 mls/hr Q8H IV 05/23/24 20:00 05/23/24 21:07 25 MLS/HR Vancomycin HCl 0 ml @ 0 mls/hr UD IV 05/23/24 20:45 Micafungin Sodium 100 mg/Sodium Chloride 100 ml @ 100 mls/hr DAILY IV 05/24/24 10:00 05/24/24 11:32 100 MLS/HR Vancomycin HCl 200 ml @ 200 mls/hr Q8H IV 05/23/24 22:00 05/24/24 06:44 200 MLS/HR Hydralazine HCl 5 mg Q4HP PRN IV 05/24/24 12:00 objective GENERAL: Awake, alert, oriented. Morbidly obese. LUNGS: Clear. CARDIOVASCULAR: Tachycardic. ABDOMEN: Soft, tender in the left lower quadrant, nondistended, bowel sounds present all 4 quadrants, no guarding. laboratory and microbiology Laboratory Tests 05/24/24 05:07 05/22/24 06:00 Test 05/24/24 05:07 Range/Units Serum Glucose 110 H 74-106 mg/dL Problem List Atrial fibrillation with rapid ventricular response. Acute diverticulitis with microperforation. Morbid obesity. Profound leukocytosis. Acute abdominal pain. Elevated troponin. Hypokalemia. UTI. Morbid obesity. Diarrhea. Hypertension. Hypothyroidism. Assessment/Plan Continued all current supportive medical care. Morphine and [place] for pain management. Amiodarone. Lipitor, Metoprolol. IV antibiotics as ordered. GI prophylactics. Lisinopril, Nifedipine. Additional plan as per the hospital course. Dietary Evaluation Review Comments: 1) Advance pt diet when medically feasible to a ILVP76m/2gNa diet 2) Continue current plan of care Expected Outcomes/Goals: F/U in 3-5 days Plan discussed with: Patient TRESA MCFARLANE MD May 24, 2024 13:19
--- NOTE | 2024-05-24 21:20 | DVHPN2 ---
Progress Note - Dictate Date Seen: May 24, 2024 Medical Necessity Reason Pt with a Central, PICC or Fol: Yes Subjective Patient was seen and evaluated in follow up. No acute events overnight. Patient complains of lower abdominal pain, 02/17. No N/V. BP is trending higher. Patient needs to get pigtail replaced today. ID consulted for clearance. vital signs Vital Sign Date Time Temp Pulse Resp B/P (MAP) Pulse Ox O2 Delivery O2 Flow Rate FiO2 05/24/24 18:07 178/56 05/24/24 17:02 90 18 05/24/24 17:00 97.8 95 97.8 05/24/24 08:00 Room Air* 0 21 Total Intake and Output 05/23/24 05/23/24 05/24/24 15:00 23:00 07:00 Intake Total 200 ml 865 ml 2142.02 ml Balance 200 ml 865 ml 2142.02 ml medications Current Medications Medications Dose Ordered Sig/Lanette Route Start Time Stop Time Status Last Admin Dose Admin Atenolol 25 mg BID PO 05/10/24 10:00 Hold 05/10/24 21:38 25 MG Levothyroxine Sodium 125 mcg QAM@0600 PO 05/10/24 06:00 05/24/24 06:45 125 MCG Atorvastatin Calcium 40 mg HS PO 05/10/24 22:00 05/23/24 21:07 40 MG Ondansetron HCl 4 mg Q4HP PRN IV 05/09/24 23:00 Hold Acetaminophen 650 mg Q6HP PRN PO 05/09/24 23:00 05/23/24 15:13 650 MG Nitroglycerin 0.4 mg Q5MINP PRN SL 05/09/24 23:00 Enoxaparin Sodium 130 mg Q12HR SC 05/10/24 10:00 UNV Pantoprazole Sodium 40 mg DAILY IV 05/11/24 10:00 05/24/24 11:32 40 MG Baclofen 5 mg Q8HP PRN PO 05/12/24 19:15 Nifedipine 10 mg Q6HR PO 05/13/24 18:00 05/24/24 07:12 10 MG Metoprolol Succinate 25 mg TID PO 05/13/24 14:00 05/24/24 06:46 25 MG Lisinopril 40 mg DAILY PO 05/14/24 10:00 05/23/24 09:47 40 MG Amiodarone HCl 200 mg Q12HR PO 05/15/24 10:00 05/23/24 21:07 200 MG Amino Acids 0 ml @ 0 mls/hr PER PHARMACY IV 05/18/24 14:15 Diagnostic Test (Pha) 1 strip Q6HR 05/19/24 00:00 05/24/24 18:01 1 STRIP Insulin Human Regular FOLLOW SLIDING SCALE Q6HR SC 05/19/24 00:00 05/22/24 12:00 2 UNITS Dextrose 50 ml UD IV 05/19/24 00:00 Sodium Chloride 10 ml QSHIFT@10,22 IV 05/18/24 22:00 05/24/24 10:00 10 ML Albumin Human 100 ml @ 100 mls/hr BIDD IV 05/24/24 18:00 05/25/24 18:59 05/24/24 18:06 100 MLS/HR Furosemide 40 mg BIDD IV 05/22/24 18:00 05/24/24 18:07 40 MG Fat Emulsion Intravenous 150 ml/Sodium Phosphate 80 meq/ Potassium Chloride 40 meq/ Potassium Acetate 60 meq/Potassium Phosphate 22 meq/ Magnesium Sulfate 24 meq/ Multivitamins 10 ml/Chromium/ Copper/Manganese/ Zinc 1 ml/Insulin Human Regular 2 units/Amino Acids/ Dextrose 1,342.02 ml @ 56 mls/hr [id number] IV 05/23/24 22:00 05/24/24 21:57 05/24/24 02:41 56 MLS/HR Piperacillin Sod/ Tazobactam Sod 100 ml @ 25 mls/hr Q8H IV 05/23/24 20:00 05/24/24 16:32 25 MLS/HR Vancomycin HCl 0 ml @ 0 mls/hr UD IV 05/23/24 20:45 Micafungin Sodium 100 mg/Sodium Chloride 100 ml @ 100 mls/hr DAILY IV 05/24/24 10:00 05/24/24 11:32 100 MLS/HR Vancomycin HCl 200 ml @ 200 mls/hr Q8H IV 05/23/24 22:00 05/24/24 13:46 200 MLS/HR Hydralazine HCl 5 mg Q4HP PRN IV 05/24/24 12:00 05/24/24 13:46 5 MG Fat Emulsion Intravenous 150 ml/Sodium Chloride 40 meq/ Potassium Chloride 100 meq/ Magnesium Sulfate 24 meq/ Multivitamins 10 ml/Chromium/ Copper/Manganese/ Zinc 1 ml/Sodium Phosphate 40 meq/ Amino Acids/ Dextrose 1,337 ml @ 56 mls/hr [id number] IV 05/24/24 22:00 05/25/24 21:59 objective Physical exam: Vitals and nursing notes reviewed. General: In no acute distress, morbidly obese. HEENT: Normocephalic atraumatic, mucous membranes moist and pink. Neck: Cervical and supraclavicular nodes normal without enlargement. Pulmonary: Clear to auscultation and percussion bilaterally. Cardiac: RRR. No murmur. Abdomen: Soft, tender, nondistended, bowel sounds present all 4 quadrants, no guarding. Musculoskeletal: No deformity. Neuro: Cranial nerves II through XII grossly intact, normal affect and speech, no focal motor deficits. Skin: Warm, dry, normal color and texture, no rash. laboratory and microbiology Laboratory Tests 05/24/24 05:07 05/22/24 06:00 Test 05/24/24 05:07 Range/Units Serum Glucose 110 H 74-106 mg/dL Problem List Acute diverticulitis Acute abdominal pain Elevated troponin Hypokalemia UTI Morbid obesity Assessment/Plan Continue all current supportive medical care. Surgery, GI and Cardiology consults. S/p CT-guided drainage of abscess with IR 05/15. Replacement of pigtail today. Repeat labs in AM. IV Vancomycin, Zosyn and Micafungin. Nutritional support with TPN per pharmacy. Protonix 40 mg IV daily. Enoxaparin 130 mg SC q12h. Pain management prn. Optimization of BP with IV Hydralazine. Additional plan as per the hospital course. Dietary Evaluation Review Comments: 1) Advance pt diet when medically feasible to a [id number]/2gNa diet 2) Continue current plan of care Expected Outcomes/Goals: F/U in 3-5 days Plan discussed with: Patient, SMITHA Bowers DO May 24, 2024 21:20
--- NOTE | 2024-05-24 21:31 | DVHPN2 ---
Progress Note - Dictate Date Seen: May 24, 2024 Medical Necessity Reason Pt with a Central, PICC or Fol: Yes Subjective No new complaints ; patient was placed on isolation when some bugs were found in the room Patient underwent repeat CT with pigtail insertion into the collection S/P PICC line placement, patient is getting IV TPN Abdominal pain has improved ; leukocytosis has improved Patient is having bowel movements vital signs Vital Sign Date Time Temp Pulse Resp B/P (MAP) Pulse Ox O2 Delivery O2 Flow Rate FiO2 05/24/24 18:07 178/56 05/24/24 17:02 90 18 05/24/24 17:00 97.8 95 97.8 05/24/24 08:00 Room Air* 0 21 Total Intake and Output 05/23/24 05/23/24 05/24/24 15:00 23:00 07:00 Intake Total 200 ml 865 ml 2142.02 ml Balance 200 ml 865 ml 2142.02 ml medications Current Medications Medications Dose Ordered Sig/Lanette Route Start Time Stop Time Status Last Admin Dose Admin Atenolol 25 mg BID PO 05/10/24 10:00 Hold 05/10/24 21:38 25 MG Levothyroxine Sodium 125 mcg QAM@0600 PO 05/10/24 06:00 05/24/24 06:45 125 MCG Atorvastatin Calcium 40 mg HS PO 05/10/24 22:00 05/23/24 21:07 40 MG Ondansetron HCl 4 mg Q4HP PRN IV 05/09/24 23:00 Hold Acetaminophen 650 mg Q6HP PRN PO 05/09/24 23:00 05/23/24 15:13 650 MG Nitroglycerin 0.4 mg Q5MINP PRN SL 05/09/24 23:00 Enoxaparin Sodium 130 mg Q12HR SC 05/10/24 10:00 UNV Pantoprazole Sodium 40 mg DAILY IV 05/11/24 10:00 05/24/24 11:32 40 MG Baclofen 5 mg Q8HP PRN PO 05/12/24 19:15 Nifedipine 10 mg Q6HR PO 05/13/24 18:00 05/24/24 07:12 10 MG Metoprolol Succinate 25 mg TID PO 05/13/24 14:00 05/24/24 06:46 25 MG Lisinopril 40 mg DAILY PO 05/14/24 10:00 05/23/24 09:47 40 MG Amiodarone HCl 200 mg Q12HR PO 05/15/24 10:00 05/23/24 21:07 200 MG Amino Acids 0 ml @ 0 mls/hr PER PHARMACY IV 05/18/24 14:15 Diagnostic Test (Pha) 1 strip Q6HR 05/19/24 00:00 05/24/24 18:01 1 STRIP Insulin Human Regular FOLLOW SLIDING SCALE Q6HR SC 05/19/24 00:00 05/22/24 12:00 2 UNITS Dextrose 50 ml UD IV 05/19/24 00:00 Sodium Chloride 10 ml QSHIFT@10,22 IV 05/18/24 22:00 05/24/24 10:00 10 ML Albumin Human 100 ml @ 100 mls/hr BIDD IV 05/24/24 18:00 05/25/24 18:59 05/24/24 18:06 100 MLS/HR Furosemide 40 mg BIDD IV 05/22/24 18:00 05/24/24 18:07 40 MG Fat Emulsion Intravenous 150 ml/Sodium Phosphate 80 meq/ Potassium Chloride 40 meq/ Potassium Acetate 60 meq/Potassium Phosphate 22 meq/ Magnesium Sulfate 24 meq/ Multivitamins 10 ml/Chromium/ Copper/Manganese/ Zinc 1 ml/Insulin Human Regular 2 units/Amino Acids/ Dextrose 1,342.02 ml @ 56 mls/hr [id number] IV 05/23/24 22:00 05/24/24 21:57 05/24/24 02:41 56 MLS/HR Piperacillin Sod/ Tazobactam Sod 100 ml @ 25 mls/hr Q8H IV 05/23/24 20:00 05/24/24 16:32 25 MLS/HR Vancomycin HCl 0 ml @ 0 mls/hr UD IV 05/23/24 20:45 Micafungin Sodium 100 mg/Sodium Chloride 100 ml @ 100 mls/hr DAILY IV 05/24/24 10:00 05/24/24 11:32 100 MLS/HR Vancomycin HCl 200 ml @ 200 mls/hr Q8H IV 05/23/24 22:00 05/24/24 13:46 200 MLS/HR Hydralazine HCl 5 mg Q4HP PRN IV 05/24/24 12:00 05/24/24 13:46 5 MG Fat Emulsion Intravenous 150 ml/Sodium Chloride 40 meq/ Potassium Chloride 100 meq/ Magnesium Sulfate 24 meq/ Multivitamins 10 ml/Chromium/ Copper/Manganese/ Zinc 1 ml/Sodium Phosphate 40 meq/ Amino Acids/ Dextrose 1,337 ml @ 56 mls/hr [id number] IV 05/24/24 22:00 05/25/24 21:59 objective General examination- No acute distress , was able to ambulate to bathroom;morbidly obese female HEENT- PEERLA, EOMI intact Heart S1-S2 audible, rate and rhythm regular, no murmur Lungs- CTAB, no wheeze or rhonchi Abdomen- distended, lower abdominal tenderness, bowel sound+ Musculoskeletal-no acute joint swelling or tenderness or redness Lower extremity- no leg edema, but pain in the left lateral thigh Neurological- cranial nerves intact, no acute dysarthria or dysphagia Skin- no acute rash or purpura laboratory and microbiology Laboratory Tests 05/24/24 05:07 05/22/24 06:00 Test 05/24/24 05:07 Range/Units Serum Glucose 110 H 74-106 mg/dL Problems(with codes): (1) Diverticulitis of intestine with perforation and abscess (2) Elevated brain natriuretic peptide (BNP) level (3) Non-STEMI (non-ST elevated myocardial infarction) (4) Elevated LFTs (5) Diverticulitis (6) Urinary tract infection (7) Cholelithiasis Prognosis Assessment plan Appreciate radiology input and their help with the management ID consult appreciated; Culture revealed E. coli and Proteus mirabilis Continue IV TPN Continue pain control Continue antibiotics as recommended by ID consult Patient may need a PICC line and long-term antibiotics with repeat imaging in 3- 4 weeks Discharge planning as per hospitalist Dietary Evaluation Review Comments: 1) Advance pt diet when medically feasible to a [id number]/2gNa diet 2) Continue current plan of care Expected Outcomes/Goals: F/U in 3-5 days Plan discussed with: Patient, Other (Dr Nico Finn) MITCHELL DEMPSEY MD May 24, 2024 21:31
--- NOTE | 2024-05-24 21:55 | DVHPN2 ---
Consult Progress Note Date Seen: May 24, 2024 Subjective Patient reports: Other (unsure what procedure shes going to be recieving , having some abdominal distention ) Objective vital signs Vital Sign Date Time Temp Pulse Resp B/P (MAP) Pulse Ox O2 Delivery O2 Flow Rate FiO2 05/24/24 18:07 178/56 05/24/24 17:02 90 18 05/24/24 17:00 97.8 95 97.8 05/24/24 08:00 Room Air* 0 21 Total Intake and Output 05/23/24 05/23/24 05/24/24 15:00 23:00 07:00 Intake Total 200 ml 865 ml 2142.02 ml Balance 200 ml 865 ml 2142.02 ml medications Current Medications Medications Dose Ordered Sig/Lanette Route Start Time Stop Time Status Last Admin Dose Admin Atenolol 25 mg BID PO 05/10/24 10:00 Hold 05/10/24 21:38 25 MG Levothyroxine Sodium 125 mcg QAM@0600 PO 05/10/24 06:00 05/24/24 06:45 125 MCG Atorvastatin Calcium 40 mg HS PO 05/10/24 22:00 05/23/24 21:07 40 MG Ondansetron HCl 4 mg Q4HP PRN IV 05/09/24 23:00 Hold Acetaminophen 650 mg Q6HP PRN PO 05/09/24 23:00 05/23/24 15:13 650 MG Nitroglycerin 0.4 mg Q5MINP PRN SL 05/09/24 23:00 Enoxaparin Sodium 130 mg Q12HR SC 05/10/24 10:00 UNV Pantoprazole Sodium 40 mg DAILY IV 05/11/24 10:00 05/24/24 11:32 40 MG Baclofen 5 mg Q8HP PRN PO 05/12/24 19:15 Nifedipine 10 mg Q6HR PO 05/13/24 18:00 05/24/24 07:12 10 MG Metoprolol Succinate 25 mg TID PO 05/13/24 14:00 05/24/24 06:46 25 MG Lisinopril 40 mg DAILY PO 05/14/24 10:00 05/23/24 09:47 40 MG Amiodarone HCl 200 mg Q12HR PO 05/15/24 10:00 05/23/24 21:07 200 MG Amino Acids 0 ml @ 0 mls/hr PER PHARMACY IV 05/18/24 14:15 Diagnostic Test (Pha) 1 strip Q6HR 05/19/24 00:00 05/24/24 18:01 1 STRIP Insulin Human Regular FOLLOW SLIDING SCALE Q6HR SC 05/19/24 00:00 05/22/24 12:00 2 UNITS Dextrose 50 ml UD IV 05/19/24 00:00 Sodium Chloride 10 ml QSHIFT@10,22 IV 05/18/24 22:00 05/24/24 10:00 10 ML Albumin Human 100 ml @ 100 mls/hr BIDD IV 05/24/24 18:00 05/25/24 18:59 05/24/24 18:06 100 MLS/HR Furosemide 40 mg BIDD IV 05/22/24 18:00 05/24/24 18:07 40 MG Fat Emulsion Intravenous 150 ml/Sodium Phosphate 80 meq/ Potassium Chloride 40 meq/ Potassium Acetate 60 meq/Potassium Phosphate 22 meq/ Magnesium Sulfate 24 meq/ Multivitamins 10 ml/Chromium/ Copper/Manganese/ Zinc 1 ml/Insulin Human Regular 2 units/Amino Acids/ Dextrose 1,342.02 ml @ 56 mls/hr [id number] IV 05/23/24 22:00 05/24/24 21:57 05/24/24 02:41 56 MLS/HR Piperacillin Sod/ Tazobactam Sod 100 ml @ 25 mls/hr Q8H IV 05/23/24 20:00 05/24/24 16:32 25 MLS/HR Vancomycin HCl 0 ml @ 0 mls/hr UD IV 05/23/24 20:45 Micafungin Sodium 100 mg/Sodium Chloride 100 ml @ 100 mls/hr DAILY IV 05/24/24 10:00 05/24/24 11:32 100 MLS/HR Vancomycin HCl 200 ml @ 200 mls/hr Q8H IV 05/23/24 22:00 05/24/24 13:46 200 MLS/HR Hydralazine HCl 5 mg Q4HP PRN IV 05/24/24 12:00 05/24/24 13:46 5 MG Fat Emulsion Intravenous 150 ml/Sodium Chloride 40 meq/ Potassium Chloride 100 meq/ Magnesium Sulfate 24 meq/ Multivitamins 10 ml/Chromium/ Copper/Manganese/ Zinc 1 ml/Sodium Phosphate 40 meq/ Amino Acids/ Dextrose 1,337 ml @ 56 mls/hr [id number] IV 05/24/24 22:00 05/25/24 21:59 Physical Exam: General: NAD Neck: Supple. No masses. HEENT: PERRL. Normal lids and conjunctiva. Moist mucous membranes. Oropharynx without lesions, exudates, or excessive erythema. Normal appearance of the external aspects of the nose and ears. Heart: Regular rhythm, normal rate. No murmur. No lower extremity edema. Lungs: Normal respiratory effort. Clear to auscultation bilaterally. No wheezes. No crackles. Abdomen: Soft. slightly tender. Non-distended. No masses or abdominal hernia. Msk: No digital cyanosis. Normal strength and tone in all 4 limbs. Skin: Warm and dry, no rashes. Neuro: Alert. No facial droop or slurred speech. Extra-ocular movements intact. Sensation intact to soft touch in all 4 limbs. Psych: Appropriate mood. Full affect. Oriented to person, place, time, and situation. laboratory and microbiology Laboratory Tests 05/24/24 05:07 05/22/24 06:00 Test 05/24/24 05:07 Range/Units Serum Glucose 110 H 74-106 mg/dL Problem List/Assessment/Plan Problems(with codes): (1) Atrial fibrillation (2) Hiatal hernia (3) Cholelithiasis (4) Urinary tract infection (5) Diverticulitis (6) Elevated LFTs (7) Non-STEMI (non-ST elevated myocardial infarction) (8) Elevated brain natriuretic peptide (BNP) level (9) Diverticulitis of intestine with perforation and abscess Problem List/Assessment/Plan ID Problem List: - Acute diverticulitis - Diverticular abscess - Acute abdominal pain UTI - Elevated troponin - Hypokalemia - Morbid obesity - Diarrhea - Hypertension - Hypothyroidism Assessment: This is a 73 y.o. female with a past medical history of hypertension, hyperlipidemia, kidney transplant, hypothyroidism, morbid obesity, and end-stage renal disease who presents with lower abdominal pain on May 09. The pain was nonradiating and associated with nausea, diarrhea, and poor appetite. The patient visited [facility] urgent care on May 09 for unprovoked onset of persisting symptoms except with the exception of diarrhea for the past days. The patient reported experiencing urinary retention, constipation, and fever initially for 2 days, then it subsided on its own. CT abdomen revealed diverticulitis with air in the retroperitoneum, findings suggestive of abscess, cholestasis, and small hiatal hernia. Chest X-ray showed no acute findings, and HIDA scan showed nonvisualization of the gallbladder suggestive of cystic duct obstruction. Repeat CT abdomen on May 15 showed moderate fat stranding and induration of the central mesentery, with a 6.5 by 6.2 cm collection of air and minimal fluid suggestive of acute diverticulitis with rupture and associated abscess. The patient underwent IR drainage of the pelvic abscess on July 16. Culture revealed E. coli and Proteus mirabilis, both sensitive to ANCEF and Unison. The patient has been on ceftriaxone and Flagyl. 05/21: appears to require prolonged TPN needs , pharmacy is not providing ceftazidime. 05/22: patient has had over 135 ccs of drainage , likely sufficient for antibiotics to be appropriate monotherapy for treatment 05/23: white count has normalized, microbiology shows E Coli, proteus , enterococcus and yeast. the E Coli and proteus are sensitive to zosyn. Ct scan shos a persistent abscess in the central pelvis 7.76 by 6.6 . pictile cathedeter should be removed and a new one placed . does not appear that patient would have any drug contraindications to vancomycin or fluconazol and start by IV because patient is NPO 05/24: she had a Ct guided drainage adjustment and pic tail was placed on her abdomen on a different location , unlcear how much drainage was relieved from procedure. New piccline placed. White count continues to downtred Plan: - continue micafungen and vancomycin - the decision on whether the patient will need additional surgery will be based off how much drainage is able to come out of the new drain - continue Zosyn for 1 month and then a follow up image needed at the end of the month - Monitor drainage and consider additional IR drainage or surgical I&D if necessary - Discuss the need for extended IV antibiotic therapy, potentially 30 days with follow up CT abd pelvis afterwards Isolation Precautions: standard Assessment and plan were discussed with the patient as written above. Plan is subject to change pending incorporation of new incoming information/diagnostics. Updates may be added as an addendum at the bottom (OR TOP) of this note. Thank you for the interesting consult. ID will continue to follow. Please contact Infectious Disease for any questions or concerns. Quincy Wooten M.D. [facility] Plan discussed with: Other Dietary Evaluation Review Comments: 1) Advance pt diet when medically feasible to a [id number]/[id number] diet 2) Continue current plan of care Expected Outcomes/Goals: F/U in 3-5 days QUINCY WOOTEN MD May 24, 2024 21:55
[2024-05-25] VITALS (8 sets, daily range): BP systolic 113–157; BP diastolic 40–74; PULSE 8–97; RESP 16–18; TEMP 98–99.2; O2SAT 89–95
[2024-05-25] MEDS: TPN PER PHARMACY IV NR ×2 (00:15→22:54)
[2024-05-25 10:31] LABS: Alanine Aminotransferase 10 U/L (7-40); Albumin 4.6 g/dL (3.2-4.8); Alkaline Phosphatase 78 U/L (46-116); Anion Gap 8 (5-15); Aspartate Aminotransferase 12 U/L (13-40); Blood Urea Nitrogen 13 mg/dL (9-23); Calcium 9.9 mg/dL (8.7-10.4); Carbon Dioxide 31 mmol/L (20-31); Chloride 99 mmol/L (98-107); Glucose 143 mg/dL (74-106); Magnesium 2.2 mg/dL (1.6-2.6); Potassium 3.9 mmol/L (3.5-5.1); Sodium 138 mmol/L (136-145)
[2024-05-25 10:32] LABS: Bilirubin, Total 0.6 mg/dL (0.2-1.0); Phosphorus 2.8 mg/dL (2.4-5.1); Total Protein 7.5 g/dL (5.7-8.2)
[2024-05-25 11:35] LABS: Basophils # (auto) 0.1 10 ^3/uL (0-0.2); Eosinophils # (auto) 0.9 10 ^3/uL (0-0.8); Lymphocytes # (auto) 1.4 10 ^3/uL (0.4-5.4); Mean Corpuscular Hgb Conc. 33.4 g/dL (32.0-36.0); Neutrophils % (auto) 65.3 % (37.0-80.0); Nucleated Red Blood Cells % 0.1 %
[2024-05-25 11:38] LABS: Basophils % (auto) 1.3 % (0.0-2.0); Eosinophils % (auto) 9.2 % (0.0-7.0); Hematocrit 33.9 % (36.0-46.0); Hemoglobin 11.3 g/dL (12.2-16.2); Lymphocytes % (auto) 14.3 % (10.0-50.0); Mean Corpuscular Hemoglobin 30.2 pg (28.0-32.0); Mean Corpuscular Volume 90.6 fL (80.0-100.0); Monocytes % (auto) 9.9 % (0.0-12.0); Neutrophils # (auto) 6.6 10 ^3/uL (1.6-8.6); Platelet Count (auto) 601 10^3/uL (140-450); Red Blood Cells 3.75 10^6/uL (4.0-5.20); Red Cell Distribution Width 15.5 % (11.8-14.3)
--- NOTE | 2024-05-25 17:14 | DVHPN2 ---
Progress Note - Dictate Date Seen: May 25, 2024 Medical Necessity Reason Pt with a Central, PICC or Fol: Yes Subjective Patient was seen and evaluated in follow up. Patient was placed under isolation precautions due to the presence of bedbugs. Patient reports abdominal pain feels improved today. She is having BMs. Occult blood stool is pending. vital signs Vital Sign Date Time Temp Pulse Resp B/P (MAP) Pulse Ox O2 Delivery O2 Flow Rate FiO2 05/25/24 10:02 128/65 05/25/24 09:00 99.2 92 17 89 99.2 05/25/24 08:00 Room Air* 0 21 Total Intake and Output 05/24/24 05/24/24 05/25/24 15:00 23:00 07:00 Intake Total 300 ml 500 ml Balance 300 ml 500 ml medications Current Medications Medications Dose Ordered Sig/Lanette Route Start Time Stop Time Status Last Admin Dose Admin Atenolol 25 mg BID PO 05/10/24 10:00 Hold 05/10/24 21:38 25 MG Levothyroxine Sodium 125 mcg QAM@0600 PO 05/10/24 06:00 05/25/24 06:44 125 MCG Atorvastatin Calcium 40 mg HS PO 05/10/24 22:00 05/24/24 23:54 40 MG Ondansetron HCl 4 mg Q4HP PRN IV 05/09/24 23:00 Hold Acetaminophen 650 mg Q6HP PRN PO 05/09/24 23:00 05/23/24 15:13 650 MG Nitroglycerin 0.4 mg Q5MINP PRN SL 05/09/24 23:00 Enoxaparin Sodium 130 mg Q12HR SC 05/10/24 10:00 UNV Pantoprazole Sodium 40 mg DAILY IV 05/11/24 10:00 05/25/24 10:01 40 MG Baclofen 5 mg Q8HP PRN PO 05/12/24 19:15 Nifedipine 10 mg Q6HR PO 05/13/24 18:00 05/25/24 06:45 10 MG Metoprolol Succinate 25 mg TID PO 05/13/24 14:00 05/25/24 06:45 25 MG Lisinopril 40 mg DAILY PO 05/14/24 10:00 05/25/24 10:02 40 MG Amiodarone HCl 200 mg Q12HR PO 05/15/24 10:00 05/25/24 10:01 200 MG Amino Acids 0 ml @ 0 mls/hr PER PHARMACY IV 05/18/24 14:15 Diagnostic Test (Pha) 1 strip Q6HR 05/19/24 00:00 05/25/24 06:50 1 STRIP Insulin Human Regular FOLLOW SLIDING SCALE Q6HR SC 05/19/24 00:00 05/25/24 06:00 2 UNITS Dextrose 50 ml UD IV 05/19/24 00:00 Sodium Chloride 10 ml QSHIFT@10,22 IV 05/18/24 22:00 05/25/24 10:03 10 ML Albumin Human 100 ml @ 100 mls/hr BIDD IV 05/24/24 18:00 05/25/24 18:59 05/25/24 06:18 100 MLS/HR Furosemide 40 mg BIDD IV 05/22/24 18:00 05/25/24 06:39 40 MG Piperacillin Sod/ Tazobactam Sod 100 ml @ 25 mls/hr Q8H IV 05/23/24 20:00 05/25/24 06:03 25 MLS/HR Vancomycin HCl 0 ml @ 0 mls/hr UD IV 05/23/24 20:45 Micafungin Sodium 100 mg/Sodium Chloride 100 ml @ 100 mls/hr DAILY IV 05/24/24 10:00 05/25/24 10:01 100 MLS/HR Vancomycin HCl 200 ml @ 200 mls/hr Q8H IV 05/23/24 22:00 05/25/24 05:58 200 MLS/HR Hydralazine HCl 5 mg Q4HP PRN IV 05/24/24 12:00 05/24/24 13:46 5 MG Fat Emulsion Intravenous 150 ml/Sodium Chloride 40 meq/ Potassium Chloride 100 meq/ Magnesium Sulfate 24 meq/ Multivitamins 10 ml/Chromium/ Copper/Manganese/ Zinc 1 ml/Sodium Phosphate 40 meq/ Amino Acids/ Dextrose 1,337 ml @ 56 mls/hr [id number] IV 05/24/24 22:00 05/25/24 21:59 05/25/24 00:15 56 MLS/HR objective GENERAL: Awake, alert, oriented. Morbidly obese. LUNGS: Clear. CARDIOVASCULAR: Tachycardic. ABDOMEN: Soft, tender in the left lower quadrant, nondistended, bowel sounds present all 4 quadrants, no guarding. laboratory and microbiology Laboratory Tests 05/25/24 10:00 Test 05/25/24 10:00 Range/Units Serum Glucose 143 H 74-106 mg/dL Problem List Atrial fibrillation with rapid ventricular response. Acute diverticulitis with microperforation. Morbid obesity. Profound leukocytosis. Acute abdominal pain. Elevated troponin. Hypokalemia. UTI. Morbid obesity. Diarrhea. Hypertension. Hypothyroidism. Assessment/Plan Continued all current supportive medical care. Morphine and [place] for pain management. Amiodarone. Lipitor, Metoprolol. IV antibiotics as ordered. GI prophylactics. Lisinopril, Nifedipine. Additional plan as per the hospital course. Dietary Evaluation Review Comments: 1) Advance pt diet when medically feasible to a [id number] diet 2) Continue current plan of care Expected Outcomes/Goals: F/U in 3-5 days Plan discussed with: Patient TRESA MCFARLANE MD May 25, 2024 11:14
[2024-05-25] MEDS: HYDROmorphone HCL 2 MG/ML VL/or syr IV PRN (17:30)
--- NOTE | 2024-05-25 19:04 | DVHPN2 ---
Progress Note - Dictate Date Seen: May 25, 2024 Medical Necessity Reason Pt with a Central, PICC or Fol: Yes Subjective No new complaints; stool for occult blood negative Patient underwent repeat CT with pigtail reinsertion into the collection yesterday Pus fluid culture showing multiple organisms : Ecoli, Proteus Mirabilis; Enterocoocum faecalis; Yeast vital signs Vital Sign Date Time Temp Pulse Resp B/P (MAP) Pulse Ox O2 Delivery O2 Flow Rate FiO2 05/25/24 18:00 86 18 127/72 05/25/24 17:00 98.6 94 98.6 05/25/24 08:00 Room Air* 0 21 Total Intake and Output 05/24/24 05/24/24 05/25/24 15:00 23:00 07:00 Intake Total 300 ml 500 ml Balance 300 ml 500 ml medications Current Medications Medications Dose Ordered Sig/Lanette Route Start Time Stop Time Status Last Admin Dose Admin Atenolol 25 mg BID PO 05/10/24 10:00 Hold 05/10/24 21:38 25 MG Levothyroxine Sodium 125 mcg QAM@0600 PO 05/10/24 06:00 05/25/24 06:44 125 MCG Atorvastatin Calcium 40 mg HS PO 05/10/24 22:00 05/24/24 23:54 40 MG Ondansetron HCl 4 mg Q4HP PRN IV 05/09/24 23:00 Hold Acetaminophen 650 mg Q6HP PRN PO 05/09/24 23:00 05/23/24 15:13 650 MG Nitroglycerin 0.4 mg Q5MINP PRN SL 05/09/24 23:00 Enoxaparin Sodium 130 mg Q12HR SC 05/10/24 10:00 UNV Pantoprazole Sodium 40 mg DAILY IV 05/11/24 10:00 05/25/24 10:01 40 MG Baclofen 5 mg Q8HP PRN PO 05/12/24 19:15 Nifedipine 10 mg Q6HR PO 05/13/24 18:00 05/25/24 17:29 10 MG Metoprolol Succinate 25 mg TID PO 05/13/24 14:00 05/25/24 14:42 25 MG Lisinopril 40 mg DAILY PO 05/14/24 10:00 05/25/24 10:02 40 MG Amiodarone HCl 200 mg Q12HR PO 05/15/24 10:00 05/25/24 10:01 200 MG Amino Acids 0 ml @ 0 mls/hr PER PHARMACY IV 05/18/24 14:15 Diagnostic Test (Pha) 1 strip Q6HR 05/19/24 00:00 05/25/24 18:04 1 STRIP Insulin Human Regular FOLLOW SLIDING SCALE Q6HR SC 05/19/24 00:00 05/25/24 18:05 2 UNITS Dextrose 50 ml UD IV 05/19/24 00:00 Sodium Chloride 10 ml QSHIFT@10,22 IV 05/18/24 22:00 05/25/24 10:03 10 ML Albumin Human 100 ml @ 100 mls/hr BIDD IV 05/24/24 18:00 05/25/24 18:59 05/25/24 17:22 100 MLS/HR Furosemide 40 mg BIDD IV 05/22/24 18:00 05/25/24 17:28 40 MG Piperacillin Sod/ Tazobactam Sod 100 ml @ 25 mls/hr Q8H IV 05/23/24 20:00 05/25/24 11:54 25 MLS/HR Vancomycin HCl 0 ml @ 0 mls/hr UD IV 05/23/24 20:45 Micafungin Sodium 100 mg/Sodium Chloride 100 ml @ 100 mls/hr DAILY IV 05/24/24 10:00 05/25/24 10:01 100 MLS/HR Hydralazine HCl 5 mg Q4HP PRN IV 05/24/24 12:00 05/24/24 13:46 5 MG Fat Emulsion Intravenous 150 ml/Sodium Chloride 40 meq/ Potassium Chloride 100 meq/ Magnesium Sulfate 24 meq/ Multivitamins 10 ml/Chromium/ Copper/Manganese/ Zinc 1 ml/Sodium Phosphate 40 meq/ Amino Acids/ Dextrose 1,337 ml @ 56 mls/hr [id number] IV 05/24/24 22:00 05/25/24 21:59 05/25/24 00:15 56 MLS/HR Fat Emulsion Intravenous 150 ml/Sodium Chloride 40 meq/ Sodium Phosphate 20 meq/Potassium Chloride 40 meq/ Potassium Phosphate 22 meq/ Magnesium Sulfate 20 meq/ Multivitamins 10 ml/Chromium/ Copper/Manganese/ Zinc 1 ml/Amino Acids/Dextrose 1,306 ml @ 54 mls/hr [id number] IV 05/25/24 22:00 05/26/24 21:59 Hydromorphone HCl 0.2 mg Q3HPRN PRN IV 05/25/24 13:45 05/25/24 17:30 0.2 MG Hydromorphone HCl 0.4 mg Q3HR PRN IV 05/25/24 13:45 Vancomycin HCl 200 ml @ 200 mls/hr Q10H IV 05/26/24 00:00 objective General examination- No acute distress , was able to ambulate to bathroom;morbidly obese female HEENT- PEERLA, EOMI intact Heart S1-S2 audible, rate and rhythm regular, no murmur Lungs- CTAB, no wheeze or rhonchi Abdomen- distended, lower abdominal tenderness, bowel sound+ Musculoskeletal-no acute joint swelling or tenderness or redness Lower extremity- no leg edema, but pain in the left lateral thigh Neurological- cranial nerves intact, no acute dysarthria or dysphagia Skin- no acute rash or purpura laboratory and microbiology Laboratory Tests 05/25/24 11:15 05/25/24 10:00 Test 05/25/24 10:00 Range/Units Serum Glucose 143 H 74-106 mg/dL Problems(with codes): (1) Diverticulitis of intestine with perforation and abscess (2) Non-STEMI (non-ST elevated myocardial infarction) (3) Diverticulitis (4) Urinary tract infection (5) Cholelithiasis Prognosis A/P ID and IR intervention appreciated Pt will likely need one month of Abx with repeat CT afterwrds Continue IV antibiotics, patient is on vancomycin Zosyn and cefepime and micafungin Continue supportive care Patient is NPO on TPN Dietary Evaluation Review Comments: 1) Advance pt diet when medically feasible to a [id number]/2gNa diet 2) Continue current plan of care Expected Outcomes/Goals: F/U in 3-5 days Plan discussed with: Other (Dr Mikey Dumont) MITCHELL DUMONT MD May 25, 2024 19:04
--- NOTE | 2024-05-25 19:45 | DVHPN2 ---
Progress Note - Dictate Date Seen: May 25, 2024 Medical Necessity Reason Pt with a Central, PICC or Fol: Yes Subjective Patient was seen and evaluated in follow up. No acute events overnight. Patient complains of abdominal pain, 03/20. Underwent repeat CT with pigtail reinsertion into the collection yesterday. Cultures are positive for E.Coli, Proteus Mirabilis, Enterococcum faecalis, Yeast. Stool for occult blood negative. vital signs Vital Sign Date Time Temp Pulse Resp B/P (MAP) Pulse Ox O2 Delivery O2 Flow Rate FiO2 05/25/24 18:00 86 18 127/72 05/25/24 17:00 98.6 94 98.6 05/25/24 08:00 Room Air* 0 21 Total Intake and Output 05/24/24 05/24/24 05/25/24 15:00 23:00 07:00 Intake Total 300 ml 500 ml Balance 300 ml 500 ml medications Current Medications Medications Dose Ordered Sig/Lanette Route Start Time Stop Time Status Last Admin Dose Admin Atenolol 25 mg BID PO 05/10/24 10:00 Hold 05/10/24 21:38 25 MG Levothyroxine Sodium 125 mcg QAM@0600 PO 05/10/24 06:00 05/25/24 06:44 125 MCG Atorvastatin Calcium 40 mg HS PO 05/10/24 22:00 05/24/24 23:54 40 MG Ondansetron HCl 4 mg Q4HP PRN IV 05/09/24 23:00 Hold Acetaminophen 650 mg Q6HP PRN PO 05/09/24 23:00 05/23/24 15:13 650 MG Nitroglycerin 0.4 mg Q5MINP PRN SL 05/09/24 23:00 Enoxaparin Sodium 130 mg Q12HR SC 05/10/24 10:00 UNV Pantoprazole Sodium 40 mg DAILY IV 05/11/24 10:00 05/25/24 10:01 40 MG Baclofen 5 mg Q8HP PRN PO 05/12/24 19:15 Nifedipine 10 mg Q6HR PO 05/13/24 18:00 05/25/24 17:29 10 MG Metoprolol Succinate 25 mg TID PO 05/13/24 14:00 05/25/24 14:42 25 MG Lisinopril 40 mg DAILY PO 05/14/24 10:00 05/25/24 10:02 40 MG Amiodarone HCl 200 mg Q12HR PO 05/15/24 10:00 05/25/24 10:01 200 MG Amino Acids 0 ml @ 0 mls/hr PER PHARMACY IV 05/18/24 14:15 Diagnostic Test (Pha) 1 strip Q6HR 05/19/24 00:00 05/25/24 18:04 1 STRIP Insulin Human Regular FOLLOW SLIDING SCALE Q6HR SC 05/19/24 00:00 05/25/24 18:05 2 UNITS Dextrose 50 ml UD IV 05/19/24 00:00 Sodium Chloride 10 ml QSHIFT@10,22 IV 05/18/24 22:00 05/25/24 10:03 10 ML Furosemide 40 mg BIDD IV 05/22/24 18:00 05/25/24 17:28 40 MG Piperacillin Sod/ Tazobactam Sod 100 ml @ 25 mls/hr Q8H IV 05/23/24 20:00 05/25/24 11:54 25 MLS/HR Vancomycin HCl 0 ml @ 0 mls/hr UD IV 05/23/24 20:45 Micafungin Sodium 100 mg/Sodium Chloride 100 ml @ 100 mls/hr DAILY IV 05/24/24 10:00 05/25/24 10:01 100 MLS/HR Hydralazine HCl 5 mg Q4HP PRN IV 05/24/24 12:00 05/24/24 13:46 5 MG Fat Emulsion Intravenous 150 ml/Sodium Chloride 40 meq/ Potassium Chloride 100 meq/ Magnesium Sulfate 24 meq/ Multivitamins 10 ml/Chromium/ Copper/Manganese/ Zinc 1 ml/Sodium Phosphate 40 meq/ Amino Acids/ Dextrose 1,337 ml @ 56 mls/hr [id number] IV 05/24/24 22:00 05/25/24 21:59 05/25/24 00:15 56 MLS/HR Fat Emulsion Intravenous 150 ml/Sodium Chloride 40 meq/ Sodium Phosphate 20 meq/Potassium Chloride 40 meq/ Potassium Phosphate 22 meq/ Magnesium Sulfate 20 meq/ Multivitamins 10 ml/Chromium/ Copper/Manganese/ Zinc 1 ml/Amino Acids/Dextrose 1,306 ml @ 54 mls/hr [id number] IV 05/25/24 22:00 05/26/24 21:59 Hydromorphone HCl 0.2 mg Q3HPRN PRN IV 05/25/24 13:45 05/25/24 17:30 0.2 MG Hydromorphone HCl 0.4 mg Q3HR PRN IV 05/25/24 13:45 Vancomycin HCl 200 ml @ 200 mls/hr Q10H IV 05/26/24 00:00 objective Physical exam: Vitals and nursing notes reviewed. General: In no acute distress, morbidly obese. HEENT: Normocephalic atraumatic, mucous membranes moist and pink. Neck: Cervical and supraclavicular nodes normal without enlargement. Pulmonary: Clear to auscultation and percussion bilaterally. Cardiac: RRR. No murmur. Abdomen: Soft, tender, nondistended, bowel sounds present all 4 quadrants, no guarding. Musculoskeletal: No deformity. Neuro: Cranial nerves II through XII grossly intact, normal affect and speech, no focal motor deficits. Skin: Warm, dry, normal color and texture, no rash. laboratory and microbiology Laboratory Tests 05/25/24 11:15 05/25/24 10:00 Test 05/25/24 10:00 Range/Units Serum Glucose 143 H 74-106 mg/dL Problem List Acute diverticulitis Acute abdominal pain Elevated troponin Hypokalemia UTI Morbid obesity Assessment/Plan Continue all current supportive medical care. Surgery, GI and Cardiology consults. S/p CT-guided drainage of abscess with IR 05/15. Replacement of pigtail 05/24. IV Vancomycin, Zosyn and Micafungin. Patient will likely need one month of IV Abx per surgery. NPO. Nutritional support with TPN per pharmacy. Protonix 40 mg IV daily. Enoxaparin 130 mg SC q12h. Pain management prn. Optimization of BP with IV Hydralazine. Additional plan as per the hospital course. Dietary Evaluation Review Comments: 1) Advance pt diet when medically feasible to a [id number]/[id number] diet 2) Continue current plan of care Expected Outcomes/Goals: F/U in 3-5 days Plan discussed with: Patient, Other (RN) SMITHA MCFARLANE DO May 25, 2024 19:45
--- NOTE | 2024-05-25 22:19 | DVHPN2 ---
Consult Progress Note Date Seen: May 25, 2024 Subjective Patient reports: Other (at least 25ccs of preliminary output os coming out from the new drain, blood pressure has improved. has had more bowle movements, comfortable but blood sugars are slightly elevated) Objective vital signs Vital Sign Date Time Temp Pulse Resp B/P (MAP) Pulse Ox O2 Delivery O2 Flow Rate FiO2 05/25/24 18:00 86 18 127/72 05/25/24 17:00 98.6 94 98.6 05/25/24 08:00 Room Air* 0 21 Total Intake and Output 05/24/24 05/24/24 05/25/24 15:00 23:00 07:00 Intake Total 300 ml 500 ml Balance 300 ml 500 ml medications Current Medications Medications Dose Ordered Sig/Lanette Route Start Time Stop Time Status Last Admin Dose Admin Atenolol 25 mg BID PO 05/10/24 10:00 Hold 05/10/24 21:38 25 MG Levothyroxine Sodium 125 mcg QAM@0600 PO 05/10/24 06:00 05/25/24 06:44 125 MCG Atorvastatin Calcium 40 mg HS PO 05/10/24 22:00 05/24/24 23:54 40 MG Ondansetron HCl 4 mg Q4HP PRN IV 05/09/24 23:00 Hold Acetaminophen 650 mg Q6HP PRN PO 05/09/24 23:00 05/23/24 15:13 650 MG Nitroglycerin 0.4 mg Q5MINP PRN SL 05/09/24 23:00 Enoxaparin Sodium 130 mg Q12HR SC 05/10/24 10:00 UNV Pantoprazole Sodium 40 mg DAILY IV 05/11/24 10:00 05/25/24 10:01 40 MG Baclofen 5 mg Q8HP PRN PO 05/12/24 19:15 Nifedipine 10 mg Q6HR PO 05/13/24 18:00 05/25/24 17:29 10 MG Metoprolol Succinate 25 mg TID PO 05/13/24 14:00 05/25/24 14:42 25 MG Lisinopril 40 mg DAILY PO 05/14/24 10:00 05/25/24 10:02 40 MG Amiodarone HCl 200 mg Q12HR PO 05/15/24 10:00 05/25/24 10:01 200 MG Amino Acids 0 ml @ 0 mls/hr PER PHARMACY IV 05/18/24 14:15 Diagnostic Test (Pha) 1 strip Q6HR 05/19/24 00:00 05/25/24 18:04 1 STRIP Insulin Human Regular FOLLOW SLIDING SCALE Q6HR SC 05/19/24 00:00 05/25/24 18:05 2 UNITS Dextrose 50 ml UD IV 05/19/24 00:00 Sodium Chloride 10 ml QSHIFT@10,22 IV 05/18/24 22:00 05/25/24 10:03 10 ML Furosemide 40 mg BIDD IV 05/22/24 18:00 05/25/24 17:28 40 MG Piperacillin Sod/ Tazobactam Sod 100 ml @ 25 mls/hr Q8H IV 05/23/24 20:00 05/25/24 20:40 25 MLS/HR Vancomycin HCl 0 ml @ 0 mls/hr UD IV 05/23/24 20:45 Micafungin Sodium 100 mg/Sodium Chloride 100 ml @ 100 mls/hr DAILY IV 05/24/24 10:00 05/25/24 10:01 100 MLS/HR Hydralazine HCl 5 mg Q4HP PRN IV 05/24/24 12:00 05/24/24 13:46 5 MG Fat Emulsion Intravenous 150 ml/Sodium Chloride 40 meq/ Sodium Phosphate 20 meq/Potassium Chloride 40 meq/ Potassium Phosphate 22 meq/ Magnesium Sulfate 20 meq/ Multivitamins 10 ml/Chromium/ Copper/Manganese/ Zinc 1 ml/Amino Acids/Dextrose 1,306 ml @ 54 mls/hr [id number] IV 05/25/24 22:00 05/26/24 21:59 Hydromorphone HCl 0.2 mg Q3HPRN PRN IV 05/25/24 13:45 05/25/24 17:30 0.2 MG Hydromorphone HCl 0.4 mg Q3HR PRN IV 05/25/24 13:45 Vancomycin HCl 200 ml @ 200 mls/hr Q10H IV 05/26/24 00:00 Physical Exam: General: NAD Neck: Supple. No masses. HEENT: PERRL. Normal lids and conjunctiva. Moist mucous membranes. Oropharynx without lesions, exudates, or excessive erythema. Normal appearance of the external aspects of the nose and ears. Heart: Regular rhythm, normal rate. No murmur. No lower extremity edema. Lungs: Normal respiratory effort. Clear to auscultation bilaterally. No wheezes. No crackles. Abdomen: Soft. slightly tender. Non-distended. No masses or abdominal hernia. Msk: No digital cyanosis. Normal strength and tone in all 4 limbs. Skin: Warm and dry, no rashes. Neuro: Alert. No facial droop or slurred speech. Extra-ocular movements intact. Sensation intact to soft touch in all 4 limbs. Psych: Appropriate mood. Full affect. Oriented to person, place, time, and situation. laboratory and microbiology Laboratory Tests 05/25/24 11:15 05/25/24 10:00 Test 05/25/24 10:00 Range/Units Serum Glucose 143 H 74-106 mg/dL Problem List/Assessment/Plan Problems(with codes): (1) Diverticulitis of intestine with perforation and abscess (2) Elevated brain natriuretic peptide (BNP) level (3) Non-STEMI (non-ST elevated myocardial infarction) (4) Elevated LFTs (5) Diverticulitis (6) Urinary tract infection (7) Cholelithiasis (8) Hiatal hernia (9) Atrial fibrillation Problem List/Assessment/Plan ID Problem List: - Acute diverticulitis - Diverticular abscess - Acute abdominal pain UTI - Elevated troponin - Hypokalemia - Morbid obesity - Diarrhea - Hypertension - Hypothyroidism Assessment: This is a 73 y.o. female with a past medical history of hypertension, hyperlipidemia, kidney transplant, hypothyroidism, morbid obesity, and end-stage renal disease who presents with lower abdominal pain on May 09. The pain was nonradiating and associated with nausea, diarrhea, and poor appetite. The patient visited [facility] urgent care on May 09 for unprovoked onset of persisting symptoms except with the exception of diarrhea for the past days. The patient reported experiencing urinary retention, constipation, and fever initially for 2 days, then it subsided on its own. CT abdomen revealed diverticulitis with air in the retroperitoneum, findings suggestive of abscess, cholestasis, and small hiatal hernia. Chest X-ray showed no acute findings, and HIDA scan showed nonvisualization of the gallbladder suggestive of cystic duct obstruction. Repeat CT abdomen on May 15 showed moderate fat stranding and induration of the central mesentery, with a 6.5 by 6.2 cm collection of air and minimal fluid suggestive of acute diverticulitis with rupture and associated abscess. The patient underwent IR drainage of the pelvic abscess on July 16. Culture revealed E. coli and Proteus mirabilis, both sensitive to ANCEF and Unison. The patient has been on ceftriaxone and Flagyl. 05/21: appears to require prolonged TPN needs , pharmacy is not providing ceftazidime. 05/22: patient has had over 135 ccs of drainage , likely sufficient for antibiotics to be appropriate monotherapy for treatment 05/23: white count has normalized, microbiology shows E Coli, proteus , enterococcus and yeast. the E Coli and proteus are sensitive to zosyn. Ct scan shos a persistent abscess in the central pelvis 7.76 by 6.6 . pictile cathedeter should be removed and a new one placed . does not appear that patient would have any drug contraindications to vancomycin or fluconazol and start by IV because patient is NPO 05/24: she had a Ct guided drainage adjustment and pic tail was placed on her abdomen on a different location , unlcear how much drainage was relieved from procedure. New piccline placed. White count continues to downtred 05/25:white count coming down , more output coming from the drain. Plan: - continue micafungen and vancomycin and zosyn - as more prevalent drainage continues to come out and surgery clears patient for oral diets, will transition patient to oral antibiotics , otherwise patient will need additional surgery based off drainage - Monitor drainage and consider additional IR drainage or surgical I&D if necessary - Discuss the need for extended IV antibiotic therapy, potentially 30 days with follow up CT abd pelvis afterwards Isolation Precautions: standard Assessment and plan were discussed with the patient as written above. Plan is subject to change pending incorporation of new incoming information/diagnostics. Updates may be added as an addendum at the bottom (OR TOP) of this note. Thank you for the interesting consult. ID will continue to follow. Please contact Infectious Disease for any questions or concerns. Quincy Wooten M.D. [facility] Plan discussed with: Other Dietary Evaluation Review Comments: 1) Advance pt diet when medically feasible to a [id number]/[id number] diet 2) Continue current plan of care Expected Outcomes/Goals: F/U in 3-5 days QUINCY WOOTEN MD May 25, 2024 22:19
[2024-05-26] VITALS (8 sets, daily range): BP systolic 125–160; BP diastolic 58–69; PULSE 72–93; RESP 17–20; TEMP 97.7–98.4; O2SAT 78–96
[2024-05-26] MEDS: VANCOMYCIN 1GM/200ML PREMIX 200 ML IV SCH (00:11)
[2024-05-26 08:12] LABS: Albumin 4.3 g/dL (3.2-4.8); Alkaline Phosphatase 69 U/L (46-116); Anion Gap 9 (5-15); Aspartate Aminotransferase 11 U/L (13-40); BUN/Creatinine Ratio 20.9 (10.0-20.0); Basophils # (auto) 0.1 10 ^3/uL (0-0.2); Bilirubin, Total 0.5 mg/dL (0.2-1.0); Blood Urea Nitrogen 19 mg/dL (9-23); Calcium 9.6 mg/dL (8.7-10.4); Carbon Dioxide 28 mmol/L (20-31); Chloride 102 mmol/L (98-107); Eosinophils # (auto) 0.8 10 ^3/uL (0-0.8); Glucose 146 mg/dL (74-106); Magnesium 2.3 mg/dL (1.6-2.6); Phosphorus 3.1 mg/dL (2.4-5.1); Potassium 3.6 mmol/L (3.5-5.1); Sodium 139 mmol/L (136-145); Total Protein 7.3 g/dL (5.7-8.2)
[2024-05-26 08:15] LABS: Alanine Aminotransferase < 9 U/L (7-40)
[2024-05-26 08:22] LABS: Basophils % (auto) 1.2 % (0.0-2.0); Eosinophils % (auto) 9.4 % (0.0-7.0); Hematocrit 34.8 % (36.0-46.0); Hemoglobin 11.6 g/dL (12.2-16.2); Lymphocytes # (auto) 1.2 10 ^3/uL (0.4-5.4); Lymphocytes % (auto) 14.9 % (10.0-50.0); Mean Corpuscular Hemoglobin 30.2 pg (28.0-32.0); Mean Corpuscular Hgb Conc. 33.4 g/dL (32.0-36.0); Mean Corpuscular Volume 90.3 fL (80.0-100.0); Monocytes % (auto) 11.5 % (0.0-12.0); Neutrophils # (auto) 5.3 10 ^3/uL (1.6-8.6); Nucleated Red Blood Cells % 0.2 %; Platelet Count (auto) 597 10^3/uL (140-450); Red Blood Cells 3.85 10^6/uL (4.0-5.20); Red Cell Distribution Width 15.7 % (11.8-14.3); White Blood Cell 8.4 10^3/uL (4.4-10.8)
--- NOTE | 2024-05-26 13:09 | DVH ---
Exam: CT CT AB PEL WO CON-NO ORAL OR IV History: abscess Comparison Study: CT CT ABD PELVIS W CON-ORAL IV on DOS: 05/23/24, CT CT AB PEL WO CON-NO ORAL OR IV on DOS: 05/18/24, CT CT AB PEL WO CON-NO ORAL OR IV on DOS: 05/14/24, CT CT AB PEL WITH IV CON ONLY on DOS: 05/11/24, CT CT AB PEL WO CON-NO ORAL OR IV on DOS: 05/09/24 Technique: Multidetector spiral CT of the abdomen was performed from lung bases to pubic symphysis. Imaging was performed without IV contrast. Axial, coronal and sagittal multiplanar reformats were ob tained from the axial data set by the technologist. Radiation Dose : 1. Abdomen/Pelvis: CTDIvol 27 mGy, DLP 1303.26 mGy*cm. Findings: Evaluation of solid organs is limited due to lack of intravenous contrast use. Lung Bases: No acute or significant lung base finding. Normal heart size. No pleural or pericardial effusion. Liver: The liver is normal in size. No focal lesions. Gallbladder and Biliary Tree: Cholelithiasis noted without secondary findings of cholecystitis or lizz iary obstruction. Spleen: Unremarkable Pancreas: The pancreas is grossly normal in appearance. Adrenal Glands: Unremarkable Kidneys: Kidneys are grossly normal without calculi or hydronephrosis. Bladder: Grossly unremarkable for degree of distention. Bowel: The stomach is grossly normal in appearance. Improved sigmoid diverticulitis. The appendix is not visualized; however, no secondary findings of acute appendicitis identified. Drainage catheter is seen in the lower midline abdomen with tip curled in a small air/ fluid filled c ollection measuring approximately 3.9 x 3.0 cm Ascites: Absent Lymphadenopathy: No mesenteric, retroperitoneal or periportal lymphadenopathy. Abdominal Wall and Mesentery: Unremarkable. Vasculature: The visualized abdominal aorta is normal in size and caliber. Evaluation of abdominal a nd pelvic vessels is limited due to lack of intravenous contrast. Pelvic Organs: Unremarkable Musculoskeletal: No aggressive focal bony lesions, acute fractures or dislocation. IMPRESSION: 1. Improving sigmoid diverticulitis 2. Drainage catheter is seen in the lower midline abdomen with tip curled in a small air/ fluid fille d collection measuring up to 3.9 cm (previously measuring up to 7.6 cm on May 23, 2024). Radiation optimization: All CT scans at this facility use at least one of these dose optimization sal[place] hniques: automated exposure control mA and/or kV adjustment per patient size (includes targeted exam s where dose is matched to clinical indication) or iterative reconstruction.
--- NOTE | 2024-05-26 13:33 | DVHPN2 ---
Progress Note - Dictate Date Seen: May 26, 2024 Medical Necessity Reason Pt with a Central, PICC or Fol: Yes Subjective E: no major events o/n. covering for Dr. Dumont for today. no complaints. vital signs Vital Sign Date Time Temp Pulse Resp B/P (MAP) Pulse Ox O2 Delivery O2 Flow Rate FiO2 05/26/24 12:53 125/69 05/26/24 12:30 97.9 76 18 95 97.9 05/26/24 08:00 Room Air* 0 21 Total Intake and Output 05/25/24 05/25/24 05/26/24 15:00 23:00 07:00 Intake Total 200 ml 2025 ml 300 ml Output Total 0 ml Balance 200 ml 2025 ml 300 ml medications Current Medications Medications Dose Ordered Sig/Lanette Route Start Time Stop Time Status Last Admin Dose Admin Atenolol 25 mg BID PO 05/10/24 10:00 Hold 05/10/24 21:38 25 MG Levothyroxine Sodium 125 mcg QAM@0600 PO 05/10/24 06:00 05/26/24 05:35 125 MCG Atorvastatin Calcium 40 mg HS PO 05/10/24 22:00 05/25/24 22:39 40 MG Ondansetron HCl 4 mg Q4HP PRN IV 05/09/24 23:00 Hold Acetaminophen 650 mg Q6HP PRN PO 05/09/24 23:00 05/23/24 15:13 650 MG Nitroglycerin 0.4 mg Q5MINP PRN SL 05/09/24 23:00 Enoxaparin Sodium 130 mg Q12HR SC 05/10/24 10:00 UNV Pantoprazole Sodium 40 mg DAILY IV 05/11/24 10:00 05/26/24 09:21 40 MG Baclofen 5 mg Q8HP PRN PO 05/12/24 19:15 Nifedipine 10 mg Q6HR PO 05/13/24 18:00 05/26/24 12:53 10 MG Metoprolol Succinate 25 mg TID PO 05/13/24 14:00 05/26/24 05:33 25 MG Lisinopril 40 mg DAILY PO 05/14/24 10:00 05/26/24 09:23 40 MG Amiodarone HCl 200 mg Q12HR PO 05/15/24 10:00 05/26/24 09:22 200 MG Amino Acids 0 ml @ 0 mls/hr PER PHARMACY IV 05/18/24 14:15 Diagnostic Test (Pha) 1 strip Q6HR 05/19/24 00:00 05/26/24 12:49 1 STRIP Insulin Human Regular FOLLOW SLIDING SCALE Q6HR SC 05/19/24 00:00 05/26/24 12:56 2 UNITS Dextrose 50 ml UD IV 05/19/24 00:00 Sodium Chloride 10 ml QSHIFT@10,22 IV 05/18/24 22:00 05/26/24 09:21 10 ML Furosemide 40 mg BIDD IV 05/22/24 18:00 05/26/24 05:32 40 MG Piperacillin Sod/ Tazobactam Sod 100 ml @ 25 mls/hr Q8H IV 05/23/24 20:00 05/26/24 12:49 25 MLS/HR Vancomycin HCl 0 ml @ 0 mls/hr UD IV 05/23/24 20:45 Micafungin Sodium 100 mg/Sodium Chloride 100 ml @ 100 mls/hr DAILY IV 05/24/24 10:00 05/26/24 09:22 100 MLS/HR Hydralazine HCl 5 mg Q4HP PRN IV 05/24/24 12:00 05/24/24 13:46 5 MG Fat Emulsion Intravenous 150 ml/Sodium Chloride 40 meq/ Sodium Phosphate 20 meq/Potassium Chloride 40 meq/ Potassium Phosphate 22 meq/ Magnesium Sulfate 20 meq/ Multivitamins 10 ml/Chromium/ Copper/Manganese/ Zinc 1 ml/Amino Acids/Dextrose 1,306 ml @ 54 mls/hr [id number] IV 05/25/24 22:00 05/26/24 21:59 05/25/24 22:54 54 MLS/HR Hydromorphone HCl 0.2 mg Q3HPRN PRN IV 05/25/24 13:45 05/26/24 09:58 0.2 MG Hydromorphone HCl 0.4 mg Q3HR PRN IV 05/25/24 13:45 Vancomycin HCl 200 ml @ 200 mls/hr Q10H IV 05/26/24 00:00 05/26/24 09:22 200 MLS/HR Fat Emulsion Intravenous 150 ml/Sodium Chloride 40 meq/ Sodium Acetate 20 meq/Potassium Chloride 40 meq/ Potassium Phosphate 44 meq/ Magnesium Sulfate 16 meq/ Multivitamins 10 ml/Chromium/ Copper/Manganese/ Zinc 1 ml/Amino Acids/Dextrose 1,315 ml @ 55 mls/hr [id number] IV 05/26/24 22:00 05/27/24 19:59 objective GEN: NAD ABD: soft. drain intact with purulent drainage. CT ABD/PELVIS: pigtail catheter in abscess that is decreased in size. laboratory and microbiology Laboratory Tests 05/26/24 07:37 Test 05/26/24 07:37 Range/Units Serum Glucose 146 H 74-106 mg/dL Assessment/Plan A: 1. perforated diverticulitis s/p percutaneous drainage. P: 1. cont curr tx. 2. recommend outpt colonoscopy. Dietary Evaluation Review Comments: 1) Advance pt diet when medically feasible to a [id number]/2gNa diet 2) Continue current plan of care Expected Outcomes/Goals: F/U in 3-5 days Plan discussed with: Patient, Spouse NARESH LEWIS MD May 26, 2024 13:33
--- NOTE | 2024-05-26 13:37 | DVHPN2 ---
Progress Note Date Seen: May 26, 2024 Medical Necessity Reason Pt with a Central, PICC or Fol: Yes Objective vital signs Vital Sign Date Time Temp Pulse Resp B/P (MAP) Pulse Ox O2 Delivery O2 Flow Rate FiO2 05/26/24 12:53 125/69 05/26/24 12:30 97.9 76 18 95 97.9 05/26/24 08:00 Room Air* 0 21 Total Intake and Output 05/25/24 05/25/24 05/26/24 15:00 23:00 07:00 Intake Total 200 ml 2025 ml 300 ml Output Total 0 ml Balance 200 ml 2025 ml 300 ml medications Current Medications Medications Dose Ordered Sig/Lanette Route Start Time Stop Time Status Last Admin Dose Admin Atenolol 25 mg BID PO 05/10/24 10:00 Hold 05/10/24 21:38 25 MG Levothyroxine Sodium 125 mcg QAM@0600 PO 05/10/24 06:00 05/26/24 05:35 125 MCG Atorvastatin Calcium 40 mg HS PO 05/10/24 22:00 05/25/24 22:39 40 MG Ondansetron HCl 4 mg Q4HP PRN IV 05/09/24 23:00 Hold Acetaminophen 650 mg Q6HP PRN PO 05/09/24 23:00 05/23/24 15:13 650 MG Nitroglycerin 0.4 mg Q5MINP PRN SL 05/09/24 23:00 Enoxaparin Sodium 130 mg Q12HR SC 05/10/24 10:00 UNV Pantoprazole Sodium 40 mg DAILY IV 05/11/24 10:00 05/26/24 09:21 40 MG Baclofen 5 mg Q8HP PRN PO 05/12/24 19:15 Nifedipine 10 mg Q6HR PO 05/13/24 18:00 05/26/24 12:53 10 MG Metoprolol Succinate 25 mg TID PO 05/13/24 14:00 05/26/24 05:33 25 MG Lisinopril 40 mg DAILY PO 05/14/24 10:00 05/26/24 09:23 40 MG Amiodarone HCl 200 mg Q12HR PO 05/15/24 10:00 05/26/24 09:22 200 MG Amino Acids 0 ml @ 0 mls/hr PER PHARMACY IV 05/18/24 14:15 Diagnostic Test (Pha) 1 strip Q6HR 05/19/24 00:00 05/26/24 12:49 1 STRIP Insulin Human Regular FOLLOW SLIDING SCALE Q6HR SC 05/19/24 00:00 05/26/24 12:56 2 UNITS Dextrose 50 ml UD IV 05/19/24 00:00 Sodium Chloride 10 ml QSHIFT@10,22 IV 05/18/24 22:00 05/26/24 09:21 10 ML Furosemide 40 mg BIDD IV 05/22/24 18:00 05/26/24 05:32 40 MG Piperacillin Sod/ Tazobactam Sod 100 ml @ 25 mls/hr Q8H IV 05/23/24 20:00 05/26/24 12:49 25 MLS/HR Vancomycin HCl 0 ml @ 0 mls/hr UD IV 05/23/24 20:45 Micafungin Sodium 100 mg/Sodium Chloride 100 ml @ 100 mls/hr DAILY IV 05/24/24 10:00 05/26/24 09:22 100 MLS/HR Hydralazine HCl 5 mg Q4HP PRN IV 05/24/24 12:00 05/24/24 13:46 5 MG Fat Emulsion Intravenous 150 ml/Sodium Chloride 40 meq/ Sodium Phosphate 20 meq/Potassium Chloride 40 meq/ Potassium Phosphate 22 meq/ Magnesium Sulfate 20 meq/ Multivitamins 10 ml/Chromium/ Copper/Manganese/ Zinc 1 ml/Amino Acids/Dextrose 1,306 ml @ 54 mls/hr [id number] IV 05/25/24 22:00 05/26/24 21:59 05/25/24 22:54 54 MLS/HR Hydromorphone HCl 0.2 mg Q3HPRN PRN IV 05/25/24 13:45 05/26/24 09:58 0.2 MG Hydromorphone HCl 0.4 mg Q3HR PRN IV 05/25/24 13:45 Vancomycin HCl 200 ml @ 200 mls/hr Q10H IV 05/26/24 00:00 05/26/24 09:22 200 MLS/HR Fat Emulsion Intravenous 150 ml/Sodium Chloride 40 meq/ Sodium Acetate 20 meq/Potassium Chloride 40 meq/ Potassium Phosphate 44 meq/ Magnesium Sulfate 16 meq/ Multivitamins 10 ml/Chromium/ Copper/Manganese/ Zinc 1 ml/Amino Acids/Dextrose 1,315 ml @ 55 mls/hr [id number] IV 05/26/24 22:00 05/27/24 19:59 laboratory and microbiology Laboratory Tests 05/26/24 07:37 Test 05/26/24 07:37 Range/Units Serum Glucose 146 H 74-106 mg/dL Microbiology Date/Time Source Procedure Growth Status 05/15/24 13:15 Aspirate Gram Stain - Final Complete 05/15/24 13:15 Body Fluid Culture - Final Escherichia coli Proteus mirabilis Enterococcus faecium Yeast, not Nilsa albicans Complete 05/09/24 21:14 Voided Urine Urine Culture - Final Complete Problem List/Assessment/Plan Problem List/Assessment/Plan AFEBRILE VSS ABD SOFT TENDER NO REBOUND FLATUS + WBC WNL REPEAT REPLACEMENT OF IR DRAINAGE OF INTRAABD ABSCESS DONE AND EVAL ONGOING REPEAT CT SCAN RESOLVING INTRAABD ABSCESS DRAINAGE NOTED IN DRAINAGE BAG BUT LESS CONTINUE CLOSE OBSERVATION IV ABX NURSE AND FAMILY AT BEDSIDE REPEAT LABS AM DR LEWIS COVERING INFORMED AND UPDATED WILL SIGN OFF FAMILY AND NURSE AWARE Plan discussed with: Patient Dietary Evaluation Review Comments: 1) Advance pt diet when medically feasible to a [id number]/[id number] diet 2) Continue current plan of care Expected Outcomes/Goals: F/U in 3-5 days CATALINO DEMPSEY MD May 26, 2024 13:37
--- NOTE | 2024-05-26 17:43 | DVHPN2 ---
Progress Note - Dictate Date Seen: May 26, 2024 Medical Necessity Reason Pt with a Central, PICC or Fol: Yes Subjective Patient was seen and evaluated in follow up. Patient is c/o abdominal discomfort. Occult blood stool is negative. vital signs Vital Sign Date Time Temp Pulse Resp B/P (MAP) Pulse Ox O2 Delivery O2 Flow Rate FiO2 05/26/24 09:58 80 19 130/68 05/26/24 09:00 98.1 94 98.1 05/25/24 20:00 Room Air* 0 21 Total Intake and Output 05/25/24 05/25/24 05/26/24 15:00 23:00 07:00 Intake Total 200 ml 2025 ml 300 ml Output Total 0 ml Balance 200 ml 2025 ml 300 ml medications Current Medications Medications Dose Ordered Sig/Lanette Route Start Time Stop Time Status Last Admin Dose Admin Atenolol 25 mg BID PO 05/10/24 10:00 Hold 05/10/24 21:38 25 MG Levothyroxine Sodium 125 mcg QAM@0600 PO 05/10/24 06:00 05/26/24 05:35 125 MCG Atorvastatin Calcium 40 mg HS PO 05/10/24 22:00 05/25/24 22:39 40 MG Ondansetron HCl 4 mg Q4HP PRN IV 05/09/24 23:00 Hold Acetaminophen 650 mg Q6HP PRN PO 05/09/24 23:00 05/23/24 15:13 650 MG Nitroglycerin 0.4 mg Q5MINP PRN SL 05/09/24 23:00 Enoxaparin Sodium 130 mg Q12HR SC 05/10/24 10:00 UNV Pantoprazole Sodium 40 mg DAILY IV 05/11/24 10:00 05/26/24 09:21 40 MG Baclofen 5 mg Q8HP PRN PO 05/12/24 19:15 Nifedipine 10 mg Q6HR PO 05/13/24 18:00 05/26/24 05:34 10 MG Metoprolol Succinate 25 mg TID PO 05/13/24 14:00 05/26/24 05:33 25 MG Lisinopril 40 mg DAILY PO 05/14/24 10:00 05/26/24 09:23 40 MG Amiodarone HCl 200 mg Q12HR PO 05/15/24 10:00 05/26/24 09:22 200 MG Amino Acids 0 ml @ 0 mls/hr PER PHARMACY IV 05/18/24 14:15 Diagnostic Test (Pha) 1 strip Q6HR 05/19/24 00:00 05/26/24 05:49 1 STRIP Insulin Human Regular FOLLOW SLIDING SCALE Q6HR SC 05/19/24 00:00 05/26/24 05:48 2 UNITS Dextrose 50 ml UD IV 05/19/24 00:00 Sodium Chloride 10 ml QSHIFT@10,22 IV 05/18/24 22:00 05/26/24 09:21 10 ML Furosemide 40 mg BIDD IV 05/22/24 18:00 05/26/24 05:32 40 MG Piperacillin Sod/ Tazobactam Sod 100 ml @ 25 mls/hr Q8H IV 05/23/24 20:00 05/26/24 04:20 25 MLS/HR Vancomycin HCl 0 ml @ 0 mls/hr UD IV 05/23/24 20:45 Micafungin Sodium 100 mg/Sodium Chloride 100 ml @ 100 mls/hr DAILY IV 05/24/24 10:00 05/26/24 09:22 100 MLS/HR Hydralazine HCl 5 mg Q4HP PRN IV 05/24/24 12:00 05/24/24 13:46 5 MG Fat Emulsion Intravenous 150 ml/Sodium Chloride 40 meq/ Sodium Phosphate 20 meq/Potassium Chloride 40 meq/ Potassium Phosphate 22 meq/ Magnesium Sulfate 20 meq/ Multivitamins 10 ml/Chromium/ Copper/Manganese/ Zinc 1 ml/Amino Acids/Dextrose 1,306 ml @ 54 mls/hr [id number] IV 05/25/24 22:00 05/26/24 21:59 05/25/24 22:54 54 MLS/HR Hydromorphone HCl 0.2 mg Q3HPRN PRN IV 05/25/24 13:45 05/26/24 09:58 0.2 MG Hydromorphone HCl 0.4 mg Q3HR PRN IV 05/25/24 13:45 Vancomycin HCl 200 ml @ 200 mls/hr Q10H IV 05/26/24 00:00 05/26/24 09:22 200 MLS/HR objective GENERAL: Awake, alert, oriented. Morbidly obese. LUNGS: Clear. CARDIOVASCULAR: Tachycardic. ABDOMEN: Soft, tender in the left lower quadrant, nondistended, bowel sounds present all 4 quadrants, no guarding. laboratory and microbiology Laboratory Tests 05/26/24 07:37 Test 05/26/24 07:37 Range/Units Serum Glucose 146 H 74-106 mg/dL Problem List Atrial fibrillation with rapid ventricular response. Acute diverticulitis with microperforation. Morbid obesity. Profound leukocytosis. Acute abdominal pain. Elevated troponin. Hypokalemia. UTI. Morbid obesity. Diarrhea. Hypertension. Hypothyroidism. Assessment/Plan Continued all current supportive medical care. Morphine and [place] for pain management. Amiodarone. Lipitor, Metoprolol. IV antibiotics as ordered. GI prophylactics. Lisinopril, Nifedipine. Additional plan as per the hospital course. Dietary Evaluation Review Comments: 1) Advance pt diet when medically feasible to a [id number]/2gNa diet 2) Continue current plan of care Expected Outcomes/Goals: F/U in 3-5 days Plan discussed with: Patient TRESA MCFARLANE MD May 26, 2024 11:11
--- NOTE | 2024-05-26 20:04 | DVHPN2 ---
Progress Note - Dictate Date Seen: May 26, 2024 Medical Necessity Reason Pt with a Central, PICC or Fol: Yes Subjective Patient was seen and evaluated in follow up. No acute events overnight. Patient complains of mild abdominal pain. WBC is wnl. Follow up CT Abdomen Pelvis reported improving sigmoid diverticulitis; drainage catheter is seen in the lower midline abdomen with tip curled in a small air/ fluid filled collection measuring up to 3.9 cm (previously measuring up to 7.6 cm on May 23, 2024). vital signs Vital Sign Date Time Temp Pulse Resp B/P (MAP) Pulse Ox O2 Delivery O2 Flow Rate FiO2 05/26/24 17:33 143/60 05/26/24 17:00 97.7 76 20 96 97.7 05/26/24 08:00 Room Air* 0 21 Total Intake and Output 05/25/24 05/25/24 05/26/24 15:00 23:00 07:00 Intake Total 200 ml 2025 ml 300 ml Output Total 0 ml Balance 200 ml 2025 ml 300 ml medications Current Medications Medications Dose Ordered Sig/Lanette Route Start Time Stop Time Status Last Admin Dose Admin Atenolol 25 mg BID PO 05/10/24 10:00 Hold 05/10/24 21:38 25 MG Levothyroxine Sodium 125 mcg QAM@0600 PO 05/10/24 06:00 05/26/24 05:35 125 MCG Atorvastatin Calcium 40 mg HS PO 05/10/24 22:00 05/25/24 22:39 40 MG Ondansetron HCl 4 mg Q4HP PRN IV 05/09/24 23:00 Hold Acetaminophen 650 mg Q6HP PRN PO 05/09/24 23:00 05/23/24 15:13 650 MG Nitroglycerin 0.4 mg Q5MINP PRN SL 05/09/24 23:00 Enoxaparin Sodium 130 mg Q12HR SC 05/10/24 10:00 UNV Pantoprazole Sodium 40 mg DAILY IV 05/11/24 10:00 05/26/24 09:21 40 MG Baclofen 5 mg Q8HP PRN PO 05/12/24 19:15 Nifedipine 10 mg Q6HR PO 05/13/24 18:00 05/26/24 17:33 10 MG Metoprolol Succinate 25 mg TID PO 05/13/24 14:00 05/26/24 14:43 25 MG Lisinopril 40 mg DAILY PO 05/14/24 10:00 05/26/24 09:23 40 MG Amiodarone HCl 200 mg Q12HR PO 05/15/24 10:00 05/26/24 09:22 200 MG Amino Acids 0 ml @ 0 mls/hr PER PHARMACY IV 05/18/24 14:15 Diagnostic Test (Pha) 1 strip Q6HR 05/19/24 00:00 05/26/24 17:33 1 STRIP Insulin Human Regular FOLLOW SLIDING SCALE Q6HR SC 05/19/24 00:00 05/26/24 17:35 2 UNITS Dextrose 50 ml UD IV 05/19/24 00:00 Sodium Chloride 10 ml QSHIFT@10,22 IV 05/18/24 22:00 05/26/24 09:21 10 ML Piperacillin Sod/ Tazobactam Sod 100 ml @ 25 mls/hr Q8H IV 05/23/24 20:00 05/26/24 12:49 25 MLS/HR Vancomycin HCl 0 ml @ 0 mls/hr UD IV 05/23/24 20:45 Micafungin Sodium 100 mg/Sodium Chloride 100 ml @ 100 mls/hr DAILY IV 05/24/24 10:00 05/26/24 09:22 100 MLS/HR Hydralazine HCl 5 mg Q4HP PRN IV 05/24/24 12:00 05/24/24 13:46 5 MG Fat Emulsion Intravenous 150 ml/Sodium Chloride 40 meq/ Sodium Phosphate 20 meq/Potassium Chloride 40 meq/ Potassium Phosphate 22 meq/ Magnesium Sulfate 20 meq/ Multivitamins 10 ml/Chromium/ Copper/Manganese/ Zinc 1 ml/Amino Acids/Dextrose 1,306 ml @ 54 mls/hr [id number] IV 05/25/24 22:00 05/26/24 21:59 05/25/24 22:54 54 MLS/HR Hydromorphone HCl 0.2 mg Q3HPRN PRN IV 05/25/24 13:45 05/26/24 14:43 0.2 MG Hydromorphone HCl 0.4 mg Q3HR PRN IV 05/25/24 13:45 Vancomycin HCl 200 ml @ 200 mls/hr Q10H IV 05/26/24 00:00 05/26/24 19:50 200 MLS/HR Fat Emulsion Intravenous 150 ml/Sodium Chloride 40 meq/ Sodium Acetate 20 meq/Potassium Chloride 40 meq/ Potassium Phosphate 44 meq/ Magnesium Sulfate 16 meq/ Multivitamins 10 ml/Chromium/ Copper/Manganese/ Zinc 1 ml/Amino Acids/Dextrose 1,315 ml @ 55 mls/hr [id number] IV 05/26/24 22:00 05/27/24 19:59 Furosemide 40 mg DAILY IV 05/27/24 06:00 objective Physical exam: Vitals and nursing notes reviewed. General: In no acute distress, morbidly obese. HEENT: Normocephalic atraumatic, mucous membranes moist and pink. Neck: Cervical and supraclavicular nodes normal without enlargement. Pulmonary: Clear to auscultation and percussion bilaterally. Cardiac: RRR. No murmur. Abdomen: Soft, tender, nondistended, bowel sounds present all 4 quadrants, no guarding. Musculoskeletal: No deformity. Neuro: Cranial nerves II through XII grossly intact, normal affect and speech, no focal motor deficits. Skin: Warm, dry, normal color and texture, no rash. laboratory and microbiology Laboratory Tests 05/26/24 07:37 Test 05/26/24 07:37 Range/Units Serum Glucose 146 H 74-106 mg/dL Problem List Acute diverticulitis Acute abdominal pain Elevated troponin Hypokalemia UTI Morbid obesity Assessment/Plan Continue all current supportive medical care. Surgery, GI and Cardiology consults. S/p CT-guided drainage of abscess with IR 05/15. Replacement of pigtail 05/24. IV Vancomycin, Zosyn and Micafungin. Patient will likely need one month of IV Abx per surgery. Remains NPO. Nutritional support with TPN per pharmacy. Lasix decreased to 40 mg IV daily. Protonix 40 mg IV daily. Enoxaparin 130 mg SC q12h. Pain management prn. Additional plan as per the hospital course. Dietary Evaluation Review Comments: 1) Advance pt diet when medically feasible to a [id number]/2gNa diet 2) Continue current plan of care Expected Outcomes/Goals: F/U in 3-5 days Plan discussed with: Patient, Other (SUJATA Voss ) SMITHA MCFARLANE DO May 26, 2024 20:04
--- NOTE | 2024-05-26 22:12 | DVHPN2 ---
Progress Note - Dictate Date Seen: May 26, 2024 Medical Necessity Reason Pt with a Central, PICC or Fol: Yes Subjective No new complaints; stool for occult blood negative Patient underwent repeat CT with pigtail reinsertion into the collection yesterday; pigtail catheter was draining other 100 mL pus Today the drainage bag appears to be filled with air possibly related to back malfunction in the bile was being changed to a drainable by Pus fluid culture showing multiple organisms : Ecoli, Proteus Mirabilis; Enterocoocum faecalis; Yeast vital signs Vital Sign Date Time Temp Pulse Resp B/P (MAP) Pulse Ox O2 Delivery O2 Flow Rate FiO2 05/26/24 21:00 98.4 93 18 160/68 (98) 78 98.4 05/26/24 08:00 Room Air* 0 21 Total Intake and Output 05/25/24 05/25/24 05/26/24 15:00 23:00 07:00 Intake Total 200 ml 2025 ml 300 ml Output Total 0 ml Balance 200 ml 2025 ml 300 ml medications Current Medications Medications Dose Ordered Sig/Lanette Route Start Time Stop Time Status Last Admin Dose Admin Atenolol 25 mg BID PO 05/10/24 10:00 Hold 05/10/24 21:38 25 MG Levothyroxine Sodium 125 mcg QAM@0600 PO 05/10/24 06:00 05/26/24 05:35 125 MCG Atorvastatin Calcium 40 mg HS PO 05/10/24 22:00 05/25/24 22:39 40 MG Ondansetron HCl 4 mg Q4HP PRN IV 05/09/24 23:00 Hold Acetaminophen 650 mg Q6HP PRN PO 05/09/24 23:00 05/23/24 15:13 650 MG Nitroglycerin 0.4 mg Q5MINP PRN SL 05/09/24 23:00 Enoxaparin Sodium 130 mg Q12HR SC 05/10/24 10:00 UNV Pantoprazole Sodium 40 mg DAILY IV 05/11/24 10:00 05/26/24 09:21 40 MG Baclofen 5 mg Q8HP PRN PO 05/12/24 19:15 Nifedipine 10 mg Q6HR PO 05/13/24 18:00 05/26/24 17:33 10 MG Metoprolol Succinate 25 mg TID PO 05/13/24 14:00 05/26/24 14:43 25 MG Lisinopril 40 mg DAILY PO 05/14/24 10:00 05/26/24 09:23 40 MG Amiodarone HCl 200 mg Q12HR PO 05/15/24 10:00 05/26/24 09:22 200 MG Amino Acids 0 ml @ 0 mls/hr PER PHARMACY IV 05/18/24 14:15 Diagnostic Test (Pha) 1 strip Q6HR 05/19/24 00:00 05/26/24 17:33 1 STRIP Insulin Human Regular FOLLOW SLIDING SCALE Q6HR SC 05/19/24 00:00 05/26/24 17:35 2 UNITS Dextrose 50 ml UD IV 05/19/24 00:00 Sodium Chloride 10 ml QSHIFT@10,22 IV 05/18/24 22:00 05/26/24 09:21 10 ML Piperacillin Sod/ Tazobactam Sod 100 ml @ 25 mls/hr Q8H IV 05/23/24 20:00 05/26/24 12:49 25 MLS/HR Vancomycin HCl 0 ml @ 0 mls/hr UD IV 05/23/24 20:45 Micafungin Sodium 100 mg/Sodium Chloride 100 ml @ 100 mls/hr DAILY IV 05/24/24 10:00 05/26/24 09:22 100 MLS/HR Hydralazine HCl 5 mg Q4HP PRN IV 05/24/24 12:00 05/24/24 13:46 5 MG Hydromorphone HCl 0.2 mg Q3HPRN PRN IV 05/25/24 13:45 05/26/24 14:43 0.2 MG Hydromorphone HCl 0.4 mg Q3HR PRN IV 05/25/24 13:45 Vancomycin HCl 200 ml @ 200 mls/hr Q10H IV 05/26/24 00:00 05/26/24 19:50 200 MLS/HR Fat Emulsion Intravenous 150 ml/Sodium Chloride 40 meq/ Sodium Acetate 20 meq/Potassium Chloride 40 meq/ Potassium Phosphate 44 meq/ Magnesium Sulfate 16 meq/ Multivitamins 10 ml/Chromium/ Copper/Manganese/ Zinc 1 ml/Amino Acids/Dextrose 1,315 ml @ 55 mls/hr [id number] IV 05/26/24 22:00 05/27/24 19:59 Furosemide 40 mg DAILY IV 05/27/24 06:00 objective General examination- No acute distress , was able to ambulate to bathroom;morbidly obese female HEENT- PEERLA, EOMI intact Heart S1-S2 audible, rate and rhythm regular, no murmur Lungs- CTAB, no wheeze or rhonchi Abdomen- distended, lower abdominal tenderness, bowel sound+ Musculoskeletal-no acute joint swelling or tenderness or redness Lower extremity- no leg edema, but pain in the left lateral thigh Neurological- cranial nerves intact, no acute dysarthria or dysphagia Skin- no acute rash or purpura laboratory and microbiology Laboratory Tests 05/26/24 07:37 Test 05/26/24 07:37 Range/Units Serum Glucose 146 H 74-106 mg/dL CT SCAN ABD PELVIS Repeat today IMPRESSION: 1. Improving sigmoid diverticulitis 2. Drainage catheter is seen in the lower midline abdomen with tip curled in a small air/ fluid filled collection measuring up to 3.9 cm (previously measuring up to 7.6 cm on May 23, 2024). Problems(with codes): (1) Diverticulitis of intestine with perforation and abscess (2) Elevated brain natriuretic peptide (BNP) level (3) Non-STEMI (non-ST elevated myocardial infarction) (4) Elevated LFTs (5) Diverticulitis (6) Urinary tract infection (7) Cholelithiasis (8) Hiatal hernia Prognosis PLAN REPEAT REPLACEMENT OF IR DRAINAGE OF INTRAABD ABSCESS DONE REPEAT CT SCAN RESOLVING INTRAABD ABSCESS DRAINAGE NOTED IN DRAINAGE BAG BUT LESS CONTINUE CLOSE OBSERVATION IV ABX NURSE AND FAMILY AT BEDSIDE CONTINUE SUPPORTIVE CAREOUTPT ELECTIVE COLONOSCOPY Dietary Evaluation Review Comments: 1) Advance pt diet when medically feasible to a [id number]/[id number] diet 2) Continue current plan of care Expected Outcomes/Goals: F/U in 3-5 days Plan discussed with: Patient, Other (Nurse) MITCHELL DEMPSEY MD May 26, 2024 22:12
--- NOTE | 2024-05-26 22:24 | DVHPN2 ---
Consult Progress Note Date Seen: May 26, 2024 Subjective Patient reports: Feels better (having bowel movements and on TPN , pigtail catheter was outputting air which was a concern in the ct of abdomen ) Objective vital signs Vital Sign Date Time Temp Pulse Resp B/P (MAP) Pulse Ox O2 Delivery O2 Flow Rate FiO2 05/26/24 21:00 98.4 93 18 160/68 (98) 78 98.4 05/26/24 08:00 Room Air* 0 21 Total Intake and Output 05/25/24 05/25/24 05/26/24 15:00 23:00 07:00 Intake Total 200 ml 2025 ml 300 ml Output Total 0 ml Balance 200 ml 2025 ml 300 ml medications Current Medications Medications Dose Ordered Sig/Lanette Route Start Time Stop Time Status Last Admin Dose Admin Atenolol 25 mg BID PO 05/10/24 10:00 Hold 05/10/24 21:38 25 MG Levothyroxine Sodium 125 mcg QAM@0600 PO 05/10/24 06:00 05/26/24 05:35 125 MCG Atorvastatin Calcium 40 mg HS PO 05/10/24 22:00 05/25/24 22:39 40 MG Ondansetron HCl 4 mg Q4HP PRN IV 05/09/24 23:00 Hold Acetaminophen 650 mg Q6HP PRN PO 05/09/24 23:00 05/23/24 15:13 650 MG Nitroglycerin 0.4 mg Q5MINP PRN SL 05/09/24 23:00 Enoxaparin Sodium 130 mg Q12HR SC 05/10/24 10:00 UNV Pantoprazole Sodium 40 mg DAILY IV 05/11/24 10:00 05/26/24 09:21 40 MG Baclofen 5 mg Q8HP PRN PO 05/12/24 19:15 Nifedipine 10 mg Q6HR PO 05/13/24 18:00 05/26/24 17:33 10 MG Metoprolol Succinate 25 mg TID PO 05/13/24 14:00 05/26/24 14:43 25 MG Lisinopril 40 mg DAILY PO 05/14/24 10:00 05/26/24 09:23 40 MG Amiodarone HCl 200 mg Q12HR PO 05/15/24 10:00 05/26/24 09:22 200 MG Amino Acids 0 ml @ 0 mls/hr PER PHARMACY IV 05/18/24 14:15 Diagnostic Test (Pha) 1 strip Q6HR 05/19/24 00:00 05/26/24 17:33 1 STRIP Insulin Human Regular FOLLOW SLIDING SCALE Q6HR SC 05/19/24 00:00 05/26/24 17:35 2 UNITS Dextrose 50 ml UD IV 05/19/24 00:00 Sodium Chloride 10 ml QSHIFT@10,22 IV 05/18/24 22:00 05/26/24 09:21 10 ML Piperacillin Sod/ Tazobactam Sod 100 ml @ 25 mls/hr Q8H IV 05/23/24 20:00 05/26/24 12:49 25 MLS/HR Vancomycin HCl 0 ml @ 0 mls/hr UD IV 05/23/24 20:45 Micafungin Sodium 100 mg/Sodium Chloride 100 ml @ 100 mls/hr DAILY IV 05/24/24 10:00 05/26/24 09:22 100 MLS/HR Hydralazine HCl 5 mg Q4HP PRN IV 05/24/24 12:00 05/24/24 13:46 5 MG Hydromorphone HCl 0.2 mg Q3HPRN PRN IV 05/25/24 13:45 05/26/24 14:43 0.2 MG Hydromorphone HCl 0.4 mg Q3HR PRN IV 05/25/24 13:45 Vancomycin HCl 200 ml @ 200 mls/hr Q10H IV 05/26/24 00:00 05/26/24 19:50 200 MLS/HR Fat Emulsion Intravenous 150 ml/Sodium Chloride 40 meq/ Sodium Acetate 20 meq/Potassium Chloride 40 meq/ Potassium Phosphate 44 meq/ Magnesium Sulfate 16 meq/ Multivitamins 10 ml/Chromium/ Copper/Manganese/ Zinc 1 ml/Amino Acids/Dextrose 1,315 ml @ 55 mls/hr [id number] IV 05/26/24 22:00 05/27/24 19:59 Furosemide 40 mg DAILY IV 05/27/24 06:00 Physical Exam: General: NAD Neck: Supple. No masses. HEENT: PERRL. Normal lids and conjunctiva. Moist mucous membranes. Oropharynx without lesions, exudates, or excessive erythema. Normal appearance of the external aspects of the nose and ears. Heart: Regular rhythm, normal rate. No murmur. No lower extremity edema. Lungs: Normal respiratory effort. Clear to auscultation bilaterally. No wheezes. No crackles. Abdomen: Soft. slightly tender. Non-distended. No masses or abdominal hernia. Msk: No digital cyanosis. Normal strength and tone in all 4 limbs. Skin: Warm and dry, no rashes. Neuro: Alert. No facial droop or slurred speech. Extra-ocular movements intact. Sensation intact to soft touch in all 4 limbs. Psych: Appropriate mood. Full affect. Oriented to person, place, time, and situation. laboratory and microbiology Laboratory Tests 05/26/24 07:37 Test 05/26/24 07:37 Range/Units Serum Glucose 146 H 74-106 mg/dL Problem List/Assessment/Plan Problems(with codes): (1) Atrial fibrillation (2) Hiatal hernia (3) Cholelithiasis (4) Urinary tract infection (5) Diverticulitis (6) Non-STEMI (non-ST elevated myocardial infarction) (7) Elevated LFTs (8) Elevated brain natriuretic peptide (BNP) level (9) Diverticulitis of intestine with perforation and abscess Problem List/Assessment/Plan ID Problem List: - Acute diverticulitis - Diverticular abscess - Acute abdominal pain UTI - Elevated troponin - Hypokalemia - Morbid obesity - Diarrhea - Hypertension - Hypothyroidism Assessment: This is a 73 y.o. female with a past medical history of hypertension, hyperlipidemia, kidney transplant, hypothyroidism, morbid obesity, and end-stage renal disease who presents with lower abdominal pain on May 09. The pain was nonradiating and associated with nausea, diarrhea, and poor appetite. The patient visited [facility] urgent care on May 09 for unprovoked onset of persisting symptoms except with the exception of diarrhea for the past days. The patient reported experiencing urinary retention, constipation, and fever initially for 2 days, then it subsided on its own. CT abdomen revealed diverticulitis with air in the retroperitoneum, findings suggestive of abscess, cholestasis, and small hiatal hernia. Chest X-ray showed no acute findings, and HIDA scan showed nonvisualization of the gallbladder suggestive of cystic duct obstruction. Repeat CT abdomen on May 15 showed moderate fat stranding and induration of the central mesentery, with a 6.5 by 6.2 cm collection of air and minimal fluid suggestive of acute diverticulitis with rupture and associated abscess. The patient underwent IR drainage of the pelvic abscess on July 16. Culture revealed E. coli and Proteus mirabilis, both sensitive to ANCEF and Unison. The patient has been on ceftriaxone and Flagyl. 05/21: appears to require prolonged TPN needs , pharmacy is not providing ceftazidime. 05/22: patient has had over 135 ccs of drainage , likely sufficient for antibiotics to be appropriate monotherapy for treatment 05/23: white count has normalized, microbiology shows E Coli, proteus , enterococcus and yeast. the E Coli and proteus are sensitive to zosyn. Ct scan shos a persistent abscess in the central pelvis 7.76 by 6.6 . pictile cathedeter should be removed and a new one placed . does not appear that patient would have any drug contraindications to vancomycin or fluconazol and start by IV because patient is NPO 05/24: she had a Ct guided drainage adjustment and pic tail was placed on her abdomen on a different location , unlcear how much drainage was relieved from procedure. New piccline placed. White count continues to downtred 05/25:white count coming down , more output coming from the drain. 05/26: Ct abdomen and pelvis doen and shows improved sigmoid diverticulitis and the catheter is sen in the midline abdomen with fluid collection in 3.9 cm , better from last which was 7.[address] Dumont is recommending close observation and IV antibiotics , agree with plan Plan: - continue micafungen and vancomycin and zosyn - as more prevalent drainage continues to come out and surgery clears patient for oral diets, will transition patient to oral antibiotics , otherwise patient will need additional surgery based off drainage - Monitor drainage and consider additional IR drainage or surgical I&D if necessary - Discuss the need for extended IV antibiotic therapy, potentially 30 days with follow up CT abd pelvis afterwards Isolation Precautions: standard Assessment and plan were discussed with the patient as written above. Plan is subject to change pending incorporation of new incoming information/diagnostics. Updates may be added as an addendum at the bottom (OR TOP) of this note. Thank you for the interesting consult. ID will continue to follow. Please contact Infectious Disease for any questions or concerns. Quincy Wooten M.D. [facility] Plan discussed with: Other Dietary Evaluation Review Comments: 1) Advance pt diet when medically feasible to a OPRA96n/2gNa diet 2) Continue current plan of care Expected Outcomes/Goals: F/U in 3-5 days QUINCY WOOTEN MD May 26, 2024 22:24
[2024-05-26] MEDS: TPN PER PHARMACY IV NR (22:50)
[2024-05-27] VITALS (8 sets, daily range): BP systolic 125–145; BP diastolic 45–74; PULSE 70–85; RESP 17–20; TEMP 97.4–98.3; O2SAT 92–95
[2024-05-27 05:22] LABS: Alanine Aminotransferase 10 U/L (7-40); Alkaline Phosphatase 68 U/L (46-116); Anion Gap 8 (5-15); Aspartate Aminotransferase 11 U/L (13-40); BUN/Creatinine Ratio 25.3 (10.0-20.0); Blood Urea Nitrogen 22 mg/dL (9-23); Calcium 9.6 mg/dL (8.7-10.4); Carbon Dioxide 26 mmol/L (20-31); Chloride 104 mmol/L (98-107); Glucose 133 mg/dL (74-106); Magnesium 2.4 mg/dL (1.6-2.6); Phosphorus 3.5 mg/dL (2.4-5.1); Potassium 3.8 mmol/L (3.5-5.1); Sodium 138 mmol/L (136-145); Triglycerides 254 mg/dL (< 150)
[2024-05-27 05:23] LABS: Bilirubin, Total 0.4 mg/dL (0.2-1.0); Total Protein 6.9 g/dL (5.7-8.2)
[2024-05-27] MEDS ORDERED: FUROSEMIDE 40 MG/4 ML VIAL IV SCH (06:00)
--- NOTE | 2024-05-27 08:12 | DVHPN2 ---
Progress Note - Dictate Date Seen: May 27, 2024 Medical Necessity Reason Pt with a Central, PICC or Fol: Yes Subjective Patient is cheerful today ; less abdominal pain No further air leak in the drainage bag since it was changed There was only about 10 mL of pus output since the bag was strange changed vital signs Vital Sign Date Time Temp Pulse Resp B/P (MAP) Pulse Ox O2 Delivery O2 Flow Rate FiO2 05/27/24 05:47 139/55 05/27/24 05:46 78 05/27/24 05:00 97.5 18 95 97.5 05/26/24 20:00 Room Air* 0 21 Total Intake and Output 05/26/24 05/26/24 05/27/24 15:00 23:00 07:00 Intake Total 500 ml 200 ml 500 ml Balance 500 ml 200 ml 500 ml medications Current Medications Medications Dose Ordered Sig/Lanette Route Start Time Stop Time Status Last Admin Dose Admin Atenolol 25 mg BID PO 05/10/24 10:00 Hold 05/10/24 21:38 25 MG Levothyroxine Sodium 125 mcg QAM@0600 PO 05/10/24 06:00 05/27/24 05:45 125 MCG Atorvastatin Calcium 40 mg HS PO 05/10/24 22:00 05/26/24 22:20 40 MG Ondansetron HCl 4 mg Q4HP PRN IV 05/09/24 23:00 Hold Acetaminophen 650 mg Q6HP PRN PO 05/09/24 23:00 05/23/24 15:13 650 MG Nitroglycerin 0.4 mg Q5MINP PRN SL 05/09/24 23:00 Enoxaparin Sodium 130 mg Q12HR SC 05/10/24 10:00 UNV Pantoprazole Sodium 40 mg DAILY IV 05/11/24 10:00 05/26/24 09:21 40 MG Baclofen 5 mg Q8HP PRN PO 05/12/24 19:15 Nifedipine 10 mg Q6HR PO 05/13/24 18:00 05/27/24 05:47 10 MG Metoprolol Succinate 25 mg TID PO 05/13/24 14:00 05/27/24 05:46 25 MG Lisinopril 40 mg DAILY PO 05/14/24 10:00 05/26/24 09:23 40 MG Amiodarone HCl 200 mg Q12HR PO 05/15/24 10:00 05/26/24 22:19 200 MG Amino Acids 0 ml @ 0 mls/hr PER PHARMACY IV 05/18/24 14:15 Diagnostic Test (Pha) 1 strip Q6HR 05/19/24 00:00 05/27/24 06:09 1 STRIP Insulin Human Regular FOLLOW SLIDING SCALE Q6HR SC 05/19/24 00:00 05/27/24 06:10 2 UNITS Dextrose 50 ml UD IV 05/19/24 00:00 Sodium Chloride 10 ml QSHIFT@10,22 IV 05/18/24 22:00 05/26/24 22:47 10 ML Piperacillin Sod/ Tazobactam Sod 100 ml @ 25 mls/hr Q8H IV 05/23/24 20:00 05/27/24 05:45 25 MLS/HR Vancomycin HCl 0 ml @ 0 mls/hr UD IV 05/23/24 20:45 Micafungin Sodium 100 mg/Sodium Chloride 100 ml @ 100 mls/hr DAILY IV 05/24/24 10:00 05/26/24 09:22 100 MLS/HR Hydralazine HCl 5 mg Q4HP PRN IV 05/24/24 12:00 05/24/24 13:46 5 MG Hydromorphone HCl 0.2 mg Q3HPRN PRN IV 05/25/24 13:45 05/26/24 22:37 0.2 MG Hydromorphone HCl 0.4 mg Q3HR PRN IV 05/25/24 13:45 Vancomycin HCl 200 ml @ 200 mls/hr Q10H IV 05/26/24 00:00 05/27/24 05:47 200 MLS/HR Fat Emulsion Intravenous 150 ml/Sodium Chloride 40 meq/ Sodium Acetate 20 meq/Potassium Chloride 40 meq/ Potassium Phosphate 44 meq/ Magnesium Sulfate 16 meq/ Multivitamins 10 ml/Chromium/ Copper/Manganese/ Zinc 1 ml/Amino Acids/Dextrose 1,315 ml @ 55 mls/hr [id number] IV 05/26/24 22:00 05/27/24 19:59 05/26/24 22:50 55 MLS/HR Furosemide 40 mg DAILY IV 05/27/24 10:00 objective General examination- No acute distress , was able to ambulate to bathroom;morbidly obese female HEENT- PEERLA, EOMI intact Heart S1-S2 audible, rate and rhythm regular, no murmur Lungs- CTAB, no wheeze or rhonchi Abdomen- distended, lower abdominal tenderness, bowel sound+ Musculoskeletal-no acute joint swelling or tenderness or redness Lower extremity- no leg edema, but pain in the left lateral thigh Neurological- cranial nerves intact, no acute dysarthria or dysphagia Skin- no acute rash or purpura laboratory and microbiology Laboratory Tests 05/27/24 04:21 05/26/24 07:37 Test 05/27/24 04:21 Range/Units Serum Glucose 133 H 74-106 mg/dL CT SCAN ABD PELVIS 05/26 IMPRESSION: 1. Improving sigmoid diverticulitis 2. Drainage catheter is seen in the lower midline abdomen with tip curled in a small air/ fluid filled collection measuring up to 3.9 cm (previously measuring up to 7.6 cm on May 23, 2024). Problems(with codes): (1) Diverticulitis of intestine with perforation and abscess (2) Elevated brain natriuretic peptide (BNP) level (3) Diverticulitis (4) Urinary tract infection (5) Cholelithiasis Prognosis Plan Continue IV antibiotics Pigtail catheter in place Continue IV Clinimix Supportive care Discharge planning as per hospitalist Surgical follow up in 2-4 weeks after discharge with a repeat CT GI follow up in 6-8 weeks to discuss elective colonoscopy Dietary Evaluation Review Comments: 1) Advance pt diet when medically feasible to a [id number]/[id number] diet 2) Continue current plan of care Expected Outcomes/Goals: F/U in 3-5 days Plan discussed with: Patient MITCHELL DEMPSEY MD May 27, 2024 08:11
[2024-05-27] MEDS: FUROSEMIDE 40 MG/4 ML VIAL IV SCH (10:23)
--- NOTE | 2024-05-27 13:26 | DVHPN2 ---
Progress Note - Dictate Date Seen: May 27, 2024 Medical Necessity Reason Pt with a Central, PICC or Fol: Yes Subjective Patient was seen and evaluated in follow up. Patient is in cheerful spirits today. Patient complains of abdominal discomfort. There was approximately 10 ml of pus output since patient's drainage bag was changed. Patient will be started on a clear liquid diet. GLUC 148. vital signs Vital Sign Date Time Temp Pulse Resp B/P (MAP) Pulse Ox O2 Delivery O2 Flow Rate FiO2 05/27/24 11:30 77 16 127/70 05/27/24 09:00 98.1 94 98.1 05/27/24 08:00 Room Air* 0 21 Total Intake and Output 05/26/24 05/26/24 05/27/24 15:00 23:00 07:00 Intake Total 500 ml 200 ml 500 ml Balance 500 ml 200 ml 500 ml medications Current Medications Medications Dose Ordered Sig/Lanette Route Start Time Stop Time Status Last Admin Dose Admin Atenolol 25 mg BID PO 05/10/24 10:00 Hold 05/10/24 21:38 25 MG Levothyroxine Sodium 125 mcg QAM@0600 PO 05/10/24 06:00 05/27/24 05:45 125 MCG Atorvastatin Calcium 40 mg HS PO 05/10/24 22:00 05/26/24 22:20 40 MG Ondansetron HCl 4 mg Q4HP PRN IV 05/09/24 23:00 Hold Acetaminophen 650 mg Q6HP PRN PO 05/09/24 23:00 05/23/24 15:13 650 MG Nitroglycerin 0.4 mg Q5MINP PRN SL 05/09/24 23:00 Enoxaparin Sodium 130 mg Q12HR SC 05/10/24 10:00 UNV Pantoprazole Sodium 40 mg DAILY IV 05/11/24 10:00 05/27/24 10:22 40 MG Baclofen 5 mg Q8HP PRN PO 05/12/24 19:15 Nifedipine 10 mg Q6HR PO 05/13/24 18:00 05/27/24 11:19 10 MG Metoprolol Succinate 25 mg TID PO 05/13/24 14:00 05/27/24 05:46 25 MG Lisinopril 40 mg DAILY PO 05/14/24 10:00 05/27/24 10:24 40 MG Amiodarone HCl 200 mg Q12HR PO 05/15/24 10:00 05/27/24 10:24 200 MG Amino Acids 0 ml @ 0 mls/hr PER PHARMACY IV 05/18/24 14:15 Diagnostic Test (Pha) 1 strip Q6HR 05/19/24 00:00 05/27/24 11:19 1 STRIP Insulin Human Regular FOLLOW SLIDING SCALE Q6HR SC 05/19/24 00:00 05/27/24 11:20 2 UNITS Dextrose 50 ml UD IV 05/19/24 00:00 Sodium Chloride 10 ml QSHIFT@10,22 IV 05/18/24 22:00 05/27/24 10:24 10 ML Piperacillin Sod/ Tazobactam Sod 100 ml @ 25 mls/hr Q8H IV 05/23/24 20:00 05/27/24 11:20 25 MLS/HR Vancomycin HCl 0 ml @ 0 mls/hr UD IV 05/23/24 20:45 Micafungin Sodium 100 mg/Sodium Chloride 100 ml @ 100 mls/hr DAILY IV 05/24/24 10:00 05/27/24 10:23 100 MLS/HR Hydralazine HCl 5 mg Q4HP PRN IV 05/24/24 12:00 05/24/24 13:46 5 MG Hydromorphone HCl 0.2 mg Q3HPRN PRN IV 05/25/24 13:45 05/27/24 10:22 0.2 MG Hydromorphone HCl 0.4 mg Q3HR PRN IV 05/25/24 13:45 Vancomycin HCl 200 ml @ 200 mls/hr Q10H IV 05/26/24 00:00 05/27/24 05:47 200 MLS/HR Fat Emulsion Intravenous 150 ml/Sodium Chloride 40 meq/ Sodium Acetate 20 meq/Potassium Chloride 40 meq/ Potassium Phosphate 44 meq/ Magnesium Sulfate 16 meq/ Multivitamins 10 ml/Chromium/ Copper/Manganese/ Zinc 1 ml/Amino Acids/Dextrose 1,315 ml @ 55 mls/hr [id number] IV 05/26/24 22:00 05/27/24 19:59 05/26/24 22:50 55 MLS/HR Furosemide 40 mg DAILY IV 05/27/24 10:00 05/27/24 10:23 40 MG Fat Emulsion Intravenous 50 ml/ Sodium Acetate 40 meq/Sodium Phosphate 20 meq/ Potassium Acetate 40 meq/Potassium Phosphate 22 meq/ Magnesium Sulfate 12 meq/ Multivitamins 10 ml/Chromium/ Copper/Manganese/ Zinc 1 ml/Amino Acids/Dextrose 1,264 ml @ 53 mls/hr [id number] IV 05/27/24 22:00 05/28/24 19:59 objective GENERAL: Awake, alert, oriented. Morbidly obese. LUNGS: Clear. CARDIOVASCULAR: Tachycardic. ABDOMEN: Soft, tender in the left lower quadrant, nondistended, bowel sounds present all 4 quadrants, no guarding. laboratory and microbiology Laboratory Tests 05/27/24 04:21 05/26/24 07:37 Test 05/27/24 04:21 Range/Units Serum Glucose 133 H 74-106 mg/dL Problem List Atrial fibrillation with rapid ventricular response. Acute diverticulitis with microperforation. Morbid obesity. Profound leukocytosis. Acute abdominal pain. Elevated troponin. Hypokalemia. UTI. Morbid obesity. Diarrhea. Hypertension. Hypothyroidism. Assessment/Plan Continued all current supportive medical care. Morphine and [place] for pain management. Amiodarone. Lipitor, Metoprolol. IV antibiotics as ordered. GI prophylactics. Lisinopril, Nifedipine. Additional plan as per the hospital course. Dietary Evaluation Review Comments: 1) Advance pt diet when medically feasible to a [id number]/[id number] diet 2) Continue current plan of care Expected Outcomes/Goals: F/U in 3-5 days Plan discussed with: Patient TRESA MCFARLANE MD May 27, 2024 13:08
--- NOTE | 2024-05-27 20:25 | DVHPN2 ---
Progress Note - Dictate Date Seen: May 27, 2024 Medical Necessity Reason Pt with a Central, PICC or Fol: Yes Subjective Patient was seen and evaluated in follow up. No acute events overnight. Patient denies any abdominal pain. Right mid abdomen with pigtail catheter, approximately 10 mL of pus output since drainage bag exchanged. Currently on TPN. To be started on clear liquid diet per surgery. vital signs Vital Sign Date Time Temp Pulse Resp B/P (MAP) Pulse Ox O2 Delivery O2 Flow Rate FiO2 05/27/24 17:34 125/68 05/27/24 17:00 98.0 70 20 94 98.0 05/27/24 08:00 Room Air* 0 21 Total Intake and Output 05/26/24 05/26/24 05/27/24 15:00 23:00 07:00 Intake Total 500 ml 200 ml 500 ml Balance 500 ml 200 ml 500 ml medications Current Medications Medications Dose Ordered Sig/Lanette Route Start Time Stop Time Status Last Admin Dose Admin Atenolol 25 mg BID PO 05/10/24 10:00 Hold 05/10/24 21:38 25 MG Levothyroxine Sodium 125 mcg QAM@0600 PO 05/10/24 06:00 05/27/24 05:45 125 MCG Atorvastatin Calcium 40 mg HS PO 05/10/24 22:00 05/26/24 22:20 40 MG Ondansetron HCl 4 mg Q4HP PRN IV 05/09/24 23:00 Hold Acetaminophen 650 mg Q6HP PRN PO 05/09/24 23:00 05/23/24 15:13 650 MG Nitroglycerin 0.4 mg Q5MINP PRN SL 05/09/24 23:00 Enoxaparin Sodium 130 mg Q12HR SC 05/10/24 10:00 UNV Pantoprazole Sodium 40 mg DAILY IV 05/11/24 10:00 05/27/24 10:22 40 MG Baclofen 5 mg Q8HP PRN PO 05/12/24 19:15 Nifedipine 10 mg Q6HR PO 05/13/24 18:00 05/27/24 17:34 10 MG Metoprolol Succinate 25 mg TID PO 05/13/24 14:00 05/27/24 14:05 25 MG Lisinopril 40 mg DAILY PO 05/14/24 10:00 05/27/24 10:24 40 MG Amiodarone HCl 200 mg Q12HR PO 05/15/24 10:00 05/27/24 10:24 200 MG Amino Acids 0 ml @ 0 mls/hr PER PHARMACY IV 05/18/24 14:15 Diagnostic Test (Pha) 1 strip Q6HR 05/19/24 00:00 05/27/24 17:34 1 STRIP Insulin Human Regular FOLLOW SLIDING SCALE Q6HR SC 05/19/24 00:00 05/27/24 17:34 2 UNITS Dextrose 50 ml UD IV 05/19/24 00:00 Sodium Chloride 10 ml QSHIFT@10,22 IV 05/18/24 22:00 05/27/24 10:24 10 ML Piperacillin Sod/ Tazobactam Sod 100 ml @ 25 mls/hr Q8H IV 05/23/24 20:00 05/27/24 11:20 25 MLS/HR Vancomycin HCl 0 ml @ 0 mls/hr UD IV 05/23/24 20:45 Micafungin Sodium 100 mg/Sodium Chloride 100 ml @ 100 mls/hr DAILY IV 05/24/24 10:00 05/27/24 10:23 100 MLS/HR Hydralazine HCl 5 mg Q4HP PRN IV 05/24/24 12:00 05/24/24 13:46 5 MG Hydromorphone HCl 0.2 mg Q3HPRN PRN IV 05/25/24 13:45 05/27/24 14:16 0.2 MG Hydromorphone HCl 0.4 mg Q3HR PRN IV 05/25/24 13:45 Furosemide 40 mg DAILY IV 05/27/24 10:00 05/27/24 10:23 40 MG Fat Emulsion Intravenous 50 ml/ Sodium Acetate 40 meq/Sodium Phosphate 20 meq/ Potassium Acetate 40 meq/Potassium Phosphate 22 meq/ Magnesium Sulfate 12 meq/ Multivitamins 10 ml/Chromium/ Copper/Manganese/ Zinc 1 ml/Amino Acids/Dextrose 1,264 ml @ 53 mls/hr [id number] IV 05/27/24 22:00 05/28/24 19:59 objective Physical exam: Vitals and nursing notes reviewed. General: In no acute distress, morbidly obese. HEENT: Normocephalic atraumatic, mucous membranes moist and pink. Neck: Cervical and supraclavicular nodes normal without enlargement. Pulmonary: Clear to auscultation and percussion bilaterally. Cardiac: RRR. No murmur. Abdomen: Soft, tender, nondistended, bowel sounds present all 4 quadrants, no guarding. Musculoskeletal: No deformity. Neuro: Cranial nerves II through XII grossly intact, normal affect and speech, no focal motor deficits. Skin: Warm, dry, normal color and texture, no rash. laboratory and microbiology Laboratory Tests 05/27/24 04:21 05/26/24 07:37 Test 05/27/24 04:21 Range/Units Serum Glucose 133 H 74-106 mg/dL Problem List Acute diverticulitis Acute abdominal pain Elevated troponin Hypokalemia UTI Morbid obesity Assessment/Plan Continue all current supportive medical care. Surgery, GI and Cardiology consults. S/p CT-guided drainage of abscess with IR 05/15. Replacement of pigtail 05/24. IV Vancomycin, Zosyn and Micafungin. Nutritional support with TPN per pharmacy. Started on clear liquid diet. Lasix 40 mg IV daily. Protonix 40 mg IV daily. Enoxaparin 130 mg SC q12h. Pain management prn. Additional plan as per the hospital course. Dietary Evaluation Review Comments: 1) Advance pt diet when medically feasible to a [id number]/[id number] diet 2) Continue current plan of care Expected Outcomes/Goals: F/U in 3-5 days Plan discussed with: Patient, Other (RN) SMITHA MCFARLANE DO May 27, 2024 20:25
[2024-05-27] MEDS: HYDROmorphone HCL 2 MG/ML VL/or syr IV PRN (22:01)
[2024-05-27] MEDS: TPN PER PHARMACY IV NR (22:23)
[2024-05-28] VITALS (8 sets, daily range): BP systolic 103–137; BP diastolic 50–82; PULSE 75–99; RESP 17–22; TEMP 97.1–98.4; O2SAT 91–100
[2024-05-28 05:50] LABS: Basophils # (auto) 0.2 10 ^3/uL (0-0.2); Basophils % (auto) 2.8 % (0.0-2.0); Eosinophils # (auto) 0.7 10 ^3/uL (0-0.8); White Blood Cell 8.1 10^3/uL (4.4-10.8)
[2024-05-28 05:52] LABS: Lymphocytes # (auto) 1.8 10 ^3/uL (0.4-5.4); Lymphocytes % (auto) 21.7 % (10.0-50.0); Mean Corpuscular Hgb Conc. 32.3 g/dL (32.0-36.0); Mean Corpuscular Volume 92.7 fL (80.0-100.0); Monocytes % (auto) 11.8 % (0.0-12.0); Neutrophils # (auto) 4.5 10 ^3/uL (1.6-8.6); Neutrophils % (auto) 55.7 % (37.0-80.0); Nucleated Red Blood Cells % 0.1 %; Platelet Count (auto) 487 10^3/uL (140-450); Red Blood Cells 3.67 10^6/uL (4.0-5.20); Red Cell Distribution Width 16.2 % (11.8-14.3)
[2024-05-28 06:06] LABS: Alanine Aminotransferase 13 U/L (7-40); Albumin 3.8 g/dL (3.2-4.8); Alkaline Phosphatase 73 U/L (46-116); Anion Gap 11 (5-15); Aspartate Aminotransferase 17 U/L (13-40); BUN/Creatinine Ratio 31.3 (10.0-20.0); Blood Urea Nitrogen 31 mg/dL (9-23); Calcium 9.8 mg/dL (8.7-10.4); Carbon Dioxide 22 mmol/L (20-31); Chloride 104 mmol/L (98-107); Glucose 105 mg/dL (74-106); Potassium 4.4 mmol/L (3.5-5.1); Sodium 137 mmol/L (136-145)
[2024-05-28 06:07] LABS: Bilirubin, Total 0.4 mg/dL (0.2-1.0); Phosphorus 4.4 mg/dL (2.4-5.1); Total Protein 6.3 g/dL (5.7-8.2)
[2024-05-28] MEDS: VANCOMYCIN 500 MG in D5W 5% 100 ML IV SCH (11:00)
--- NOTE | 2024-05-28 15:54 | DVHPN2 ---
Consult Progress Note Date Seen: May 27, 2024 Objective vital signs Vital Sign Date Time Temp Pulse Resp B/P (MAP) Pulse Ox O2 Delivery O2 Flow Rate FiO2 05/28/24 14:05 75 117/55 05/28/24 13:00 97.8 17 91 97.8 05/28/24 08:00 Room Air* 0 21 Total Intake and Output 05/27/24 05/27/24 05/28/24 15:00 23:00 07:00 Intake Total 125 ml 130 ml 350 ml Balance 125 ml 130 ml 350 ml medications Current Medications Medications Dose Ordered Sig/Lanette Route Start Time Stop Time Status Last Admin Dose Admin Atenolol 25 mg BID PO 05/10/24 10:00 Hold 05/10/24 21:38 25 MG Levothyroxine Sodium 125 mcg QAM@0600 PO 05/10/24 06:00 05/28/24 05:07 125 MCG Atorvastatin Calcium 40 mg HS PO 05/10/24 22:00 05/27/24 22:05 40 MG Ondansetron HCl 4 mg Q4HP PRN IV 05/09/24 23:00 Hold Acetaminophen 650 mg Q6HP PRN PO 05/09/24 23:00 05/23/24 15:13 650 MG Nitroglycerin 0.4 mg Q5MINP PRN SL 05/09/24 23:00 Enoxaparin Sodium 130 mg Q12HR SC 05/10/24 10:00 UNV Pantoprazole Sodium 40 mg DAILY IV 05/11/24 10:00 05/28/24 11:41 40 MG Baclofen 5 mg Q8HP PRN PO 05/12/24 19:15 Nifedipine 10 mg Q6HR PO 05/13/24 18:00 05/28/24 14:05 10 MG Metoprolol Succinate 25 mg TID PO 05/13/24 14:00 05/28/24 14:05 25 MG Lisinopril 40 mg DAILY PO 05/14/24 10:00 05/28/24 11:43 40 MG Amiodarone HCl 200 mg Q12HR PO 05/15/24 10:00 05/28/24 11:43 200 MG Amino Acids 0 ml @ 0 mls/hr PER PHARMACY IV 05/18/24 14:15 Diagnostic Test (Pha) 1 strip Q6HR 05/19/24 00:00 05/28/24 12:10 1 STRIP Insulin Human Regular FOLLOW SLIDING SCALE Q6HR SC 05/19/24 00:00 05/27/24 17:34 2 UNITS Dextrose 50 ml UD IV 05/19/24 00:00 Sodium Chloride 10 ml QSHIFT@10,22 IV 05/18/24 22:00 05/28/24 11:44 10 ML Piperacillin Sod/ Tazobactam Sod 100 ml @ 25 mls/hr Q8H IV 05/23/24 20:00 05/28/24 14:10 25 MLS/HR Vancomycin HCl 0 ml @ 0 mls/hr UD IV 05/23/24 20:45 Micafungin Sodium 100 mg/Sodium Chloride 100 ml @ 100 mls/hr DAILY IV 05/24/24 10:00 05/28/24 11:46 100 MLS/HR Hydralazine HCl 5 mg Q4HP PRN IV 05/24/24 12:00 05/24/24 13:46 5 MG Hydromorphone HCl 0.2 mg Q3HPRN PRN IV 05/25/24 13:45 05/27/24 14:16 0.2 MG Hydromorphone HCl 0.4 mg Q3HR PRN IV 05/25/24 13:45 05/28/24 11:45 0.4 MG Furosemide 40 mg DAILY IV 05/27/24 10:00 05/28/24 11:42 40 MG Fat Emulsion Intravenous 50 ml/ Sodium Acetate 40 meq/Sodium Phosphate 20 meq/ Potassium Acetate 40 meq/Potassium Phosphate 22 meq/ Magnesium Sulfate 12 meq/ Multivitamins 10 ml/Chromium/ Copper/Manganese/ Zinc 1 ml/Amino Acids/Dextrose 1,264 ml @ 53 mls/hr [id number] IV 05/27/24 22:00 05/28/24 19:59 Vancomycin HCl 500 mg/Dextrose 100 ml @ 200 mls/hr Q12H IV 05/28/24 11:00 Sodium Acetate 20 meq/Sodium Phosphate 20 meq/ Potassium Acetate 20 meq/Potassium Phosphate 22 meq/ Magnesium Sulfate 12 meq/ Multivitamins 10 ml/Chromium/ Copper/Manganese/ Zinc 1 ml/Amino Acids/Dextrose 844 ml @ 35 mls/hr Q24H7M IV 05/28/24 22:00 05/29/24 21:59 PHYSICAL EXAM: - GENERAL: Alert and oriented x 3. No acute distress. Well-nourished. ? - EYES: EOMI. Anicteric. ?- HENT: Moist mucous membranes. No scleral icterus. No cervical lymphadenopathy. ?- LUNGS: Clear to auscultation bilaterally. No accessory muscle use.? - CARDIOVASCULAR: Regular rate and rhythm. No murmur. No JVD.? - ABDOMEN: Soft, non-tender and non-distended. No palpable masses.? - EXTREMITIES: No edema. Non-tender.?SKIN: No rashes or lesions. Warm. ? - NEUROLOGIC: No focal neurological deficits. CN II-XII grossly intact, but not individually tested.? - PSYCHIATRIC: Cooperative. Appropriate mood and affect. laboratory and microbiology Laboratory Tests 05/28/24 05:02 Test 05/28/24 05:02 Range/Units Serum Glucose 105 74-106 mg/dL Problem List/Assessment/Plan Problem List/Assessment/Plan ID Problem List: - Acute diverticulitis - Diverticular abscess - Acute abdominal pain UTI - Elevated troponin - Hypokalemia - Morbid obesity - Diarrhea - Hypertension - Hypothyroidism Assessment: This is a 73 y.o. female with a past medical history of hypertension, hyperlipidemia, kidney transplant, hypothyroidism, morbid obesity, and end-stage renal disease who presents with lower abdominal pain on May 09. The pain was nonradiating and associated with nausea, diarrhea, and poor appetite. The patient visited [facility] urgent care on May 09 for unprovoked onset of persisting symptoms except with the exception of diarrhea for the past days. The patient reported experiencing urinary retention, constipation, and fever initially for 2 days, then it subsided on its own. CT abdomen revealed diverticulitis with air in the retroperitoneum, findings suggestive of abscess, cholestasis, and small hiatal hernia. Chest X-ray showed no acute findings, and HIDA scan showed nonvisualization of the gallbladder suggestive of cystic duct obstruction. Repeat CT abdomen on May 15 showed moderate fat stranding and induration of the central mesentery, with a 6.5 by 6.2 cm collection of air and minimal fluid suggestive of acute diverticulitis with rupture and associated abscess. The patient underwent IR drainage of the pelvic abscess on July 16. Culture revealed E. coli and Proteus mirabilis, both sensitive to ANCEF and Unison. The patient has been on ceftriaxone and Flagyl. 05/21: appears to require prolonged TPN needs , pharmacy is not providing ceftazidime. 05/22: patient has had over 135 ccs of drainage , likely sufficient for antibiotics to be appropriate monotherapy for treatment 05/23: white count has normalized, microbiology shows E Coli, proteus , enterococcus and yeast. the E Coli and proteus are sensitive to zosyn. Ct scan shos a persistent abscess in the central pelvis 7.76 by 6.6 . pictile cathedeter should be removed and a new one placed . does not appear that patient would have any drug contraindications to vancomycin or fluconazol and start by IV because patient is NPO 05/24: she had a Ct guided drainage adjustment and pic tail was placed on her abdomen on a different location , unlcear how much drainage was relieved from procedure. New piccline placed. White count continues to downtred 05/25:white count coming down , more output coming from the drain. 05/26: Ct abdomen and pelvis doen and shows improved sigmoid diverticulitis and the catheter is sen in the midline abdomen with fluid collection in 3.9 cm , better from last which was 7.[address] Dumont is recommending close observation and IV antibiotics , agree with plan Plan: - continue micafungen and vancomycin and zosyn - as more prevalent drainage continues to come out and surgery clears patient for oral diets, will transition patient to oral antibiotics , otherwise patient will need additional surgery based off drainage - Monitor drainage and consider additional IR drainage or surgical I&D if necessary - Discuss the need for extended IV antibiotic therapy, potentially 30 days with follow up CT abd pelvis afterwards Isolation Precautions: standard Assessment and plan were discussed with the patient as written above. Plan is subject to change pending incorporation of new incoming information/diagnostics. Updates may be added as an addendum at the bottom (OR TOP) of this note. Thank you for the interesting consult. ID will continue to follow. Please contact Infectious Disease for any questions or concerns. Quincy Wooten M.D. [facility] Plan discussed with: Patient Dietary Evaluation Review Comments: 1) Advance pt diet when medically feasible to a [id number]/[id number] diet 2) Continue current plan of care Expected Outcomes/Goals: F/U in 3-5 days QUINCY WOOTEN MD May 28, 2024 15:54
--- NOTE | 2024-05-28 18:40 | DVHPN2 ---
Progress Note - Dictate Date Seen: May 28, 2024 Medical Necessity Reason Pt with a Central, PICC or Fol: Yes Subjective Patient was seen and evaluated in follow up. No overnight events. Patient is receiving TPN for nutritional support. Patient received right mid abdomen with pigtail catheter. BUN 31. vital signs Vital Sign Date Time Temp Pulse Resp B/P (MAP) Pulse Ox O2 Delivery O2 Flow Rate FiO2 05/28/24 17:00 98.1 78 22 103/54 (70) 92 98.1 05/28/24 08:00 Room Air* 0 21 Total Intake and Output 05/27/24 05/27/24 05/28/24 15:00 23:00 07:00 Intake Total 125 ml 130 ml 350 ml Balance 125 ml 130 ml 350 ml medications Current Medications Medications Dose Ordered Sig/Lanette Route Start Time Stop Time Status Last Admin Dose Admin Atenolol 25 mg BID PO 05/10/24 10:00 Hold 05/10/24 21:38 25 MG Levothyroxine Sodium 125 mcg QAM@0600 PO 05/10/24 06:00 05/28/24 05:07 125 MCG Atorvastatin Calcium 40 mg HS PO 05/10/24 22:00 05/27/24 22:05 40 MG Ondansetron HCl 4 mg Q4HP PRN IV 05/09/24 23:00 Hold Acetaminophen 650 mg Q6HP PRN PO 05/09/24 23:00 05/23/24 15:13 650 MG Nitroglycerin 0.4 mg Q5MINP PRN SL 05/09/24 23:00 Enoxaparin Sodium 130 mg Q12HR SC 05/10/24 10:00 UNV Pantoprazole Sodium 40 mg DAILY IV 05/11/24 10:00 05/28/24 11:41 40 MG Baclofen 5 mg Q8HP PRN PO 05/12/24 19:15 Nifedipine 10 mg Q6HR PO 05/13/24 18:00 05/28/24 14:05 10 MG Metoprolol Succinate 25 mg TID PO 05/13/24 14:00 05/28/24 14:05 25 MG Lisinopril 40 mg DAILY PO 05/14/24 10:00 05/28/24 11:43 40 MG Amiodarone HCl 200 mg Q12HR PO 05/15/24 10:00 05/28/24 11:43 200 MG Amino Acids 0 ml @ 0 mls/hr PER PHARMACY IV 05/18/24 14:15 Diagnostic Test (Pha) 1 strip Q6HR 05/19/24 00:00 05/28/24 12:10 1 STRIP Insulin Human Regular FOLLOW SLIDING SCALE Q6HR SC 05/19/24 00:00 05/27/24 17:34 2 UNITS Dextrose 50 ml UD IV 05/19/24 00:00 Sodium Chloride 10 ml QSHIFT@10,22 IV 05/18/24 22:00 05/28/24 11:44 10 ML Vancomycin HCl 0 ml @ 0 mls/hr UD IV 05/23/24 20:45 Micafungin Sodium 100 mg/Sodium Chloride 100 ml @ 100 mls/hr DAILY IV 05/24/24 10:00 05/28/24 11:46 100 MLS/HR Hydralazine HCl 5 mg Q4HP PRN IV 05/24/24 12:00 05/24/24 13:46 5 MG Hydromorphone HCl 0.2 mg Q3HPRN PRN IV 05/25/24 13:45 05/27/24 14:16 0.2 MG Hydromorphone HCl 0.4 mg Q3HR PRN IV 05/25/24 13:45 05/28/24 11:45 0.4 MG Furosemide 40 mg DAILY IV 05/27/24 10:00 05/28/24 11:42 40 MG Fat Emulsion Intravenous 50 ml/ Sodium Acetate 40 meq/Sodium Phosphate 20 meq/ Potassium Acetate 40 meq/Potassium Phosphate 22 meq/ Magnesium Sulfate 12 meq/ Multivitamins 10 ml/Chromium/ Copper/Manganese/ Zinc 1 ml/Amino Acids/Dextrose 1,264 ml @ 53 mls/hr [id number] IV 05/27/24 22:00 05/28/24 21:59 Vancomycin HCl 500 mg/Dextrose 100 ml @ 200 mls/hr Q12H IV 05/28/24 11:00 Sodium Acetate 20 meq/Sodium Phosphate 20 meq/ Potassium Acetate 20 meq/Potassium Phosphate 22 meq/ Magnesium Sulfate 12 meq/ Multivitamins 10 ml/Chromium/ Copper/Manganese/ Zinc 1 ml/Amino Acids/Dextrose 844 ml @ 35 mls/hr Q24H7M IV 05/28/24 22:00 05/29/24 21:59 Ceftriaxone Sodium/Dextrose 50 ml @ 50 mls/hr DAILY IV 05/29/24 10:00 objective GENERAL: Awake, alert, oriented. Morbidly obese. LUNGS: Clear. CARDIOVASCULAR: Tachycardic. ABDOMEN: Soft, tender in the left lower quadrant, nondistended, bowel sounds present all 4 quadrants, no guarding. laboratory and microbiology Laboratory Tests 05/28/24 05:02 Test 05/28/24 05:02 Range/Units Serum Glucose 105 74-106 mg/dL Problem List Atrial fibrillation with rapid ventricular response. Acute diverticulitis with microperforation. Morbid obesity. Profound leukocytosis. Acute abdominal pain. Elevated troponin. Hypokalemia. UTI. Morbid obesity. Diarrhea. Hypertension. Hypothyroidism. Assessment/Plan Continued all current supportive medical care. Amiodarone. Lipitor, Metoprolol. IV antibiotics as ordered. Diuretics with Lasix. Dilaudid for pain management. Synthroid. GI prophylactics. Lisinopril, Nifedipine. Additional plan as per the hospital course. Dietary Evaluation Review Comments: 1) Advance pt diet when medically feasible to a [id number]/2gNa diet 2) Continue current plan of care Expected Outcomes/Goals: F/U in 3-5 days Plan discussed with: Patient TRESA MCFARLANE MD May 28, 2024 18:40
[2024-05-28] MEDS: cefTRIAXone 2GM/50ML D5W 50 ML IV ONE (19:55)
--- NOTE | 2024-05-28 19:56 | DVHPN2 ---
Progress Note - Dictate Date Seen: May 28, 2024 Medical Necessity Reason Pt with a Central, PICC or Fol: Yes Subjective Patient was seen and evaluated in follow up. No acute events overnight. Pain is controlled. No N/V. WBC is wnl. vital signs Vital Sign Date Time Temp Pulse Resp B/P (MAP) Pulse Ox O2 Delivery O2 Flow Rate FiO2 05/28/24 17:00 98.1 78 22 103/54 (70) 92 98.1 05/28/24 08:00 Room Air* 0 21 Total Intake and Output 05/27/24 05/27/24 05/28/24 15:00 23:00 07:00 Intake Total 125 ml 130 ml 350 ml Balance 125 ml 130 ml 350 ml medications Current Medications Medications Dose Ordered Sig/Lanette Route Start Time Stop Time Status Last Admin Dose Admin Atenolol 25 mg BID PO 05/10/24 10:00 Hold 05/10/24 21:38 25 MG Levothyroxine Sodium 125 mcg QAM@0600 PO 05/10/24 06:00 05/28/24 05:07 125 MCG Atorvastatin Calcium 40 mg HS PO 05/10/24 22:00 05/27/24 22:05 40 MG Ondansetron HCl 4 mg Q4HP PRN IV 05/09/24 23:00 Hold Acetaminophen 650 mg Q6HP PRN PO 05/09/24 23:00 05/23/24 15:13 650 MG Nitroglycerin 0.4 mg Q5MINP PRN SL 05/09/24 23:00 Enoxaparin Sodium 130 mg Q12HR SC 05/10/24 10:00 UNV Pantoprazole Sodium 40 mg DAILY IV 05/11/24 10:00 05/28/24 11:41 40 MG Baclofen 5 mg Q8HP PRN PO 05/12/24 19:15 Nifedipine 10 mg Q6HR PO 05/13/24 18:00 05/28/24 14:05 10 MG Metoprolol Succinate 25 mg TID PO 05/13/24 14:00 05/28/24 14:05 25 MG Lisinopril 40 mg DAILY PO 05/14/24 10:00 05/28/24 11:43 40 MG Amiodarone HCl 200 mg Q12HR PO 05/15/24 10:00 05/28/24 11:43 200 MG Diagnostic Test (Pha) 1 strip Q6HR 05/19/24 00:00 05/28/24 12:10 1 STRIP Insulin Human Regular FOLLOW SLIDING SCALE Q6HR SC 05/19/24 00:00 05/27/24 17:34 2 UNITS Dextrose 50 ml UD IV 05/19/24 00:00 Sodium Chloride 10 ml QSHIFT@10,22 IV 05/18/24 22:00 05/28/24 11:44 10 ML Vancomycin HCl 0 ml @ 0 mls/hr UD IV 05/23/24 20:45 Micafungin Sodium 100 mg/Sodium Chloride 100 ml @ 100 mls/hr DAILY IV 05/24/24 10:00 05/28/24 11:46 100 MLS/HR Hydralazine HCl 5 mg Q4HP PRN IV 05/24/24 12:00 05/24/24 13:46 5 MG Hydromorphone HCl 0.2 mg Q3HPRN PRN IV 05/25/24 13:45 05/27/24 14:16 0.2 MG Hydromorphone HCl 0.4 mg Q3HR PRN IV 05/25/24 13:45 05/28/24 11:45 0.4 MG Furosemide 40 mg DAILY IV 05/27/24 10:00 05/28/24 11:42 40 MG Fat Emulsion Intravenous 50 ml/ Sodium Acetate 40 meq/Sodium Phosphate 20 meq/ Potassium Acetate 40 meq/Potassium Phosphate 22 meq/ Magnesium Sulfate 12 meq/ Multivitamins 10 ml/Chromium/ Copper/Manganese/ Zinc 1 ml/Amino Acids/Dextrose 1,264 ml @ 53 mls/hr [id number] IV 05/27/24 22:00 05/28/24 21:59 Vancomycin HCl 500 mg/Dextrose 100 ml @ 200 mls/hr Q12H IV 05/28/24 11:00 Sodium Acetate 20 meq/Sodium Phosphate 20 meq/ Potassium Acetate 20 meq/Potassium Phosphate 22 meq/ Magnesium Sulfate 12 meq/ Multivitamins 10 ml/Chromium/ Copper/Manganese/ Zinc 1 ml/Amino Acids/Dextrose 844 ml @ 35 mls/hr Q24H7M IV 05/28/24 22:00 05/29/24 21:59 Ceftriaxone Sodium/Dextrose 50 ml @ 50 mls/hr DAILY IV 05/29/24 10:00 Enoxaparin Sodium 40 mg DAILY SC 05/29/24 10:00 UNV objective Physical exam: Vitals and nursing notes reviewed. General: In no acute distress, morbidly obese. HEENT: Normocephalic atraumatic, mucous membranes moist and pink. Neck: Cervical and supraclavicular nodes normal without enlargement. Pulmonary: Clear to auscultation and percussion bilaterally. Cardiac: RRR. No murmur. Abdomen: Soft, tender, nondistended, bowel sounds present all 4 quadrants, no guarding. Musculoskeletal: No deformity. Neuro: Cranial nerves II through XII grossly intact, normal affect and speech, no focal motor deficits. Skin: Warm, dry, normal color and texture, no rash. laboratory and microbiology Laboratory Tests 05/28/24 05:02 Test 05/28/24 05:02 Range/Units Serum Glucose 105 74-106 mg/dL Problem List Acute diverticulitis Acute abdominal pain Elevated troponin Hypokalemia UTI Morbid obesity Assessment/Plan Continue all current supportive medical care. Surgery, GI and Cardiology consults. S/p CT-guided drainage of abscess with IR 05/15. Replacement of pigtail 05/24. IV Vancomycin, Zosyn and Micafungin per Infectious Disease. Nutritional support with TPN per pharmacy. Continued on clear liquid diet. Lasix 40 mg IV daily. Protonix 40 mg IV daily. Enoxaparin 130 mg SC q12h. Pain management prn. Additional plan as per the hospital course. Dietary Evaluation Review Comments: 1) Advance pt diet when medically feasible to a [id number] diet 2) Continue current plan of care Expected Outcomes/Goals: F/U in 3-5 days Plan discussed with: Patient, Other (RN) SMITHA MCFARLANE DO May 28, 2024 19:55
[2024-05-28] MEDS ORDERED: TPN PER PHARMACY IV NR (22:00)
[2024-05-29] VITALS (7 sets, daily range): BP systolic 132–149; BP diastolic 54–62; PULSE 72–89; RESP 18–19; TEMP 97.8–98.3; O2SAT 92–94
[2024-05-29 07:43] LABS: Basophils # (auto) 0.2 10 ^3/uL (0-0.2); Basophils % (auto) 3.2 % (0.0-2.0); Eosinophils # (auto) 0.5 10 ^3/uL (0-0.8); Eosinophils % (auto) 6.8 % (0.0-7.0); Hematocrit 32.4 % (36.0-46.0); Hemoglobin 10.9 g/dL (12.2-16.2); Lymphocytes # (auto) 1.5 10 ^3/uL (0.4-5.4); Lymphocytes % (auto) 22.1 % (10.0-50.0); Mean Corpuscular Hemoglobin 30.7 pg (28.0-32.0); Mean Corpuscular Hgb Conc. 33.7 g/dL (32.0-36.0); Mean Corpuscular Volume 91.2 fL (80.0-100.0); Monocytes # (auto) 0.9 10 ^3/uL (0-1.3); Monocytes % (auto) 14.1 % (0.0-12.0); Neutrophils # (auto) 3.6 10 ^3/uL (1.6-8.6); Neutrophils % (auto) 53.8 % (37.0-80.0); Nucleated Red Blood Cells % 0.2 %; Platelet Count (auto) 471 10^3/uL (140-450); Red Blood Cells 3.55 10^6/uL (4.0-5.20); White Blood Cell 6.7 10^3/uL (4.4-10.8)
[2024-05-29 07:54] LABS: Alanine Aminotransferase 12 U/L (7-40); Albumin 4.1 g/dL (3.2-4.8); Alkaline Phosphatase 79 U/L (46-116); Anion Gap 10 (5-15); Aspartate Aminotransferase 24 U/L (13-40); BUN/Creatinine Ratio 18.2 (10.0-20.0); Blood Urea Nitrogen 22 mg/dL (9-23); Calcium 10.2 mg/dL (8.7-10.4); Carbon Dioxide 22 mmol/L (20-31); Chloride 104 mmol/L (98-107); Glucose 108 mg/dL (74-106); Phosphorus 4.5 mg/dL (2.4-5.1); Sodium 136 mmol/L (136-145)
[2024-05-29 07:55] LABS: Bilirubin, Total 0.4 mg/dL (0.2-1.0)
[2024-05-29] MEDS: cefTRIAXone 2GM/50ML D5W 50 ML IV SCH (09:41)
[2024-05-29] MEDS: ENOXAPARIN SOD 40 MG/0.4 ML SYRINGE SC SCH (09:42)
--- NOTE | 2024-05-29 13:51 | DVHPN2 ---
Consult Progress Note Date Seen: May 28, 2024 Subjective Patient reports: Feels better (no fever or chills) Objective vital signs Vital Sign Date Time Temp Pulse Resp B/P (MAP) Pulse Ox O2 Delivery O2 Flow Rate FiO2 05/29/24 12:21 98.3 89 19 136/54 (81) 94 98.3 05/29/24 08:00 Room Air* 0 21 Total Intake and Output 05/28/24 05/28/24 05/29/24 15:00 23:00 07:00 Intake Total 100 ml 1550 ml 200 ml Balance 100 ml 1550 ml 200 ml medications Current Medications Medications Dose Ordered Sig/Lanette Route Start Time Stop Time Status Last Admin Dose Admin Atenolol 25 mg BID PO 05/10/24 10:00 Hold 05/10/24 21:38 25 MG Levothyroxine Sodium 125 mcg QAM@0600 PO 05/10/24 06:00 05/29/24 05:07 125 MCG Atorvastatin Calcium 40 mg HS PO 05/10/24 22:00 05/28/24 22:18 40 MG Ondansetron HCl 4 mg Q4HP PRN IV 05/09/24 23:00 Hold Acetaminophen 650 mg Q6HP PRN PO 05/09/24 23:00 05/23/24 15:13 650 MG Nitroglycerin 0.4 mg Q5MINP PRN SL 05/09/24 23:00 Enoxaparin Sodium 130 mg Q12HR SC 05/10/24 10:00 UNV Pantoprazole Sodium 40 mg DAILY IV 05/11/24 10:00 05/29/24 09:39 40 MG Baclofen 5 mg Q8HP PRN PO 05/12/24 19:15 Nifedipine 10 mg Q6HR PO 05/13/24 18:00 05/29/24 11:36 10 MG Metoprolol Succinate 25 mg TID PO 05/13/24 14:00 05/28/24 14:05 25 MG Lisinopril 40 mg DAILY PO 05/14/24 10:00 05/29/24 09:40 40 MG Amiodarone HCl 200 mg Q12HR PO 05/15/24 10:00 05/29/24 09:40 200 MG Sodium Chloride 10 ml QSHIFT@ IV 05/18/24 22:00 05/29/24 09:38 10 ML Vancomycin HCl 0 ml @ 0 mls/hr UD IV 05/23/24 20:45 Micafungin Sodium 100 mg/Sodium Chloride 100 ml @ 100 mls/hr DAILY IV 05/24/24 10:00 05/29/24 09:55 100 MLS/HR Hydralazine HCl 5 mg Q4HP PRN IV 05/24/24 12:00 05/24/24 13:46 5 MG Hydromorphone HCl 0.2 mg Q3HPRN PRN IV 05/25/24 13:45 05/27/24 14:16 0.2 MG Hydromorphone HCl 0.4 mg Q3HR PRN IV 05/25/24 13:45 05/29/24 11:38 0.4 MG Furosemide 40 mg DAILY IV 05/27/24 10:00 05/29/24 09:38 40 MG Vancomycin HCl 500 mg/Dextrose 100 ml @ 200 mls/hr Q12H IV 05/28/24 11:00 05/29/24 11:35 200 MLS/HR Sodium Acetate 20 meq/Sodium Phosphate 20 meq/ Potassium Acetate 20 meq/Potassium Phosphate 22 meq/ Magnesium Sulfate 12 meq/ Multivitamins 10 ml/Chromium/ Copper/Manganese/ Zinc 1 ml/Amino Acids/Dextrose 844 ml @ 35 mls/hr Q24H7M IV 05/28/24 22:00 05/29/24 21:59 Cancel Ceftriaxone Sodium/Dextrose 50 ml @ 50 mls/hr DAILY IV 05/29/24 10:00 05/29/24 09:41 50 MLS/HR Enoxaparin Sodium 40 mg DAILY SC 05/29/24 10:00 05/29/24 09:42 40 MG PHYSICAL EXAM: - GENERAL: Alert and oriented x 3. No acute distress. Well-nourished. - EYES: EOMI. Anicteric. HENT: Moist mucous membranes. No scleral icterus. No cervical lymphadenopathy. - LUNGS: Clear to auscultation bilaterally. No accessory muscle use. - CARDIOVASCULAR: Regular rate and rhythm. No murmur. No JVD. - ABDOMEN: Soft, non-tender and non-distended. No palpable masses. - EXTREMITIES: No edema. Non-tender.?SKIN: No rashes or lesions. Warm. - NEUROLOGIC: No focal neurological deficits. CN II-XII grossly intact, but not individually tested. - PSYCHIATRIC: Cooperative. Appropriate mood and affect. laboratory and microbiology Laboratory Tests 05/29/24 06:56 Test 05/29/24 06:56 Range/Units Serum Glucose 108 H 74-106 mg/dL Problem List/Assessment/Plan Problem List/Assessment/Plan ID Problem List: - Acute diverticulitis - Diverticular abscess - Acute abdominal pain UTI - Elevated troponin - Hypokalemia - Morbid obesity - Diarrhea - Hypertension - Hypothyroidism Assessment: This is a 73 y.o. female with a past medical history of hypertension, hyperlipidemia, kidney transplant, hypothyroidism, morbid obesity, and end-stage renal disease who presents with lower abdominal pain on May 09. The pain was nonradiating and associated with nausea, diarrhea, and poor appetite. The patient visited [facility] urgent care on May 09 for unprovoked onset of persisting symptoms except with the exception of diarrhea for the past days. The patient reported experiencing urinary retention, constipation, and fever initially for 2 days, then it subsided on its own. CT abdomen revealed diverticulitis with air in the retroperitoneum, findings suggestive of abscess, cholestasis, and small hiatal hernia. Chest X-ray showed no acute findings, and HIDA scan showed nonvisualization of the gallbladder suggestive of cystic duct obstruction. Repeat CT abdomen on May 15 showed moderate fat stranding and induration of the central mesentery, with a 6.5 by 6.2 cm collection of air and minimal fluid suggestive of acute diverticulitis with rupture and associated abscess. The patient underwent IR drainage of the pelvic abscess on July 16. Culture revealed E. coli and Proteus mirabilis, both sensitive to ANCEF and Unison. The patient has been on ceftriaxone and Flagyl. 05/21: appears to require prolonged TPN needs , pharmacy is not providing ceftazidime. 05/22: patient has had over 135 ccs of drainage , likely sufficient for antibiotics to be appropriate monotherapy for treatment 05/23: white count has normalized, microbiology shows E Coli, proteus , enterococcus and yeast. the E Coli and proteus are sensitive to zosyn. Ct scan shos a persistent abscess in the central pelvis 7.76 by 6.6 . pictile cathedeter should be removed and a new one placed . does not appear that patient would have any drug contraindications to vancomycin or fluconazol and start by IV because patient is NPO 05/24: she had a Ct guided drainage adjustment and pic tail was placed on her abdomen on a different location , unlcear how much drainage was relieved from procedure. New piccline placed. White count continues to downtred 05/25:white count coming down , more output coming from the drain. 05/26: Ct abdomen and pelvis doen and shows improved sigmoid diverticulitis and the catheter is sen in the midline abdomen with fluid collection in 3.9 cm , better from last which was 7.[address] Dumont is recommending close observation and IV antibiotics , agree with plan Plan: - continue micafungen and vancomycin - stop zosyn, switch to Ceftriaxone - as more prevalent drainage continues to come out and surgery clears patient for oral diets, will transition patient to oral antibiotics , otherwise patient will need additional surgery based off drainage - Monitor drainage and consider additional IR drainage or surgical I&D if necessary - Discuss the need for extended IV antibiotic therapy, potentially 30 days with follow up CT abd pelvis afterwards Isolation Precautions: standard Assessment and plan were discussed with the patient as written above. Plan is subject to change pending incorporation of new incoming information/diagnostics. Updates may be added as an addendum at the bottom (OR TOP) of this note. Thank you for the interesting consult. ID will continue to follow. Please contact Infectious Disease for any questions or concerns. Quincy Wooten M.D. [facility] Plan discussed with: Patient Dietary Evaluation Review Comments: 1) Advance pt diet when medically feasible to a [id number] diet 2) Continue current plan of care Expected Outcomes/Goals: F/U in 3-5 days QUINCY WOOTEN MD May 29, 2024 13:51
--- NOTE | 2024-05-29 19:53 | DVHPN2 ---
Progress Note - Dictate Date Seen: May 29, 2024 Medical Necessity Reason Pt with a Central, PICC or Fol: Yes Subjective Patient was seen and evaluated in follow up. No acute events overnight. Patient reports feeling better. Denies any pain, fevers, chills. WBC is normal. Hgb 10.9. Plt count 471. Creatinine 1.21. eGFR 47. vital signs Vital Sign Date Time Temp Pulse Resp B/P (MAP) Pulse Ox O2 Delivery O2 Flow Rate FiO2 05/29/24 19:01 132/57 05/29/24 17:00 97.9 87 19 93 97.9 05/29/24 08:00 Room Air* 0 21 Total Intake and Output 05/28/24 05/28/24 05/29/24 15:00 23:00 07:00 Intake Total 100 ml 1550 ml 200 ml Balance 100 ml 1550 ml 200 ml medications Current Medications Medications Dose Ordered Sig/Lanette Route Start Time Stop Time Status Last Admin Dose Admin Atenolol 25 mg BID PO 05/10/24 10:00 Hold 05/10/24 21:38 25 MG Levothyroxine Sodium 125 mcg QAM@0600 PO 05/10/24 06:00 05/29/24 05:07 125 MCG Atorvastatin Calcium 40 mg HS PO 05/10/24 22:00 05/28/24 22:18 40 MG Ondansetron HCl 4 mg Q4HP PRN IV 05/09/24 23:00 Hold Acetaminophen 650 mg Q6HP PRN PO 05/09/24 23:00 05/23/24 15:13 650 MG Nitroglycerin 0.4 mg Q5MINP PRN SL 05/09/24 23:00 Enoxaparin Sodium 130 mg Q12HR SC 05/10/24 10:00 UNV Pantoprazole Sodium 40 mg DAILY IV 05/11/24 10:00 05/29/24 09:39 40 MG Baclofen 5 mg Q8HP PRN PO 05/12/24 19:15 Nifedipine 10 mg Q6HR PO 05/13/24 18:00 05/29/24 19:01 10 MG Metoprolol Succinate 25 mg TID PO 05/13/24 14:00 05/29/24 14:38 25 MG Lisinopril 40 mg DAILY PO 05/14/24 10:00 05/29/24 09:40 40 MG Amiodarone HCl 200 mg Q12HR PO 05/15/24 10:00 05/29/24 09:40 200 MG Sodium Chloride 10 ml QSHIFT@10,22 IV 05/18/24 22:00 05/29/24 09:38 10 ML Micafungin Sodium 100 mg/Sodium Chloride 100 ml @ 100 mls/hr DAILY IV 05/24/24 10:00 05/29/24 09:55 100 MLS/HR Hydralazine HCl 5 mg Q4HP PRN IV 05/24/24 12:00 05/24/24 13:46 5 MG Hydromorphone HCl 0.2 mg Q3HPRN PRN IV 05/25/24 13:45 05/27/24 14:16 0.2 MG Hydromorphone HCl 0.4 mg Q3HR PRN IV 05/25/24 13:45 05/29/24 11:38 0.4 MG Furosemide 40 mg DAILY IV 05/27/24 10:00 05/29/24 09:38 40 MG Sodium Acetate 20 meq/Sodium Phosphate 20 meq/ Potassium Acetate 20 meq/Potassium Phosphate 22 meq/ Magnesium Sulfate 12 meq/ Multivitamins 10 ml/Chromium/ Copper/Manganese/ Zinc 1 ml/Amino Acids/Dextrose 844 ml @ 35 mls/hr Q24H7M IV 05/28/24 22:00 05/29/24 21:59 Cancel Enoxaparin Sodium 40 mg DAILY SC 05/29/24 10:00 05/29/24 09:42 40 MG Cefpodoxime Proxetil 200 mg BID PO 05/29/24 22:00 Linezolid 600 mg BID PO 05/29/24 22:00 objective Physical exam: Vitals and nursing notes reviewed. General: In no acute distress, morbidly obese. HEENT: Normocephalic atraumatic, mucous membranes moist and pink. Neck: Cervical and supraclavicular nodes normal without enlargement. Pulmonary: Clear to auscultation and percussion bilaterally. Cardiac: RRR. No murmur. Abdomen: Soft, tender, nondistended, bowel sounds present all 4 quadrants, no guarding. Musculoskeletal: No deformity. Neuro: Cranial nerves II through XII grossly intact, normal affect and speech, no focal motor deficits. Skin: Warm, dry, normal color and texture, no rash. laboratory and microbiology Laboratory Tests 05/29/24 06:56 Test 05/29/24 06:56 Range/Units Serum Glucose 108 H 74-106 mg/dL Problem List Acute diverticulitis Acute abdominal pain Elevated troponin Hypokalemia UTI Morbid obesity Assessment/Plan Continue all current supportive medical care. Surgery, GI and Cardiology consulted. S/p CT-guided drainage of abscess with IR 05/15. Replacement of pigtail 05/24. IV Vancomycin, Ceftriaxone and Micafungin per ID. Nutritional support with TPN per pharmacy. Continued on clear liquid diet. Lasix 40 mg IV daily. Amiodarone 200 mg PO q12h. Lisinopril 40 mg PO daily. Nifedipine 10 mg PO q6h. Levothyroxine 125 mcg PO QAM. Protonix 40 mg IV daily. Lovenox 40 mg SC daily. Pain management prn. Additional plan as per the hospital course. Dietary Evaluation Review Comments: 1) Advance pt diet when medically feasible to a [id number]/[id number] diet 2) Continue current plan of care Expected Outcomes/Goals: F/U in 3-5 days Plan discussed with: Patient, Other (RN) SMITHA MCFARLANE DO May 29, 2024 19:53
[2024-05-29] MEDS: LINEZOLID 600MG TABLET PO SCH (20:48)
[2024-05-29] MEDS: CEFPODOXIME PROXETIL 200 MG TAB PO SCH (22:00)
--- NOTE | 2024-05-29 22:03 | DVHPN2 ---
Consult Progress Note Date Seen: May 29, 2024 Subjective Patient reports: Feels better (drainage is minimal , tolerating ceftriaxone without any diarrhea or rash ) Objective vital signs Vital Sign Date Time Temp Pulse Resp B/P (MAP) Pulse Ox O2 Delivery O2 Flow Rate FiO2 05/29/24 20:49 132/57 05/29/24 20:00 Room Air* 0 21 05/29/24 17:00 97.9 87 19 93 97.9 Total Intake and Output 05/28/24 05/28/24 05/29/24 15:00 23:00 07:00 Intake Total 100 ml 1550 ml 200 ml Balance 100 ml 1550 ml 200 ml medications Current Medications Medications Dose Ordered Sig/Lanette Route Start Time Stop Time Status Last Admin Dose Admin Atenolol 25 mg BID PO 05/10/24 10:00 Hold 05/10/24 21:38 25 MG Levothyroxine Sodium 125 mcg QAM@0600 PO 05/10/24 06:00 05/29/24 05:07 125 MCG Atorvastatin Calcium 40 mg HS PO 05/10/24 22:00 05/29/24 20:49 40 MG Ondansetron HCl 4 mg Q4HP PRN IV 05/09/24 23:00 Hold Acetaminophen 650 mg Q6HP PRN PO 05/09/24 23:00 05/23/24 15:13 650 MG Nitroglycerin 0.4 mg Q5MINP PRN SL 05/09/24 23:00 Enoxaparin Sodium 130 mg Q12HR SC 05/10/24 10:00 UNV Pantoprazole Sodium 40 mg DAILY IV 05/11/24 10:00 05/29/24 09:39 40 MG Baclofen 5 mg Q8HP PRN PO 05/12/24 19:15 Nifedipine 10 mg Q6HR PO 05/13/24 18:00 05/29/24 19:01 10 MG Metoprolol Succinate 25 mg TID PO 05/13/24 14:00 05/29/24 20:49 25 MG Lisinopril 40 mg DAILY PO 05/14/24 10:00 05/29/24 09:40 40 MG Amiodarone HCl 200 mg Q12HR PO 05/15/24 10:00 05/29/24 20:48 200 MG Sodium Chloride 10 ml QSHIFT@ IV 05/18/24 22:00 05/29/24 20:50 10 ML Micafungin Sodium 100 mg/Sodium Chloride 100 ml @ 100 mls/hr DAILY IV 05/24/24 10:00 05/29/24 09:55 100 MLS/HR Hydralazine HCl 5 mg Q4HP PRN IV 05/24/24 12:00 05/24/24 13:46 5 MG Hydromorphone HCl 0.2 mg Q3HPRN PRN IV 05/25/24 13:45 05/27/24 14:16 0.2 MG Hydromorphone HCl 0.4 mg Q3HR PRN IV 05/25/24 13:45 05/29/24 11:38 0.4 MG Furosemide 40 mg DAILY IV 05/27/24 10:00 05/29/24 09:38 40 MG Sodium Acetate 20 meq/Sodium Phosphate 20 meq/ Potassium Acetate 20 meq/Potassium Phosphate 22 meq/ Magnesium Sulfate 12 meq/ Multivitamins 10 ml/Chromium/ Copper/Manganese/ Zinc 1 ml/Amino Acids/Dextrose 844 ml @ 35 mls/hr Q24H7M IV 05/28/24 22:00 05/29/24 21:59 Cancel Enoxaparin Sodium 40 mg DAILY SC 05/29/24 10:00 05/29/24 09:42 40 MG Cefpodoxime Proxetil 200 mg BID PO 05/29/24 22:00 Linezolid 600 mg BID PO 05/29/24 22:00 05/29/24 20:48 600 MG PHYSICAL EXAM: - GENERAL: Alert and oriented x 3. No acute distress. Well-nourished. - EYES: EOMI. Anicteric. HENT: Moist mucous membranes. No scleral icterus. No cervical lymphadenopathy. - LUNGS: Clear to auscultation bilaterally. No accessory muscle use. - CARDIOVASCULAR: Regular rate and rhythm. No murmur. No JVD. - ABDOMEN: Soft, non-tender and non-distended. No palpable masses. - EXTREMITIES: No edema. Non-tender.?SKIN: No rashes or lesions. Warm. - NEUROLOGIC: No focal neurological deficits. CN II-XII grossly intact, but not individually tested. - PSYCHIATRIC: Cooperative. Appropriate mood and affect. laboratory and microbiology Laboratory Tests 05/29/24 06:56 Test 05/29/24 06:56 Range/Units Serum Glucose 108 H 74-106 mg/dL Problem List/Assessment/Plan Problems(with codes): (1) Diverticulitis of intestine with perforation and abscess (2) Elevated brain natriuretic peptide (BNP) level (3) Non-STEMI (non-ST elevated myocardial infarction) (4) Elevated LFTs (5) Diverticulitis (6) Urinary tract infection (7) Cholelithiasis (8) Hiatal hernia (9) Atrial fibrillation Problem List/Assessment/Plan ID Problem List: - Acute diverticulitis - Diverticular abscess - Acute abdominal pain UTI - Elevated troponin - Hypokalemia - Morbid obesity - Diarrhea - Hypertension - Hypothyroidism Assessment: This is a 73 y.o. female with a past medical history of hypertension, hyperlipidemia, kidney transplant, hypothyroidism, morbid obesity, and end-stage renal disease who presents with lower abdominal pain on May 09. The pain was nonradiating and associated with nausea, diarrhea, and poor appetite. The patient visited [facility] urgent care on May 09 for unprovoked onset of persisting symptoms except with the exception of diarrhea for the past days. The patient reported experiencing urinary retention, constipation, and fever initially for 2 days, then it subsided on its own. CT abdomen revealed diverticulitis with air in the retroperitoneum, findings suggestive of abscess, cholestasis, and small hiatal hernia. Chest X-ray showed no acute findings, and HIDA scan showed nonvisualization of the gallbladder suggestive of cystic duct obstruction. Repeat CT abdomen on May 15 showed moderate fat stranding and induration of the central mesentery, with a 6.5 by 6.2 cm collection of air and minimal fluid suggestive of acute diverticulitis with rupture and associated abscess. The patient underwent IR drainage of the pelvic abscess on July 16. Culture revealed E. coli and Proteus mirabilis, both sensitive to ANCEF and Unison. The patient has been on ceftriaxone and Flagyl. 05/21: appears to require prolonged TPN needs , pharmacy is not providing ceftazidime. 05/22: patient has had over 135 ccs of drainage , likely sufficient for antibiotics to be appropriate monotherapy for treatment 05/23: white count has normalized, microbiology shows E Coli, proteus , enterococcus and yeast. the E Coli and proteus are sensitive to zosyn. Ct scan shos a persistent abscess in the central pelvis 7.76 by 6.6 . pictile cathedeter should be removed and a new one placed . does not appear that patient would have any drug contraindications to vancomycin or fluconazol and start by IV because patient is NPO 05/24: she had a Ct guided drainage adjustment and pic tail was placed on her abdomen on a different location , unlcear how much drainage was relieved from procedure. New piccline placed. White count continues to downtred 05/25:white count coming down , more output coming from the drain. 05/26: Ct abdomen and pelvis doen and shows improved sigmoid diverticulitis and the catheter is sen in the midline abdomen with fluid collection in 3.9 cm , better from last which was 7.[address] Dumont is recommending close observation and IV antibiotics , agree with plan 05/29: Patients daughter requested we stop TPN , so that has been stopped . Patient is continuing on clear liquid idet as of 2 days and slowly transitioning oral antibiotics Plan: - continue micafungen - stop vancomycin , switch to oral linazolid fpr another 21 days - switch to oral cefpadoxine and stop ceftriaxone - Monitor drainage and consider additional IR drainage or surgical I&D if necessary - Discuss the need for extended IV antibiotic therapy, potentially 30 days with follow up CT abd pelvis afterwards Isolation Precautions: standard Assessment and plan were discussed with the patient as written above. Plan is subject to change pending incorporation of new incoming information/diagnostics. Updates may be added as an addendum at the bottom (OR TOP) of this note. Thank you for the interesting consult. ID will continue to follow. Please contact Infectious Disease for any questions or concerns. Quincy Wooten M.D. [facility] Plan discussed with: Other Dietary Evaluation Review Comments: 1) Advance pt diet when medically feasible to a [id number]/[id number] diet 2) Continue current plan of care Expected Outcomes/Goals: F/U in 3-5 days QUINCY WOOTEN MD May 29, 2024 22:03
--- NOTE | 2024-05-29 22:50 | DVHPN2 ---
Progress Note - Dictate Date Seen: May 29, 2024 Medical Necessity Reason Pt with a Central, PICC or Fol: Yes Subjective Patient was seen and evaluated in follow up. No overnight events. Patient reports feeing better today. H&H stable. [facility] 1.21. Patient is continued on IV antibiotics. vital signs Vital Sign Date Time Temp Pulse Resp B/P (MAP) Pulse Ox O2 Delivery O2 Flow Rate FiO2 05/29/24 20:49 132/57 05/29/24 20:00 Room Air* 0 21 05/29/24 17:00 97.9 87 19 93 97.9 Total Intake and Output 05/28/24 05/28/24 05/29/24 15:00 23:00 07:00 Intake Total 100 ml 1550 ml 200 ml Balance 100 ml 1550 ml 200 ml medications Current Medications Medications Dose Ordered Sig/Lanette Route Start Time Stop Time Status Last Admin Dose Admin Atenolol 25 mg BID PO 05/10/24 10:00 Hold 05/10/24 21:38 25 MG Levothyroxine Sodium 125 mcg QAM@0600 PO 05/10/24 06:00 05/29/24 05:07 125 MCG Atorvastatin Calcium 40 mg HS PO 05/10/24 22:00 05/29/24 20:49 40 MG Ondansetron HCl 4 mg Q4HP PRN IV 05/09/24 23:00 Hold Acetaminophen 650 mg Q6HP PRN PO 05/09/24 23:00 05/23/24 15:13 650 MG Nitroglycerin 0.4 mg Q5MINP PRN SL 05/09/24 23:00 Enoxaparin Sodium 130 mg Q12HR SC 05/10/24 10:00 UNV Pantoprazole Sodium 40 mg DAILY IV 05/11/24 10:00 05/29/24 09:39 40 MG Baclofen 5 mg Q8HP PRN PO 05/12/24 19:15 Nifedipine 10 mg Q6HR PO 05/13/24 18:00 05/29/24 19:01 10 MG Metoprolol Succinate 25 mg TID PO 05/13/24 14:00 05/29/24 20:49 25 MG Lisinopril 40 mg DAILY PO 05/14/24 10:00 05/29/24 09:40 40 MG Amiodarone HCl 200 mg Q12HR PO 05/15/24 10:00 05/29/24 20:48 200 MG Sodium Chloride 10 ml QSHIFT@10,22 IV 05/18/24 22:00 05/29/24 20:50 10 ML Micafungin Sodium 100 mg/Sodium Chloride 100 ml @ 100 mls/hr DAILY IV 05/24/24 10:00 05/29/24 09:55 100 MLS/HR Hydralazine HCl 5 mg Q4HP PRN IV 05/24/24 12:00 05/24/24 13:46 5 MG Hydromorphone HCl 0.2 mg Q3HPRN PRN IV 05/25/24 13:45 05/27/24 14:16 0.2 MG Hydromorphone HCl 0.4 mg Q3HR PRN IV 05/25/24 13:45 05/29/24 11:38 0.4 MG Furosemide 40 mg DAILY IV 05/27/24 10:00 05/29/24 09:38 40 MG Sodium Acetate 20 meq/Sodium Phosphate 20 meq/ Potassium Acetate 20 meq/Potassium Phosphate 22 meq/ Magnesium Sulfate 12 meq/ Multivitamins 10 ml/Chromium/ Copper/Manganese/ Zinc 1 ml/Amino Acids/Dextrose 844 ml @ 35 mls/hr Q24H7M IV 05/28/24 22:00 05/29/24 21:59 Cancel Enoxaparin Sodium 40 mg DAILY SC 05/29/24 10:00 05/29/24 09:42 40 MG Cefpodoxime Proxetil 200 mg BID PO 05/29/24 22:00 Linezolid 600 mg BID PO 05/29/24 22:00 05/29/24 20:48 600 MG objective GENERAL: Awake, alert, oriented. Morbidly obese. LUNGS: Clear. CARDIOVASCULAR: Tachycardic. ABDOMEN: Soft, tender in the left lower quadrant, nondistended, bowel sounds present all 4 quadrants, no guarding. laboratory and microbiology Laboratory Tests 05/29/24 06:56 Test 05/29/24 06:56 Range/Units Serum Glucose 108 H 74-106 mg/dL Problem List Atrial fibrillation with rapid ventricular response. Acute diverticulitis with microperforation. Morbid obesity. Profound leukocytosis. Acute abdominal pain. Elevated troponin. Hypokalemia. UTI. Morbid obesity. Diarrhea. Hypertension. Hypothyroidism. Assessment/Plan Continued all current supportive medical care. Amiodarone. Lipitor, Metoprolol. IV antibiotics as ordered. Diuretics with Lasix. Dilaudid for pain management. Synthroid. GI prophylactics. Lisinopril, Nifedipine. Additional plan as per the hospital course. Dietary Evaluation Review Comments: 1) Advance pt diet when medically feasible to a [id number] diet 2) Continue current plan of care Expected Outcomes/Goals: F/U in 3-5 days Plan discussed with: Patient TRESA MCFARLANE MD May 29, 2024 22:50
[2024-05-30] VITALS (8 sets, daily range): BP systolic 111–144; BP diastolic 49–79; PULSE 74–83; RESP 18–21; TEMP 97.7–98; O2SAT 93–96
[2024-05-30 06:04] LABS: Eosinophils # (auto) 0.4 10 ^3/uL (0-0.8); Eosinophils % (auto) 8.4 % (0.0-7.0); Monocytes # (auto) 0.7 10 ^3/uL (0-1.3); Neutrophils # (auto) 2.4 10 ^3/uL (1.6-8.6); Nucleated Red Blood Cells % 0.1 %; White Blood Cell 4.8 10^3/uL (4.4-10.8)
[2024-05-30 06:07] LABS: Basophils # (auto) 0.1 10 ^3/uL (0-0.2); Hematocrit 32.6 % (36.0-46.0); Hemoglobin 11.2 g/dL (12.2-16.2); Lymphocytes # (auto) 1.2 10 ^3/uL (0.4-5.4); Mean Corpuscular Hemoglobin 30.7 pg (28.0-32.0); Mean Corpuscular Hgb Conc. 34.2 g/dL (32.0-36.0); Mean Corpuscular Volume 89.6 fL (80.0-100.0); Monocytes % (auto) 14.7 % (0.0-12.0); Neutrophils % (auto) 49.9 % (37.0-80.0); Platelet Count (auto) 439 10^3/uL (140-450); Red Blood Cells 3.63 10^6/uL (4.0-5.20); Red Cell Distribution Width 15.5 % (11.8-14.3)
--- NOTE | 2024-05-30 20:34 | DVHPN2 ---
Progress Note - Dictate Date Seen: May 30, 2024 Medical Necessity Reason Pt with a Central, PICC or Fol: Yes Subjective Patient was seen and evaluated in follow up. No acute events overnight. Patient denies any abdominal pain. Tolerating diet. Noted with skin tear on left lower abdomen. vital signs Vital Sign Date Time Temp Pulse Resp B/P (MAP) Pulse Ox O2 Delivery O2 Flow Rate FiO2 05/30/24 19:02 131/67 05/30/24 16:45 97.9 74 20 96 97.9 05/30/24 08:00 Room Air* 0 21 Total Intake and Output 05/29/24 05/29/24 05/30/24 15:00 23:00 07:00 Intake Total 250 ml 600 ml 125 ml Balance 250 ml 600 ml 125 ml medications Current Medications Medications Dose Ordered Sig/Lanette Route Start Time Stop Time Status Last Admin Dose Admin Atenolol 25 mg BID PO 05/10/24 10:00 Hold 05/10/24 21:38 25 MG Levothyroxine Sodium 125 mcg QAM@0600 PO 05/10/24 06:00 05/30/24 05:47 125 MCG Atorvastatin Calcium 40 mg HS PO 05/10/24 22:00 05/29/24 20:49 40 MG Ondansetron HCl 4 mg Q4HP PRN IV 05/09/24 23:00 Hold Acetaminophen 650 mg Q6HP PRN PO 05/09/24 23:00 05/23/24 15:13 650 MG Nitroglycerin 0.4 mg Q5MINP PRN SL 05/09/24 23:00 Enoxaparin Sodium 130 mg Q12HR SC 05/10/24 10:00 UNV Pantoprazole Sodium 40 mg DAILY IV 05/11/24 10:00 05/30/24 10:06 40 MG Baclofen 5 mg Q8HP PRN PO 05/12/24 19:15 Nifedipine 10 mg Q6HR PO 05/13/24 18:00 05/30/24 19:02 10 MG Metoprolol Succinate 25 mg TID PO 05/13/24 14:00 05/30/24 14:31 25 MG Lisinopril 40 mg DAILY PO 05/14/24 10:00 05/30/24 10:05 40 MG Amiodarone HCl 200 mg Q12HR PO 05/15/24 10:00 05/30/24 10:05 200 MG Sodium Chloride 10 ml QSHIFT@10,22 IV 05/18/24 22:00 05/30/24 10:04 10 ML Micafungin Sodium 100 mg/Sodium Chloride 100 ml @ 100 mls/hr DAILY IV 05/24/24 10:00 05/30/24 10:06 100 MLS/HR Hydralazine HCl 5 mg Q4HP PRN IV 05/24/24 12:00 05/24/24 13:46 5 MG Hydromorphone HCl 0.2 mg Q3HPRN PRN IV 05/25/24 13:45 05/27/24 14:16 0.2 MG Hydromorphone HCl 0.4 mg Q3HR PRN IV 05/25/24 13:45 05/30/24 11:20 0.4 MG Furosemide 40 mg DAILY IV 05/27/24 10:00 05/30/24 10:05 40 MG Sodium Acetate 20 meq/Sodium Phosphate 20 meq/ Potassium Acetate 20 meq/Potassium Phosphate 22 meq/ Magnesium Sulfate 12 meq/ Multivitamins 10 ml/Chromium/ Copper/Manganese/ Zinc 1 ml/Amino Acids/Dextrose 844 ml @ 35 mls/hr Q24H7M IV 05/28/24 22:00 05/29/24 21:59 Cancel Enoxaparin Sodium 40 mg DAILY SC 05/29/24 10:00 05/30/24 10:04 40 MG Cefpodoxime Proxetil 200 mg BID PO 05/29/24 22:00 05/30/24 10:03 200 MG Linezolid 600 mg BID PO 05/29/24 22:00 05/30/24 10:06 600 MG Enteral Nutritional Formula 240 ml TIDWM PO 05/31/24 08:00 objective Physical exam: Vitals and nursing notes reviewed. General: In no acute distress, morbidly obese. HEENT: Normocephalic atraumatic, mucous membranes moist and pink. Neck: Cervical and supraclavicular nodes normal without enlargement. Pulmonary: Clear to auscultation and percussion bilaterally. Cardiac: RRR. No murmur. Abdomen: Soft, tender, nondistended, bowel sounds present all 4 quadrants, no guarding. Musculoskeletal: No deformity. Neuro: Cranial nerves II through XII grossly intact, normal affect and speech, no focal motor deficits. Skin: Warm, dry, normal color and texture, no rash. Skin tear on left lower abdomen. laboratory and microbiology Laboratory Tests 05/30/24 05:05 05/29/24 06:56 Test 05/29/24 06:56 Range/Units Serum Glucose 108 H 74-106 mg/dL Problem List Acute diverticulitis Acute abdominal pain Elevated troponin Hypokalemia UTI Morbid obesity Assessment/Plan Continue all current supportive medical care. Surgery, GI and Cardiology consulted. S/p CT-guided drainage of abscess with IR 05/15. Replacement of pigtail 05/24. consult for [facility] for IV Abx- Micafungin 100 mg IV daily x 21 days and PICC line management. Wound eval/treat to skin tear on abdomen. IV antibiotics per ID. Nutritional support with TPN per pharmacy. Continued on clear liquid diet. Lasix 40 mg IV daily. Amiodarone 200 mg PO q12h. Lisinopril 40 mg PO daily. Nifedipine 10 mg PO q6h. Levothyroxine 125 mcg PO QAM. DVT/GI prophylaxis. Pain management prn. Additional plan as per the hospital course. Dietary Evaluation Review Comments: 1) Advance pt diet when medically feasible to a [id number]/[id number] diet 2) Continue current plan of care Expected Outcomes/Goals: F/U in 3-5 days Plan discussed with: Patient, Other (RN) SMITHA MCFARLANE DO May 30, 2024 20:34
[2024-05-30] MEDS: FLUCONAZOLE 100 MG TAB PO ONE (22:11)
--- NOTE | 2024-05-30 22:26 | DVHPN2 ---
Consult Progress Note Date Seen: May 30, 2024 Subjective Patient reports: Feels better (tolerating diet , no issues with oral antibiotics , 30ccs from the EB drain ) Objective vital signs Vital Sign Date Time Temp Pulse Resp B/P (MAP) Pulse Ox O2 Delivery O2 Flow Rate FiO2 05/30/24 20:38 98.0 76 21 122/49 (73) 93 98.0 05/30/24 08:00 Room Air* 0 21 Total Intake and Output 05/29/24 05/29/24 05/30/24 15:00 23:00 07:00 Intake Total 250 ml 600 ml 125 ml Balance 250 ml 600 ml 125 ml medications Current Medications Medications Dose Ordered Sig/Lanette Route Start Time Stop Time Status Last Admin Dose Admin Atenolol 25 mg BID PO 05/10/24 10:00 Hold 05/10/24 21:38 25 MG Levothyroxine Sodium 125 mcg QAM@0600 PO 05/10/24 06:00 05/30/24 05:47 125 MCG Atorvastatin Calcium 40 mg HS PO 05/10/24 22:00 05/29/24 20:49 40 MG Ondansetron HCl 4 mg Q4HP PRN IV 05/09/24 23:00 Hold Acetaminophen 650 mg Q6HP PRN PO 05/09/24 23:00 05/23/24 15:13 650 MG Nitroglycerin 0.4 mg Q5MINP PRN SL 05/09/24 23:00 Enoxaparin Sodium 130 mg Q12HR SC 05/10/24 10:00 UNV Pantoprazole Sodium 40 mg DAILY IV 05/11/24 10:00 05/30/24 10:06 40 MG Baclofen 5 mg Q8HP PRN PO 05/12/24 19:15 Nifedipine 10 mg Q6HR PO 05/13/24 18:00 05/30/24 19:02 10 MG Metoprolol Succinate 25 mg TID PO 05/13/24 14:00 05/30/24 14:31 25 MG Lisinopril 40 mg DAILY PO 05/14/24 10:00 05/30/24 10:05 40 MG Amiodarone HCl 200 mg Q12HR PO 05/15/24 10:00 05/30/24 10:05 200 MG Sodium Chloride 10 ml QSHIFT@ IV 05/18/24 22:00 05/30/24 10:04 10 ML Hydralazine HCl 5 mg Q4HP PRN IV 05/24/24 12:00 05/24/24 13:46 5 MG Hydromorphone HCl 0.2 mg Q3HPRN PRN IV 05/25/24 13:45 05/27/24 14:16 0.2 MG Hydromorphone HCl 0.4 mg Q3HR PRN IV 05/25/24 13:45 05/30/24 11:20 0.4 MG Furosemide 40 mg DAILY IV 05/27/24 10:00 05/30/24 10:05 40 MG Sodium Acetate 20 meq/Sodium Phosphate 20 meq/ Potassium Acetate 20 meq/Potassium Phosphate 22 meq/ Magnesium Sulfate 12 meq/ Multivitamins 10 ml/Chromium/ Copper/Manganese/ Zinc 1 ml/Amino Acids/Dextrose 844 ml @ 35 mls/hr Q24H7M IV 05/28/24 22:00 05/29/24 21:59 Cancel Enoxaparin Sodium 40 mg DAILY SC 05/29/24 10:00 05/30/24 10:04 40 MG Cefpodoxime Proxetil 200 mg BID PO 05/29/24 22:00 05/30/24 10:03 200 MG Linezolid 600 mg BID PO 05/29/24 22:00 05/30/24 10:06 600 MG Enteral Nutritional Formula 240 ml TIDWM PO 05/31/24 08:00 Fluconazole 400 mg DAILY PO 05/31/24 10:00 PHYSICAL EXAM: - GENERAL: Alert and oriented x 3. No acute distress. Well-nourished. - EYES: EOMI. Anicteric. HENT: Moist mucous membranes. No scleral icterus. No cervical lymphadenopathy. - LUNGS: Clear to auscultation bilaterally. No accessory muscle use. - CARDIOVASCULAR: Regular rate and rhythm. No murmur. No JVD. - ABDOMEN: Soft, non-tender and non-distended. No palpable masses. - EXTREMITIES: No edema. Non-tender.?SKIN: No rashes or lesions. Warm. - NEUROLOGIC: No focal neurological deficits. CN II-XII grossly intact, but not individually tested. - PSYCHIATRIC: Cooperative. Appropriate mood and affect. laboratory and microbiology Laboratory Tests 05/30/24 05:05 05/29/24 06:56 Test 05/29/24 06:56 Range/Units Serum Glucose 108 H 74-106 mg/dL Problem List/Assessment/Plan Problems(with codes): (1) Atrial fibrillation (2) Hiatal hernia (3) Cholelithiasis (4) Urinary tract infection (5) Diverticulitis (6) Elevated LFTs (7) Non-STEMI (non-ST elevated myocardial infarction) (8) Elevated brain natriuretic peptide (BNP) level (9) Diverticulitis of intestine with perforation and abscess Problem List/Assessment/Plan ID Problem List: - Acute diverticulitis - Diverticular abscess - Acute abdominal pain UTI - Elevated troponin - Hypokalemia - Morbid obesity - Diarrhea - Hypertension - Hypothyroidism Assessment: This is a 73 y.o. female with a past medical history of hypertension, hyperlipidemia, kidney transplant, hypothyroidism, morbid obesity, and end-stage renal disease who presents with lower abdominal pain on May 09. The pain was nonradiating and associated with nausea, diarrhea, and poor appetite. The patient visited [facility] urgent care on May 09 for unprovoked onset of persisting symptoms except with the exception of diarrhea for the past days. The patient reported experiencing urinary retention, constipation, and fever initially for 2 days, then it subsided on its own. CT abdomen revealed diverticulitis with air in the retroperitoneum, findings suggestive of abscess, cholestasis, and small hiatal hernia. Chest X-ray showed no acute findings, and HIDA scan showed nonvisualization of the gallbladder suggestive of cystic duct obstruction. Repeat CT abdomen on May 15 showed moderate fat stranding and induration of the central mesentery, with a 6.5 by 6.2 cm collection of air and minimal fluid suggestive of acute diverticulitis with rupture and associated abscess. The patient underwent IR drainage of the pelvic abscess on July 16. Culture revealed E. coli and Proteus mirabilis, both sensitive to ANCEF and Unison. The patient has been on ceftriaxone and Flagyl. 05/21: appears to require prolonged TPN needs , pharmacy is not providing ceftazidime. 05/22: patient has had over 135 ccs of drainage , likely sufficient for antibiotics to be appropriate monotherapy for treatment 05/23: white count has normalized, microbiology shows E Coli, proteus , enterococcus and yeast. the E Coli and proteus are sensitive to zosyn. Ct scan shos a persistent abscess in the central pelvis 7.76 by 6.6 . pictile cathedeter should be removed and a new one placed . does not appear that patient would have any drug contraindications to vancomycin or fluconazol and start by IV because patient is NPO 05/24: she had a Ct guided drainage adjustment and pic tail was placed on her abdomen on a different location , unlcear how much drainage was relieved from procedure. New piccline placed. White count continues to downtred 05/25:white count coming down , more output coming from the drain. 05/26: Ct abdomen and pelvis doen and shows improved sigmoid diverticulitis and the catheter is sen in the midline abdomen with fluid collection in 3.9 cm , better from last which was 7.[address] Dumont is recommending close observation and IV antibiotics , agree with plan 05/29: Patients daughter requested we stop TPN , so that has been stopped . Patient is continuing on clear liquid idet as of 2 days and slowly transitioning oral antibiotics 05/30: Doing well on oral therapy , is off TPN Plan: - Switch micafungen to oral fluconazol 400 daily for 21 days - oral linazolid fpr another 21 days - oral cefpadoxine for 21 days - Patient drain management will be managed by general surgery - defer to general surgery for ongoing needs for drainage, will need to follow general surgery as outpatient - Follow up with infectious disease in [address] of abdomen and pelvis done Isolation Precautions: standard Assessment and plan were discussed with the patient as written above. Plan is subject to change pending incorporation of new incoming information/diagnostics. Updates may be added as an addendum at the bottom (OR TOP) of this note. Thank you for the interesting consult. ID will continue to follow. Please contact Infectious Disease for any questions or concerns. Mellissa Jack Medical Plan discussed with: Other Dietary Evaluation Review Comments: 1) Advance pt diet when medically feasible to a [id number] diet 2) Continue current plan of care Expected Outcomes/Goals: F/U in 3-5 days QUINCY HURST MD May 30, 2024 22:25
[2024-05-31] VITALS (8 sets, daily range): BP systolic 105–151; BP diastolic 54–68; PULSE 73–83; RESP 16–20; TEMP 97.1–98.5; O2SAT 85–98
--- NOTE | 2024-05-31 01:05 | DVHPN2 ---
Progress Note - Dictate Date Seen: May 30, 2024 Medical Necessity Reason Pt with a Central, PICC or Fol: Yes Subjective Patient was seen and evaluated in follow up. No overnight events. Patient is complaining of generalized pain. Patient is tolerating diet. Patient remains on IV antibiotic coverage. vital signs Vital Sign Date Time Temp Pulse Resp B/P (MAP) Pulse Ox O2 Delivery O2 Flow Rate FiO2 05/30/24 12:27 140/46 05/30/24 11:50 14 75 05/30/24 08:21 97.7 93 97.7 05/30/24 08:00 Room Air* 0 21 Total Intake and Output 05/29/24 05/29/24 05/30/24 15:00 23:00 07:00 Intake Total 250 ml 600 ml 125 ml Balance 250 ml 600 ml 125 ml medications Current Medications Medications Dose Ordered Sig/Lanette Route Start Time Stop Time Status Last Admin Dose Admin Atenolol 25 mg BID PO 05/10/24 10:00 Hold 05/10/24 21:38 25 MG Levothyroxine Sodium 125 mcg QAM@0600 PO 05/10/24 06:00 05/30/24 05:47 125 MCG Atorvastatin Calcium 40 mg HS PO 05/10/24 22:00 05/29/24 20:49 40 MG Ondansetron HCl 4 mg Q4HP PRN IV 05/09/24 23:00 Hold Acetaminophen 650 mg Q6HP PRN PO 05/09/24 23:00 05/23/24 15:13 650 MG Nitroglycerin 0.4 mg Q5MINP PRN SL 05/09/24 23:00 Enoxaparin Sodium 130 mg Q12HR SC 05/10/24 10:00 UNV Pantoprazole Sodium 40 mg DAILY IV 05/11/24 10:00 05/30/24 10:06 40 MG Baclofen 5 mg Q8HP PRN PO 05/12/24 19:15 Nifedipine 10 mg Q6HR PO 05/13/24 18:00 05/30/24 12:27 10 MG Metoprolol Succinate 25 mg TID PO 05/13/24 14:00 05/30/24 05:48 25 MG Lisinopril 40 mg DAILY PO 05/14/24 10:00 05/30/24 10:05 40 MG Amiodarone HCl 200 mg Q12HR PO 05/15/24 10:00 05/30/24 10:05 200 MG Sodium Chloride 10 ml QSHIFT@10,22 IV 05/18/24 22:00 05/30/24 10:04 10 ML Micafungin Sodium 100 mg/Sodium Chloride 100 ml @ 100 mls/hr DAILY IV 05/24/24 10:00 05/30/24 10:06 100 MLS/HR Hydralazine HCl 5 mg Q4HP PRN IV 05/24/24 12:00 05/24/24 13:46 5 MG Hydromorphone HCl 0.2 mg Q3HPRN PRN IV 05/25/24 13:45 05/27/24 14:16 0.2 MG Hydromorphone HCl 0.4 mg Q3HR PRN IV 05/25/24 13:45 05/30/24 11:20 0.4 MG Furosemide 40 mg DAILY IV 05/27/24 10:00 05/30/24 10:05 40 MG Sodium Acetate 20 meq/Sodium Phosphate 20 meq/ Potassium Acetate 20 meq/Potassium Phosphate 22 meq/ Magnesium Sulfate 12 meq/ Multivitamins 10 ml/Chromium/ Copper/Manganese/ Zinc 1 ml/Amino Acids/Dextrose 844 ml @ 35 mls/hr Q24H7M IV 05/28/24 22:00 05/29/24 21:59 Cancel Enoxaparin Sodium 40 mg DAILY SC 05/29/24 10:00 05/30/24 10:04 40 MG Cefpodoxime Proxetil 200 mg BID PO 05/29/24 22:00 05/30/24 10:03 200 MG Linezolid 600 mg BID PO 05/29/24 22:00 05/30/24 10:06 600 MG objective GENERAL: Awake, alert, oriented. Morbidly obese. LUNGS: Clear. CARDIOVASCULAR: Tachycardic. ABDOMEN: Soft, tender in the left lower quadrant, nondistended, bowel sounds present all 4 quadrants, no guarding. laboratory and microbiology Laboratory Tests 05/30/24 05:05 05/29/24 06:56 Test 05/29/24 06:56 Range/Units Serum Glucose 108 H 74-106 mg/dL Problem List Atrial fibrillation with rapid ventricular response. Acute diverticulitis with microperforation. Morbid obesity. Profound leukocytosis. Acute abdominal pain. Elevated troponin. Hypokalemia. UTI. Morbid obesity. Diarrhea. Hypertension. Hypothyroidism. Assessment/Plan Continued all current supportive medical care. Amiodarone. Lipitor, Metoprolol. IV antibiotics as ordered. Diuretics with Lasix. Dilaudid for pain management. Synthroid. GI prophylactics. Lisinopril, Nifedipine. Additional plan as per the hospital course. Dietary Evaluation Review Comments: 1) Advance pt diet when medically feasible to a [id number] diet 2) Continue current plan of care Expected Outcomes/Goals: F/U in 3-5 days Plan discussed with: Patient TRESA MCFARLANE MD May 30, 2024 12:58
[2024-05-31] MEDS: ENSURE CLEAR Mixed Berry 8oz Carton PO SCH (08:00)
[2024-05-31] MEDS: FLUCONAZOLE 100 MG TAB PO SCH (11:18)
--- NOTE | 2024-05-31 15:36 | DVHPN2 ---
Progress Note - Dictate Date Seen: May 31, 2024 Medical Necessity Reason Pt with a Central, PICC or Fol: Yes Subjective Patient was seen and evaluated in follow up. No overnight events. Patient reports feeling better. Patient denies any cardiac symptoms. vital signs Vital Sign Date Time Temp Pulse Resp B/P (MAP) Pulse Ox O2 Delivery O2 Flow Rate FiO2 05/31/24 08:40 98.0 73 16 143/54 (83) 93 98.0 05/30/24 20:00 Room Air* 0 21 Total Intake and Output 05/30/24 05/30/24 05/31/24 15:00 23:00 07:00 Intake Total 100 ml 1000 ml 600 ml Balance 100 ml 1000 ml 600 ml medications Current Medications Medications Dose Ordered Sig/Lanette Route Start Time Stop Time Status Last Admin Dose Admin Atenolol 25 mg BID PO 05/10/24 10:00 Hold 05/10/24 21:38 25 MG Levothyroxine Sodium 125 mcg QAM@0600 PO 05/10/24 06:00 05/31/24 05:45 125 MCG Atorvastatin Calcium 40 mg HS PO 05/10/24 22:00 05/30/24 22:11 40 MG Ondansetron HCl 4 mg Q4HP PRN IV 05/09/24 23:00 Hold Acetaminophen 650 mg Q6HP PRN PO 05/09/24 23:00 05/23/24 15:13 650 MG Nitroglycerin 0.4 mg Q5MINP PRN SL 05/09/24 23:00 Enoxaparin Sodium 130 mg Q12HR SC 05/10/24 10:00 UNV Pantoprazole Sodium 40 mg DAILY IV 05/11/24 10:00 05/30/24 10:06 40 MG Baclofen 5 mg Q8HP PRN PO 05/12/24 19:15 Nifedipine 10 mg Q6HR PO 05/13/24 18:00 05/31/24 05:44 10 MG Metoprolol Succinate 25 mg TID PO 05/13/24 14:00 05/31/24 05:45 25 MG Lisinopril 40 mg DAILY PO 05/14/24 10:00 05/30/24 10:05 40 MG Amiodarone HCl 200 mg Q12HR PO 05/15/24 10:00 05/30/24 22:11 200 MG Sodium Chloride 10 ml QSHIFT@10,22 IV 05/18/24 22:00 05/30/24 22:11 10 ML Hydralazine HCl 5 mg Q4HP PRN IV 05/24/24 12:00 05/24/24 13:46 5 MG Hydromorphone HCl 0.2 mg Q3HPRN PRN IV 05/25/24 13:45 05/27/24 14:16 0.2 MG Hydromorphone HCl 0.4 mg Q3HR PRN IV 05/25/24 13:45 05/30/24 11:20 0.4 MG Furosemide 40 mg DAILY IV 05/27/24 10:00 05/30/24 10:05 40 MG Sodium Acetate 20 meq/Sodium Phosphate 20 meq/ Potassium Acetate 20 meq/Potassium Phosphate 22 meq/ Magnesium Sulfate 12 meq/ Multivitamins 10 ml/Chromium/ Copper/Manganese/ Zinc 1 ml/Amino Acids/Dextrose 844 ml @ 35 mls/hr Q24H7M IV 05/28/24 22:00 05/29/24 21:59 Cancel Enoxaparin Sodium 40 mg DAILY SC 05/29/24 10:00 05/30/24 10:04 40 MG Cefpodoxime Proxetil 200 mg BID PO 05/29/24 22:00 05/30/24 22:14 200 MG Linezolid 600 mg BID PO 05/29/24 22:00 05/30/24 22:12 600 MG Enteral Nutritional Formula 240 ml TIDWM PO 05/31/24 08:00 Fluconazole 400 mg DAILY PO 05/31/24 10:00 objective GENERAL: Awake, alert, oriented. Morbidly obese. LUNGS: Clear. CARDIOVASCULAR: Tachycardic. ABDOMEN: Soft, tender in the left lower quadrant, nondistended, bowel sounds present all 4 quadrants, no guarding. laboratory and microbiology Laboratory Tests 05/30/24 05:05 05/29/24 06:56 Test 05/29/24 06:56 Range/Units Serum Glucose 108 H 74-106 mg/dL Problem List Atrial fibrillation with rapid ventricular response. Acute diverticulitis with microperforation. Morbid obesity. Profound leukocytosis. Acute abdominal pain. Elevated troponin. Hypokalemia. UTI. Morbid obesity. Diarrhea. Hypertension. Hypothyroidism. Assessment/Plan Continued all current supportive medical care. Amiodarone. Lipitor, Metoprolol. IV antibiotics as ordered. Diuretics with Lasix. Dilaudid for pain management. Synthroid. GI prophylactics. Lisinopril, Nifedipine. Additional plan as per the hospital course. Dietary Evaluation Review Comments: 1) Advance pt diet when medically feasible to a [id number] diet 2) Continue current plan of care Expected Outcomes/Goals: F/U in 3-5 days Plan discussed with: Patient TRESA MCFARLANE MD May 31, 2024 11:19
--- NOTE | 2024-05-31 21:01 | DVHPN2 ---
Progress Note - Dictate Date Seen: May 31, 2024 Medical Necessity Reason Pt with a Central, PICC or Fol: Yes Subjective Patient was seen and evaluated in follow up. No acute events overnight. Patient denies any new complaints. Tolerating diet. Awaiting arrangements for [facility]. vital signs Vital Sign Date Time Temp Pulse Resp B/P (MAP) Pulse Ox O2 Delivery O2 Flow Rate FiO2 05/31/24 18:43 151/61 05/31/24 17:13 97.1 74 17 91 97.1 05/31/24 08:00 Room Air* 0 21 Total Intake and Output 05/30/24 05/30/24 05/31/24 15:00 23:00 07:00 Intake Total 100 ml 1000 ml 600 ml Balance 100 ml 1000 ml 600 ml medications Current Medications Medications Dose Ordered Sig/Lanette Route Start Time Stop Time Status Last Admin Dose Admin Atenolol 25 mg BID PO 05/10/24 10:00 Hold 05/10/24 21:38 25 MG Levothyroxine Sodium 125 mcg QAM@0600 PO 05/10/24 06:00 05/31/24 05:45 125 MCG Atorvastatin Calcium 40 mg HS PO 05/10/24 22:00 05/30/24 22:11 40 MG Ondansetron HCl 4 mg Q4HP PRN IV 05/09/24 23:00 Hold Acetaminophen 650 mg Q6HP PRN PO 05/09/24 23:00 05/23/24 15:13 650 MG Nitroglycerin 0.4 mg Q5MINP PRN SL 05/09/24 23:00 Enoxaparin Sodium 130 mg Q12HR SC 05/10/24 10:00 UNV Pantoprazole Sodium 40 mg DAILY IV 05/11/24 10:00 05/31/24 11:21 40 MG Baclofen 5 mg Q8HP PRN PO 05/12/24 19:15 Nifedipine 10 mg Q6HR PO 05/13/24 18:00 05/31/24 18:43 10 MG Metoprolol Succinate 25 mg TID PO 05/13/24 14:00 05/31/24 14:45 25 MG Lisinopril 40 mg DAILY PO 05/14/24 10:00 05/31/24 11:19 40 MG Amiodarone HCl 200 mg Q12HR PO 05/15/24 10:00 05/31/24 11:20 200 MG Sodium Chloride 10 ml QSHIFT@10,22 IV 05/18/24 22:00 05/31/24 11:21 10 ML Hydralazine HCl 5 mg Q4HP PRN IV 05/24/24 12:00 05/24/24 13:46 5 MG Hydromorphone HCl 0.2 mg Q3HPRN PRN IV 05/25/24 13:45 05/27/24 14:16 0.2 MG Hydromorphone HCl 0.4 mg Q3HR PRN IV 05/25/24 13:45 05/31/24 11:23 0.4 MG Furosemide 40 mg DAILY IV 05/27/24 10:00 05/31/24 11:21 40 MG Sodium Acetate 20 meq/Sodium Phosphate 20 meq/ Potassium Acetate 20 meq/Potassium Phosphate 22 meq/ Magnesium Sulfate 12 meq/ Multivitamins 10 ml/Chromium/ Copper/Manganese/ Zinc 1 ml/Amino Acids/Dextrose 844 ml @ 35 mls/hr Q24H7M IV 05/28/24 22:00 05/29/24 21:59 Cancel Enoxaparin Sodium 40 mg DAILY SC 05/29/24 10:00 05/31/24 11:22 40 MG Cefpodoxime Proxetil 200 mg BID PO 05/29/24 22:00 05/31/24 11:40 200 MG Linezolid 600 mg BID PO 05/29/24 22:00 05/31/24 11:20 600 MG Enteral Nutritional Formula 240 ml TIDWM PO 05/31/24 08:00 05/31/24 18:16 240 ML Fluconazole 400 mg DAILY PO 05/31/24 10:00 05/31/24 11:18 400 MG objective Physical exam: Vitals and nursing notes reviewed. General: In no acute distress, morbidly obese. HEENT: Normocephalic atraumatic, mucous membranes moist and pink. Neck: Cervical and supraclavicular nodes normal without enlargement. Pulmonary: Clear to auscultation and percussion bilaterally. Cardiac: RRR. No murmur. Abdomen: Soft, tender, nondistended, bowel sounds present all 4 quadrants, no guarding. Musculoskeletal: No deformity. Neuro: Cranial nerves II through XII grossly intact, normal affect and speech, no focal motor deficits. Skin: Warm, dry, normal color and texture, no rash. Skin tear on left lower abdomen. laboratory and microbiology Laboratory Tests 05/30/24 05:05 05/29/24 06:56 Test 05/29/24 06:56 Range/Units Serum Glucose 108 H 74-106 mg/dL Problem List Acute diverticulitis Acute abdominal pain Elevated troponin Hypokalemia UTI Morbid obesity Assessment/Plan Continue all current supportive medical care. Surgery, GI and Cardiology consulted. S/p CT-guided drainage of abscess with IR 05/15. Replacement of pigtail 05/24. SW consulted for [facility] for IV Abx- Micafungin 100 mg IV daily x 21 days and PICC line management. Wound eval/treat to skin tear on abdomen. IV antibiotics per ID. Nutritional support with TPN per pharmacy. Continued on clear liquid diet. Lasix 40 mg IV daily. Amiodarone 200 mg PO q12h. Optimization of BP. Levothyroxine 125 mcg PO QAM. DVT/GI prophylaxis. Pain management prn. Additional plan as per the hospital course. Dietary Evaluation Review Comments: 1) Advance pt diet when medically feasible to a [id number] diet 2) Continue current plan of care Expected Outcomes/Goals: F/U in 3-5 days Plan discussed with: Patient, Other (RN) SMITHA MCFARLANE DO May 31, 2024 21:01
[2024-06-01] VITALS (8 sets, daily range): BP systolic 121–135; BP diastolic 50–100; PULSE 69–77; RESP 16–18; TEMP 97.4–98.8; O2SAT 91–96
--- NOTE | 2024-06-01 12:09 | DVHPN2 ---
Consult Progress Note Date Seen: May 31, 2024 Subjective Patient reports: No new complaints (tolerating diet and having bowle movements , no additional drainage from catheter ) Objective vital signs Vital Sign Date Time Temp Pulse Resp B/P (MAP) Pulse Ox O2 Delivery O2 Flow Rate FiO2 06/01/24 10:44 131/108 06/01/24 10:42 72 16 06/01/24 09:00 98.8 92 98.8 06/01/24 08:05 Room Air* 0 21 Total Intake and Output 05/31/24 05/31/24 06/01/24 15:00 23:00 07:00 Intake Total 1500 ml 300 ml Output Total 50 ml Balance 1500 ml 250 ml medications Current Medications Medications Dose Ordered Sig/Lanette Route Start Time Stop Time Status Last Admin Dose Admin Atenolol 25 mg BID PO 05/10/24 10:00 Hold 05/10/24 21:38 25 MG Levothyroxine Sodium 125 mcg QAM@0600 PO 05/10/24 06:00 06/01/24 05:32 125 MCG Atorvastatin Calcium 40 mg HS PO 05/10/24 22:00 05/31/24 21:49 40 MG Ondansetron HCl 4 mg Q4HP PRN IV 05/09/24 23:00 Hold Acetaminophen 650 mg Q6HP PRN PO 05/09/24 23:00 05/23/24 15:13 650 MG Nitroglycerin 0.4 mg Q5MINP PRN SL 05/09/24 23:00 Enoxaparin Sodium 130 mg Q12HR SC 05/10/24 10:00 UNV Pantoprazole Sodium 40 mg DAILY IV 05/11/24 10:00 06/01/24 10:40 40 MG Baclofen 5 mg Q8HP PRN PO 05/12/24 19:15 Nifedipine 10 mg Q6HR PO 05/13/24 18:00 06/01/24 10:44 10 MG Metoprolol Succinate 25 mg TID PO 05/13/24 14:00 06/01/24 05:33 25 MG Lisinopril 40 mg DAILY PO 05/14/24 10:00 06/01/24 10:43 40 MG Amiodarone HCl 200 mg Q12HR PO 05/15/24 10:00 06/01/24 10:43 200 MG Sodium Chloride 10 ml QSHIFT@ IV 05/18/24 22:00 06/01/24 10:44 10 ML Hydralazine HCl 5 mg Q4HP PRN IV 05/24/24 12:00 05/24/24 13:46 5 MG Hydromorphone HCl 0.2 mg Q3HPRN PRN IV 05/25/24 13:45 05/27/24 14:16 0.2 MG Hydromorphone HCl 0.4 mg Q3HR PRN IV 05/25/24 13:45 06/01/24 10:42 0.4 MG Furosemide 40 mg DAILY IV 05/27/24 10:00 06/01/24 10:40 40 MG Sodium Acetate 20 meq/Sodium Phosphate 20 meq/ Potassium Acetate 20 meq/Potassium Phosphate 22 meq/ Magnesium Sulfate 12 meq/ Multivitamins 10 ml/Chromium/ Copper/Manganese/ Zinc 1 ml/Amino Acids/Dextrose 844 ml @ 35 mls/hr Q24H7M IV 05/28/24 22:00 05/29/24 21:59 Cancel Enoxaparin Sodium 40 mg DAILY SC 05/29/24 10:00 06/01/24 10:40 40 MG Cefpodoxime Proxetil 200 mg BID PO 05/29/24 22:00 06/01/24 10:41 200 MG Linezolid 600 mg BID PO 05/29/24 22:00 06/01/24 10:43 600 MG Enteral Nutritional Formula 240 ml TIDWM PO 05/31/24 08:00 06/01/24 08:00 240 ML Fluconazole 400 mg DAILY PO 05/31/24 10:00 06/01/24 10:43 400 MG PHYSICAL EXAM: - GENERAL: Alert and oriented x 3. No acute distress. Well-nourished. - EYES: EOMI. Anicteric. HENT: Moist mucous membranes. No scleral icterus. No cervical lymphadenopathy. - LUNGS: Clear to auscultation bilaterally. No accessory muscle use. - CARDIOVASCULAR: Regular rate and rhythm. No murmur. No JVD. - ABDOMEN: Soft, non-tender and non-distended. No palpable masses. small skin tear around bottem part of EB drain at base of skin - EXTREMITIES: No edema. Non-tender.?SKIN: No rashes or lesions. Warm. - NEUROLOGIC: No focal neurological deficits. CN II-XII grossly intact, but not individually tested. - PSYCHIATRIC: Cooperative. Appropriate mood and affect. laboratory and microbiology Laboratory Tests 05/30/24 05:05 05/29/24 06:56 Test 05/29/24 06:56 Range/Units Serum Glucose 108 H 74-106 mg/dL Problem List/Assessment/Plan Problems(with codes): (1) Atrial fibrillation (2) Hiatal hernia (3) Cholelithiasis (4) Urinary tract infection (5) Diverticulitis (6) Elevated LFTs (7) Non-STEMI (non-ST elevated myocardial infarction) (8) Diverticulitis of intestine with perforation and abscess (9) Elevated brain natriuretic peptide (BNP) level Problem List/Assessment/Plan ID Problem List: - Acute diverticulitis - Diverticular abscess - Acute abdominal pain UTI - Elevated troponin - Hypokalemia - Morbid obesity - Diarrhea - Hypertension - Hypothyroidism Assessment: This is a 73 y.o. female with a past medical history of hypertension, hyperlipidemia, kidney transplant, hypothyroidism, morbid obesity, and end-stage renal disease who presents with lower abdominal pain on May 09. The pain was nonradiating and associated with nausea, diarrhea, and poor appetite. The patient visited [facility] urgent care on May 09 for unprovoked onset of persisting symptoms except with the exception of diarrhea for the past days. The patient reported experiencing urinary retention, constipation, and fever initially for 2 days, then it subsided on its own. CT abdomen revealed diverticulitis with air in the retroperitoneum, findings suggestive of abscess, cholestasis, and small hiatal hernia. Chest X-ray showed no acute findings, and HIDA scan showed nonvisualization of the gallbladder suggestive of cystic duct obstruction. Repeat CT abdomen on May 15 showed moderate fat stranding and induration of the central mesentery, with a 6.5 by 6.2 cm collection of air and minimal fluid suggestive of acute diverticulitis with rupture and associated abscess. The patient underwent IR drainage of the pelvic abscess on July 16. Culture revealed E. coli and Proteus mirabilis, both sensitive to ANCEF and Unison. The patient has been on ceftriaxone and Flagyl. 05/21: appears to require prolonged TPN needs , pharmacy is not providing ceftazidime. 05/22: patient has had over 135 ccs of drainage , likely sufficient for antibiotics to be appropriate monotherapy for treatment 05/23: white count has normalized, microbiology shows E Coli, proteus , enterococcus and yeast. the E Coli and proteus are sensitive to zosyn. Ct scan shos a persistent abscess in the central pelvis 7.76 by 6.6 . pictile cathedeter should be removed and a new one placed . does not appear that patient would have any drug contraindications to vancomycin or fluconazol and start by IV because patient is NPO 05/24: she had a Ct guided drainage adjustment and pic tail was placed on her abdomen on a different location , unlcear how much drainage was relieved from procedure. New piccline placed. White count continues to downtred 05/25:white count coming down , more output coming from the drain. 05/26: Ct abdomen and pelvis doen and shows improved sigmoid diverticulitis and the catheter is sen in the midline abdomen with fluid collection in 3.9 cm , better from last which was 7.[address] Dumont is recommending close observation and IV antibiotics , agree with plan 05/29: Patients daughter requested we stop TPN , so that has been stopped . Patient is continuing on clear liquid idet as of 2 days and slowly transitioning oral antibiotics 05/30: Doing well on oral therapy , is off TPN Plan: - oral fluconazol 400 daily for 21 days - oral linazolid for another 21 days - oral cefpadoxine for 21 days - Patient drain management will be managed by general surgery - defer to general surgery for ongoing needs for drainage, will need to follow general surgery as outpatient - Follow up with infectious disease in [address] of abdomen and pelvis done Isolation Precautions: standard Assessment and plan were discussed with the patient as written above. Plan is subject to change pending incorporation of new incoming information/diagnostics. Updates may be added as an addendum at the bottom (OR TOP) of this note. Thank you for the interesting consult. ID will continue to follow. Please contact Infectious Disease for any questions or concerns. Quincy Wooten M.D. [facility] Plan discussed with: Other Dietary Evaluation Review Comments: 1) Advance pt diet when medically feasible to a [id number] diet 2) Continue current plan of care Expected Outcomes/Goals: F/U in 3-5 days QUINCY WOOTEN MD Jun 01, 2024 12:09
--- NOTE | 2024-06-01 21:21 | DVHPN2 ---
Progress Note - Dictate Date Seen: Jun 01, 2024 Medical Necessity Reason Pt with a Central, PICC or Fol: Yes Subjective Patient was seen and evaluated in follow up. No acute events overnight. No new complaints. Patient is tolerating diet. Having BM's. No additional drainage from catheter. Per SW, HHS and IV Abx will be arranged on Tuesday. vital signs Vital Sign Date Time Temp Pulse Resp B/P (MAP) Pulse Ox O2 Delivery O2 Flow Rate FiO2 06/01/24 20:00 Room Air* 0 21 06/01/24 17:07 129/56 06/01/24 16:53 98.0 75 17 93 98.0 Total Intake and Output 05/31/24 05/31/24 06/01/24 15:00 23:00 07:00 Intake Total 1500 ml 300 ml Output Total 50 ml Balance 1500 ml 250 ml medications Current Medications Medications Dose Ordered Sig/Lanette Route Start Time Stop Time Status Last Admin Dose Admin Atenolol 25 mg BID PO 05/10/24 10:00 Hold 05/10/24 21:38 25 MG Levothyroxine Sodium 125 mcg QAM@0600 PO 05/10/24 06:00 06/01/24 05:32 125 MCG Atorvastatin Calcium 40 mg HS PO 05/10/24 22:00 05/31/24 21:49 40 MG Acetaminophen 650 mg Q6HP PRN PO 05/09/24 23:00 05/23/24 15:13 650 MG Nitroglycerin 0.4 mg Q5MINP PRN SL 05/09/24 23:00 Enoxaparin Sodium 130 mg Q12HR SC 05/10/24 10:00 UNV Pantoprazole Sodium 40 mg DAILY IV 05/11/24 10:00 06/01/24 10:40 40 MG Baclofen 5 mg Q8HP PRN PO 05/12/24 19:15 Nifedipine 10 mg Q6HR PO 05/13/24 18:00 06/01/24 17:07 10 MG Metoprolol Succinate 25 mg TID PO 05/13/24 14:00 06/01/24 13:42 25 MG Lisinopril 40 mg DAILY PO 05/14/24 10:00 06/01/24 10:43 40 MG Amiodarone HCl 200 mg Q12HR PO 05/15/24 10:00 06/01/24 10:43 200 MG Sodium Chloride 10 ml QSHIFT@10,22 IV 05/18/24 22:00 06/01/24 10:44 10 ML Hydralazine HCl 5 mg Q4HP PRN IV 05/24/24 12:00 05/24/24 13:46 5 MG Hydromorphone HCl 0.2 mg Q3HPRN PRN IV 05/25/24 13:45 05/27/24 14:16 0.2 MG Hydromorphone HCl 0.4 mg Q3HR PRN IV 05/25/24 13:45 06/01/24 10:42 0.4 MG Furosemide 40 mg DAILY IV 05/27/24 10:00 06/01/24 10:40 40 MG Sodium Acetate 20 meq/Sodium Phosphate 20 meq/ Potassium Acetate 20 meq/Potassium Phosphate 22 meq/ Magnesium Sulfate 12 meq/ Multivitamins 10 ml/Chromium/ Copper/Manganese/ Zinc 1 ml/Amino Acids/Dextrose 844 ml @ 35 mls/hr Q24H7M IV 05/28/24 22:00 05/29/24 21:59 Cancel Enoxaparin Sodium 40 mg DAILY SC 05/29/24 10:00 06/01/24 10:40 40 MG Cefpodoxime Proxetil 200 mg BID PO 05/29/24 22:00 06/01/24 10:41 200 MG Linezolid 600 mg BID PO 05/29/24 22:00 06/01/24 10:43 600 MG Enteral Nutritional Formula 240 ml TIDWM PO 05/31/24 08:00 06/01/24 18:06 240 ML Fluconazole 400 mg DAILY PO 05/31/24 10:00 06/01/24 10:43 400 MG Ondansetron HCl 4 mg Q6HPRN PRN IV 06/01/24 14:00 objective Physical exam: Vitals and nursing notes reviewed. General: In no acute distress, morbidly obese. HEENT: Normocephalic atraumatic, mucous membranes moist and pink. Neck: Cervical and supraclavicular nodes normal without enlargement. Pulmonary: Clear to auscultation and percussion bilaterally. Cardiac: RRR. No murmur. Abdomen: Soft, tender, nondistended, bowel sounds present all 4 quadrants, no guarding. Musculoskeletal: No deformity. Neuro: Cranial nerves II through XII grossly intact, normal affect and speech, no focal motor deficits. Skin: Warm, dry, normal color and texture, no rash. Skin tear on left lower abdomen. laboratory and microbiology Laboratory Tests 05/30/24 05:05 05/29/24 06:56 Test 05/29/24 06:56 Range/Units Serum Glucose 108 H 74-106 mg/dL Problem List Acute diverticulitis Acute abdominal pain Elevated troponin Hypokalemia UTI Morbid obesity Assessment/Plan Continue all current supportive medical care. Surgery, GI and Cardiology consulted. S/p CT-guided drainage of abscess with IR 05/15. Replacement of pigtail 05/24. Patient will be going home with [facility] with IV Abx- Micafungin 100 mg IV daily x 21 days and PICC line management. IV antibiotics per ID. Nutritional support with TPN per pharmacy. Continued on clear liquid diet. Lasix 40 mg IV daily. Amiodarone 200 mg PO q12h. Optimization of BP. Levothyroxine 125 mcg PO QAM. DVT/GI prophylaxis. Antiemetics with Zofran. Pain management prn. Wound care as recommended. Additional plan as per the hospital course. Dietary Evaluation Review Comments: 1) Advance pt diet when medically feasible to a [id number] diet 2) Continue current plan of care Expected Outcomes/Goals: F/U in 3-5 days Plan discussed with: Patient, Other (RN) SMITHA MCFARLANE DO Jun 01, 2024 21:20
--- NOTE | 2024-06-01 22:12 | DVHPN2 ---
Consult Progress Note Date Seen: Jun 01, 2024 Subjective Patient reports: Feels better (not having any pain in abdominal area or over the skin tear which seems to be scabbed over, patient had an additional 50ccs of drainage from EB drain ) Objective vital signs Vital Sign Date Time Temp Pulse Resp B/P (MAP) Pulse Ox O2 Delivery O2 Flow Rate FiO2 06/01/24 22:04 74 135/53 06/01/24 21:00 97.7 18 94 97.7 06/01/24 20:00 Room Air* 0 21 Total Intake and Output 05/31/24 05/31/24 06/01/24 15:00 23:00 07:00 Intake Total 1500 ml 300 ml Output Total 50 ml Balance 1500 ml 250 ml medications Current Medications Medications Dose Ordered Sig/Lanette Route Start Time Stop Time Status Last Admin Dose Admin Atenolol 25 mg BID PO 05/10/24 10:00 Hold 05/10/24 21:38 25 MG Levothyroxine Sodium 125 mcg QAM@0600 PO 05/10/24 06:00 06/01/24 05:32 125 MCG Atorvastatin Calcium 40 mg HS PO 05/10/24 22:00 06/01/24 22:03 40 MG Acetaminophen 650 mg Q6HP PRN PO 05/09/24 23:00 05/23/24 15:13 650 MG Nitroglycerin 0.4 mg Q5MINP PRN SL 05/09/24 23:00 Enoxaparin Sodium 130 mg Q12HR SC 05/10/24 10:00 UNV Pantoprazole Sodium 40 mg DAILY IV 05/11/24 10:00 06/01/24 10:40 40 MG Baclofen 5 mg Q8HP PRN PO 05/12/24 19:15 Nifedipine 10 mg Q6HR PO 05/13/24 18:00 06/01/24 17:07 10 MG Metoprolol Succinate 25 mg TID PO 05/13/24 14:00 06/01/24 22:04 25 MG Lisinopril 40 mg DAILY PO 05/14/24 10:00 06/01/24 10:43 40 MG Amiodarone HCl 200 mg Q12HR PO 05/15/24 10:00 06/01/24 22:04 200 MG Sodium Chloride 10 ml QSHIFT@ IV 05/18/24 22:00 06/01/24 22:10 10 ML Hydralazine HCl 5 mg Q4HP PRN IV 05/24/24 12:00 05/24/24 13:46 5 MG Hydromorphone HCl 0.2 mg Q3HPRN PRN IV 05/25/24 13:45 05/27/24 14:16 0.2 MG Hydromorphone HCl 0.4 mg Q3HR PRN IV 05/25/24 13:45 06/01/24 10:42 0.4 MG Furosemide 40 mg DAILY IV 05/27/24 10:00 06/01/24 10:40 40 MG Sodium Acetate 20 meq/Sodium Phosphate 20 meq/ Potassium Acetate 20 meq/Potassium Phosphate 22 meq/ Magnesium Sulfate 12 meq/ Multivitamins 10 ml/Chromium/ Copper/Manganese/ Zinc 1 ml/Amino Acids/Dextrose 844 ml @ 35 mls/hr Q24H7M IV 05/28/24 22:00 05/29/24 21:59 Cancel Enoxaparin Sodium 40 mg DAILY SC 05/29/24 10:00 06/01/24 10:40 40 MG Cefpodoxime Proxetil 200 mg BID PO 05/29/24 22:00 06/01/24 22:04 200 MG Linezolid 600 mg BID PO 05/29/24 22:00 06/01/24 22:04 600 MG Enteral Nutritional Formula 240 ml TIDWM PO 05/31/24 08:00 06/01/24 18:06 240 ML Fluconazole 400 mg DAILY PO 05/31/24 10:00 06/01/24 10:43 400 MG Ondansetron HCl 4 mg Q6HPRN PRN IV 06/01/24 14:00 PHYSICAL EXAM: - GENERAL: Alert and oriented x 3. No acute distress. Well-nourished. - EYES: EOMI. Anicteric. HENT: Moist mucous membranes. No scleral icterus. No cervical lymphadenopathy. - LUNGS: Clear to auscultation bilaterally. No accessory muscle use. - CARDIOVASCULAR: Regular rate and rhythm. No murmur. No JVD. - ABDOMEN: Soft, non-tender and non-distended. No palpable masses. small skin tear around bottem part of EB drain at base of skin - EXTREMITIES: No edema. Non-tender.?SKIN: No rashes or lesions. Warm. - NEUROLOGIC: No focal neurological deficits. CN II-XII grossly intact, but not individually tested. - PSYCHIATRIC: Cooperative. Appropriate mood and affect. laboratory and microbiology Laboratory Tests 05/30/24 05:05 05/29/24 06:56 Test 05/29/24 06:56 Range/Units Serum Glucose 108 H 74-106 mg/dL Problem List/Assessment/Plan Problems(with codes): (1) Diverticulitis of intestine with perforation and abscess (2) Elevated brain natriuretic peptide (BNP) level (3) Non-STEMI (non-ST elevated myocardial infarction) (4) Elevated LFTs (5) Diverticulitis (6) Urinary tract infection (7) Cholelithiasis (8) Hiatal hernia (9) Atrial fibrillation Problem List/Assessment/Plan ID Problem List: - Acute diverticulitis - Diverticular abscess - Acute abdominal pain UTI - Elevated troponin - Hypokalemia - Morbid obesity - Diarrhea - Hypertension - Hypothyroidism Assessment: This is a 73 y.o. female with a past medical history of hypertension, hyperlipidemia, kidney transplant, hypothyroidism, morbid obesity, and end-stage renal disease who presents with lower abdominal pain on May 09. The pain was nonradiating and associated with nausea, diarrhea, and poor appetite. The patient visited [facility] urgent care on May 09 for unprovoked onset of persisting symptoms except with the exception of diarrhea for the past days. The patient reported experiencing urinary retention, constipation, and fever initially for 2 days, then it subsided on its own. CT abdomen revealed diverticulitis with air in the retroperitoneum, findings suggestive of abscess, cholestasis, and small hiatal hernia. Chest X-ray showed no acute findings, and HIDA scan showed nonvisualization of the gallbladder suggestive of cystic duct obstruction. Repeat CT abdomen on May 15 showed moderate fat stranding and induration of the central mesentery, with a 6.5 by 6.2 cm collection of air and minimal fluid suggestive of acute diverticulitis with rupture and associated abscess. The patient underwent IR drainage of the pelvic abscess on July 16. Culture revealed E. coli and Proteus mirabilis, both sensitive to ANCEF and Unison. The patient has been on ceftriaxone and Flagyl. 05/21: appears to require prolonged TPN needs , pharmacy is not providing ceftazidime. 05/22: patient has had over 135 ccs of drainage , likely sufficient for antibiotics to be appropriate monotherapy for treatment 05/23: white count has normalized, microbiology shows E Coli, proteus , enterococcus and yeast. the E Coli and proteus are sensitive to zosyn. Ct scan shos a persistent abscess in the central pelvis 7.76 by 6.6 . pictile cathedeter should be removed and a new one placed . does not appear that patient would have any drug contraindications to vancomycin or fluconazol and start by IV because patient is NPO 05/24: she had a Ct guided drainage adjustment and pic tail was placed on her abdomen on a different location , unlcear how much drainage was relieved from procedure. New piccline placed. White count continues to downtred 05/25:white count coming down , more output coming from the drain. 05/26: Ct abdomen and pelvis doen and shows improved sigmoid diverticulitis and the catheter is sen in the midline abdomen with fluid collection in 3.9 cm , better from last which was 7.[address] Dumont is recommending close observation and IV antibiotics , agree with plan 05/29: Patients daughter requested we stop TPN , so that has been stopped . Patient is continuing on clear liquid idet as of 2 days and slowly transitioning oral antibiotics 05/30: Doing well on oral therapy , is off TPN 06/01: tolerating oral antibiotics as well as clear liquid diet Plan: - Continue to advance diet per general surgery recommendations - No need for picc line of IV antibiotics at this time - Patient can go home on 21 days of Oral antibiotics - oral fluconazol 400 daily for 21 days - oral linazolid for another 21 days - oral cefpadoxine for 21 days - Patient drain management will be managed by general surgery - defer to general surgery for ongoing needs for drainage, will need to follow general surgery as outpatient - Follow up with infectious disease in [address] of abdomen and pelvis done Isolation Precautions: standard Assessment and plan were discussed with the patient as written above. Plan is subject to change pending incorporation of new incoming information/diagnostics. Updates may be added as an addendum at the bottom (OR TOP) of this note. Thank you for the interesting consult. ID will continue to follow. Please contact Infectious Disease for any questions or concerns. Quincy Wooten M.D. [facility] Plan discussed with: Other Dietary Evaluation Review Comments: 1) Advance pt diet when medically feasible to a [id number]/[id number] diet 2) Continue current plan of care Expected Outcomes/Goals: F/U in 3-5 days QUINCY WOOTEN MD Jun 01, 2024 22:12
--- NOTE | 2024-06-01 22:48 | DVHPN2 ---
Progress Note - Dictate Date Seen: Jun 01, 2024 Medical Necessity Reason Pt with a Central, PICC or Fol: Yes Subjective Patient was seen and evaluated in follow up. No overnight events. Patient is resting in bed comfortably. Patient still has output in pigtail drain. Patient is awaiting arrangements for [facility]. vital signs Vital Sign Date Time Temp Pulse Resp B/P (MAP) Pulse Ox O2 Delivery O2 Flow Rate FiO2 06/01/24 10:44 131/108 06/01/24 10:42 72 16 06/01/24 09:00 98.8 92 98.8 06/01/24 08:05 Room Air* 0 21 Total Intake and Output 05/31/24 05/31/24 06/01/24 15:00 23:00 07:00 Intake Total 1500 ml 300 ml Output Total 50 ml Balance 1500 ml 250 ml medications Current Medications Medications Dose Ordered Sig/Lanette Route Start Time Stop Time Status Last Admin Dose Admin Atenolol 25 mg BID PO 05/10/24 10:00 Hold 05/10/24 21:38 25 MG Levothyroxine Sodium 125 mcg QAM@0600 PO 05/10/24 06:00 06/01/24 05:32 125 MCG Atorvastatin Calcium 40 mg HS PO 05/10/24 22:00 05/31/24 21:49 40 MG Ondansetron HCl 4 mg Q4HP PRN IV 05/09/24 23:00 Hold Acetaminophen 650 mg Q6HP PRN PO 05/09/24 23:00 05/23/24 15:13 650 MG Nitroglycerin 0.4 mg Q5MINP PRN SL 05/09/24 23:00 Enoxaparin Sodium 130 mg Q12HR SC 05/10/24 10:00 UNV Pantoprazole Sodium 40 mg DAILY IV 05/11/24 10:00 06/01/24 10:40 40 MG Baclofen 5 mg Q8HP PRN PO 05/12/24 19:15 Nifedipine 10 mg Q6HR PO 05/13/24 18:00 06/01/24 10:44 10 MG Metoprolol Succinate 25 mg TID PO 05/13/24 14:00 06/01/24 05:33 25 MG Lisinopril 40 mg DAILY PO 05/14/24 10:00 06/01/24 10:43 40 MG Amiodarone HCl 200 mg Q12HR PO 05/15/24 10:00 06/01/24 10:43 200 MG Sodium Chloride 10 ml QSHIFT@10,22 IV 05/18/24 22:00 06/01/24 10:44 10 ML Hydralazine HCl 5 mg Q4HP PRN IV 05/24/24 12:00 05/24/24 13:46 5 MG Hydromorphone HCl 0.2 mg Q3HPRN PRN IV 05/25/24 13:45 05/27/24 14:16 0.2 MG Hydromorphone HCl 0.4 mg Q3HR PRN IV 05/25/24 13:45 06/01/24 10:42 0.4 MG Furosemide 40 mg DAILY IV 05/27/24 10:00 06/01/24 10:40 40 MG Sodium Acetate 20 meq/Sodium Phosphate 20 meq/ Potassium Acetate 20 meq/Potassium Phosphate 22 meq/ Magnesium Sulfate 12 meq/ Multivitamins 10 ml/Chromium/ Copper/Manganese/ Zinc 1 ml/Amino Acids/Dextrose 844 ml @ 35 mls/hr Q24H7M IV 05/28/24 22:00 05/29/24 21:59 Cancel Enoxaparin Sodium 40 mg DAILY SC 05/29/24 10:00 06/01/24 10:40 40 MG Cefpodoxime Proxetil 200 mg BID PO 05/29/24 22:00 06/01/24 10:41 200 MG Linezolid 600 mg BID PO 05/29/24 22:00 06/01/24 10:43 600 MG Enteral Nutritional Formula 240 ml TIDWM PO 05/31/24 08:00 06/01/24 08:00 240 ML Fluconazole 400 mg DAILY PO 05/31/24 10:00 06/01/24 10:43 400 MG objective GENERAL: Awake, alert, oriented. Morbidly obese. LUNGS: Clear. CARDIOVASCULAR: Tachycardic. ABDOMEN: Soft, tender in the left lower quadrant, nondistended, bowel sounds present all 4 quadrants, no guarding. laboratory and microbiology Laboratory Tests 05/30/24 05:05 05/29/24 06:56 Test 05/29/24 06:56 Range/Units Serum Glucose 108 H 74-106 mg/dL Problem List Atrial fibrillation with rapid ventricular response. Acute diverticulitis with microperforation. Morbid obesity. Profound leukocytosis. Acute abdominal pain. Elevated troponin. Hypokalemia. UTI. Morbid obesity. Diarrhea. Hypertension. Hypothyroidism. Assessment/Plan Continued all current supportive medical care. Amiodarone. Lipitor, Metoprolol. IV antibiotics as ordered. Diuretics with Lasix. Dilaudid for pain management. Synthroid. GI prophylactics. Lisinopril, Nifedipine. Additional plan as per the hospital course. Dietary Evaluation Review Comments: 1) Advance pt diet when medically feasible to a [id number]/2gNa diet 2) Continue current plan of care Expected Outcomes/Goals: F/U in 3-5 days Plan discussed with: Patient TRESA MCFARLANE MD Jun 01, 2024 11:15
[2024-06-02] VITALS (10 sets, daily range): BP systolic 117–157; BP diastolic 41–97; PULSE 72–79; RESP 17–18; TEMP 97.4–98.4; O2SAT 89–98
--- NOTE | 2024-06-02 20:03 | DVHPN2 ---
Progress Note - Dictate Date Seen: Jun 02, 2024 Medical Necessity Reason Pt with a Central, PICC or Fol: Yes Subjective Patient was seen and evaluated in follow up. No acute events overnight. Patient complaints of lower abdominal pain where drain and skin tear are. Patient had an additional 50ccs of drainage from EB drain. No shortness of breath or chest pain. IV Abx are no longer needed at home per ID. vital signs Vital Sign Date Time Temp Pulse Resp B/P (MAP) Pulse Ox O2 Delivery O2 Flow Rate FiO2 06/02/24 17:52 119/97 06/02/24 17:06 97.9 79 17 89 97.9 06/02/24 08:00 Room Air* 0 21 Total Intake and Output 06/01/24 06/01/24 06/02/24 15:00 23:00 07:00 Intake Total 295 ml 460 ml Balance 295 ml 460 ml medications Current Medications Medications Dose Ordered Sig/Lanette Route Start Time Stop Time Status Last Admin Dose Admin Atenolol 25 mg BID PO 05/10/24 10:00 Hold 05/10/24 21:38 25 MG Levothyroxine Sodium 125 mcg QAM@0600 PO 05/10/24 06:00 06/02/24 05:34 125 MCG Atorvastatin Calcium 40 mg HS PO 05/10/24 22:00 06/01/24 22:03 40 MG Acetaminophen 650 mg Q6HP PRN PO 05/09/24 23:00 05/23/24 15:13 650 MG Nitroglycerin 0.4 mg Q5MINP PRN SL 05/09/24 23:00 Enoxaparin Sodium 130 mg Q12HR SC 05/10/24 10:00 UNV Pantoprazole Sodium 40 mg DAILY IV 05/11/24 10:00 06/02/24 10:46 40 MG Baclofen 5 mg Q8HP PRN PO 05/12/24 19:15 Nifedipine 10 mg Q6HR PO 05/13/24 18:00 06/02/24 17:52 10 MG Metoprolol Succinate 25 mg TID PO 05/13/24 14:00 06/02/24 05:34 25 MG Lisinopril 40 mg DAILY PO 05/14/24 10:00 06/02/24 10:54 40 MG Amiodarone HCl 200 mg Q12HR PO 05/15/24 10:00 06/02/24 10:53 200 MG Sodium Chloride 10 ml QSHIFT@10,22 IV 05/18/24 22:00 06/02/24 11:11 10 ML Hydralazine HCl 5 mg Q4HP PRN IV 05/24/24 12:00 05/24/24 13:46 5 MG Hydromorphone HCl 0.2 mg Q3HPRN PRN IV 05/25/24 13:45 05/27/24 14:16 0.2 MG Hydromorphone HCl 0.4 mg Q3HR PRN IV 05/25/24 13:45 06/02/24 11:26 0.4 MG Furosemide 40 mg DAILY IV 05/27/24 10:00 06/02/24 10:48 40 MG Sodium Acetate 20 meq/Sodium Phosphate 20 meq/ Potassium Acetate 20 meq/Potassium Phosphate 22 meq/ Magnesium Sulfate 12 meq/ Multivitamins 10 ml/Chromium/ Copper/Manganese/ Zinc 1 ml/Amino Acids/Dextrose 844 ml @ 35 mls/hr Q24H7M IV 05/28/24 22:00 05/29/24 21:59 Cancel Enoxaparin Sodium 40 mg DAILY SC 05/29/24 10:00 06/02/24 10:49 40 MG Cefpodoxime Proxetil 200 mg BID PO 05/29/24 22:00 06/02/24 10:50 200 MG Linezolid 600 mg BID PO 05/29/24 22:00 06/02/24 10:56 600 MG Enteral Nutritional Formula 240 ml TIDWM PO 05/31/24 08:00 06/02/24 17:53 240 ML Fluconazole 400 mg DAILY PO 05/31/24 10:00 06/02/24 10:52 400 MG Ondansetron HCl 4 mg Q6HPRN PRN IV 06/01/24 14:00 objective Physical exam: Vitals and nursing notes reviewed. General: In no acute distress, morbidly obese. HEENT: Normocephalic atraumatic, mucous membranes moist and pink. Neck: Cervical and supraclavicular nodes normal without enlargement. Pulmonary: Clear to auscultation and percussion bilaterally. Cardiac: RRR. No murmur. Abdomen: Soft, tender, nondistended, bowel sounds present all 4 quadrants, no guarding. Musculoskeletal: No deformity. Neuro: Cranial nerves II through XII grossly intact, normal affect and speech, no focal motor deficits. Skin: Warm, dry, normal color and texture, no rash. Skin tear on left lower abdomen. laboratory and microbiology Laboratory Tests 05/30/24 05:05 05/29/24 06:56 Test 05/29/24 06:56 Range/Units Serum Glucose 108 H 74-106 mg/dL Problem List Acute diverticulitis Acute abdominal pain Elevated troponin Hypokalemia UTI Morbid obesity Assessment/Plan Continue all current supportive medical care. Surgery, GI and Cardiology consulted. S/p CT-guided drainage of abscess with IR 05/15. Replacement of pigtail 05/24. Antibiotic therapy per ID. DC PICC line. Lasix 40 mg IV daily. Amiodarone 200 mg PO q12h. Levothyroxine 125 mcg PO QAM. Clear liquid diet. DVT/GI prophylaxis. Pain management prn. Wound care as recommended. Additional plan as per the hospital course. Dietary Evaluation Review Comments: 1) Advance pt diet when medically feasible to a [id number]/[id number] diet 2) Continue current plan of care Expected Outcomes/Goals: F/U in 3-5 days Plan discussed with: Patient, Other (RN) SMITHA MCFARLANE DO Jun 02, 2024 20:03
--- NOTE | 2024-06-02 21:51 | DVHPN2 ---
Progress Note - Dictate Date Seen: Jun 02, 2024 Medical Necessity Reason Pt with a Central, PICC or Fol: Yes Subjective Patient was seen and evaluated in follow up. No overnight events. Patient complains of lower abdominal pain. Patient's pigtail remains in place and continues to have output. Family at bedside. vital signs Vital Sign Date Time Temp Pulse Resp B/P (MAP) Pulse Ox O2 Delivery O2 Flow Rate FiO2 06/02/24 13:37 97.4 75 17 157/51 (86) 95 97.4 06/02/24 08:00 Room Air* 0 21 Total Intake and Output 06/01/24 06/01/24 06/02/24 15:00 23:00 07:00 Intake Total 295 ml 460 ml Balance 295 ml 460 ml medications Current Medications Medications Dose Ordered Sig/Lanette Route Start Time Stop Time Status Last Admin Dose Admin Atenolol 25 mg BID PO 05/10/24 10:00 Hold 05/10/24 21:38 25 MG Levothyroxine Sodium 125 mcg QAM@0600 PO 05/10/24 06:00 06/02/24 05:34 125 MCG Atorvastatin Calcium 40 mg HS PO 05/10/24 22:00 06/01/24 22:03 40 MG Acetaminophen 650 mg Q6HP PRN PO 05/09/24 23:00 05/23/24 15:13 650 MG Nitroglycerin 0.4 mg Q5MINP PRN SL 05/09/24 23:00 Enoxaparin Sodium 130 mg Q12HR SC 05/10/24 10:00 UNV Pantoprazole Sodium 40 mg DAILY IV 05/11/24 10:00 06/02/24 10:46 40 MG Baclofen 5 mg Q8HP PRN PO 05/12/24 19:15 Nifedipine 10 mg Q6HR PO 05/13/24 18:00 06/02/24 13:09 10 MG Metoprolol Succinate 25 mg TID PO 05/13/24 14:00 06/02/24 05:34 25 MG Lisinopril 40 mg DAILY PO 05/14/24 10:00 06/02/24 10:54 40 MG Amiodarone HCl 200 mg Q12HR PO 05/15/24 10:00 06/02/24 10:53 200 MG Sodium Chloride 10 ml QSHIFT@ IV 05/18/24 22:00 06/02/24 11:11 10 ML Hydralazine HCl 5 mg Q4HP PRN IV 05/24/24 12:00 05/24/24 13:46 5 MG Hydromorphone HCl 0.2 mg Q3HPRN PRN IV 05/25/24 13:45 05/27/24 14:16 0.2 MG Hydromorphone HCl 0.4 mg Q3HR PRN IV 05/25/24 13:45 06/02/24 11:26 0.4 MG Furosemide 40 mg DAILY IV 05/27/24 10:00 06/02/24 10:48 40 MG Sodium Acetate 20 meq/Sodium Phosphate 20 meq/ Potassium Acetate 20 meq/Potassium Phosphate 22 meq/ Magnesium Sulfate 12 meq/ Multivitamins 10 ml/Chromium/ Copper/Manganese/ Zinc 1 ml/Amino Acids/Dextrose 844 ml @ 35 mls/hr Q24H7M IV 05/28/24 22:00 05/29/24 21:59 Cancel Enoxaparin Sodium 40 mg DAILY SC 05/29/24 10:00 06/02/24 10:49 40 MG Cefpodoxime Proxetil 200 mg BID PO 05/29/24 22:00 06/02/24 10:50 200 MG Linezolid 600 mg BID PO 05/29/24 22:00 06/02/24 10:56 600 MG Enteral Nutritional Formula 240 ml TIDWM PO 05/31/24 08:00 06/02/24 13:09 240 ML Fluconazole 400 mg DAILY PO 05/31/24 10:00 06/02/24 10:52 400 MG Ondansetron HCl 4 mg Q6HPRN PRN IV 06/01/24 14:00 objective GENERAL: Awake, alert, oriented. Morbidly obese. LUNGS: Clear. CARDIOVASCULAR: Tachycardic. ABDOMEN: Soft, tender in the left lower quadrant, nondistended, bowel sounds present all 4 quadrants, no guarding. laboratory and microbiology Laboratory Tests 05/30/24 05:05 05/29/24 06:56 Test 05/29/24 06:56 Range/Units Serum Glucose 108 H 74-106 mg/dL Problem List Atrial fibrillation with rapid ventricular response. Acute diverticulitis with microperforation. Morbid obesity. Profound leukocytosis. Acute abdominal pain. Elevated troponin. Hypokalemia. UTI. Morbid obesity. Diarrhea. Hypertension. Hypothyroidism. Assessment/Plan Continued all current supportive medical care. Amiodarone. Lipitor, Metoprolol. IV antibiotics as ordered. Diuretics with Lasix. Dilaudid for pain management. Synthroid. GI prophylactics. Lisinopril, Nifedipine. Additional plan as per the hospital course. Dietary Evaluation Review Comments: 1) Advance pt diet when medically feasible to a [id number] diet 2) Continue current plan of care Expected Outcomes/Goals: F/U in 3-5 days Plan discussed with: Patient TRESA MCFARLANE MD Jun 02, 2024 13:55
--- NOTE | 2024-06-02 22:11 | DVHPN2 ---
Consult Progress Note Date Seen: Jun 02, 2024 Subjective Patient reports: Other (tolerating liquid diet and taablets , having bowel movements , having about 50ccs of preliminary drainage from catheter ) Objective vital signs Vital Sign Date Time Temp Pulse Resp B/P (MAP) Pulse Ox O2 Delivery O2 Flow Rate FiO2 06/02/24 21:00 98.4 79 18 121/44 (69) 96 98.4 06/02/24 08:00 Room Air* 0 21 Total Intake and Output 06/01/24 06/01/24 06/02/24 15:00 23:00 07:00 Intake Total 295 ml 460 ml Balance 295 ml 460 ml medications Current Medications Medications Dose Ordered Sig/Lanette Route Start Time Stop Time Status Last Admin Dose Admin Atenolol 25 mg BID PO 05/10/24 10:00 Hold 05/10/24 21:38 25 MG Levothyroxine Sodium 125 mcg QAM@0600 PO 05/10/24 06:00 06/02/24 05:34 125 MCG Atorvastatin Calcium 40 mg HS PO 05/10/24 22:00 06/01/24 22:03 40 MG Acetaminophen 650 mg Q6HP PRN PO 05/09/24 23:00 05/23/24 15:13 650 MG Nitroglycerin 0.4 mg Q5MINP PRN SL 05/09/24 23:00 Enoxaparin Sodium 130 mg Q12HR SC 05/10/24 10:00 UNV Pantoprazole Sodium 40 mg DAILY IV 05/11/24 10:00 06/02/24 10:46 40 MG Baclofen 5 mg Q8HP PRN PO 05/12/24 19:15 Nifedipine 10 mg Q6HR PO 05/13/24 18:00 06/02/24 17:52 10 MG Metoprolol Succinate 25 mg TID PO 05/13/24 14:00 06/02/24 05:34 25 MG Lisinopril 40 mg DAILY PO 05/14/24 10:00 06/02/24 10:54 40 MG Amiodarone HCl 200 mg Q12HR PO 05/15/24 10:00 06/02/24 10:53 200 MG Sodium Chloride 10 ml QSHIFT@ IV 05/18/24 22:00 06/02/24 11:11 10 ML Hydralazine HCl 5 mg Q4HP PRN IV 05/24/24 12:00 05/24/24 13:46 5 MG Hydromorphone HCl 0.2 mg Q3HPRN PRN IV 05/25/24 13:45 05/27/24 14:16 0.2 MG Hydromorphone HCl 0.4 mg Q3HR PRN IV 05/25/24 13:45 06/02/24 20:18 0.4 MG Furosemide 40 mg DAILY IV 05/27/24 10:00 06/02/24 10:48 40 MG Sodium Acetate 20 meq/Sodium Phosphate 20 meq/ Potassium Acetate 20 meq/Potassium Phosphate 22 meq/ Magnesium Sulfate 12 meq/ Multivitamins 10 ml/Chromium/ Copper/Manganese/ Zinc 1 ml/Amino Acids/Dextrose 844 ml @ 35 mls/hr Q24H7M IV 05/28/24 22:00 05/29/24 21:59 Cancel Enoxaparin Sodium 40 mg DAILY SC 05/29/24 10:00 06/02/24 10:49 40 MG Cefpodoxime Proxetil 200 mg BID PO 05/29/24 22:00 06/02/24 10:50 200 MG Linezolid 600 mg BID PO 05/29/24 22:00 06/02/24 10:56 600 MG Enteral Nutritional Formula 240 ml TIDWM PO 05/31/24 08:00 06/02/24 17:53 240 ML Fluconazole 400 mg DAILY PO 05/31/24 10:00 06/02/24 10:52 400 MG Ondansetron HCl 4 mg Q6HPRN PRN IV 06/01/24 14:00 PHYSICAL EXAM: - GENERAL: Alert and oriented x 3. No acute distress. Well-nourished. - EYES: EOMI. Anicteric. HENT: Moist mucous membranes. No scleral icterus. No cervical lymphadenopathy. - LUNGS: Clear to auscultation bilaterally. No accessory muscle use. - CARDIOVASCULAR: Regular rate and rhythm. No murmur. No JVD. - ABDOMEN: Soft, non-tender and non-distended. No palpable masses. small skin tear around bottem part of EB drain at base of skin - EXTREMITIES: No edema. Non-tender.?SKIN: No rashes or lesions. Warm. - NEUROLOGIC: No focal neurological deficits. CN II-XII grossly intact, but not individually tested. - PSYCHIATRIC: Cooperative. Appropriate mood and affect. laboratory and microbiology Laboratory Tests 05/30/24 05:05 05/29/24 06:56 Test 05/29/24 06:56 Range/Units Serum Glucose 108 H 74-106 mg/dL Problem List/Assessment/Plan Problems(with codes): (1) Diverticulitis of intestine with perforation and abscess (2) Elevated brain natriuretic peptide (BNP) level (3) Non-STEMI (non-ST elevated myocardial infarction) (4) Elevated LFTs (5) Diverticulitis (6) Urinary tract infection (7) Cholelithiasis (8) Hiatal hernia (9) Atrial fibrillation Problem List/Assessment/Plan ID Problem List: - Acute diverticulitis - Diverticular abscess - Acute abdominal pain UTI - Elevated troponin - Hypokalemia - Morbid obesity - Diarrhea - Hypertension - Hypothyroidism Assessment: This is a 73 y.o. female with a past medical history of hypertension, hyperlipidemia, kidney transplant, hypothyroidism, morbid obesity, and end-stage renal disease who presents with lower abdominal pain on May 09. The pain was nonradiating and associated with nausea, diarrhea, and poor appetite. The patient visited [facility] urgent care on May 09 for unprovoked onset of persisting symptoms except with the exception of diarrhea for the past days. The patient reported experiencing urinary retention, constipation, and fever initially for 2 days, then it subsided on its own. CT abdomen revealed diverticulitis with air in the retroperitoneum, findings suggestive of abscess, cholestasis, and small hiatal hernia. Chest X-ray showed no acute findings, and HIDA scan showed nonvisualization of the gallbladder suggestive of cystic duct obstruction. Repeat CT abdomen on May 15 showed moderate fat stranding and induration of the central mesentery, with a 6.5 by 6.2 cm collection of air and minimal fluid suggestive of acute diverticulitis with rupture and associated abscess. The patient underwent IR drainage of the pelvic abscess on July 16. Culture revealed E. coli and Proteus mirabilis, both sensitive to ANCEF and Unison. The patient has been on ceftriaxone and Flagyl. 05/21: appears to require prolonged TPN needs , pharmacy is not providing ceftazidime. 05/22: patient has had over 135 ccs of drainage , likely sufficient for antibiotics to be appropriate monotherapy for treatment 05/23: white count has normalized, microbiology shows E Coli, proteus , enterococcus and yeast. the E Coli and proteus are sensitive to zosyn. Ct scan shos a persistent abscess in the central pelvis 7.76 by 6.6 . pictile cathedeter should be removed and a new one placed . does not appear that patient would have any drug contraindications to vancomycin or fluconazol and start by IV because patient is NPO 05/24: she had a Ct guided drainage adjustment and pic tail was placed on her abdomen on a different location , unlcear how much drainage was relieved from procedure. New piccline placed. White count continues to downtred 05/25:white count coming down , more output coming from the drain. 05/26: Ct abdomen and pelvis doen and shows improved sigmoid diverticulitis and the catheter is sen in the midline abdomen with fluid collection in 3.9 cm , better from last which was 7.[address] Dumont is recommending close observation and IV antibiotics , agree with plan 05/29: Patients daughter requested we stop TPN , so that has been stopped . Patient is continuing on clear liquid idet as of 2 days and slowly transitioning oral antibiotics 05/30: Doing well on oral therapy , is off TPN 06/01: tolerating oral antibiotics as well as clear liquid diet 06/02: patient is now 7 days out from pigtail catheter placement and significant amount of drainage has come out , likely abscess is less than 3 cm in size and amenable to oral antibiotics Plan: - recommend removing piccline - recommend oral antibiotics for 14 more days , oral fluconazol and linazolid and cefpadoxine - Continue to advance diet per general surgery recommendations - No need for picc line of IV antibiotics at this time - Patient can go home on 21 days of Oral antibiotics - oral fluconazol 400 daily for 21 days - oral linazolid for another 21 days - oral cefpadoxine for 21 days - Patient drain management will be managed by general surgery - defer to general surgery for ongoing needs for drainage, will need to follow general surgery as outpatient - Follow up with infectious disease in [address] of abdomen and pelvis done Isolation Precautions: standard Assessment and plan were discussed with the patient as written above. Plan is subject to change pending incorporation of new incoming information/diagnostics. Updates may be added as an addendum at the bottom (OR TOP) of this note. Thank you for the interesting consult. ID will continue to follow. Please contact Infectious Disease for any questions or concerns. Quincy Wooten M.D. [facility] Plan discussed with: Other Dietary Evaluation Review Comments: 1) Advance pt diet when medically feasible to a KAZL37g/2gNa diet 2) Continue current plan of care Expected Outcomes/Goals: F/U in 3-5 days QUINCY WOOTEN MD Jun 02, 2024 22:11
[2024-06-03] VITALS (9 sets, daily range): BP systolic 103–140; BP diastolic 41–61; PULSE 75–81; RESP 17–19; TEMP 97.9–98.7; O2SAT 93–96
[2024-06-03 15:04] LABS: Basophils # (auto) 0 10 ^3/uL (0-0.2); Basophils % (auto) 0.5 % (0.0-2.0); Eosinophils # (auto) 0.4 10 ^3/uL (0-0.8); Eosinophils % (auto) 7.6 % (0.0-7.0); Hematocrit 32.9 % (36.0-46.0); Hemoglobin 10.8 g/dL (12.2-16.2); Lymphocytes # (auto) 1.9 10 ^3/uL (0.4-5.4); Mean Corpuscular Hemoglobin 29.8 pg (28.0-32.0); Mean Corpuscular Hgb Conc. 32.9 g/dL (32.0-36.0); Mean Corpuscular Volume 90.5 fL (80.0-100.0); Monocytes # (auto) 0.6 10 ^3/uL (0-1.3); Monocytes % (auto) 11.6 % (0.0-12.0); Neutrophils # (auto) 2.4 10 ^3/uL (1.6-8.6); Neutrophils % (auto) 45.3 % (37.0-80.0); Platelet Count (auto) 395 10^3/uL (140-450); Red Blood Cells 3.63 10^6/uL (4.0-5.20); Red Cell Distribution Width 15.7 % (11.8-14.3); White Blood Cell 5.4 10^3/uL (4.4-10.8)
[2024-06-03 15:20] LABS: Alanine Aminotransferase 16 U/L (7-40); Albumin 3.7 g/dL (3.2-4.8); Alkaline Phosphatase 82 U/L (46-116); Anion Gap 10 (5-15); Aspartate Aminotransferase 23 U/L (13-40); BUN/Creatinine Ratio 12.3 (10.0-20.0); Bilirubin, Total 0.4 mg/dL (0.2-1.0); Blood Urea Nitrogen 14 mg/dL (9-23); Calcium 9.3 mg/dL (8.7-10.4); Carbon Dioxide 21 mmol/L (20-31); Chloride 105 mmol/L (98-107); Glucose 124 mg/dL (74-106); Magnesium 1.4 mg/dL (1.6-2.6); Phosphorus 4.4 mg/dL (2.4-5.1); Potassium 3.3 mmol/L (3.5-5.1); Sodium 136 mmol/L (136-145); Total Protein 6.4 g/dL (5.7-8.2)
[2024-06-03] MEDS: HYDROmorphone HCL 2 MG/ML VL/or syr IV PRN (18:37)
--- NOTE | 2024-06-03 19:57 | DVHPN2 ---
Progress Note - Dictate Date Seen: Jun 03, 2024 Medical Necessity Reason Pt with a Central, PICC or Fol: Yes Subjective Patient was seen and evaluated in follow up. No acute events overnight. Patient denies any abdominal pain. Having bowel movements. Awaiting clarification if home IV Abx are needed per ID. vital signs Vital Sign Date Time Temp Pulse Resp B/P (MAP) Pulse Ox O2 Delivery O2 Flow Rate FiO2 06/03/24 18:37 78 18 129/58 06/03/24 16:00 98.0 93 98.0 06/03/24 08:00 Room Air* 0 21 Total Intake and Output 06/02/24 06/02/24 06/03/24 15:00 23:00 07:00 Intake Total 1311 ml 820 ml Balance 1311 ml 820 ml medications Current Medications Medications Dose Ordered Sig/Lanette Route Start Time Stop Time Status Last Admin Dose Admin Atenolol 25 mg BID PO 05/10/24 10:00 Hold 05/10/24 21:38 25 MG Levothyroxine Sodium 125 mcg QAM@0600 PO 05/10/24 06:00 06/03/24 05:34 125 MCG Atorvastatin Calcium 40 mg HS PO 05/10/24 22:00 06/02/24 22:19 40 MG Acetaminophen 650 mg Q6HP PRN PO 05/09/24 23:00 05/23/24 15:13 650 MG Nitroglycerin 0.4 mg Q5MINP PRN SL 05/09/24 23:00 Enoxaparin Sodium 130 mg Q12HR SC 05/10/24 10:00 UNV Pantoprazole Sodium 40 mg DAILY IV 05/11/24 10:00 06/03/24 11:42 40 MG Baclofen 5 mg Q8HP PRN PO 05/12/24 19:15 Nifedipine 10 mg Q6HR PO 05/13/24 18:00 06/03/24 18:36 10 MG Metoprolol Succinate 25 mg TID PO 05/13/24 14:00 06/03/24 14:52 25 MG Lisinopril 40 mg DAILY PO 05/14/24 10:00 06/03/24 10:09 40 MG Amiodarone HCl 200 mg Q12HR PO 05/15/24 10:00 06/03/24 10:10 200 MG Sodium Chloride 10 ml QSHIFT@ IV 05/18/24 22:00 06/03/24 10:10 10 ML Hydralazine HCl 5 mg Q4HP PRN IV 05/24/24 12:00 05/24/24 13:46 5 MG Furosemide 40 mg DAILY IV 05/27/24 10:00 06/03/24 11:41 40 MG Sodium Acetate 20 meq/Sodium Phosphate 20 meq/ Potassium Acetate 20 meq/Potassium Phosphate 22 meq/ Magnesium Sulfate 12 meq/ Multivitamins 10 ml/Chromium/ Copper/Manganese/ Zinc 1 ml/Amino Acids/Dextrose 844 ml @ 35 mls/hr Q24H7M IV 05/28/24 22:00 05/29/24 21:59 Cancel Enoxaparin Sodium 40 mg DAILY SC 05/29/24 10:00 06/03/24 10:08 40 MG Cefpodoxime Proxetil 200 mg BID PO 05/29/24 22:00 06/03/24 11:42 200 MG Linezolid 600 mg BID PO 05/29/24 22:00 06/03/24 11:42 600 MG Enteral Nutritional Formula 240 ml TIDWM PO 05/31/24 08:00 06/03/24 18:36 240 ML Fluconazole 400 mg DAILY PO 05/31/24 10:00 06/03/24 10:09 400 MG Ondansetron HCl 4 mg Q6HPRN PRN IV 06/01/24 14:00 Hydromorphone HCl 0.2 mg Q3HPRN PRN IV 06/03/24 17:45 06/03/24 18:37 0.2 MG Hydromorphone HCl 0.4 mg Q3HPRN PRN IV 06/03/24 17:45 objective Physical exam: Vitals and nursing notes reviewed. General: In no acute distress, morbidly obese. HEENT: Normocephalic atraumatic, mucous membranes moist and pink. Neck: Cervical and supraclavicular nodes normal without enlargement. Pulmonary: Clear to auscultation and percussion bilaterally. Cardiac: RRR. No murmur. Abdomen: Soft, tender, nondistended, bowel sounds present all 4 quadrants, no guarding. Musculoskeletal: No deformity. Neuro: Cranial nerves II through XII grossly intact, normal affect and speech, no focal motor deficits. Skin: Warm, dry, normal color and texture, no rash. Skin tear on left lower abdomen. laboratory and microbiology Laboratory Tests 06/03/24 14:39 Test 06/03/24 14:39 Range/Units Serum Glucose 124 H 74-106 mg/dL Problem List Acute diverticulitis Acute abdominal pain Elevated troponin Hypokalemia UTI Morbid obesity Assessment/Plan Continue all current supportive medical care. Surgery, GI and Cardiology consulted. S/p CT-guided drainage of abscess with IR 05/15. Replacement of pigtail 05/24. Antibiotic therapy per ID. Lasix 40 mg IV daily. Amiodarone 200 mg PO q12h. Levothyroxine 125 mcg PO QAM. DVT/GI prophylaxis. Pain management prn. Wound care as recommended. Started on soft diet. Additional plan as per the hospital course. Dietary Evaluation Review Comments: 1) Advance pt diet when medically feasible to a [id number]/2gNa diet 2) Continue current plan of care Expected Outcomes/Goals: F/U in 3-5 days Plan discussed with: Patient, Other (RN) SMITHA MCFARLANE DO Jun 03, 2024 19:57
--- NOTE | 2024-06-03 21:16 | DVHPN2 ---
Progress Note - Dictate Date Seen: Jun 03, 2024 Medical Necessity Reason Pt with a Central, PICC or Fol: Yes Subjective Patient was seen and evaluated in follow up. Patient is complaining of lower abdominal pain. Patient is tolerating current diet. Patient is having BMs. Pigtail drain output was 50ccs. vital signs Vital Sign Date Time Temp Pulse Resp B/P (MAP) Pulse Ox O2 Delivery O2 Flow Rate FiO2 06/03/24 11:46 97.9 75 17 134/59 (84) 93 97.9 06/03/24 08:00 Room Air* 0 21 Total Intake and Output 06/02/24 06/02/24 06/03/24 15:00 23:00 07:00 Intake Total 1311 ml 820 ml Balance 1311 ml 820 ml medications Current Medications Medications Dose Ordered Sig/Lanette Route Start Time Stop Time Status Last Admin Dose Admin Atenolol 25 mg BID PO 05/10/24 10:00 Hold 05/10/24 21:38 25 MG Levothyroxine Sodium 125 mcg QAM@0600 PO 05/10/24 06:00 06/03/24 05:34 125 MCG Atorvastatin Calcium 40 mg HS PO 05/10/24 22:00 06/02/24 22:19 40 MG Acetaminophen 650 mg Q6HP PRN PO 05/09/24 23:00 05/23/24 15:13 650 MG Nitroglycerin 0.4 mg Q5MINP PRN SL 05/09/24 23:00 Enoxaparin Sodium 130 mg Q12HR SC 05/10/24 10:00 UNV Pantoprazole Sodium 40 mg DAILY IV 05/11/24 10:00 06/03/24 11:42 40 MG Baclofen 5 mg Q8HP PRN PO 05/12/24 19:15 Nifedipine 10 mg Q6HR PO 05/13/24 18:00 06/03/24 11:42 10 MG Metoprolol Succinate 25 mg TID PO 05/13/24 14:00 06/03/24 05:34 25 MG Lisinopril 40 mg DAILY PO 05/14/24 10:00 06/03/24 10:09 40 MG Amiodarone HCl 200 mg Q12HR PO 05/15/24 10:00 06/03/24 10:10 200 MG Sodium Chloride 10 ml QSHIFT@10,22 IV 05/18/24 22:00 06/03/24 10:10 10 ML Hydralazine HCl 5 mg Q4HP PRN IV 05/24/24 12:00 05/24/24 13:46 5 MG Hydromorphone HCl 0.2 mg Q3HPRN PRN IV 05/25/24 13:45 06/03/24 10:07 0.2 MG Hydromorphone HCl 0.4 mg Q3HR PRN IV 05/25/24 13:45 06/02/24 20:18 0.4 MG Furosemide 40 mg DAILY IV 05/27/24 10:00 06/03/24 11:41 40 MG Sodium Acetate 20 meq/Sodium Phosphate 20 meq/ Potassium Acetate 20 meq/Potassium Phosphate 22 meq/ Magnesium Sulfate 12 meq/ Multivitamins 10 ml/Chromium/ Copper/Manganese/ Zinc 1 ml/Amino Acids/Dextrose 844 ml @ 35 mls/hr Q24H7M IV 05/28/24 22:00 05/29/24 21:59 Cancel Enoxaparin Sodium 40 mg DAILY SC 05/29/24 10:00 06/03/24 10:08 40 MG Cefpodoxime Proxetil 200 mg BID PO 05/29/24 22:00 06/03/24 11:42 200 MG Linezolid 600 mg BID PO 05/29/24 22:00 06/03/24 11:42 600 MG Enteral Nutritional Formula 240 ml TIDWM PO 05/31/24 08:00 06/03/24 13:03 240 ML Fluconazole 400 mg DAILY PO 05/31/24 10:00 06/03/24 10:09 400 MG Ondansetron HCl 4 mg Q6HPRN PRN IV 06/01/24 14:00 objective GENERAL: Awake, alert, oriented. Morbidly obese. LUNGS: Clear. CARDIOVASCULAR: Tachycardic. ABDOMEN: Soft, tender in the left lower quadrant, nondistended, bowel sounds present all 4 quadrants, no guarding. laboratory and microbiology Laboratory Tests 05/30/24 05:05 05/29/24 06:56 Test 05/29/24 06:56 Range/Units Serum Glucose 108 H 74-106 mg/dL Problem List Atrial fibrillation with rapid ventricular response. Acute diverticulitis with microperforation. Morbid obesity. Profound leukocytosis. Acute abdominal pain. Elevated troponin. Hypokalemia. UTI. Morbid obesity. Diarrhea. Hypertension. Hypothyroidism. Assessment/Plan Continued all current supportive medical care. Amiodarone. Lipitor, Metoprolol. IV antibiotics as ordered. Diuretics with Lasix. Dilaudid for pain management. Synthroid. GI prophylactics. Lisinopril, Nifedipine. Additional plan as per the hospital course. Dietary Evaluation Review Comments: 1) Advance pt diet when medically feasible to a CSJA67h/2gNa diet 2) Continue current plan of care Expected Outcomes/Goals: F/U in 3-5 days Plan discussed with: Patient TRESA MCFARLANE MD Jun 03, 2024 13:46
--- NOTE | 2024-06-03 21:56 | DVHPN2 ---
Consult Progress Note Date Seen: Jun 03, 2024 Subjective Patient reports: Other (has a piccline still inplace , need to clarify confuison about IV antibiotics , tolerating diet. Got wound care for the wound at her GP drain site , no additional drainage from GP drain ) Objective vital signs Vital Sign Date Time Temp Pulse Resp B/P (MAP) Pulse Ox O2 Delivery O2 Flow Rate FiO2 06/03/24 21:07 79 119/50 06/03/24 19:30 16 06/03/24 16:00 98.0 93 98.0 06/03/24 08:00 Room Air* 0 21 Total Intake and Output 06/02/24 06/02/24 06/03/24 15:00 23:00 07:00 Intake Total 1311 ml 820 ml Balance 1311 ml 820 ml medications Current Medications Medications Dose Ordered Sig/Lanette Route Start Time Stop Time Status Last Admin Dose Admin Atenolol 25 mg BID PO 05/10/24 10:00 Hold 05/10/24 21:38 25 MG Levothyroxine Sodium 125 mcg QAM@0600 PO 05/10/24 06:00 06/03/24 05:34 125 MCG Atorvastatin Calcium 40 mg HS PO 05/10/24 22:00 06/03/24 21:06 40 MG Acetaminophen 650 mg Q6HP PRN PO 05/09/24 23:00 05/23/24 15:13 650 MG Nitroglycerin 0.4 mg Q5MINP PRN SL 05/09/24 23:00 Enoxaparin Sodium 130 mg Q12HR SC 05/10/24 10:00 UNV Pantoprazole Sodium 40 mg DAILY IV 05/11/24 10:00 06/03/24 11:42 40 MG Baclofen 5 mg Q8HP PRN PO 05/12/24 19:15 Nifedipine 10 mg Q6HR PO 05/13/24 18:00 06/03/24 18:36 10 MG Metoprolol Succinate 25 mg TID PO 05/13/24 14:00 06/03/24 21:07 25 MG Lisinopril 40 mg DAILY PO 05/14/24 10:00 06/03/24 10:09 40 MG Amiodarone HCl 200 mg Q12HR PO 05/15/24 10:00 06/03/24 21:06 200 MG Sodium Chloride 10 ml QSHIFT@ IV 05/18/24 22:00 06/03/24 21:16 10 ML Hydralazine HCl 5 mg Q4HP PRN IV 05/24/24 12:00 05/24/24 13:46 5 MG Furosemide 40 mg DAILY IV 05/27/24 10:00 06/03/24 11:41 40 MG Sodium Acetate 20 meq/Sodium Phosphate 20 meq/ Potassium Acetate 20 meq/Potassium Phosphate 22 meq/ Magnesium Sulfate 12 meq/ Multivitamins 10 ml/Chromium/ Copper/Manganese/ Zinc 1 ml/Amino Acids/Dextrose 844 ml @ 35 mls/hr Q24H7M IV 05/28/24 22:00 05/29/24 21:59 Cancel Enoxaparin Sodium 40 mg DAILY SC 05/29/24 10:00 06/03/24 10:08 40 MG Cefpodoxime Proxetil 200 mg BID PO 05/29/24 22:00 06/03/24 21:07 200 MG Linezolid 600 mg BID PO 05/29/24 22:00 06/03/24 21:05 600 MG Enteral Nutritional Formula 240 ml TIDWM PO 05/31/24 08:00 06/03/24 18:36 240 ML Fluconazole 400 mg DAILY PO 05/31/24 10:00 06/03/24 10:09 400 MG Ondansetron HCl 4 mg Q6HPRN PRN IV 06/01/24 14:00 Hydromorphone HCl 0.2 mg Q3HPRN PRN IV 06/03/24 17:45 06/03/24 18:37 0.2 MG Hydromorphone HCl 0.4 mg Q3HPRN PRN IV 06/03/24 17:45 PHYSICAL EXAM: - GENERAL: Alert and oriented x 3. No acute distress. Well-nourished. - EYES: EOMI. Anicteric. HENT: Moist mucous membranes. No scleral icterus. No cervical lymphadenopathy. - LUNGS: Clear to auscultation bilaterally. No accessory muscle use. - CARDIOVASCULAR: Regular rate and rhythm. No murmur. No JVD. - ABDOMEN: Soft, non-tender and non-distended. No palpable masses. small skin tear around bottem part of EB drain at base of skin - EXTREMITIES: No edema. Non-tender.?SKIN: No rashes or lesions. Warm. - NEUROLOGIC: No focal neurological deficits. CN II-XII grossly intact, but not individually tested. - PSYCHIATRIC: Cooperative. Appropriate mood and affect. laboratory and microbiology Laboratory Tests 06/03/24 14:39 Test 06/03/24 14:39 Range/Units Serum Glucose 124 H 74-106 mg/dL Problem List/Assessment/Plan Problems(with codes): (1) Diverticulitis of intestine with perforation and abscess (2) Elevated brain natriuretic peptide (BNP) level (3) Non-STEMI (non-ST elevated myocardial infarction) (4) Elevated LFTs (5) Diverticulitis (6) Urinary tract infection (7) Cholelithiasis (8) Hiatal hernia (9) Atrial fibrillation Problem List/Assessment/Plan ID Problem List: - Acute diverticulitis - Diverticular abscess - Acute abdominal pain UTI - Elevated troponin - Hypokalemia - Morbid obesity - Diarrhea - Hypertension - Hypothyroidism Assessment: This is a 73 y.o. female with a past medical history of hypertension, hyperlipidemia, kidney transplant, hypothyroidism, morbid obesity, and end-stage renal disease who presents with lower abdominal pain on May 09. The pain was nonradiating and associated with nausea, diarrhea, and poor appetite. The patient visited [facility] urgent care on May 09 for unprovoked onset of persisting symptoms except with the exception of diarrhea for the past days. The patient reported experiencing urinary retention, constipation, and fever initially for 2 days, then it subsided on its own. CT abdomen revealed diverticulitis with air in the retroperitoneum, findings suggestive of abscess, cholestasis, and small hiatal hernia. Chest X-ray showed no acute findings, and HIDA scan showed nonvisualization of the gallbladder suggestive of cystic duct obstruction. Repeat CT abdomen on May 15 showed moderate fat stranding and induration of the central mesentery, with a 6.5 by 6.2 cm collection of air and minimal fluid suggestive of acute diverticulitis with rupture and associated abscess. The patient underwent IR drainage of the pelvic abscess on July 16. Culture revealed E. coli and Proteus mirabilis, both sensitive to ANCEF and Unison. The patient has been on ceftriaxone and Flagyl. 05/21: appears to require prolonged TPN needs , pharmacy is not providing ceftazidime. 05/22: patient has had over 135 ccs of drainage , likely sufficient for antibiotics to be appropriate monotherapy for treatment 05/23: white count has normalized, microbiology shows E Coli, proteus , enterococcus and yeast. the E Coli and proteus are sensitive to Zosyn. Ct scan shos a persistent abscess in the central pelvis 7.76 by 6.6 . pictile catheter should be removed and a new one placed . does not appear that patient would have any drug contraindications to vancomycin or fluconazole and start by IV because patient is NPO 05/24: she had a Ct guided drainage adjustment and pic tail was placed on her abdomen on a different location , unclear how much drainage was relieved from procedure. New piccline placed. White count continues to downtrend 05/25:white count coming down , more output coming from the drain. 05/26: Ct abdomen and pelvis doen and shows improved sigmoid diverticulitis and the catheter is sen in the midline abdomen with fluid collection in 3.9 cm , better from last which was 7.[address] Dumont is recommending close observation and IV antibiotics , agree with plan 05/29: Patients daughter requested we stop TPN , so that has been stopped . Patient is continuing on clear liquid idet as of 2 days and slowly transitioning oral antibiotics 05/30: Doing well on oral therapy , is off TPN 06/01: tolerating oral antibiotics as well as clear liquid diet 06/02: patient is now 7 days out from pigtail catheter placement and significant amount of drainage has come out , likely abscess is less than 3 cm in size and amenable to oral antibiotics Plan: - recommend removing piccline - recommend oral antibiotics for 14 more days , oral fluconazole and linezolid and cefpodoxime - Continue to advance diet per general surgery recommendations - No need for picc line of IV antibiotics at this time - Patient drain management will be managed by general surgery - defer to general surgery for ongoing needs for drainage, will need to follow general surgery as outpatient - Follow up with infectious disease in [address] of abdomen and pelvis done Isolation Precautions: standard Assessment and plan were discussed with the patient as written above. Plan is subject to change pending incorporation of new incoming information/diagnostics. Updates may be added as an addendum at the bottom (OR TOP) of this note. Thank you for the interesting consult. ID will continue to follow. Please contact Infectious Disease for any questions or concerns. Quincy Wooten M.D. [facility] Plan discussed with: Other Dietary Evaluation Review Comments: 1) Advance pt diet when medically feasible to a [id number]/[id number] diet 2) Continue current plan of care Expected Outcomes/Goals: F/U in 3-5 days QUINCY WOOTNE MD Jun 03, 2024 21:56
[2024-06-04 01:00] VITALS: BP 142/52; PULSE 82; RESP 18; TEMP 98; O2SAT 95
[2024-06-04 05:00] VITALS: BP 116/47; PULSE 78; RESP 18; TEMP 98.2; O2SAT 95
[2024-06-04] MEDS: IOHEXOL 300 MG/ML 100ML BOTTLE IJ ONE (07:27)
[2024-06-04] MEDS: GASTROGRAFIN 30 ML SOL ONE (07:27)
[2024-06-04 08:00] VITALS: PULSE 74
[2024-06-04 08:17] VITALS: BP 110/54; PULSE 76; RESP 18; TEMP 98; O2SAT 96
[2024-06-04] MEDS ORDERED: FLUC100T34 PO (10:31)
[2024-06-04] MEDS ORDERED: CEFP200T15 PO (10:31)
[2024-06-04] MEDS ORDERED: LINE1TAB6 PO (10:33)
[2024-06-04] MEDS: HYDROmorphone HCL 2 MG/ML VL/or syr IV PRN (11:02)
[2024-06-04] MEDS: ONDANSETRON HCL 4 MG/2 ML VIAL IV PRN (11:32)
[2024-06-04 11:40] VITALS: BP 128/57; PULSE 78; RESP 17; TEMP 97.7; O2SAT 98
[2024-06-04 12:03] VITALS: BP 126/53; PULSE 80
--- NOTE | 2024-06-04 16:47 | DVHPN2 ---
Consult Progress Note Date Seen: Jun 04, 2024 Subjective Patient reports: Other (clarified with patient information on copay and that it would be $80 for antibiotics , drain tube is leaking at the site of where it connects to the bag stated by patient ) Objective vital signs Vital Sign Date Time Temp Pulse Resp B/P (MAP) Pulse Ox O2 Delivery O2 Flow Rate FiO2 06/04/24 13:23 82 134/88 06/04/24 11:40 97.7 17 98 97.7 06/04/24 08:00 Room Air* 0 21 Total Intake and Output 06/03/24 06/03/24 06/04/24 15:00 23:00 07:00 Intake Total 2400 ml 1000 ml Output Total 1600 ml 3 ml Balance 800 ml 997 ml medications Current Medications Medications Dose Ordered Sig/Lanette Route Start Time Stop Time Status Last Admin Dose Admin Atenolol 25 mg BID PO 05/10/24 10:00 Hold 05/10/24 21:38 25 MG Levothyroxine Sodium 125 mcg QAM@0600 PO 05/10/24 06:00 06/04/24 06:28 125 MCG Atorvastatin Calcium 40 mg HS PO 05/10/24 22:00 06/03/24 21:06 40 MG Acetaminophen 650 mg Q6HP PRN PO 05/09/24 23:00 05/23/24 15:13 650 MG Nitroglycerin 0.4 mg Q5MINP PRN SL 05/09/24 23:00 Enoxaparin Sodium 130 mg Q12HR SC 05/10/24 10:00 UNV Pantoprazole Sodium 40 mg DAILY IV 05/11/24 10:00 06/04/24 11:00 40 MG Baclofen 5 mg Q8HP PRN PO 05/12/24 19:15 Nifedipine 10 mg Q6HR PO 05/13/24 18:00 06/04/24 12:30 10 MG Metoprolol Succinate 25 mg TID PO 05/13/24 14:00 06/04/24 13:23 25 MG Lisinopril 40 mg DAILY PO 05/14/24 10:00 06/04/24 11:03 40 MG Amiodarone HCl 200 mg Q12HR PO 05/15/24 10:00 06/04/24 11:02 200 MG Sodium Chloride 10 ml QSHIFT@ IV 05/18/24 22:00 06/04/24 11:04 10 ML Hydralazine HCl 5 mg Q4HP PRN IV 05/24/24 12:00 05/24/24 13:46 5 MG Furosemide 40 mg DAILY IV 05/27/24 10:00 06/04/24 11:00 40 MG Sodium Acetate 20 meq/Sodium Phosphate 20 meq/ Potassium Acetate 20 meq/Potassium Phosphate 22 meq/ Magnesium Sulfate 12 meq/ Multivitamins 10 ml/Chromium/ Copper/Manganese/ Zinc 1 ml/Amino Acids/Dextrose 844 ml @ 35 mls/hr Q24H7M IV 05/28/24 22:00 05/29/24 21:59 Cancel Enoxaparin Sodium 40 mg DAILY SC 05/29/24 10:00 06/04/24 10:54 40 MG Cefpodoxime Proxetil 200 mg BID PO 05/29/24 22:00 06/04/24 10:00 200 MG Linezolid 600 mg BID PO 05/29/24 22:00 06/04/24 11:05 600 MG Enteral Nutritional Formula 240 ml TIDWM PO 05/31/24 08:00 06/04/24 12:14 240 ML Fluconazole 400 mg DAILY PO 05/31/24 10:00 06/04/24 11:03 400 MG Ondansetron HCl 4 mg Q6HPRN PRN IV 06/01/24 14:00 06/04/24 11:32 4 MG Hydromorphone HCl 0.2 mg Q3HPRN PRN IV 06/03/24 17:45 06/03/24 18:37 0.2 MG Hydromorphone HCl 0.4 mg Q3HPRN PRN IV 06/03/24 17:45 06/04/24 11:02 0.4 MG PHYSICAL EXAM: - GENERAL: Alert and oriented x 3. No acute distress. Well-nourished. - EYES: EOMI. Anicteric. HENT: Moist mucous membranes. No scleral icterus. No cervical lymphadenopathy. - LUNGS: Clear to auscultation bilaterally. No accessory muscle use. - CARDIOVASCULAR: Regular rate and rhythm. No murmur. No JVD. - ABDOMEN: Soft, non-tender and non-distended. No palpable masses. small skin tear around bottem part of EB drain at base of skin - EXTREMITIES: No edema. Non-tender.?SKIN: No rashes or lesions. Warm. - NEUROLOGIC: No focal neurological deficits. CN II-XII grossly intact, but not individually tested. - PSYCHIATRIC: Cooperative. Appropriate mood and affect. laboratory and microbiology Laboratory Tests 06/03/24 14:39 Test 06/03/24 14:39 Range/Units Serum Glucose 124 H 74-106 mg/dL Problem List/Assessment/Plan Problems(with codes): (1) VRE infection (vancomycin resistant Enterococcus) (2) Intra-abdominal abscess (3) Diverticulitis of intestine with perforation and abscess (4) Elevated brain natriuretic peptide (BNP) level (5) Non-STEMI (non-ST elevated myocardial infarction) (6) Elevated LFTs (7) Diverticulitis (8) Urinary tract infection (9) Cholelithiasis Problem List/Assessment/Plan ID Problem List: - Acute diverticulitis - Diverticular abscess - Acute abdominal pain UTI - Elevated troponin - Hypokalemia - Morbid obesity - Diarrhea - Hypertension - Hypothyroidism Assessment: This is a 73 y.o. female with a past medical history of hypertension, hyperlipidemia, kidney transplant, hypothyroidism, morbid obesity, and end-stage renal disease who presents with lower abdominal pain on May 09. The pain was nonradiating and associated with nausea, diarrhea, and poor appetite. The patient visited [facility] urgent care on May 09 for unprovoked onset of persisting symptoms except with the exception of diarrhea for the past days. The patient reported experiencing urinary retention, constipation, and fever initially for 2 days, then it subsided on its own. CT abdomen revealed diverticulitis with air in the retroperitoneum, findings suggestive of abscess, cholestasis, and small hiatal hernia. Chest X-ray showed no acute findings, and HIDA scan showed nonvisualization of the gallbladder suggestive of cystic duct obstruction. Repeat CT abdomen on May 15 showed moderate fat stranding and induration of the central mesentery, with a 6.5 by 6.2 cm collection of air and minimal fluid suggestive of acute diverticulitis with rupture and associated abscess. The patient underwent IR drainage of the pelvic abscess on July 16. Culture revealed E. coli and Proteus mirabilis, both sensitive to ANCEF and Unison. The patient has been on ceftriaxone and Flagyl. 05/21: appears to require prolonged TPN needs , pharmacy is not providing ceftazidime. 05/22: patient has had over 135 ccs of drainage , likely sufficient for antibiotics to be appropriate monotherapy for treatment 05/23: white count has normalized, microbiology shows E Coli, proteus , enterococcus and yeast. the E Coli and proteus are sensitive to Zosyn. Ct scan shos a persistent abscess in the central pelvis 7.76 by 6.6 . pictile catheter should be removed and a new one placed . does not appear that patient would have any drug contraindications to vancomycin or fluconazole and start by IV because patient is NPO 05/24: she had a Ct guided drainage adjustment and pic tail was placed on her abdomen on a different location , unclear how much drainage was relieved from procedure. New piccline placed. White count continues to downtrend 05/25:white count coming down , more output coming from the drain. 05/26: Ct abdomen and pelvis doen and shows improved sigmoid diverticulitis and the catheter is sen in the midline abdomen with fluid collection in 3.9 cm , better from last which was 7.[address] Dumont is recommending close observation and IV antibiotics , agree with plan 05/29: Patients daughter requested we stop TPN , so that has been stopped . Patient is continuing on clear liquid idet as of 2 days and slowly transitioning oral antibiotics 05/30: Doing well on oral therapy , is off TPN 06/01: tolerating oral antibiotics as well as clear liquid diet 06/02: patient is now 7 days out from pigtail catheter placement and significant amount of drainage has come out , likely abscess is less than 3 cm in size and amenable to oral antibiotics Plan: - recommend patient have wound care as well as homehealth inspections of EB drain to ensure leaking is not an ongoing problem - recommend removing piccline - recommend oral antibiotics for 14 more days , oral fluconazole and linezolid and cefpodoxime - Continue to advance diet per general surgery recommendations - No need for picc line of IV antibiotics at this time - Patient drain management will be managed by general surgery - defer to general surgery for ongoing needs for drainage, will need to follow general surgery as outpatient - Follow up with infectious disease in [address] of abdomen and pelvis done Isolation Precautions: standard Assessment and plan were discussed with the patient as written above. Plan is subject to change pending incorporation of new incoming information/diagnostics. Updates may be added as an addendum at the bottom (OR TOP) of this note. Thank you for the interesting consult. ID will continue to follow. Please contact Infectious Disease for any questions or concerns. Quincy Wooten M.D. [facility] Plan discussed with: Other Dietary Evaluation Review Comments: 1) Advance pt diet when medically feasible to a [id number] diet 2) Continue current plan of care Expected Outcomes/Goals: F/U in 3-5 days QUINCY WOOTEN MD Jun 04, 2024 16:47
--- NOTE | 2024-06-04 18:35 | DVHPN2 ---
Progress Note - Dictate Date Seen: Jun 04, 2024 Medical Necessity Reason Pt with a Central, PICC or Fol: Yes Subjective Patient was seen and evaluated in follow up. Patient has no new complaints at this time. Patient denies any cardiac symptoms. Patient is cardiac stable for discharge. vital signs Vital Sign Date Time Temp Pulse Resp B/P (MAP) Pulse Ox O2 Delivery O2 Flow Rate FiO2 06/04/24 13:23 82 134/88 06/04/24 11:40 97.7 17 98 97.7 06/04/24 08:00 Room Air* 0 21 Total Intake and Output 06/03/24 06/03/24 06/04/24 15:00 23:00 07:00 Intake Total 2400 ml 1000 ml Output Total 1600 ml 3 ml Balance 800 ml 997 ml medications Current Medications Medications Dose Ordered Sig/Lanette Route Start Time Stop Time Status Last Admin Dose Admin Enoxaparin Sodium 130 mg Q12HR SC 05/10/24 10:00 UNV Sodium Acetate 20 meq/Sodium Phosphate 20 meq/ Potassium Acetate 20 meq/Potassium Phosphate 22 meq/ Magnesium Sulfate 12 meq/ Multivitamins 10 ml/Chromium/ Copper/Manganese/ Zinc 1 ml/Amino Acids/Dextrose 844 ml @ 35 mls/hr Q24H7M IV 05/28/24 22:00 05/29/24 21:59 Cancel objective GENERAL: Awake, alert, oriented. Morbidly obese. LUNGS: Clear. CARDIOVASCULAR: Tachycardic. ABDOMEN: Soft, tender in the left lower quadrant, nondistended, bowel sounds present all 4 quadrants, no guarding. laboratory and microbiology Laboratory Tests 06/03/24 14:39 Test 06/03/24 14:39 Range/Units Serum Glucose 124 H 74-106 mg/dL Problem List Atrial fibrillation with rapid ventricular response. Acute diverticulitis with microperforation. Morbid obesity. Profound leukocytosis. Acute abdominal pain. Elevated troponin. Hypokalemia. UTI. Morbid obesity. Diarrhea. Hypertension. Hypothyroidism. Assessment/Plan Continued all current supportive medical care. Amiodarone. Lipitor, Metoprolol. IV antibiotics as ordered. Diuretics with Lasix. Dilaudid for pain management. Synthroid. GI prophylactics. Lisinopril, Nifedipine. Additional plan as per the hospital course. Dietary Evaluation Review Comments: 1) Advance pt diet when medically feasible to a [id number]/[id number] diet 2) Continue current plan of care Expected Outcomes/Goals: F/U in 3-5 days Plan discussed with: Patient TRESA MCFARLANE MD Jun 04, 2024 18:35
--- NOTE | 2024-06-04 21:02 | DVHDS2 ---
Discharge Summary Date of Admission May 09, 2024 at 22:59 Date of Discharge: Jun 04, 2024 Admitting Diagnosis Acute diverticulitis Labs/Diagnostic Data: Laboratory Results Test 06/03/24 14:39 05/28/24 18:34 05/28/24 05:02 05/27/24 14:55 White Blood Count 5.4 10^3/uL (4.4-10.8) Red Blood Count 3.63 10^6/uL (4.0-5.20) Hemoglobin 10.8 g/dL (12.2-16.2) Hematocrit 32.9 % (36.0-46.0) Mean Corpuscular Volume 90.5 fL (80.0-100.0) Mean Corpuscular Hemoglobin 29.8 pg (28.0-32.0) Mean Corpuscular Hemoglobin Concent 32.9 g/dL (32.0-36.0) Red Cell Distribution Width 15.7 % (11.8-14.3) Platelet Count 395 10^3/uL (140-450) Mean Platelet Volume 8.1 fL (6.9-10.8) Neutrophils (%) (Auto) 45.3 % (37.0-80.0) Lymphocytes (%) (Auto) 35.0 % (10.0-50.0) Monocytes (%) (Auto) 11.6 % (0.0-12.0) Eosinophils (%) (Auto) 7.6 % (0.0-7.0) Basophils (%) (Auto) 0.5 % (0.0-2.0) Neutrophils # (Auto) 2.4 10 ^3/uL (1.6-8.6) Lymphocytes # (Auto) 1.9 10 ^3/uL (0.4-5.4) Monocytes # (Auto) 0.6 10 ^3/uL (0-1.3) Eosinophils # (Auto) 0.4 10 ^3/uL (0-0.8) Basophils # (Auto) 0 10 ^3/uL (0-0.2) Nucleated Red Blood Cells 0.0 % Sodium Level 136 mmol/L (136-145) Potassium Level 3.3 mmol/L (3.5-5.1) Chloride Level 105 mmol/L (98-107) Carbon Dioxide Level 21 mmol/L (20-31) Anion Gap 10 (5-15) Blood Urea Nitrogen 14 mg/dL (9-23) Creatinine 1.14 mg/dL (0.550-1.02) Glomerular Filtration Rate Calc 50 mL/min (>90) BUN/Creatinine Ratio 12.3 (10.0-20.0) Serum Glucose 124 mg/dL (74-106) Calcium Level 9.3 mg/dL (8.7-10.4) Phosphorus Level 4.4 mg/dL (2.4-5.1) Magnesium Level 1.4 mg/dL (1.6-2.6) Total Bilirubin 0.4 mg/dL (0.2-1.0) Aspartate Amino Transferase (AST) 23 U/L (13-40) Alanine Aminotransferase (ALT) 16 U/L (7-40) Alkaline Phosphatase 82 U/L (46-116) Total Protein 6.4 g/dL (5.7-8.2) Albumin 3.7 g/dL (3.2-4.8) Thyroid Stimulating Hormone (TSH) 0.46 uIU/mL (0.55-4.78) POC Glucose 110 mg/dl (70-106) Random Vancomycin Level 19.2 ug/mL (5-10) Vancomycin Level Trough 28.2 ug/mL (5-10) Test 05/27/24 04:21 05/25/24 16:44 05/24/24 13:40 05/22/24 06:00 Triglycerides Level 254 mg/dL (< 150) Stool Occult Blood Negative (Negative) Stool Occult Blood Sample #3 (Negative) Prothrombin Time 11.6 sec (9.3-11.8) Prothrombin Time INR 1.10 (0.9-1.15) Activated Partial Thromboplast Time 27.8 SEC (24.5-34.5) Estimated GFR () 136 mL/min Estimated GFR (Non- 112 mL/min Test 05/18/24 07:53 05/11/24 10:52 05/10/24 05:25 05/09/24 23:42 Platelet Estimate Increased Lactate Dehydrogenase 296 U/L (120-246) Hemoglobin A1c 5.5 % A1C (<5.7) Vitamin B12 Level 313 pg/mL (211-911) Vitamin D 25-Hydroxy 48.6 ng/mL (30.0-100) Hepatitis B Surface Antigen Negative (Negative) Hepatitis C Antibody Negative (Negative) Lactic Acid Level 0.7 mmol/L (0.4-2.0) Test 05/09/24 23:20 05/09/24 21:14 05/09/24 20:14 Troponin I High Sensitivity 307 ng/L (</=34) Urine Color [place] (Yellow) Urine Clarity Turbid (Clear) Urine pH 6.0 (5.0-9.0) Urine Specific [place] 1.024 (1.001-1.035) Urine Protein 3+ (Negative) Urine Ketones Trace (Negative) Urine Blood 1+ /uL (Negative) Urine Nitrite Negative (Negative) Urine Bilirubin 1+ (Negative) Urine Urobilinogen 3 mg/dL (Negative) Urine Leukocyte Esterase 3+ /uL (Negative) Urine RBC 4 /hpf (0 - 4) Urine WBC 316 /hpf (0 - 5) Urine Squamous Epithelial Cells Few /hpf (<5) Urine Bacteria None seen /hpf (None Seen) Urine Hyaline Casts Mod /lpf (0 - 2) Urine Granular Casts Few /lpf (0) Urine Mucus Moderate (None Seen) Urine Glucose Normal mg/dL (Normal) B-Type Natriuretic Peptide 722.28 pg/mL (0-100) Lipase 29 U/L (12-53) Other Laboratory Tests 06/03/24 14:39 Brief Hx & Hospital Course: Vane Reyna is a 73-year-old F with a Past Medical History pertinent for Hypertension, Dyslipidemia, Hypothyroidism and 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 Initial CT Abdomen Pelvis without contrast reported diverticulitis with air in the retroperitoneum; no findings to suggest abscess at this time; cholelithiasis; small bilateral hernia. Initial Troponin was elevated and downtrended with latest result 307. EKG showed A-Fib with RVR of unknown time. Cardiology, Gastroenterology and General Surgery consulted. Patient was kept under close observation, kept NPO and given IV antibiotics. Home medications were reconciled and resumed as ordered. IR consulted for evaluation for possible drainage of the localized collection. Repeated CT Abdomen on 05/15/24 reported moderate fat stranding and induration of the central mesentery, with a 6.5 by 6.2 cm collection of air and minimal fluid suggestive of acute diverticulitis with rupture and associated abscess. Patient underwent IR drainage of the pelvic abscess on 05/15/2024. Cultures revealed E.Coli and Proteus Mirabilis, both sensitive to ANCEF and Unison. Nutritional support was provided with TPN. WBC normalized. Microbiology showed E Coli, proteus, enterococcus and yeast. The E Coli and proteus are sensitive to Zosyn. Repeated CT scan showed a persistent abscess in the central pelvis 7.76 by 6.6. Patient underwent replacement of pigtail on 05/24/24 with more output noted coming from the drain after. Latest repeated CT Abdomen Pelvis showed improved sigmoid diverticulitis and the catheter is seen in the midline abdomen with fluid collection in 3.9 cm , better from last which was 7.[address] Dumont recommended close observation and IV antibiotics. Patient's daughter requested that we stop TPN on 05/29/24 and patient was started on clear liquid diet. Patient was slowly transitioned to oral antibiotics. Patient did well on oral therapy and off TPN. Diet was advanced and tolerated. Patient has had significant amount of drainage come out. SW was consulted for home health inspections of EB drain to ensure leaking is not an ongoing problem. Patient is recommended for oral antibiotics for 14 more days, oral Fluconazole, Linezolid and Cefpodoxime per ID. Patient's drain management will be managed by general surgery. Patient will need to follow up with general surgery as outpatient. Also follow up with Infectious Disease in [address] of Abdomen and Pelvis. Patient's acute symptoms overall stabilized and improved. Patient is cleared for discharge from specialists standpoints and is stable at the time of discharge. Physical exam: Vitals and nursing notes reviewed. General: In no acute distress, morbidly obese. HEENT: Normocephalic atraumatic, mucous membranes moist and pink. Neck: Cervical and supraclavicular nodes normal without enlargement. Pulmonary: Clear to auscultation and percussion bilaterally. Cardiac: RRR. No murmur. Abdomen: Soft, tender, nondistended, bowel sounds present all 4 quadrants, no guarding. Musculoskeletal: No deformity. Neuro: Cranial nerves II through XII grossly intact, normal affect and speech, no focal motor deficits. Skin: Warm, dry, normal color and texture, no rash. Skin tear on left lower abdomen. Consults/Reason for consult Cardiology- Consult for Tachycardia. Surgical- Consult for Diverticulitis with probable perforation. Gastroenterology- Consult for Diverticulitis. Infectious Disease-Consult for intravenous antibiotic management. Operations or Procedures CT guided placement of 8.5 [place]ian pigtail drain into a midline lower intra- abdominal abscess. Performed on 05/15/2024. CT GUIDED PLACEMENT OF AN 8.5 FR DRAINAGE CATHETER WITHIN THE abdominal COLLECTION. Change of Drain cath on 05/24/2024. Condition at Discharge: Stable Final Diagnosis/Problems List Diverticulitis / abcess Discharge Disposition: Home with Health Services Discharge Instruct/Medications Diet: Cardiac 2g Na,low cholest Activity: Light activity Follow Up/Referral: Follow up with PCP in 1-2 weeks. Medications: Medications sent to pharmacy by Dr. Wooten. Continue home medications. Discharge Statement: "Patient was advised to return to the ER or call 911 if any headaches, dizziness, shortness of breath, chest pain, abdominal pain, bleeding, fevers, or worsening of medical condition. Patient was counseled about treatment plan, medications, possible side effects, patientverbalized understanding. All questions were answered to the best of my ability. This discharge took greater then 30 minutes in planning, reviewing documentation, counseling the patient, and discussing with other team members." ASSESSMENT ASSESSMENT Assessment Diverticulitis / abcess SMITHA MCFARLANE DO Jun 04, 2024 21:02
[2024-06-05] MEDS ORDERED: FLUC100T34 PO (16:42)
[2024-06-05] MEDS ORDERED: CEFP200T15 PO (16:42)
== END 2024-06-04 17:20 | disposition home health service (06) | DRG 871 ==
LOC: ER 18:03 → TELE 22:59 → TELE-CENTR 23:11
PROVIDERS: ADMIT Internal Medicine Nephrology; ATTEND Internal Medicine Nephrology
PROC: 0W9G3ZZ Drainage of Peritoneal Cavity, Percutaneous Approach (ICD-10-PCS; 2024-05-15)
PROC: 02HV33Z Insertion of Infusion Device into Superior Vena Cava, Percutaneous Approach (ICD-10-PCS; principal; 2024-05-18)
PROC: B548ZZA Ultrasonography of Superior Vena Cava, Guidance (ICD-10-PCS; 2024-05-18)
PROC: 0W9G30Z Drainage of Peritoneal Cavity with Drainage Device, Percutaneous Approach (ICD-10-PCS; 2024-05-24)
PROC: 02PYX3Z Removal of Infusion Device from Great Vessel, External Approach (ICD-10-PCS; 2024-05-24)
PROC: 02HV33Z Insertion of Infusion Device into Superior Vena Cava, Percutaneous Approach (ICD-10-PCS; 2024-05-24)
PROC: B548ZZA Ultrasonography of Superior Vena Cava, Guidance (ICD-10-PCS; 2024-05-24)
DX: A41.9 Sepsis, unspecified organism (principal); I21.A1 Myocardial infarction type 2; K65.1 Peritoneal abscess; N39.0 Urinary tract infection, site not specified; D68.69 Other thrombophilia; K57.20 Diverticulitis of large intestine with perforation and abscess without bleeding; I12.0 Hypertensive chronic kidney disease with stage 5 chronic kidney disease or end stage renal disease; E03.9 Hypothyroidism, unspecified; E66.01 Morbid (severe) obesity due to excess calories; E87.6 Hypokalemia; I48.91 Unspecified atrial fibrillation; E78.5 Hyperlipidemia, unspecified; N73.9 Female pelvic inflammatory disease, unspecified; K44.9 Diaphragmatic hernia without obstruction or gangrene; K80.20 Calculus of gallbladder without cholecystitis without obstruction; Z82.49 Family history of ischemic heart disease and other diseases of the circulatory system; Z79.01 Long term (current) use of anticoagulants; Z79.899 Other long term (current) drug therapy; Z83.3 Family history of diabetes mellitus; Z80.42 Family history of malignant neoplasm of prostate; Z68.29 Body mass index [BMI] 29.0-29.9, adult
CPT/HCPCS: 10005; 36415; 36569; 71045; 74150; 74176; 74177; 76937; 77012; 78226; 80053; 80069; 80202; 81001; 82270; 82306; 82607; 82962; 83036; 83605; 83615; 83690; 83735; 83880; 84100; 84443; 84478; 84484; 85025; 85610; 85730; 86803; 87077; 87081; 87086; 87186; 87205; 87340; 93005; 93306; 93925; 93971; 96374; 96375; 99291; G0378; J0713; J1815; J2003; J2248; J2250; J2405; J2470; J2543; J3470; J3480; J3490; J7060; J7131; P9047

== ENCOUNTER 2024-06-30 23:58 | Inpatient (IN) | payer OTHER ==
[~2024-06-30] VITALS: Ht 162.6 cm; Wt 118.5 kg
[~2024-06-30 23:58] MED LIST: ASCO500T11 PO; ATEN-60 PO; CEFP200T15 PO; CHOL20007 PO; FLUC100T34 PO; LEVO125T7 PO; LINE1TAB6 PO; LISI40TA16 PO; OMEG1400 PO; VITA1POW XX
--- NOTE | 2024-07-01 00:17 | ED.PDOC ---
History of Present Illness HPI Comments 74-year-old female who came to ER via EMS for generalized weakness. Patient was just recently discharged here June 04, wherein she was admitted for 25 days, with a discharge diagnosis of diverticulitis/abscess , status post CT guided placement of 8.5 Qat[place] pigtail drain into a midline lower intra-abdominal abscess. Performed on 05/15/2024. For the past 2 days, was noted by family members that patient is generally weak with body malaise. Patient denies any acute pain. Blood sugar on scene was 133, with a blood pressure of 102/71 mm Hg on scene Chief Complaint: General Weakness Time Seen by MD: 00:17 Primary Care Provider: JUAN JOSÉ Reviewed Notes: Nurses Notes Allergies: Coded Allergies: NO KNOWN ALLERGIES (Unverified , 05/09/24) Home Meds Active Scripts Fluconazole (Fluconazole) 100 Mg Tab, 400 MG PO DAILY for 14 Days, #56 TAB Prov:QUINCY HURST MD 06/05/24 Cefpodoxime Proxetil (Cefpodoxime Proxetil) 200 Mg Tab, 1 TAB PO BID, #14 TAB Prov:QUINCY HURST MD 06/05/24 Linezolid (Zyvox) 600 Mg Tab, 600 MG PO BID for 14 Days, #28 TAB Prov:QUINCY HURST MD 06/04/24 Cefpodoxime Proxetil (Cefpodoxime Proxetil) 200 Mg Tab, 200 MG PO BID for 14 Days, #28 TAB Prov:QUINCY HURST MD 06/04/24 Fluconazole (Fluconazole) 100 Mg Tab, 400 MG PO DAILY for 14 Days, #56 TAB Prov:QUINCY HURST MD 06/04/24 Reported Medications Ascorbic Acid (VITAMIN C TABLET) 500 Mg Tb, PO, TAB 05/10/24 Vitamin A (Synthetic) (Vitamin A) 1 Pow Pow, 1 XX, POW 05/10/24 Cholecalciferol (VITAMIN D3) 2,000 Unit Tab, PO, TAB 05/10/24 Alvord-3 Fatty Acids (Alvord-3) 1,400 Mg Cap, PO, CAP 05/10/24 Levothyroxine Sodium (Levothyroxine Sodium) 125 Mcg Tab, 125 MCG PO QAM for 30 Days, MCG 05/10/24 Lisinopril (Lisinopril) 40 Mg Tab, 40 MG PO DAILY for 30 Days, MG 05/10/24 Atenolol (Atenolol) 25 Mg Tab, 25 MG PO BID for 30 Days, MG 05/10/24 Information Source: Patient, Emergency Med Personnel Mode of Arrival: EMS Severity: Moderate Timing: Days Duration: Since onset Prehospital treatment: Accucheck Past Medical History PAST MEDICAL HISTORY: High Lipids, HTN, Thyroid Past Medical History (Other): Diverticulitis 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 Family History Family History: Reviewed,noncontributory to illness Social History Smoker: Non-Smoker Alcohol: Denies ETOH Use Drugs: Denies Drug Use Lives In: Home Constitutional: reports: malaise, weakness; denies: chills, diaphoresis, fatigue, fever, sweats, others EENTM: denies: blurred vision, double vision, ear bleeding, ear discharge, ear drainage, ear pain, ear ringing, eye pain, eye redness, hearing loss, mouth pain, mouth swelling, nasal discharge, nose bleeding, nose congestion, nose pain, photophobia, tearing, throat pain, throat swelling, voice changes, others Respiratory: denies: cough, hemoptysis, orthopnea, SOB at rest, shortness of breath, SOB with excertion, stridor, wheezing, others Cardiovascular: denies: chest pain, dizzy spells, diaphoresis, Dyspnea on exertion, edema, irregular heart beat, left arm pain, lightheadedness, palpitations, PND, syncope, others Gastrointestinal: denies: abdomen distended, abdominal pain, blood streaked bowels, constipated, diarrhea, dysphagia, difficulty swallowing, hematemesis, melena, nausea, poor appetite, poor fluid intake, rectal bleeding, rectal pain, vomiting, others Genitourinary: denies: abnormal vagina bleeding, burning, dyspareunia, dysuria, flank pain, frequency, hematuria, incontinence, pain, , vagina discharge, urgency, others Neurological: denies: dizziness, fainting, headache, left sided numbness, left sided weakness, numbness, paresthesia, pre-existing deficit, right sided numbness, right sided weakness, seizure, speech problems, tingling, tremors, weakness, others Musculoskeletal: denies: back pain, gout, joint pain, joint swelling, muscle pain, muscle stiffness, neck pain, others Integumetry: denies: bruises, change in color, change in hair/nails, dryness, laceration, lesions, lumps, rash, wounds, others Allergic/Immunocompromised: denies: Difficulty Healing, Frequent Infections, Hives, Itching, others Hematologic/Lymphatic: denies: anemia, blood clots, easy bleeding, easy bruising, swollen glands, others Endocrine: denies: excessive hunger, excessive sweating, excessive thirst, excessive urination, flushing, intolerance to cold, intolerance to heat, unexplained weight gain, unexplained weight loss, others Psychiatric: denies: anxiety, bipolar disorder, depression, hopeless, panic disorder, schizophrenia, sleepless, suicidal, others Physical Exam General Appearance: No Apparent Distress, Normal HEENT: Normal ENT Inspection, Pharynx Normal, TMs Normal Neck: Full Range of Motion, Non-Tender, Normal, Normal Inspection Respiratory: Chest Non-Tender, Lungs Clear, No Accessory Muscle Use, No Respiratory Distress, Normal Breath Sounds Cardiovascular: No Edema, No JVD, No Murmur, No Gallop, Normal Peripheral Pulses, Regular Rate/Rhythm Breast Exam: Deferred Gastrointestinal: No Organomegaly, Non Tender, No Pulsatile Mass, Normal Bowel Sounds, Soft Genitalia: Deferred Pelvic: Deferred Rectal: Deferred Extremities: No calf tenderness, Normal capillary refill, Normal inspection, Normal range of motion, Non-tender, No pedal edema Musculoskeletal : Apperance: Normal Neurologic: Alert, 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 Was a procedure done?: No EKG EKG : Pulse Rate (adult): 79 Cardiac Rhythm: NSR Differential Dx Considerations may include: Anemia, electrolyte imbalance, sepsis, urinary tract infection, weakness, hypotension X-Ray, Labs, Meds, VS Vital Signs Date Time Temp Pulse Resp B/P (MAP) Pulse Ox O2 Delivery O2 Flow Rate FiO2 07/01/24 00:19 79 07/01/24 00:07 79 07/01/24 00:02 97.6 81 14 102/71 (81) 93 Lab Test 07/01/24 02:08 07/01/24 00:48 Range/Units Troponin I High Sensitivity 6 6 </=34 ng/L White Blood Count 7.7 4.4-10.8 10^3/uL Red Blood Count 3.14 L 4.0-5.20 10^6/uL Hemoglobin 9.4 L 12.2-16.2 g/dL Hematocrit 30.4 L 36.0-46.0 % Mean Corpuscular Volume 96.7 80.0-100.0 fL Mean Corpuscular Hemoglobin 29.9 28.0-32.0 pg Mean Corpuscular Hemoglobin Concent 30.9 L 32.0-36.0 g/dL Red Cell Distribution Width 19.0 H 11.8-14.3 % Platelet Count 265 140-450 10^3/uL Mean Platelet Volume 8.5 6.9-10.8 fL Neutrophils (%) (Auto) 50.9 37.0-80.0 % Lymphocytes (%) (Auto) 31.6 10.0-50.0 % Monocytes (%) (Auto) 10.1 0.0-12.0 % Eosinophils (%) (Auto) 6.9 0.0-7.0 % Basophils (%) (Auto) 0.5 0.0-2.0 % Neutrophils # (Auto) 3.9 1.6-8.6 10 ^3/uL Lymphocytes # (Auto) 2.4 0.4-5.4 10 ^3/uL Monocytes # (Auto) 0.8 0-1.3 10 ^3/uL Eosinophils # (Auto) 0.5 0-0.8 10 ^3/uL Basophils # (Auto) 0 0-0.2 10 ^3/uL Nucleated Red Blood Cells 0.1 % Prothrombin Time 11.5 9.3-11.8 sec Prothrombin Time INR 1.09 0.9-1.15 Activated Partial Thromboplast Time 27.5 24.5-34.5 SEC Sodium Level 140 136-145 mmol/L Potassium Level 4.3 3.5-5.1 mmol/L Chloride Level 112 H 98-107 mmol/L Carbon Dioxide Level 17 L 20-31 mmol/L Anion Gap 11 5-15 Blood Urea Nitrogen 36 H 9-23 mg/dL Creatinine 1.91 H 0.550-1.02 mg/dL Glomerular Filtration Rate Calc 27 >90 mL/min BUN/Creatinine Ratio 18.8 10.0-20.0 Serum Glucose 109 H 74-106 mg/dL Lactic Acid Level 1.3 0.4-2.0 mmol/L Calcium Level 9.1 8.7-10.4 mg/dL Magnesium Level 2.4 1.6-2.6 mg/dL Total Bilirubin < 0.2 L 0.2-1.0 mg/dL Aspartate Amino Transferase (AST) 29 13-40 U/L Alanine Aminotransferase (ALT) 22 7-40 U/L Alkaline Phosphatase 108 46-116 U/L Total Protein 6.0 5.7-8.2 g/dL Albumin 3.4 3.2-4.8 g/dL Exam: CT CT AB PEL WO CON-NO ORAL OR IV History: pain h/o recent abscess Comparison Study: CT CT AB PEL WO CON-NO ORAL OR IV on DOS: 05/26/24, CT CT ABD PELVIS W CON-ORAL IV on DOS: 05/23/24, CT CT AB PEL WO CON-NO ORAL OR IV on DOS: 05/18/24, CT CT AB PEL WO CON-NO ORAL OR IV on DOS: 05/14/24, CT CT AB PEL WITH IV CON ONLY on DOS: 05/11/24 Technique: Multidetector spiral CT of the abdomen was performed from lung bases to pubic symphysis. Imaging was performed without IV contrast. Axial, coronal and sagittal multiplanar reformats were obtained from the axial data set by the technologist. Radiation Dose : 1. Abdomen/Pelvis: CTDIvol 26.3 mGy, DLP 1575 mGy*cm. Findings: Evaluation of solid organs is limited due to lack of intravenous contrast use. Lung Bases: No acute or significant lung base finding. Normal heart size. No pleural or pericardial effusion. Liver: Diffuse steatosis. Gallbladder and Biliary Tree: Cholelithiasis. Spleen: Unremarkable Pancreas: The pancreas is grossly normal in appearance. Adrenal Glands: Unremarkable Kidneys: Kidneys are grossly normal without calculi or hydronephrosis. Bladder: Grossly unremarkable for degree of distention. Bowel: The stomach is grossly normal in appearance. Small bowel and colon are normal in caliber and distribution. Normal appendix is visualized in the right lower quadrant without findings of appendicitis. Scattered colonic diverticula. Ascites: Absent Lymphadenopathy: No mesenteric, retroperitoneal or periportal lymphadenopathy. Abdominal Wall and Mesentery: Unremarkable. Vasculature: The visualized abdominal aorta is normal in size and caliber. Evaluation of abdominal and pelvic vessels is limited due to lack of intravenous contrast. Pelvic Organs: Unremarkable Musculoskeletal: No aggressive focal bony lesions, acute fractures or dislocation. IMPRESSION: 1. No acute abdominal or pelvic findings. No abscess identified. Time of 1ST Reevaluation: 00:12 Reevaluation 1ST: Unchanged Patient Education/Counseling: Diagnosis, Treatment Family Education/Counseling: No Family Present Departure 1 Departure Time of Disposition: 02:48 Impression: Primary Impression: Acute renal injury Additional Impression: Dehydration Disposition: 09 ADMITTED INPATIENT Condition: Guarded Critical Care Note Critical Care Time?: Yes (35 min-critical care time only) Critical care comment: Hypotension Total critical care time: Approximately 36 minutes Due to a high probability of clinically significant, life threatening deterioration, the patient required my highest level of preparedness to intervene emergently and I personally spent this critical care time directly and personally managing the patient. This critical care time included obtaining a history; examining the patient; pulse oximetry; ordering and review of studies; arranging urgent treatment with development of a management plan; evaluation of patient's response to treatment; frequent reassessment; and, discussions with o ther providers. This critical care time was performed to assess and manage the high probability of imminent, life-threatening deterioration that could result in multi-organ failure. It was exclusive of separately billable procedures and treating other patients. Stability Stability form required: No Heart Score Heart Score: Heart Score Response (Comments) Value History Moderate Suspicious 1 EKG Normal 0 Age >65 2 Risk Factors >3 or Hx ASHD 2 Troponin Normal limit 0 Total 5 I personally scribed for RORY TURCIOS MD ([email or web address]) on 07/01/24 at 00:17. Electronically submitted by Yusef Rubalcava ([email or web address]). I personally scribed for RORY TURCIOS MD ([email or web address]) on 07/01/24 at 00:19. Electronically submitted by Yusef Rubalcava ([email or web address]). I personally scribed for RORY TURCIOS MD ([email or web address]) on 07/01/24 at 02:36. Electronically submitted by Yusef Rubalcava ([email or web address]). RORY TURCIOS MD Jul 01, 2024 00:17
--- NOTE | 2024-07-01 00:47 | DVH ---
CHEST RADIOGRAPH Indication: weakness, SOB Technique: Single frontal view of the chest was obtained COMPARISON: XY CHEST PORTABLE on DOS: 05/09/24 FINDINGS: Lines and Tubes: None Lungs: Clear Pleura: No effusion. No pneumothorax. Cardiomediastinal contours: Mild cardiomegaly. Bones: Unremarkable IMPRESSION: 1. No acute disease.
[2024-07-01 01:07] LABS: Basophils # (auto) 0 10 ^3/uL (0-0.2); Basophils % (auto) 0.5 % (0.0-2.0); Eosinophils # (auto) 0.5 10 ^3/uL (0-0.8); Eosinophils % (auto) 6.9 % (0.0-7.0); Hematocrit 30.4 % (36.0-46.0); Hemoglobin 9.4 g/dL (12.2-16.2); Lymphocytes # (auto) 2.4 10 ^3/uL (0.4-5.4); Lymphocytes % (auto) 31.6 % (10.0-50.0); Mean Corpuscular Hemoglobin 29.9 pg (28.0-32.0); Mean Corpuscular Hgb Conc. 30.9 g/dL (32.0-36.0); Mean Corpuscular Volume 96.7 fL (80.0-100.0); Monocytes # (auto) 0.8 10 ^3/uL (0-1.3); Monocytes % (auto) 10.1 % (0.0-12.0); Neutrophils # (auto) 3.9 10 ^3/uL (1.6-8.6); Neutrophils % (auto) 50.9 % (37.0-80.0); Nucleated Red Blood Cells % 0.1 %; Platelet Count (auto) 265 10^3/uL (140-450); Red Blood Cells 3.14 10^6/uL (4.0-5.20); White Blood Cell 7.7 10^3/uL (4.4-10.8)
[2024-07-01 01:19] LABS: Alanine Aminotransferase 22 U/L (7-40); Albumin 3.4 g/dL (3.2-4.8); Alkaline Phosphatase 108 U/L (46-116); Anion Gap 11 (5-15); Aspartate Aminotransferase 29 U/L (13-40); BUN/Creatinine Ratio 18.8 (10.0-20.0); Calcium 9.1 mg/dL (8.7-10.4); Magnesium 2.4 mg/dL (1.6-2.6); Potassium 4.3 mmol/L (3.5-5.1); Sodium 140 mmol/L (136-145)
[2024-07-01 01:21] LABS: Bilirubin, Total < 0.2 mg/dL (0.2-1.0); Blood Urea Nitrogen 36 mg/dL (9-23); Carbon Dioxide 17 mmol/L (20-31); Chloride 112 mmol/L (98-107); Glucose 109 mg/dL (74-106)
[2024-07-01 01:24] LABS: INR 1.09 (0.9-1.15); Partial Thromboplastin Time 27.5 SEC (24.5-34.5); Prothrombin Time 11.5 sec (9.3-11.8)
[2024-07-01] MEDS: IOHEXOL 300 MG/ML 100ML BOTTLE IJ ONE (01:31)
--- NOTE | 2024-07-01 02:00 | DVH ---
Exam: CT CT AB PEL WO CON-NO ORAL OR IV History: pain h/o recent abscess Comparison Study: CT CT AB PEL WO CON-NO ORAL OR IV on DOS: 05/26/24, CT CT ABD PELVIS W CON-ORAL IV on DOS: 05/23/24, CT CT AB PEL WO CON-NO ORAL OR IV on DOS: 05/18/24, CT CT AB PEL WO CON-NO ORAL O R IV on DOS: 05/14/24, CT CT AB PEL WITH IV CON ONLY on DOS: 05/11/24 Technique: Multidetector spiral CT of the abdomen was performed from lung bases to pubic symphysis. Imaging was performed without IV contrast. Axial, coronal and sagittal multiplanar reformats were ob tained from the axial data set by the technologist. Radiation Dose : 1. Abdomen/Pelvis: CTDIvol 26.3 mGy, DLP 1575 mGy*cm. Findings: Evaluation of solid organs is limited due to lack of intravenous contrast use. Lung Bases: No acute or significant lung base finding. Normal heart size. No pleural or pericardial effusion. Liver: Diffuse steatosis. Gallbladder and Biliary Tree: Cholelithiasis. Spleen: Unremarkable Pancreas: The pancreas is grossly normal in appearance. Adrenal Glands: Unremarkable Kidneys: Kidneys are grossly normal without calculi or hydronephrosis. Bladder: Grossly unremarkable for degree of distention. Bowel: The stomach is grossly normal in appearance. Small bowel and colon are normal in caliber and d istribution. Normal appendix is visualized in the right lower quadrant without findings of appendici tis. Scattered colonic diverticula. Ascites: Absent Lymphadenopathy: No mesenteric, retroperitoneal or periportal lymphadenopathy. Abdominal Wall and Mesentery: Unremarkable. Vasculature: The visualized abdominal aorta is normal in size and caliber. Evaluation of abdominal a nd pelvic vessels is limited due to lack of intravenous contrast. Pelvic Organs: Unremarkable Musculoskeletal: No aggressive focal bony lesions, acute fractures or dislocation. IMPRESSION: 1. No acute abdominal or pelvic findings. No abscess identified. Radiation optimization: All CT scans at this facility use at least one of these dose optimization [place] hniques: automated exposure control mA and/or kV adjustment per patient size (includes targeted exam s where dose is matched to clinical indication) or iterative reconstruction.
[2024-07-01] MEDS: SODIUM CHLORIDE 0.9% 500 ML IV ONE (02:06)
[2024-07-01 05:05] VITALS: PULSE 63; RESP 16; O2SAT 100
[2024-07-01] MEDS: SODIUM CHLORIDE 0.9% 1,000 ML IV ONE (05:23)
[2024-07-01 06:25] LABS: Urine Bacteria MANY /hpf (None Seen); Urine Blood Negative /uL (Negative); Urine Clarity Turbid (Clear); Urine Color Light-Yellow (Yellow); Urine Hyaline Cast MANY /lpf (0 - 2); Urine Protein, UAD 1+ (Negative); Urine Specific Gravity 1.015 (1.001-1.035); Urine Sperm PRESENT /hpf (None Seen); Urine Urobilinogen Normal (Negative); Urine WBC 282 /hpf (0 - 5)
[2024-07-01] MEDS ORDERED: MORPHINE SULFATE INJ 2 MG/ml SYRG IV PRN (10:30)
[2024-07-01] MEDS ORDERED: ACETAMINOPHEN 325 MG TAB PO PRN (10:30)
--- NOTE | 2024-07-01 10:48 | DVHHP2 ---
History of Present Illness History of Present Illness 74-year-old female w pmhx Hypothyroid, hypertension and dyslipidemia who came to ER via EMS for generalized weakness. Patient was just recently discharged here June 04, wherein she was admitted for 25 days, with a discharge diagnosis of diverticulitis/abscess , status post CT guided placement of 8.5 [place]bourgish pigtail drain into a midline lower intra-abdominal abscess. Performed on 05/15/2024. The drain was removed and incisions healing well and no swelling or rash or drainage in the region. For the past 2 days, was noted by family members that patient is generally weak with body malaise. Patient denies any acute pain. Per EMS, Blood sugar on scene was 133, with a blood pressure of 102/71 mm Hg on scene. Patient ROS include weakness, dysuria, fatigue, diarrhea x6 per day for past approximate 1 week. Review of Systems Review of Systems As per HPI Allergies: Coded Allergies: NO KNOWN ALLERGIES (Unverified , 05/09/24) Exam Vital Signs Vital Signs Date Time Temp Pulse Resp B/P (MAP) Pulse Ox O2 Delivery O2 Flow Rate FiO2 07/01/24 08:18 73 15 95 Room Air 07/01/24 08:18 98.7 133/47 (75) 98.7 07/01/24 05:05 0 21 Exam GEN: Healthy appearing, well-developed, NAD. HEENT: NC/AT; MMM. CV: RRR, no m/r/g. LUNGS: Bibasilar rales ABD: Soft, NT/ND, NBS, no masses or organomegaly. EB drain incision healing well. No drainage, erythema EXT: skin Warm, well perfused. no rashes. Pitting edema 1 to 2+ bilaterally NEURO: Ambulating with no limitations. No focal deficits. Weakness in all extremities 3 of 5 Labs/Xrays Labs Test 07/01/24 05:28 07/01/24 02:08 07/01/24 00:48 Range/Units Urine Color Light-yellow Yellow Urine Clarity Turbid H Clear Urine pH 6.0 5.0-9.0 Urine Specific [place] 1.015 1.001-1.035 Urine Protein 1+ H Negative Urine Ketones Negative Negative Urine Blood Negative Negative /uL Urine Nitrite 1+ H Negative Urine Bilirubin Negative Negative Urine Urobilinogen Normal Negative mg/dL Urine Leukocyte Esterase 3+ Negative /uL Urine RBC 2 0 - 4 /hpf Urine WBC 282 0 - 5 /hpf Urine Squamous Epithelial Cells Few <5 /hpf Urine Transitional Epithelial Cells Few <2 /hpf Urine Renal Epithelial Cells Few None Seen /hpf Urine Bacteria Many H None Seen /hpf Urine Hyaline Casts Many 0 - 2 /lpf Urine Sperm Present None Seen /hpf Urine Glucose Normal Normal mg/dL Troponin I High Sensitivity 6 </=34 ng/L White Blood Count 7.7 4.4-10.8 10^3/uL Red Blood Count 3.14 L 4.0-5.20 10^6/uL Hemoglobin 9.4 L 12.2-16.2 g/dL Hematocrit 30.4 L 36.0-46.0 % Mean Corpuscular Volume 96.7 80.0-100.0 fL Mean Corpuscular Hemoglobin 29.9 28.0-32.0 pg Mean Corpuscular Hemoglobin Concent 30.9 L 32.0-36.0 g/dL Red Cell Distribution Width 19.0 H 11.8-14.3 % Platelet Count 265 140-450 10^3/uL Mean Platelet Volume 8.5 6.9-10.8 fL Neutrophils (%) (Auto) 50.9 37.0-80.0 % Lymphocytes (%) (Auto) 31.6 10.0-50.0 % Monocytes (%) (Auto) 10.1 0.0-12.0 % Eosinophils (%) (Auto) 6.9 0.0-7.0 % Basophils (%) (Auto) 0.5 0.0-2.0 % Neutrophils # (Auto) 3.9 1.6-8.6 10 ^3/uL Lymphocytes # (Auto) 2.4 0.4-5.4 10 ^3/uL Monocytes # (Auto) 0.8 0-1.3 10 ^3/uL Eosinophils # (Auto) 0.5 0-0.8 10 ^3/uL Basophils # (Auto) 0 0-0.2 10 ^3/uL Nucleated Red Blood Cells 0.1 % Prothrombin Time 11.5 9.3-11.8 sec Prothrombin Time INR 1.09 0.9-1.15 Activated Partial Thromboplast Time 27.5 24.5-34.5 SEC Sodium Level 140 136-145 mmol/L Potassium Level 4.3 3.5-5.1 mmol/L Chloride Level 112 H 98-107 mmol/L Carbon Dioxide Level 17 L 20-31 mmol/L Anion Gap 11 5-15 Blood Urea Nitrogen 36 H 9-23 mg/dL Creatinine 1.91 H 0.550-1.02 mg/dL Glomerular Filtration Rate Calc 27 >90 mL/min BUN/Creatinine Ratio 18.8 10.0-20.0 Serum Glucose 109 H 74-106 mg/dL Lactic Acid Level 1.3 0.4-2.0 mmol/L Calcium Level 9.1 8.7-10.4 mg/dL Magnesium Level 2.4 1.6-2.6 mg/dL Total Bilirubin < 0.2 L 0.2-1.0 mg/dL Aspartate Amino Transferase (AST) 29 13-40 U/L Alanine Aminotransferase (ALT) 22 7-40 U/L Alkaline Phosphatase 108 46-116 U/L Total Protein 6.0 5.7-8.2 g/dL Albumin 3.4 3.2-4.8 g/dL Assessment/Plan Assessment/Plan #Acute complicated cystitis UA concerning for UTI, along with dysuria-start broad-spectrum given recent admission #Acute abdominal pain - CT abdomen pelvis negative for acute process #Recent diverticulitis status post abscess drainage--continue IV antibiotics similar to outpatient antibiotics (Diflucan, cefoxitin, linezolid) #Anemia-increased RDW and hemoglobin 10 0.8-9.4-monitor hemoglobin on CBC #Intractable diarrhea--stool studies, C diff given recent admission antibiotics. Stool studies. IV hydration #GÓMEZ due to VMN, with azotemia- creatinine 1.14 to 1.91, IV hydration and follow up creatinine BNP daily #Acidosis NAGMA, likely from diarrhea. bicarb 21 to 17 Diet - regular diet GI prophylaxis tolerating diet DVT prophylaxis Lovenox subQ Med surge Full code Plan discussed with: Patient, Spouse My Orders Orders - CORONA ROBERTSON MD Procedure Category Date Status Time Admit ADMIT 07/01/24 Transmitted 10:22 Code Status CODE 07/01/24 Transmitted 10:22 Hydrocodone-Acet PHA 07/01/24 Logged 5/325mg Tab ([place] 10:30 Ondansetron Hcl PHA 07/01/24 Logged (Zofran) 10:30 Enoxaparin Sodium PHA 07/02/24 Logged (Lovenox) 10:00 Complete Blood Count LAB 07/02/24 Verified 04:00 Comprehensive LAB 07/02/24 Verified Metabolic Panel 04:00 Acetaminophen Tablet PHA 07/01/24 Logged (Tylenol Tablet) 10:30 Maintain Bed Rest SRINI 07/01/24 In Process 10:22 Morphine Sulfate PHA 07/01/24 Logged Injection 10:30 Atenolol Tablet PHA 07/01/24 Logged (Tenormin Tablet) 22:00 (Nf) Levothyroxine PHA 07/02/24 Logged Sodium 07:00 (Nf) Lisinopril PHA 07/02/24 Logged 10:00 Date of Service: Jul 01, 2024 Billing Provider: CORONA ROBERTSON MD Common Visit Codes: [id number] INP/OBS CARE (HIGH) CORONA ROBERTSON MD Jul 01, 2024 10:47
[2024-07-01] MEDS: FLUCONAZOLE 100 MG TAB PO ONE (11:05)
[2024-07-01] MEDS: metroNIDAZOLE 500MG/100ML 100 ML IV SCH (14:00)
[2024-07-01] MEDS ORDERED: VANCOMYCIN PER PHARMACY 0 MG IV SCH (15:45)
[2024-07-01 17:32] VITALS: BP 131/53; PULSE 84; RESP 20; TEMP 97.3; O2SAT 97
[2024-07-01] MEDS: VANCOMYCIN 1.5GM/300ML 300 ML IV ONE (18:00)
[2024-07-01 18:34] VITALS: BP 131/53; PULSE 84; RESP 20; TEMP 97.3; O2SAT 97
[2024-07-01] MEDS ORDERED: ATOR40TA52 PO (18:53)
[2024-07-01] MEDS ORDERED: INFLUENZA TRIVALENT 2024-2025 0.5 ML INJ IM ONE (19:00)
[2024-07-01 20:00] VITALS: O2SAT 97
[2024-07-01 21:00] VITALS: BP 158/48; PULSE 90; RESP 16; TEMP 98.1; O2SAT 97
[2024-07-01] MEDS: ATENOLOL 25 MG TAB PO SCH (21:00)
[2024-07-01] MEDS: CEFEPIME 1GM/ 50ML 50 ML IV SCH (22:00)
[2024-07-02] VITALS (7 sets, daily range): BP systolic 131–160; BP diastolic 41–113; PULSE 83–90; RESP 16–20; TEMP 97.4–98.2; O2SAT 91–98
--- NOTE | 2024-07-02 00:23 | DVHINCON2 ---
Date of service: Jul 01, 2024 Referring Physician Felecia Reason for Consultation Aflutter with RVR History of Present Illness This is a 74-year-old female with a PMH of High Lipids, HTN, Thyroid who presented to the ED via EMS for a complaint of generalized weakness. Patient was just recently discharged from here June 04, wherein she was admitted for 25 days, with a discharge diagnosis of diverticulitis/abscess status post CT guided placement of 8.5 [place]bourgish pigtail drain into a midline lower intra-abdominal abscess performed on 05/15/2024. For the past 2 days, was noted by family members that patient is generally weak with body malaise. Blood sugar on scene was 133, with a blood pressure of 102/71 mm Hg on scene. HGB 9.4, HCT 30.4, CL 112, CO2 17, BUN 36, ULTRASONIC HAND SOLDERER 1.91. Troponin is negative 2. Chest x-ray shows NAD. CT ABD PEL is unremarkable. Patient was admitted to the hospital, I am asked to consult on this patient. Family History: Hypertension G8 MOTHER, , Age: 99 Allergies: Coded Allergies: NO KNOWN ALLERGIES (Unverified , 05/09/24) Home Meds Active Scripts Fluconazole (Fluconazole) 100 Mg Tab, 400 MG PO DAILY for 14 Days, #56 TAB Prov:QUINCY HURST MD 06/05/24 Cefpodoxime Proxetil (Cefpodoxime Proxetil) 200 Mg Tab, 1 TAB PO BID, #14 TAB Prov:QUINCY HURST MD 06/05/24 Linezolid (Zyvox) 600 Mg Tab, 600 MG PO BID for 14 Days, #28 TAB Prov:QUINCY HURST MD 06/04/24 Cefpodoxime Proxetil (Cefpodoxime Proxetil) 200 Mg Tab, 200 MG PO BID for 14 Days, #28 TAB Prov:QUINCY HURST MD 06/04/24 Fluconazole (Fluconazole) 100 Mg Tab, 400 MG PO DAILY for 14 Days, #56 TAB Prov:QUINCY HURST MD 06/04/24 Reported Medications Atorvastatin Calcium (ATORVASTATIN CALCIUM) 40 Mg Tab, 1 TAB PO DAILY 07/01/24 Ascorbic Acid (VITAMIN C TABLET) 500 Mg Tb, PO, TAB 05/10/24 Vitamin A (Synthetic) (Vitamin A) 1 Pow Pow, 1 XX, POW 05/10/24 Cholecalciferol (VITAMIN D3) 2,000 Unit Tab, PO, TAB 05/10/24 [place]-3 Fatty Acids ([place]-3) 1,400 Mg Cap, PO, CAP 05/10/24 Levothyroxine Sodium (Levothyroxine Sodium) 125 Mcg Tab, 125 MCG PO QAM for 30 Days, MCG 05/10/24 Lisinopril (Lisinopril) 40 Mg Tab, 40 MG PO DAILY for 30 Days, MG 05/10/24 Atenolol (Atenolol) 25 Mg Tab, 25 MG PO BID for 30 Days, MG 05/10/24 Current Medications Current Medications Medications (Trade) Dose Ordered Sig/Lanette Route PRN Reason Start Time Stop Time Status Last Admin Acetaminophen/ Hydrocodone Bitart ([place] 5/325MG Tab) 1 tab Q4HP PRN PO MODERATE PAIN (4-6 PAIN SCALE) 07/01/24 10:30 Ondansetron HCl (Zofran) 4 mg Q4HP PRN IV NAUSEA / VOMITING 07/01/24 10:30 Enoxaparin Sodium (Lovenox) 40 mg DAILY SC 07/02/24 10:00 Acetaminophen (Tylenol Tablet) 650 mg Q6HP PRN PO PAIN SCALE 1-3 OR TEMP>100.4 07/01/24 10:30 Morphine Sulfate 2 mg Q4HPRN PRN IV SEVERE PAIN (7-10 PAIN SCALE) 07/01/24 10:30 Atenolol (Tenormin Tablet) 25 mg BID PO 07/01/24 22:00 07/01/24 21:00 Levothyroxine Sodium (Synthroid Tablet) 100 mcg QAM PO 07/02/24 07:00 Lisinopril (Zestril Tablet) 40 mg DAILY PO 07/02/24 10:00 Cefepime HCl 50 ml @ 12.5 mls/hr Q8HR IV 07/01/24 14:00 Metronidazole 100 ml @ 100 mls/hr Q8HR IV 07/01/24 14:00 07/01/24 21:02 Fluconazole (Diflucan Tablet) 100 mg DAILY PO 07/02/24 10:00 Levothyroxine Sodium (Synthroid Tablet) 25 mcg DAILY PO 07/02/24 10:00 Vancomycin HCl 0 ml @ 0 mls/hr UD IV 07/01/24 15:45 Review of Systems Constitutional: reports: malaise, weakness; denies: chills, diaphoresis, fatigue, fever, sweats, others EENTM: denies: blurred vision, double vision, ear bleeding, ear discharge, ear drainage, ear pain, ear ringing, eye pain, eye redness, hearing loss, mouth pain, mouth swelling, nasal discharge, nose bleeding, nose congestion, nose pain, photophobia, tearing, throat pain, throat swelling, voice changes, others Respiratory: denies: cough, hemoptysis, orthopnea, SOB at rest, shortness of breath, SOB with excertion, stridor, wheezing, others Cardiovascular: denies: chest pain, dizzy spells, diaphoresis, Dyspnea on exertion, edema, irregular heart beat, left arm pain, lightheadedness, pal pitations, PND, syncope, others Gastrointestinal: denies: abdomen distended, abdominal pain, blood streaked bowels, constipated, diarrhea, dysphagia, difficulty swallowing, hematemesis, melena, nausea, poor appetite, poor fluid intake, rectal bleeding, rectal pain, vomiting, others Genitourinary: denies: abnormal vagina bleeding, burning, dyspareunia, dysuria, flank pain, frequency, hematuria, incontinence, pain, , vagina discharge, urgency, others Neurological: denies: dizziness, fainting, headache, left sided numbness, left sided weakness, numbness, paresthesia, pre-existing deficit, right sided numbness, right sided weakness, seizure, speech problems, tingling, tremors, weakness, others Musculoskeletal: denies: back pain, gout, joint pain, joint swelling, muscle pain, muscle stiffness, neck pain, others Integumetry: denies: bruises, change in color, change in hair/nails, dryness, laceration, lesions, lumps, rash, wounds, others Allergic/Immunocompromised: denies: Difficulty Healing, Frequent Infections, Hives, Itching, others Hematologic/Lymphatic: denies: anemia, blood clots, easy bleeding, easy b ruising, swollen glands, others Endocrine: denies: excessive hunger, excessive sweating, excessive thirst, excessive urination, flushing, intolerance to cold, intolerance to heat, unexplained weight gain, unexplained weight loss, others Psychiatric: denies: anxiety, bipolar disorder, depression, hopeless, panic disorder, schizophrenia, sleepless, suicidal, others Vital Signs Vital Signs Date Time Temp Pulse Resp B/P (MAP) Pulse Ox O2 Delivery O2 Flow Rate FiO2 07/01/24 21:00 98.1 90 16 158/48 (84) 97 98.1 07/01/24 17:32 Room Air* 0 21 Physical Exam GENERAL: Awake, alert, oriented. LUNGS: Clear. CARDIOVASCULAR: Heart sounds are good. ABDOMEN: Soft. EB drain incision healing well. No drainage, erythema EXT: BLE edema. NEURO: Weakness in all extremities 3 of 5. Labs/Diagnostic Data Labs Test 07/01/24 19:38 07/01/24 05:28 07/01/24 02:08 07/01/24 00:48 Range/Units Urine Color Light-yellow Yellow Urine Clarity Turbid H Clear Urine pH 6.0 5.0-9.0 Urine Specific [place] 1.015 1.001-1.035 Urine Protein 1+ H Negative Urine Ketones Negative Negative Urine Blood Negative Negative /uL Urine Nitrite 1+ H Negative Urine Bilirubin Negative Negative Urine Urobilinogen Normal Negative mg/dL Urine Leukocyte Esterase 3+ Negative /uL Urine RBC 2 0 - 4 /hpf Urine WBC 282 0 - 5 /hpf Urine Squamous Epithelial Cells Few <5 /hpf Urine Transitional Epithelial Cells Few <2 /hpf Urine Renal Epithelial Cells Few None Seen /hpf Urine Bacteria Many H None Seen /hpf Urine Hyaline Casts Many 0 - 2 /lpf Urine Sperm Present None Seen /hpf Urine Glucose Normal Normal mg/dL Troponin I High Sensitivity 6 </=34 ng/L White Blood Count 7.7 4.4-10.8 10^3/uL Red Blood Count 3.14 L 4.0-5.20 10^6/uL Hemoglobin 9.4 L 12.2-16.2 g/dL Hematocrit 30.4 L 36.0-46.0 % Mean Corpuscular Volume 96.7 80.0-100.0 fL Mean Corpuscular Hemoglobin 29.9 28.0-32.0 pg Mean Corpuscular Hemoglobin Concent 30.9 L 32.0-36.0 g/dL Red Cell Distribution Width 19.0 H 11.8-14.3 % Platelet Count 265 140-450 10^3/uL Mean Platelet Volume 8.5 6.9-10.8 fL Neutrophils (%) (Auto) 50.9 37.0-80.0 % Lymphocytes (%) (Auto) 31.6 10.0-50.0 % Monocytes (%) (Auto) 10.1 0.0-12.0 % Eosinophils (%) (Auto) 6.9 0.0-7.0 % Basophils (%) (Auto) 0.5 0.0-2.0 % Neutrophils # (Auto) 3.9 1.6-8.6 10 ^3/uL Lymphocytes # (Auto) 2.4 0.4-5.4 10 ^3/uL Monocytes # (Auto) 0.8 0-1.3 10 ^3/uL Eosinophils # (Auto) 0.5 0-0.8 10 ^3/uL Basophils # (Auto) 0 0-0.2 10 ^3/uL Nucleated Red Blood Cells 0.1 % Prothrombin Time 11.5 9.3-11.8 sec Prothrombin Time INR 1.09 0.9-1.15 Activated Partial Thromboplast Time 27.5 24.5-34.5 SEC Sodium Level 140 136-145 mmol/L Potassium Level 4.3 3.5-5.1 mmol/L Chloride Level 112 H 98-107 mmol/L Carbon Dioxide Level 17 L 20-31 mmol/L Anion Gap 11 5-15 Blood Urea Nitrogen 36 H 9-23 mg/dL Creatinine 1.91 H 0.550-1.02 mg/dL Glomerular Filtration Rate Calc 27 >90 mL/min BUN/Creatinine Ratio 18.8 10.0-20.0 Serum Glucose 109 H 74-106 mg/dL Lactic Acid Level 1.3 0.4-2.0 mmol/L Calcium Level 9.1 8.7-10.4 mg/dL Magnesium Level 2.4 1.6-2.6 mg/dL Total Bilirubin < 0.2 L 0.2-1.0 mg/dL Aspartate Amino Transferase (AST) 29 13-40 U/L Alanine Aminotransferase (ALT) 22 7-40 U/L Alkaline Phosphatase 108 46-116 U/L Total Protein 6.0 5.7-8.2 g/dL Albumin 3.4 3.2-4.8 g/dL Assessment Acute complicated cystitis. Acute abdominal pain. Recent diverticulitis status post abscess drainage. Anemia. Intractable diarrhea. GÓMEZ due to VMN. Acidosis NAGMA. Atrial flutter. Plan/Recommendation I agree with your ongoing assessment and care of plan. Morphine and [place] for pain management. Atenolol, Lisinopril. IV antibiotics as ordered. DVT prophylactics. Synthroid. Additional plan as per the hospital course. A total of 45 minutes was spent reviewing the patient record, examining the patient, making a diagnostic and therapeutic plan, discussing this plan with medical personnel, following up on diagnostic studies and following the patient for clinical stability excluding any and all procedures. At least 50% of this time was spent in direct, [id number] contact. Plan discussed with: Patient TRESA MCFARLANE MD Jul 01, 2024 22:52
[2024-07-02] MEDS: LEVOTHYROXINE SODIUM 100 MCG TAB PO SCH (05:46)
[2024-07-02 07:37] LABS: Basophils # (auto) 0.1 10 ^3/uL (0-0.2); Eosinophils # (auto) 0.5 10 ^3/uL (0-0.8); Hematocrit 27.9 % (36.0-46.0); Hemoglobin 9.1 g/dL (12.2-16.2); Lymphocytes # (auto) 1.9 10 ^3/uL (0.4-5.4); Lymphocytes % (auto) 22.9 % (10.0-50.0); Mean Corpuscular Hemoglobin 29.9 pg (28.0-32.0); Mean Corpuscular Hgb Conc. 32.5 g/dL (32.0-36.0); Mean Corpuscular Volume 92.2 fL (80.0-100.0); Monocytes # (auto) 0.7 10 ^3/uL (0-1.3); Monocytes % (auto) 8.3 % (0.0-12.0); Neutrophils # (auto) 5.1 10 ^3/uL (1.6-8.6); Neutrophils % (auto) 61.8 % (37.0-80.0); Nucleated Red Blood Cells % 0.2 %; Platelet Count (auto) 374 10^3/uL (140-450); Red Blood Cells 3.03 10^6/uL (4.0-5.20); Red Cell Distribution Width 17.7 % (11.8-14.3); White Blood Cell 8.2 10^3/uL (4.4-10.8)
[2024-07-02 07:40] LABS: Alanine Aminotransferase 24 U/L (7-40); Albumin 3.4 g/dL (3.2-4.8); Alkaline Phosphatase 109 U/L (46-116); Anion Gap 12 (5-15); Aspartate Aminotransferase 37 U/L (13-40); BUN/Creatinine Ratio 18.5 (10.0-20.0); Blood Urea Nitrogen 22 mg/dL (9-23); Glucose 84 mg/dL (74-106); Potassium 3.9 mmol/L (3.5-5.1); Sodium 143 mmol/L (136-145); Total Protein 6.2 g/dL (5.7-8.2)
[2024-07-02 07:43] LABS: Bilirubin, Total 0.2 mg/dL (0.2-1.0); Carbon Dioxide 17 mmol/L (20-31); Chloride 114 mmol/L (98-107)
[2024-07-02 09:13] LABS: Hepatitis B Surface Antigen Negative (Negative); Hepatitis C Antibody Negative (Negative)
[2024-07-02] MEDS: LEVOTHYROXINE SODIUM 25 MCG TAB PO SCH (09:57)
[2024-07-02] MEDS: LISINOPRIL 20 MG TAB PO SCH (09:58)
[2024-07-02] MEDS: FLUCONAZOLE 100 MG TAB PO SCH (09:58)
[2024-07-02] MEDS: ENOXAPARIN SOD 40 MG/0.4 ML SYRINGE SC SCH (09:59)
[2024-07-02] MEDS: VANCOMYCIN 1.5GM/300ML 300 ML IV ONE (16:54)
[2024-07-02] MEDS: CEFEPIME 1GM/ 50ML 50 ML IV SCH (18:57)
--- NOTE | 2024-07-02 22:33 | DVHPN2 ---
Progress Note - Dictate Date Seen: Jul 02, 2024 Medical Necessity Reason Pt with a Central, PICC or Fol: No Subjective Patient was seen and evaluated in follow up. Patient is complaining of of generalized weakness. HGB 9.1, HCT 27.9, CO2 17, Business Information Manager 1.19. vital signs Vital Sign Date Time Temp Pulse Resp B/P (MAP) Pulse Ox O2 Delivery O2 Flow Rate FiO2 07/02/24 21:58 83 138/52 07/02/24 16:58 97.9 18 92 97.9 07/02/24 08:05 Room Air* 0 21 Total Intake and Output 07/01/24 07/01/24 07/02/24 15:00 23:00 07:00 Intake Total 100 ml 300 ml Balance 100 ml 300 ml medications Current Medications Medications Dose Ordered Sig/Lanette Route Start Time Stop Time Status Last Admin Dose Admin Acetaminophen/ Hydrocodone Bitart 1 tab Q4HP PRN PO 07/01/24 10:30 Ondansetron HCl 4 mg Q4HP PRN IV 07/01/24 10:30 Enoxaparin Sodium 40 mg DAILY SC 07/02/24 10:00 07/02/24 09:59 40 MG Acetaminophen 650 mg Q6HP PRN PO 07/01/24 10:30 Morphine Sulfate 2 mg Q4HPRN PRN IV 07/01/24 10:30 Atenolol 25 mg BID PO 07/01/24 22:00 07/02/24 21:58 25 MG Levothyroxine Sodium 100 mcg QAM PO 07/02/24 07:00 07/02/24 05:46 100 MCG Lisinopril 40 mg DAILY PO 07/02/24 10:00 07/02/24 09:58 40 MG Metronidazole 100 ml @ 100 mls/hr Q8HR IV 07/01/24 14:00 07/02/24 21:58 100 MLS/HR Fluconazole 100 mg DAILY PO 07/02/24 10:00 07/02/24 09:58 100 MG Levothyroxine Sodium 25 mcg DAILY PO 07/02/24 10:00 07/02/24 09:57 25 MCG Vancomycin HCl 0 ml @ 0 mls/hr UD IV 07/01/24 15:45 Labetalol HCl 10 mg Q2HPRN PRN IV 07/02/24 12:15 Cefepime HCl 50 ml @ 12.5 mls/hr Q12H IV 07/02/24 18:00 07/02/24 18:57 12.5 MLS/HR objective GENERAL: Awake, alert, oriented. LUNGS: Clear. CARDIOVASCULAR: Heart sounds are good. ABDOMEN: Soft. EB drain incision healing well. No drainage, erythema EXT: BLE edema. NEURO: Weakness in all extremities 3 of 5. laboratory and microbiology Laboratory Tests 07/02/24 06:30 Test 07/02/24 06:30 Range/Units Serum Glucose 84 74-106 mg/dL Problem List Acute complicated cystitis. Acute abdominal pain. Recent diverticulitis status post abscess drainage. Anemia. Intractable diarrhea. GÓMEZ due to VMN. Acidosis NAGMA. Atrial flutter. Assessment/Plan Continued all current supportive medical care. Morphine and [place] for pain management. Atenolol, Lisinopril. IV antibiotics with Cefepime. DVT prophylactics. Synthroid. Additional plan as per the hospital course. Plan discussed with: Patient TRESA MCFARLANE MD Jul 02, 2024 22:33
[2024-07-03] MEDS: ONDANSETRON HCL 4 MG/2 ML VIAL IV PRN (01:11)
[2024-07-03 05:00] VITALS: BP 156/55; PULSE 88; RESP 20; TEMP 98.2; O2SAT 93
[2024-07-03 08:36] VITALS: BP 159/54; PULSE 84; RESP 16; TEMP 97.9; O2SAT 96
--- NOTE | 2024-07-03 11:13 | ECG ---
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
[2024-07-03] MEDS: CEFEPIME 1GM/ 50ML 50 ML IV SCH (16:46)
[2024-07-03] MEDS: LABETALOL HCL 20 MG/4 ML VL IV PRN (16:46)
[2024-07-03 16:49] VITALS: BP 183/64; PULSE 87; RESP 16; TEMP 99.3; O2SAT 95
[2024-07-03] MEDS: VANCOMYCIN 1.25GM/250ML 250 ML IV SCH (20:20)
[2024-07-03 21:00] VITALS: BP 123/54; PULSE 85; RESP 17; TEMP 98.6; O2SAT 94
[2024-07-03] MEDS: PROCHLORPERAZINE EDISYLATE 5 MG/ML 2ML VIAL IV PRN (22:39)
--- NOTE | 2024-07-03 23:49 | DVHPN2 ---
Progress Note - Dictate Date Seen: Jul 03, 2024 Medical Necessity Reason Pt with a Central, PICC or Fol: No Subjective Patient was seen and evaluated in follow up. No overnight events. Patient denies any pain or discomfort. Stool for WBC is negative. MRSA is negative. Prelim blood cultures show no growth. vital signs Vital Sign Date Time Temp Pulse Resp B/P (MAP) Pulse Ox O2 Delivery O2 Flow Rate FiO2 07/03/24 21:35 85 123/54 07/03/24 21:00 98.6 17 94 98.6 07/03/24 20:00 Room Air* 0 21 Total Intake and Output 07/02/24 07/02/24 07/03/24 15:00 23:00 07:00 Intake Total 137.5 ml 1310 ml 1100 ml Output Total 1050 ml Balance 137.5 ml 1310 ml 50 ml medications Current Medications Medications Dose Ordered Sig/Lanette Route Start Time Stop Time Status Last Admin Dose Admin Acetaminophen/ Hydrocodone Bitart 1 tab Q4HP PRN PO 07/01/24 10:30 Ondansetron HCl 4 mg Q4HP PRN IV 07/01/24 10:30 07/03/24 16:46 4 MG Enoxaparin Sodium 40 mg DAILY SC 07/02/24 10:00 07/03/24 10:51 40 MG Acetaminophen 650 mg Q6HP PRN PO 07/01/24 10:30 Morphine Sulfate 2 mg Q4HPRN PRN IV 07/01/24 10:30 Atenolol 25 mg BID PO 07/01/24 22:00 07/03/24 21:35 25 MG Levothyroxine Sodium 100 mcg QAM PO 07/02/24 07:00 07/03/24 06:15 100 MCG Lisinopril 40 mg DAILY PO 07/02/24 10:00 07/03/24 10:53 40 MG Metronidazole 100 ml @ 100 mls/hr Q8HR IV 07/01/24 14:00 07/03/24 22:39 100 MLS/HR Fluconazole 100 mg DAILY PO 07/02/24 10:00 07/03/24 10:52 100 MG Levothyroxine Sodium 25 mcg DAILY PO 07/02/24 10:00 07/03/24 10:52 25 MCG Vancomycin HCl 0 ml @ 0 mls/hr UD IV 07/01/24 15:45 Labetalol HCl 10 mg Q2HPRN PRN IV 07/02/24 12:15 07/03/24 16:46 10 MG Prochlorperazine Edisylate 5 mg Q4HPRN PRN IV 07/03/24 22:15 07/03/24 22:39 5 MG Cefepime HCl 50 ml @ 12.5 mls/hr Q8H IV 07/04/24 01:00 Vancomycin HCl 250 ml @ 200 mls/hr Q12H IV 07/04/24 08:00 objective GENERAL: Awake, alert, oriented. LUNGS: Clear. CARDIOVASCULAR: Heart sounds are good. ABDOMEN: Soft. EB drain incision healing well. No drainage, erythema EXT: BLE edema. NEURO: Weakness in all extremities 3 of 5. laboratory and microbiology Laboratory Tests 07/03/24 05:45 07/02/24 06:30 Test 07/02/24 06:30 Range/Units Serum Glucose 84 74-106 mg/dL Problem List Acute complicated cystitis. Acute abdominal pain. Recent diverticulitis status post abscess drainage. Anemia. Intractable diarrhea. GÓMEZ due to VMN. Acidosis NAGMA. Atrial flutter. Assessment/Plan Continued all current supportive medical care. Morphine and [place] for pain management. Atenolol, Lisinopril. IV antibiotics with Cefepime. DVT prophylactics. Synthroid. Additional plan as per the hospital course. Plan discussed with: Patient TRESA MCFARLANE MD Jul 03, 2024 23:48
[2024-07-04] MEDS: CEFEPIME 1GM/ 50ML 50 ML IV SCH (00:41)
[2024-07-04] MEDS: HYDROcodone-ACET 5/325MG TAB PO PRN (00:50)
[2024-07-04 01:00] VITALS: BP 161/56; PULSE 81; RESP 16; TEMP 98.1; O2SAT 95
[2024-07-04 05:00] VITALS: BP 124/55; PULSE 90; RESP 18; TEMP 98; O2SAT 95
[2024-07-04 05:21] LABS: Basophils # (auto) 0 10 ^3/uL (0-0.2); Eosinophils # (auto) 0.4 10 ^3/uL (0-0.8); Monocytes # (auto) 0.8 10 ^3/uL (0-1.3); Neutrophils # (auto) 3.4 10 ^3/uL (1.6-8.6)
[2024-07-04 05:23] LABS: Basophils % (auto) 0.3 % (0.0-2.0); Eosinophils % (auto) 5.1 % (0.0-7.0); Hematocrit 30.3 % (36.0-46.0); Hemoglobin 10.2 g/dL (12.2-16.2); Lymphocytes # (auto) 3.1 10 ^3/uL (0.4-5.4); Lymphocytes % (auto) 39.7 % (10.0-50.0); Mean Corpuscular Hemoglobin 30.8 pg (28.0-32.0); Mean Corpuscular Hgb Conc. 33.5 g/dL (32.0-36.0); Mean Corpuscular Volume 91.8 fL (80.0-100.0); Monocytes % (auto) 10.5 % (0.0-12.0); Neutrophils % (auto) 44.4 % (37.0-80.0); Nucleated Red Blood Cells % 0.8 %; Platelet Count (auto) 553 10^3/uL (140-450); Red Cell Distribution Width 19.1 % (11.8-14.3); White Blood Cell 7.7 10^3/uL (4.4-10.8)
[2024-07-04] MEDS: VANCOMYCIN 1.25GM/250ML 250 ML IV SCH (08:29)
[2024-07-04 09:00] VITALS: BP 153/63; PULSE 75; RESP 17; TEMP 98.2; O2SAT 96
[2024-07-04 12:43] VITALS: BP 164/54; PULSE 74; RESP 16; TEMP 98.2; O2SAT 98
--- NOTE | 2024-07-04 13:43 | DVHPN2 ---
Progress Note - Dictate Date Seen: Jul 04, 2024 Medical Necessity Reason Pt with a Central, PICC or Fol: No Subjective Patient was seen and evaluated in follow up. Patient is complaining of nausea. Per family, the patient is having difficulty completing sentences and repeating herself. vital signs Vital Sign Date Time Temp Pulse Resp B/P (MAP) Pulse Ox O2 Delivery O2 Flow Rate FiO2 07/04/24 12:48 86 167/55 07/04/24 12:43 98.2 16 98 98.2 07/03/24 20:00 Room Air* 0 21 Total Intake and Output 07/03/24 07/03/24 07/04/24 15:00 23:00 07:00 Intake Total 50 ml 1000 ml 470 ml Balance 50 ml 1000 ml 470 ml medications Current Medications Medications Dose Ordered Sig/Lanette Route Start Time Stop Time Status Last Admin Dose Admin Acetaminophen/ Hydrocodone Bitart 1 tab Q4HP PRN PO 07/01/24 10:30 07/04/24 00:50 1 TAB Ondansetron HCl 4 mg Q4HP PRN IV 07/01/24 10:30 07/03/24 16:46 4 MG Enoxaparin Sodium 40 mg DAILY SC 07/02/24 10:00 07/04/24 09:56 40 MG Acetaminophen 650 mg Q6HP PRN PO 07/01/24 10:30 Morphine Sulfate 2 mg Q4HPRN PRN IV 07/01/24 10:30 Atenolol 25 mg BID PO 07/01/24 22:00 07/04/24 09:57 25 MG Levothyroxine Sodium 100 mcg QAM PO 07/02/24 07:00 07/04/24 06:18 100 MCG Lisinopril 40 mg DAILY PO 07/02/24 10:00 07/04/24 09:57 40 MG Metronidazole 100 ml @ 100 mls/hr Q8HR IV 07/01/24 14:00 07/04/24 05:42 100 MLS/HR Fluconazole 100 mg DAILY PO 07/02/24 10:00 07/04/24 09:57 100 MG Levothyroxine Sodium 25 mcg DAILY PO 07/02/24 10:00 07/04/24 09:57 25 MCG Vancomycin HCl 0 ml @ 0 mls/hr UD IV 07/01/24 15:45 Labetalol HCl 10 mg Q2HPRN PRN IV 07/02/24 12:15 07/04/24 12:48 10 MG Prochlorperazine Edisylate 5 mg Q4HPRN PRN IV 07/03/24 22:15 07/04/24 12:48 5 MG Cefepime HCl 50 ml @ 12.5 mls/hr Q8H IV 07/04/24 01:00 07/04/24 10:07 12.5 MLS/HR Vancomycin HCl 250 ml @ 200 mls/hr Q12H IV 07/04/24 08:00 07/04/24 08:29 200 MLS/HR objective GENERAL: Awake, alert, oriented. LUNGS: Clear. CARDIOVASCULAR: Heart sounds are good. ABDOMEN: Soft. EB drain incision healing well. No drainage, erythema EXT: BLE edema. NEURO: Weakness in all extremities 3 of 5. laboratory and microbiology Laboratory Tests 07/04/24 04:57 07/02/24 06:30 Test 07/02/24 06:30 Range/Units Serum Glucose 84 74-106 mg/dL Problem List Acute complicated cystitis. Acute abdominal pain. Recent diverticulitis status post abscess drainage. Anemia. Intractable diarrhea. GÓMEZ due to VMN. Acidosis NAGMA. Atrial flutter. Assessment/Plan Continued all current supportive medical care. Morphine and [place] for pain management. Atenolol, Lisinopril. IV antibiotics with Cefepime. DVT prophylactics. Synthroid. Additional plan as per the hospital course. Plan discussed with: Patient TRESA MCFARLANE MD Jul 04, 2024 13:10
[2024-07-04] MEDS ORDERED: ONDANSETRON ODT 4 MG TAB PO PRN (15:00)
[2024-07-04 16:15] VITALS: BP 148/61; PULSE 81; TEMP 36.8
[2024-07-04 16:38] VITALS: BP 157/67; PULSE 78; RESP 16; TEMP 98.3; O2SAT 99
== END 2024-07-04 15:15 | disposition home or self-care (01) | DRG 689 ==
LOC: EDUNIT# 23:58 → EDBD 23:58 → ER 07-01 → OVERFLOW 07-01 10:22 → WEST WING 07-01 17:25
PROVIDERS: ADMIT Student in an Organized Health Care Education/Training Program; ATTEND Specialist
PROC: 05HD33Z Insertion of Infusion Device into Right Cephalic Vein, Percutaneous Approach (ICD-10-PCS; principal; 2024-07-02)
PROC: B54MZZA Ultrasonography of Right Upper Extremity Veins, Guidance (ICD-10-PCS; 2024-07-02)
DX: N30.00 Acute cystitis without hematuria (principal); N17.0 Acute kidney failure with tubular necrosis; E87.20 Acidosis, unspecified; I48.92 Unspecified atrial flutter; D64.9 Anemia, unspecified; I10 Essential (primary) hypertension; E86.0 Dehydration; E03.9 Hypothyroidism, unspecified; E78.5 Hyperlipidemia, unspecified; Z82.49 Family history of ischemic heart disease and other diseases of the circulatory system
CPT/HCPCS: 36415; 71045; 74176; 80053; 80202; 81001; 82565; 83605; 83735; 84484; 85025; 85048; 85610; 85730; 86803; 87040; 87045; 87081; 87340; 87427; 87493; 93005; 96360; 97110; 97116; 97163; 97530; 99291; G0378; J2405; J3490

== ENCOUNTER 2025-04-28 21:26 | Inpatient (IN) | payer OTHER ==
[~2025-04-28] VITALS: Ht 165.1 cm; Wt 118.6 kg
[~2025-04-28 21:26] MED LIST changes: +ATOR40TA52 PO
[2025-04-28 23:10] LABS: Hemoglobin 10.9 g/dL (12.2-16.2)
[2025-04-28 23:11] LABS: Hematocrit 32.2 % (36.0-46.0); Mean Corpuscular Hemoglobin 30.0 pg (28.0-32.0); Mean Corpuscular Volume 88.3 fL (80.0-100.0)
[2025-04-28 23:38] LABS: Lactic Acid w/Reflex 2.3 mmol/L (0.4-2.0)
[2025-04-29 00:01] LABS: Total Cells Counted 100.0 (100)
[2025-04-29 00:02] LABS: Anisocytosis Slight
--- NOTE | 2025-04-29 00:47 | ED.PDOC ---
HPI (NEURO) HPI Comments 74-year-old female with a history of prior atrial fibrillation and div erticulitis now complains of generalized weakness for last 3 days. Patient was brought in by EMS and they noted that the patient's skin looked yellow. Chief Complaint: General Weakness Time Seen by MD: 21:40 Primary Care Provider: JUAN JOSÉ Information Source: Patient, Emergency Med Personnel Mode of Arrival: EMS Severity: Severe Dizziness/Weakness Severity: Unable to do activities Headache Severity: Severe Past Medical History PAST MEDICAL HISTORY: AFIB, High Lipids, HTN, Thyroid Surgical History: PUBLIC POLICY ASSOCIATE History: Denies all PUBLIC POLICY ASSOCIATE Hx Family History Family History: Reviewed,noncontributory to illness Social History Smoker: Non-Smoker Alcohol: Denies ETOH Use Drugs: Denies Drug Use Lives In: Home Constitutional: reports: fatigue, malaise Integumetry: reports: change in color Unable to Obtain due to: Altered Mental Status All Other Systems: Reviewed and Negative Physical Exam General Appearance: Moderate Distress, Obese HEENT: Other (Scleral icterus bilaterally) Neck: Full Range of Motion, Non-Tender, Normal, Normal Inspection Respiratory: Chest Non-Tender, Lungs Clear, No Accessory Muscle Use, No Respiratory Distress, Normal Breath Sounds Cardiovascular: No Edema, No JVD, No Murmur, No Gallop, Normal Peripheral Pulses, Regular Rate/Rhythm Breast Exam: Deferred Gastrointestinal: Non Tender, Soft Genitalia: Deferred Pelvic: Deferred Rectal: Deferred Extremities: No calf tenderness, Normal capillary refill, Normal inspection, Normal range of motion, Non-tender, No pedal edema Musculoskeletal : Apperance: Normal Neurologic: Alert, machine fastener II-XII nml as Tested, No Motor Deficits, Normal Affect, Normal Mood, No Sensory Deficits Cerebellar Function: Normal Reflexes: Normal Skin: Jaundice Lymphatic: No Adenopathy Was a procedure done? Was a procedure done?: No Differential Diagnosis (SZ) Seizure: Psychogenic Seizure, Alcohol Withdrawl, Anticonvulsant Withdrawl, Drug Ingestion, Hypocalcemia, Hypoglycemia, Hyponatremia, Syncope, Encephalopathy, Other X-Ray, Labs, Meds, VS Vital Signs Date Time Temp Pulse Resp B/P (MAP) Pulse Ox O2 Delivery O2 Flow Rate FiO2 04/28/25 23:00 98.7 96 20 139/60 (86) 94 98.7 Lab Test 04/29/25 00:10 04/28/25 22:44 Range/Units Sodium Level Pending Potassium Level Pending Chloride Level Pending Carbon Dioxide Level Pending Anion Gap Pending Blood Urea Nitrogen Pending Creatinine Pending Glomerular Filtration Rate Calc Pending BUN/Creatinine Ratio Pending Serum Glucose Pending Lactic Acid Level Pending 2.3 *H 0.4-2.0 mmol/L Calcium Level Pending Magnesium Level Pending Total Bilirubin Pending Aspartate Amino Transferase (AST) Pending Alanine Aminotransferase (ALT) Pending Alkaline Phosphatase Pending Troponin I High Sensitivity Pending 5003 *H </=34 ng/L Total Protein Pending Albumin Pending Plasma/Serum Blood Alcohol Pending White Blood Count 14.0 H 4.4-10.8 10^3/uL Red Blood Count 3.64 L 4.0-5.20 10^6/uL Hemoglobin 10.9 L 12.2-16.2 g/dL Hematocrit 32.2 L 36.0-46.0 % Mean Corpuscular Volume 88.3 80.0-100.0 fL Mean Corpuscular Hemoglobin 30.0 28.0-32.0 pg Mean Corpuscular Hemoglobin Concent 34.0 32.0-36.0 g/dL Red Cell Distribution Width 21.3 H 11.8-14.3 % Platelet Count 531 H 140-450 10^3/uL Mean Platelet Volume 9.9 6.9-10.8 fL Neutrophils (%) (Auto) 37.0-80.0 % Lymphocytes (%) (Auto) 10.0-50.0 % Monocytes (%) (Auto) 0.0-12.0 % Basophils (%) (Auto) 0.0-2.0 % Neutrophils # (Auto) 1.6-8.6 10 ^3/uL Lymphocytes # (Auto) 0.4-5.4 10 ^3/uL Monocytes # (Auto) 0-1.3 10 ^3/uL Differential Total Cells Counted 100.0 100 Neutrophils % (Manual) 72 37.0-80.0 Band Neutrophils % (Manual) 0 Lymphocytes % (Manual) 17 10.0-50.0 Monocytes % (Manual) 9 0-12 Eosinophils % (Manual) 1 0-7 Basophils % (Manual) 0 0.0-2.0 Metamyelocytes % (manual) 0 Myelocytes % (Manual) 1 Promyelocytes % (Manual) 0 Blast Cells % (Manual) 0 Reactive Lymphocytes 0 Platelet Estimate Increased Anisocytosis (manual) Slight Ammonia 206 *H 11-32 umol/L Time of 1ST Reevaluation: 00:45 Reevaluation 1ST: Unchanged Patient Education/Counseling: Diagnosis, Treatment Family Education/Counseling: No Family Present Departure 1 Departure Time of Disposition: 00:45 Impression: Primary Impression: Hepatic encephalopathy Additional Impressions: Urinary tract infection Dehydration Disposition: 09 ADMITTED INPATIENT Admit to: Med Surg Condition: Guarded Comments 74-year-old female with generalized weakness. Patient noted to be jaundiced with scleral icterus. Ammonia level is high in the 200s. Troponin is elevated. I ordered a CT of the abdomen and pelvis to rule out obstructive mass. Patient was given IV fluids and aspirin. Patient will need to be admitted for supportive care and further workup. Critical Care Note Critical Care Time?: Yes (35 min-critical care time only) Critical care comment: Total critical care time: Approximately 36 minutes Due to a high probability of clinically significant, life threatening deterioration, the patient required my highest level of preparedness to intervene emergently and I personally spent this critical care time directly and personally managing the patient. This critical care time included obtaining a history; examining the patient; pulse oximetry; ordering and review of studies; arranging urgent treatment with development of a management plan; evaluation of patient's response to treatment; frequent reassessment; and, discussions with other providers. This critical care time was performed to assess and manage the high probability of imminent, life-threatening deterioration that could result in multi-organ failure. It was exclusive of separately billable procedures and treating other patients. Stability Stability form required: No Heart Score Heart Score: Heart Score Response (Comments) Value History Slightly Suspicious 0 EKG Normal 0 Age >65 2 Risk Factors 1 or 2 risk factors 1 Troponin >3 x's Normal limit 2 Total 5 RORY TURCIOS MD Apr 29, 2025 00:47
[2025-04-29 01:05] LABS: Anion Gap 12 (5-15); BUN/Creatinine Ratio 17.2 (10.0-20.0)
[2025-04-29 01:06] LABS: Alanine Aminotransferase 299 U/L (7-40); Albumin 2.7 g/dL (3.2-4.8); Alkaline Phosphatase 748 U/L (46-116); Bilirubin, Total 21.5 mg/dL (0.2-1.0); Blood Urea Nitrogen 27 mg/dL (9-23); Calcium 8.5 mg/dL (8.7-10.4); Carbon Dioxide 20 mmol/L (20-31); Chloride 94 mmol/L (98-107); Glucose 96 mg/dL (74-106); Magnesium 2.1 mg/dL (1.6-2.6); Potassium 4.0 mmol/L (3.5-5.1); Sodium 126 mmol/L (136-145); Total Protein 6.2 g/dL (5.7-8.2)
[2025-04-29] MEDS: SODIUM CHLORIDE 0.9% 1,000 ML IV ONE ×2 (01:10→10:37)
[2025-04-29] MEDS: IOHEXOL 300 MG/ML 100ML BOTTLE IJ ONE (02:03)
[2025-04-29] MEDS: ENOXAPARIN SOD 40 MG/0.4 ML SYRINGE SC SCH (03:30)
[2025-04-29] MEDS ORDERED: VANCOMYCIN PER PHARMACY 0 MG IV SCH (03:30)
[2025-04-29] MEDS: LACTULOSE 20Gm/30ML SOLN PO ONE (03:30)
--- NOTE | 2025-04-29 03:52 | DVH ---
Exam: CT CT AB PEL WO CON-NO ORAL OR IV History: severe jaundice Comparison Study: CT CT AB PEL WO CON-NO ORAL OR IV on DOS: 07/01/24, CT CT AB PEL WO CON-NO ORAL OR IV on DOS: 05/26/24, CT ABDOMEN WITHOUT CONTRAST on DOS: 05/24/24, CT CT ABD PELVIS W CON-ORAL IV o n DOS: 05/23/24, CT CT AB PEL WO CON-NO ORAL OR IV on DOS: 05/18/24 Technique: Multidetector spiral CT of the chest, abdomen and pelvis was performed from lower neck to pubic symphysis Axial, coronal and sagittal multiplanar reformats were performed by the technologist on a separate workstation. Radiation Dose : 1. Chest/Abdomen/Pelvis: CTDIvol 27.69 mGy, DLP 1729.78 mGy*cm. Findings: Lower neck: Normal thyroid. Lungs: Trace bilateral pleural effusions with adjacent atelectasis and patchy posterior bibasilar inf iltrate. No evidence of pneumothorax. Heart/Vascular Structures: Cardiomegaly. No pericardial effusion. Lymph Nodes: No adenopathy Pleura: No pleural effusion or significant pneumothorax. Liver: Diffusely cirrhotic hepatic morphology and enlargement, measuring up to 19.5 cm in craniocauda l dimension. Moderate intrahepatic biliary ductal dilatation. No definite focal mass lesions. Gallbladder and Biliary Tree: Cholelithiasis and moderate gallbladder distention. Spleen: Unremarkable Pancreas: The pancreas is normal in appearance without focal lesions or abnormal enhancement. Adrenal Glands: Unremarkable Kidneys: Kidneys demonstrate normal symmetric enhancement without focal lesions, calculi or hydroneph rosis. Bladder: Unremarkable Bowel: The stomach is grossly normal in appearance. Diverticulosis coli without CT evidence of acute diverticulitis. Small bowel and colon are otherwise normal in caliber and distribution. The appendix is normal. Ascites: Absent Lymphadenopathy: No mesenteric, retroperitoneal or periportal lymphadenopathy. Abdominal Wall and Mesentery: Unremarkable. Vasculature: The visualized abdominal aorta is normal in size and caliber. Atherosclerotic vascular c alcifications. Abdominal and pelvic vessels demonstrate normal enhancement. Pelvic Organs: Unremarkable Musculoskeletal: No aggressive focal bony lesions, acute fractures or dislocation. IMPRESSION: 1. Trace bilateral pleural effusions with adjacent atelectasis and patchy posterior bibasilar infiltr ate. 2. Cardiomegaly. 3. Hepatomegaly and cirrhosis. 4. Moderate intrahepatic biliary ductal dilatation. 5. Cholelithiasis and moderate gallbladder distention. 6. Diverticulosis coli without CT evidence of acute diverticulitis.
[2025-04-29] MEDS: ONDANSETRON HCL 4 MG/2 ML VIAL IV PRN (04:12)
[2025-04-29] MEDS: VANCOMYCIN 1GM/250ML IV SCH (05:00)
--- NOTE | 2025-04-29 05:04 | DVHHPRES ---
History of Present Illness Resident Creating Document: DONI ADEN RESIDENT History of Present Illness This is a 74-year-old female with a past medical history of hypertension, hyperlipidemia, hypothyroidism, diverticulitis status post abscess drainage, atrial flutter, acute complicated cystitis who came in with a chief complaint of generalized weakness for the past 3 weeks and pruritus all over the body. Patient reports that 3 weeks ago when she got out from bed she felt sudden weakness in her body and was unable to take another step and felt limp. She contacted a via tele services who suggested it could be COVID but she never did the COVID test. Patient has also noticed that she is becoming increasingly yellow and is slightly short of breath. She also complains that she had nausea, 1 episode of vomiting today morning as well as 6-7 episodes of watery diarrhea, not mixed with blood or mucus in the stool today morning. She reports that she felt more tired than usual, with low energy levels and was unable to move which prompted the visit to the emergency room. Patient's son was at the bedside who reported that on Tuesday, 2 days ago during video call patient seemed to have slurring of speech and sounded intoxicated. Patient denies any chest pain, slurring of speech, fever, weakness in 1 side of the body, drooling, recent travel, recent food from outside, cough. She does report that she has no appetite and can only tolerate some fruits. patient is septic on presentation with pulse of 98, WBC 14.0. Hemoglobin is 10.9, platelet 531. liver enzymes are elevated with AST 754, ALT 299, ALP 748, total bilirubin 21.5 and troponin I scores are high at 5003, 4922, 4758. CT abdomen and pelvis shows trace b ilateral pleural effusion with adjacent atelectasis and patchy posterior bibasilar infiltrates, cardiomegaly, hepatomegaly and cirrhosis, moderate intrahepatic biliary duct dilation, cholelithiasis and moderate gallbladder distention, diverticulosis with CT evidence of acute diverticulitis. We are admitting the patient for further workup and treatment. Past medical history: Hypertension, hyperlipidemia, hypothyroidism, diverticulosis with abscess, UTI Past surgical history: Diverticulitis status post abscess drainage Family history: Reviewed and noncontributory to the management of this case Social history: Patient denies ever smoking, drinking alcohol or using illicit drugs Home medications: Atorvastatin 40 mg, lisinopril 40 mg, atenolol 25 mg, amlo dipine 10 mg, levothyroxine 125 mcg Allergies: None Primary care physician: Dr. Wooten Code status: Full code Review of Systems Constitutional: No: Fever, Chills, Sweats, Weakness, Malaise, Other Eyes: No: Pain, Vision change, Conjunctivae inflammation, Eyelid inflammation, Other, Redness ENT: No: Ear pain, Ear discharge, Nose pain, Nose discharge, Nose congestion, Mouth pain, Mouth swelling, Throat pain, Throat swelling, Other Respiratory: No: Cough, Dry, Shortness of breath, SOB with excertion, Wheezing, Hemoptysis, Pleuritic Pain, Sputum, Wheezing, Other Cardiovascular: No: Chest Pain, Palpitations, Orthopnea, Paroxysmal Noc. Dyspne a, Edema, Lt Headedness, Other Gastrointestinal: No: Nausea, Vomiting, Abdominal Pain, Diarrhea, Constipation, Melena, Hematochezia, Other Genitourinary: No Dysuria, No Frequency, No Incontinence, No Hematuria, No Retention, No Other Musculoskeletal: No: other, neck pain, shoulder pain, arm pain, back pain, hand pain, leg pain, foot pain Skin: No: Rash, Lesions, Jaundice, Bruising, Other Neurological: Weakness; No: Numbness, Incoordination, Change in speech, Confusion, Seizures, Other Allergies: Coded Allergies: NO KNOWN ALLERGIES (Unverified , 05/09/24) Medications Current Medications Medications Dose Ordered Sig/Lanette Route Start Time Stop Time Status Last Admin Dose Admin Ondansetron HCl 4 mg Q4HP PRN IV 04/29/25 03:30 04/29/25 04:12 4 MG Enoxaparin Sodium 40 mg DAILY SC 04/29/25 03:30 Metronidazole 100 ml @ 100 mls/hr Q8HR IV 04/29/25 06:00 Vancomycin HCl 0 ml @ 0 mls/hr UD IV 04/29/25 03:30 UNV Cefepime HCl 50 ml @ 12.5 mls/hr Q12HR IV 04/29/25 10:00 UNV Cefepime HCl 50 ml @ 12.5 mls/hr Q8HR IV 04/29/25 06:00 Lactulose 30 ml BID PO 04/29/25 10:00 Furosemide 40 mg BIDD IV 04/29/25 06:00 Vancomycin HCl 250 ml @ 250 mls/hr Q1H IV 04/29/25 04:30 04/29/25 06:29 Exam Vital Signs Vital Signs Date Time Temp Pulse Resp B/P (MAP) Pulse Ox O2 Delivery O2 Flow Rate FiO2 04/29/25 02:17 98.7 95 19 133/52 (79) 96 98.7 04/29/25 00:56 Nasal Cannula* 2 28 Exam Pt is lying on bed General Appearance: Alert, Oriented X3, Cooperative, Not in acute distress HEENT: Atraumatic, Mucous membranes moist/pink, icterus noted all over the body, 2 L of oxygen via nasal cannula Respiratory: Clear to auscultation, Normal air movement, No added sounds Cardiovascular: Regular rate, Normal S1, Normal S2, No murmurs Abdominal: Active bowel sounds, Soft, no distention, no tenderness Extremities: No edema, Normal pulses, +2 pitting edema up to the knee, strength on right leg 0/5, left leg 3/5, 5/5 on bilateral upper extremity Skin: No Significant rash, except past surgical scars Neuro: Normal speech, sensorimotor deficits none Psych/Mental Status: Mental status NL, Mood NL Labs/Xrays Labs Test 04/29/25 04:05 04/29/25 03:50 04/29/25 03:48 04/29/25 03:04 Range/Units Troponin I High Sensitivity 4758 *H </=34 ng/L Test 04/29/25 00:10 04/28/25 22:44 Range/Units Sodium Level 126 L 136-145 mmol/L Potassium Level 4.0 3.5-5.1 mmol/L Chloride Level 94 L 98-107 mmol/L Carbon Dioxide Level 20 20-31 mmol/L Anion Gap 12 5-15 Blood Urea Nitrogen 27 H 9-23 mg/dL Creatinine 1.57 H 0.550-1.02 mg/dL Glomerular Filtration Rate Calc 34 >90 mL/min BUN/Creatinine Ratio 17.2 10.0-20.0 Serum Glucose 96 74-106 mg/dL Lactic Acid Level 2.0 0.4-2.0 mmol/L Calcium Level 8.5 L 8.7-10.4 mg/dL Magnesium Level 2.1 1.6-2.6 mg/dL Total Bilirubin 21.5 H 0.2-1.0 mg/dL Aspartate Amino Transferase (AST) 754 H 13-40 U/L Alanine Aminotransferase (ALT) 299 H 7-40 U/L Alkaline Phosphatase 748 H 46-116 U/L B-Type Natriuretic Peptide 556.92 0-100 pg/mL Total Protein 6.2 5.7-8.2 g/dL Albumin 2.7 L 3.2-4.8 g/dL Plasma/Serum Blood Alcohol < 3.0 <10 mg/dL White Blood Count 14.0 H 4.4-10.8 10^3/uL Red Blood Count 3.64 L 4.0-5.20 10^6/uL Hemoglobin 10.9 L 12.2-16.2 g/dL Hematocrit 32.2 L 36.0-46.0 % Mean Corpuscular Volume 88.3 80.0-100.0 fL Mean Corpuscular Hemoglobin 30.0 28.0-32.0 pg Mean Corpuscular Hemoglobin Concent 34.0 32.0-36.0 g/dL Red Cell Distribution Width 21.3 H 11.8-14.3 % Platelet Count 531 H 140-450 10^3/uL Mean Platelet Volume 9.9 6.9-10.8 fL Neutrophils (%) (Auto) 37.0-80.0 % Lymphocytes (%) (Auto) 10.0-50.0 % Monocytes (%) (Auto) 0.0-12.0 % Basophils (%) (Auto) 0.0-2.0 % Neutrophils # (Auto) 1.6-8.6 10 ^3/uL Lymphocytes # (Auto) 0.4-5.4 10 ^3/uL Monocytes # (Auto) 0-1.3 10 ^3/uL Differential Total Cells Counted 100.0 100 Neutrophils % (Manual) 72 37.0-80.0 Band Neutrophils % (Manual) 0 Lymphocytes % (Manual) 17 10.0-50.0 Monocytes % (Manual) 9 0-12 Eosinophils % (Manual) 1 0-7 Basophils % (Manual) 0 0.0-2.0 Metamyelocytes % (manual) 0 Myelocytes % (Manual) 1 Promyelocytes % (Manual) 0 Blast Cells % (Manual) 0 Reactive Lymphocytes 0 Platelet Estimate Increased Anisocytosis (manual) Slight SEPSIS Sepsis Screen Date sepsis recognized/suspect: Apr 29, 2025 Time Sepsis recognized/suspect: 0000 Recent Procedure: No On Antibiotic Therapy: No Respiratory Rate >20: No Heart Rate >90: No Temp<36 C (96.8 F) or >38.3 C: No SBP <90 or MAP <65 mmHG: No New Acute Mental Status Change: No Is the patient on CPAP, BIPAP,: No Physician Orders Blood Culture (04/28/25 21:47) Electrocardigram (04/28/25 21:47) Electrocardigram (04/29/25 01:49) Ct Ab Pel Wo Con-No Oral Or Iv (04/28/25 22:13) Admit (04/29/25 03:18) Code Status (04/29/25 03:18) Ondansetron Hcl (Zofran) (04/29/25 03:30) Complete Blood Count (04/30/25 04:00) Comprehensive Metabolic Panel (04/30/25 04:00) Enoxaparin Sodium (Lovenox) (04/29/25 03:30) Oxygen By Nasal Cannula (04/29/25 03:18) * Cardiology Consult (04/29/25 03:18) Stool Wbc (04/29/25 03:18) Stool Bacterial Culture (04/29/25 03:18) Creatine Kinase (04/29/25 03:18) Chest Xray 1 View (04/29/25 03:18) Covid19 Antigen Laya (04/29/25 ) Rapid Influenza A&B (04/29/25 03:18) Metronidazole 500mg/100ml (Flagyl 500mg/ (04/29/25 06:00) Urinalysis (04/29/25 03:18) Clostridium Difficile Toxin (04/29/25 03:18) Urine Bacterial Culture (04/29/25 03:18) Respiratory Culture W/ Gs (04/29/25 03:18) LIVER (04/29/25 03:18) Vancomycin Per Pharmacy (04/29/25 03:30) Cefepime 1gm/50ml (Maxipime 1gm/50ml) (04/29/25 06:00) Acute Hepatitis Panel (04/29/25 03:18) Hepatitis C Antibody (04/29/25 03:18) Ammonia (04/29/25 03:18) Clear Liq Diet (04/29/25 Breakfast) Lactulose Oral (04/29/25 10:00) Echo 2d Mode Cardiac Dop (04/29/25 03:18) Drug Screen (04/29/25 03:18) Mrcp Mri (04/29/25 03:18) Furosemide Injection (Lasix Injection) (04/29/25 06:00) Strict I & O QSHIFT (04/29/25 03:18) Maintain Fluid Restrictions QSHIFT (04/29/25 03:18) * Gi Dvh Furnace Puncher (04/29/25 03:18) Insert/Manage Urinary Catheter QSHIFT (04/29/25 04:19) Vancomycin 1gm/250ml Kit (04/29/25 04:30) Lipid Panel (04/29/25 04:25) PTPTT (04/29/25 04:25) Vitamin B12 (04/29/25 04:25) Folate (Folic Acid) (04/29/25 04:25) Ferritin (04/29/25 04:25) Iron Panel (04/29/25 04:25) Vital Signs Date Time Temp Pulse Resp B/P (MAP) Pulse Ox O2 Delivery O2 Flow Rate FiO2 04/29/25 02:17 98.7 95 19 133/52 (79) 96 98.7 04/29/25 02:14 95 04/29/25 01:03 99.5 93 22 127/52 (77) 96 99.5 04/29/25 00:56 Nasal Cannula* 2 28 04/28/25 23:00 98.7 96 20 139/60 (86) 94 98.7 04/28/25 21:26 98.6 98 18 126/72 98.6 Laboratory Tests Test 04/28/25 22:44 04/29/25 00:10 Lactic Acid Level 2.3 mmol/L (0.4-2.0) *H 2.0 mmol/L (0.4-2.0) White Blood Count 14.0 10^3/uL (4.4-10.8) H Medications Medications Dose Ordered Sig/Lanette Route Start Time Stop Time Status Last Admin Dose Admin Aspirin 81 mg ONCE ONCE PO 04/29/25 01:00 04/29/25 01:01 DC 04/29/25 01:20 81 MG Ondansetron HCl 4 mg Q4HP PRN IV 04/29/25 03:30 04/29/25 04:12 4 MG Sodium Chloride 1,000 ml @ 1,000 mls/hr Q1H ONCE IV 04/29/25 01:00 04/29/25 01:59 DC 04/29/25 01:10 1,000 MLS/HR Assessment/Plan Assessment/Plan #Sepsis due to acute gastroenteritis vs bacterial pneumonia #lactic acidosis #Hyperammonemia -lactic acid 2.3> 2.0 -Ammonia 2.6 -Blood culture -Metronidazole 500 mg IV Q 8 scheduled -Zofran 4 mg IV q.4 PRN -Stool bacterial WBC / gm stain -Stool bacterial culture -Stool occult blood -Clostridium difficile -Lactulose 30 mL p.o.once due to hyperammonemia -clear liquid diet -UDS #Cholelithiasis and moderate gallbladder distention #Hepatomegaly and liver cirrhosis. #Moderate intrahepatic biliary ductal dilatation #transaminitis likely due to liver disease #Lactic acidosis, resolving likely due to liver disease # hyperbilirubinemia -bilirubin 21.5 -AST 754, ALT 299, ALP 740 -abdominal CT and pelvis shows above findings -[facility] liver -acute hepatitis panel -MRCP -gastroenterology consult #Acute Gram-positive / Gram-negative bacterial pneumonia #bilateral pleural effusion #Hypoxic respiratory failure due to above -CT abdomen pelvis shows:Trace bilateral pleural effusions with adjacent atelectasis and patchy posterior bibasilar infiltrate. -chest x-ray -respiratory culture -COVID, flu -Vancomycin per pharmacy intravenous scheduled -Cefepime 1 g IV Q 8 scheduled #NSTEMI type 1 versus type 2 #? CHF # history of atrial flutter # hypertension # hyperlipidemia -BNP 556.92 -Troponins down trending 5003, 4922, 4758 -EKG no ST elevation seen, sinus rhythm -atenolol 25mg po daily bid -furosemide 40 mg b.i.d. -Echo -cardiology consult -maintains strict fluid restriction -Strict I&O -atorvastatin 40 mg stopped for now due to derranged labs -Lisinopril 40 mg p.o. daily -atenolol 25 mg b.i.d. daily #GÓMEZ due to VMN -Creatinine at 1.57, BUN 27 -Continue to monitor # thrombocytosis -platelet 531 -PTT/PT ordered #normocytic anemia -Hemoglobin 10.9, MCV 88.3 -Iron profile, ferritin, B12, folate #Diverticulosis coli without CT evidence of acute diverticulitis. - continue to monitor #history of hypothyroidism -continue levothyroxine 125mcg daily po #morbid obesity, BMI 53.3 -Patient was counseled regarding lifestyle modification, dietary changes, need of exercise and healthy lifestyle for over 8 minutes GI prophylaxis: Protonix 40 mg IV daily scheduled DVT prophylaxis: Lovenox 40 mg subcutaneous daily scheduled Diet: clear liquid diet Goals of care discussed with the patient for more than 27 minutes: Full code status Case discussed with , patient and her son. Plan discussed with: Patient, Son My Orders Orders - DONI ADEN RESIDENT Procedure Category Date Status Time Electrocardigram EKG 04/29/25 Logged 01:49 Admit ADMIT 04/29/25 Transmitted 03:18 Code Status CODE 04/29/25 Transmitted 03:18 Ondansetron Hcl PHA 04/29/25 In Process (Zofran) 03:30 Complete Blood Count LAB 04/30/25 Verified 04:00 Comprehensive LAB 04/30/25 Verified Metabolic Panel 04:00 Enoxaparin Sodium PHA 04/29/25 In Process (Lovenox) 03:30 Oxygen By Nasal RT 04/29/25 Transmitted Cannula 03:18 * Cardiology Consult CONS 04/29/25 Transmitted 03:18 Stool Wbc LAB 04/29/25 Logged 03:18 Stool Bacterial ELIDA 04/29/25 Logged Culture 03:18 Creatine Kinase LAB 04/29/25 In Process 03:18 Chest Xray 1 View XY 04/29/25 Logged 03:18 Covid19 Antigen Laya LAB 04/29/25 In Process Rapid Influenza A&B LAB 04/29/25 In Process 03:18 Metronidazole PHA 04/29/25 In Process 500mg/100ml (Flagyl 06:00 Urinalysis LAB 04/29/25 In Process 03:18 Clostridium Difficile ELIDA 04/29/25 Logged Toxin 03:18 Urine Bacterial ELIDA 04/29/25 In Process Culture 03:18 Respiratory Culture ELIDA 04/29/25 Logged W/ Gs 03:18 LIVER US 04/29/25 Logged 03:18 Vancomycin Per PHA 04/29/25 Pending Pharmacy 03:30 Cefepime 1gm/50ml PHA 04/29/25 In Process (Maxipime 1gm/50ml) 06:00 Acute Hepatitis Panel LAB 04/29/25 In Process 03:18 Hepatitis C Antibody LAB 04/29/25 In Process 03:18 Ammonia LAB 04/29/25 In Process 03:18 Clear Liq Diet DIET 04/29/25 Transmitted Breakfast Lactulose Oral PHA 04/29/25 In Process 10:00 Echo 2d Mode Cardiac US 04/29/25 Logged DOP 03:18 Drug Screen LAB 04/29/25 In Process 03:18 Mrcp Mri MRI 04/29/25 Logged 03:18 Furosemide Injection PHA 04/29/25 In Process (Lasix Injection) 06:00 Strict I & O SRINI 04/29/25 In Process 03:18 Maintain Fluid SRINI 04/29/25 In Process Restrictions 03:18 * Gi Dvh Furnace Puncher CONS 04/29/25 Transmitted 03:18 Insert/Manage Urinary SRINI 04/29/25 In Process Catheter 04:19 Vancomycin 1gm/250ml PHA 04/29/25 In Process Kit 04:30 Lipid Panel LAB 04/29/25 In Process 04:25 PTPTT LAB 04/29/25 In Process 04:25 Vitamin B12 LAB 04/29/25 In Process 04:25 Folate (Folic Acid) LAB 04/29/25 In Process 04:25 Ferritin LAB 04/29/25 In Process 04:25 Iron Panel LAB 04/29/25 In Process 04:25 Date of Service: Apr 29, 2025 Billing Provider: SEAN COELLO MD Date of Service: Apr 29, 2025 Billing Provider: SEAN COELLO MD [facility] Apr 29, 2025 05:04
[2025-04-29 05:16] LABS: Amphetamine Screen, Urine Neg (NEGATIVE); Barbiturate Scree,Urine Neg (NEGATIVE); Benzodiazephine Screen, Urine Neg (NEGATIVE); Cannabinoid Screen, Urine Neg (NEGATIVE); Cocaine Screen, Urine Neg (NEGATIVE); Opiate Scree,Urine Neg (NEGATIVE); Phencyclidine Screen, Urine Neg (NEGATIVE)
[2025-04-29 05:19] LABS: Urine Protein, UAD 1+ (Negative); Urine WBC Clumps PRESENT /hpf (None Seen)
[2025-04-29 05:50] LABS: HDL Cholesterol 8 mg/dL (40-59)
[2025-04-29 05:58] LABS: Iron 82.0 ug/dL (50-170)
[2025-04-29 06:11] LABS: INR 2.81 (0.9-1.15); Partial Thromboplastin Time 46.9 SEC (24.5-34.5); Prothrombin Time 26.9 sec (9.3-11.8)
[2025-04-29 06:13] LABS: Cholesterol 327 mg/dL (< 200); Triglycerides 490 mg/dL (< 150)
[2025-04-29 06:14] LABS: Total Iron Binding Capacity 233.0 ug/dL (250-425)
[2025-04-29] MEDS: FUROSEMIDE 40 MG/4 ML VIAL IV SCH (06:24)
[2025-04-29] MEDS: CEFEPIME 1GM/50ML 50 ML IV SCH (06:24)
[2025-04-29 06:30] LABS: COVID19 ANTIGEN SOFIA FIA NEGATIVE (NEGATIVE)
--- NOTE | 2025-04-29 06:39 | DVH ---
CHEST RADIOGRAPH Indication: sob Technique: Single frontal view of the chest was obtained COMPARISON: XY CHEST PORTABLE on DOS: 07/01/24, XY CHEST PORTABLE on DOS: 05/09/24 FINDINGS: Lines and Tubes: None Lungs: Increased interstitial prominence. This may represent pulmonary vascular congestion and/or vir al pneumonia. Pleura: No effusion. No pneumothorax. Cardiomediastinal contours: Cardiomegaly. Bones: Unremarkable IMPRESSION: Cardiomegaly. Increased interstitial prominence. This may represent pulmonary vascular congestion and/or viral pneumonia.
[2025-04-29] MEDS ORDERED: LEVOTHYROXINE SODIUM 25 MCG TAB PO SCH (07:00)
--- NOTE | 2025-04-29 07:13 | DVH ---
INDICATION: transaminitis TECHNIQUE: Multiple real-time sonographic images were obtained of the right upper quadrant. COMPARISON: None FINDINGS: The liver demonstrates heterogeneous echotexture without focal mass lesions. The liver antonio sures 18.5 cm. Multiple heterogeneous ill-defined hypoechoic lesions in the liver measuring up to 4.5 cm in the left hepatic lobe. There is no intrahepatic or extrahepatic ductal dilatation. The common duct is suboptimally visualize d. Cholelithiasis. The gallbladder wall measures 0.2 cm and is within normal limits. The right kidney measures 11.1 cm. The right kidney is normal in contour, size, and shape. The echoge nicity is normal. There is no hydronephrosis. The pancreas is not well visualized due to overlying bowel gas. IMPRESSION: Hepatomegaly. Heterogeneous liver with suggestion of multiple hypoechoic lesions measuring up to 4.5 cm in the left hepatic lobe. Nonemergent CT or MRI liver mass protocol recommended for further evaluation left clin ically indicated. Cholelithiasis.
--- NOTE | 2025-04-29 08:05 | ECG ---
[facility] Test Date: 2025-04-29 Test Time: 02:14:26 Pat Name: ARELIS CROWLEY Department: [facility] ED Patient ID: [id number] Room: [address] [place] [address] Gender: F Critical Care Technician: DEAN : 1950 Requested By: DONI ADEN Order Number: [id number] Reading MD: Measurements Intervals [place] Rate: 95 P: 89 DC: 187 QRS: 93 QRSD: 114 T: 32 QT: 375 QTc: 472 Interpretive Statements Sinus rhythm Borderline intraventricular conduction delay Low voltage, precordial leads Baseline wander in lead(s) II Please click the below link to view image of tracing.
[2025-04-29] MEDS: LEVOTHYROXINE SODIUM 100 MCG TAB PO SCH (08:10)
[2025-04-29] MEDS: LEVOTHYROXINE SODIUM 25 MCG TAB PO SCH (08:10)
[2025-04-29] MEDS ORDERED: LACTULOSE 20Gm/30ML SOLN PO SCH (10:00)
[2025-04-29] MEDS ORDERED: CEFEPIME 1GM/50ML 50 ML IV SCH (10:00)
[2025-04-29] MEDS ORDERED: LISINOPRIL 20 MG TAB PO SCH (10:00)
[2025-04-29] MEDS ORDERED: ATORVASTATIN 20 MG TAB PO SCH (10:00)
[2025-04-29] MEDS: PANTOPRAZOLE 40 MG/10 ML VIAL INJ IV SCH (10:06)
[2025-04-29] MEDS: ATENOLOL 25 MG TAB PO SCH (10:07)
--- NOTE | 2025-04-29 10:58 | DVHCONRES ---
Date Seen: Apr 29, 2025 Resident Creating Document: DAVID WHITTINGTON RESIDENT Referring Physician Dr Lemons Reason for Consultation Elevated Troponins History of Present Illness A 74-year-old female with a past medical history of hypertension, hyperlipidemia, hypothyroidism, diverticulosis, atrial flutter, and chronic right-sided heart failure (EF 65%, RSVP 70 mmHg) who was admitted with progressive weakness, shortness of breath, lethargy, vomiting, and altered mental status for the past three weeks. Initial work-up revealed leukocytosis, hyponatremia, mild acute kidney injury, and markedly elevated liver enzymes and bilirubin. UA was positive for nitrates. CT abdomen showed hepatomegaly, gallstones, gallbladder distention, and colonic diverticulosis. Findings were consistent with possible biliary or GI sepsis. Pending MRCP Cardiology was consulted for elevated troponins (5003 --> 4922 --> 4758 --> 4490 ng/L ). EKG now shows sinus rhythm; previously noted atrial fibrillation with RVR on 05/10/24, when she was diagnosed with NSTEMI but no intervention was performed. She denies chest pain or new dyspnea at rest. WBC 14 K/L, Hgb 10.9 g/dL, Plt 531 K/L. PT 26.9 s, INR 2.81. Na 126 mmol/L, K 4.0 mmol/L, Cr 1.57 mg/dL. TBili 21.5 mg/dL, AST 754 U/L, ALT 299 U/L. Troponin 5003 --> 4922 --> 4758 --> 4490 ng/L. UA: Nitrates positive. Past Medical History HTN, HLD, hypothyroidism, diverticulitis with need of drainage, UTI, atrial flutter, chronic right heart failure (EF 65%) with pulmonary HTN, history of afib with RVR (Apr 2024). Past Surgical History Diverticulitis status post abscess drainage Family History: Hypertension G8 MOTHER, , Age: 99 Allergies: Coded Allergies: NO KNOWN ALLERGIES (Unverified , 05/09/24) Home Meds Active Scripts Fluconazole (Fluconazole) 100 Mg Tab, 400 MG PO DAILY for 14 Days, #56 TAB Prov:QUINCY HURST MD 06/05/24 Cefpodoxime Proxetil (Cefpodoxime Proxetil) 200 Mg Tab, 1 TAB PO BID, #14 TAB Prov:QUINCY HURST MD 06/05/24 Linezolid (Zyvox) 600 Mg Tab, 600 MG PO BID for 14 Days, #28 TAB Prov:QUINCY HURST MD 06/04/24 Cefpodoxime Proxetil (Cefpodoxime Proxetil) 200 Mg Tab, 200 MG PO BID for 14 Days, #28 TAB Prov:QUINCY HURST MD 06/04/24 Fluconazole (Fluconazole) 100 Mg Tab, 400 MG PO DAILY for 14 Days, #56 TAB Prov:QUINCY HURST MD 06/04/24 Reported Medications Atorvastatin Calcium (ATORVASTATIN CALCIUM) 40 Mg Tab, 1 TAB PO DAILY 07/01/24 Ascorbic Acid (VITAMIN C TABLET) 500 Mg Tb, PO, TAB 05/10/24 Vitamin A (Synthetic) (Vitamin A) 1 Pow Pow, 1 XX, POW 05/10/24 Cholecalciferol (VITAMIN D3) 2,000 Unit Tab, PO, TAB 05/10/24 [place]-3 Fatty Acids ([place]-3) 1,400 Mg Cap, PO, CAP 05/10/24 Levothyroxine Sodium (Levothyroxine Sodium) 125 Mcg Tab, 125 MCG PO QAM for 30 Days, MCG 05/10/24 Lisinopril (Lisinopril) 40 Mg Tab, 40 MG PO DAILY for 30 Days, MG 05/10/24 Atenolol (Atenolol) 25 Mg Tab, 25 MG PO BID for 30 Days, MG 05/10/24 Home Meds Atorvastatin 40 mg daily, losartan 40 mg daily, atenolol 25 mg daily, amlodipine 10 mg daily, levothyroxine 125 mcg daily. Current Medications Current Medications Medications (Trade) Dose Ordered Sig/Lanette Route PRN Reason Start Time Stop Time Status Last Admin Ondansetron HCl (Zofran) 4 mg Q4HP PRN IV NAUSEA / VOMITING 04/29/25 03:30 04/29/25 04:12 Enoxaparin Sodium (Lovenox) 40 mg DAILY SC 04/29/25 03:30 04/29/25 03:30 Metronidazole 100 ml @ 100 mls/hr Q8HR IV 04/29/25 06:00 04/29/25 06:23 Vancomycin HCl 0 ml @ 0 mls/hr UD IV 04/29/25 03:30 Cefepime HCl 50 ml @ 12.5 mls/hr Q12HR IV 04/29/25 10:00 UNV Cefepime HCl 50 ml @ 12.5 mls/hr Q8HR IV 04/29/25 06:00 04/29/25 10:37 Lactulose 30 ml BID PO 04/29/25 10:00 04/29/25 06:05 DC Furosemide (Lasix Injection) 40 mg BIDD IV 04/29/25 06:00 04/29/25 06:24 Vancomycin HCl 250 ml @ 250 mls/hr Q1H IV 04/29/25 04:30 04/29/25 06:29 DC 04/29/25 05:00 Pantoprazole Sodium (Protonix) 40 mg DAILY IV 04/29/25 10:00 04/29/25 10:06 Atenolol (Tenormin Tablet) 25 mg BID PO 04/29/25 10:00 04/29/25 10:07 Atorvastatin Calcium (Lipitor) 40 mg DAILY PO 04/29/25 10:00 04/29/25 06:06 DC Levothyroxine Sodium (Synthroid Tablet) 125 mcg QAM PO 04/29/25 07:00 04/29/25 07:48 DC Lisinopril (Zestril Tablet) 40 mg DAILY PO 04/29/25 10:00 Hold Levothyroxine Sodium (Synthroid Tablet) 100 mcg QAM@0600 PO 04/29/25 07:49 04/29/25 08:10 Levothyroxine Sodium (Synthroid Tablet) 25 mcg QAM@0600 PO 04/29/25 07:48 04/29/25 08:10 Sodium Chloride 1,000 ml @ 75 mls/hr [id number] IV 04/29/25 18:00 Review of Systems Limited due to mental status; otherwise negative for chest pain, palpitations, or orthopnea. Positive for fatigue, dyspnea, and nausea/vomiting. Vital Signs Vital Signs Date Time Temp Pulse Resp B/P (MAP) Pulse Ox O2 Delivery O2 Flow Rate FiO2 04/29/25 10:07 92 120/82 04/29/25 07:25 Nasal Cannula* 2 28 04/29/25 06:00 99.0 16 97 99.0 Physical Exam General: Ill-appearing, drowsy on O2. HEENT: jaundice Cardiac: Regular rate and rhythm, no murmurs or rubs. Lungs: Decreased breath sounds at bases, mild crackles. Abdomen: Soft, mildly distended, tender in RUQ, hepatomegaly noted. Extremities: Trace bilateral LE edema. Neuro: Oriented 2, sluggish responses. Labs/Diagnostic Data Labs Test 04/29/25 04:05 04/29/25 03:50 04/29/25 03:48 04/29/25 03:04 Range/Units Prothrombin Time 26.9 H 9.3-11.8 sec Prothrombin Time INR 2.81 H 0.9-1.15 Activated Partial Thromboplast Time 46.9 H 24.5-34.5 SEC Iron Level 82 50-170 ug/dL Total Iron Binding Capacity 233 L 250-425 ug/dL Percent Iron Saturation 35.2 15-50 % Ammonia 41 H 11-32 umol/L Triglycerides Level 490 H < 150 mg/dL Cholesterol Level 327 H < 200 mg/dL LDL Cholesterol < 100 mg/dL HDL Cholesterol 8 L 40-59 mg/dL Lipase 75 H 12-53 U/L Influenza Type A Antigen Negative Negative Influenza Type B Antigen Negative Negative SARS-CoV-2 Antigen (Rapid) Negative NEGATIVE Urine Color Dark-yellow Yellow Urine Clarity Ex.turbid Clear Urine pH 6.0 5.0-9.0 Urine Specific [place] 1.018 1.001-1.035 Urine Protein 1+ H Negative Urine Ketones Negative Negative Urine Blood 3+ H Negative /uL Urine Nitrite Negative Negative Urine Bilirubin 3+ H Negative Urine Urobilinogen Normal Negative mg/dL Urine Leukocyte Esterase 3+ Negative /uL Urine RBC 3 0 - 4 /hpf Urine WBC Clumps Present None Seen /hpf Urine Microscopic WBC 204 H 0-5 /HPF Urine Squamous Epithelial Cells Few <5 /hpf Urine Bacteria None seen None Seen /hpf Urine Hyaline Casts Few 0 - 2 /lpf Urine Glucose Normal Normal mg/dL Urine Opiates Screen Neg NEGATIVE Urine Fentanyl Screen Neg NEGATIVE Urine Barbiturates Screen Neg NEGATIVE Urine Phencyclidine Screen Neg NEGATIVE Urine Amphetamines Screen Neg NEGATIVE Urine Benzodiazepines Screen Neg NEGATIVE Urine Cocaine Screen Neg NEGATIVE Urine Cannabinoids Screen Neg NEGATIVE Troponin I High Sensitivity 4758 *H </=34 ng/L Test 04/29/25 00:10 04/28/25 22:44 Range/Units Sodium Level 126 L 136-145 mmol/L Potassium Level 4.0 3.5-5.1 mmol/L Chloride Level 94 L 98-107 mmol/L Carbon Dioxide Level 20 20-31 mmol/L Anion Gap 12 5-15 Blood Urea Nitrogen 27 H 9-23 mg/dL Creatinine 1.57 H 0.550-1.02 mg/dL Glomerular Filtration Rate Calc 34 >90 mL/min BUN/Creatinine Ratio 17.2 10.0-20.0 Serum Glucose 96 74-106 mg/dL Lactic Acid Level 2.0 0.4-2.0 mmol/L Calcium Level 8.5 L 8.7-10.4 mg/dL Magnesium Level 2.1 1.6-2.6 mg/dL Total Bilirubin 21.5 H 0.2-1.0 mg/dL Aspartate Amino Transferase (AST) 754 H 13-40 U/L Alanine Aminotransferase (ALT) 299 H 7-40 U/L Alkaline Phosphatase 748 H 46-116 U/L Creatine Kinase 4724 H 34-145 U/L B-Type Natriuretic Peptide 556.92 0-100 pg/mL Total Protein 6.2 5.7-8.2 g/dL Albumin 2.7 L 3.2-4.8 g/dL Plasma/Serum Blood Alcohol < 3.0 <10 mg/dL White Blood Count 14.0 H 4.4-10.8 10^3/uL Red Blood Count 3.64 L 4.0-5.20 10^6/uL Hemoglobin 10.9 L 12.2-16.2 g/dL Hematocrit 32.2 L 36.0-46.0 % Mean Corpuscular Volume 88.3 80.0-100.0 fL Mean Corpuscular Hemoglobin 30.0 28.0-32.0 pg Mean Corpuscular Hemoglobin Concent 34.0 32.0-36.0 g/dL Red Cell Distribution Width 21.3 H 11.8-14.3 % Platelet Count 531 H 140-450 10^3/uL Mean Platelet Volume 9.9 6.9-10.8 fL Neutrophils (%) (Auto) 37.0-80.0 % Lymphocytes (%) (Auto) 10.0-50.0 % Monocytes (%) (Auto) 0.0-12.0 % Basophils (%) (Auto) 0.0-2.0 % Neutrophils # (Auto) 1.6-8.6 10 ^3/uL Lymphocytes # (Auto) 0.4-5.4 10 ^3/uL Monocytes # (Auto) 0-1.3 10 ^3/uL Differential Total Cells Counted 100.0 100 Neutrophils % (Manual) 72 37.0-80.0 Band Neutrophils % (Manual) 0 Lymphocytes % (Manual) 17 10.0-50.0 Monocytes % (Manual) 9 0-12 Eosinophils % (Manual) 1 0-7 Basophils % (Manual) 0 0.0-2.0 Metamyelocytes % (manual) 0 Myelocytes % (Manual) 1 Promyelocytes % (Manual) 0 Blast Cells % (Manual) 0 Reactive Lymphocytes 0 Platelet Estimate Increased Anisocytosis (manual) Slight Assessment Sepsis secondary to GI/ biliary source GI bleeding Acute liver failure NSTEMI likely type 2 Paroxysmal atrial fibrillation/flutter [id number] 5 HASBLED 3 Acute respiratory failure Acute on chronic right side heart failure Pulmonary hypertension Hypertension Hyperlipidemia Hypothyroidism Plan/Recommendation Patient is having GI/billiary sepsis, acute liver failure and GI bleeding, her NSTEMI likely type 2 is secondary to sepsis and demand ischemia. Continue telemetry monitoring, troponins are trending down; no ACS-specific therapy indicated at this time, due to poor prognosis and possible multiorgan failure. Hold anticoagulation given high HAS-BLED score. GI bleeding (FOB positive) and current coagulopathy (INR 2.8). Given soft BPs, hold on beta-patito for rate control for now due to sepsis, right now on sinus rhythm. Repeat echocardiogram to reassess LV function, wall motion, and pulmonary pressures. Continue diuresis for her current CHF, we are agree on Lasix 40 mg BID. Continue cefepime and metronidazole for suspected GI or biliary source of sepsis, pending GI recommendations and MRCP. close monitoring of LFTs, renal function, and electr olytes. Reassess sodium and creatinine daily. Monitor for recurrence of arrhythmia. Cardiology will follow the echocardiogram results and overall clinical progression. pt on hospice with hx of RV failure cirrhosis? GB problems bili of 21!!! severe jaundiced, nstemi and trop check echo INR of 2.8 fulminant liver failure, fu with GI and specialist rec no heparin no asa no statin conservative management her prognosis is very poor, 40 mins critical care time spent Plan discussed with: Patient, Son DAVID WHITTINGTON Apr 29, 2025 10:58 SKY MAE MD Apr 29, 2025 14:45
[2025-04-29 11:26] LABS: Hepatitis B Surface Antigen Negative (Negative)
[2025-04-29 12:02] LABS: Hepatitis C Antibody Negative (Negative)
[2025-04-29 13:55] LABS: Ferritin 1566.8 ng/mL (10-291)
[2025-04-29 14:49] LABS: Hematocrit 32.6 % (36.0-46.0); Hemoglobin 10.4 g/dL (12.2-16.2); Mean Corpuscular Hemoglobin 29.0 pg (28.0-32.0); Mean Corpuscular Volume 91.3 fL (80.0-100.0)
[2025-04-29] MEDS: HYDROMORPHONE HCL 1 MG/ML INJ IV PRN (14:49)
[2025-04-29 15:04] LABS: Anion Gap 12 (5-15); Glucose 100 mg/dL (74-106); Magnesium 1.9 mg/dL (1.6-2.6); Potassium 3.9 mmol/L (3.5-5.1)
[2025-04-29 15:06] LABS: Albumin 2.7 g/dL (3.2-4.8); Alkaline Phosphatase 725 U/L (46-116); Bilirubin, Total 20.1 mg/dL (0.2-1.0); Calcium 8.4 mg/dL (8.7-10.4); Carbon Dioxide 17 mmol/L (20-31); Chloride 97 mmol/L (98-107); Sodium 126 mmol/L (136-145)
[2025-04-29 15:12] LABS: Alanine Aminotransferase 287 U/L (7-40); BUN/Creatinine Ratio 16.9 (10.0-20.0); Blood Urea Nitrogen 27 mg/dL (9-23); Total Protein 5.7 g/dL (5.7-8.2)
--- NOTE | 2025-04-29 15:19 | DVHPNRES ---
Progress Note Date Seen: Apr 29, 2025 Resident Creating Document: JANNET CORTES RESIDENT Medical Necessity Reason Pt with a Central, PICC or Fol: Yes The following are medically ne: Haro Catheter Subjective Review of Systems Brief history on admission: This is a 74-year-old female with a past medical history of hypertension, hyperlipidemia, hypothyroidism, diverticulitis s/p abscess drainage (05/2024), atrial flutter, acute complicated cystitis who came in with a chief complaint of generalized weakness for the past 3 weeks and pruritus all over the body. Patient reports that 3 weeks ago when she got out from bed she felt sudden weakness in her body and was unable to take another step and felt limp. She contacted a Dr. Wooten via tele services who suggested it could be COVID but she never did the COVID test. Patient has also noticed that she is becoming increasingly yellow and itchiness since last 4 weeks. She also complains that she had nausea, 1 episode of vomiting as well as 6-7 episodes of watery diarrhea started before coming to the ER. Stools are described as watery, not mixed with blood or mucus in the stool today morning. She reports that she felt more tired than usual, with low energy levels and was unable to move which prompted the visit to the emergency room. Patient's son was at the bedside who reported that on Tuesday, during video call patient seemed to have slurring of speech and sounded intoxicated. Patient denies any chest pain, slurring of speech, fever, weakness in 1 side of the body, drooling, recent travel, recent food from outside, cough. She does report that she has no appetite and can only tolerate some fruits. Patient is septic on presentation with pulse of 98, WBC 14.0. Hemoglobin is 10.9, platelet 531. Liver enzymes are elevated with AST 754, ALT 299, ALP 748, total bilirubin 21.5 and troponin I scores are high at 5003, 4922, 4758. Patient also has elevated ammonia, CK, lipase. UA positive for UTI. CT abdomen and pelvis shows trace bilateral pleural effusion with adjacent atelectasis and patchy posterior bibasilar infiltrates, cardiomegaly, hepatomegaly and cirrhosis, moderate intrahepatic biliary duct dilation, cholelithiasis and moderate gallbladder distention, diverticulosis without diverticulitis. Liver ultrasound shows multiple hypoechoic lesions in left hepatic lobe. CXR shows cardiomegaly, increased interstitial prominence. Previous hospitalization: In May 2024 for diverticulitis and intra- abdominal abscess Past medical history: Hypertension, hyperlipidemia, hypothyroidism, diverticulosis with abscess, recurrent UTI Past surgical history: Diverticulitis status post abscess drainage Social history: Patient denies ever smoking, drinking alcohol or using illicit drugs Home medications: Atorvastatin 40 mg, lisinopril 40 mg, atenolol 25 mg, amlodipine 10 mg, levothyroxine 125 mcg Primary care physician: Dr. Wooten Code status: Full code 04/29/25: Patient was examined at bedside today. Patient continues to complain of diarrhea and abdominal pain. Discontinued in context of elevated CK. Pending MRCP. GI and Cardiology consulted. Objective vital signs Vital Sign Date Time Temp Pulse Resp B/P (MAP) Pulse Ox O2 Delivery O2 Flow Rate FiO2 04/29/25 13:09 84 04/29/25 12:00 20 115/42 (66) 96 04/29/25 08:00 97.9 97.9 04/29/25 07:25 Nasal Cannula* 2 28 Total Intake and Output 04/28/25 04/28/25 04/29/25 15:00 23:00 07:00 Intake Total 1250 ml Balance 1250 ml medications Current Medications Medications Dose Ordered Sig/Lanette Route Start Time Stop Time Status Last Admin Dose Admin Ondansetron HCl 4 mg Q4HP PRN IV 04/29/25 03:30 04/29/25 04:12 4 MG Metronidazole 100 ml @ 100 mls/hr Q8HR IV 04/29/25 06:00 04/29/25 14:08 100 MLS/HR Vancomycin HCl 0 ml @ 0 mls/hr UD IV 04/29/25 03:30 Cefepime HCl 50 ml @ 12.5 mls/hr Q12HR IV 04/29/25 10:00 UNV Cefepime HCl 50 ml @ 12.5 mls/hr Q8HR IV 04/29/25 06:00 04/29/25 10:37 12.5 MLS/HR Furosemide 40 mg BIDD IV 04/29/25 06:00 04/29/25 06:24 40 MG Pantoprazole Sodium 40 mg DAILY IV 04/29/25 10:00 04/29/25 10:06 40 MG Atenolol 25 mg BID PO 04/29/25 10:00 04/29/25 10:07 25 MG Lisinopril 40 mg DAILY PO 04/29/25 10:00 Hold Levothyroxine Sodium 100 mcg QAM@0600 PO 04/29/25 07:49 04/29/25 08:10 100 MCG Levothyroxine Sodium 25 mcg QAM@0600 PO 04/29/25 07:48 04/29/25 08:10 25 MCG Sodium Chloride 1,000 ml @ 75 mls/hr [id number] IV 04/29/25 18:00 Hydromorphone HCl 0.25 mg Q4HPRN PRN IV 04/29/25 14:15 Examination General: Jaundice. Patient alert and oriented in person, place and time. Patient following commands. HEENT: Bilateral scleral icterus. Normocephalic, atraumatic, moist mucous membranes Respiratory/pulmonary: Clear lungs bilaterally, vesicular murmurs present in almost all lung torres, no associated crackles or wheezes. Cardiovascular: Normal heart sounds S1 and S2 with no associated murmurs Abdomen: Abdominal tenderness on deep palpation. No distention, soft abdomen. Extremities: 2+ bilateral pitting edema up to the knee. Skin: No rashes or pruritus, there is no sacral edema present at this time. Neurological: Intact cranial nerves with no focal neurologic deficits laboratory and microbiology Laboratory Tests 04/29/25 00:10 04/28/25 22:44 Test 04/29/25 00:10 Range/Units Serum Glucose 96 74-106 mg/dL Problem List/Assessment/Plan Problem List/Assessment/Plan Sepsis due to below Acute infectious gastroenteritis Cholelithiasis Acute cholangitis, likely Hepatomegaly and liver cirrhosis. Moderate intrahepatic biliary ductal dilatation Possible coagulopathy due to above with up trending INR Acute liver failure, possible Hyperammonemia GI bleed can not be ruled out MELD score 36 USG liver shows hepatomegaly, heterogeneous liver with suggestion of multiple hypoechoic lesions measuring up to 4.5 cm in the left hepatic lobe, cholelithiasis CT abdomen shows trace pleural effusion, cardiomegaly, hepatomegaly, cirrhosis, biliary ductal dilation, cholelithiasis, gallbladder distention, diverticulosis without diverticulitis. Acute hepatitis panel, MRCP pending Blood culture, stool culture, stool WBC, C diff, stool occult blood ordered Metronidazole 500 mg IV Q 8 scheduled Zofran 4 mg IV q.4 PRN Lactulose 30 mL p.o.once due to hyperammonemia Clear liquid diet Pending Gastroenterology consult Acute Gram-positive / Gram-negative bacterial pneumonia Bilateral pleural effusion Hypoxic respiratory failure due to above CT abdomen pelvis shows trace bilateral pleural effusions with adjacent atelectasis and patchy posterior bibasilar infiltrate. Chest x-ray shows cardiomegaly, increased interstitial prominence COVID, influenza serology negative Sputum culture ordered IV Vancomycin per pharmacy intravenous scheduled IV Cefepime 1 g IV Q 8 scheduled NSTEMI type 1 versus type 2 Chronic diastolic heart failure History of atrial flutter Hypertension Hyperlipidemia Elevated BNP 556.92, Troponins down trending 5003, 4922, [address] elevation seen, sinus rhythm Echocardiogram from 05/11/2024 shows LVEF 55%, grade 1 diastolic dysfunction. Repeat echocardiogram Cardiology consulted Continue furosemide 40 mg b.i.d. Maintains strict fluid restriction Strict I&O Holding off Atorvastatin 40 mg in context of elevated CK Holding off Lisinopril 40 mg p.o. daily in context of GÓMEZ Holding off Atenolol 25mg po daily bid in context of sepsis, as recommended by Cardiology GÓMEZ on CKD class 4 hemodynamically mediated (VMN) Creatinine at 1.57, BUN 27 Continue to monitor Reactive Thrombocytosis Platelet 531 Elevated PTT/PT Normocytic anemia, unspecified Hemoglobin 10.9, MCV 88.3 Normal iron, % saturation. Low TIBC, elevated ferritin. Diverticulosis without diverticulitis. Continue to monitor Hypothyroidism Continue levothyroxine 125mcg daily po Morbid obesity, BMI 53.3 Pancreatitis, ruled out DIET: NPO DVT PROPHYLAXIS: Sequential compression device GI PROPHYLAXIS: Protonix CODE STATUS: Goals of care discussed with patient at bedside for more than 20 minutes. Full code DISPOSITION: Telemetry This medical document was created using an electronic medical record system with [employer] direct computerized dictation system. Although this document has been carefully reviewed, there may still be some phonetic and typographical errors. These areas are purely typographical due to imperfections of the software programs, and do not reflect any compromise in the patient's medical care. Patient's status and plan discussed with the patient, son, daughter. Case discussed with Dr. Pickard Plan discussed with: Patient, Son My Orders My Orders Orders - JANNET CORTES RESIDENT Procedure Category Date Status Time Sodium Chloride 0.9% PHA 04/29/25 In Process 18:00 Sodium Chloride 0.9% PHA 04/29/25 In Process 10:00 JANNET CORTES RESIDENT Apr 29, 2025 15:19 MYKE LE RESIDENT Apr 29, 2025 18:58
[2025-04-29 15:45] LABS: Anisocytosis Slight; Total Cells Counted 100.0 (100)
[2025-04-29 17:41] LABS: Partial Thromboplastin Time 60.5 SEC (24.5-34.5); Prothrombin Time 40.1 sec (9.3-11.8)
[2025-04-29 17:54] LABS: INR 4.38 (0.9-1.15)
[2025-04-29] MEDS ORDERED: SODIUM CHLORIDE 0.9% 1,000 ML IV SCH (18:00)
[2025-04-29 19:30] VITALS: PULSE 75; RESP 18; O2SAT 95
--- NOTE | 2025-04-29 21:13 | DVHINCON2 ---
Date of service: Apr 29, [address] Lemons Reason for Consultation Patient with jaundice and hepatomegaly gallbladder distention History of Present Illness This 73-year-old female with a history of hypertension hyperlipidemia hypothyroidism he is admitted and atrial flutter was admitted with complaints of generalized weakness with pruritus all over the body. Patient complaints of weakness and tiredness also apparently she was going to be attributing to possible COVID but never did a COVID test Note is that she has been increasingly becoming yellow and with slurring of speech fever weakness Travel no history of any unusual food ingestion no history of any hepatitis or otherLiver problems in the past Denied any significant weight loss Has got history of diverticulitis with abscess for which she had drainage done in the past Past Medical History History of hypertension hyperlipidemia diverticulosis with a abscess Family History: Hypertension G8 MOTHER, , Age: 99 Family History Non Contributory Social History Denied any smoking or drinking Allergies: Coded Allergies: NO KNOWN ALLERGIES (Unverified , 05/09/24) Home Meds Active Scripts Fluconazole (Fluconazole) 100 Mg Tab, 400 MG PO DAILY for 14 Days, #56 TAB Prov:QUINCY HURST MD 06/05/24 Cefpodoxime Proxetil (Cefpodoxime Proxetil) 200 Mg Tab, 1 TAB PO BID, #14 TAB Prov:QUINCY HURST MD 06/05/24 Linezolid (Zyvox) 600 Mg Tab, 600 MG PO BID for 14 Days, #28 TAB Prov:QUINCY HURST MD 06/04/24 Cefpodoxime Proxetil (Cefpodoxime Proxetil) 200 Mg Tab, 200 MG PO BID for 14 Days, #28 TAB Prov:QUINCY HURST MD 06/04/24 Fluconazole (Fluconazole) 100 Mg Tab, 400 MG PO DAILY for 14 Days, #56 TAB Prov:QUINCY HURST MD 06/04/24 Reported Medications Atorvastatin Calcium (ATORVASTATIN CALCIUM) 40 Mg Tab, 1 TAB PO DAILY 07/01/24 Ascorbic Acid (VITAMIN C TABLET) 500 Mg Tb, PO, TAB 05/10/24 Vitamin A (Synthetic) (Vitamin A) 1 Pow Pow, 1 XX, POW 05/10/24 Cholecalciferol (VITAMIN D3) 2,000 Unit Tab, PO, TAB 05/10/24 [place]-3 Fatty Acids ([place]-3) 1,400 Mg Cap, PO, CAP 05/10/24 Levothyroxine Sodium (Levothyroxine Sodium) 125 Mcg Tab, 125 MCG PO QAM for 30 Days, MCG 05/10/24 Lisinopril (Lisinopril) 40 Mg Tab, 40 MG PO DAILY for 30 Days, MG 05/10/24 Atenolol (Atenolol) 25 Mg Tab, 25 MG PO BID for 30 Days, MG 05/10/24 Current Medications Current Medications Medications (Trade) Dose Ordered Sig/Lanette Route PRN Reason Start Time Stop Time Status Last Admin Ondansetron HCl (Zofran) 4 mg Q4HP PRN IV NAUSEA / VOMITING 04/29/25 03:30 04/29/25 14:48 Enoxaparin Sodium (Lovenox) 40 mg DAILY SC 04/29/25 03:30 04/29/25 14:00 DC 04/29/25 03:30 Metronidazole 100 ml @ 100 mls/hr Q8HR IV 04/29/25 06:00 04/29/25 14:08 Vancomycin HCl 0 ml @ 0 mls/hr UD IV 04/29/25 03:30 Cefepime HCl 50 ml @ 12.5 mls/hr Q12HR IV 04/29/25 10:00 UNV Cefepime HCl 50 ml @ 12.5 mls/hr Q8HR IV 04/29/25 06:00 04/29/25 10:37 Lactulose 30 ml BID PO 04/29/25 10:00 04/29/25 06:05 DC Furosemide (Lasix Injection) 40 mg BIDD IV 04/29/25 06:00 04/29/25 18:13 Vancomycin HCl 250 ml @ 250 mls/hr Q1H IV 04/29/25 04:30 04/29/25 06:29 DC 04/29/25 05:00 Pantoprazole Sodium (Protonix) 40 mg DAILY IV 04/29/25 10:00 04/29/25 10:06 Atenolol (Tenormin Tablet) 25 mg BID PO 04/29/25 10:00 Hold 04/29/25 10:07 Atorvastatin Calcium (Lipitor) 40 mg DAILY PO 04/29/25 10:00 04/29/25 06:06 DC Levothyroxine Sodium (Synthroid Tablet) 125 mcg QAM PO 04/29/25 07:00 04/29/25 07:48 DC Lisinopril (Zestril Tablet) 40 mg DAILY PO 04/29/25 10:00 Hold Levothyroxine Sodium (Synthroid Tablet) 100 mcg QAM@0600 PO 04/29/25 07:49 04/29/25 08:10 Levothyroxine Sodium (Synthroid Tablet) 25 mcg QAM@0600 PO 04/29/25 07:48 04/29/25 08:10 Sodium Chloride 1,000 ml @ 75 mls/hr [id number] IV 04/29/25 18:00 04/29/25 16:33 DC Hydromorphone HCl (Dilaudid Injection) 0.25 mg Q4HPRN PRN IV MODERATE PAIN (4-6 PAIN SCALE) 04/29/25 14:15 04/29/25 14:49 Review of Systems Noncontributory Vital Signs Vital Signs Date Time Temp Pulse Resp B/P (MAP) Pulse Ox O2 Delivery O2 Flow Rate FiO2 04/29/25 20:25 98.1 77 20 116/53 (74) 95 98.1 04/29/25 19:30 Nasal Cannula* 2 28 Physical Exam Moderately built and nourished female in no acute distress vital signs stable Patient HEENT examination scleral icterus Lungs clear Vascular unremarkable Meds so doughy feeling but no rigidity no guarding no masses Extremities no edema no varicosities no clubbing Neurological grossly intact Pertinent labs included a hemoglobin of 10.9 [place] [address] platelets of 531 bilirubin is 21.5 AST 754 ALT is 299 alk phos is 748 since seven creatinine is 1.5 Labs/Diagnostic Data Labs Test 04/29/25 16:41 04/29/25 14:43 04/29/25 10:00 04/29/25 04:05 Range/Units Prothrombin Time 40.1 H 9.3-11.8 sec Prothrombin Time INR 4.38 *H 0.9-1.15 Activated Partial Thromboplast Time 60.5 H 24.5-34.5 SEC White Blood Count 17.9 #H 4.4-10.8 10^3/uL Red Blood Count 3.57 L 4.0-5.20 10^6/uL Hemoglobin 10.4 L 12.2-16.2 g/dL Hematocrit 32.6 L 36.0-46.0 % Mean Corpuscular Volume 91.3 80.0-100.0 fL Mean Corpuscular Hemoglobin 29.0 28.0-32.0 pg Mean Corpuscular Hemoglobin Concent 31.8 L 32.0-36.0 g/dL Red Cell Distribution Width 20.1 H 11.8-14.3 % Platelet Count 411 140-450 10^3/uL Mean Platelet Volume 8.6 6.9-10.8 fL Neutrophils (%) (Auto) 37.0-80.0 % Lymphocytes (%) (Auto) 10.0-50.0 % Monocytes (%) (Auto) 0.0-12.0 % Basophils (%) (Auto) 0.0-2.0 % Neutrophils # (Auto) 1.6-8.6 10 ^3/uL Lymphocytes # (Auto) 0.4-5.4 10 ^3/uL Monocytes # (Auto) 0-1.3 10 ^3/uL Differential Total Cells Counted 100.0 100 Neutrophils % (Manual) 86 H 37.0-80.0 Band Neutrophils % (Manual) 2 Lymphocytes % (Manual) 7 L 10.0-50.0 Monocytes % (Manual) 5 0-12 Eosinophils % (Manual) 0 0-7 Basophils % (Manual) 0 0.0-2.0 Metamyelocytes % (manual) 0 Myelocytes % (Manual) 0 Promyelocytes % (Manual) 0 Blast Cells % (Manual) 0 Reactive Lymphocytes 0 Platelet Estimate Adequate Anisocytosis (manual) Slight Sodium Level 126 L 136-145 mmol/L Potassium Level 3.9 3.5-5.1 mmol/L Chloride Level 97 L 98-107 mmol/L Carbon Dioxide Level 17 L 20-31 mmol/L Anion Gap 12 5-15 Blood Urea Nitrogen 27 H 9-23 mg/dL Creatinine 1.60 H 0.550-1.02 mg/dL Glomerular Filtration Rate Calc 33 >90 mL/min BUN/Creatinine Ratio 16.9 10.0-20.0 Serum Glucose 100 74-106 mg/dL Calcium Level 8.4 L 8.7-10.4 mg/dL Magnesium Level 1.9 1.6-2.6 mg/dL Total Bilirubin 20.1 H 0.2-1.0 mg/dL Aspartate Amino Transferase (AST) 723 H 13-40 U/L Alanine Aminotransferase (ALT) 287 H 7-40 U/L Alkaline Phosphatase 725 H 46-116 U/L Total Protein 5.7 5.7-8.2 g/dL Albumin 2.7 L 3.2-4.8 g/dL Stool Occult Blood Sample #3 Positive Negative Stool for White Cells None seen Iron Level 82 50-170 ug/dL Total Iron Binding Capacity 233 L 250-425 ug/dL Percent Iron Saturation 35.2 15-50 % Ferritin 1566.8 H 10-291 ng/mL Ammonia 41 H 11-32 umol/L Troponin I High Sensitivity 4490 *H </=34 ng/L Triglycerides Level 490 H < 150 mg/dL Cholesterol Level 327 H < 200 mg/dL LDL Cholesterol < 100 mg/dL HDL Cholesterol 8 L 40-59 mg/dL Lipase 75 H 12-53 U/L Vitamin B12 Level 61560 H 211-911 pg/mL Folic Acid 34.26 >5.38 ng/mL Hepatitis A IgM Antibody Negative Hepatitis B Surface Antigen Negative Negative Hepatitis B Core IgM Antibody Negative Negative Hepatitis C Antibody Negative Negative Test 04/29/25 03:50 04/29/25 03:48 04/29/25 00:10 Range/Units Influenza Type A Antigen Negative Negative Influenza Type B Antigen Negative Negative SARS-CoV-2 Antigen (Rapid) Negative NEGATIVE Urine Color Dark-yellow Yellow Urine Clarity Ex.turbid Clear Urine pH 6.0 5.0-9.0 Urine Specific [place] 1.018 1.001-1.035 Urine Protein 1+ H Negative Urine Ketones Negative Negative Urine Blood 3+ H Negative /uL Urine Nitrite Negative Negative Urine Bilirubin 3+ H Negative Urine Urobilinogen Normal Negative mg/dL Urine Leukocyte Esterase 3+ Negative /uL Urine RBC 3 0 - 4 /hpf Urine WBC Clumps Present None Seen /hpf Urine Microscopic WBC 204 H 0-5 /HPF Urine Squamous Epithelial Cells Few <5 /hpf Urine Bacteria None seen None Seen /hpf Urine Hyaline Casts Few 0 - 2 /lpf Urine Glucose Normal Normal mg/dL Urine Opiates Screen Neg NEGATIVE Urine Fentanyl Screen Neg NEGATIVE Urine Barbiturates Screen Neg NEGATIVE Urine Phencyclidine Screen Neg NEGATIVE Urine Amphetamines Screen Neg NEGATIVE Urine Benzodiazepines Screen Neg NEGATIVE Urine Cocaine Screen Neg NEGATIVE Urine Cannabinoids Screen Neg NEGATIVE Lactic Acid Level 2.0 0.4-2.0 mmol/L Creatine Kinase 4724 H 34-145 U/L B-Type Natriuretic Peptide 556.92 0-100 pg/mL Plasma/Serum Blood Alcohol < 3.0 <10 mg/dL Assessment 73-year-old female with a history of hypertension hyperlipidemia history of hypothyroidism diverticulitis status post drainage in the past now presenting with jaundice abdominal discomfort mildly and weakness and tiredness and pruritus labs showed there was evidence of obstructive jaundice with a bilirubin of 21.5 alk phos high as well as LFTs were LFTs also I CT abdomen and pelvis showed there was evidence of pleural effusion and intra hepatic pancreatic biliary dilatation and hepatomegaly with mild cirrhosis and cholelithiasis and moderate gallbladder distention. Ultrasound showing small liver lesions in the left lobe of the liver possible metastatic disease can not be ruled out Clinical impression Obstructive jaundice possibly from biliary tract obstruction from stones or tumor mass of the pancreas in the of the head level or ampulla Possibility of the liver metastatic disease also can not be excluded Possibility of PBC or other cholestatic diseases less likely Plan/Recommendation We will recommend MRI MRCP as soon as possible Could treat with ursodiol and cholestyramine for the time being Surgical consult Further workup depending upon the MRI results Her all of prognosis is guarded Thank you Dr. Chi Plan discussed with: Patient DAYTON CHI MD Apr 29, 2025 21:13
[2025-04-29 22:00] VITALS: BP 117/55; PULSE 80; RESP 18; TEMP 98; O2SAT 96
[2025-04-30 00:03] VITALS: BP 117/55; PULSE 80; RESP 16; TEMP 98.2; O2SAT 94
[2025-04-30 01:00] VITALS: BP 100/60; PULSE 84; RESP 18; TEMP 98.2; O2SAT 94
[2025-04-30] MEDS ORDERED: DEXTROSE 50% SYRINGE 50 ML IV ONE (02:32)
--- NOTE | 2025-04-30 04:49 | DVHNC2 ---
Intubation Indication: Respiratory Insufficiency, Altered Mental Status, Airway Protection Intubation size: cm (7.5) Informed consent obtained: No Risks/benefits/alt described: No UTO Consent Emergent intubation. Code mary Groves My hands were washed immediately prior to the procedure. I wore a surgical cap, mask with protective eyewear, gown and gloves throughout the procedure. The patient was placed on a manufacturing test engineer including continuous pulse oximetry. Rapid Sequence Intubation was conducted. Using a _ laryngoscope and a size 7.5 endotracheal tube with stylet, the patient was intubated on the 1st attempt. The stylet was removed and cuff balloon was inflated. Appropriate endotracheal tube position was confirmed by direct visualization of vocal cord passage, fogging of the tube, CO2 colormetric indicator and symmetric breath sounds. The tube was secured at 22 cm at the lips. Date of Service: Apr 30, 2025 Billing Provider: LULU MINOR Common Visit Codes: PROCEDURE ONLY Procedure Codes: [id number], [id number] CODE BLUE LULU MINOR Apr 30, 2025 04:49
--- NOTE | 2025-04-30 05:37 | RESUS ---
CODE BLUE ASSESSSMENT History of Events History of Events: 74-year-old female with a history of prior atrial fibrillation and diverticulitis now complains of generalized weakness for last 3 days. Patient was brought in by EMS and they noted that the patient's skin looked yellow. pt was admittedto telemetry, tonight pt became bradycardic when the nurse arrived to room pt was unresponsive with agonal breathing and no pulse. Initial Information Date: Apr 30, 2025 Time: :18 [facility] Witnessed: No CPR started initial time: :18 CPR started by whom: Hospital Staff Pre-Hospital Care: ACLS Type of arrest: Cardiac, Respiratory, Adult, Unwitnessed Spontaneous Respirations: No Pulse Present: No Monitoring: ECG, Pulse Oximetry, Apnea, Telemetry Crash Cart Opened and Supplies: Yes Airway Ventilation Breathing at Onset: Agonal O2 Sat by Pulse Oximetry: 0 Oxygen Delivery Method: Ambu-Bag Oxygen 100% Time of first Assisted Ventila: 02:20 Artificial Ventilation: Bag/Endo tube Intubation Time: 02:20 Intubation Size: 8.0 cuffed Intubated by: MILY BEY Intubation Attempts: 1 Intubated orally: Yes Intubated Nasaly: No Tube secured at: 24 Cricoid pressure done: Yes CO2 indicator used: Yes Confirmation: Auscultation, Exhaled CO2 Suctioning (Oral/Tracheal): No Circulation Circulation : Time: :18 Pulse Rate (adult): 0 Blood Pressure Systolic: 0 Blood Pressure Diastolic: 0 Temperature (Fahrenheit): 097.8 Defibrillation Defbrillation #1: Time Defibrillator Applied: 02:25 EKG Rhythm: V-Fibrillation Compressions: Device Compressions Hold/Resume: 0225 Time Defibrillator Shocked Pt.: 02:25 Defib. Joules: 125 Pulse Present: No EKG Rhythm: V-Fibrillation Defbrillation #2: Time Defibrillator Applied: 02:28 EKG Rhythm: V-Fibrillation Compressions Hold/Resume: 0228 Time Defibrillator Shocked Pt.: 02:28 Defib. Joules: 200 Pulse Present: No EKG Rhythm: V-Fibrillation Defbrillation #3: Time Defibrillator Applied: 02:31 EKG Rhythm: V-Fibrillation Compressions: Device Compressions Hold/Resume: 0231 Time Defibrillator Shocked Pt.: 02:31 Defib. Joules: 200 Pulse Present: No Procedure - IV Procedure - IV : IV Side: Right IV Location: Antecubital IV Placed: In Hospital IV Gauge: 18 IV Line Care: Saline Flush Comment PLACED PRIOR TO ARREST Medications & Response Medications and Responses #1: Medication Time: 02:19 ADULT Medications Given ADULT: Epinephrine 1 mg, Sodium Bacarbinate 50 meq, D50 (amp) (2AMPS BS 24), Calcium Chloride 10 mL Route of Administration: IV Heart Rate: 0 EKG Rhythm: PEA Blood Pressure Systolic: 0 Blood Pressure Diastolic: 0 Respiratory Rate: 0 Defib. Joules: 0 EKG Rhythm: PEA Comment NO PULSE 0222 Medications and Responses #2: Medication Time: 02:22 ADULT Medications Given ADULT: Epinephrine 1 mg, Sodium Bacarbinate 50 meq Route of Administration: IV Heart Rate: 0 EKG Rhythm: PEA Blood Pressure Systolic: 0 Blood Pressure Diastolic: 0 Respiratory Rate: 0 O2 Sat by Pulse Oximetry: 0 EKG Rhythm: V-Fibrillation Comment NO PULSE 0225 Medications and Responses #3: Medication Time: 02:25 ADULT Medications Given ADULT: Epinephrine 1 mg Route of Administration: IV Heart Rate: 0 EKG Rhythm: V-Fibrillation Blood Pressure Systolic: 0 Blood Pressure Diastolic: 0 Respiratory Rate: 0 O2 Sat by Pulse Oximetry: 0 EKG Rhythm: V-Fibrillation Comment NO PULSE 0228 Medications and Responses #4: Medication Time: 02:28 ADULT Medications Given ADULT: Epinephrine 1 mg, Amiodarone 300 mg Route of Administration: IV Heart Rate: 0 Blood Pressure Systolic: 0 Blood Pressure Diastolic: 0 Respiratory Rate: 0 O2 Sat by Pulse Oximetry: 0 EKG Rhythm: V-Fibrillation Comment NO PULSE 0231 Medications and Responses #5: Medication Time: 02:31 ADULT Medications Given ADULT: Epinephrine 1 mg, Amiodarone 150 mg Route of Administration: IV Heart Rate: 0 EKG Rhythm: V-Fibrillation Blood Pressure Systolic: 0 Blood Pressure Diastolic: 0 Respiratory Rate: 0 O2 Sat by Pulse Oximetry: 0 Defib. Joules: 0 EKG Rhythm: PEA Comment NO PULSE 0233 Medications and Responses #6: Medication Time: 02:33 ADULT Medications Given ADULT: Epinephrine 1 mg Route of Administration: IV Heart Rate: 0 EKG Rhythm: PEA Blood Pressure Systolic: 0 Blood Pressure Diastolic: 0 Respiratory Rate: 0 O2 Sat by Pulse Oximetry: 0 Defib. Joules: 0 EKG Rhythm: PEA Comment 023 NO PULSE TOD Pacing Pacer Pads Applied and Pacing: Yes Nurses Notes [place] Coma Scale Eye Opening: None (1) [place] Coma Scale Verbal: None (1) [place] Coma Scale Motor: None (1) [place] Total: 3 Pupil Reaction: Non Reactive Bedside Blood Glucose: 24 EKG Rhythm: PEA Nurses Notes - Comment: REPEAT BS [id number] Time Code Ended Time Code Ended: 02:35 Post Arrest Status: Patient pronounced by: MILY AUTOMATIC PILOT MECHANIC Time patient pronounced: 02:35 Family notified: Yes Attending called: Yes Code Team Present: MILY BEY, LUIS CHILDS RN HS, BRADLEY BUSINESS ANALYST SALES OPERATIONS, WAYLON BUSINESS ANALYST SALES OPERATIONS, DEDRA RN RESOURCE, KAITY RN, KRISTAN RN, HINA RT, RENATA RT Post Resuscitation Neurologica Pupil Size: 4 Comment: LUIS BALDWIN Apr 30, 2025 05:37
--- NOTE | 2025-04-30 06:59 | DVHDS2 ---
Summary Date of Admission Apr 29, 2025 at 03:18 Date and Time of Expiration: Apr 30, 2025 02:35 Labs/Diagnostic Data: Laboratory Results Test 04/29/25 16:41 04/29/25 14:43 04/29/25 10:00 04/29/25 04:05 Prothrombin Time 40.1 sec (9.3-11.8) Prothrombin Time INR 4.38 (0.9-1.15) Activated Partial Thromboplast Time 60.5 SEC (24.5-34.5) White Blood Count 17.9 10^3/uL (4.4-10.8) Red Blood Count 3.57 10^6/uL (4.0-5.20) Hemoglobin 10.4 g/dL (12.2-16.2) Hematocrit 32.6 % (36.0-46.0) Mean Corpuscular Volume 91.3 fL (80.0-100.0) Mean Corpuscular Hemoglobin 29.0 pg (28.0-32.0) Mean Corpuscular Hemoglobin Concent 31.8 g/dL (32.0-36.0) Red Cell Distribution Width 20.1 % (11.8-14.3) Platelet Count 411 10^3/uL (140-450) Mean Platelet Volume 8.6 fL (6.9-10.8) Neutrophils (%) (Auto) % (37.0-80.0) Lymphocytes (%) (Auto) % (10.0-50.0) Monocytes (%) (Auto) % (0.0-12.0) Basophils (%) (Auto) % (0.0-2.0) Neutrophils # (Auto) 10 ^3/uL (1.6-8.6) Lymphocytes # (Auto) 10 ^3/uL (0.4-5.4) Monocytes # (Auto) 10 ^3/uL (0-1.3) Differential Total Cells Counted 100.0 (100) Neutrophils % (Manual) 86 (37.0-80.0) Band Neutrophils % (Manual) 2 Lymphocytes % (Manual) 7 (10.0-50.0) Monocytes % (Manual) 5 (0-12) Eosinophils % (Manual) 0 (0-7) Basophils % (Manual) 0 (0.0-2.0) Metamyelocytes % (manual) 0 Myelocytes % (Manual) 0 Promyelocytes % (Manual) 0 Blast Cells % (Manual) 0 Reactive Lymphocytes 0 Platelet Estimate Adequate Anisocytosis (manual) Slight Sodium Level 126 mmol/L (136-145) Potassium Level 3.9 mmol/L (3.5-5.1) Chloride Level 97 mmol/L (98-107) Carbon Dioxide Level 17 mmol/L (20-31) Anion Gap 12 (5-15) Blood Urea Nitrogen 27 mg/dL (9-23) Creatinine 1.60 mg/dL (0.550-1.02) Glomerular Filtration Rate Calc 33 mL/min (>90) BUN/Creatinine Ratio 16.9 (10.0-20.0) Serum Glucose 100 mg/dL (74-106) Calcium Level 8.4 mg/dL (8.7-10.4) Magnesium Level 1.9 mg/dL (1.6-2.6) Total Bilirubin 20.1 mg/dL (0.2-1.0) Aspartate Amino Transferase (AST) 723 U/L (13-40) Alanine Aminotransferase (ALT) 287 U/L (7-40) Alkaline Phosphatase 725 U/L (46-116) Total Protein 5.7 g/dL (5.7-8.2) Albumin 2.7 g/dL (3.2-4.8) Stool Occult Blood Sample #3 Positive (Negative) Stool for White Cells None seen Iron Level 82 ug/dL (50-170) Total Iron Binding Capacity 233 ug/dL (250-425) Percent Iron Saturation 35.2 % (15-50) Ferritin 1566.8 ng/mL (10-291) Ammonia 41 umol/L (11-32) Troponin I High Sensitivity 4490 ng/L (</=34) Triglycerides Level 490 mg/dL (< 150) Cholesterol Level 327 mg/dL (< 200) LDL Cholesterol mg/dL (< 100) HDL Cholesterol 8 mg/dL (40-59) Lipase 75 U/L (12-53) Vitamin B12 Level 50810 pg/mL (211-911) Folic Acid 34.26 ng/mL (>5.38) Hepatitis A IgM Antibody Negative Hepatitis B Surface Antigen Negative (Negative) Hepatitis B Core IgM Antibody Negative (Negative) Hepatitis C Antibody Negative (Negative) Test 04/29/25 03:50 04/29/25 03:48 04/29/25 00:10 Influenza Type A Antigen Negative (Negative) Influenza Type B Antigen Negative (Negative) SARS-CoV-2 Antigen (Rapid) Negative (NEGATIVE) Urine Color Dark-yellow (Yellow) Urine Clarity Ex.turbid (Clear) Urine pH 6.0 (5.0-9.0) Urine Specific [place] 1.018 (1.001-1.035) Urine Protein 1+ (Negative) Urine Ketones Negative (Negative) Urine Blood 3+ /uL (Negative) Urine Nitrite Negative (Negative) Urine Bilirubin 3+ (Negative) Urine Urobilinogen Normal mg/dL (Negative) Urine Leukocyte Esterase 3+ /uL (Negative) Urine RBC 3 /hpf (0 - 4) Urine WBC Clumps Present /hpf (None Seen) Urine Microscopic WBC 204 /HPF (0-5) Urine Squamous Epithelial Cells Few /hpf (<5) Urine Bacteria None seen /hpf (None Seen) Urine Hyaline Casts Few /lpf (0 - 2) Urine Glucose Normal mg/dL (Normal) Urine Opiates Screen Neg (NEGATIVE) Urine Fentanyl Screen Neg (NEGATIVE) Urine Barbiturates Screen Neg (NEGATIVE) Urine Phencyclidine Screen Neg (NEGATIVE) Urine Amphetamines Screen Neg (NEGATIVE) Urine Benzodiazepines Screen Neg (NEGATIVE) Urine Cocaine Screen Neg (NEGATIVE) Urine Cannabinoids Screen Neg (NEGATIVE) Lactic Acid Level 2.0 mmol/L (0.4-2.0) Creatine Kinase 4724 U/L (34-145) B-Type Natriuretic Peptide 556.92 pg/mL (0-100) Plasma/Serum Blood Alcohol < 3.0 mg/dL (<10) Other Laboratory Tests 04/29/25 14:43 Brief Hx & Hospital Course: Patient Particulars: Ms. Cifuentes, a 74-year-old woman presented to the ER with generalized weakness, pruritus, jaundice for the past 3 weeks. She reported difficulty in ambulation during this time. She also complained of nausea, 1 episode of vomiting as well as 6-7 episodes of watery diarrhea before coming to the ER. She reported feeling more tired than usual, with low energy levels and was unable to move which prompted the visit to the emergency room. She was septic on presentation with pulse of 98, WBC 14.0. Hemoglobin is 10.9, platelet 531. Liver enzymes are elevated with AST 754, ALT 299, ALP 748, total bilirubin 21.5 and troponin I scores are high at 5003, 4922, 4758. Meld score of 36 indicating poor prognosis. She also had elevated ammonia, CK, lipase. UA positive for UTI. CT abdomen and pelvis shows trace bilateral pleural effusion with adjacent atelectasis and patchy posterior bibasilar infiltrates, cardiomegaly, hepatomegaly and cirrhosis, moderate intrahepatic biliary duct dilation, cholelithiasis and moderate gallbladder distention, diverticulosis without diverticulitis. Liver ultrasound shows multiple hypoechoic lesions in left hepatic lobe. CXR shows cardiomegaly, increased interstitial prominence. Preceding Event: Notified by the nurse that the patient was in asystole and unresponsive. Code blue was called by the team. The collections specialist hospitalist team was bedside along with the code team. 25 minutes of BLS/ACLS protocol was conducted following the best practices, iv atropine and iv epinephrine was administered. AED was attached yet shockable rhythm was not found. Intubated with ambu bag respiration continued. The patient remained in asystole and hemodynamically did not respond. Detailed bedside examination revealed: -The patient was unresponsive to verbal or painful stimuli. -Spontaneous Heart and lung sounds are absent. -No spontaneous cardiac or respiratory activity noted over 5 minutes. -No corneal pupillary reflex present while checked twice. -Pupils are fixed and dilated over the examination period. Code timeout performed. The patient was pronounced clinically at 2:35 AM of date 04/30/2025 by Lisandro Pereira MD, resident. Discussed with Dr. Arredondo. Patient's family and patient's nurse were updated by the healthcare team. Appropriate and empathic condolences were provided to the patient's dear ones. The son was on the way while the code blue was ongoing the family is updated empathetically with support from the entire team. Consults/Reason for consult Cardiology consulted, recommended to continue diuresis, echocardiogram and close follow-up GI consulted, recommendations included MRCP, surgical consult and close follow- up Operations or Procedures INDICATION: transaminitis TECHNIQUE: Multiple real-time sonographic images were obtained of the right upper quadrant. COMPARISON: None FINDINGS: The liver demonstrates heterogeneous echotexture without focal mass lesions. The liver measures 18.5 cm. Multiple heterogeneous ill-defined hypoechoic lesions in the liver measuring up to 4.5 cm in the left hepatic lobe. There is no intrahepatic or extrahepatic ductal dilatation. The common duct is suboptimally visualized. Cholelithiasis. The gallbladder wall measures 0.2 cm and is within normal limits. The right kidney measures 11.1 cm. The right kidney is normal in contour, size, and shape. The echogenicity is normal. There is no hydronephrosis. The pancreas is not well visualized due to overlying bowel gas. IMPRESSION: Hepatomegaly. Heterogeneous liver with suggestion of multiple hypoechoic lesions measuring up to 4.5 cm in the left hepatic lobe. Nonemergent CT or MRI liver mass protocol recommended for further evaluation left clinically indicated. Cholelithiasis. T RADIOGRAPH Indication: sob Technique: Single frontal view of the chest was obtained COMPARISON: XY CHEST PORTABLE on DOS: 07/01/24, XY CHEST PORTABLE on DOS: 05/09/24 FINDINGS: Lines and Tubes: None Lungs: Increased interstitial prominence. This may represent pulmonary vascular congestion and/or viral pneumonia. Pleura: No effusion. No pneumothorax. Cardiomediastinal contours: Cardiomegaly. Bones: Unremarkable IMPRESSION: Cardiomegaly. Increased interstitial prominence. This may represent pulmonary vascular congestion and/or viral pneumonia. Exam: CT CT AB PEL WO CON-NO ORAL OR IV History: severe jaundice Comparison Study: CT CT AB PEL WO CON-NO ORAL OR IV on DOS: 07/01/24, CT CT AB PEL WO CON-NO ORAL OR IV on DOS: 05/26/24, CT ABDOMEN WITHOUT CONTRAST on DOS: 05/24/24, CT CT ABD PELVIS W CON-ORAL IV on DOS: 05/23/24, CT CT AB PEL WO CON-NO ORAL OR IV on DOS: 05/18/24 Technique: Multidetector spiral CT of the chest, abdomen and pelvis was performed from lower neck to pubic symphysis Axial, coronal and sagittal multiplanar reformats were performed by the technologist on a separate workstation. Radiation Dose : 1. Chest/Abdomen/Pelvis: CTDIvol 27.69 mGy, DLP 1729.78 mGy*cm. Findings: Lower neck: Normal thyroid. Lungs: Trace bilateral pleural effusions with adjacent atelectasis and patchy posterior bibasilar infiltrate. No evidence of pneumothorax. Heart/Vascular Structures: Cardiomegaly. No pericardial effusion. Lymph Nodes: No adenopathy Pleura: No pleural effusion or significant pneumothorax. Liver: Diffusely cirrhotic hepatic morphology and enlargement, measuring up to 19.5 cm in craniocaudal dimension. Moderate intrahepatic biliary ductal dilatation. No definite focal mass lesions. Gallbladder and Biliary Tree: Cholelithiasis and moderate gallbladder distention. Spleen: Unremarkable Pancreas: The pancreas is normal in appearance without focal lesions or abnormal enhancement. Adrenal Glands: Unremarkable Kidneys: Kidneys demonstrate normal symmetric enhancement without focal lesions, calculi or hydronephrosis. Bladder: Unremarkable Bowel: The stomach is grossly normal in appearance. Diverticulosis coli without CT evidence of acute diverticulitis. Small bowel and colon are otherwise normal in caliber and distribution. The appendix is normal. Ascites: Absent Lymphadenopathy: No mesenteric, retroperitoneal or periportal lymphadenopathy. Abdominal Wall and Mesentery: Unremarkable. Vasculature: The visualized abdominal aorta is normal in size and caliber. Atherosclerotic vascular calcifications. Abdominal and pelvic vessels demonstrate normal enhancement. Pelvic Organs: Unremarkable Musculoskeletal: No aggressive focal bony lesions, acute fractures or dislocation. IMPRESSION: 1. Trace bilateral pleural effusions with adjacent atelectasis and patchy posterior bibasilar infiltrate. 2. Cardiomegaly. 3. Hepatomegaly and cirrhosis. 4. Moderate intrahepatic biliary ductal dilatation. 5. Cholelithiasis and moderate gallbladder distention. 6. Diverticulosis coli without CT evidence of acute diverticulitis. Final Diagnosis/Problems List NSTEMI likely type 2 Paroxysmal atrial fibrillation/flutter [id number] 5 HASBLED 3 Acute respiratory failure Acute on chronic right side heart failure Pulmonary hypertension Hypertension Hyperlipidemia Hypothyroidism Sepsis due to below Acute infectious gastroenteritis Cholelithiasis Acute cholangitis, likely Hepatomegaly and liver cirrhosis Moderate intrahepatic biliary ductal dilatation Possible coagulopathy due to above with up trending INR Liver metastatic disease, possible Acute liver failure Hyperammonemia GI bleed can not be ruled out Obstructive jaundice possibly from biliary tract obstruction from stones or tumor mass of the pancreas in the of the head level, ampulla, possible Acute Gram-positive / Gram-negative bacterial pneumonia Bilateral pleural effusion Hypoxic respiratory failure due to above NSTEMI type 1 versus type 2 Chronic diastolic heart failure History of atrial flutter Hypertension Hyperlipidemia GÓMEZ on CKD class 4 hemodynamically mediated (VMN) eactive Thrombocytosis Platelet 531 Elevated PTT/PT Normocytic anemia, unspecified Diverticulosis without diverticulitis Hypothyroidism Morbid obesity, BMI 53.3 Pancreatitis, ruled out Discharge Disposition: at Hospital JAN[facility] CORTES RESIDENT Apr 30, 2025 06:59
--- NOTE | 2025-04-30 15:22 | DVHSR ---
APPROVED REPORT EXAM: Two-dimensional and M-mode echocardiogram with Doppler and color Doppler. Blood Pressure: 125/55 mmHg INDICATION elevated trops RISK FACTORS Obesity: Height: 5'3, Weight: 320 DIMENSIONS LVDd4.5 (3.8-5.7cm)LA (2D)4.9 (1.9-4.0cm)Aortic Root3.1 (2.0-3.7cm) LVDs3.0 (2.5-4.0cm)LA (MM) (1.9-4.0cm)Aortic Cusp Exc1.7 (1.5-2.0cm) EF (%) 55.0 (55-70%)Rt. Atrium3.9 (1.9-4.0cm)Asc. Aorta cm IVSd0.9 (0.7-1.1cm)RV (D)4.5 (1.8-2.4cm) PWd1.4 (0.7-1.1cm) Mitral Valve MitralMitral Stenosis E wave1.09m/sMV Mean GR.mmHg A wave1.12m/sMV Peak GR.101mmHg E/A ratio1.02D MVAcm2 DECEL [id number] 1/2 [place] Aortic Valve Aortic ValveAortic Stenosis V11.30m/Benjamin Mean GR.6mmHg V21.65m/Benjmain Peak GR.11mmHg LVOT Diameter2.0 (1.8-2.4cm)Doppler AVA2.47cm2 Pulmonic Valve V21.03m/s Tricuspid Valve TR Velocity3.53m/s [id number] Other Information Technically limited study due to body habitus.patient position. Conclusion lvef 55% RV enlarged severe moderate to severe tricuspid regurg severe pulm htn pasp 65
== END 2025-04-30 02:35 | DRG 871 ==
LOC: EDBD 21:26 → EDSEX 21:26 → ER 21:26 → OVERFLOW 04-29 03:18 → TELE-CENTR 04-29 21:50
PROVIDERS: ADMIT Internal Medicine Pulmonary Disease; ATTEND Internal Medicine Geriatric Medicine
PROC: 0BH17EZ Insertion of Endotracheal Airway into Trachea, Via Natural or Artificial Opening (ICD-10-PCS; principal; 2025-04-30)
PROC: 5A12012 Performance of Cardiac Output, Single, Manual (ICD-10-PCS; 2025-04-30)
DX: A41.9 Sepsis, unspecified organism (principal); I21.A1 Myocardial infarction type 2; J15.69 Pneumonia due to other Gram-negative bacteria; J15.9 Unspecified bacterial pneumonia; J96.01 Acute respiratory failure with hypoxia; N17.0 Acute kidney failure with tubular necrosis; K72.00 Acute and subacute hepatic failure without coma; E87.20 Acidosis, unspecified; E72.20 Disorder of urea cycle metabolism, unspecified; J90 Pleural effusion, not elsewhere classified; Z68.43 Body mass index [BMI] 50.0-59.9, adult; I50.32 Chronic diastolic (congestive) heart failure; A09 Infectious gastroenteritis and colitis, unspecified; N39.0 Urinary tract infection, site not specified; J98.11 Atelectasis; I13.0 Hypertensive heart and chronic kidney disease with heart failure and stage 1 through stage 4 chronic kidney disease, or unspecified chronic kidney disease; N18.4 Chronic kidney disease, stage 4 (severe); I48.92 Unspecified atrial flutter; D68.9 Coagulation defect, unspecified; C78.7 Secondary malignant neoplasm of liver and intrahepatic bile duct; C25.0 Malignant neoplasm of head of pancreas; K80.33 Calculus of bile duct with acute cholangitis with obstruction; Z20.822 Contact with and (suspected) exposure to COVID-19; K82.8 Other specified diseases of gallbladder; R16.0 Hepatomegaly, not elsewhere classified; K74.60 Unspecified cirrhosis of liver; E80.6 Other disorders of bilirubin metabolism; I50.813 Acute on chronic right heart failure; D75.839 Thrombocytosis, unspecified; E66.01 Morbid (severe) obesity due to excess calories; I48.0 Paroxysmal atrial fibrillation; E03.9 Hypothyroidism, unspecified; L29.9 Pruritus, unspecified; E86.0 Dehydration; E78.5 Hyperlipidemia, unspecified; K76.82 Hepatic encephalopathy; D64.9 Anemia, unspecified; K57.30 Diverticulosis of large intestine without perforation or abscess without bleeding; I27.20 Pulmonary hypertension, unspecified; K83.8 Other specified diseases of biliary tract; Z79.01 Long term (current) use of anticoagulants; Z82.49 Family history of ischemic heart disease and other diseases of the circulatory system
CPT/HCPCS: 36415; 71045; 74176; 76705; 80053; 80061; 80074; 80307; 80320; 81001; 82140; 82270; 82550; 82607; 82728; 82746; 83540; 83550; 83605; 83690; 83735; 83880; 84484; 85007; 85027; 85048; 85610; 85730; 86038; 87040; 87045; 87086; 87088; 87186; 87205; 87426; 87427; 87493; 87804; 92950; 93005; 93306; 96360; 99291; G0378; J2405; J2470; J3490